=== PATIENT | female | born 1960 | race Caucasian/White ===

== ENCOUNTER 2023-04-12 17:15 | Outpatient (OUT) | payer OTHER, SELFPAY ==
[2023-04-12] MEDS: COVID VAC 23-24(12UP)MODERNA/PF 50 MCG/0.5 ML VIAL IM (17:30)
[2023-04-12] MEDS: FLU VACC QS 23-24(6MS UP)CEL/PF 60 MCG/0.5 ML SYRINGE IM (17:33)
== END 2023-04-12 17:16 | disposition home or self-care (01) ==
LOC: VACCLI 17:23
PROVIDERS: PCP Family Medicine
DX: Z23 Encounter for immunization (principal)
CPT/HCPCS: 90674; 91322; G0008

== ENCOUNTER 2023-07-03 08:38 | Outpatient (OUT) | payer OTHER, SELFPAY ==
--- NOTE | 2023-07-03 | NM_ITS ---
Patient Name: RITA PRADO MR#: [id number] : 1960 Exam Date: 07/03/2023 Ordering Doctor: DR MAGGIE BALDWIN . RADIOLOGY REPORT PROCEDURE: NM TRISTAN PERF SPECT REST STR COMPARISON: None. INDICATIONS: SOB, ABNORMAL EKG TECHNIQUE: Exam Description: Stress/Rest one day protocol gated SPECT Rest Imagin.8 mCi Tc-99m Cardiolite IV on 07/03/2023 Stress Imaging 31.5 mCi Tc-99m Cardiolite IV on 07/03/2023 Exercise Protocol: Brian Heart Rate (bpm): Rest: 65 Max: 153 PMHR: 97 Blood Pressure: Rest: 158/102 Max: 198/112 Exercise Time: Minutes: 6 Seconds: 12 Stage Reached: Stage: 3 Mets 7.6 Symptoms: Rest and peak stress ECG findings were abnormal and the exercise portion of the study was Non-diagnostic per attending physician Dr. Stern due to EKG changes. For more details please see separate cardiac stress test report. FINDINGS: QUALITY OF STUDY: Good. PERFUSION DEFECT: None. LOCATION: N/A SIZE: N/A. SEVERITY: N/A. TYPE: N/A. WALL MOTION: Normal. LV SIZE: Normal. 69 mL. TID / TCD: None; 0.8 LVEF: Normal. Calculated EF 70%. SUMMARY: Myocardial perfusion imaging study is NORMAL. CONCLUSION: 1. No reversible ischemia 2. Abnormal exercise test secondary to EKG changes Dictated by: Vincent Richmond MD on 07/04/2023 at 07:50 Approved by: Vincent Richmond MD on 07/04/2023 at 07:54
--- OUTSIDE RECORDS SUMMARY | 2023-07-03 08:44 | XMS_ITS | CCD ---
Author Name Unknown Address [address] [facility] [facility] [address] [place] [address] Organization [facility] Care Team Providers Care Chainman Name Role Phone HOY ., DR SERRANO Consulting Unavailable HOY ., DR SERRANO Primary Care Unavailable HOY ., DR SERRANO Admitting Unavailable HOY ., DR SERRANO Attending Unavailable [place], DR KIRSSY Gallardo Consulting Unavailable HOY ., DR SERRANO Admitting Unavailable HOY ., DR SERRANO Attending Unavailable HOY ., DR SERRANO Consulting Unavailable HOY ., DR SERRANO Primary Care Unavailable ELVIRA, DR ANOOP Clinton Consulting Unavailable HOY ., DR SERRANO Primary Care Unavailable HOY ., DR SERRANO Admitting Unavailable HOY ., DR SERRANO Attending Unavailable HOY ., DR SERRANO Consulting Unavailable HOY ., DR SERRANO Primary Care Unavailable HOY ., DR SERRANO Consulting Unavailable HOY ., DR SERRANO Admitting Unavailable HOY ., DR SERRANO Attending Unavailable HOY ., DR SERRANO Primary Care Unavailable HOY ., DR SERRANO Consulting Unavailable HOY ., DR SERRANO Admitting Unavailable HOY ., DR SERRANO Attending Unavailable HOY ., DR SERRANO Primary Care Unavailable HOY ., DR SERRANO Consulting Unavailable HOY ., DR SERRANO Admitting Unavailable HOY ., DR SERRANO Attending Unavailable STEVE DUARTE Attending Unavailable STEVE DUARTE Referring Unavailable Problems Active Problems Problem Classification Problem Date Documented Da te Episodic/Chronic Other screening for suspected conditions (not mental disorders or infectious disease) (4 sources) Encounter for screening mammogram for malignant neoplasm of breast; Translations: [ENC SCR MAMMO MALIG NEOPLASM BREAST] Onset: 10-17-2022 Episodic Residual codes; unclassified (1 source) Family history of leukemia; Translations: [FAMILY HISTORY OF LEUKEMIA] Onset: 10-24-2022 Episodic Residual codes; unclassified (1 source) Family history of malignant neoplasm of prostate; Translations: [FAMILY HX MALIG NEOPLASM PROSTATE] Onset: 10-24-2022 Episodic Residual codes; unclassified (1 source) Family history of malignant neoplasm, unspecified; Translations: [FAM HX MALIGNANT NEOPLASM UNS] Onset: 10-24-2022 Episodic Unclassified (3 sources) CONTACT W/AND (SUSP) EXPOS COVID-19; Translations: [CONTACT W/AND (SUSP) EXPOS COVID-19] Onset: 05-29-2022 Unclassified (1 source) COUGH, UNSPECIFIED; Translations: [COUGH, UNSPECIFIED] Onset: 05-29-2022 Past or Other Problems Problem Classification Problem Date Documented Da te Episodic/Chronic Other connective tissue disease (4 sources) Pain in right foot; Translations: [PAIN IN RIGHT FOOT] Onset: 11-30-2021 Episodic Other upper respiratory disease (1 source) Nasal congestion; Translations: [NASAL CONGESTION] Onset: 05-29-2022 Episodic Unclassified (1 source) CONTACT W/AND (SUSP) EXPOS COVID-19; Translations: [CONTACT W/AND (SUSP) EXPOS COVID-19] Onset: 05-25-2022 Results Test Name Value Interpretation Reference Range Facility MG MAMM SCREEN 3D SHELIA CADon 10-17-2022 MG MAMM SCREEN 3D HSELIA CAD Patient: RITA PRADO Exam Date: 10/17/2022 : 1960 Gender:F Ordering : DR MAGGIE BALDWIN . Admission #: [id number] Family : Order #: [id number] CLICK HERE TO VIEW EXAM RADIOLOGY REPORT PROCEDURE: MAMMOGRAM SCREENING 3D BILATERAL CAD COMPARISON: MG MAMM SCREEN SHELIA W CAD, 12/03/2018. MG MAMM SCREEN 3D SHELIA CAD, 04/28/2021. INDICATIONS: Screening mammography Calculator Name NCI Breast Cancer Risk Assessment Tool 5 Year Breast Cancer Risk 1.10% Lifetime Breast Cancer Risk 5.00% Personal Breast Cancer No Personal Ovarian Cancer No Treatments None Family Cancers Grandmother-maternal with leukemia cancer at age 50; Uncle-maternal with prostate cancer at age 70; Grandfather-paternal with unknown cancer at age 80. LOCATION: [facility] BREAST COMPOSITION: Heterogeneously dense,which may obscure small masses. FINDINGS: DIAGNOSTIC CATEGORY 1--NEGATIVE. NO CHANGE FROM COMPARISON ASSESSMENT. Scattered benign-appearing calcifications are present. Scattered benign-appearing lymph nodes are present. RIGHT BREAST: No significant suspicious finding. LEFT BREAST: No significant suspicious finding. RECOMMENDATIONS: ROUTINE MAMMOGRAM AND CLINICAL EVALUATION IN 12 MONTHS. PLEASE NOTE: A NORMAL MAMMOGRAM DOES NOT EXCLUDE THE POSSIBILITY OF BREAST CANCER. A CLINICALLY SUSPICIOUS PALPABLE LUMP SHOULD BE BIOPSIED. Dictated by: Krissy Richmond MD on 10/18/2022 at 09:11 Approved by: Krissy Richmond MD on 10/18/2022 at 09:12 Normal [facility] OCC BLD IMMUNO SCREENon 04-2 OCCULT BLOOD Negative Normal NEGATIVE [facility] Comment on above: Performed By: #### O BSCRN #### [facility] [address] [place] [address] Dr. Estrella Curtis INSULINon 08-31-2022 Insulin 4.5 uIU/mL Normal 2.6-24.9 [facility] Comment on above: Performed By: #### I NSULIN #### [facility] [address] [place] [address] Dr. Estrella Curtis CBC AUTO DIFFon 08-29-2022 BASO # 0.0 103/ul Normal 0.0-0.1 [facility] Comment on above: Performed By: #### C BC #### [facility] [address] [place] [address] Dr. Estrella Curtis Basophils/100 WBC (Bld) 0.4 % Normal 0.2-2.0 [facility] Comment on above: Performed By: #### C BC #### [facility] [address] [place] [address] Dr. Estrella Curtis EO # 0.1 103/ul Normal 0.0-0.7 [facility] Comment on above: Performed By: #### C BC #### [facility] [address] [place] [address] Dr. Estrella Curtis Eosinophils/100 WBC (Bld) 2.8 % Normal 0.9-7.0 [facility] Comment on above: Performed By: #### C BC #### [facility] [address] [place] [address] Dr. Estrella Curtis Erythrocyte distribution width (RBC) [Ratio] 13.3 % Normal 11.0-15.0 [facility] Comment on above: Performed By: #### C BC #### [facility] [address] [place] [address] Dr. Estrella Curtis Hematocrit (Bld) [Volume fraction] 37.4 % Normal 36.0-48.0 [facility] Comment on above: Performed By: #### C BC #### [facility] [address] [place] [address] Dr. Estrella Curtis Hemoglobin (Bld) [Mass/Vol] 12.4 g/dL Normal 12.0-16.0 [facility] Comment on above: Performed By: #### C BC #### [facility] [address] [place] [address] Dr. Estrella Curtis IG # 0.01 10e3/ul Normal 0.00-0.03 [facility] Comment on above: Performed By: #### C BC #### [facility] [address] [place] [address] Dr. Estrella Curtis IG % 0.2 % Normal 0.0-0.5 [facility] Comment on above: Performed By: #### C BC #### [facility] [address] [place] [address] Dr. Estrella Curtis LYMPH # 1.6 103/ul Normal 1.2-3.8 [facility] Comment on above: Performed By: #### C BC #### [facility] [address] [place] [address] Dr. Estrella Curtis Lymphocytes/100 WBC (Bld) 34.3 % Normal 20.5-60.0 [facility] Comment on above: Performed By: #### C BC #### [facility] [address] [place] [address] Dr. Estrella Curtis MANUAL DIFF REQ NO Normal [facility] Comment on above: Performed By: #### C BC #### [facility] [address] [place] [address] Dr. Estrella Curtis MCH (RBC) [Entitic mass] 29.7 pg Normal 26.7-34.0 [facility] Comment on above: Performed By: #### C BC #### [facility] [address] [address] [address] Estrella Curtis MCHC (RBC) [Mass/Vol] 33.2 g/dL Normal 29.9-35.2 [facility] Comment on above: Performed By: #### C BC #### [facility] [address] [address] [address] Estrella Curtis MCV (RBC) [Entitic vol] 89.5 fL Normal 81.0-99.0 [facility] Comment on above: Performed By: #### C BC #### [facility] [address] [place] [address] Dr. Estrella Curtis MONO # 0.4 103/ul Normal 0.3-0.8 [facility] Comment on above: Performed By: #### C BC #### [facility] [address] [place] [address] Dr. Estrella Curtis Monocytes/100 WBC (Bld) 9.2 % Normal 1.7-12.0 [facility] Comment on above: Performed By: #### C BC #### [facility] [address] [place] [address] Dr. Estrella Curtis NEUT # 2.4 103/ul Normal 1.4-6.5 [facility] Comment on above: Performed By: #### C BC #### [facility] [address] [place] [address] Dr. Estrella Curtis Neutrophils/100 WBC (Bld) 53.1 % Normal 43.0-75.0 [facility] Comment on above: Performed By: #### C BC #### [facility] [address] [place] [address] Dr. Estrella Curtis Platelet mean volume (Bld) [Entitic vol] 10.1 fL Normal 9.5-13.5 [facility] Comment on above: Performed By: #### C BC #### [facility] [address] [place] [address] Dr. Estrella Curtis PLT 276 103/ul Normal 150-450 [facility] Comment on above: Performed By: #### C BC #### [facility] [address] [address] [address] Estrella Curtis RBC 4.18 106/ul Critically low 4.20-5.40 [facility] Comment on above: Performed By: #### C BC #### [facility] [address] [address] [address] Estrella Curtis WBC 4.6 103/ul Normal 4.0-11.0 [facility] Comment on above: Performed By: #### C BC #### [facility] [address] [address] [address] Estrella Curtis FREE THYROXINE INDEX T7on FTI 3.14 Normal 1.30-4.50 [facility] Comment on above: Performed By: #### T SH, T7, LIPID, CMP ####[facility] [id number] [address]Dr. Estrella Curtis T3U 33.0 % Normal 30.0-39.0 [facility] Comment on above: Performed By: #### T SH, T7, LIPID, CMP ####[facility] [id number] [id number] Estrella Curtis T4 [Mass/Vol] 9.50 ug/dL Normal 4.80-13.90 [facility] Comment on above: Performed By: #### T SH, T7, LIPID, CMP ####[facility] [id number] [id number] Estrella Curtis GLYCOHEMOGLOBIN A1Con 2022 ADA RECOMMENDATION SEE BELOW Normal [facility] Comment on above: Result Comment: ADA RECOMMENDED LIMIT 4.0 - 6.0 ADA THERAPEUTIC TARGET < 7.0 ACTION SUGGESTED > 7.0 Performed By: #### A 1C #### [facility] [address] [address] [address] Estrella Curtis Glucose [Mass/Vol] 120 mg/dL Normal [facility] Comment on above: Performed By: #### A 1C #### [facility] [address] [address] [address] Estrella Curtis HbA1c (Bld) [Mass fraction] 5.8 % Normal 4.5-6.2 [facility] Comment on above: Performed By: #### A 1C #### [facility] [address] [place] [address] Dr. Estrella Curtis IRONon 08-29-2022 Iron [Mass/Vol] 82.0 ug/dL Normal 50.0-170.0 [facility] Comment on above: Performed By: #### I MONIKA #### [facility] [address] [place] [address] Dr. Estrella Curtis LIPID PROFILEon 08-29-2022 CHOL-HDL RATIO NORM SEE BELOW Normal [facility] Comment on above: Result Comment: 3.3 - 4.4 LOW RISK 4.4 - 7.1 AVERAGE RISK 7.1 - 11.0 MODERATE RISK >11.0 HIGH RISK Performed By: #### T SH, T7, LIPID, CMP #### [facility] [address] [place] [address] Dr. Estrella Curtis Cholesterol [Mass/Vol] 203 mg/dL Critically high <=200 [facility] Comment on above: Performed By: #### T SH, T7, LIPID, CMP #### [facility] [address] [place] [address] Dr. Estrella Curtis Cholesterol in HDL [Mass/Vol] 62 mg/dL Critically high 40-60 [facility] Comment on above: Performed By: #### T SH, T7, LIPID, CMP #### [facility] [address] [place] [address] Dr. Estrella Curtis Cholesterol in LDL [Mass/Vol] 122.2 mg/dL Normal [facility] Comment on above: Performed By: #### T SH, T7, LIPID, CMP #### [facility] [address] [place] [address] Dr. Estrella Curtis Cholesterol.total/Cho lesterol in HDL [Mass ratio] 3.3 {ratio} Normal [facility] Comment on above: Performed By: #### T SH, T7, LIPID, CMP #### [facility] [address] [place] [address] Dr. Estrella Curtis HDL NORMAL > or = 60 mg/dl - LO W CARDIOVASCULAR RISK <40 mg/dl - HIGH CARDIOVASCULAR RISK Normal [facility] Comment on above: Performed By: #### T SH, T7, LIPID, CMP #### [facility] [address] [address] [address] Estrella Curtis LDL CALC NORMAL SEE BELOW Normal [facility] Comment on above: Result Comment: <100 mg/dl OPTIMAL 100 - 129 mg/dl NEAR OR ABOVE OPTIMAL 130 - 159 mg/dl BORDERLINE HIGH 160 - 189 mg/dl HIGH >190 mg/dl VERY HIGH Performed By: #### T SH, T7, LIPID, CMP #### [facility] [address] [address] [address] Estrella Curtis Triglyceride [Mass/Vol] 94 mg/dL Normal <=150 [facility] Comment on above: Performed By: #### T SH, T7, LIPID, CMP #### [facility] [address] [address] [address] Estrella Curtis VLDL CALC 18.8 mg/dL Normal [facility] Comment on above: Performed By: #### T SH, T7, LIPID, CMP #### [facility] [address] [address] [address] Estrella Curtis PROF 14(COMP METB)on 023 Albumin [Mass/Vol] 4.3 g/dL Normal 3.4-5.0 [facility] Comment on above: Performed By: #### T SH, T7, LIPID, CMP #### [facility] [address] [address] [address] Estrella Curtis Albumin/Globulin [Mass ratio] 1.3 {ratio} Normal [facility] Comment on above: Performed By: #### T SH, T7, LIPID, CMP #### [facility] [address] [address] [address] Estrella Curtis ALP [Catalytic activity/Vol] 84 U/L Normal 46-116 [facility] Comment on above: Performed By: #### T SH, T7, LIPID, CMP #### [facility] [address] [place] [address] Dr. Estrella Curtis ALT [Catalytic activity/Vol] 48 U/L Normal 14-59 [facility] Comment on above: Performed By: #### T SH, T7, LIPID, CMP #### [facility] [address] [address] [address] Estrella Curtis Anion gap [Moles/Vol] 12.0 mmol/L Normal [facility] Comment on above: Performed By: #### T SH, T7, LIPID, CMP #### [facility] [address] [address] [address] Estrella Curtis AST [Catalytic activity/Vol] 33 U/L Normal 15-37 [facility] Comment on above: Performed By: #### T SH, T7, LIPID, CMP #### [facility] [address] [place] [address] Dr. Estrella Curtis Bilirubin [Mass/Vol] 0.5 mg/dL Normal 0.2-1.0 [facility] Comment on above: Performed By: #### T SH, T7, LIPID, CMP #### [facility] [address] [place] [address] Dr. Estrella Curtis Calcium [Mass/Vol] 9.3 mg/dL Normal 8.5-10.1 [facility] Comment on above: Performed By: #### T SH, T7, LIPID, CMP #### [facility] [address] [place] [address] Dr. Estrella Curtis Chloride [Moles/Vol] 104 mmol/L Normal 98-107 [facility] Comment on above: Performed By: #### T SH, T7, LIPID, CMP #### [facility] [address] [place] [address] Dr. Estrella Curtis CO2 [Moles/Vol] 29.5 mmol/L Normal 21.0-32.0 [facility] Comment on above: Performed By: #### T SH, T7, LIPID, CMP #### [facility] [address] [address] [address] Estrella Curtis Creatinine [Mass/Vol] 0.89 mg/dL Normal 0.55-1.02 [facility] Comment on above: Performed By: #### T SH, T7, LIPID, CMP #### [facility] [address] [address] [address] Estrella Curtis EGFR-AF TUNISIAN >60 Normal >=60 [facility] Comment on above: Performed By: #### T SH, T7, LIPID, CMP #### [facility] [address] [address] [address] sEtrella Curtis EGFR-NON AF TUNISIAN >60 Normal >=60 [facility] Comment on above: Performed By: #### T SH, T7, LIPID, CMP #### [facility] [address] [address] [address] Estrella Curtis Globulin (S) [Mass/Vol] 3.2 g/dL Normal [facility] Comment on above: Performed By: #### T SH, T7, LIPID, CMP #### [facility] [address] [place] [address] Dr. Estrella Curtis Glucose [Mass/Vol] 97 mg/dL Normal 74-106 [facility] Comment on above: Performed By: #### T SH, T7, LIPID, CMP #### [facility] [address] [address] [address] Estrella Curtis Potassium [Moles/Vol] 4.5 mmol/L Normal 3.5-5.1 [facility] Comment on above: Performed By: #### T SH, T7, LIPID, CMP #### [facility] [address] [address] [address] Estrella Curtis Protein [Mass/Vol] 7.5 g/dL Normal 6.4-8.2 [facility] Comment on above: Performed By: #### T SH, T7, LIPID, CMP #### [facility] [address] [address] [address] Estrella Curtis Sodium [Moles/Vol] 141 mmol/L Normal 136-145 [facility] Comment on above: Performed By: #### T SH, T7, LIPID, CMP #### [facility] [address] [address] [address] Estrella Curtis Urea nitrogen [Mass/Vol] 15.0 mg/dL Normal 7.0-18.0 [facility] Comment on above: Performed By: #### T SH, T7, LIPID, CMP #### [facility] [address] [place], [place] [address] Dr. Estrella Curtis Urea nitrogen/Creatinine [Mass ratio] 16.9 mg/mg Normal [facility] Comment on above: Performed By: #### T SH, T7, LIPID, CMP #### [facility] [address] [place], [place] [address] Dr. Estrella Curtis TSHon 08-29-2022 TSH 5.036 uIU/mL Critically high 0.358-3.740 [facility] Comment on above: Performed By: #### T SH, T7, LIPID, CMP ####[facility] [address] [place], [place] [address]SrNelly Curtis Covid-19 PCR (CVDTBH)on SARS-CoV-2 (COVID-19) RNA FRANCISCO J+probe Ql (Unsp spec) Not detected Normal NOT DETECTED [facility] Comment on above: Result Comment: When diagnostic testing is negative, the possibility of a false negative should be considered in the context of a patient's recent exposures and the presence of clinical signs and symptoms consistent with SARS-CoV-2. This test is not yet approved or cleared by the [place] FDA. When there are no FDA-approved or cleared tests available, and other criteria are met, FDA can make tests available under an emergency access mechanism called an Emergency Use Authorization (EUA). The EUA for this test is supported by the [place] of Health and Human Service's declaration that circumstances exist to justify the emergency use of in vitro diagnostics for the detection and/or diagnosis of the virus that causes COVID-19. This EUA will remain in effect for the duration of the COVID-19 declaration justifying emergency of IVDs, unless it is terminated or revoked by the FDA (after which the test may no longer be used). Performed By: #### C VDTBH ####[facility] [address] [place], [place] [address]L[address] Estrella Curtis INFLUENZA A AND B AGon 05-25 INFLUBNEGH SEE BELOW Normal [facility] Comment on above: Result Comment: Nega tive for Flu B protein antigen. Infection due to Flu B cannot be ruled out. Flu B antigen in the sample may be below the detection limit of the test. Performed By: #### I NFLUAB #### [facility] [address] [address] [address] Estrella Curtis INFLUENZA A AG Positive Abnormal NEGATIVE SEE COMMENT [facility] Comment on above: Performed By: #### I NFLUAB #### [facility] [address] [address] [address] Estrella Curtis INFLUENZA B AG Negative Normal NEGATIVE SEE COMMENT [facility] Comment on above: Performed By: #### I NFLUAB #### [facility] [address] [address] [address] Estrella Curtis INFLUPOSH SEE BELOW Normal [facility] Comment on above: Result Comment: NOTE : Live attenuated influenzae vaccine viruses can cause a positive result for a rapid influenza diagnostic test if administered up to 7 days prior to rapid testing. Performed By: #### I NFLUAB #### [facility] [address] [address] [address] Estrella Curtis INTERNAL CONTROLS Within Normal Limits Normal Wi thin Normal Limits [facility] Comment on above: Performed By: #### I NFLUAB #### [facility] [address] [address] [address] Estrella Curtis Encounters Encounter Date Encounter Type Care Provider Facility Start: 06-26-2023 End: 06-26-2023 ambulatory STEVE DUARTE Not Available Start: 10-17-2022 End: 10-18-[address] MAGGIE BALDWIN . Facility:[facility] Start: 10-12-2022 Encounter for genera l adult medical examination without abnormal findings DR MAGGIE BALDWIN . [facility] Start: 10-06-2022 End: 10-06-[address] MAGGIE BALDWIN . Facility:[facility] Start: 10-06-2022 End: 10-06-2022 Encounter for general adult medical examination without abnormal findings DR MAGGIE BALDWIN . Facility:[facility] Start: 08-29-2022 End: 08-30-[address] MGAGIE BALDWIN . Facility:[facility] Start: 05-25-2022 End: 05-25-[address] MAGGIE BALDWIN . Facility: Start: 05-17-2022 End: 05-18-[address] MAGGIE BALDWIN . Facility: Start: 11-30-2021 End: 12-01-[address] MAGGIE BALDWIN . Facility: Payers Date Payer Category Payer Unknown [id number] 2.16.84 [id number] 1960 Unknown [id number] 2.16.84 [id number] 1960 Unknown [id number] 2.16.84 [id number] 1960 Unknown [id number] 2.16.84 [id number] 1960 Unknown [id number] 2.16.84 [id number] 1960 Unknown [id number] 2.16.84 [id number] 1960 Unknown [id number] 2.16.84 [id number] 1960 Unknown [id number] 2.16.84 [id number] 1959 Private Health Insurance [id number] 1959 Self-pay [id number] Unknown [id number] 2.16.84 [id number] Clinical Note 12-01-2021 Note Date & Type Note Facility 12-01-2021 Note PROCEDURE: XR FOOT R T MIN 3 VIEWS HISTORY: Pain in right foot ; acute second metatarsal pain since twisting injury 4 days ago COMPARISON: None. FINDINGS: BONES:No fracture, acute abnormality, or significant arthropathy. SOFT TISSUES:No visible soft tissue swelling. EFFUSION:None visible. OTHER: Negative. IMPRESSION: 1. No acute bone abnormality. 2. Minimal degenerative changes. Electronically authenticated by: ANOOP FELIX Date: 2021-12-01 11:20 [facility] Summary Purpose Family History No Family History Records FoundNo Family History Records Found Advance Directives No Advanced Directives Records FoundNo Advanced Directives Records Found Additional Source Comments INFORMATION SOURCE (unrecogn ized section and content) DATE CREATED AUTHOR [facility]2022 [facility] DATE CREATED AUTHOR AUTHOR'S ORGANIZ ATION 06/27/2023 [facility] FOR RECORDS PERTAINING TO PATIENTS WHO ARE OR HAVE BEEN ENROLLED IN A CHEMICAL DEPENDENCY/SUBSTANCEABUSE PROGRAM, SOME INFORMATION MAY BE OMITTED. This clinical summary was aggregated from multiple sources. Caution should be exercised in using it in the provision of clinical care. This summary normalizes information from multiple sources, and as a consequence, information in this document may materially change the coding, format and clinical context of patient data. In addition, data may be omitted in some cases. CLINICAL DECISIONS SHOULD BE BASED ON THE PRIMARY CLINICAL RECORDS. [facility] [employer] provides no warranty or guarantee of the accuracy or completeness of information in this document.
--- NOTE | 2023-07-03 17:33 | PM.STRESS ---
Stress Test Stress Test Requesting physician: Gus Herr Procedure: Exercise Cardiolite stress test General Information: Reason for Stress Test: Dyspnea, abnormal EKG Cardiac History and Risk Factors: No personal history. Mother had CABG x4. Resting 12 - Lead Electrocardiogram: Rate & rhythm: Normal sinus at a rate of 62. [place]: Normal T-waves: Flattened to inverted in III ST-segments: Normal orientation The aforementioned abnormal EKG is not available for comparison Stress Test: Protocol: Brian protocol was followed, with injection of Cardiolite once target heart rate was achieved. Exercise capacity: Fair exercise capacity. Total exercise time of 6 minutes 12 seconds reached Brian stage 3 at 3.4MPH, 14% grade, & 7.6 METs. Blood pressure: Initial: 158/102, Maximum: 198/112, Recovery: 148/90 Rate & rhythm: Patient remained in sinus rhythm during the exercise and recovery portions of the study.? The maximum heart rate was 153, which was 97% of the maximum predicted heart rate 157. ST-segments & T-waves: During exercise, the T waves in lead III were positive orientation; they returned to baseline inverted orientation by the end of recovery. Patient response/symptoms: There were no symptoms similar to the chief complaint. Interpretation: Non-diagnostic exercise stress test based on T-wave changed in III. No reciprocal changes were noted in II or aVF. No reproducible symptoms. Cardiolite imaging interpretation will be reported separately. Clinical correlation required.?
== END 2023-07-03 08:39 | disposition home or self-care (01) ==
LOC: NM 08:38
PROVIDERS: PCP Family Medicine; Visit Provider Family Medicine
DX: R06.02 Shortness of breath (principal); R94.31 Abnormal electrocardiogram [ECG] [EKG]
CPT/HCPCS: 78452; 93017; A9500

== ENCOUNTER 2023-11-15 14:45 | Outpatient (OUT) | payer OTHER, SELFPAY ==
--- NOTE | 2023-11-15 14:50 | MM_ITS ---
Patient Name: RITA PRADO MR#: [id number] : 1960 Exam Date: 11/15/2023 Ordering Doctor: DR Gus Herr . RADIOLOGY REPORT PROCEDURE: MM TOMOSYNTHESIS SCREENING BI COMPARISON: MG MAMM SCREEN 3D SHELIA CAD, 04/28/2021. MG MAMM SCREEN 3D SHELIA CAD, 10/17/2022. INDICATIONS: Screening Calculator Name NCI Breast Cancer Risk Assessment Tool 5 Year Breast Cancer Risk 1.10% Lifetime Breast Cancer Risk 4.90% Personal Breast Cancer No Personal Ovarian Cancer No Treatments None Family Cancers Grandmother-maternal with leukemia cancer at age ~50; Uncle-maternal with prostate cancer at age ~70; Grandfather-paternal with unknown cancer at age ~80. LOCATION: [facility] BREAST COMPOSITION: The breasts are heterogeneously dense,which may obscure small masses. FINDINGS: DIAGNOSTIC CATEGORY 1--NEGATIVE. Scattered benign-appearing lymph nodes are present. RIGHT BREAST: No significant suspicious finding. LEFT BREAST: No significant suspicious finding. RECOMMENDATIONS: ROUTINE MAMMOGRAM AND CLINICAL EVALUATION IN 12 MONTHS. PLEASE NOTE: A NORMAL MAMMOGRAM DOES NOT EXCLUDE THE POSSIBILITY OF BREAST CANCER. A CLINICALLY SUSPICIOUS PALPABLE LUMP SHOULD BE BIOPSIED. Dictated by: Vincent Richmond MD on 11/15/2023 at 15:30 Approved by: Vincent Richmond MD on 11/15/2023 at 15:32
== END 2023-11-15 14:46 | disposition home or self-care (01) ==
LOC: MAMMO 14:45
PROVIDERS: PCP Family Medicine; Visit Provider Family Medicine
DX: Z12.31 Encounter for screening mammogram for malignant neoplasm of breast (principal); Z80.6 Family history of leukemia; Z80.42 Family history of malignant neoplasm of prostate; Z80.8 Family history of malignant neoplasm of other organs or systems
CPT/HCPCS: 77063; 77067

== ENCOUNTER 2024-01-01 08:09 | Outpatient (OUT) | payer OTHER, SELFPAY ==
--- OUTSIDE RECORDS SUMMARY | 2024-01-01 08:20 | XMS_ITS | CCD ---
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 Role Phone HARSHILY ., DR SERRANO Consulting Unavailable HOY ., DR SERRANO Primary Care Unavailable HOY ., DR SERRANO Admitting Unavailable HOY ., DR SERRANO Attending Unavailable JAY, DR KRISSY Gallardo Consulting Unavailable HOY ., DR SERRANO [...] Unavailable HOY ., DR SERRANO Attending Unavailable DUARTE, STEVE T Attending Unavailable DUARTE, STEVE T Referring Unavailable DUARTE STEVE T Attending Unavailable DUARTE STEVE T Attending Unavailable GERALD STEVE T Attending Unavailable Maggie Herr Primary Care Physician [phone] RAMONA CHAVARRIA Attending Unavailable RAMONA CHAVARRIA Attending Unavailable RAMONA CHAVARRIA Admitting Unavailable MAGGIE HERR Primary Care Unavailable AUGUSTINA YOO Referring Unavailabl aurelia YOO, AUGUSTINA KING Referring Unavailabl e MAGGIE HERR Primary Care Unavailable AUGUSTINA YOO Attending Unavailabl e YOO, AUGUSTINA KING Referring MAGGIE Noble Primary Care Unavailable AUGUSTINA YOO Attending AUGUSTINA Whitman Referring MAGGIE Noble Primary Care Unavailable Allergies Allergy Classification Reported Allergen(s) Allergy Type Date of Onset Reaction(s) Facility (1 source) No Known Medication Allergies; Translations: [No Known Medication Allergies] Propensity to adverse reactions (disorder) [facility] Repository Medications Current Medications Medication Drug Class(es) Dates Sig (Normalized) Sig (Original) aspirin 81 mg oral capsule (2 sources) Platelet Aggregation Inhibitor, Nonsteroidal Anti-inflammatory Drug Start: 10-23-2023 take 1 capsule by mouth every twenty-four hours aspirin 81 mg oral capsule 81 mg = 1 cap(s), Oral, q24hr Start Date: 10/23/23 Status: Ordered Iron Chews (2 sources) Start: 10-23-2023 take 1 mg by mouth once daily Iron Chews mg, Oral, Daily Start Date: 10/23/23 Status: Ordered meloxicam 15 mg oral tablet (2 sources) Nonsteroidal Anti-inflammatory Drug Start: 10-23-2023 meloxicam 15 mg Tab 15 mg = 1 tab(s) Start Date: 10/23/23 Status: Ordered Metoprolol (2 sources) beta-Adrenergic Mark Start: 10-23-2023 Metoprolol tartrate 50 mg Tab 50 mg = 1 tab(s) Start Date: 10/23/23 Status: Ordered pantoprazole 40 mg delayed release oral tablet (2 sources) Proton Pump Inhibitor Start: 10-23-[address] Tab 40 mg = 1 tab(s) Start Date: 10/23/23 Status: Ordered simvastatin 20 mg oral tablet (2 sources) HMG-CoA Reductase Inhibitor Start: 10-23-2023 simvastatin 20 mg Tab 20 mg = 1 tab(s) Start Date: 10/23/23 Status: Ordered Problems Active Problems Problem Classification Problem Date Documented Date Episodic/Chronic Abdominal pain (7 sources) Abdominal pain; Translations: [Unspecified abdominal pain] Onset: 10-23-2023 Episodic Disorders of lipid metabolism (2 sources) Hyperlipidemia 10-23-2023 Chronic Essential hypertension (2 sources) Hypertensive disorder 10-23-2023 Chronic Genitourinary symptoms and ill-defined conditions (6 sources) Increased frequency of urination; Translations: [Frequency of micturition] Onset: 10-23-2023 Episodic Inflammatory diseases of female pelvic organs (1 source) Subacute and chronic vaginitis; Translations: [Subacute and chronic vaginitis] Onset: 11-29-2023 Episodic Other diseases of bladder and urethra (3 sources) Urethral stricture; Translations: [Other urethral stricture, female] Onset: 10-23-2023 Episodic Other female genital disorders (1 source) Noninflammatory disorder of the vagina; Translations: [Other specified noninflammatory disorders of vagina] Onset: 10-23-2023 Episodic Other female genital disorders (2 sources) Vaginal odor 10-23-2023 Episodic Other screening for suspected conditions (not mental disorders or infectious disease) (5 sources) Encounter for screening mammogram for malignant neoplasm of breast; Translations: [Encounter for screening for malignant neoplasm of cervix] Onset: 10-17-2022 Episodic Residual codes; unclassified (1 source) Family history of leukemia; Translations: [FAMILY HISTORY OF LEUKEMIA] Onset: 10-24-2022 Episodic Residual codes; unclassified (1 source) Family history of malignant neoplasm of prostate; Translations: [FAMILY HX MALIG NEOPLASM PROSTATE] Onset: 10-24-2022 Episodic Residual codes; unclassified (1 source) Family history of malignant neoplasm, unspecified; Translations: [FAM HX MALIGNANT NEOPLASM UNS] Onset: 10-24-2022 Episodic Screening and history of mental health and substance abuse codes (3 sources) H/O: Disorder; Translations: [Personal history of nicotine dependence] Onset: 10-23-2023 Episodic Unclassified (3 sources) CONTACT W/AND (SUSP) [...] Test Name Value Interpretation Reference Range Facility CT ABDOMEN PELVIS W IV CONTR Yael 12-11-2023 CT ABDOMEN PELVIS W IV CONTRAST EXAMINATION: CT OF THE ABDOMEN AND PELVIS WITH CONTRAST 12/05/2023 4:45 pm TECHNIQUE: CT of the abdomen and pelvis was performed with the administration of intravenous contrast. Multiplanar reformatted images are provided for review. Automated exposure control, iterative reconstruction, and/or weight based adjustment of the mA/kV was utilized to reduce the radiation dose to as low as reasonably achievable. COMPARISON: Pelvic ultrasound 11/29/2023. HISTORY: ORDERING SYSTEM PROVIDED HISTORY: Pelvic pain TECHNOLOGIST PROVIDED HISTORY: STAT Creatinine as needed:->Yes FINDINGS: Lung Bases: Bibasilar dependent atelectasis. No focal consolidation.. Inferior Mediastinum: Cardiomegaly.. Liver: Normal size and morphology. Diffusely hypoattenuating compatible with affected is the. Gallbladder: No calcified gallstones or sludge. No wall thickening.. Biliary System: Unremarkable.. Pancreas: Normal.. Spleen: Normal.. Adrenals: Normal. Kidneys: Normal bilaterally.. Ureters: Normal course and caliber bilaterally. . Bladder: Normal. . Pelvis: No pelvic masses. Multifibroid uterus better appreciated on prior ultrasound 11/29/2023. No abnormal pelvic fluid.. Stomach: Normal. Duodenum: Normal. Small Bowel: Normal. Colon: Sigmoid diverticulosis without diverticulitis.. Appendix: Normal. Lymph Nodes: No lymphadenopathy. Peritoneum: No ascites or free air. Retroperitoneum: Normal. Vessels: Minimal atherosclerotic plaques of the abdominal aorta and branch vessels. Prominent right gonadal vein with calcifications along its course.. Abdominal Wall: Small fat containing bilateral inguinal hernias.. Bones: Degenerative changes of the pubic symphysis, bilateral sacroiliac joints and multilevel degenerative change throughout the lumbar spine. Degenerative changes of the bilateral femoroacetabular joints. Irregularity of the right lateral posterior ribs likely sequelae of prior trauma.. IMPRESSION: 1. No acute intra-abdominal or pelvic process. 2. Hepatic steatosis. 3. Sigmoid diverticulosis without diverticulitis. 4. Multifibroid uterus better appreciated on prior ultrasound 11/29/2023. 5. Prominent right gonadal vein with calcifications along its course. Correlate for pelvic congestion syndrome. 6. Small fat containing bilateral inguinal hernias. Interpreted by: Hayder Nixon DO Signed by: Hayder Nixon DO 12/11/23 Final result Normal [facility] Creatinine w/GFRon Creatinine [Mass/Vol] 0.9 mg/dL Normal 0.5-0.9 [facility] Comment on above: Performed By: #### C REG #### [facility] [address] [place], [place] [id number] Estimator Binding: Krissy Sweet MD GFR/1.73 sq M.predicted among non-blacks MDRD (S/P/Bld) [Vol rate/Area] 72 mL/min/{1.73_m2} Normal >60 [facility] Comment on above: Result Comment: These results are not intended for use in patients <18 years of age. eGFR results are calculated without a race factor using the 2020 CKD-EPI equation. Careful clinical correlation is recommended, particularly when comparing to results calculated using previous equations. The CKD-EPI equation is less accurate in patients with extremes of muscle mass, extra-renal metabolism of creatine, excessive creatine ingestion, or following therapy that affects renal tubular secretion. Performed By: #### C REG #### [facility] [address] [place] [address] Estimator Binding: Krissy Sweet MD NON OB TRANSVAGINALon US NON OB TRANSVAGINAL UTERUS: Anteverted uterus with a heterogeneous echotexture ENDO: measures 3.5 mm RT. OVARY: Not visualized LT. OVARY: Not visualized Questionable adenomyosis of the uterus? FIBROIDS: #1 Mid posterior uterus measures 2.8 x 1.9 x 4.0 cm #2 Mid Right uterus measures 2.0 x 1.7 x 1.8 cm Interpreted by: Augustina Yoo, VICKI - Cinthya Agrawal DO Signed by: Cinthya Cano DO 12/05/23 Final result Normal [facility] Cult,Genitalon 12-03-2023 Cult,Genital Specimen Description .VAGINA Special Requests Site: Genital Culture STREPTOCOCCI, BETA HEMOLYTIC GROUP B LIGHT GROWTH NORMAL URO-GENITAL DENISE NEGATIVE FOR NEISSERIA GONORRHOEAE Report Status FINAL 12/03/2023 [facility] Comment on above: Performed By: #### G EC #### [id number] [place] [address] Estimator Binding: Kenton Marcelino MD [facility] [address] [place] [address] Estimator Binding: Krissy Sweet MD HPV DNA High Riskon 12-03-19 24 HPV Interp [facility] Comment on above: Result Comment: This test amplifies and detects DNA of 14 high-risk HPV types associated with cervical cancer and its precursor lesions (HPV types 16,18, 31, 33, 35, 39, 45, 51, 52, 56, 58, 59, 66, and 68). Sensitivity may be affected by specimen collection methods, stage of infection, and the presence of interfering substances. Results should be interpreted in conjunction with other available laboratory and clinical data. A negative high-risk HPV result does not exclude the possibility of future cytologic HSIL or underlying CIN2-3 or cancer. This test is intended for medical purposes only and is not valid for the evaluation of suspected sexual abuse or for other forensic purposes. Performed By: #### H PVH #### [address] [address] Estimator Binding: Kenton Marcelino MD HPV Type 16 Not detected [facility] Comment on above: Performed By: #### H PVH #### [facility] [employer] [facility] [place] [address] Estimator Binding: Kenton Marcelino MD HPV Type 18 Not detected [facility] Comment on above: Performed By: #### H PVH #### [facility] [employer] [address] [place] [address] Estimator Binding: Kenton Marcelino MD Other High Risk HPV Not detected [place] Comment on above: Performed By: #### H PVH #### [address] [address] Estimator Binding: Kenton Marcelino MD HPV DNA High Riskon 11-30-19 HPV Sample .THIN PREP Normal [facility] Comment on above: Performed By: #### H PVH #### [address] [place] [address] Estimator Binding: Kenton Marcelino MD Source CERVICAL MATERIAL Normal [facility] Comment on above: Performed By: #### H PVH #### [address] [address] Estimator Binding: Kenton Marcelino MD Vaginitis DNA Probeon 2023 Olena Negative [facility] Comment on above: Result Comment: for Olena sp. Method of testing is a DNA probe intended for detection and identification of Olena species, Gardnerella vaginalis, and Trichomonas vaginalis nucleic acid in vaginal fluid specimens from patients with symptoms of vaginitis/vaginosis. Performed By: #### V AGP #### [address] [address] Estimator Binding: Kenton Marcelino MD [facility] [address] [place] [address] [place] [address] Estimator Binding: Krissy Sweet MD Gardnerella Negative [facility] Comment on above: Result Comment: for Gardnerella vaginalis Performed By: #### V AGP #### [address] [address] Estimator Binding: Kenton Marcelino MD [facility] [address] [place] [address] [place] [address] Estimator Binding: Krissy Sweet MD Trichomonas Negative [facility] Comment on above: Result Comment: for Trichomonas Vaginalis Performed By: #### V AGP #### [address] [address] Estimator Binding: Kenton Marcelino MD [facility] [address] [place] [address] Estimator Binding: Krissy Sweet MD Cytology Reporton 11-29-2023 Cytology report Cyto stain.thin prep Doc (Cvx/Vag) (NOTE) Path Number: [id number] DIAGNOSIS Imaged ThinPrep Pap - Cervical (1 monolayer slide): Specimen Adequacy: Satisfactory for evaluation. - Endocervical/transform ation zone component present. Descriptive Diagnosis: Negative for intraepithelial lesion or malignancy. Cytotech Screener: EY Electronically Signed Out Abida CASTAÑEDA(ASCP) ey/12/12/2023 Procedure/Addendum HPV Procedure Report Date Ordered: 11/30/2023 Status: Signed Out Date Complete: 12/03/2023 By: System Interface Date Reported: 12/03/2023 Sample: HPV Type 16 Result: Not Detected Ref Range: (Not Detected) Sample: HPV Type 18 Result: Not Detected Ref Range: (Not Detected) Sample: Other High Risk HPV Result: Not Detected Ref Range: (Not Detected) Sample: HPV Interp Result: Ref Range: (Not Detected) This test amplifies and detects DNA of 14 high-risk HPV types associated with cervical cancer and its precursor lesions (HPV types 16,18, 31, 33, 35, 39, 45, 51, 52, 56, 58, 59, 66, and 68). Sensitivity may be affected by specimen collection methods, stage of infection, and the presence of interfering substances. Results should be interpreted in conjunction with other available laboratory and clinical data. A negative high-risk HPV result does not exclude the possibility of future cytologic HSIL or underlying CIN2-3 or cancer. This test is intended for medical purposes only and is not valid for the evaluation of suspected sexual abuse or for other forensic purposes. Performed at [facility] [address] [place] [address] ([phone] Source of Specimen: A: Imaged ThinPrep Pap - Cervical (1 monolayer slide) HPV Reflex?............... .......HPV Regardless Clinical History Postmenopausal Z12.4 Encounter for screening for malignant neoplasm of cervix Processing Lab: [facility] [address] [place] [address] Interpretation performed at [address] [address] This Pap Test has been evaluated with the assistance of the [employer] Pap Test Imaging System. The Pap smear is a screening test primarily for squamous epithelial lesions, which is subject to both false negative and false positive results. Your patient should be reminded to consult you immediately if she experiences any suspicious signs or symptoms, regardless of her Pap smear result. GYNECOLOGIC CYTOLOGY REPORT Patient Name: MICHELLE PRADO [facility] Rec: [id number] [facility] ANATOMIC PATHOLOGY [address] [place] [address]. [place], [place] [address] Normal [facility] Vaginitis DNA Probeon 2023 Source .VAGINAL SWAB Normal [facility] Comment on above: Performed By: #### V AGP #### [address] [address] Estimator Binding: Kenton Marcelino MD [facility] [address] [place] [address] [place], [place] [id number] Estimator Binding: Krissy Sweet MD [place] 10-30-2023 Screens [id number] 02 [id number]. [id number] Normal [facility] Urology Office/Clinic Noteon 10-26-2023 Urology Office/Clinic Note Chief Complaint New Pt HPI Staff New pt. Last seen in our office by RWR 09/29/13 due to Urgency & Frequency Started on Toviaz at that time. HX of Cysto/UD 2002 & 2014 A1C 08/29/22- 5.8 CMP 08/29/22 *BUN 15.0 Crea 0.89 eGFR >60 Dysuria: no Incomplete bladder emptying: Pt. states she has to sit for a while to fully empty, Pt. states usually at night Hematuria: no Frequency: every hour Urgency: occasionally Nocturia: at least 2x's Stream: good stream Post void dripping: no Wearing pads/ Depends: no Urge incontinence: no Stress incontinence: not often Incontinence without Sensory Awareness: no Abdominal pain: Pt. states having abd pain Flank pain: Pt. states having back History of Present Illness staff HPI reviewed and agree. Review of Systems PHQ Score Initial Depression Screen Score: 0 SCORE no fever, chills, malaise, myalgia. no rash/lesions. no chest pain, palpitations, or SOB. no abdominal pain, nausea, vomiting. no unilateral calf swelling, redness, pain Physical Exam Vitals & Measurements HR: 61(Peripheral) RR: 20 BP: 162/97 HT: 65 in HT: 165 cm WT: 96 kg WT: 211.2 lb BMI: 35.26 General: nontoxic, NAD Mouth: moist mucosa Lungs: normal respiratory effort Cardio: regular rate, good distal perfusion Abdomen: nondistended, no suprapubic distention or tenderness, no CVA tenderness Neurologic: Grossly normal Skin: No rashes or suspicious lesions Assessment/Plan Micehlle is a 63 yo female new pt, prior RWR pt. 08/29/22 - A1c 5.8. BUN 15. Cr 0.89. eGFR >60. 1. Vaginal odor (N89.8: Other specified noninflammatory disorders of vagina) Reports ongoing odor for a while. No discharge or bleeding. No burning or itching. Hx of yeast infections but feels current sxs are different. [place] sxs may be related to UTI. However denies urgency, change in frequency, dysuria, gross hematuria. UA today negative for blood and infection. Recommended gynecologic swab and to f/u with WORKER'S COMPENSATION CLAIMS EXAMINER to further discuss sxs. -Submit WORKER'S COMPENSATION CLAIMS EXAMINER cx. Will call pt with results. -pt to call and schedule WORKER'S COMPENSATION CLAIMS EXAMINER appt. 2. Abdominal pain (R10.9: Unspecified abdominal pain) Reports mild diffuse lower abdominal pain. 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 No recent changes. Mild. Denies constipation. Denies hx of kidney stones. No recent UTIs. 3. Urinary frequency (R35.0: Frequency of micturition) BBS 10-12. Voiding every hour, ongoing for years. Not very bothersome. Related to large fluid intake. 4. History of recurrent UTI (urinary tract infection) (Z87.440: Personal history of urinary (tract) infections) Reports she used to get recurrent infections. Struggled with these when she was a child. No UTIs for many years now. 5. Other urethral stricture, female (N35.82: Other urethral stricture, female) S/p Cysto/UD 09/23/13 by RWR - Bladder trabeculation and smaller bladder capacity. No gross evidence of IC. No tumors or stones. Good stream. Has to sit for a while to empty completely, typically at night. No complaints. 6. Former smoker (Z87.891: Personal history of nicotine dependence) Age 20-40, 1 PPD. Risk factor for urothelial ca. Follow-up With When Contact Information AURA CROUCH, RAMONA Schneider, URL [address] [place] [address] [phone] Additional Instructions: f/u with WORKER'S COMPENSATION CLAIMS EXAMINER Patient Education Abdominal Pain, Adult Documentation recorded by the jorge Beltran accurately reflects the services(s) I performed and decisions made by me. Authenticated by Ramona Chavarria PA-C on 10/26/2023 10:05:56. ISanna, personally scribed for Ramona Chavarria PA-C on 10/23/2023 16:24:48. . Problem List/Past Medical History Ongoing Abdominal pain Former smoker History of recurrent UTI (urinary tract infection) Hyperlipidemia Hypertension Other urethral stricture, female Urinary frequency Vaginal odor Historical No qualifying data Procedure/Surgical History Cystourethroscopy with dilation of urethral stricture (09/23/2013), Cystourethroscopy with dilation of urethral stricture (04/29/2003), Tubal ligation. Medications aspirin 81 mg oral capsule, 81 mg= 1 cap(s), Oral, q24hr Iron Chews, Oral, Daily meloxicam 15 mg Tab, 15 mg= 1 tab(s) Metoprolol tartrate 50 mg Tab, 50 mg= 1 tab(s) Pantoprazole [address] Tab, 40 mg= 1 tab(s) simvastatin 20 mg Tab, 20 mg= 1 tab(s) Allergies No Known Medication Allergies Social History Alcohol - Low Risk, 10/23/2023 Tobacco Former smoker, quit more than 30 days ago Tobacco Use:., 10/23/2023 Family History Arthritis: Grandparent. Hyperlipidemia: Mother. Hypertension: Mother. Leukemia: Grandparent. Migraine: Mother. Primary malignant neoplasm of lung: Father. Lab Results Ambulatory Point of Care Results Bilirubin Urine Dipstick: Negative (10/23/23 16:12:00) Blood Urine Dipstick: Negative (10/23/23 16:12:00) Glucose Urine Dipstick: Negative ( (more content not included)... Normal [facility] Comment on above: Result Comment: Elec tronically Signed By: RAMONA CHAVARRIA PA-C\.br\Date and Time Signed: 10/26/23 10:18 EDT\.br\Electronically Co-Signed By: Sanna Beltran\.br\Date and Time Co-Signed: 10/23/23 16:26 EDT Patient Educationon 10-23-19 Patient Education Gastroenterology Abdominal Pain, Adult Pain in the abdomen (abdominal pain) can be caused by many things. Often, abdominal pain is not serious and it gets better with no treatment or by being treated at home. However, sometimes abdominal pain is serious. Your health care provider will ask questions about your medical history and do a physical exam to try to determine the cause of your abdominal pain. Follow these instructions at home: Medicines ? Take kpyg-isf-kgryvpy and prescription medicines only as told by your health care provider. ? Do not take a laxative unless told by your health care provider. General instructions ? Watch your condition for any changes. ? Drink enough fluid to keep your urine pale yellow. ? Keep all follow-up visits as told by your health care provider. This is important. Contact a health care provider if: ? Your abdominal pain changes or gets worse. ? You are not hungry or you lose weight without trying. ? You are constipated or have diarrhea for more than 2?3 days. ? You have pain when you urinate or have a bowel movement. ? Your abdominal pain wakes you up at night. ? Your pain gets worse with meals, after eating, or with certain foods. ? You are vomiting and cannot keep anything down. ? You have a fever. ? You have blood in your urine. Get help right away if: ? Your pain does not go away as soon as your health care provider told you to expect. ? You cannot stop vomiting. ? Your pain is only in areas of the abdomen, such as the right side or the left lower portion of the abdomen. Pain on the right side could be caused by appendicitis. ? You have bloody or black stools, or stools that look like tar. ? You have severe pain, cramping, or bloating in your abdomen. ? You have signs of dehydration, such as: ? Dark urine, very little urine, or no urine. ? Cracked lips. ? Dry mouth. ? Sunken eyes. ? Sleepiness. ? Weakness. ? You have trouble breathing or chest pain. Summary ? Often, abdominal pain is not serious and it gets better with no treatment or by being treated at home. However, sometimes abdominal pain is serious. ? Watch your condition for any changes. ? Take zkbk-new-ljrmhhu and prescription medicines only as told by your health care provider. ? Contact a health care provider if your abdominal pain changes or gets worse. ? Get help right away if you have severe pain, cramping, or bloating in your abdomen. This information is not intended to replace advice given to you by your health care provider. Make sure you discuss any questions you have with your health care provider. Document Revised: 07/23/2020 Document Reviewed: 10/13/2019 [employer] Patient Education ? 2022 [employer]. [facility] MG MAMM SCREEN 3D SHELIA CADon 10-17-2022 MG MAMM SCREEN 3D SHELIA CAD Patient: MICHELLE PRADO Exam Date: 10/17/2022 : 1960 Gender:F Ordering : DR MAGGIE HERR . Admission #: [id number] Family : Order #: [id number] CLICK HERE TO VIEW EXAM RADIOLOGY REPORT [...] unknown cancer at age 80. LOCATION: [facility] BREAST COMPOSITION: Heterogeneously dense,which may obscure small [...] MD on 10/18/2022 at 09:12 Normal [facility] OCC BLD IMMUNO SCREENon 04-2 OCCULT BLOOD Negative Normal NEGATIVE [facility] Comment on above: Performed By: #### O BSCRN #### [facility] [address] [place] [address] Dr. Estrella Curtis INSULINon 08-31-2022 Insulin 4.5 uIU/mL Normal 2.6-24.9 [facility] Comment on above: Performed By: #### I NSULIN #### [facility] [address] [place] [address] Dr. Estrella Curtis CBC AUTO DIFFon 08-29-2022 BASO # 0.0 103/ul Normal 0.0-0.1 [facility] Comment on above: Performed By: #### C BC #### [facility] [address] [place] [address] Dr. Estrella Curtis Basophils/100 WBC (Bld) 0.4 % Normal 0.2-2.0 [facility] Comment on above: Performed By: #### C BC #### [facility] [address] [place] [address] Dr. Estrella Curtis EO # 0.1 103/ul Normal 0.0-0.7 [facility] Comment on above: Performed By: #### C BC #### [facility] [address] [place] [address] Dr. Estrella Curtis Eosinophils/100 WBC (Bld) 2.8 % Normal 0.9-7.0 [facility] Comment on above: Performed By: #### C BC #### [facility] [address] [place] [address] Dr. Estrella Curtis Erythrocyte distribution width (RBC) [Ratio] 13.3 % Normal 11.0-15.0 [facility] Comment on above: Performed By: #### C BC #### [facility] [address] [address] [address] Estrella Curtis Hematocrit (Bld) [Volume fraction] 37.4 % Normal 36.0-48.0 [facility] Comment on above: Performed By: #### C BC #### [facility] [address] [place] [address] Dr. Estrella Curtis Hemoglobin (Bld) [Mass/Vol] 12.4 g/dL Normal 12.0-16.0 [facility] Comment on above: Performed By: #### C BC #### [facility] [address] [place] [address] Dr. Estrella Curtis IG # 0.01 10e3/ul Normal 0.00-0.03 [facility] Comment on above: Performed By: #### C BC #### [facility] [address] [place] [address] Dr. Estrella Curtis IG % 0.2 % Normal 0.0-0.5 [facility] Comment on above: Performed By: #### C BC #### [facility] [address] [place] [address] Dr. Estrella Curtis LYMPH # 1.6 103/ul Normal 1.2-3.8 [facility] Comment on above: Performed By: #### C BC #### [facility] [address] [place] [address] Dr. Estrella Curtis Lymphocytes/100 WBC (Bld) 34.3 % Normal 20.5-60.0 [facility] Comment on above: Performed By: #### C BC #### [facility] [address] [place] [address] Dr. Estrella Curtis MANUAL DIFF REQ NO Normal [facility] Comment on above: Performed By: #### C BC #### [facility] [address] [place] [address] Dr. Estrella Curtis MCH (RBC) [Entitic mass] 29.7 pg Normal 26.7-34.0 [facility] Comment on above: Performed By: #### C BC #### [facility] [address] [address] [address] Estrella Curtis MCHC (RBC) [Mass/Vol] 33.2 g/dL Normal 29.9-35.2 [facility] Comment on above: Performed By: #### C BC #### [facility] [address] [address] [address] Estrella Curtis MCV (RBC) [Entitic vol] 89.5 fL Normal 81.0-99.0 [facility] Comment on above: Performed By: #### C BC #### [facility] [address] [place] [address] Dr. Estrella Curtis MONO # 0.4 103/ul Normal 0.3-0.8 [facility] Comment on above: Performed By: #### C BC #### [facility] [address] [place] [address] Dr. Estrella Curtis Monocytes/100 WBC (Bld) 9.2 % Normal 1.7-12.0 [facility] Comment on above: Performed By: #### C BC #### [facility] [address] [place] [address] Dr. Estrella Curtis NEUT # 2.4 103/ul Normal 1.4-6.5 [facility] Comment on above: Performed By: #### C BC #### [facility] [address] [place] [address] Dr. Estrella Curtis Neutrophils/100 WBC (Bld) 53.1 % Normal 43.0-75.[address] [facility] Comment on above: Performed By: #### C BC #### [facility] [address] [place] [address] Dr. Estrella Curtis Platelet mean volume (Bld) [Entitic vol] 10.1 fL Normal 9.5-13.[address] [facility] Comment on above: Performed By: #### C BC #### [facility] [address] [place] [address] Dr. Estrella Curtis PLT 276 103/ul Normal 150-[address] [facility] Comment on above: Performed By: #### C BC #### [facility] [address] [address] [address] Estrella Curtis RBC 4.18 106/ul Critically low 4.20-5.40 [facility] Comment on above: Performed By: #### C BC #### [facility] [address] [address] [address] Estrella Curtis WBC 4.6 103/ul Normal 4.0-11.0 [facility] Comment on above: Performed By: #### C BC #### [facility] [address] [address] [address] Estrella Curtis FREE THYROXINE INDEX T7on FTI 3.14 Normal 1.30-4.50 [facility] Comment on above: Performed By: #### T SH, T7, LIPID, CMP ####[facility] [id number] [id number]. Estrella Curtis T3U 33.0 % Normal 30.0-39.[address] [facility] Comment on above: Performed By: #### T SH, T7, LIPID, CMP ####[facility] [id number] [id number]. Estrella Curtis T4 [Mass/Vol] 9.50 ug/dL Normal 4.80-13.90 [facility] Comment on above: Performed By: #### T SH, T7, LIPID, CMP ####[facility] [id number] [id number]. Estrella Curtis GLYCOHEMOGLOBIN A1Con 2022 ADA RECOMMENDATION SEE BELOW Normal [facility] [place] [facility] Comment on above: Result Comment: ADA RECOMMENDED LIMIT 4.0 - 6.0 ADA THERAPEUTIC TARGET < 7.0 ACTION SUGGESTED > 7.0 Performed By: #### A 1C #### [facility] [address] [address] [address] Estrella Curtis Glucose [Mass/Vol] 120 mg/dL Normal [facility] Comment on above: Performed By: #### A 1C #### [facility] [address] [address] [address] Estrella Curtis HbA1c (Bld) [Mass fraction] 5.8 % Normal 4.5-6.2 [facility] Comment on above: Performed By: #### A 1C #### [facility] [address] [address] [address] Estrella Curtis IRONon 08-29-2022 Iron [Mass/Vol] 82.0 ug/dL Normal 50.0-170.0 [facility] Comment on above: Performed By: #### I MONIKA #### [facility] [address] [address] [address] Estrella Curtis LIPID PROFILEon 08-29-2022 CHOL-HDL RATIO NORM SEE BELOW Normal [facility] Comment on above: Result Comment: 3.3 - 4.4 LOW RISK 4.4 - 7.1 AVERAGE RISK 7.1 - 11.0 MODERATE RISK >11.0 HIGH RISK Performed By: #### T SH, T7, LIPID, CMP #### [facility] [address] [address] [address] Estrella Curtis Cholesterol [Mass/Vol] 203 mg/dL Critically high <=200 [facility] Comment on above: Performed By: #### T SH, T7, LIPID, CMP #### [facility] [address] [address] [address] Estrella Curtis Cholesterol in HDL [Mass/Vol] 62 mg/dL Critically high 40-60 [facility] Comment on above: Performed By: #### T SH, T7, LIPID, CMP #### [facility] [address] [address] [address] Estrella Curtis Cholesterol in LDL [Mass/Vol] 122.2 mg/dL Normal [facility] Comment on above: Performed By: #### T SH, T7, LIPID, CMP #### [facility] [address] [address] [address] Estrella Curtis Cholesterol.total/Ch olesterol in HDL [Mass ratio] 3.3 {ratio} Normal [facility] Comment on above: Performed By: #### T SH, T7, LIPID, CMP #### [facility] [address] [address] [address] Estrella Curtis HDL NORMAL > or = 60 mg/dl - LO W CARDIOVASCULAR RISK <40 mg/dl - HIGH CARDIOVASCULAR RISK Normal [facility] Comment on above: Performed By: #### T SH, T7, LIPID, CMP #### [facility] [address] [address] [address] Estrella Curtis LDL CALC NORMAL SEE BELOW Normal [facility] Comment on above: Result Comment: <100 mg/dl OPTIMAL 100 - 129 mg/dl NEAR OR ABOVE OPTIMAL 130 - 159 mg/dl BORDERLINE HIGH 160 - 189 mg/dl HIGH >190 mg/dl VERY HIGH Performed By: #### T SH, T7, LIPID, CMP #### [facility] [address] [address] [address] Estrella Curtis Triglyceride [Mass/Vol] 94 mg/dL Normal <=150 [facility] Comment on above: Performed By: #### T SH, T7, LIPID, CMP #### [facility] [address] [address] [address] Estrella Curtis VLDL CALC 18.8 mg/dL Normal [facility] Comment on above: Performed By: #### T SH, T7, LIPID, CMP #### [facility] [address] [place] [address] Dr. Estrella Curtis PROF 14(COMP METB)on 023 Albumin [Mass/Vol] 4.3 g/dL Normal 3.4-5.0 [facility] [place] [facility] Comment on above: Performed By: #### T SH, T7, LIPID, CMP #### [facility] [address] [address] [address] Estrella Curtis Albumin/Globulin [Mass ratio] 1.3 {ratio} Normal [facility] Comment on above: Performed By: #### T SH, T7, LIPID, CMP #### [facility] [address] [address] [address] Estrella Curtis ALP [Catalytic activity/Vol] 84 U/L Normal 46-116 [facility] Comment on above: Performed By: #### T SH, T7, LIPID, CMP #### [facility] [address] [address] [address] Estrella Curtis ALT [Catalytic activity/Vol] 48 U/L Normal 14-59 [facility] Comment on above: Performed By: #### T SH, T7, LIPID, CMP #### [facility] [address] [place] [address] Dr. Estrella Curtis Anion gap [Moles/Vol] 12.0 mmol/L Normal [facility] Comment on above: Performed By: #### T SH, T7, LIPID, CMP #### [facility] [address] [place] [address] Dr. Estrella Curtis AST [Catalytic activity/Vol] 33 U/L Normal 15-37 [facility] Comment on above: Performed By: #### T SH, T7, LIPID, CMP #### [facility] [address] [place] [address] Dr. Estrella Curtis Bilirubin [Mass/Vol] 0.5 mg/dL Normal 0.2-1.0 [facility] Comment on above: Performed By: #### T SH, T7, LIPID, CMP #### [facility] [address] [place] [address] Dr. Estrella Curtis Calcium [Mass/Vol] 9.3 mg/dL Normal 8.5-10.1 [facility] [place] [facility] Comment on above: Performed By: #### T SH, T7, LIPID, CMP #### [facility] [address] [place] [address] Dr. Estrella Curtis Chloride [Moles/Vol] 104 mmol/L Normal 98-107 [facility] Comment on above: Performed By: #### T SH, T7, LIPID, CMP #### [facility] [address] [place] [address] Dr. Estrella Curtis CO2 [Moles/Vol] 29.5 mmol/L Normal 21.0-32.[address] [facility] Comment on above: Performed By: #### T SH, T7, LIPID, CMP #### [facility] [address] [place] [address] Dr. Estrella Curtis Creatinine [Mass/Vol] 0.89 mg/dL Normal 0.55-1.02 [facility] Comment on above: Performed By: #### T SH, T7, LIPID, CMP #### [facility] [address] [address] [address] Estrella Curtis EGFR-AF TONGAN >60 Normal >=[address] [facility] Comment on above: Performed By: #### T SH, T7, LIPID, CMP #### [facility] [address] [address] [address] Estrella Curtis EGFR-NON AF TONGAN >60 Normal >=[address] [facility] Comment on above: Performed By: #### T SH, T7, LIPID, CMP #### [facility] [address] [address] [address] Estrella Curtis Globulin (S) [Mass/Vol] 3.2 g/dL Normal [facility] Comment on above: Performed By: #### T SH, T7, LIPID, CMP #### [facility] [address] [address] [address] Estrella Curtis Glucose [Mass/Vol] 97 mg/dL Normal 74-106 [facility] Comment on above: Performed By: #### T SH, T7, LIPID, CMP #### [facility] [address] [address] [address] Estrella Curtis Potassium [Moles/Vol] 4.5 mmol/L Normal 3.5-5.[address] [facility] Comment on above: Performed By: #### T SH, T7, LIPID, CMP #### [facility] [address] [address] [address] Estrella Curtis Protein [Mass/Vol] 7.5 g/dL Normal 6.4-8.2 [facility] Comment on above: Performed By: #### T SH, T7, LIPID, CMP #### [facility] [address] [address] [address] Estrella Curtis Sodium [Moles/Vol] 141 mmol/L Normal 136-145 [facility] Comment on above: Performed By: #### T SH, T7, LIPID, CMP #### [facility] [address] [address] [address] Estrella Curtis Urea nitrogen [Mass/Vol] 15.0 mg/dL Normal 7.0-18.0 [facility] Comment on above: Performed By: #### T SH, T7, LIPID, CMP #### [facility] [address] [place], [place] [address] Dr. Estrella Curtis Urea nitrogen/Creatinine [Mass ratio] 16.9 mg/mg Normal [facility] Comment on above: Performed By: #### T SH, T7, LIPID, CMP #### [facility] [address] [place], [place] [address] Dr. Estrella Curtis TSHon 08-29-2022 TSH 5.036 uIU/mL Critically high 0.358-3.740 [facility] [place] [facility] Comment on above: Performed By: #### T SH, T7, LIPID, CMP ####[facility] [id number] [place], [place] [address]QoDr. Estrella Curtis Covid-19 PCR (CVDTBH)on SARS-CoV-2 (COVID-19) RNA FRANCISCO J+probe Ql (Unsp spec) Not detected Normal NOT DETECTED [facility] Comment on above: Result Comment: When diagnostic [...] for this test is supported by the [place] of Health and Human Service's declaration that [...] be used). Performed By: #### C VDTBH ####[facility] [id number] [place], [place] [address]PcDr. Estrella Curtis INFLUENZA A AND B AGon 05-25 INFLUBNEGH SEE BELOW Normal [facility] Comment on above: Result Comment: Nega tive for Flu B protein antigen. Infection due to Flu B cannot be ruled out. Flu B antigen in the sample may be below the detection limit of the test. Performed By: #### I NFLUAB #### [facility] [address] [place] [address] Dr. Estrella Curtis INFLUENZA A AG Positive Abnormal NEGATIVE SEE COMMENT [facility] Comment on above: Performed By: #### I NFLUAB #### [facility] [address] [address] [address] Estrella Curtis INFLUENZA B AG Negative Normal NEGATIVE SEE COMMENT [facility] Comment on above: Performed By: #### I NFLUAB #### [facility] [address] [place] [address] Dr. Estrella Curtis INFLUPOSH SEE BELOW Normal [facility] Comment on above: Result Comment: NOTE : Live attenuated influenzae vaccine viruses can cause a positive result for a rapid influenza diagnostic test if administered up to 7 days prior to rapid testing. Performed By: #### I NFLUAB #### [facility] [address] [place] [address] Dr. Estrella Curtis INTERNAL CONTROLS Within Normal Limits Normal Wi thin Normal Limits [facility] Comment on above: Performed By: #### I NFLUAB #### [facility] [address] [place] [address] Dr. Estrella Curtis Vital Signs Date Time Vital Sign Value Performing Clinician Ishaan sharma 10-23-2023 15:18-0400 Blood Pressure Location RAMONA CHAVARRIA [facility] 10-23-2023 15:18-0400 Diastolic blood pressure 97 mm[Hg] RAMONA CHAVARRIA [facility] 10-23-2023 15:18-0400 Heart rate 61 /min RAMONA CHAVARRIA [facility] 10-23-2023 15:18-0400 Respiratory rate 20 /min RAMONA CHAVARRIA [facility] 10-23-2023 15:18-0400 Systolic blood pressure 162 mm[Hg] RAMONA CHAVARRIA [facility] Encounters Encounter Date Encounter Type Care Provider Facility Start: 12-05-2023 End: 12-07-2023 ambulatory [facility] Start: 11-29-2023 End: 11-29-2023 ambulatory AUGUSTINA [facility] Start: 11-29-2023 End: 11-29-2023 ambulatory MAGGIE HERR [facility] Start: 10-26-2023 ambulatory RAMONA CHAVARRIA Facility :[facility] Start: 10-23-2023 End: 10-24-2023 ambulatory RAMONA CHAVARRIA Facility:[facility] Start: 10-23-2023 End: 10-24-2023 ambulatory RAMONA CHAVARRIA Facility:[facility] Start: 10-23-2023 End: 10-23-2023 Lab Drop off RAMONA CHAVARRIA [facility] Start: 10-23-2023 End: 10-23-2023 Patient encounter procedure RAMONA CHAVARRIA [facility] Start: 09-06-2023 End: 09-06-2023 ambulatory STEVE DUARTE Not Available Start: 08-30-2023 End: 08-30-2023 ambulatory STEVE DUARTE Not Available Start: 08-23-2023 End: 08-23-2023 ambulatory STEVE DUARTE Not Available Start: 06-26-2023 End: 06-26-2023 ambulatory STEVE DUARTE Not Available Start: 10-17-2022 End: 10-18-[address] MAGGIE HERR . Facility: Start: 10-12-2022 Encounter for genera l adult medical examination without abnormal findings DR MAGGIE HERR . [facility] Start: 10-06-2022 End: 10-06-[address] MAGGIE HERR . Facility:[facility] Start: 10-06-2022 End: 10-06-2022 Encounter for general adult medical examination without abnormal findings DR MAGGIE HERR . Facility:[facility] Start: 08-29-2022 End: 08-30-[address] MAGGIE HERR . Facility:[facility] Start: 05-25-2022 End: 05-25-[address] MAGGIE HERR . Facility:[facility] Start: 05-17-2022 End: 05-18-[address] MAGGIE HERR . Facility:[facility] Start: 11-30-2021 End: 12-01-[address] MAGGIE HERR . Facility:[facility] Procedures Date Procedure Procedure Detail Performing Clinician Start: 09-23-2013 Cystourethroscopy wi th dilation of urethral stricture RAMONA CHAVARRIA Start: 04-29-2003 Cystourethroscopy wi th dilation of urethral stricture RAMONA CHAVARRIA Ligation of fallopian tube J KEYSHA CHAVARRIA Payers Date Payer Category Payer Unknown [id number] 2.16.84 [id number] 1960 Unknown [id number] 2.16.84 [id number] 1960 Unknown [id number] 2.16.84 [id number] 1960 Unknown [id number] 2.16.84 [id number] 1960 Unknown [id number] 2.16.84 [id number] 1960 Unknown [id number] 2.16.84 0.1.450102.3.579.2.1259 1960 Unknown [id number] 2.16.84 0.1.872809.3.579.2.1259 1960 Unknown [id number] 2.16.84 0.1.018798.3.579.2.1259 1960 Unknown [id number] 2.16.84 0.1.435122.3.579.2.1259 1960 Unknown [id number] 2.16.84 0.1.621072.3.579.2.1259 1960 Unknown [id number] 2.16.84 0.1.657399.3.579.2.1259 1960 Unknown [id number] 2.16.8 40.1.404289.3.579.2.727 1960 Unknown [id number] 2.16.8 40.1.337517.3.579.2.727 1960 Unknown [id number] 2.16. 840.1.473566.3.579.2.175 1960 Unknown [id number] 2.16.8 40.1.987123.3.579.2.173 1960 Unknown [id number] 2.16.8 40.1.328458.3.579.2.173 1960 Unknown [id number] 2.16.8 [id number] 1959 Private Health Insurance [id number] 1959 Self-pay [id number] Unknown [id number] 2.16.84 [id number] Social History Date Type Detail Facility Start: 10-23-2023 Tobacco smoking status Ex-smoker (fi nding) [facility] Sex Assigned At Female [facility] Functional Status Date Assessment Result Facility 10-23-2023 Functional Status N/A [facility] Clinical Note 10-26-2023 Note Date & Type Note Facility 10-26-2023 Note Microbiology PROCEDURE: Gynecological Culture [R1] SOURCE: Vag BODY SITE: COLLECTED DATE/TIME: 10/23/2023 16:27 EDT RECEIVED DATE/TIME: 10/24/2023 15:05 EDT START DATE/TIME: 10/24/2023 15:05 EDT FREE TEXT SOURCE: RAMONA CHAVARRIA PA-C, PA-C, RAMONA Schneider FINAL REPORTS Final Report [] Verified Date/Time: 10/26/2023 11:20 EDT 1+ Escherichia coli isolated. 2+ Streptococcus agalactiae (Group B) Presumptive isolated. Penicillin is the drug of choice for Beta Hemolytic Streptococci Isolates. Routine susceptibility testing on Beta Hemolytic Streptococcus isolates is no longer performed. Susceptibilities will continue to be performed on Isolates from sterile body fluids and serious wound infections. SUSCEPTIBILITY RESULTS LEGEND: S=Susceptible, N/R=Not Reported, Blank=Data not available, or drug not advisable or tested, I=Intermediate, ESBL=Extended spectrum beta-lactamase, R=Resistant, TFG=Thymidine-dependent strain, MICHELLE=Beta-lactamase positive, GLENNY=mcg/m;(mg/L), S*=Predicted susceptible interp, R*=Predicted resistant interp EC Antibiotic GLENNY Dilutn GLENNY Interp Amikacin <=16 S Ampicillin <=8 S Ampicillin/ <=8/4 S Sulbactam Aztreonam <=4 S Cefazolin <=2 S Cefepime <=2 S Cefoxitin <=8 S Ceftazidime <=1 S Ceftazidime/ <=8 S Avibactam Ceftriaxone <=1 S Ciprofloxacin <=1 S Ertapenem <=0.5 S Gentamicin <=4 S Levofloxacin <=2 S Meropenem <=1 S Piperacillin/ <=16 S Tazobactam Tetracycline <=4 S Tigecycline <=2 S Tobramycin <=4 S Trimethoprim/ <=2/38 S Sulfa Performing Locations R1: This test was performed at: [facility], [address] [place] [address], [id number] , [place], [facility] Comment on above: Performed By: #### 1 [id number] #### [facility] [address] [place] [id number] Hospital Discharge instructions 10-23-2023 Note Date & Type Note Facility 10-23-2023 Hospital Discharg e instructions Patient Education 10/23/2023 16:23:28 Abdominal Pain, Adult Abdominal Pain, Adult Pain in the abdomen (abdominal pain) can be caused by many things. Often, abdominal pain is not serious and it gets better with no treatment or by being treated at home. However, sometimes abdominal pain is serious. Your health care provider will ask questions about your medical history and do a physical exam to try to determine the cause of your abdominal pain. Follow these instructions at home: Medicines Take vcvv-uht-ahrukuy and prescription medicines only as told by your health care provider. Do not take a laxative unless told by your health care provider. General instructions Watch your condition for any changes. Drink enough fluid to keep your urine pale yellow. Keep all follow-up visits as told by your health care provider. This is important. Contact a health care provider if: Your abdominal pain changes or gets worse. You are not hungry or you lose weight without trying. You are constipated or have diarrhea for more than 2 3 days. You have pain when you urinate or have a bowel movement. Your abdominal pain wakes you up at night. Your pain gets worse with meals, after eating, or with certain foods. You are vomiting and cannot keep anything down. You have a fever. You have blood in your urine. Get help right away if: Your pain does not go away as soon as your health care provider told you to expect. You cannot stop vomiting. Your pain is only in areas of the abdomen, such as the right side or the left lower portion of the abdomen. Pain on the right side could be caused by appendicitis. You have bloody or black stools, or stools that look like tar. You have severe pain, cramping, or bloating in your abdomen. You have signs of dehydration, such as: ?Dark urine, very little urine, or no urine. ?Cracked lips. ?Dry mouth. ?Sunken eyes. ?Sleepiness. ?Weakness. You have trouble breathing or chest pain. Summary Often, abdominal pain is not serious and it gets better with no treatment or by being treated at home. However, sometimes abdominal pain is serious. Watch your condition for any changes. Take yplr-fkv-eohxtbs and prescription medicines only as told by your health care provider. Contact a health care provider if your abdominal pain changes or gets worse. Get help right away if you have severe pain, cramping, or bloating in your abdomen. This information is not intended to replace advice given to you by your health care provider. Make sure you discuss any questions you have with your health care provider. Document Revised: 07/23/2020 Document Reviewed: 10/13/2019 [employer] Patient Education 2022 [employer]. Follow Up Care 10/15/2023 10:31:47 With:RAMONA CHAVARRIA PA-C, URL Address: [address] [facility] [place] [address] [phone] When: Unknown [facility] Evaluation + Plan note 10-23-2023 Note Date & Type Note Facility 10-23-2023 Evaluation + Plan note Diagnostic Tests PendingGynecological Culture 10/23/23 [facility] Clinical Note 12-01-2021 Note Date & Type [...] by: ANOOP FELIX Date: 2021-12-01 11:[address] [facility] Evaluation + Plan note Note Date & Type Note Facility Evaluation + Plan note No data available for this section [facility] Hospital Discharge instructions Note Date & Type Note Facility Hospital Discharge instructions No data available for this section [facility] Progress note Note Date & Type Note Facility Progress note No data available for this section [facility] Summary Purpose Family History No Family History Records FoundNo Family History Records Found No data available for this section No data available for this section No Family History Records FoundNo Family History Records FoundNo Family History Records Found Advance Directives No Advanced Directives Records FoundNo Advanced Directives Records FoundNo Advanced Directives Records FoundNo Advanced Directives Records FoundNo Advanced Directives Records Found Additional Source Comments INFORMATION SOURCE (unrecogn ized section and content) DATE CREATED AUTHOR 10/25/2022 [facility] DATE CREATED AUTHOR AUTHOR'S ORGANIZ ATION 09/08/2023 [facility] DATE CREATED AUTHOR AUTHOR'S ORGANIZ ATION 11/01/2023 [facility] DATE CREATED AUTHOR AUTHOR'S ORGANIZ ATION 12/07/2023 [facility] DATE CREATED AUTHOR AUTHOR'S ORGANIZ ATION 12/13/2023 [facility] Patient Care team informatio n (unrecognized section and content) Personnel Name: Maggie Herr MD Address: Address: [address] [place] [address] Personnel Name: Maggie Herr MD Address: Address: [address] [place] [address] FOR RECORDS PERTAINING TO PATIENTS WHO ARE [...] BE BASED ON THE PRIMARY CLINICAL RECORDS. [facility]. provides no warranty or guarantee of the accuracy or completeness of information in this document.
[2024-01-01 08:36] LABS: Basophils Percent Auto 0.3 % (0.2-2.0); Eosinophils Absolute Auto 0.2 10^3/uL (0.0-0.7); Eosinophils Percent Auto 3.2 % (0.9-7.0); Hematocrit 39.6 % (36.0-48.0); Hemoglobin 13.1 g/dL (12.0-16.0); Immature Granulocytes Abs Auto 0.02 10^3/uL (0.00-0.03); Immature Granulocytes Pct Auto 0.3 % (0.0-0.5); Lymphocytes Absolute Auto 1.4 10^3/uL (1.2-3.8); Lymphocytes Percent Auto 24.1 % (20.5-60.0); Mean Corpuscular HGB Conc 33.1 g/dL (29.9-35.2); Mean Corpuscular Hemoglobin 30.8 pg (26.7-34.0); Mean Corpuscular Volume 93.2 fL (81.0-99.0); Mean Platelet Volume 9.7 fL (9.5-13.5); Monocytes Absolute Auto 0.5 10^3/uL (0.3-0.8); Monocytes Percent Auto 8.6 % (1.7-12.0); Neutrophils Absolute Auto 3.8 10^3/uL (1.4-6.5); Neutrophils Percent Auto 63.5 % (43.0-75.0); Platelet Count 262 10^3/uL (150-450); Red Blood Count 4.25 10^6/uL (4.20-5.40); Red Cell Distribution Width 13.2 % (11.0-15.0); White Blood Count 5.9 10^3/uL (4.0-11.0)
[2024-01-01 08:42] LABS: Estimated Average Glucose 111 mg/dL; Glycohemoglobin A1C 5.5 % (4.5-6.2)
[2024-01-01 09:12] LABS: Alanine Aminotransferase 46 U/L (14-59); Albumin Globulin Ratio 1.1; Albumin Level 3.9 g/dL (3.4-5.0); Alkaline Phosphatase 92 U/L (46-116); Anion Gap 10.6; Aspartate Amino Transferase 30 U/L (15-37); BUN Creatinine Ratio 21.1; Bilirubin Total 0.5 mg/dL (0.2-1.0); Calcium 9.2 mg/dL (8.5-10.1); Carbon Dioxide 28.2 mmol/L (21.0-32.0); Chloride 106 mmol/L (98-107); Chol HDL Ratio 3.1; Cholesterol 182 mg/dL (<=200); Estimated GFR (African America >60 (>=60); Estimated GFR (Non-African Ame 59 (>=60); Globulin 3.4 g/dL; Glucose 90 mg/dL (74-106); HDL Cholesterol 59 mg/dL (40-60); LDL Cholesterol Calculated 101.2 mg/dL; Potassium 4.8 mmol/L (3.5-5.1); Sodium 140 mmol/L (136-145); Thyroid Stimulating Hormone 3.369 uIU/mL (0.358-3.740); Total Protein 7.3 g/dL (6.4-8.2); Triglycerides 109 mg/dL (<=150); VLDL CHOLESTEROL 21.8 mg/dL
[2024-01-01 17:06] LABS: Free T4 1.01 ng/dL (0.76-1.46)
== END 2024-01-01 08:10 | disposition home or self-care (01) ==
LOC: LAB 08:12
PROVIDERS: PCP Family Medicine; Visit Provider Family Medicine
DX: Z00.00 Encounter for general adult medical examination without abnormal findings (principal); E55.9 Vitamin D deficiency, unspecified; R53.83 Other fatigue; Z12.11 Encounter for screening for malignant neoplasm of colon
CPT/HCPCS: 36415; 80053; 80061; 82306; 83036; 84439; 84443; 85025

== ENCOUNTER 2024-04-02 14:45 | Outpatient (REF) | payer OTHER, SELFPAY ==
--- OUTSIDE RECORDS SUMMARY | 2024-04-02 15:05 | XMS_ITS | CCD ---
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 Name Role Phone HARSHILY ., DR SERRANO Consulting Unavailable HOY ., DR SERRANO Primary Care Unavailable HOY ., DR SERRANO Admitting Unavailable HOY ., DR SERRANO Attending Unavailable HAVERHILL, DR KRISSY Gallardo Consulting Unavailable HOY ., [...] Attending Unavailable DUARTE, STEVE T Referring Unavailable DUARTE, STEVE T Attending Unavailable DUARTE, STEVE T Attending Unavailable GERALD STEVE T Attending Unavailable Maggie Herr Primary Care Physician RAMONA CHAVARRIA Attending Unavailable RAMONA CHAVARRIA Attending Unavailable RAMONA CHAVARRIA Admitting Unavailable MAGGIE HERR Primary Care Unavailable AUGUSTINA YOO Referring Unavailabl e MAGGIE HERR Primary Care Unavailable THERESA CEDEÑO Referring Unavailable MAGGIE HERR M Primary Care Unavailable THERESA CEDEÑO Referring Unavailable AUGUSTINA YOO Referring Unavailabl e HOY, MAGGIE M Primary Care Unavailable AUGUSTINA YOO Attending Unavailabl e AUGUSTINA YOO Referring Unavailabl e HOY, MAGGIE M Primary Care Unavailable GALA, THERESA E Referring Unavailable HOY, MAGGIE M Primary Care Unavailable HOY, MAGGIE M Primary Care Unavailable GALA, THERESA E Referring Unavailable HOY, MAGGIE M Primary Care Unavailable AUGUSTINA YOO Attending Unavailwalt e AUGUSTINA YOO Referring Unavailabl e HOY, MAGGIE M Primary Care Unavailable GALA, THERESA E Referring Unavailable GALA, THERESA E Referring Unavailable HOY, MAGGIE M Primary Care Unavailable HOY, MAGGIE M Primary Care Unavailable GALA, THERESA E Referring Unavailable HOY, MAGGIE M Primary Care Unavailable GALA, THERESA E Referring Unavailable FITO HILL Attending Unavailable HOY, MAGGIE M Referring Unavailable Allergies Allergy Classification Reported Allergen(s) Allergy Type Date of Onset Reaction(s) Facility (1 source) No Known Medication Allergies; Translations: [No Known Medication Allergies] Propensity to adverse reactions (disorder) [facility] Repository Medications Current Medications Medication Drug Class(es) [...] Problem Date Documented Date Episodic/Chronic Abdominal pain (8 sources) Abdominal pain; Translations: [Unspecified abdominal pain] Onset: 10-23-2023 Episodic Disorders of lipid metabolism (2 sources) Hyperlipidemia 10-23-2023 Chronic Essential hypertension (2 sources) Hypertensive disorder 10-23-2023 Chronic Genitourinary symptoms and ill-defined conditions (6 sources) Increased frequency of urination; Translations: [Frequency of micturition] Onset: 10-23-2023 Episodic Other bone disease and musculoskeletal deformities (2 sources) Disorder of bone, unspecified; Translations: [Disorder of bone, unspecified] Onset: 03-17-2024 Episodic Other diseases of bladder and urethra (3 sources) Urethral stricture; Translations: [Other urethral stricture, female] Onset: 10-23-2023 Episodic Other female genital disorders (1 source) Noninflammatory disorder of the vagina; Translations: [Other specified noninflammatory disorders of vagina] Onset: 10-23-2023 Episodic Other female genital disorders (2 sources) Vaginal odor 10-23-2023 Episodic Other female genital disorders (1 source) Other specified conditions associated with female genital organs and menstrual cycle; Translations: [Other specified conditions associated with female genital organs and menstrual cycle] Onset: 03-31-2024 Episodic Residual codes; unclassified (1 source) Family [...] COUGH, UNSPECIFIED; Translations: [COUGH, UNSPECIFIED] Onset: 05-29-2022 Unclassified (1 source) Circulatory Problem Onset: 03-31-2024 Past or Other Problems Problem Classification Problem Date Documented Da te Episodic/Chronic Inflammatory diseases of female pelvic organs (1 source) Subacute and chronic vaginitis; Translations: [Subacute and chronic vaginitis] Onset: 11-29-2023 Episodic Other connective tissue disease (4 sources) Pain in right foot; Translations: [PAIN IN RIGHT FOOT] Onset: 11-30-2021 Episodic Other screening for suspected conditions (not mental disorders or infectious disease) (5 sources) Encounter for screening mammogram for malignant neoplasm of breast; Translations: [Encounter for screening for malignant neoplasm of cervix] Onset: 10-17-2022 Episodic Other upper respiratory disease (1 source) Nasal congestion; Translations: [NASAL CONGESTION] Onset: 05-29-2022 Episodic Residual codes; unclassified (1 source) Pain, unspecified; Translations: [Pain, unspecified] Onset: 12-26-2023 Episodic Unclassified (1 source) CONTACT W/AND (SUSP) [...] Hayder Nixon DO 12/11/23 Final result Normal [facility] Creatinine w/GFRon 4 Creatinine [Mass/Vol] 0.9 mg/dL Normal 0.5-0.9 [facility] Comment on above: Performed By: #### C REG #### [facility] [address] [place] [address] Caramel Candy Maker: Krissy Sweet MD GFR/1.73 sq M.predicted among non-blacks MDRD (S/P/Bld) [Vol rate/Area] 72 mL/min/{1.73_m2} Normal >60 [facility] Comment on above: Result Comment: These [...] secretion. Performed By: #### C REG #### [facility] [address] [place] [address] Caramel Candy Maker: Krissy Sweet MD US NON OB TRANSVAGINALon US NON OB TRANSVAGINAL UTERUS: Anteverted uterus with a heterogeneous echotexture ENDO: measures 3.5 mm RT. OVARY: Not visualized LT. OVARY: Not visualized Questionable adenomyosis of the uterus? FIBROIDS: #1 Mid posterior uterus measures 2.8 x 1.9 x 4.0 cm #2 Mid Right uterus measures 2.0 x 1.7 x 1.8 cm Interpreted by: Augustina Yoo, PROGRAM DEVELOPMENT SPECIALIST - CNM Cinthya Cano DO Signed by: Cinthya Cano DO 12/05/23 Final result Normal [facility] Cult,Genitalon 12-03-2023 Cult,Genital Specimen Description .VAGINA Special Requests Site: Genital Culture STREPTOCOCCI, BETA HEMOLYTIC GROUP B LIGHT GROWTH NORMAL URO-GENITAL DENISE NEGATIVE FOR NEISSERIA GONORRHOEAE Report Status FINAL 12/03/2023 [facility] Comment on above: Performed By: #### G EC #### [id number] [place] [address] Caramel Candy Maker: Kenotn Marcelino MD [facility] [address] [place] [address] Caramel Candy Maker: Krissy Sweet MD HPV DNA High Riskon 12-03-19 24 HPV Interp [facility] Comment on above: Result Comment: This [...] purposes. Performed By: #### H PVH #### [address] [address] Caramel Candy Maker: Kenton Marcelino MD HPV Type 16 Not detected [facility] Comment on above: Performed By: #### H PVH #### [address] [address] Caramel Candy Maker: Kenton Marcelino MD HPV Type 18 Not detected [facility] Comment on above: Performed By: #### H PVH #### [address] [address] Caramel Candy Maker: Kenton Marcelino MD Other High Risk HPV Not detected [facility] Comment on above: Performed By: #### H PVH #### [address] [address] Caramel Candy Maker: Kenton Marcelino MD HPV DNA High Riskon 11-30-19 24 HPV Sample .THIN PREP [facility] Comment on above: Performed By: #### H PVH #### [address] [address] Caramel Candy Maker: Kenton Marcelino MD Source CERVICAL MATERIAL [facility] Comment on above: Performed By: #### H PVH #### [address] [address] Caramel Candy Maker: Kenton Marcelino MD Vaginitis DNA Probeon 2023 Olena Negative [facility] Comment on above: Result Comment: for Olena sp. Method of testing is a DNA probe intended for detection and identification of Olena species, Gardnerella vaginalis, and Trichomonas vaginalis nucleic acid in vaginal fluid specimens from patients with symptoms of vaginitis/vaginosis. Performed By: #### V AGP #### [facility] [address] [place] [address] Caramel Candy Maker: Kenton Marcelino MD [facility] [address] [place] [address] Dr. [place], [place] [id number] Caramel Candy Maker: Krissy Sweet MD Gardnerella Negative Normal [facility] Comment on above: Result Comment: for Gardnerella vaginalis Performed By: #### V AGP #### [id number] [place] [address] Caramel Candy Maker: Kenton Marcelino MD [facility] [address] [place] [address] Dr. [place], [place] [id number] Caramel Candy Maker: Krissy Sweet MD Trichomonas Negative Normal [facility] Comment on above: Result Comment: for Trichomonas Vaginalis Performed By: #### V AGP #### [address] [address] Caramel Candy Maker: Kenton Marcelino MD [facility] [address] [place] [address] [place] [address] Caramel Candy Maker: Krissy Sweet MD Cytology Reporton 11-29-2023 Cytology report Cyto stain.thin prep Doc (Cvx/Vag) (NOTE) Path Number: [id number] DIAGNOSIS Imaged ThinPrep Pap - Cervical (1 [...] or for other forensic purposes. Performed at [address] [address] ([phone] Source of Specimen: A: Imaged ThinPrep Pap - Cervical (1 monolayer slide) HPV Reflex?............... .......HPV Regardless Clinical History Postmenopausal Z12.4 Encounter for screening for malignant neoplasm of cervix Processing Lab: [address] [address] Interpretation performed at [address] [address] This Pap Test has been evaluated with the assistance of the ThinPrep Pap Test Imaging System. The Pap smear is a screening test primarily for squamous epithelial lesions, which is subject to both false negative and false positive results. Your patient should be reminded to consult you immediately if she experiences any suspicious signs or symptoms, regardless of her Pap smear result. GYNECOLOGIC CYTOLOGY REPORT Patient Name: MICHELLE PRADO [facility] Rec: [id number] [facility] ANATOMIC PATHOLOGY [address] [place] [id number] Normal [facility] Vaginitis DNA Probeon 2023 Source .VAGINAL SWAB Normal [facility] Comment on above: Performed By: #### V AGP #### [address] [address] Caramel Candy Maker: Kenton Marcelino MD [facility] [address] [place] [address] Caramel Candy Maker: Krissy Sweet MD [place] 10-30-2023 Screens [id number]. [id number] Normal [facility] Urology Office/Clinic Noteon 10-26-2023 Urology Office/Clinic Note Chief Complaint New Pt HPI Staff New pt. Last seen in our office by RWR 09/29/13 due to Urgency & Frequency Started on Toviaz at that time. 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 08/29/22 - A1c 5.8. BUN 15. Cr 0.89. eGFR >60. 1. Vaginal odor (N89.8: Other specified noninflammatory disorders of vagina) Reports ongoing odor for a while. No discharge or bleeding. No burning or itching. Hx of yeast infections but feels current sxs are different. Temple sxs may be related to UTI. However denies urgency, change in frequency, dysuria, gross hematuria. UA today negative for blood and infection. Recommended gynecologic swab and to f/u with AIR COMPRESSOR MECHANIC to further discuss sxs. -Submit [employer]CHAN[employer] cx. Will call pt with results. -pt to call and schedule [employer]CHAN[employer] appt. 2. Abdominal pain (R10.9: Unspecified abdominal [...] Contact Information AURA CROUCH, RAMONA Schneider, URL [address] [place] [address] [phone] Additional Instructions: f/u with AIR COMPRESSOR MECHANIC Patient Education Abdominal Pain, Adult Documentation recorded by the scribaurelia Beltran accurately reflects the services(s) I performed [...] Negative ( (more content not included)... Normal [facility] Comment on above: Result Comment: Elec tronically [...] these instructions at home: Medicines ? Take tclb-ovh-dtvkldn and prescription medicines only as told by [...] your condition for any changes. ? Take hmkj-ufc-vewnnlq and prescription medicines only as told by [...] provider. Document Revised: 07/23/2020 Document Reviewed: 10/13/2019 [employer] Patient Education ? 2022 [employer] Normal [facility] MG MAMM SCREEN 3D SHELIA CADon 10-17-2022 MG MAMM SCREEN 3D SHELIA CAD Patient: MICHELLE PRADO Exam Date: 10/17/2022 : 1960 Gender:F Ordering : DR MAGGIE HERR . Admission #: [id number] Family : Order #: [id number] CLICK HERE TO VIEW EXAM RADIOLOGY REPORT [...] unknown cancer at age 80. LOCATION: [facility] BREAST COMPOSITION: Heterogeneously dense,which may obscure small [...] MD on 10/18/2022 at 09:12 Normal [facility] OCC BLD IMMUNO SCREENon 2 OCCULT BLOOD Negative Normal NEGATIVE [facility] Comment on above: Performed By: #### O BSCRN #### [facility] [address] [address] [address] Estrella Curtis INSULINon 08-31-2022 Insulin 4.5 uIU/mL Normal 2.6-24.9 [facility] Comment on above: Performed By: #### I NSULIN #### [facility] [address] [address] [address] Estrella Curtis CBC AUTO DIFFon 08-29-2022 BASO # 0.0 103/ul Normal 0.0-0.1 [facility] Comment on above: Performed By: #### C BC #### [facility] [address] [place] [address] Dr. Estrella Curtis Basophils/100 WBC (Bld) 0.4 % Normal 0.2-2.0 [facility] Comment on above: Performed By: #### C BC #### [facility] [address] [place] [address] Dr. Estrella Curtis EO # 0.1 103/ul Normal 0.0-0.7 [facility] Comment on above: Performed By: #### C BC #### [facility] [address] [place] [address] Dr. Estrella Curtis Eosinophils/100 WBC (Bld) 2.8 % Normal 0.9-7.0 [facility] Comment on above: Performed By: #### C BC #### [facility] [address] [place] [address] Dr. Estrella Curtis Erythrocyte distribution width (RBC) [Ratio] 13.3 % Normal 11.0-15.0 [facility] Comment on above: Performed By: #### C BC #### [facility] [address] [place] [address] Dr. Estrella Curtis Hematocrit (Bld) [Volume fraction] 37.4 % Normal 36.0-48.0 [facility] Comment on above: Performed By: #### C BC #### [facility] [address] [place] [address] Dr. Estrella Curtis Hemoglobin (Bld) [Mass/Vol] 12.4 g/dL Normal 12.0-16.0 [facility] Comment on above: Performed By: #### C BC #### [facility] [address] [place] [address] Dr. Estrella Curtis IG # 0.01 10e3/ul Normal 0.00-0.03 [facility] Comment on above: Performed By: #### C BC #### [facility] [address] [place] [address] Dr. Estrella Curtis IG % 0.2 % Normal 0.0-0.5 [facility] Comment on above: Performed By: #### C BC #### [facility] [address] [place] [address] Dr. Estrella Curtis LYMPH # 1.6 103/ul Normal 1.2-3.8 [facility] Comment on above: Performed By: #### C BC #### [facility] [address] [place] [address] Dr. Estrella Curtis Lymphocytes/100 WBC (Bld) 34.3 % Normal 20.5-60.0 [facility] Comment on above: Performed By: #### C BC #### [facility] [address] [place] [address] Dr. Estrella Curtis MANUAL DIFF REQ NO Normal [facility] Comment on above: Performed By: #### C BC #### [facility] [address] [place] [address] Dr. Estrella Curtis MCH (RBC) [Entitic mass] 29.7 pg Normal 26.7-34.0 [facility] Comment on above: Performed By: #### C BC #### [facility] [address] [place] [address] Dr. Estrella Curtis MCHC (RBC) [Mass/Vol] 33.2 g/dL Normal 29.9-35.2 [facility] Comment on above: Performed By: #### C BC #### [facility] [address] [place] [address] Dr. Estrella Curtis MCV (RBC) [Entitic vol] 89.5 fL Normal 81.0-99.0 [facility] Comment on above: Performed By: #### C BC #### [facility] [address] [place] [address] Dr. Estrella Curtis MONO # 0.4 103/ul Normal 0.3-0.8 [facility] Comment on above: Performed By: #### C BC #### [facility] [address] [place] [address] Dr. Estrella Curtis Monocytes/100 WBC (Bld) 9.2 % Normal 1.7-12.0 [facility] Comment on above: Performed By: #### C BC #### [facility] [address] [place] [address] Dr. Estrella Curtis NEUT # 2.4 103/ul Normal 1.4-6.5 [facility] Comment on above: Performed By: #### C BC #### [facility] [address] [place] [address] Dr. Estrella Curtis Neutrophils/100 WBC (Bld) 53.1 % Normal 43.0-75.0 [facility] Comment on above: Performed By: #### C BC #### [facility] [address] [place] [address] Dr. Estrella Curtis Platelet mean volume (Bld) [Entitic vol] 10.1 fL Normal 9.5-13.5 [facility] Comment on above: Performed By: #### C BC #### [facility] [address] [place] [address] Dr. Estrella Curtis PLT 276 103/ul Normal 150-450 [facility] Comment on above: Performed By: #### C BC #### [facility] [address] [place] [address] Dr. Estrella Curtis RBC 4.18 106/ul Critically low 4.20-5.40 [facility] Comment on above: Performed By: #### C BC #### [facility] [address] [place] [address] Dr. Estrella Curtis WBC 4.6 103/ul Normal 4.0-11.0 [facility] Comment on above: Performed By: #### C BC #### [facility] [address] [place] [address] Dr. Estrella Curtis FREE THYROXINE INDEX T7on FTI 3.14 Normal 1.30-4.50 [facility] Comment on above: Performed By: #### T SH, T7, LIPID, CMP ####[facility] [id number] [address] Estrella Curtis T3U 33.0 % Normal 30.0-39.0 [facility] Comment on above: Performed By: #### T SH, T7, LIPID, CMP ####[facility] [id number] Estrella Curtis T4 [Mass/Vol] 9.50 ug/dL Normal 4.80-13.90 [facility] Comment on above: Performed By: #### T SH, T7, LIPID, CMP ####[facility] [id number] [place], [place] [address]BeDr. Estrella Curtis GLYCOHEMOGLOBIN A1Con 2022 ADA RECOMMENDATION SEE BELOW Normal [facility] Comment on above: Result Comment: ADA RECOMMENDED LIMIT 4.0 - 6.0 ADA THERAPEUTIC TARGET < 7.0 ACTION SUGGESTED > 7.0 Performed By: #### A 1C #### [facility] [address] [address] [address] Estrella Curtis Glucose [Mass/Vol] 120 mg/dL Normal [facility] Comment on above: Performed By: #### A 1C #### [facility] [address] [address] [address] Estrella Curtis HbA1c (Bld) [Mass fraction] 5.8 % Normal 4.5-6.2 [facility] Comment on above: Performed By: #### A 1C #### [facility] [address] [address] [address] Estrella Curtis IRONon 08-29-2022 Iron [Mass/Vol] 82.0 ug/dL Normal 50.0-170.0 [facility] Comment on above: Performed By: #### I MONIKA #### [facility] [address] [address] [address] Estrella Curtis LIPID PROFILEon 08-29-2022 CHOL-HDL RATIO NORM SEE BELOW Normal [facility] Comment on above: Result Comment: 3.3 - 4.4 LOW RISK 4.4 - 7.1 AVERAGE RISK 7.1 - 11.0 MODERATE RISK >11.0 HIGH RISK Performed By: #### T SH, T7, LIPID, CMP #### [facility] [address] [address] [address] Estrella Curtis Cholesterol [Mass/Vol] 203 mg/dL Critically high <=200 [facility] Comment on above: Performed By: #### T SH, T7, LIPID, CMP #### [facility] [address] [address] [address] Estrella Curtis Cholesterol in HDL [Mass/Vol] 62 mg/dL Critically high 40-60 [facility] Comment on above: Performed By: #### T SH, T7, LIPID, CMP #### [facility] [address] [address] [address] Estrella Curtis Cholesterol in LDL [Mass/Vol] 122.2 mg/dL Normal [facility] Comment on above: Performed By: #### T SH, T7, LIPID, CMP #### [facility] [address] [place] [address] Dr. Estrella Curtis Cholesterol.total/Ch olesterol in HDL [Mass ratio] 3.3 {ratio} Normal [facility] Comment on above: Performed By: #### T SH, T7, LIPID, CMP #### [facility] [address] [address] [address] Estrella Curtis HDL NORMAL > or = 60 mg/dl - LO W CARDIOVASCULAR RISK <40 mg/dl - HIGH CARDIOVASCULAR RISK Normal [facility] Comment on above: Performed By: #### T SH, T7, LIPID, CMP #### [facility] [address] [place] [address] Dr. Estrella Curtis LDL CALC NORMAL SEE BELOW Normal [facility] Comment on above: Result Comment: <100 mg/dl OPTIMAL 100 - 129 mg/dl NEAR OR ABOVE OPTIMAL 130 - 159 mg/dl BORDERLINE HIGH 160 - 189 mg/dl HIGH >190 mg/dl VERY HIGH Performed By: #### T SH, T7, LIPID, CMP #### [facility] [address] [place] [address] Dr. Estrella Curtis Triglyceride [Mass/Vol] 94 mg/dL Normal <=150 [facility] Comment on above: Performed By: #### T SH, T7, LIPID, CMP #### [facility] [address] [place] [address] Dr. Estrella Curtis VLDL CALC 18.8 mg/dL Normal [facility] Comment on above: Performed By: #### T SH, T7, LIPID, CMP #### [facility] [address] [address] [address] Estrella Curtis PROF 14(COMP METB)on 023 Albumin [Mass/Vol] 4.3 g/dL Normal 3.4-5.0 [facility] Comment on above: Performed By: #### T SH, T7, LIPID, CMP #### [facility] [address] [place] [address] Dr. Estrella Curtis Albumin/Globulin [Mass ratio] 1.3 {ratio} Normal [facility] Comment on above: Performed By: #### T SH, T7, LIPID, CMP #### [facility] [address] [place] [address] Dr. Estrella Curtis ALP [Catalytic activity/Vol] 84 U/L Normal 46-116 [facility] Comment on above: Performed By: #### T SH, T7, LIPID, CMP #### [facility] [address] [place] [address] Dr. Estrella Curtis ALT [Catalytic activity/Vol] 48 U/L Normal 14-59 [facility] Comment on above: Performed By: #### T SH, T7, LIPID, CMP #### [facility] [address] [place] [address] Dr. Estrella Curtis Anion gap [Moles/Vol] 12.0 mmol/L Normal [facility] Comment on above: Performed By: #### T SH, T7, LIPID, CMP #### [facility] [address] [place] [address] Dr. Estrella Curtis AST [Catalytic activity/Vol] 33 U/L Normal 15-37 [facility] Comment on above: Performed By: #### T SH, T7, LIPID, CMP #### [facility] [address] [place] [address] Dr. Estrella Curtis Bilirubin [Mass/Vol] 0.5 mg/dL Normal 0.2-1.0 [facility] Comment on above: Performed By: #### T SH, T7, LIPID, CMP #### [facility] [address] [address] [address] Estrella Curtis Calcium [Mass/Vol] 9.3 mg/dL Normal 8.5-10.1 [facility] Comment on above: Performed By: #### T SH, T7, LIPID, CMP #### [facility] [address] [place] [address] Dr. Estrella Curtis Chloride [Moles/Vol] 104 mmol/L Normal 98-107 [facility] Comment on above: Performed By: #### T SH, T7, LIPID, CMP #### [facility] [address] [place] [address] Dr. Estrella Curtis CO2 [Moles/Vol] 29.5 mmol/L Normal 21.0-32.0 [facility] Comment on above: Performed By: #### T SH, T7, LIPID, CMP #### [facility] [address] [place] [address] Dr. Estrella Curtis Creatinine [Mass/Vol] 0.89 mg/dL Normal 0.55-1.02 [facility] Comment on above: Performed By: #### T SH, T7, LIPID, CMP #### [facility] [address] [place] [address] Dr. Estrella Curtis EGFR-AF TAIWANESE >60 Normal >=60 [facility] Comment on above: Performed By: #### T SH, T7, LIPID, CMP #### [facility] [address] [place] [address] Dr. Estrella Curtis EGFR-NON AF TAIWANESE >60 Normal >=60 [facility] Comment on above: Performed By: #### T SH, T7, LIPID, CMP #### [facility] [address] [place] [address] Dr. Estrella Curtis Globulin (S) [Mass/Vol] 3.2 g/dL Normal [facility] Comment on above: Performed By: #### T SH, T7, LIPID, CMP #### [facility] [address] [place] [address] Dr. Estrella Curtis Glucose [Mass/Vol] 97 mg/dL Normal 74-106 [facility] Comment on above: Performed By: #### T SH, T7, LIPID, CMP #### [facility] [address] [address] [address] Estrella Curtis Potassium [Moles/Vol] 4.5 mmol/L Normal 3.5-5.1 [facility] Comment on above: Performed By: #### T SH, T7, LIPID, CMP #### [facility] [address] [address] [address] Estrella Curtis Protein [Mass/Vol] 7.5 g/dL Normal 6.4-8.2 [facility] Comment on above: Performed By: #### T SH, T7, LIPID, CMP #### [facility] [address] [address] [address] Estrella Curtis Sodium [Moles/Vol] 141 mmol/L Normal 136-145 [facility] Comment on above: Performed By: #### T SH, T7, LIPID, CMP #### [facility] [address] [address] [address] Estrella Curtis Urea nitrogen [Mass/Vol] 15.0 mg/dL Normal 7.0-18.0 [facility] Comment on above: Performed By: #### T SH, T7, LIPID, CMP #### [facility] [address] [place] [address] Dr. Estrella Curtis Urea nitrogen/Creatinine [Mass ratio] 16.9 mg/mg Normal [facility] Comment on above: Performed By: #### T SH, T7, LIPID, CMP #### [facility] [address] [address] [address] Estrella Curtis TSHon 08-29-2022 TSH 5.036 uIU/mL Critically high 0.358-3.740 [facility] Comment on above: Performed By: #### T SH, T7, LIPID, CMP ####[facility] [id number] [address]Dr. Estrella Curtis Covid-19 PCR ([facility]on SARS-CoV-2 (COVID-19) RNA FRANCISCO J+probe Ql (Unsp spec) Not detected Normal NOT DETECTED [facility] Comment on above: Result Comment: When [...] for this test is supported by the Emergency Room Doctor of Health and Human Service's declaration that [...] longer be used). Performed By: #### C VDTB ####[facility] [id number] [address]Dr. Estrella Curtis INFLUENZA A AND B AGon 05-25 INFLUBNEG SEE BELOW Normal [facility] Comment on above: Result Comment: Nega tive for Flu B protein antigen. Infection due to Flu B cannot be ruled out. Flu B antigen in the sample may be below the detection limit of the test. Performed By: #### I NFLUAB #### [facility] [address] [address] [address] Estrella Curtis INFLUENZA A AG Positive Abnormal NEGATIVE SEE COMMENT [facility] Comment on above: Performed By: #### I NFLUAB #### [facility] [address] [address] [address] Estrella Curtis INFLUENZA B AG Negative Normal NEGATIVE SEE COMMENT [facility] Comment on above: Performed By: #### I NFLUAB #### [facility] [address] [address] [address] Estrella Curtis INFLUPOSH SEE BELOW Normal [facility] Comment on above: Result Comment: NOTE : Live attenuated influenzae vaccine viruses can cause a positive result for a rapid influenza diagnostic test if administered up to 7 days prior to rapid testing. Performed By: #### I NFLUAB #### [facility] [address] [address] [address] Estrella Curtis INTERNAL CONTROLS Within Normal Limits Normal Wi thin Normal Limits [facility] Comment on above: Performed By: #### I NFLUAB #### [facility] [address] [place], [place] [address] Dr. Estrella Curtis Vital Signs Date Time Vital Sign Value Performing Clinician Keithi edith 10-23-2023 15:18-0400 Blood Pressure Location RAMONAMATT CHAVARRIA [facility] 10-23-2023 15:18-0400 Diastolic blood pressure 97 mm[Hg] RAMONA CHAVARRIA [facility] 10-23-2023 15:18-0400 Heart rate 61 /min RAMONAMATT CHAVARRIA [facility] 10-23-2023 15:18-0400 Respiratory rate 20 /min RAMONAMATT CHAVARRIA [facility] 10-23-2023 15:18-0400 Systolic blood pressure 162 mm[Hg] RAMONA CHAVARRIA [facility] Encounters Encounter Date Encounter Type Care Provider Facility Start: [facility]-07-2024 [facility] Start: 03-31-2024 End: 03-31-2024 ambulatory [facility] Start: 03-17-2024 End: 03-17-2024 [facility] Start: 03-03-2024 End: 03-03-2024 ambulatory [facility] Start: 02-25-2024 ambulatory MONCURE Aurelia CEDEÑO [facility] Start: 02-11-2024 End: 02-11-2024 ambulatory [facility] Start: 01-28-2024 End: 01-28-2024 ambulatory [facility] Start: 01-14-2024 End: 01-14-2024 ambulatory [facility] Start: 01-07-2024 End: 01-07-2024 ambulatory [facility] Start: 12-26-2023 ambulatory [facility] Start: 12-05-2023 End: 12-07-2023 ambulatory [facility] Start: 11-29-2023 End: 11-29-2023 ambulatory [facility] Start: 11-29-2023 End: 11-29-[address] [facility] Start: 10-26-2023 ambulatory RMAONA CHAVARRIA Facility :[facility] Start: 10-23-2023 End: 10-24-2023 ambulatory RAMONA CHAVARRIA Facility:[facility] Start: 10-23-2023 End: 10-24-2023 ambulatory RAMONA CHAVARRIA Facility: [place] Start: 10-23-2023 End: 10-23-2023 Lab Drop off RAMONA CHAVARRIA [facility] Start: 10-23-2023 End: 10-23-2023 Patient encounter procedure RAMONA CHAVARRIA [facility] Start: 09-06-2023 End: 09-06-2023 ambulatory STEVE DUARTE Not Available Start: 08-30-2023 End: 08-30-2023 ambulatory STEVE DUARTE Not Available Start: 08-23-2023 End: 08-23-2023 ambulatory STEVE DUARTE Not Available Start: 06-26-2023 End: 06-26-2023 ambulatory STEVE DUARTE Not Available Start: 10-17-2022 End: 10-18-[address] MAGGIE HERR . Facility:[facility] Start: 10-12-2022 Encounter for genera l adult medical examination without abnormal findings DR MAGGIE HERR . [facility] Start: 10-06-2022 End: 10-06-[address] MAGGIE [...] End: 12-01-[address] MAGGIE HERR . Facility: Procedures Date Procedure Procedure Detail Performing Clinician Start: 09-23-2013 Cystourethroscopy wi th dilation of urethral stricture RAMONA CHAVARRIA Start: 04-29-2003 Cystourethroscopy wi th dilation of urethral stricture RAMONA CHAVARRIA Ligation of fallopian tube J KEYSHA CHAVARRIA Payers Date Payer Category Payer Unknown [id number] 2.16.84 [id number] 1960 Unknown [id number] 2.16.84 0.1.432069.3.579.2.593 1960 Unknown [id number] 2.16.84 0.1.889860.3.579.2.593 1960 Unknown [id number] 2.16.84 0.1.175316.3.579.2.593 1960 Unknown [id number] 2.16.84 0.1.438798.3.579.2.593 1960 Unknown [id number] 2.16.84 0.1.036614.3.579.2.1259 1960 Unknown [id number] 2.16.84 0.1.630479.3.579.2.1259 1960 Unknown [id number] 2.16.84 0.1.682741.3.579.2.1259 1960 Unknown [id number] 2.16.84 0.1.730542.3.579.2.1259 1960 Unknown [id number] 2.16.84 0.1.919022.3.579.2.1259 1960 Unknown [id number] 2.16.84 0.1.150359.3.579.2.1259 1960 Unknown [id number] 2.16.8 40.1.259141.3.579.2.727 1960 Unknown [id number] 2.16.8 40.1.076503.3.579.2.727 1960 Unknown [id number] 2.16. 840.1.316739.3.579.2.175 1960 Unknown [id number] 2.16.8 40.1.820769.3.579.2.173 1960 Unknown [id number] 2.16.8 40.1.097906.3.579.2.173 1960 Unknown [id number] 2.16.8 40.1.861789.3.579.2.173 1960 Unknown [id number] 2.16.8 40.1.757526.3.579.2.173 1960 Unknown [id number] 2.16.8 40.1.337126.3.579.2.173 1960 Unknown [id number] 2.16.8 40.1.776126.3.579.2.173 1960 Unknown [id number] 2.16.8 40.1.062175.3.579.2.173 1960 Unknown [id number] 2.16.8 40.1.661454.3.579.2.173 1960 Unknown [id number] 2.16.8 40.1.075452.3.579.2.173 1960 Unknown [id number] 2.16.8 40.1.511867.3.579.2.173 1960 Unknown [id number] 2.16.8 40.1.146185.3.579.2.173 1960 Unknown [id number] 2.16.8 40.1.381166.3.579.2.1286 1959 Private Health Insurance [id number] Self-pay [id number] Unknown [id number] 2.16.84 0.1.930554.3.579.2.593 Social History Date Type Detail Facility Start: 10-23-2023 Tobacco smoking status Ex-smoker (fi nding) [facility] Sex Assigned At Female [facility] Functional Status Date Assessment Result Facility 10-23-2023 Functional Status N/A [facility] Clinical Note 10-26-2023 Note Date & Type [...] Locations R1: This test was performed at: [facility], [address] [place] [address], [phone] , [facility] Comment on above: Performed By: #### 1 [id number] #### [facility] [address] [place] [address] Hospital Discharge instructions 10-23-2023 Note Date & [...] Follow these instructions at home: Medicines Take ggnb-mtp-ojtclpb and prescription medicines only as told by [...] Watch your condition for any changes. Take uhuv-wnc-riaascn and prescription medicines only as told by [...] provider. Document Revised: 07/23/2020 Document Reviewed: 10/13/2019 [employer] Patient Education 2022 [employer]. Follow Up Care 10/15/2023 10:31:47 With:RAMONA CHAVARRIA PA-C, URL Address: [address] [place] [address] [phone] When: Unknown [facility] Evaluation + Plan note 10-23-2023 Note Date & Type Note Facility 10-23-2023 Evaluation + Plan note Diagnostic Tests PendingGynecological Culture 10/23/23 [facility] Clinical Note 12-01-2021 Note Date & Type [...] by: ANOOP FELIX Date: 2021-12-01 11:20 [facility] Evaluation + Plan note Note Date & Type Note Facility Evaluation + Plan note No data available for this section [facility] Hospital Discharge instructions Note Date & Type Note Facility Hospital Discharge instructions No data available for this section [facility] Progress note Note Date & Type Note Facility Progress note No data available for this section [facility] Summary Purpose Family History No Family History [...] and content) DATE CREATED AUTHOR 10/25/2022 [facility] DATE CREATED AUTHOR AUTHOR'S ORGANIZ ATION 09/08/2023 [facility] EPIC DATE CREATED AUTHOR AUTHOR'S ORGANIZ ATION 11/01/2023 [facility] DATE CREATED AUTHOR AUTHOR'S ORGANIZ ATION 12/07/2023 [facility] DATE CREATED AUTHOR AUTHOR'[facility] ORGANIZ ATION [facility] DATE CREATED AUTHOR AUTHOR'S ORGANIZ ATION 04/02/2024 [facility] Patient Care team informatio n (unrecognized section and content) Personnel Name: Maggie Herr MD Address: Address: [address] [place] [address] Personnel Name: Maggie Herr MD Address: Address: [address] [place] [address] FOR RECORDS PERTAINING TO PATIENTS WHO ARE [...] BE BASED ON THE PRIMARY CLINICAL RECORDS. [facility] [employer] provides no warranty or guarantee of the accuracy or completeness of information in this document.
[2024-04-02 15:10] LABS: Occult Blood Positive
[2024-04-02 15:11] LABS: Internal Control Within Normal Limits
== END 2024-04-02 14:46 | disposition home or self-care (01) ==
LOC: LAB 14:45
PROVIDERS: PCP Family Medicine; Visit Provider Family Medicine
DX: Z00.00 Encounter for general adult medical examination without abnormal findings (principal); E55.9 Vitamin D deficiency, unspecified; R53.83 Other fatigue; Z12.11 Encounter for screening for malignant neoplasm of colon
CPT/HCPCS: G0328

== ENCOUNTER 2024-12-09 09:24 | Outpatient (OUT) | payer OTHER, SELFPAY ==
--- OUTSIDE RECORDS SUMMARY | 2015-11-18 02:19 | XMS_ITS | Encounter Summary ---
Author Organization [facility] Address [address] [place] [address] Care Team Providers Care Channel Executive Name Role Phone Gus Herr MD Primary Care Provider [phone] Encounter Details Date Type Department Care Team (Late st Contact Info) Description 11/18/2015 2:19 AM EDT Hospital Encounter [facility] [address] [phone] Social History Tobacco Use Types Packs/Day Years Used Date Smoking Tobacco: Never Smokeless Tobacco: Never Alcohol Use Standard Drinks/Week Comments Yes 0 (1 standard drink = 0.6 oz pur e alcohol) social Overall Financial Resource Strain (CARDIA) Answe r Date Recorded How hard is it for you to pa y for the very basics like food, housing, medical care, and heating? Not hard at all 11/29/2023 PHQ-2 Answer Date Recorded PHQ-9 Total Score 0 11/29/2023 Hunger Vital Sign Answer Date Recorded Within the past 12 months, y ou worried that your food would run out before you got the money to buy more. Never true 11/29/19 24 Within the past 12 months, t he food you bought just didn't last and you didn't have money to get more. Never true 11/29/2023 PRAPARE - Transportation Answer Date Re corded Lack of Transportation (Medical) Not on file 11/29/2023 In the past 12 months, has l ack of transportation kept you from meetings, work, or from getting things needed for daily living? No 11/29/2023 Housing Stability Vital Sign Answer Hong e Recorded Unable to Pay for Housing in the Last Year Not o n file 11/29/2023 Number of Places Lived in the Last Year Not on f ile 11/29/2023 In the last 12 months, was t here a time when you did not have a steady place to sleep or slept in a senior care (including now)? No 11/29/2023 Food Insecurity Answer Date Recorded Within the past 12 months, y ou worried that your food would run out before you got the money to buy more. 1 11/29/2023 Within the past 12 months, t he food you bought just didn't last and you didn't have money to get more. 1 11/29/2023 Comments No Sex and Gender Information Value Date Recorded Sex Assigned at Not on file Legal Sex Female 8:44 AM EST Gender Identity Not on file Sexual Orientation Not on file documented as of this encounter Plan of Treatment Not on file documented as of this encounter Visit Diagnoses Not on filedocumented in this encounter Care Teams Channel Executive Relationship Specialty Start Date End Date Gus Herr MD [address] [place] [address] PCP - General 09/02/13 documented as of this encounter
--- OUTSIDE RECORDS SUMMARY | 2024-11-26 08:00 | XMS_ITS | Encounter Summary ---
Author Organization [facility] Address [address] [place] [address] Care Team Providers Care Ict Customer Support Officer Name Role Phone Gus Herr MD Primary Care Provider [phone] Reason for Visit * Rehabilitation - Outpatient (Routine) - Authorized Specialty Diagnoses / Procedures Referred By Mahin jacobs Referred To Contact Physical Therapy Diagnoses Aftercare following right knee joint replacement surgery Procedures DC OFFICE/OUTPATIENT [facility] 60 MINUTES Mack Delaney, DO [address] [place] [address] Phone: tel: fax: Jacklyn Trammell, PT [address] [facility] [address] [place] [address] Phone: tel: fax: Referral ID Status Reason Start Date Expiration Date Visits Requested Visits Authorized [id number] Authorized Consult and Treat 11/14/2024 06/17/2025 59 59 Encounter Details Date Type Department Care Team (Latest Contact Info) Description 11/26/2024 8:00 AM EDT Clinical Support [facility] [address] [facility] [address] [place] [address] Jacklyn Trammell, PT [address] [facility] [address] [place] [address] Primary osteoarthritis of right knee (Primary Dx); Acute postoperative pain of right knee; Status post right knee replacement Social History Tobacco Use Types Packs/Day Years Used Date Smoking Tobacco: Former Cigarettes Q uit: 1999 Smokeless Tobacco: Never Comments Unknown Sex and Gender Information Value Date Recorded Sex Assigned at Not on file Legal Sex Female 7:01 PM EDT Gender Identity Not on file Sexual Orientation Not on file documented as of this encounter Progress Notes * Jacklyn Trammell, PT - 11/26/2024 8:00 AM EDT Physical Therapy Physical Therapy Daily Visit Patient Name: Michelle Rodriguez Today's Date: 11/26/2024 Subjective Current Problem: s/p right TKA with pain and difficulty walking. Pt is being seen today for follow up visit for s/p right TKA. Date of Surgery: 11/17/2024 with same day discharge. Current deficits: Difficulty with all mobility secondary to recent right TKA and pain. Visit Number [id number] Time In: 8:00 am; Time out: 8:38 am Total time: 38 minutes [id number] TherEx x 30 minutes [id number] gait training x 8 minutes Precautions: WBAT Right LE; Right TKA protocol Pain Management: The patient is complaining of pain located in the Righ knee and thigh region. Painrating 5/10. The pain is improved by ice and medication 1 every 6 hours of pain meds and Tylenol asneeded. The pain is aggravated by activity. The pain is described as aching, throbbing and stiffness. Prior level of function: Ambulation: antalgic gait pattern on Right LE. Assistive devices: FWW, cane ADL and IADL: Independent. Home Environment: Pt lives with her in a one story home home with 2-3 steps to enter; has tub/shower on first floor along with bedroom. Objective General Visit Information: Passive ROM: Left knee 10 to 88 degrees. Joint play: hypomobile. Manual muscle testing: Left knee flexion/extension: 3-/5. Palpation: Minimal warmth upon palpation,consistent with post-operative conditions. Surgical incision intact with Mepilex dressing was changed this date. Incision intact with lo with no concerns. New Mepilex dressing applied. Special tests: Negative Kayden Sign. Functional Mobility: Bed Mobility: SBA Sit to Stand: SBA Stair Negotiation: CGA Ambulation: Patient is ambulating with moderate antalgic type pattern with SWW, reciprocal to gait pattern; Fair heel to toe gait pattern; SBA. Pt ambulated approx 150' x 2 with slow chantelle. Limitedknee flexion during swing phase and heavy dependency on UE on walker. Tinetti Gait and Balance Assessment: Sitting balance: Steady, safe = 1. Rises from chair: uses UE's= 1. Attempts to rise: second attempt = 1. Immediate standing balance (first 5 seconds): Steady but uses walker or other support = 1. Standing balance: Steady but uses walker or other support = 1. Nudged: Staggers, grabs, catches self = 1. Eyes closed: Steady = 1. Turning 360 degrees: Discontinuous steps = 0 , Unsteady (grabs, staggers) = 0. Sitting down: Uses arms or not a smooth motion = 1. Balance Score: 8/16. Indication of gait: No hesitancy = 1. Step of length and height: Step to = 0. Foot clearance: L foot clears floor = 1 , R foot clears floor = 1. Step symmetry: Right and left step length no equal = 0. Step continuity: Stopping or discontinuity between steps = 0. Path: Mild/moderate deviation or uses w/ aid = 1. Trunk: No sway but flex knees or back or uses arms for stability = 1. Walking time: Heels apart = 0. Gait score: 10/27. Total Score = Balance + Gait 05/15. Tinetti tool score: < = 18 High. Physical Education Intervention Physical Therapy Education: Pt was educated on the importance of cyrotherapy and elevation. Reviewed proper pillow placement under LE to maintain good extension. Stressed the importance also of ambulating at at least every other hour for 2-5 minutes duration and completion of HEP 2x/day. Patient was educated with regards to signs and symptoms to monitor with respect to blood clots and infection. Therapeutic Exercise : Pt completed right LE supine exercises of glut sets, quad sets, and ankle pumps (hourly) at this time, 10x. Pt completed seated heel slides with plastic bag, 10x. Completed standing heel raises, marches and hip abduction, mini squats, ham curls and standing SLR. Completed static knee extension on chair x 5 minutes. Added HEP updated and reviewed. Gait Training: Gait training this date with FWW with instruction for reciprocal gait pattern for right affective LE with increase cues for heel to toe pattern and knee flexion during swing; good carryover. Therapeutic Activity: All transfers performed at [facility] Assessment & Plan Pt making steady slow gains with all mobility, ROM and strength gain. Assessment Impairments: abnormal gait, abnormal or restricted ROM, impaired balance, impaired physical strength, pain with function and weight-bearing intolerance Barriers to therapy: Increased pain, edema,bruising and knee weakness. Prognosis: good Goals Short Term Goals Goal 1 : Patient will be independent with HEP with good compliance and independence. Goal 2 : Patient will demonstrate 10-90 degrees of passive range of motion of right knee flexion. Goal 3 : Patient will ambulate >6 minutes modified independently with wheeled walker with good reciprocal gait pattern. Goal 4 : Patient will demonstrate all sit< >stand transfers and supine< >sit bed mobility, modified independent with no cues for proper sequencing. Goal 5 : Patient will ascend/descend 2-3 steps with AD with supervision, step to gait pattern. Intermediate Goals Goal 1 : Patient will demonstrate 5-110 degrees of active Right knee flexion in order to improve indpendence with ambulation up and down steps. Goal 2 : Patient will demonstrate 4+/5 or better right knee strength in order to safely return to activities of interest. Goal 3 : Patient will ambulate community distances on even and uneven surfaces, independently with no AD, normalized gait pattern and < 1/10 report of pain in leftt knee. Goal 4 : Pt will ascend/descend 12+ steps with railing with reciprical gait pattern independently. Goal 5 : Patient will demonstrate good static and dynamic standing balance for >15 mintues without LOB or increase in knee pain. Goal 6 : Pt will improve Tinetti Balance test to 28/28 to indicate no fall risk. Plan Planned modality interventions: cryotherapy Planned therapy interventions: bed mobility training, dressing changes, functional ROM exercises, gait training, home exercise program, manual therapy, neuromuscular re-education, soft tissue mobilization, strengthening, stretching, therapeutic activities and transfer training Frequency: 3x/week. Duration in weeks: 6 Treatment plan discussed with: patient Plan details: Educated to continue icing and elevating. documented in this encounter Plan of Treatment Upcoming Encounters Date Type Department Care Team (Late st Contact Info) Description 12/10/2024 9:00 AM EDT Treatment [facility] [address] [address] Yusef Gudinomantha, PT 12/16/2024 1:30 PM EDT Office Visit [facility] [address] [place] [phone] Mack Delaney, [address] [facility] [place] [address] documented as of this encounter Visit Diagnoses Diagnosis Primary osteoarthritis of right knee- Primary Acute postoperative pain of right knee Status post right knee replacement documented in this encounter Care Teams Ict Customer Support Officer Relationship Specialty Start Date End Date Gus Herr MD [address] [place] [address] PCP - General Family Medicine 10/30/24 documented as of this encounter
--- OUTSIDE RECORDS SUMMARY | 2024-11-28 08:00 | XMS_ITS | Encounter Summary ---
Author Organization [facility] Address [address] [place] [address] Care Team Providers Care Oral And Maxillofacial Surgery Resident Name Role Phone Gus Herr MD Primary Care Provider [phone] Reason for Visit * Rehabilitation - Outpatient (Routine) - Authorized Specialty Diagnoses / Procedures Referred By Mahin jacobs Referred To Contact Physical Therapy Diagnoses Aftercare following right knee joint replacement surgery Procedures [place] OFFICE/OUTPATIENT [facility] 60 MINUTES Mack Delaney, DO [address] [place] [address] Phone: tel: fax: Jacklyn Trammell, PT [address] [facility] [address] [place] [address] Phone: tel: fax: Referral ID Status Reason Start Date Expiration Date Visits Requested Visits Authorized [id number] Authorized Consult and Treat 11/14/2024 06/17/2025 59 59 Encounter Details Date Type Department Care Team (Latest Contact Info) Description 11/28/2024 8:00 AM EDT Clinical Support [facility] [address] [facility] [address] [place] [address] Jacklyn Trammell, PT [address] [facility] [address] [place] [address] Primary osteoarthritis of right knee (Primary Dx); [...] Progress Notes * Jacklyn Trammell, PT - 11/28/2024 8:00 AM EDT Physical Therapy Physical Therapy Daily Visit Patient Name: Michelle Rodriguez Today's Date: 11/28/2024 Subjective Current Problem: s/p right TKA with pain and difficulty walking. Pt is being seen today for follow up visit for s/p right TKA. Pt voiced she is doing well but she is swollen this morning. Stated she walked a lot yesterday. Date of Surgery: 11/17/2024 with same day discharge. Current deficits: Difficulty with all mobility secondary to recent right TKA and pain. Visit Number 6 Time In: 8:00 am; Time out: 8:38 am Total time: 38 minutes 94172 TherEx x 30 minutes [id number] gait training x 8 minutes Precautions: WBAT [...] incision intact with Mepilex dressing was changed on 11/26/2024. Special tests: Negative Kayden Sign. Functional Mobility: Bed Mobility: mod indep Sit to Stand: mod indep Stair Negotiation: CGA Ambulation: Patient is ambulating with walker and str cane this date; supervision with good reciprocal pattern. Tinetti Gait and Balance Assessment: Sitting balance: [...] and knee flexion during swing; good carryover. Trialled str cane ambulation this date with good two point gait pattern; cane height adjusted. Therapeutic Activity: All transfers performed at mod indep Assessment & Plan Pt making steady slow gains with all mobility, ROM and strength gain. Worked on better elevation with pillows built like a wedge . Assessment Impairments: abnormal gait, abnormal or restricted [...] AD with supervision, step to gait pattern. Shelter Goals Goal 1 : Patient will demonstrate [...] AM EDT Treatment [facility] [address] [address] Shahab Natividad, PT 12/16/2024 1:30 PM EDT Office Visit [facility] [address] [place] [phone] Mack Delaney, DO [address] [place] [address] documented as of this encounter Visit Diagnoses Diagnosis Primary osteoarthritis of right knee- Primary Acute postoperative pain of right knee Status post right knee replacement documented in this encounter Care Teams Oral And Maxillofacial Surgery Resident Relationship Specialty Start Date End Date Gus Herr MD [address] [place] [address] PCP - General Family Medicine 10/30/24 documented as of this encounter
--- OUTSIDE RECORDS SUMMARY | 2024-12-01 08:00 | XMS_ITS | Encounter Summary ---
Author Organization [facility] Address [address] [place] [address] Care Team Providers Care Applications System Analyst Name Role Phone Gus Herr MD Primary Care Provider [phone] Reason for Visit * Rehabilitation - Outpatient (Routine) - Authorized Specialty Diagnoses / Procedures Referred By Mahin jacobs Referred To Contact Physical Therapy Diagnoses Aftercare following right knee joint replacement surgery Procedures [place] OFFICE/OUTPATIENT [facility] 60 MINUTES Mack Delaney, DO [address] [place] [address] Phone: tel: fax: Jacklyn Trammell, PT [address] [facility] [address] [place] [address] Phone: tel: fax: Referral ID Status Reason Start Date Expiration Date Visits Requested Visits Authorized [id number] Authorized Consult and Treat 11/14/2024 06/17/2025 59 59 Encounter Details Date Type Department Care Team (Latest Contact Info) Description 12/01/2024 8:00 AM EDT Clinical Support [facility] [address] [facility] 150 [place] [address] Jacklyn Trammell, PT [address] [facility] [address] [place] [address] Primary osteoarthritis of right knee (Primary Dx); [...] Progress Notes * Jacklyn Trammell, PT - 12/01/2024 8:00 AM EDT Physical Therapy Physical Therapy Daily Visit Patient Name: Michelle Rodriguez Today's Date: 12/01/2024 Subjective Current Problem: s/p right TKA with pain and difficulty walking. Pt is being seen today for follow up visit for s/p right TKA. Date of Surgery: 11/17/2024 with same day discharge. Current deficits: Difficulty with all mobility secondary to recent right TKA and pain. Visit Number 7 Time In: 8:00 am; Time out: 8:38 am Total time: 38 minutes 38415 TherEx x 30 minutes [id number] gait training x 8 minutes Precautions: WBAT Right LE; Right TKA protocol Pain Management: The patient is complaining of pain located in the Righ knee and thigh region. Painrating 4/10. The pain is improved by ice and medication 1 every 8 hours of pain meds and Tylenol asneeded. [...] Information: Passive ROM: Left knee 10 to 92 degrees. Joint play: hypomobile. Manual muscle testing: Left knee flexion/extension: 3-/5. Palpation: Minimal warmth upon palpation,consistent with post-operative conditions. Surgical incision intact with Mepilex dressing was changed on 11/26/2024. Special tests: Negative Kayden Sign. Functional Mobility: Bed Mobility: mod indep Sit to Stand: mod indep Stair Negotiation: SBA Ambulation: Patient is ambulating with walker and [...] knee extension on chair x 5 minutes. Completed standing knee flexion step with gentle rocking. HEP updated and reviewed. Gait Training: Gait training this date with FWW with instruction for reciprocal gait pattern for right affective LE with increase cues for heel to toe pattern and knee flexion during swing; good carryover. Trialled str cane ambulation this date with good two point gait pattern; cane height adjusted. Therapeutic Activity: All transfers performed at [facility] indep Assessment & Plan Pt making steady slow gains with all mobility, ROM and strength gain. Pt demonstrating good gait performance in home with cane or with no device. Assessment Impairments: abnormal gait, abnormal or restricted [...] AD with supervision, step to gait pattern. Csr Technician Goals Goal 1 : Patient will demonstrate [...] Treatment [facility] [address] [address] Shahab Natividad, PT 12/16/2024 1:30 PM EDT Office Visit [facility] [address] [facility] [place] [place] [address] Mack Delaney, [address] [place] [address] documented as of this encounter Visit Diagnoses Diagnosis Primary osteoarthritis of right knee- Primary Acute postoperative pain of right knee Status post right knee replacement documented in this encounter Care Teams Applications System Analyst Relationship Specialty Start Date End Date Gus Herr MD [address] [place] [address] PCP - General Family Medicine 10/30/24 documented as of this encounter
--- OUTSIDE RECORDS SUMMARY | 2024-12-03 08:00 | XMS_ITS | Encounter Summary ---
Author Organization [facility] Address [address] [place] [address] Care Team Providers Care Electronics Assembler And Tester Name Role Phone Gus Herr MD Primary Care Provider [phone] Reason for Visit * Rehabilitation - Outpatient (Routine) - Authorized Specialty Diagnoses / Procedures Referred By Mahin jacobs Referred To Contact Physical Therapy Diagnoses Aftercare following right knee joint replacement surgery Procedures [place] OFFICE/OUTPATIENT [facility] 60 MINUTES Mack Delaney, DO [address] [place] [address] Phone: tel: fax: Jacklyn Trammell, PT [address] [facility] 150 [place] [address] Phone: tel: fax: Referral ID Status Reason Start Date Expiration Date Visits Requested Visits Authorized [id number] Authorized Consult and Treat 11/14/2024 06/17/2025 59 59 Encounter Details Date Type Department Care Team (Latest Contact Info) Description 12/03/2024 8:00 AM EDT Clinical Support [facility] [address] [facility] 150 [place] [address] Jacklyn Trammell, PT [address] [facility] 150 [place] [address] Primary osteoarthritis of right knee (Primary Dx); [...] Progress Notes * Jacklyn Trammell, PT - 12/03/2024 8:00 AM EDT Physical Therapy Physical Therapy Daily Visit Patient Name: Michelle Rodriguez Today's Date: 12/03/2024 Subjective Current Problem: s/p right TKA with pain and difficulty walking. Pt is being seen today for follow up visit for s/p right TKA. Date of Surgery: 11/17/2024 with same day discharge. Current deficits: Difficulty with all mobility secondary to recent right TKA and pain. Visit Number 7 Time In: 8:00 am; Time out: 8:40 am Total time: 40 minutes 28878 TherEx x 30 minutes [id number] gait training x 10 minutes Precautions: WBAT Right LE; Right TKA [...] General Visit Information: Passive ROM: Left knee 8 to 92 degrees. Joint play: hypomobile. Manual muscle testing: Left knee flexion/extension: 3/5. Palpation: Minimal warmth upon palpation, consistent with post-operative conditions. Surgical incision intact with [...] date with good two point gait pattern; ambulated outside onuneven surfaces at A no LOB, some hesitation. Therapeutic Activity: All transfers performed at mod [...] AD with supervision, step to gait pattern. Group Home Goals Goal 1 : Patient will demonstrate [...] details: Educated to continue icing and elevating. Soren to be removed next session. [facility] documented in this encounter Plan of Treatment Upcoming Encounters Date Type Department Care Team (Late st Contact Info) Description 12/10/2024 9:00 AM EDT Treatment [facility] [address] [facility] [address] [place] [address] Natividad Gudino, PT 12/16/2024 1:30 PM EDT Office Visit [facility] [address] [place] [address] Mack Delaney, [address] [place] [address] documented as of this encounter Visit Diagnoses Diagnosis Primary osteoarthritis of right knee- Primary Acute postoperative pain of right knee Status post right knee replacement documented in this encounter Care Teams Electronics Assembler And Tester Relationship Specialty Start Date End Date Gus Herr MD [address] [place] [address] PCP - General Family Medicine 10/30/24 documented as of this encounter
--- OUTSIDE RECORDS SUMMARY | 2024-12-05 08:00 | XMS_ITS | Encounter Summary ---
Author Organization [facility] Address [address] [place] [address] Care Team Providers Care Popcorn Candy Maker Name Role Phone Gus Herr MD Primary Care Provider [phone] Reason for Visit * Rehabilitation - Outpatient (Routine) - Authorized Specialty Diagnoses / Procedures Referred By Mahin jacobs Referred To Contact Physical Therapy Diagnoses Aftercare following right knee joint replacement surgery Procedures [place] OFFICE/OUTPATIENT [facility] 60 MINUTES Mack Delaney, DO [address] [place] [address] Phone: tel: fax: Jacklyn Trammell, PT [address] [facility] 150 [place] [address] Phone: tel: fax: Referral ID Status Reason Start Date Expiration Date Visits Requested Visits Authorized [id number] Authorized Consult and Treat 11/14/2024 06/17/2025 59 59 Encounter Details Date Type Department Care Team (Latest Contact Info) Description 12/05/2024 8:00 AM EDT Clinical Support [facility] [address] [facility] 150 [place] [address] Jacklyn Trammell, PT [address] [facility] [address] [place] [address] Primary osteoarthritis of right knee (Primary Dx); [...] Progress Notes * Jacklyn Trammell, PT - 12/05/2024 8:00 AM EDT Physical Therapy Physical Therapy Daily Visit Patient Name: Michelle Rodriguez Today's Date: 12/05/2024 Subjective Current Problem: s/p right TKA with pain and difficulty walking. Pt is being seen today for follow up visit for s/p right TKA. Date of Surgery: 11/17/2024 with same day discharge. Current deficits: Difficulty with all mobility secondary to recent right TKA and pain. Visit Number 9 Time In: 8:00 am; Time out: 8:40 am Total time: 40 minutes [id number] TherEx x 30 minutes [id number] gait training x 10 minutes Precautions: WBAT [...] Information: Passive ROM: Left knee 8 to 95-100 degrees. Joint play: hypomobile. Manual muscle testing: Left knee flexion/extension: 3+/5. Palpation: Minimal warmth upon palpation,consistent with post-operative conditions. Surgical incision intact with Mepilex dressing was removed along with lo being taken out on 12-05-24. Sterile strips placed. Incision healing nicely. Special tests: Negative Kayden Sign. Functional Mobility: [...] a smooth motion = 1. Balance Score: 01/31. Indication of gait: No hesitancy = 1. [...] hesitation. Therapeutic Activity: All transfers performed at [facility] indep Assessment & Plan Pt making steady [...] AD with supervision, step to gait pattern. Band Instrument Maker Goals Goal 1 : Patient will demonstrate [...] details: Educated to continue icing and elevating. [facility] documented in this encounter Plan of Treatment Upcoming Encounters Date Type Department Care Team (Late st Contact Info) Description 12/10/2024 9:00 AM EDT Treatment [facility] [address] [facility] [address] [place] [address] Natividad Gudino, PT 12/16/2024 1:30 PM EDT Office Visit [facility] [address] [place] [address] Mack Delaney, [address] [place] [address] documented as of this encounter Visit Diagnoses Diagnosis Primary osteoarthritis of right knee- Primary Acute postoperative pain of right knee Status post right knee replacement documented in this encounter Care Teams Popcorn Candy Maker Relationship Specialty Start Date End Date Gus Herr MD [address] [place] [facility] [place] [address] PCP - General Family Medicine 10/30/24 documented as of this encounter
--- OUTSIDE RECORDS SUMMARY | 2024-12-09 09:26 | XMS_ITS | Encounter Summary ---
Author Organization [facility] Address [address] [facility] [place] [address] Care Team Providers Care Ribbon Winder Name Role Phone Gus Herr MD Primary Care Provider [phone] Encounter Details Date Type Department Care Team (Latest Contact Info) Description 12/04/2024 Travel Social History Tobacco Use Types Packs/Day Years Used Date Smoking Tobacco: Former Cigarettes Q uit: 1999 Smokeless Tobacco: Never Comments Unknown Sex and Gender Information Value Date Recorded Sex Assigned at Not on file Legal Sex Female 7:01 PM EDT Gender Identity Not on file Sexual Orientation Not on file documented as of this encounter Plan of Treatment Upcoming Encounters Date Type Department Care Team (Late st Contact Info) Description 12/10/2024 9:00 AM EDT Treatment [facility] [address] [place] [address] Natividad Gudino, MIGUEL 12/16/2024 1:30 PM EDT Office Visit [facility] [address] [place] Alfredo [facility] [place] [address] Mack Delaney, DO [address] [place] [address] documented as of this encounter Visit Diagnoses Not on filedocumented in this encounter Care Teams Ribbon Winder Relationship Specialty Start Date End Date Gus Herr MD [address] [facility] [place] [address] PCP - General Family Medicine 5/15/25 documented as of this encounter
--- OUTSIDE RECORDS SUMMARY | 2024-12-09 09:26 | XMS_ITS | Encounter Summary ---
Author Organization [facility] Address [address] [facility] [place] [address] Care Team Providers Care Kennel Aide Name Role Phone Gus Herr MD Primary Care Provider [phone] Encounter Details Date Type Department Care Team (Latest Contact Info) Description 11/27/2024 Travel Social History Tobacco Use Types Packs/Day [...] [address] [place] [address] Natividad Gudino, MIGUEL 12/16/2024 1:30 PM EDT Office Visit [facility] [address] [place] l[place]fredo [facility] [place] [address] Mack Delaney, DO [address] [place] [address] documented as of this encounter Visit Diagnoses Not on filedocumented in this encounter Care Teams Kennel Aide Relationship Specialty Start Date End Date Gus Herr MD [address] [facility] [place] [address] PCP - General Family Medicine 5/15/25 documented as of this encounter
--- OUTSIDE RECORDS SUMMARY | 2024-12-09 09:26 | XMS_ITS | Clinical Summary ---
Author Organization [employer] [facility] tem Address [id number] [address] [place] [address] Care Team Providers Care Manager Technical Support Name Role Phone Unavailable Primary Care Provider Unavailabl e Allergies No known active allergies Medications aspirin 325 mg tablet Take 1 tablet (325 mg total) by mouth. Active ibuprofen (MOTRIN) 800 mg tablet TAKE 1 TABLET BY MOUTH EVERY 8 HOURS NEEDED WITH FOOD OR MILK 06/28/2023 Active iron, carbonyl (IRON CHEWS) 15 mg tablet,chewable Chew and swallow. 10/23/2023 Active metoprolol tartrate (LOPRESSOR) 50 mg tablet 1 tablet (50 mg total). 10/23/2023 Active pantoprazole (PROTONIX) 40 mg EC tablet Take 1 tablet (40 mg total) by mouth. Active simvastatin (ZOCOR) 20 mg tablet Take 1 tablet (20 mg total) by mouth. Active Active Problems Problem Noted Date Diagnosed Date Pelvic pain 02/24/2024 Family History Medical History Relation Name Comments Cancer Father Heart disease Mother Relation Name Status Comments Father Alive Mother Alive Social History Tobacco Use Types Packs/Day Years Used Date Smoking Tobacco: Former Cigarettes Smokeless Tobacco: Never Childcare Answer Date Recorded Childcare Unknown 11/27/2018 Employment Answer Date Recorded Employment Unknown 11/27/2018 Comments No Sex and Gender Information Value Date Recorded Sex Assigned at Not on file Legal Sex Female 11:44 AM EDT Gender Identity Not on file Sexual Orientation Not on file Last Filed Vital Signs Vital Sign Reading Time Taken Comments Blood Pressure 145/90 03/31/2024 1:37 PM EDT Pulse 80 03/31/2024 1:37 PM EDT Temperature - - Respiratory Rate - - Oxygen Saturation - - Inhaled Oxygen Concentration - - Weight 96.6 kg (213 lb) 03/31/2024 1:37 PM EDT Height - - Body Mass Index - - Plan of Treatment Health Maintenance Due Date Last Done Comments Depression Screening 1972 Adult BMI Screening 02/16/1978 DTaP,Tdap and Td Vaccines (1 - Tdap) 02/16/1979 Zoster (Shingles) Vaccine (1 of 2) 02/16/2010 Influenza Vaccine 02/16/2025 03/29/2024, , 04/11/2021, Additional history exists Tobacco Screening 03/31/2025 03/31/2024 Pap Smear 11/28/2026 11/29/2023, 11/29/2023 COVID-19 Vaccine Completed 03/29/2024, , 04/22/2021, Additional history exists Medical Devices Not on file Insurance
--- OUTSIDE RECORDS SUMMARY | 2024-12-09 09:26 | XMS_ITS | Encounter Summary ---
Author Organization [facility] Address [address] [place] [address] Care Team Providers Care House Painting Instructor Name Role Phone Gus Herr MD Primary Care Provider [phone] Reason for Visit * Reason Onset Date Comments Pain Med Refill Request 11/26/2024 Encounter Details Date Type Department Care Team (Late Contact Info) Description 11/26/2024 Telephone [facility] [address] [place] [address] Mack Delaney DO [address] [place] [address] Pain Med Refill Request Social History Tobacco Use Types Packs/Day Years Used Date Smoking Tobacco: Former Cigarettes Q uit: 1999 Smokeless Tobacco: Never Comments Unknown Sex and Gender Information Value Date Recorded Sex Assigned at Not on file Legal Sex Female 7:01 PM EDT Gender Identity Not on file Sexual Orientation Not on file documented as of this encounter Progress Notes * Nicole Savage - 11/26/2024 8:21 AM EDT R TKA 11/17/24 Patient would like a refill of her Percocet called into [facility] in [place]. documented in this encounter Plan of Treatment Upcoming Encounters Date Type Department Care Team (Late Contact Info) Description 12/10/2024 9:00 AM EDT Treatment [facility] [address] [place] [address] Yusef Gudinomantha, PT 12/16/2024 1:30 PM EDT Office Visit [facility] [address] [place] [address] Mack Delaney, [address] [place] [address] documented as of this encounter Visit Diagnoses Diagnosis Primary osteoarthritis of right knee- Primary documented in this encounter Care Teams House Painting Instructor Relationship Specialty Start Date End Date Gus Herr MD [address] [place] [address] PCP - General Family Medicine 10/30/24 documented as of this encounter
--- OUTSIDE RECORDS SUMMARY | 2024-12-09 09:26 | XMS_ITS | Encounter Summary ---
Author Organization [facility] Address [address] [facility] [place] [address] Care Team Providers Care Coordinator Skill Training Program Name Role Phone Gus Herr MD Primary Care Provider [phone] Encounter Details Date Type Department Care Team (Latest Contact Info) Description 12/06/2024 Travel Social History Tobacco Use Types Packs/Day [...] [address] [place] [address] Natividad Gudino, MIGUEL 12/16/2024 1:30 PM EDT Office Visit [facility] [address] [place] Alfred[place] [address] Mack Delaney, DO [address] [place] [address] documented as of this encounter Visit Diagnoses Not on filedocumented in this encounter Care Teams Coordinator Skill Training Program Relationship Specialty Start Date End Date Gus Herr MD [address] [place] [facility] [place] [address] PCP - General Family Medicine 5/15/25 documented as of this encounter
--- OUTSIDE RECORDS SUMMARY | 2024-12-09 09:26 | XMS_ITS | Clinical Summary ---
Author Organization [facility] Address [address] [place] [address] Phone Care Team Providers Care Software Publisher Name Role Phone Unavailable Primary Care Provider Unavailabl e Social History Tobacco Use Types Packs/Day Years Used Date Smoking Tobacco: Never Assessed Comments Unknown Sex and Gender Information Value Date Recorded Sex Assigned at Not on file Legal Sex Female 10:29 AM EDT Gender Identity Not on file Sexual Orientation Not on file Plan of Treatment Health Maintenance Due Date Last Done Comments CT Colonography 1960 Colonoscopy 1960 Colorectal Cancer Screening 1960 FIT-DNA (Cologuard) 1960 FIT 1960 HIV Screening 1960 Lipid Panel 1960 Sigmoidoscopy 1960 Yearly Adult Physical 1960 MMR Vaccines (1 of 1 - Stand heriberto series) 02/16/1961 Hepatitis C Screening 02/16/1978 Cervical Cancer Screening 02/16/1981 HPV/Cotest 02/16/1981 Pap Smear 02/16/1981 DTaP/Tdap/Td Vaccines (1 - Tdap) 02/16/1982 Mammogram 2000 Pneumococcal Vaccine (1 of 1 - PCV) 02/16/2010 Zoster Vaccines (1 of 2) 02/16/2010 COVID-19 Vaccine ( - 2023-2 5 season) 2024 Influenza Vaccine (Season Ended) 2025 RSV High Risk: (Elderly (60+ ) or Population) (1 - 1-dose 75+ series) 02/16/2035 HIB Vaccines Aged Out No longer eligi ble based on patient's age to complete this topic HPV Vaccines Aged Out No longer eligi ble based on patient's age to complete this topic Hepatitis A Vaccines Aged Out No long er eligible based on patient's age to complete this topic Hepatitis B Vaccines Aged Out No long er eligible based on patient's age to complete this topic IPV Vaccines Aged Out No longer eligi ble based on patient's age to complete this topic Meningococcal Vaccine Aged Out No bret abdoulaye eligible based on patient's age to complete this topic Rotavirus Vaccines Aged Out No longer eligible based on patient's age to complete this topic
--- OUTSIDE RECORDS SUMMARY | 2024-12-09 09:26 | XMS_ITS | Clinical Summary ---
Author Organization [facility] Address [address] [place] [address] Care Team Providers Care Recreation Program Coordinator Name Role Phone Gus Herr MD Primary Care Provider [phone] Allergies No known active allergies Medications simvastatin (ZOCOR) 20 MG tablet 1 tablet 4 Active meloxicam (MOBIC) 15 MG tablet Take 1 tablet by mouth daily Active Carbonyl Iron (IRON CHEWS PEDIATRIC) 15 MG CHEW Take by mouth 4 Active Aspirin 81 MG CAPS Take 81 mg by mouth 4 Active pantoprazole (PROTONIX) 40 MG tablet Take 1 tablet by mouth daily Active metoprolol tartrate (LOPRESSOR) 50 MG tablet TAKE 1 TABLET BY MOUTH TWICE A DAY WITH FOOD FOR 30 DAYS Active clindamycin (CLEOCIN) 2 % vaginal cream Place vaginally nightly. For 3 nights. 1 each 4 Active Family History Medical History Relation Name Comments Cancer Father lung Heart Disease Mother Relation Name Status Comments Brother 1 Alive Brother 2 Alive Brother 3 Father Alive Maternal Grandfather Maternal Grandmother Mother Alive Paternal Grandfather Paternal Grandmother Sister Alive Social History Tobacco Use Types Packs/Day Years Used Date Smoking Tobacco: Never Smokeless Tobacco: Never Tobacco Cessation:Counseling Given: Not Answered Alcohol Use Standard Drinks/Week Comments Yes 0 [...] place to sleep or slept in a penitentiary (including now)? No 11/29/2023 Food Insecurity Answer [...] Sign Reading Time Taken Comments Blood Pressure 136/86 11/29/2023 10:58 AM EDT Pulse - - Temperature - - Respiratory Rate - - Oxygen Saturation - - Inhaled Oxygen Concentration - - Weight 95.3 kg (210 lb) 11/29/2023 10:58 AM EDT Height 165.1 cm (5' 5 ) 11/29/2023 10:58 AM EDT Body Mass Index 34.95 11/29/2023 10:58 AM EDT Plan of Treatment Health Maintenance Due Date Last Done Comments Lipids 02/16/1970 HIV screen 02/16/1975 Hepatitis C screen 02/16/1978 DTaP/Tdap/Td vaccine (1 - Tdap) 02/16/1979 Colonoscopy 02/16/2005 Colorectal Cancer Screen 02/16/2005 FIT/FOBT: Average risk 02/16/2005 Fecal-DNA (Cologuard): Average risk 02/16/2005 Sigmoidoscopy/CT colonography 02/16/2005 Pneumococcal 50+ years Vaccine (1 of 1 - PCV) 02/16/2010 Shingles vaccine (1 of 2) 02/16/2010 Breast cancer screen 12/13/2017 12/14/2015, 11/16/2014, 09/09/2013 COVID-19 Vaccine (2 - season) 2024 08/23/2020 Depression Screen 11/28/2024 11/29/2023 Flu vaccine (Season Ended) 01/16/202503/30, 04/11/2021, 03/01/2020, Additional history exists Pap smear 11/28/2026 11/29/2023 Cervical cancer screen 11/28/2028 HPV (without or with Pap) 11/28/2028 11/29/2023 Respiratory Syncytial Virus (RSV) or age 60 yrs+ (1 - 1-dose 75+ series) 02/16/2035 Hepatitis A vaccine Aged Out No longe r eligible based on patient's age to complete this topic Hepatitis B vaccine Aged Out No longe r eligible based on patient's age to complete this topic Hib vaccine Aged Out No longer eligi ble based on patient's age to complete this topic Meningococcal (ACWY) vaccine Aged Out No longer eligible based on patient's age to complete this topic Meningococcal B vaccine Aged Out No l onger eligible based on patient's age to complete this topic Polio vaccine Aged Out No longer elig ible based on patient's age to complete this topic Procedures Procedure Name Priority Date/Time Associated Diagnosis Comments HUMAN PAPILLOMAVIRUS (HPV) DNA PROBE THIN PREP HIGH RISK Routine 11/29/2023 12:00 AM EDT WATERSHED PROGRAM MANAGER CYTOLOGY Routine 11/29/2023 12:00 AM EDT [facility] DIGITAL SCREEN W OR WO CAD BILATERAL Routine 12/14/2015 5:32 PM EDT Screening from Last 3 Months or Most Recently Relevant to Health Maintenance Results * Human papillomavirus (HPV) DNA probe thin prep high risk (11/29/2023 12:00 AM EDT) Specimen Description CERVICAL MATERIAL 11/29/2023 12:00 AM EDT [facility] HPV Sample .THIN PREP 11/29/2023 12:00 AM EDT [facility] HPV, Genotype 16 Not Detected Not Detected 11/29/2023 12:00 AM EDT [facility] HPV, Genotype 18 Not Detected Not Detected 11/29/2023 12:00 AM EDT [facility] HPV, High Risk Other Not Detected Not Detected 11/29/2023 12:00 AM EDT [facility] HPV, Interpretation 11/29/2023 12:00 AM EDT [facility] Comment: This test amplifies and detects DNA [...] sexual abuse or for other forensic purposes. CERVICAL MATERIAL 11/29/2023 Augustina Yoo ENERGY MANAGEMENT SPECIALIST - CN HEMATOLOGY ORDER LENNOX Final Result [facility] [address] [place] [address], [facility] [phone] [place] [address] [place] [address], [facility] [phone] * WATERSHED PROGRAM MANAGER Cytology (11/29/2023 12:00 AM EDT) Cytology Report Path Number: [id number] DIAGNOSIS Imaged ThinPrep Pap - Cervical (1 monolayer slide): Specimen Adequacy: Satisfactory for evaluation. - Endocervical/trans formation zone component present. Descriptive Diagnosis: Negative for [...] or for other forensic purposes. Performed at [address] [address] ([phone] Source of Specimen: A: Imaged ThinPrep Pap - Cervical (1 monolayer slide) HPV Reflex?........... ...........HPV Regardless Clinical History Postmenopausal Z12.4 Encounter for screening for malignant neoplasm of cervix Processing Lab: [address] [address] Interpretation performed at [address] [address] This Pap Test has been evaluated with [...] GYNECOLOGIC CYTOLOGY REPORT Patient Name: MICHELLE PRADO [facility] Rec: [id number] [employer] [facility] ANATOMIC PATHOLOGY [address] [place] [address]. [place], [place] [address] [facility] [employer] [facility] CERVICAL MATERIAL 11/29/2023 024 7:20 AM EDT Augustina Yoo ENERGY MANAGEMENT SPECIALIST - CNM PATHOLOGY/CYTOLO GY ORDERABLES Final Result [facility] [address] [phone] [facility] [employer] * ROSALIND Digital Screen Bilateral (12/14/2015 5:32 PM EDT) Anatomical Region Laterality Modality Breast Bilateral Mammography 12/14/2015 5:34 PM EDT Narrative 12/14/2015 6:12 PM EDT Bilateral digital screening mammograms with CAD. Reason for examination: Asymptomatic screening. Views: Bilateral CC, MLO views. In comparison with the studies of 06/29/2009, 09/09/2013, and 11/16/2014, there has been no significant interval change. There is heterogeneously dense fibroglandular tissue within the breasts, somewhat limiting mammographic evaluation. No discrete or spiculated mass lesion or suspicious calcifications are seen. Impression: No mammographic evidence of malignancy. Recommendation: Routine screening mammograms in one year would be appropriate for a patient in this age group. BI-RADS Category 1: Negative. Final report electronically signed by Luis Dillon on 12/14/2015 6:12 PM Procedure Note Luis Dillon MD - 12/14/2015 Bilateral digital screening mammograms with CAD. Reason for examination: Asymptomatic screening. Views: Bilateral CC, MLO views. In comparison with the studies of 06/29/2009, 09/09/2013, and 11/16/2014,there has been no significant interval change. There is heterogeneouslydense fibroglandular tissue within the breasts, somewhat limitingmammographic evaluation. No discrete or spiculated mass lesion or suspicious calcifications are seen. Impression: No mammographic evidence of malignancy. Recommendation: Routine screening mammograms in one year would beappropriate for a patient in this age group. BI-RADS Category 1: Negative. Final report electronically signed by Luis Dillon on 12/14/2015 6:12 PM Jordan Moreno IM MAMMOGRAPHY ORDERABLES Final Result from Last 3 Months or Most Recently Relevant to Health Maintenance Care Teams Recreation Program Coordinator Relationship Specialty Start Date End Date Gus Herr MD [address] [place] [address] PCP - General 09/02/13
--- OUTSIDE RECORDS SUMMARY | 2024-12-09 09:26 | XMS_ITS | Clinical Summary ---
Author Organization [facility] Address [facility] [place] [id number] Care Team Providers Care Bung Remover Name Role Phone Gus Herr MD Primary Care Provider [phone] Allergies No known active allergies Medications Dexlansoprazole (DEXILANT) 60 mg CpDM Take by mouth. 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 Overview (08/07/2017): Added automatically from request for surgery [id number] Immunizations Immunization Administration Dates Next Due influenza (IIV3) vaccine, tr ivalent (AFLURIA, FLULAVAL, FLUVIRIN, FLUZONE) 07/03/2017 Family History Medical History Relation Comments Cancer Maternal Grandmother Heart disease Mother Cancer Paternal Grandfather Relation Status Comments Maternal Grandmother Mother Paternal Grandfather Social History Tobacco Use Types Packs/Day Years Used Date Smoking Tobacco: Former Cigarettes 1 20 1 981 - 2000 Smokeless Tobacco: Never Tobacco Cessation:Counseling Given: No Alcohol Use Standard Drinks/Week Comments Yes 0 (1 standard drink = 0.6 oz pure alcohol) pt states drinks on the weekends Area Deprivation Index Answer Date Henry rded National Score (1-100), lower number is lower ri sk Not on file 05/27/2020 State Score (1-10), lower number is lower risk N ot on file 05/27/2020 Data from: https://www.neighborhoodatlas.medicine.[facility].edu/. 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 Not on file Not on file Not on file Last Filed Vital Signs Vital Sign Reading Time Taken Comments Blood Pressure 112/60 09/01/2017 10:43 AM EDT Pulse 60 09/01/2017 10:43 AM EDT Temperature 37 C (98.6 F) 09/01/2017 10:43 AM EDT Respiratory Rate 16 09/01/2017 10:43 AM EDT Oxygen Saturation 95% 09/01/2017 10:43 AM EDT Inhaled Oxygen Concentration - - Weight 83.9 kg (185 lb) 08/31/2017 6:13 AM EDT Height 165.1 cm (5' 5 ) 08/31/2017 6:13 AM EDT Body Mass Index 30.79 08/31/2017 6:13 AM EDT Plan of Treatment Health Maintenance Due Date Last Done Comments Anxiety Screening 02/16/1978 Depression Screening 02/16/1978 HIV Screening 02/16/1978 Hepatitis C Screening 02/16/1978 DTaP,Tdap,Td Vaccine (1 - Tdap) 02/16/1979 Cervical Cancer Screening 02/16/[address] Colonography 02/16/2005 Cologuard (FIT-DNA) 02/16/2005 Colonoscopy 02/16/2005 Colorectal Cancer Screening 02/16/2005 Diabetes Screening 02/16/2005 Fecal Occult Blood 02/16/2005 Lipid Screening 02/16/2005 Sigmoidoscopy 02/16/2005 Pneumococcal Vaccine: 50+ (1 of 1 - PCV) 02/16/2010 Shingrix Vaccine (1 of 2) 02/16/2010 Covid-19 Vaccine ( - 2023- season) 2024 Influenza Vaccine (Season Ended) 2025 07/03/19 18 RSV Vaccine (1 - 1-dose 75+ series) 02/16/2035 Insurance [facility] [address] [address] [employer] Care Teams Bung Remover Relationship Specialty Start Date End Date Gus Herr MD PCP - General Family Medicine 04/18/16
--- OUTSIDE RECORDS SUMMARY | 2024-12-09 09:26 | XMS_ITS | Encounter Summary ---
Author Organization [facility] Address [address] [facility] [place] [address] Care Team Providers Care Supervisor Rolling Room Name Role Phone Gus Herr MD Primary Care Provider [phone] Encounter Details Date Type Department Care Team (Latest Contact Info) Description 12/01/2024 Travel Social History Tobacco Use Types Packs/Day [...] [address] [place] [address] Natividad Gudino, MIGUEL 12/16/2024 1:30 PM EDT Office Visit [facility] [address] Luis Alfredo [facility] [place] [phone] Mack Delaney, DO [address] [place] [address] documented as of this encounter Visit Diagnoses Not on filedocumented in this encounter Care Teams Supervisor Rolling Room Relationship Specialty Start Date End Date Gus Herr MD [address] [facility] [place] [address] PCP - General Family Medicine 5/15/25 documented as of this encounter
--- OUTSIDE RECORDS SUMMARY | 2024-12-09 09:26 | XMS_ITS | Encounter Summary ---
Author Organization [facility] Address [id number] [address] [place] [address] Care Team Providers Care Textile Engineer Name Role Phone Unavailable Primary Care Provider Unavailabl e Encounter Details Date Type Department Care Team (Late st Contact Info) Description 12/26/2023 Orders Only [facility] [employer] [address] [place] [address] Transcribe, Orders Support User Pain Social History Tobacco Use Types Packs/Day Years Used Date Smoking Tobacco: Never Assessed Childcare Answer Date Recorded Childcare Unknown 11/27/2018 Employment Answer Date Recorded Employment Unknown 11/27/2018 Comments Unknown Sex and Gender Information Value Date Recorded Sex Assigned at Not on file Legal Sex Female 11:44 AM EDT Gender Identity Not on file Sexual Orientation Not on file documented as of this encounter Plan of Treatment Not on file documented as of this encounter Results * CT abdomen and pelvis with contrast (12/05/2023 4:55 PM EDT) us Scanning Provider External IMG CT ORDERABLES Fin al Result * Ultrasound transvaginal non OB (11/29/2023 10:30 AM EDT) us Scanning Provider External IMG US ORDERABLES Fin al Result documented in this encounter Visit Diagnoses Diagnosis Pain Generalized pain documented in this encounter
--- OUTSIDE RECORDS SUMMARY | 2024-12-09 09:26 | XMS_ITS | Encounter Summary ---
Author Organization [facility] Address [address] [place] [facility] [place] [address] Care Team Providers Care Mover Name Role Phone Gus Herr MD Primary Care Provider [phone] Encounter Details Date Type Department Care Team (Latest Contact Info) Description 11/25/2024 Travel Social History Tobacco Use Types Packs/Day [...] [address] [place] [address] Natividad Gudino, MIGUEL 12/16/2024 1:30 PM EDT Office Visit [facility] [address] Luis Alfredo [place] [id number] Mack Delaney, DO [address] [place] [address] documented as of this encounter Visit Diagnoses Not on filedocumented in this encounter Care Teams Mover Relationship Specialty Start Date End Date Gus Herr MD [address] [facility] [place] [address] PCP - General Family Medicine 5/15/25 documented as of this encounter
--- OUTSIDE RECORDS SUMMARY | 2024-12-09 09:27 | XMS_ITS | Clinical Summary ---
Author Organization [facility] Address [address] [place] [address] Care Team Providers Care Dispatcher Chief Coal Slurry Name Role Phone Gus Herr MD Primary Care Provider [phone] Allergies No known active allergies Medications metoprolol tartrate (Lopressor) 50 MG tablet Take 50 mg by mouth Active nitroglycerin (Nitrostat) 0.[address] 0.4 mg under the tongue 3 Active simvastatin (Zocor) 20 MG tablet Take 20 mg by mouth Active pantoprazole (ProtoNix) 40 MG EC tablet Take 40 mg by mouth Active ibuprofen 800 MG tablet 4 Active Carbonyl Iron 15 MG chewable tablet Chew 4 Active isosorbide mononitrate ER (Imdur) 30 MG 24 hr tablet Take 30 mg by mouth 4 Active meloxicam (Mobic) 15 MG tabletIndications:B ilateral primary osteoarthritis of knee Take 1 tablet (15 mg) by mouth Daily 30 tablet 11 5 10/21/19 26 Active oxyCODONE-acetamino phen (Percocet) 5-325 MG tabletIndications:P rimary osteoarthritis of right knee Take 1-2 tablets by mouth every 4 (four) hours if needed for severe pain for up to 5 days 50 tablet 5 12/02/19 25 Active Problems Problem Noted Date Diagnosed Date Primary osteoarthritis of right knee 11/19/2024 Acute postoperative pain of right knee 5 Status post right knee replacement 11/19/2024 Encounters Date Type Department Care Team Description 12/06/2024 Travel 12/05/2024 8:00 AM EDT Clinical Support [facility] [address] [place] [address] Jacklyn Trammell, PT Primary osteoarthritis of right knee (Primary Dx); Acute postoperative pain of right knee; Status post right knee replacement 12/04/2024 Travel 12/03/2024 8:00 AM EDT Clinical Support [facility] [address] [place] [address] [phone] Jacklyn Trammell, PT Primary osteoarthritis of right knee (Primary Dx); Acute postoperative pain of right knee; Status post right knee replacement 12/01/2024 8:00 AM EDT Clinical Support [facility] [address] [place] [address] Jacklyn Trammell, PT Primary osteoarthritis of right knee (Primary Dx); Acute postoperative pain of right knee; Status post right knee replacement 12/01/2024 Travel 11/28/2024 8:00 AM EDT Clinical Support [facility] [address] [place] [address] Jacklyn Trammell, PT Primary osteoarthritis of right knee (Primary Dx); Acute postoperative pain of right knee; Status post right knee replacement 11/27/2024 Travel 11/26/2024 8:00 AM EDT Clinical Support [facility] [address] [place] [address] [phone] Jacklyn Trammell, PT Primary osteoarthritis of right knee (Primary Dx); Acute postoperative pain of right knee; Status post right knee replacement 11/26/2024 Telephone [facility] [address] [facility] [place] [address] Mack Delaney, DO Pain Med Refill Request 11/25/2024 Travel 11/24/2024 1:50 PM EDT Clinical Support [facility] [address] [place] [address] Jacklyn Trammell, PT Primary osteoarthritis of right knee (Primary Dx); Acute postoperative pain of right knee; Status post right knee replacement 11/24/2024 Travel 11/22/2024 10:00 AM EDT Clinical Support [facility] [address] [place] [address] Jacklyn Trammell M, PT Primary osteoarthritis of right knee (Primary Dx); Acute postoperative pain of right knee; Status post right knee replacement 11/20/2024 9:00 AM EDT Clinical Support [facility] [address] [place] [address] Jacklyn Trammell M, PT Primary osteoarthritis of right knee (Primary Dx); Acute postoperative pain of right knee; Status post right knee replacement 11/20/2024 Travel 11/19/2024 Plan of Care Documentation [facility] [address] [place] [address] 11/18/2024 11:15 AM EDT Clinical Support [facility] [address] [place] [address] Jacklny Trammell M, PT Primary osteoarthritis of right knee (Primary Dx); Acute postoperative pain of right knee; Status post right knee replacement; Aftercare following right knee joint replacement surgery 11/18/2024 Telephone [facility] [address] [place] [address] Mack Delaney, DO Ortho [address] 11/17/2024 Clinisync Result Encounter [facility] External Department Unsolicited Mack Delaney, DO 11/14/2024 Orders Only [facility] [address] [facility] [place] [address] Mack Delaney, DO Aftercare following right knee joint replacement surgery (Primary Dx) 11/13/2024 Telephone [facility] [address] [place] [address] Mack Delaney, DO Pre-Surgery Check In 11/12/2024 10:00 AM EDT Evaluation [facility] [address] [place] [id number] Diaz Mcclure, PT Primary osteoarthritis of right knee (Primary Dx) 11/12/2024 Plan of Care Documentation [facility] [address] [facility] [address] [place] [id number] 11/12/2024 Bamboo flowsheet [facility] [address] [place] [address] Diaz Mcclure, PT 11/12/2024 Travel 11/07/2024 Telephone [facility] [address] [place] [address] Lyla Cisse RN 10/31/2024 Clinisync Result Encounter [facility] External Department Unsolicited Mack Delaney, DO 10/30/2024 11:40 AM EDT Ancillary Procedure [facility] [address] [place] [address] 10/30/2024 10:00 AM EDT Office Visit [facility] [address] [place] [address] Mack Delaney, DO Pre-op testing (Primary Dx); Bilateral primary osteoarthritis of knee 10/30/2024 Bamboo flowsheet [facility] [address] [facility] [place] [address] Mack Delaney, DO 10/30/2024 Travel 10/20/2024 Telephone [facility] [address] [place] [address] Lyla Cisse, KAMRYN from Last 3 Months Social History Tobacco Use Types Packs/Day Years Used Date Smoking Tobacco: Former Cigarettes Q uit: 2000 Smokeless Tobacco: Never Comments Unknown Sex and Gender Information Value Date Recorded Sex Assigned at Not on file Legal Sex Female 7:01 PM EDT Gender Identity Not on file Sexual Orientation Not on file Last Filed Vital Signs Vital Sign Reading Time Taken Comments Blood Pressure - - Pulse - - Temperature 36.4 C (97.6 F) 09/06/2023 1:15 PM EDT Respiratory Rate - - Oxygen Saturation - - Inhaled Oxygen Concentration - - Weight 99.3 kg (219 lb) 10/30/2024 10:30 AM EDT Height 165.1 cm (5' 5 ) 10/30/2024 10:30 AM EDT Body Mass Index 36.44 10/30/2024 10:30 AM EDT Plan of Treatment Upcoming Encounters Date Type Department Care Team (Late st Contact Info) Description 12/10/2024 9:00 AM EDT Treatment [facility] [address] [place] [address] Natividad Gudino, PT 12/16/2024 1:30 PM EDT Office Visit [facility] [address] [place] [place] [address] Mack Delaney, [address] [place] [address] Health Maintenance Due Date Last Done Comments CT Colonography 1960 FIT-DNA 1960 FIT 1960 FOBT 1960 Sigmoidoscopy 1960 Mammogram 12/13/2016 12/14/2015, 11/17, 11/16/2014, Additional history exists Pap Smear 11/28/2026 11/29/2023, 11/29/2023 Cervical Cancer Screening 11/28/2028 HPV/Cotest 11/28/2028 11/29/2023, 11/29/2023 Colonoscopy 05/12/2034 05/12/2024 Colorectal Cancer Screening 05/12/2034 Influenza Vaccine Completed 03/29/2024, , 04/11/2021, Additional history exists Procedures Procedure Name Priority Date/Time Associated Diagnosis Comments XR KNEE 1 OR 2 VIEWS RIGHT 11/17/2024 12:37 PM EDT UA WITH CULT RFLX Routine 10/31/2024 3:0 0 PM EDT XR KNEE 3 VIEWS RIGHT Routine 10/30/2024 11:39 AM EDT Bilateral primary osteoarthritis of knee from Last 3 Months Results * XR KNEE 1 OR 2 VIEWS RIGHT (11/17/2024 12:37 PM EDT) Anatomical Region Laterality Modality Other 11/17/2024 12:3 7 PM EDT Narrative 11/19/2024 11:43 AM EDT Exam Date/Time: 11/17/2024 12:46 EDT Reason for Exam: Post-op evaluation;Other (please specify) Report IMPRESSION: UNREMARKABLE RECENT RIGHT TOTAL KNEE ARTHROPLASTY PLACEMENT. EXAM: XR Knee 1 or 2 Views Right DATE: 11/17/2024 12:37 PM CLINICAL HISTORY: Post-op evaluation. COMPARISON: 10/30/2024. TECHNIQUE: Portable AP and cross table lateral radiographs of the right knee were obtained. FINDINGS: A right total knee arthroplasty has been placed in expected position. There is no evidence of hardware loosening, periprosthetic fracture, or other findings of concern identified. Skin lo and soft tissue emphysema are noted from recent placement. Ordering Provider: Mack Delaney FINAL REPORT Dictated: 11/19/2024 11:40 am Nadir Marte MD Signed (Electronic Signature): 11/19/2024 11:40 am Signed by: Nadir Marte MD Transcribed by: VEDA Technologist: RAUL Procedure Note Radiology, Radiologist, - 11/19/2024 Exam Date/Time: 11/17/2024 12:46 EDT Reason for Exam: Post-op evaluation;Other (please specify) Report IMPRESSION: UNREMARKABLE RECENT RIGHT TOTAL KNEE ARTHROPLASTYPLACEMENT. EXAM: XR Knee 1 or 2 Views Right DATE: 11/17/2024 12:37 PM CLINICAL HISTORY: Post-op evaluation. COMPARISON: 10/30/2024. TECHNIQUE: Portable AP and cross table lateral radiographs of the rightknee were obtained. FINDINGS: A right total knee arthroplasty has been placed in expected position. There is no evidence of hardware loosening, periprosthetic fracture, orother findings of concern identified. Skin ol and soft tissue emphysema are noted from recent placement. Ordering Provider: Mack Delaney FINAL REPORT Dictated: 11/19/2024 11:40 am Nadir Marte MD Signed (Electronic Signature): 11/19/2024 11:40 am Signed by: Nadir Marte MD Transcribed by: VEDA Technologist: DPR us Mack Delaney DO [facility] Final Resu lt * UA WITH CULT RFLX (10/31/2024 3:00 PM EDT) [facility] CLASS:TYPE:PT: URINE COLLECTION METHOD:NOM:* Clean Catch [facility] COLOR:TYPE:PT: URINE:NOM:AUTO Light-Yellow Yellow [facility] Comment:Microscopic readings are only performed on those samples that meet specific criteria set forth by [facility]. [facility] CLARITY:TYPE:P T:URINE:NOM: Clear Clear [facility] SPECIFIC GRAVITY:RDEN:P T:URINE:QN:LINDA T STRIP 1.022 1.005 - 1.030 [facility] PH:LSCNC:PT:UR INE:QN:TEST STRIP 5.0 5.0 - 9.0 [facility] PROTEIN:PRTHR: PT:URINE:ORD:T EST STRIP Negative Negative mg/dL [facility] GLUCOSE:PRTHR: PT:URINE:ORD:T EST STRIP Negative Negative mg/dL [facility] KETONES:PRTHR: PT:URINE:ORD:T EST STRIP.AUTOMATE D Negative Negative mg/dL [facility] BILIRUBIN:PRTH R:PT:URINE:ORD :TEST STRIP.AUTOMATE D Negative Negative mg/dL [facility] HEMOGLOBIN:MCN C:PT:URINE:SAM IQN:TEST STRIP.AUTOMATE D Negative Negative mg/dL [facility] NITRITE:PRTHR: PT:URINE:ORD:T EST STRIP.AUTOMATE D Negative Negative mg/dL [facility] UROBILINOGEN:M CNC:PT:URINE:S EMIQN:TEST STRIP Negative Negative mg/dL [facility] LEUKOCYTE ESTERASE:PRTHR :PT:URINE:ORD: TEST STRIP.AUTOMATE D Negative Negative CD:[id number] [facility] Urine 10/31/2024 3:00 PM EDT 10/31/2024 4:27 PM EDT Narrative [facility] - 10/31/2024 4:33 PM EDT Original Ordering Provider: DO Mack Delaney us Mack Delaney DO LAB BLOOD ORDERABLES Final R esult [facility] * XR knee 3 views right (10/30/2024 11:39 AM EDT) Anatomical Region Laterality Modality Lower Extremities, Knee Right Radiogra phic Imaging Narrative 11/03/2024 3:34 PM EDT Imaging Result: X-rays, permanently saved to the patient's record, are reviewed bilateral knees AP, lateral and sunrise views weight bearing films show end stage degenerative changes of the medial and patellofemoral joint with varus deformity. This is grade IV in nature. There is no fracture, dislocation, tumor or infection seen. us Mack Delaney DO IMG XR PROCEDURES Final Resu lt from Last 3 Months Insurance [facility] Care Teams Dispatcher Chief Coal Slurry Relationship Specialty Start Date End Date Gus Herr MD [address] [place] [phone] PCP - General Family Medicine 10/30/24
--- NOTE | 2024-12-09 09:28 | MM_ITS ---
Patient Name: RITA PRADO MR#: [id number] : 1960 Exam Date: 12/09/2024 Ordering Doctor: DR MAGGIE BALDWIN . RADIOLOGY REPORT PROCEDURE: MM TOMOSYNTHESIS SCREENING BI COMPARISON: MM TOMOSYNTHESIS SCREENING BI, 11/15/2023. MG MAMM SCREEN 3D SHELIA CAD, 10/17/2022. MG MAMM SCREEN 3D SHELIA CAD, 04/28/2021. MG MAMM SCREEN SHELIA W CAD, 06/29/2009. INDICATIONS: Screening Calculator Name NCI Breast Cancer Risk Assessment Tool 5 Year Breast Cancer Risk 1.20% Lifetime Breast Cancer Risk 4.70% Personal Breast Cancer No Personal Ovarian Cancer No Treatments None Family Cancers Grandmother-maternal with leukemia cancer at age ~50; Uncle-maternal with prostate cancer at age ~70; Grandfather-paternal with unknown cancer at age ~80. LOCATION: [facility] BREAST COMPOSITION: There are scattered areas of fibroglandular density. FINDINGS: RIGHT BREAST: No significant suspicious finding. LEFT BREAST: No significant suspicious finding. Benign-appearing lymph nodes are noted along the chest wall. There is a similar focal asymmetry on the left. DIAGNOSTIC CATEGORY 2--BENIGN FINDING: RECOMMENDATIONS: ROUTINE MAMMOGRAM AND CLINICAL EVALUATION IN 12 MONTHS. PLEASE NOTE: A NORMAL MAMMOGRAM DOES NOT EXCLUDE THE POSSIBILITY OF BREAST CANCER. A CLINICALLY SUSPICIOUS PALPABLE LUMP SHOULD BE BIOPSIED. Dictated by: Frandy Bush MD on 12/09/2024 at 11:57 Approved by: Frandy Bush MD on 12/09/2024 at 12:00
--- OUTSIDE RECORDS SUMMARY | 2024-12-09 09:47 | XMS_ITS | CCD ---
Author Organization [facility] Care Team Providers Care Non Destructive Testing Technician Name Role Phone HARSHILY ., DR SERRANO Consulting Unavailable HOY ., DR SERRANO Primary Care Unavailable HOY ., DR SERRANO Admitting Unavailable HOY ., DR SERRANO Attending Unavailable DOVER, DR KRISSY Gallardo Consulting Unavailable HOY ., DR SERRANO Admitting Unavailable HOY ., DR SERRANO Attending Unavailable HOY ., DR SERRANO Consulting Unavailable HOY ., DR SERRANO Primary Care Unavailable [facility] DR ANOOP Clinton Consulting Unavailable HOY ., [...] Unavailable HOY ., DR SERRANO Attending Unavailable Maggie Baldwin Primary Care Physician [phone] MAGGIE BALDWIN Primary Care Unavailable EMILY YOO Referring Unavailabl e HOYMAGGIE M Primary Care Unavailable GALATHERESA E Referring Unavailable HOYDOMENICAMAGGIE M Primary Care Unavailable GALA, THERESA E Referring Unavailable EMILY YOO Referring Unavailabl e HARSHILYMAGGIE M Primary Care Unavailable EMILY YOO Attending Unavailabl EMILY De Jesus Referring Unavailabl e HOY, MAGGIE M Primary Care Unavailable GALA, THERESA E Referring Unavailable HOY, MAGGIE M Primary Care Unavailable HOY, MAGGIE M Primary Care Unavailable GALA, THERESA E Referring Unavailable HOY, MAGGIE M Primary Care Unavailable EMILY YOO Attending Unavailabl e YOO, EMILY KING Referring Unavailabl e HOY, MAGGIE M Primary Care Unavailable GALA, THERESA E Referring Unavailable GALA, THERESA E Referring Unavailable HOY, MAGGIE M Primary Care Unavailable HOY, MAGGIE M Primary Care Unavailable GALA, THERESA E Referring Unavailable HOY, MAGGIE M Primary Care Unavailable GALA, THERESA E Referring Unavailable FITO HILL Attending Unavailable HOY, MAGGIE M Referring Unavailable Maggie Baldwin MD Primary Care Provider [phone] Maggie Baldwin MD Primary Care Provider [phone] Unavailable Primary Care Provider UnavailMaggie Jaquez MD Primary Care Provider [phone] Steve Duarte Admitting Unavailable Duarte, Steve Ayala Attending Unavailable Duarte, Steve Ayala Referring Unavailable NILL, Steve Clinton Attending Unavailable HoyMaggie Referring Unavailable NILL, Steve Clinton Admitting Unavailable NILL, Steve Clinton Attending Unavailable NILL, Steve Clinton Referring Unavailable Duarte, Steve Ayala Referring Unavailable Duarte, Steve Ayala Admitting Unavailable Duarte, Steve Ayala Attending Unavailable Duarte, Steve Ayala Attending Unavailable Duarte, Steve Ayala Referring Unavailable Duarte, Steve Ayala Admitting Unavailable Duarte, Steve yAala Referring Unavailable Duarte, Steve Ayala Attending Unavailable Duarte, Steve Ayala Admitting Unavailable DUARTE, STEVE Ayala Attending Unavailable DUARTE, STEVE Ayala Referring Unavailable MADISON PEARSON Attending Unavailable DUARTE, STEVE Ayala Referring Unavailable BRISCOECIERRA Attending Unavailable DUARTE, STEVE Ayala Referring Unavailable BRISCOE, CIERRA Almanza Attending Unavailable DUARTE, STEVE Ayala Referring Unavailable BRISCOE, CIERRA Almanza Attending Unavailable DUARTE, STEVE Ayala Referring Unavailable BRISCOE, CIERRA Almanza Attending Unavailable UDARTE, STEVE Ayala Referring Unavailable BRISCOE, CIERRA Almanza Attending Unavailable DUARTE, STEVE Ayala Referring Unavailable BRISCOE, CIERRA Almanza Attending Unavailable DUARTE, STEVE Ayala Referring Unavailable BRISCOE, CIERRA Almanza Attending Unavailable DUARTE, STEVE Ayala Referring Unavailable BRISCOE, CIERRA Almanza Attending Unavailable DUARTE, STEVE Ayala Referring Unavailable DUARTE, STEVE Ayala Referring Unavailable DUARTE, STEVE Ayala Attending Unavailable DUARTE, STEVE Ayala Referring Unavailable DUARTE, STEVE Ayala Attending Unavailable DUARTE, STEVE Ayala Referring Unavailable DUARTE, STEVE Ayala Attending Unavailable DUARTE, STEVE Ayala Referring Unavailable Allergies Allergy Classification Reported Allergen(s) Allergy Type Date of Onset Reaction(s) Facility (3 sources) No Known Medication Allergies; Translations: [No Known Medication Allergies] Propensity to adverse reactions (disorder) [facility] Repository Medications Current Medications Medication Drug Class(es) Dates Sig (Normalized) Sig (Original) acetaminophen 325 mg / oxyCODONE hydrochloride 5 mg oral tablet (3 sources) Opioid Agonist Start: 11-26-2024 End: 12-01-2024 take 1-2 tablets by mouth every four hours for pain oxyCODONE-acetaminop hen (Percocet) 5-325 MG tablet Indications: Primary osteoarthritis of right knee Take 1-2 tablets by mouth every 4 (four) hours if needed for severe pain for up to 5 days 50 tablet 11/26/2024 12/01/2024 Active Start: 11-11-2024 Percocet 5 mg- 325 mg oral tablet See Instructions, 50 tab(s), Refill(s) 0, Take one to two oral every 4 hours as needed for surgical pain., [facility]pharm[facility] #[id number], 166.5, cm, 11/03/24 7:43:00 EDT, Height/Length Dosing, 100.6, kg, 11/03/24 7:43:00 EDT, Weight Dosing Start Date: 11/11/24 Status: Ordered Quantity: 50.0 Unit: tab(s) Repeat number: 1 Indications: Unilateral post-traumatic osteoarthritis, right knee; aspirin 325 mg delayed release oral tablet (20 sources) Platelet Aggregation Inhibitor, Nonsteroidal Anti-inflammatory Drug Start: 04-08-2024 take 1 tablet by mouth once daily aspirin 325 mg Oral EC Tab 325 mg = 1 tab(s), Oral, Daily, Refills(s) 0, Prophylaxis Start Date: 04/08/24 Status: Ordered Repeat number: 1 Start: 10-23-2023 take 1 capsule by mo uth every twenty-four hours aspirin 81 mg oral capsule 81 mg = 1 cap(s), Oral, q24hr Start Date: 10/23/23 Status: Ordered Start: 10-23-2023 Aspirin 81 MG CAPS Take 81 mg by mouth 10/23/2023 Active End: 10-30-2024 take 1 tablet by mouth once daily aspirin 325 MG table t Take 325 mg by mouth 1 (one) time each day at the same time 10/30/2024 Discontinued (Therapy completed) clindamycin 20 mg/ml vaginal cream (4 sources) Lincosamide Antibacterial Start: 12-17-2023 clindamycin (CLEOCIN) 2 % vaginal cream Place vaginally nightly. For 3 nights. 1 each 12/17/2023 Active docusate sodium 100 mg oral capsule (1 source) Start: 11-11-2024 take 1 capsule by mouth twice daily Colace 100 mg Cap 100 mg = 1 cap(s), Oral, BID, # 20 cap(s), Refills(s) 0, Pharmacy: [facility]/pharm[facility] #[id number], 166.5, cm, 11/03/24 7:43:00 EDT, Height/Length Dosing, 100.6, kg, 11/03/24 7:43:00 EDT, Weight Dosing Start Date: 11/11/24 Status: Ordered Quantity: 20.0 Unit: cap(s) Repeat number: 1 ferrous sulfate 325 mg oral tablet (4 sources) Start: 04-30-2024 take 1 tablet by mouth once daily ferrous sulfate 325 mg Tab 325 mg = 1 tab(s), Oral, Daily, Refills(s) 0, Prophylaxis Start Date: 04/30/24 Status: Ordered Repeat number: 1 ibuprofen 800 mg oral tablet (20 sources) Nonsteroidal Anti-inflammatory Drug Start: 06-28-2023 ibuprofen 800 MG tablet 06/28/2023 Active iron carbonyl 15 mg chewable tablet (20 sources) Start: 10-23-2023 Carbonyl Iron 15 MG chewable tablet Chew 10/23/2023 Active Iron Chews (2 sources) Start: 10-23-2023 take 1 mg by mouth once daily Iron Chews mg, Oral, Daily Start Date: 10/23/23 Status: Ordered 24 hr isosorbide mononitrate 30 mg extended release oral tablet (20 sources) Nitrate Vasodilator Start: 04-08-2024 isosorbide mononitrate ER (Imdur) 30 MG 24 hr tablet Take 30 mg by mouth 04/08/2024 Active meloxicam 15 mg oral tablet (20 sources) Nonsteroidal Anti-inflammatory Drug Start: 08-23-2023 End: 10-20-2025 take 1 tablet by mouth once daily meloxicam (Mobic) 15 MG tablet Indications: Bilateral primary osteoarthritis of knee Take 1 tablet (15 mg) by mouth Daily 30 tablet 10/20/2024 10/20/2025 Active metoprolol tartrate 50 mg oral tablet (20 sources) beta-Adrenergic Mark Start: 10-23-2023 Metoprolol tartrate 50 mg Tab 50 mg = 1 tab(s) Start Date: 10/23/23 Status: Ordered Start: 10-23-2023 take 1 tablet by priscilla th twice daily Metoprolol tartrate 50 mg Tab 50 mg = 1 tab(s), Oral, BID, High blood pressure Start Date: 10/23/23 Status: Ordered Repeat number: 1 nitroglycerin 0.4 mg sublingual tablet (20 sources) Nitrate Vasodilator Start: 04-26-2023 nitroglycerin (Nitrostat) 0.[address] 0.4 mg under the tongue 04/26/2023 Active pantoprazole 40 mg delayed release oral tablet (20 sources) Proton Pump Inhibitor Start: 10-23-2023 take 1 tablet by mouth once daily Pantoprazole [address] Tab 40 mg = 1 tab(s), Oral, Daily Start Date: 10/31/24 Status: Ordered Repeat number: 1 simvastatin 20 mg oral tablet (20 sources) HMG-CoA Reductase Inhibitor Start: 10-23-2023 take 1 tablet by mouth once daily in the evening simvastatin 20 mg Tab 20 mg = 1 tab(s), Oral, qPM, High cholesterol Start Date: 10/23/23 Status: Ordered Repeat number: 1 Completed/Discontinued Medications Medication Drug Class(es) Dates Sig (Normalized) Sig (Original) 2 ml sodium hyaluronate 8.4 mg/ml prefilled syringe (16 sources) Start: 06-03-2024 End: 06-03-2024 sodium hyaluronate (Gelsyn-3) injection 2 mL Start: 06-03-2024 End: 06-03-2024 2 mL, Intra-articular, Once PRN Procedure, Starting on Sun06/03/24 at 1345, For 1 dose Start: 05-27-2024 End: 05-27-2024 sodium hyaluronate (Gelsyn-3 ) injection 2 mL Start: 05-27-2024 End: 05-27-2024 2 mL, Intra-articular, Once PRN Procedure, Starting on Sun05/27/24 at 1355, For 1 dose Start: 05-20-2024 End: 05-20-2024 sodium hyaluronate (Gelsyn-3 ) injection 2 mL Start: 05-20-2024 End: 05-20-2024 2 mL, Intra-articular, Once PRN Procedure, Starting on Sun05/20/24 at 1425, For 1 dose Problems Active Problems Problem Classification Problem Date Documented Da te Episodic/Chronic Abdominal pain (11 sources) Abdominal pain; Translations: [Unspecified abdominal pain] Onset: 4 Episodic Benign neoplasm of uterus (4 sources) Uterine leiomyoma 04-08-2024 Episodic Disorders of lipid metabolism (8 sources) Hyperlipidemia; Translations: [Hypercholesterolemia] 10-23-2023 Chronic Diverticulosis and diverticulitis (1 source) Diverticula of intestine; Translations: [Diverticulosis of large intestine without perforation or abscess without bleeding] Onset: 4 Chronic Esophageal disorders (4 sources) Gastroesophageal reflux disease 04-08-2024 Chronic Essential hypertension (6 sources) Hypertensive disorder 10-23-2023 Chronic Genitourinary symptoms and ill-defined conditions (14 sources) Increased frequency of urination; Translations: [Frequency of micturition] Onset: 4 Episodic Headache; including migraine (4 sources) Migraine 04-08-2024 Chronic Nutritional deficiencies (4 sources) Vitamin D deficiency 04-08-2024 Chronic Osteoarthritis (20 sources) Primary gonarthrosis, bilateral; Translations: [Bilateral primary osteoarthritis of knee] Onset: 5 05-20-2024 Chronic Other bone disease and musculoskeletal deformities (2 sources) Disorder of bone, unspecified; Translations: [Disorder of bone, unspecified] Onset: 4 Episodic Other connective tissue disease (18 sources) History of total knee arthroplasty; Translations: [Presence of right artificial knee joint] Onset: 5 11-19-2024 Chronic Other diseases of bladder and urethra (7 sources) Urethral stricture; Translations: [Other urethral stricture, female] Onset: 4 Episodic Other endocrine disorders (4 sources) Adrenal gland hematoma Onset: 3 04-08-2024 Chronic Other female genital disorders (1 source) Noninflammatory disorder of the vagina; Translations: [Other specified noninflammatory disorders of vagina] Onset: 4 Episodic Other female genital disorders (2 sources) Vaginal odor 10-23-2023 Episodic Other female genital disorders (1 source) Other specified conditions associated with female genital organs and menstrual cycle; Translations: [Other specified conditions associated with female genital organs and menstrual cycle] Onset: 4 Episodic Other gastrointestinal disorders (1 source) Abnormal feces; Translations: [Other fecal abnormalities] Onset: 4 Episodic Other gastrointestinal disorders (8 sources) Occult blood in stools 04-08-2024 Episodic Other nervous system disorders (18 sources) Other acute postprocedural pain; Translations: [Pain in joint, lower leg] Onset: 5 11-19-2024 Episodic Other nutritional; endocrine; and metabolic disorders (4 sources) Body mass index 30+ - obesity 04-30-2024 Chronic Other nutritional; endocrine; and metabolic disorders (4 sources) Obese class III 04-08-2024 Chronic Residual codes; unclassified (1 source) Family history of leukemia; Translations: [FAMILY HISTORY OF LEUKEMIA] Onset: 3 Episodic Residual codes; unclassified (1 source) Family history of malignant neoplasm of prostate; Translations: [FAMILY HX MALIG NEOPLASM PROSTATE] Onset: 3 Episodic Residual codes; unclassified (1 source) Family history of malignant neoplasm, unspecified; Translations: [FAM HX MALIGNANT NEOPLASM UNS] Onset: 3 Episodic Screening and history of mental health and substance abuse codes (7 sources) H/O: Disorder; Translations: [Personal history of nicotine dependence] Onset: 4 Episodic Unclassified (3 sources) CONTACT W/AND (SUSP) EXPOS COVID-19; Translations: [CONTACT W/AND (SUSP) EXPOS COVID-19] Onset: 2 Unclassified (1 source) COUGH, UNSPECIFIED; Translations: [COUGH, UNSPECIFIED] Onset: 2 Unclassified (1 source) Circulatory Problem Onset: 4 Past or Other Problems Problem Classification Problem Date Documented Da te Episodic/Chronic Inflammatory diseases of female pelvic organs (1 source) Subacute and chronic vaginitis; Translations: [Subacute and chronic vaginitis] Onset: 11-29-2023 Episodic Other connective tissue disease (4 sources) Pain in right foot; Translations: [PAIN IN RIGHT FOOT] Onset: 11-30-2021 Episodic Other female genital disorders (1 source) Pelvic congestion syndrome; Translations: [Other specified conditions associated with female genital organs and menstrual cycle] 03-31-2024 Episodic Other screening for suspected conditions (not mental disorders or infectious disease) (5 sources) Encounter for screening mammogram for malignant neoplasm of breast; Translations: [Encounter for screening for malignant neoplasm of cervix] Onset: 10-17-2022 Episodic Other skin disorders (4 sources) Mass of parotid gland Onset: 08-07-2017 04-08-2024 Episodic Other upper respiratory disease (1 source) Nasal congestion; Translations: [NASAL CONGESTION] Onset: 05-29-2022 Episodic Residual codes; unclassified (1 source) Pain, unspecified; Translations: [Pain, unspecified] Onset: 12-26-2023 Episodic Unclassified (1 source) CONTACT W/AND (SUSP) EXPOS COVID-19; Translations: [CONTACT W/AND (SUSP) EXPOS COVID-19] Onset: 05-25-2022 Results Test Name Value Interpretation Reference Range Facility Surgical Pathology Reporton 11-20-2024 [place] [address]- Surgical Pathology Report Collected Date/Time: 11/17/2024 10:15 EDT Pathologist: Ever BATES PhD, Estrella Harris Received Date/Time: 11/17/2024 13:48 EDT Elaina CISNEROS, Steve Duarte DO, Steve Goldstein Surgical Pathology Report - 11/20/2024 16:11 EDT - Auth (Verified) Final Diagnosis RIGHT KNEE BONE AND SOFT TISSUE, ARTHROPLASTY: DEGENERATIVE OSTEOARTHRITIS (Electronic Signature) Franklin Stout MD 11/20/2024 16:11 Clinical Information Right knee OA Pre-Op Diagnosis: Right knee OA Procedure: Right total knee arthroplasty Post-Op Diagnosis: 1. Right knee endstage osteoarthritis with antalgic gait 2. Failure of conservative injection care 3. Grade 4 findings on preoperative x-ray Specimen(s) Received Right knee- bone and soft tissue Gross Description Received in formalin labeled with patient name, number, and right knee bone and soft tissue are multiple fragments of mancini/pink/whitish bone, cartilage, and soft tissue measuring in aggregate 9 x 8 x 7 cm. Articular surface is eburnated. Cross-section reveals no other discrete mass. Quality Assurance Project Manager sections are submitted in two cassettes. A2 is decalcified. (YC) YL:[facility] Microscopic Description Microscopic examination performed unless gross only specified. Quality was accessed and acceptable. This report was transcribed using voice recognition technology and might contain unintended computerized director writing errors. Normal [facility] Comment on above: Performed By: #### [id number] #### [facility] [address] [place] [address] XR KNEE 1 OR 2 VIEWS RIGHTon 11-19-2024 Exam Date/Time: 11/17/2024 12:46 EDT Reason for [...] are noted from recent placement. Ordering Provider: Steve Duarte FINAL REPORT Dictated: 11/19/2024 11:40 am Nadir Marte MD Signed (Electronic Signature): 11/19/2024 11:40 am Signed by: Nadir Marte MD Transcribed by: VEDA Technologist: RAUL [facility] Radiology, Radiologi MD usha - 11/19/2024 Exam Date/Time: 11/17/2024 12:46 EDT [...] are noted from recent placement. Ordering Provider: Steve Duarte FINAL REPORT Dictated: 11/19/2024 11:40 am aNdir Marte MD Signed (Electronic Signature): 11/19/2024 11:40 am Signed by: Nadir Marte MD Transcribed by: VEDA Technologist: RAUL [facility] XR KNEE 1 OR 2 VIEWS RIGHTOr dered By: Radiologist Radiology on 11-19-2024 [facility] [employer] Work Phone: XR Knee 1 or 2 Views Righton 11-19-2024 XR Knee 1 or 2 Views Right Exam Date/Time: 11/17/2024 12:46 EDT Reason for [...] are noted from recent placement. Ordering Provider: Steve Duarte FINAL REPORT Dictated: 11/19/2024 11:40 am Nadir Marte MD Signed (Electronic Signature): 11/19/2024 11:40 am Signed by: Nadir Marte MD Transcribed by: VEDA Technologist: RAUL [facility] Main OR Intraoperative Recor don 11-18-2024 Main OR Intraoperative Record Main OR Intraoperative Record IntraOp Document Type FT Summary Primary Physician: Steve Duarte DO Finalized Date/Time: 11/18/24 09:45:22 Pt. Name: MICHELLE RODRIGUEZ/Sex: 1960 Female Med Rec #: [id number] Physician: Steve Duarte DO Financial #: [id number] Pt. Type: A Room/Bed: Admit/Disch: 11/17/24 08:07:32 - 11/17/24 17:25:00 Institution: Case Times FT Entry 1 Patient Times In Room 11/17/24 10:56:00 Out Room 11/17/24 12:23:00 Procedure Times Start 11/17/24 11:26:00 Stop 11/17/24 12:19:00 Anesthesia Times Start 11/17/24 10:56:00 Stop 11/17/24 12:23:00 Block Timeout w11/17/24 10:10:00 Anesthesia Last Modified By: Ranulfo HARRY, Jordan Harris 11/17/24 12:23:31 General Comments: Right adductor canal block performed by CRNA. Annika Covarrubias, RN to assist with the block. Patient's heartrate- 55, Sp02-97% on room air. patient tolerated block well. Patient taken back to [facility] bay 8 andf placed on monitor.-KAMRYN Hebert Case Attendance FT Entry 1 Entry 2 Entry 3 Case Attendee Elaina CISNEROS, Steve Winchester RN, Loulou Sam LPN Role Performed Surgeon - Primary Retail Pharmacy Manager - Primary Scrub - Primary Time In 11/17/24 11:21:00 11/17/24 10:56:00 11/17/24 10:56:00 Time Out 11/17/24 12:11:00 11/17/24 12:23:00 11/17/24 12:23:00 Procedure KNEE TOTAL KNEE TOTAL KNEE TOTAL ARTHROPLASTY(Right) ARTHROPLASTY(Right) ARTHROPLASTY(Right) Comments Last Modified By: Ranulfo RN, Jordan Winchester RN, Jordan Winchester RNJordan 11/17/24 12:23:32 11/17/24 12:23:32 11/17/24 12:23:32 Entry 4 Entry 5 Entry 6 Case Attendee Vinicius GEE, Shreya Prince CST, Macie C Role Performed Staff - Other Staff - Other FINANCIAL DEALERS/SA Time In 11/17/24 10:56:00 11/17/24 10:56:00 11/17/24 10:56:00 Time Out 11/17/24 12:23:00 11/17/24 12:23:00 11/17/24 12:23:00 Procedure KNEE TOTAL KNEE TOTAL KNEE TOTAL ARTHROPLASTY(Right) ARTHROPLASTY(Right) ARTHROPLASTY(Right) Comments 2nd scrub at surgical retractor valverde at field surgical field Last Modified By: Jordan Winchester RN, CST, Jordan Maddox RN 11/17/24 12:23:32 11/18/24 09:43:58 11/17/24 12:23:32 Entry 7 Case Attendee Maren TELLO CRNA, Queen N. Role Performed PRACTICAL NURSE CLINICAL COORDINATOR Time In 11/17/24 10:56:00 Time Out 11/17/24 12:23:00 Procedure KNEE TOTAL ARTHROPLASTY(Right) Comments , anesthesxia planning supervisor Last Modified By: Jordan Winchester RN 11/17/24 12:23:32 General Comments: Braeden Mendoza- [facility] Orthopaedic Rep., present in OR for surgical case. Perioperative Protocols FT Pre-Care Text: Implements protective measures prior to operative or invasive procedure, confirms identity before the operative or invasive procedure, verifies operative procedure, surgical site, and laterality Entry 1 Procedure(s) KNEE TOTAL Patient Identity Birthday, Blood Band, ARTHROPLASTY(Right) Verified (select at ID Band Check, Patient least 2): Participation Consents / H and P Anesthesia Consent, Operative Site Present Verified H&P, Surgery/Procedure Marking Verified Consent, Transfusion Consent Surgical Site Yes Laterality Verified Yes Verified Procedure Verified Yes Correct Patient Yes Position Verified Availability Equipment, Implant, Prep Dry n/a Verified (If Medication Applicable) PreOp Antibiotic Yes Time Out Elaina CISNEROS, Steve Ayala, Given Participants Ranulfo HARRY, Dale Lanier LPN, Vinicius Holland CST, Terrell Garcia, Donnie Alvarado CST, Maren Bassett DNP, CRNA, Queen N. Time Out Complete 11/17/24 11:22:00 Outcomes Met? Yes Last Modified By: Jordan Winchester RN 11/17/24 11:27:41 Post-Care Text: The patient is free from signs and symptoms of injury caused by extraneous objects Allergy Information FT Pre-Care Text: Verifies allergies Entry 1 Allergies Reviewed? Yes Allergies Reviewed Self/Patient With Outcomes Met? Yes Last Modified By: Jordan Winchester RN 11/17/24 10:14:01 Post-Care Text: The patient received appropriate medication(s) safely administered during the perioperative period Surgical Procedures FT Entry 1 Procedure Description Procedure KNEE TOTAL ARTHROPLASTY Modifiers Right Surgeon Description RIGHT TOTAL KNEE ARTHROPLASTY Primary Procedure Yes Primary Surgeon Steve Duarte DO Start 11/17/24 11:26:00 Stop 11/17/24 12:19:00 Anesthesia Type General Surgical Service Orthopedics Wound Class 1 - Clean Last Modified By: Jordan Winchester RN 11/17/24 12:23:35 General Case Data FT Pre-Care Text: Classifies surgical wound, implements aseptic technique, initiates traffic control Entry 1 Case Information OR OR 5 FT Case Level Level 6 Wound Class 1 - Clean Specialty Orthopedics ASA Class 3 Preop Diagnosis RIGHT KNEE OA Postop Same As Preop Yes Postop Diagnosis RIGHT KNEE OA Outcomes Met? Yes Last Modified By: Jordan Winchester RN 11/17/24 11:27:02 Post-Care Text: The patient is free from s (more content not included)... Normal [facility] Operative Reporton Operative Report Operative Report SURGERY DATE: 11/17/2024 ARMATURE WINDER REPAIR HELPER: Nicki Fields C.F.A. PREOPERATIVE DIAGNOSES: 1. Right knee endstage osteoarthritis with antalgic gait 2. Failure of conservative injection care 3. Grade 4 findings on preoperative x-ray POSTOPERATIVE DIAGNOSES: 1. Right knee endstage osteoarthritis with antalgic gait 2. Failure of conservative injection care 3. Grade 4 findings on preoperative x-ray OPERATION: Right total knee arthroplasty ANESTHESIA: Spinal with sedation with block ESTIMATED BLOOD LOSS: Zero SPECIMEN: Bone IMPLANTS UTILIZED: The DePuy Attune knee system with a size 6 PS cemented right femur, size 5 cemented fixed tibial tray, 5 mm insert, 35 mm patellar button TOURNIQUET TIME: See nurse's record HISTORY AND INDICATIONS: Michelle is a 64-year-old female with progressive right knee pain that has been recalcitrant to conservative injection and arthroscopic management. Please see office notes and History and Physical. She has contralateral disease that is advanced as well. The last series of viscosupplementation provided little to no relief. The pros, cons, risks, benefits, and reasonable expectations were thoroughly reviewed, consent form signed and charted, sites marked preoperatively, all questions answered preoperatively, antibiotics provided weight based per protocol. PROCEDURE: Michelle was taken to the Operating Room and placed in supine position. Anesthesia was provided. A well-padded tourniquet was placed on the right upper thigh. The leg was prepped and draped in a sterile fashion. A time-out procedure occurred consistent with the consent form, History and Physical, preoperative marked site. Landmarks were identified. Once time-out was confirmed, a midline incision was made of 6 . A medial parapatellar arthrotomy was performed, and the patella was everted. Endstage tricompartmental degenerative changes were noted that were severe in the medial and patellofemoral joints. There was no sign of infection or synovitis. Moderate-size effusion. The patella was appropriately cut, measured, and retracted. The intramedullary drill and jig device was placed in the femur, and a 5-degree valgus was performed taking off 11 mm. This was sized for a size 6. Anterior and posterior as well as chamfer cuts were performed, and a posterior-stabilized box cut was performed. Anterior cruciate ligament and posterior cruciate ligament were resected, collateral ligaments protected and balanced, meniscal remnants removed. Intramedullary drill and jig device was placed at the tibia, and tibia was cut. Gaps were symmetrical. Posterior gutters were clean and free. The tibia was prepared for a size 5. Trial components were placed with full extension and appropriate flexion. Patellofemoral tracking and height were appropriate with a 5 mm trial. The patella size was 35. All trial components were removed. The capsule, gutters, and soft tissues were soaked with Irrisept per protocol. Exparel 100 cc was injected along the fascia and subcutaneous tissues. After pulsed lavage irrigation was performed, the [place] Simplex cement was mixed and all components cemented in place and allowed to harden for 16 minutes. All cement osteophytes removed. Knee was taken through an arc of motion and deemed stable. Tranexamic acid 2 g was injected subfascially. The fascial layer was closed with #2 Quill suture in a running fashion, 2-0 Quill suture closed the subcutaneous tissues, and lo were applied with her thin skin. A 10 Mepilex dressing with soft roll wrap was provided. Tourniquet was deflated. Michelle was awakened from anesthesia and transferred to the Recovery Room in stable and satisfactory condition. CASE: Clean and elective COUNTS: Sponge and needle count correct SPECIMEN: Bone PATIENT CONDITION: Satisfactory Steve Duarte D.O. ca Dictated: 11/17/2024 [id number] Transcribed: 11/17/2024 cc:Maggie Baldwin MD [facility] Comment on above: Result Comment: Elec tronically Signed By: Steve Duarte DO\.br\Date and Time Signed: 11/18/24 06:06 EDT ABO/Rhon 11-17-2024 ABO/Rh Positive Invalid Interpretation Code [facility] Comment on above: Performed By: #### 2 [id number] #### [facility] [address] [place] [address] ABO/Rh History Checkon 11-17 ABO/Rh History Check Verified Hx Blood Type Normal [facility] Comment on above: Performed By: #### 1 [id number] #### [facility] [address] [place] [address] ABSCon 11-17-2024 ABSC Gel Interp Negative Normal [facility] Comment on above: Performed By: #### 1 [id number] ####[facility] [address] [place] [address] BLOOD BANKOrdered By: Bruno Luong on 11-17-2024 ABO/Rh Interp Positive Invalid Interpretation Code [facility] BB Subsection ABSC Gel Interp Negative (11/17/24 8:47 AM) Normal [facility] BB Subsection Blood Bank ID#on 11-17-2024 BBID# [id number] Invalid Interpretation Code [facility] Comment on above: Performed By: #### 1 [id number] #### [facility] [address] [place] [address] Discharge Instructionson Discharge Instructions Discharge Instructions MICHELLE RODRIGUEZ :1960 MRN: Visit Date:11/17/2024 Inpatient Discharge Instructions Your Care Team Admitting Physician - Steve Duarte DO Referring Physician - Steve Duarte DO Reason for Your Visit RIGHT KNEE OA Your Diagnosis Post-traumatic osteoarthritis of right knee Tests Performed XR Knee 1 or 2 Views Right -- Results Pending -- Please visit your patient portal for your results or contact your primary care physician. This Is Your Medications List acetaminophen-oxycodone (Percocet 5 mg-325 mg oral tablet) aspirin (aspirin 325 mg Oral EC Tab) docusate (Colace 100 mg Cap) ferrous sulfate (ferrous sulfate 325 mg Tab) isosorbide mononitrate (isosorbide mononitrate 30 mg ER Tab) meloxicam (meloxicam 15 mg Tab) metoprolol (Metoprolol tartrate 50 mg Tab) nitroglycerin (nitroglycerin 0.4 mg sublingual Tab) pantoprazole (Pantoprazole [address] Tab) simvastatin (simvastatin 20 mg Tab) Procedure History Colonoscopy (05/12/2024), Cystourethroscopy with dilation of urethral stricture (09/23/2013), Cystourethroscopy with dilation of urethral stricture (04/29/2003), Rotator cuff repair, Superficial parotidectomy, Tubal ligation. What to do next Instructions From Your Doctor Event Name Event Result Discharge Activity Ambulate as tolerated, Arrange for a responsible adult supervision for 24 hours, Expect mild pain, Expect minimal amount of drainage and/or bleeding, Do not lift more than 5 lbs Discharge Restrictions No driving, Do not operate machinery or tools, Do not make important decisions for 24 hours, Do not drink alcoholic beverages for 24 hours Discharge Diet(s) Regular, Drink liquids and eat a light meal Call Your Doctor For Persistent or heavy bleeding, Temperature above 101.5 degrees, Redness, swelling, or pus at operative site, Severe pain at the operative site, Persistent vomiting Wound Care Remove dressing as instructed Remove Dressing On 10 Discharge Instructions Discharge Instructions New Follow Up Appointments after Discharge Follow Up with MARIA Guadarrama When: 12/16/2024 01:30 PM EDT Comments: Keep scheduled appointment Where: [address] [place], [place] [id number] [employer] (1) Medications What How Much When Why Instructions Next Dose Unchanged acetaminophen-oxycodone (Percocet 5 mg-325 mg oral tablet) See instructions Post-traumatic osteoarthritis of right knee Take one to two oral every 4 hours as needed for surgical pain. Pickup at [facility]/pharmacy #[id number] Unchanged aspirin (aspirin 325 mg Oral EC Tab) 1 Tablets By Mouth Every day Unchanged docusate (Colace 100 mg Cap) 1 Capsules By Mouth 2 times a day Pickup at [facility]/pharmacy #[id number] Unchanged ferrous sulfate (ferrous sulfate 325 mg Tab) 1 Tablets By Mouth Every day Unchanged isosorbide mononitrate (isosorbide mononitrate 30 mg ER Tab) 1 Tablets By Mouth Once a day (in the morning) Unchanged meloxicam (meloxicam 15 mg Tab) 1 Tablets By Mouth Every day Unchanged metoprolol (Metoprolol tartrate 50 mg Tab) 1 Tablets By Mouth 2 times a day Unchanged nitroglycerin (nitroglycerin 0.4 mg sublingual Tab) 1 Tablets Sublingual Every 5 minutes as needed for for chest pain Unchanged pantoprazole (Pantoprazole [address] Tab) 1 Tablets By Mouth Every day Unchanged simvastatin (simvastatin 20 mg Tab) 1 Tablets By Mouth Once a day (in the evening) Pharmacy Information [facility]/pharmacy #[id number]: [address], [place] [id number] [phone] Allergies No Known Allergies No Known Medication Allergies Devices Implanted/Removed This Visit Notice: You have devices implanted this visit that may not be MRI compatible. Implanted KNEE TOTAL ARTHROPLASTY Knee R ATTUNE FEMORAL POSTERIOR STABILIZED NARROW SIZE 6N RIGHT CEMENTED 11/17/2024 CEMENT SIMPLEX PLAIN VISCOSITY HIGH [6194-1-010] (2), 11/17/2024, Unknown - BRANDY: {[id number]}[id number] ATTUNE TIBIAL BASE FIXED BEARING SIZE 5 CEMENTED 11/17/2024 ATTUNE TIBIAL INSERT FIXED BEARING POSTERIOR STABILIZED SIZE 6 11/17/2024 ATTUNE PATELLA MEDIALIZED DOME 35 MM CEMENTED 11/17/2024 Education Materials How to Use an Incentive Spirometer An incentive spirometer is a tool that measures how well you are filling your lungs with each breath. Learning to take long, deep breaths using this tool can help you keep your lungs clear and active. This may help to reverse or lessen your chance of developing breathing (pulmonary) problems, especially infection. You may be asked to use a spirometer: ??? After a surgery. ??? If you have a lung problem or a history of smoking. ??? After a long period of time when you have been unable to move or be active. If the spirometer includes an indicator to show the highest number that you have reached, your health care provider or respiratory therapist will help you set a goal. Keep a log of your progress as told b (more content not included)... Normal [facility] Comment on above: Result Comment: Elec tronically Signed By: Shirley HARRY, Karen Duke.lloyd\Date and Time Signed: 11/17/24 15:07 EDT Main OR PACU I Recordon Main OR PACU I Record Main OR PACU I Record PACU Phase I Document Type FT Summary Primary Physician: Steve Duarte DO Finalized Date/Time: 11/17/24 13:30:31 Pt. Name: MICHELLE RODRIGUEZ./Sex: 1960 Female Med Rec #: [id number] Physician: Steve Duarte DO Financial #: [id number] Pt. Type: A Room/Bed: [place] [address] Admit/Disch: 11/17/24 08:07:32 - Institution: Case Times PACU I FT Pre-Care Text: Identifies barriers to communication and implements measures to provide psychological support Develops individualized plan of care, and ensures continuity of care Maintains patient's dignity and privacy, and maintains patient confidentiality Identifies and reports philosophical, cultural, and spiritual beliefs and values Identifies individual values and wishes concerning care Implements aseptic technique, and administers prescribed antibiotic therapy and immunizing agents as ordered Evaluates postoperative tissue perfusion Implements thermoregulation measures, and monitors body temperature Evaluates postoperative respiratory status Evaluates postoperative cardiac status Evaluates postoperative neurological status Assesses pain control, collaborated in initiating patient-controlled analgesia and implements alternative methods of pain control Verifies allergies, administers prescribed medications and solutions, evaluates response to medications Entry 1 In PACU I 11/17/24 12:25:00 Discharge from PACU 11/17/24 12:55:00 I Outcomes Met? Yes Last Modified By: Kimmie Jang RN 11/17/24 13:30:05 Post-Care Text: The patient demonstrates knowledge of the expected response to the operative or invasive procedure The patient's care is consistent with the individualized perioperative plan of care The patient's right to privacy is maintained The patient's value system, lifestyle, ethnicity, and culture are considered, respected, and incorporated into the perioperative plan of care The patient participates in decisions affecting his or her perioperative plan of care The patient is free from signs and symptoms of infection The patient has wound/tissue perfusion consistent with or improved from baseline levels established preoperatively The patient is at or returning to normothermia at the conclusion of the immediate postoperative period The patient's respiratory function is consistent with or improved from baseline levels established preoperatively The patient's cardiovascular status is consistent with or improved from baseline levels established preoperatively The patient's cardiovascular status is consistent with or improved from baseline levels established preoperatively The patient demonstrates and/or reports adequate pain control throughout the perioperative period The patient received appropriate medication(s), safely administered during the perioperative period Acuity Level PACU I FT Entry 1 Start Time 11/17/24 12:25:00 Stop Time 11/17/24 12:55:00 Acuity Level Acuity Level I Last Modified By: Kimmie Jang RN 11/17/24 13:30:28 Finalized By: Kimmie Jang RN Document Signatures Signed By: Kimmie Jang RN 11/17/24 13:30 Normal [facility] Main OR PACU II Recordon Main OR PACU II Record Main OR PACU II Record PACU Phase II Document Type FT Summary Primary Physician: Steve Duarte DO Finalized Date/Time: 11/17/24 17:28:31 Pt. Name: MICHELLE RODRIGUEZ/Sex: 1960 Female Med Rec #: [id number] Physician: Steve Duarte DO Financial #: [id number] Pt. Type: A Room/Bed: [place] [address] Admit/Disch: 11/17/24 08:07:32 - Institution: Case Times PACU II FT Pre-Care Text: Identifies barriers to communication and implements measures to provide psychological support and determines knowledge level Develops individualized plan of care, and ensures continuity of care Maintains patient's dignity and privacy, and maintains patient confidentiality Identifies and reports philosophical, cultural, and spiritual beliefs and values Identifies individual values and wishes concerning care administers prescribed antibiotic therapy and immunizing agents as ordered, Evaluates postoperative tissue perfusion Implements thermoregulation measures, and monitors body temperature Evaluates postoperative respiratory status Evaluates postoperative cardiac status Evaluates postoperative neurological status Assesses pain control, collaborated in initiating patient-controlled analgesia and implements alternative methods of pain control Verifies allergies, administers prescribed medications and solutions, evaluates response to medications Entry 1 In PACU II 11/17/24 12:55:00 Discharge from PACU 11/17/24 17:25:00 II Outcomes Met? Yes Last Modified By: Daphne Daniels RN 11/17/24 17:28:29 Post-Care Text: The patient demonstrates knowledge of the expected response to the operative or invasive procedure The patient's care is consistent with the individualized perioperative plan of care The patient's right to privacy is maintained The patient's value system, lifestyle, ethnicity, and culture are considered, respected, and incorporated into the perioperative plan of care The patient participates in decisions affecting his or her perioperative plan of care. The patient is free from signs and symptoms of infection The patient has wound/tissue perfusion consistent with or improved from baseline levels established preoperatively The patient is at or returning to normothermia at the conclusion of the immediate postoperative period The patient's respiratory function is consistent with or improved from baseline levels established preoperatively The patient's cardiovascular status is consistent with or improved from baseline levels established preoperatively The patient's neurological status is consistent with or improved from baseline levels established preoperatively The patient demonstrates and/or reports adequate pain control throughout the perioperative period The patient received appropriate medication(s), safely administered during the perioperative period Finalized By: Daphne Daniels RN Document Signatures Signed By: Daphne Daniels RN 11/17/24 17:28 Normal [facility] Operative Reporton Operative Report Operative Report Patient: MICHELLE RODRIGUEZ Age: 64 years Sex: Female : 1960 Associated Diagnoses: None Author: Steve Duarte DO Health Status Allergies: Allergic Reactions (Selected) No Known Allergies No Known Medication Allergies Review / Management Results review: Lab results 11/17/2024 8:47 EDT ABO/Rh Interp A POS ABSC Gel Interp Negative . Impression and Plan Diagnosis Pre-op dx-rt knee oa/pain Post-op dx-same Procedure-rt tka Anesthesia-spinal c block EBL-0 TT-see nn To Recovery Room in stable and satisfactory condition.. Normal [facility] Comment on above: Result Comment: Elec tronically Signed By: Steve Duarte DO\.br\Date and Time Signed: 11/17/24 12:23 EDT Proceduralon 11-17-2024 Procedural Procedural Patient: MICHELLE RODRIGUEZ MRN: Age: 64 years Sex: Female : 1960 Associated Diagnoses: None Author: Maren TELLO CRNA, Queen N. Procedure Nerve Block Block Type: Adductor canal block. Laterality: Right. Informed consent for anesthesia management: Anesthesia options discussed including nerve block, Description of the procedure, risks, benefits, and alternatives was provided, The patient's questions were addressed. Time out: Confirmed correct patient, procedure and site. Time: Date/Time 11/17/2024 10:09:00. Indication: Block for postoperative pain management as requested by surgeon. Anesthesia Method: IV Sedation with monitored anesthesia care, The patient remained awake and able to interact in a meaningful way throughout the procedure. Preparation: The patient was placed in the following position Supine, Continuous pulse oximetry applied, Using maximal sterile barrier technique per current [facility] guidelines including hand hygeine, Guidance (Ultrasound used to identify anatomical landmarks, Using sterile gel and probe covers, Permanent image retained), The site was prepped with ChloraPrep. Procedure: Anesthetic Agent 20cc of 0.5% Ropivicaine with 4mg PF decadron, Catheter size 22G, [place], Needle was inserted without pain or parasthesia in the conscious patient, Number of attempts 1, Negative attempt at aspiration for blood, Medial and lateral spread of the anesthestic was observed, Periodic negative attempts at aspiration of blood were made as the local was injected, No pain or parathesia were elicited with injection of the anesthetic in the conscious patient, It was idetified that the correct anesthetic agent was administered to the correct site. Complications: The patient tolerated the procedure as expected, Procedure completed by Queen Maren CRNA under my supervision. Normal [facility] XR KNEE 1 OR 2 VIEWS RIGHTon 11-17-2024 Radiology Study observation (narrative) [facility] Inpatient Patient Summaryon 11-11-2024 Inpatient Patient Summary Inpatient Patient Summary [place] [id number] [facility] Clinical Discharge Instructions PERSON INFORMATION Name: MICHELLE RODRIGUEZ MRN: [facility]IANS Admitting Physician: Steve Duarte DO Attending Physician: Steve Duarte DO PCP: Maggie Baldwin MD Discharge Diagnosis: Post-traumatic osteoarthritis of right knee Comment: PATIENT EDUCATION INFORMATION Instructions: Duarte - Total Knee Arthroplasty (CUSTOM) Medication Leaflets: Follow up: With: Address: When: [address] [place], [place] [id number] Business (1) Comments: Keep scheduled appointment Type Location Start [facility] 11/17/2024 12:30 PM 11/17/2024 1:30 PM Confirmed MEDICATION LIST Medications to Continue with No Changes Other Medications aspirin (aspirin 325 mg Oral EC Tab) 1 Tablets By Mouth every day. ferrous sulfate (ferrous sulfate 325 mg Tab) 1 Tablets By Mouth every day. isosorbide mononitrate (isosorbide mononitrate 30 mg ER Tab) 1 Tablets By Mouth once a day (in the morning). meloxicam (meloxicam 15 mg Tab) 1 Tablets By Mouth every day. metoprolol (Metoprolol tartrate 50 mg Tab) 1 Tablets By Mouth 2 times a day. nitroglycerin (nitroglycerin 0.4 mg sublingual Tab) 1 Tablets Sublingual every 5 minutes as needed for chest pain. pantoprazole (Pantoprazole [address] Tab) 1 Tablets By Mouth every day. simvastatin (simvastatin 20 mg Tab) 1 Tablets By Mouth once a day (in the evening). Comment: Normal [facility] Outpatient Surgery Discharge Instructionon 11-11-2024 Outpatient Surgery Discharge Instruction Outpatient Surgery Discharge Instruction [facility] [address] [place], [place] [address] Patient Discharge Instructions PERSON INFORMATION Name: MICHELLE RODRIGUEZ Date of : 1960 Current Date: 11/11/2024 17:11:50 [facility] Admitting Physician: Steve Duarte DO Discharge Diagnosis: Post-traumatic osteoarthritis of right knee MICHELLE RODRIGUEZ has been given the following list of follow-up instructions, prescriptions, and patient education materials: PATIENT FOLLOW-UP INFORMATION Diet: Regular, Drink liquids and eat a light meal Discharge Activity: Ambulate as tolerated, Arrange for a responsible adult supervision for 24 hours, Expect mild pain, Expect minimal amount of drainage and/or bleeding, Do not lift more than 5 lbs Discharge Restrictions: No driving, Do not operate machinery or tools, Do not make important decisions for 24 hours, Do not drink alcoholic beverages for 24 hours Call Your Doctor For: Persistent or heavy bleeding, Temperature above 101.5 degrees, Redness, swelling, or pus at operative site, Severe pain at the operative site, Persistent vomiting Wound Care Instructions: Remove dressing as instructed Remove Your Dressing In 10 Days IF UNABLE TO CONTACT YOUR PHYSICIAN AND YOU FEEL IT IS AN EMERGENCY, GO TO THE NEAREST EMERGENCY ROOM OR CALL 911 EVE Baltazar LISA M, have received the attached patient education materials/instructions and have verbalized understanding: May we do a follow up call? Yes No I was present when discharge instructions were given Patient Signature Date Clinican/Nurse Signature _ Date Follow up: With: Address: When: Steve Duarte [address] [place], [place] [id number] Business (1) Comments: Keep scheduled appointment Type Location [facility] 11/17/2024 12:30 PM 11/17/2024 1:30 PM Confirmed Pharmacy Information: You may receive a survey from [employer] asking you to rate your care experience. Your feedback is important and will help us understand what we do well and how we can improve the quality of care we provide to you, your loved ones and our community. It???s an honor to serve you. Thank you for choosing [facility] HERE ARE THE MEDICATION CHANGES THAT OCCURRED DURING YOUR HOSPITAL STAY Medications to Continue with No Changes Other Medications aspirin (aspirin 325 mg Oral EC Tab) 1 Tablets By Mouth every day. ferrous sulfate (ferrous sulfate 325 mg Tab) 1 Tablets By Mouth every day. isosorbide mononitrate (isosorbide mononitrate 30 mg ER Tab) 1 Tablets By Mouth once a day (in the morning). meloxicam (meloxicam 15 mg Tab) 1 Tablets By Mouth every day. metoprolol (Metoprolol tartrate 50 mg Tab) 1 Tablets By Mouth 2 times a day. nitroglycerin (nitroglycerin 0.4 mg sublingual Tab) 1 Tablets Sublingual every 5 minutes as needed for chest pain. pantoprazole (Pantoprazole [address] Tab) 1 Tablets By Mouth every day. simvastatin (simvastatin 20 mg Tab) 1 Tablets By Mouth once a day (in the evening). PATIENT EDUCATION INFORMATION Instructions: [place], [place] [facility] DISCHARGE INSTRUCTIONS TOTAL KNEE ARTHROPLASTY INCISION CARE: Mepilex dressing can get wet with showers. Please remove 10 days after surgery per instruction sheet. Physical Therapy will monitor. If lo present, please coordinate removal 21 days after surgery with office staff. Please notify the office if any increase in redness, tenderness, drainage, fever, or wound separation is noted beyond this point. No dental work or cleaning for 3 months. MEDICATIONS: You may resume your home medications at the time of discharge. Blood thinners - continue the day after surgery. Aspirin 325 mg EC oral once a day for 4 weeks for blood clot prevention with meals. Please notify your doctor if you have a stomach sensitivity to Aspirin or history of previous stomach ulcers. Pain medication has been prescribed as well. You may continue to use the pain medication every four hours as needed. Any narcotic pain medication can cause side effects including stomach upset, constipation, or light-headedness. You should not drive or operate machinery, or use alcohol while using the narcotic pain medication. You should not use other pain medications with this prescription pain medication unless further directed by your physician. PHYSICAL THERAPY: Continue the range of motion and strengthening exercises initiated in Physical Therapy in the hospital. [facility] Discharge Instructs for TKA Page 2 Physical Therapy (more content not included)... Normal [facility] ABO/Rh RetypeOrdered By: Florina Chavarria on 10-31-2024 ABO/Rh Retype Interp Positive Invalid Interpretation Code [facility] BB Subsection Comment on above: Performed By: #### 1 [id number] #### [facility] [address] [place] [address] BMPOrdered By: SYSTEM SYSTEM on 10-31-2024 Anion gap [Moles/Vol] 14 mmol/L Normal 6-16 [facility] Comment on above: Performed By: #### 2 [id number] #### [facility] [address] [place] [address] Calcium [Mass/Vol] 9.7 mg/dL Normal 8.9-11.1 Remiso l Chem Comment on above: Performed By: #### 2 [id number] #### [facility] [address] [place] [address] Chloride [Moles/Vol] 104 mmol/L Normal 101-111 Prosper judy Chem Comment on above: Performed By: #### 2 [id number] #### [facility] [address] [place] [address] CO2 [Moles/Vol] 25 mmol/L Normal 21-31 Remisol C hem Comment on above: Performed By: #### 2 [id number] #### [facility] [address] [place] [address] Creatinine [Mass/Vol] 0.9 mg/dL Normal 0.5-1.3 Remisol Chem Comment on above: Performed By: #### 2 [id number] #### [facility] [address] [place] [address] Glucose [Mass/Vol] 89 mg/dL Normal 55-199 Remiso l Chem Comment on above: Performed By: #### 2 [id number] #### [facility] [address] [place] [address] Potassium [Moles/Vol] 4.0 mmol/L Normal 3.5-5.3 Remisol Chem Comment on above: Performed By: #### 2 [id number] #### [facility] [address] [place] [address] Sodium [Moles/Vol] 139 mmol/L Normal 135-145 Remiso l Chem Comment on above: Performed By: #### 2 [id number] #### [facility] [address] [place] [address] Urea nitrogen [Mass/Vol] 21 mg/dL Normal 5-21 Remisol Chem Comment on above: Performed By: #### 2 [id number] #### [facility] [address] [place] [address] BMPon 10-31-2024 Urea nitrogen/Creatinine [Mass ratio] 23 No Units High 10-20 [facility] Comment on above: Performed By: #### 2 [id number] #### [facility] [address] [place] [address] CBC w/ Auto DiffOrdered By: SYSTEM SYSTEM on 10-31-2024 Basophils/100 WBC (Bld) 0.2 % Normal 0.0-2.0 Remisol Heme Comment on above: Performed By: #### 2 [id number] #### [facility] [address] [place] [address] Basophils/Leukocytes Auto (Bld) [Pure # fraction] 0.0 E9/L Normal 0.0-0.2 Remisol Heme Comment on above: Performed By: #### 2 [id number] #### [facility] [address] [place] [address] Eosinophils (Bld) [#/Vol] 0.1 E9/L Normal 0.0-0.5 Remisol Heme Comment on above: Performed By: #### 2 [id number] #### [facility] [address] [place] [address] Eosinophils/100 WBC (Bld) 2.3 % Normal 0.0-8.0 Remisol Heme Comment on above: Performed By: #### 2 [id number] #### [facility] [address] [place] [address] Erythrocyte distribution width (RBC) [Ratio] 13.3 % Normal 10.9-14.2 Remisol Heme Comment on above: Performed By: #### 2 [id number] #### [facility] [address] [place] [address] Hematocrit (Bld) [Volume fraction] 38.3 % Normal 34.0-46.0 Remisol Heme Comment on above: Performed By: #### 2 [id number] #### [facility] [address] [place] [address] Hemoglobin (Bld) [Mass/Vol] 13.0 g/dL Normal 12.0-16.0 Remisol Heme Comment on above: Performed By: #### 2 [id number] #### [facility] [address] [place] [address] Lymphocytes (Bld) [#/Vol] 2.0 E9/L Normal 1.0-4.0 Remisol Heme Comment on above: Performed By: #### 2 [id number] #### [facility] [address] [place] [address] Lymphocytes/100 WBC (Bld) 33.4 % Normal 14.0-50.0 Remisol Heme Comment on above: Performed By: #### 2 [id number] #### [facility] [address] [place] [address] MCH (RBC) [Entitic mass] 30.6 pg Normal 27.0-34.0 Remisol Heme Comment on above: Performed By: #### 2 [id number] #### [facility] [address] [place] [address] MCHC (RBC) [Mass/Vol] 34.0 g/dL Normal 31.4-36.0 Remisol Heme Comment on above: Performed By: #### 2 [id number] #### [facility] [address] [place] [address] MCV (RBC) [Entitic vol] 89.9 fL Normal 80.0-100.0 Remisol Heme Comment on above: Performed By: #### 2 [id number] #### [facility] [address] [place] [address] Monocytes (Bld) [#/Vol] 0.5 E9/L Normal 0.2-1.0 Remisol Heme Comment on above: Performed By: #### 2 [id number] #### [facility] [address] [place] [address] Neutrophils (Bld) [#/Vol] 3.2 E9/L Normal 2.0-7.5 Remisol Heme Comment on above: Performed By: #### 2 [id number] #### [address] [address] Neutrophils/100 WBC (Bld) 55.6 % Normal 36.0-75.0 Remisol Heme Comment on above: Performed By: #### 2 [id number] #### [facility] [address] [place] [address] Platelet mean volume (Bld) [Entitic vol] 8.9 fL Normal 6.4-10.8 Remisol Heme Comment on above: Performed By: #### 2 [id number] #### [address] [address] Platelets (Bld) [#/Vol] 275.0 E9/L Normal 150.0-500.0 Remisol Heme Comment on above: Performed By: #### 2 [id number] #### [facility] [address] [place] [address] RBC (Bld) [#/Vol] 4.3 E12/L Normal 4.3-5.9 Remisol Heme Comment on above: Performed By: #### 2 [id number] #### [facility] [address] [place] [address] WBC corrected for nucl RBC Auto (Bld) [#/Vol] 5.9 E9/L Normal 4.0-11.0 Remisol Heme Comment on above: Performed By: #### 2 [id number] #### [facility] [address] [place] [address] [place] [address] CHEMISTRYOrdered By: SYSTEM SYSTEM on 10-31-2024 Urea nitrogen/Creatinine [Mass ratio] 23 mg/mg High 10 - 20 Remisol Chem HEMATOLOGYOrdered By: SYSTEM SYSTEM on 10-31-2024 Monocytes/100 WBC (Bld) 8.5 % Normal 4.0 - 14.0 % Remisol Heme UA WITH CULT RFLXon 11-01-19 25 BILIRUBIN:PRTHR:PT:U RINE:ORD:TEST STRIP.AUTOMATED Negative Negative mg/dL [facility] CLARITY:TYPE:PT:URIN E:NOM: Clear Clear [facility] CLASS:TYPE:PT:URINE COLLECTION METHOD:NOM:* Clean Catch [facility] COLOR:TYPE:PT:URINE: NOM:AUTO Light-Yellow Yellow [facility] Comment on above: Microscopic readings are only performed on those samples that meet specific criteria set forth by [facility]. [facility] PH:LSCNC:PT:URINE:QN :TEST STRIP 5.0 5.0 - 9.0 [facility] SPECIFIC GRAVITY:RDEN:PT:URIN E:QN:TEST STRIP 1.022 1.005 - 1.030 [facility] GLUCOSE:PRTHR:PT:URI NE:ORD:TEST STRIP Negative Negative mg/dL [facility] HEMOGLOBIN:MCNC:PT:U RINE:SEMIQN:TEST STRIP.AUTOMATED Negative Negative mg/dL [facility] KETONES:PRTHR:PT:URI NE:ORD:TEST STRIP.AUTOMATED Negative Negative mg/dL [facility] LEUKOCYTE ESTERASE:PRTHR:PT:UR INE:ORD:TEST STRIP.AUTOMATED Negative Negative CD:[id number] [facility] NITRITE:PRTHR:PT:URI NE:ORD:TEST STRIP.AUTOMATED Negative Negative mg/dL [facility] PROTEIN:PRTHR:PT:URI NE:ORD:TEST STRIP Negative Negative mg/dL [facility] UROBILINOGEN:MCNC:PT :URINE:SEMIQN:TEST STRIP Negative Negative mg/dL [facility] Original Ordering Provider: DO Steve Duarte [facility] UA with Cult RflxOrdered By: SYSTEM SYSTEM on 10-31-2024 Bilirubin Ql (U) Negative Normal Negative [facility] UA Auto SS Comment on above: Performed By: #### 4 [id number] #### [facility] [address] [place] [address] Glucose Ql (U) Negative Normal Negative [facility] UA Au to SS Comment on above: Performed By: #### 4 [id number] #### [facility] [address] [place] [address] Hemoglobin Auto test strip (U) [Mass/Vol] Negative Normal Negative [facility] UA Aut o SS Comment on above: Performed By: #### 4 [id number] #### [facility] [address] [place] [address] Ketones Auto test strip Ql (U) Negative Normal Negative [facility] UA Auto SS Comment on above: Performed By: #### 4 [id number] #### [facility] [address] [place] [address] Leukocyte esterase Auto test strip Ql (U) Negative Normal Negative [facility] UA Auto SS Comment on above: Performed By: #### 4 [id number] #### [facility] [address] [place] [address] Nitrite Auto test strip Ql (U) Negative Normal Negative [facility] UA Auto SS Comment on above: Performed By: #### 4 [id number] #### [facility] [address] [place] [address] Protein Ql (U) Negative Normal Negative FT UA Au to SS Comment on above: Performed By: #### 4 [id number] #### [facility] [address] [place] [address] Urobilinogen (U) [Mass/Vol] Negative Normal Negative [facility] UA Auto SS Comment on above: Performed By: #### 4 [id number] #### [facility] [address] [place] [address] UA with Cult Rflxon 11-01-19 25 Clarity (U) Clear Normal Clear [facility] Comment on above: Performed By: #### 4 [id number] #### [facility] [address] [place] [address] Color (U) Light-Yellow Normal Yellow [facility] Comment on above: Result Comment: Micr oscopic readings are only performed on those samples that meet specific criteria set forth by [facility]. Performed By: #### 4 [id number] #### [facility] [address] [place] [address] pH (U) 5.0 [pH] Invalid Interpretation Code 5.0-9.0 [facility] Comment on above: Performed By: #### 4 [id number] #### [facility] [address] [place] [address] Specific gravity (U) [Rel density] 1.022 Invalid Interpretation Code 1.005-1.030 [facility] Comment on above: Performed By: #### 4 [id number] #### [facility] [address] [place] [address] Type of Urine collection method Clean Catch Normal [facility] Comment on above: Performed By: #### 4 [id number] #### [facility] [address] [place] [address] URINALYSISOrdered By: [employer] SYSTEM on 10-31-2024 Clarity (U) Clear (10/31/24 3:00 PM) Normal Clear [facility] UA Auto SS Color (U) Light-Yellow 1 (10/31/24 3:00 PM) Normal Yellow [facility] UA Auto SS Comment on above: Interpretive Data: M icroscopic readings are only performed on those samples that meet specific criteria set forth by [facility]. pH (U) 5.0 *NA* (10/31/24 3:00 PM) Invalid Interpretation Code 5.0 - 9.0 [facility] UA Auto SS Specific gravity (U) [Rel density] 1.022 *NA* (10/31/24 3:00 PM) Invalid Interpretation Code 1.005 - 1.030 [facility] UA Auto SS URINALYSISOrdered By: Sienna Maza on 10-31-2024 UA Spec Desc Clean Catch (10/31/24 3:00 PM) Normal [facility] UA Auto SS eGFROrdered By: SYSTEM SYSTE [employer] on 10-31-2024 eGFR 71 mL/min/1.73 m2 Normal >=59 [facility] Comment on above: Performed By: #### 1 [id number] #### [facility] [address] [place] [address] L Inj/Asp: bilateral kneeon 06-03-2024 Eliane Yoo MA 06/03/2024 2:17 PM L Inj/Asp: bilateral knee on 06/03/2024 1:45 PM Indications: diagnostic evaluation Details: 22 G needle Medications (Right): 2 mL sodium hyaluronate 16.8 MG/2ML Medications (Left): 2 mL sodium hyaluronate 16.8 MG/2ML Outcome: tolerated well, no immediate complications Consent was given by the patient. [facility] L Inj/Asp: bilateral kneeon 05-27-2024 Eliane Yoo MA 05/27/2024 2:15 PM L Inj/Asp: bilateral knee on 05/27/2024 1:55 PM Indications: diagnostic evaluation Details: 22 G needle Medications (Right): 2 mL sodium hyaluronate 16.8 MG/2ML Medications (Left): 2 mL sodium hyaluronate 16.8 MG/2ML Outcome: tolerated well, no immediate complications Consent was given by the patient. [facility] No Panel Informationon 05-20 Eliane Yoo MA 05/20/2024 2:58 PM L Inj/Asp: bilateral knee on 05/20/2024 2:25 PM Indications: diagnostic evaluation Details: 22 G needle Medications (Right): 2 mL sodium hyaluronate 16.8 MG/2ML Medications (Left): 2 mL sodium hyaluronate 16.8 MG/2ML Outcome: tolerated well, no immediate complications Consent was given by the patient. [facility] Radiology Study observation (narrative) [facility] XR Knee - left 3 [facility] Result: Multiple weightbearing views (AP, Lateral and sunrise) are reviewed for the permanent PACS record. Advanced grade 3-4 degenerative changes are present of the bilateral knee. No fracture, dislocation, tumor or infection seen. Images are reviewed with the patient at length. [facility] XR Knee - right 3 [facility] Result: Multiple weightbearing views (AP, Lateral and sunrise) are reviewed for the permanent PACS record. Advanced grade 3-4 degenerative changes are present of the bilateral knee. No fracture, dislocation, tumor or infection seen. Images are reviewed with the patient at length. [facility] Healthcare Main OR Intraoperative Recor don 05-13-2024 Main OR Intraoperative Record Main OR Intraoperative Record IntraOp Document Type FT Summary Primary Physician: Steve VAZQUEZ MD Finalized Date/Time: 05/13/24 10:26:02 Pt. Name: MICHELLE RODRIGUEZ Archie McallisterB./Sex: 1960 Female Med Rec #: [id number] Physician: Steve VAZQUEZ MD Financial #: [id number] Pt. Type: O Room/Bed: / Admit/Disch: 05/12/24 06:46:31 - 05/12/24 23:59:59 Institution: Case Times FT Entry 1 Patient Times In Room 05/12/24 07:56:00 Out Room 05/12/24 08:18:00 Procedure Times Start 05/12/24 08:00:00 Stop 05/12/24 08:16:00 Anesthesia Times Start 05/12/24 07:56:00 Stop 05/12/24 08:18:00 Time at [facility] 05/12/24 08:05:00 Last Modified By: Mallory HARRY, Rosangela Giraldo 05/12/24 08:17:53 General Comments: 05/13/24 Chart opened to review and send charges [facility] CSFA Case Attendance FT Entry 1 Entry 2 Entry 3 Case Attendee Bebeto Sawyer CRNA, MD, Steve Tejada RN, Rosangela Giraldo Role Performed PRACTICAL NURSE CLINICAL COORDINATOR Surgeon - Primary Retail Pharmacy Manager - Primary Time In 05/12/24 07:56:00 05/12/24 07:56:00 05/12/24 07:56:00 Time Out 05/12/24 08:18:00 05/12/24 08:18:00 05/12/24 08:18:00 Procedure COLONOSCOPY(.) COLONOSCOPY(.) COLONOSCOPY(.) Comments Dr. Ford supervising case Last Modified By: Mallory RN, Rosangela Tejada RN, Rosangela Tejada RN, Rosangela F 05/12/24 08:17:58 F 05/12/24 08:17:58 F 05/12/24 08:17:58 Entry 4 Case Attendee Esteban Watson Role Performed Scrub - Primary Time In 05/12/24 07:56:00 Time Out 05/12/24 08:18:00 Procedure COLONOSCOPY(.) Comments Last Modified By: Rosangela Tejada RN 05/12/24 08:17:58 Perioperative Protocols FT Pre-Care Text: Implements protective measures prior to operative or invasive procedure, confirms identity before the operative or invasive procedure, verifies operative procedure, surgical site, and laterality Entry 1 Procedure(s) COLONOSCOPY(.) Patient Identity Birthday, ID Band Verified (select at Check, Patient least 2): Participation Consents / H and P Anesthesia Consent, Operative Site N/A Verified H&P, Surgery/Procedure Marking Verified Consent Surgical Site No Laterality Verified n/a Verified Procedure Verified Yes Correct Patient Yes Position Verified Availability Equipment, Medication Prep Dry n/a Verified (If Applicable) PreOp Antibiotic No Time Out Bebeto Sawyer CRNA, Given Participants Steve VAZQUEZ MD, Dendinger RN, Madaline F, Sparks, Micala E Time Out Complete 05/12/24 07:57:00 Outcomes Met? Yes Last Modified By: Rosangela Tejada RN 05/12/24 07:59:45 Post-Care Text: The patient is free from signs and symptoms of injury caused by extraneous objects Allergy Information FT Pre-Care Text: Verifies allergies Entry 1 Allergies Reviewed? Yes Allergies Reviewed Self/Patient With Outcomes Met? Yes Last Modified By: Rosangela Tejada RN 05/12/24 07:59:51 Post-Care Text: The patient received appropriate medication(s) safely administered during the perioperative period Surgical Procedures FT Entry 1 Procedure Description Procedure COLONOSCOPY Modifiers . Surgeon Description Colonoscopy Primary Procedure Yes Primary Surgeon Steve VAZQUEZ MD Start 05/12/24 08:00:00 Stop 05/12/24 08:16:00 Anesthesia Type General Surgical Service General Wound Class 2 - Clean-Contaminated Last Modified By: Rosangela Tejada RN 05/12/24 08:16:48 General Case Data FT Pre-Care Text: Classifies surgical wound, implements aseptic technique, initiates traffic control Entry 1 Case Information OR ENDO 2 FT Case Level Level 2 Wound Class 2 - Clean-Contaminated Specialty General ASA Class 3 Preop Diagnosis Positive stool Postop Same As Preop No Postop Diagnosis Sigmoid colon Outcomes Met? Yes diverticulosis Last Modified By: Rosangela Tejada RN 05/12/24 08:16:46 Post-Care Text: The patient is free from signs and symptoms of infection Skin Assessment (Pre Procedure) FT Pre-Care Text: Implements protective measures to prevent skin/ tissue injury due to thermal or mechanical sources Evaluates for signs and symptoms of physical injury to skin and tissue Entry 1 Skin Integrity Intact, Lambert, Warm, & Skin Abnormality No Dry Outcomes Met? Yes Last Modified By: Mallory HARRY, Rosangela Giraldo 05/12/24 08:00:30 Post-Care Text: The patient is free from signs and symptoms of injury caused by extraneous objects Patient Positioning FT Pre-Care Text: Identifies physical alterations that require additional precautions for procedure-specific positioning, verifies presence of prosthetics or corrective devices, positions the patient, evaluates the patient for signs and symptoms of injury as a result of positioning Entry 1 Procedure COLONOSCOPY(.) Body Position Lateral, right side up Feet Uncrossed? Yes Left Arm Position Resting at Side Right Arm Position Resting at Side Left Leg Position Extended Right Leg Position Extended Positioning Device Safe (more content not included)... Normal [facility] Reminderson 05-13-2024 Reminders Reminders From: Kary Ballard LPN To: N - Clinical; Sent: 05/13/2024 10:07:25 EST Show up: 04/11/2034 07:00:00 EDT Subject: colonoscopy recall Due Date/Time: 05/12/2034 07:00:00 EST Reminder/Recall Patient due for screening colonoscopy 05/12/2034. Normal [facility] Discharge Instructionson Discharge Instructions Discharge Instructions MICHELLE RODRIGUEZ :1960 Visit Date:05/12/2024 Inpatient Discharge Instructions Your Care Team Admitting Physician - Steve VAZQUEZ MD Referring Physician - Steve VAZQUEZ MD Reason for Your Visit POSITIVE STOOL Your Diagnosis Diverticulosis of sigmoid colon This Is Your Medications List aspirin (aspirin 325 mg Oral EC Tab) ferrous sulfate (ferrous sulfate 325 mg Tab) isosorbide mononitrate (isosorbide mononitrate 30 mg ER Tab) meloxicam (meloxicam 15 mg Tab) metoprolol (Metoprolol tartrate 50 mg Tab) nitroglycerin (nitroglycerin 0.4 mg sublingual Tab) simvastatin (simvastatin 20 mg Tab) Procedure History Cystourethroscopy with dilation of urethral stricture (09/23/2013), Cystourethroscopy with dilation of urethral stricture (04/29/2003), Rotator cuff repair, Superficial parotidectomy, Tubal ligation. Discharge Vitals Temperature (Temporal Artery) 36.6 ???C Heart Rate (Monitored) 55 Respiratory Rate 10 Blood Pressure 109/74 Height 165.1 cm Weight 99 kg BMI 36.32 What to do next Instructions From Your Doctor Event Name Event Result Discharge Activity Resume normal activities in 24 hours, Arrange for a responsible adult supervision for 24 hours Discharge Restrictions No driving for 24 hrs, Do not operate machinery or tools, Do not make important decisions for 24 hours, Do not drink alcoholic beverages for 24 hours Discharge Diet(s) Regular Call Your Doctor For Persistent or heavy bleeding, Temperature above 101.5 degrees, Redness, swelling, or pus at operative site, Severe pain at the operative site, Persistent vomiting Discharge Instructions Discharge Instructions New Follow Up Appointments after Discharge Follow Up with Steve VAZQUEZ When: Only if needed Where: [facility] [address] [place] [phone]- Business (1) Medications What How Much When Instructions Next Dose Unchanged aspirin (aspirin 325 mg Oral EC Tab) 1 Tablets By Mouth Every day Unchanged ferrous sulfate (ferrous sulfate 325 mg Tab) 1 Tablets By Mouth Every day Unchanged isosorbide mononitrate (isosorbide mononitrate 30 mg ER Tab) 1 Tablets By Mouth Once a day (in the morning) Unchanged meloxicam (meloxicam 15 mg Tab) 1 Tablets By Mouth Every day Unchanged metoprolol (Metoprolol tartrate 50 mg Tab) 1 Tablets By Mouth 2 times a day Unchanged nitroglycerin (nitroglycerin 0.4 mg sublingual Tab) 1 Tablets Sublingual Every 5 minutes as needed for for chest pain Unchanged simvastatin (simvastatin 20 mg Tab) 1 Tablets By Mouth Once a day (in the evening) Test Results No qualifying data available. Allergies No Known Allergies No Known Medication Allergies Problems Ongoing - Any problem that you are currently receiving treatment for. Adrenal gland hematoma BMI 36.0-36.9,adult Class 3 obesity Former smoker GERD (gastroesophageal reflux disease) History of recurrent UTI (urinary tract infection) Hyperlipidemia Hypertension Mass of parotid gland Migraines Occult blood positive stool Other urethral stricture, female Positive fecal occult blood test Urinary frequency Uterine leiomyoma Vitamin D deficiency [employer] Diverticulosis Many people have small pouches in their colon called diverticulum. The diverticulum bulge outward through weak spots in the colon. You could have one or more of these pouches in the colon. The condition of having these pouches in the colon is called diverticulosis or diverticular disease. Diverticulosis is usually diagnosed by tests to evaluate something else. For example, you may have had a colonoscopy to screen for colon cancer when the diverticulosis was found. Most people with diverticulosis do not have any discomfort or problems. If symptoms develop, they may include mild cramps, bloating, and constipation. A complication of this condition is called diverticulitis. This is when the diverticulum become inflamed and infected. How to treat diverticulosis: Increasing the amount of fiber in the diet may reduce symptoms of diverticulosis and prevent complications such as diverticulitis (infected diverticuli). Fiber keeps stool soft and lowers pressure inside the colon so that bowel contents can move through easily. You should eat 20 to 35 grams of fiber each day. The table below shows the amount of fiber in some foods that you can easily add to your diet. Adding fiber slowly may decrease the bloating and fullness sometimes felt with an immediate high fiber diet. The doctor may also recommend taking a fiber product such as Citrucel or Metamucil once a day. In the past people with diverticulosis were to avoid nuts, corn, and seeds. This has not been found to be true. If you find that certain foods create cramping or bloating, avoid that food. Foods high in fiber include: Fresh fruits, fresh vegeta (more content not included)... Normal [facility] Comment on above: Result Comment: Elec tronically Signed By: Jack HARRY, Ramona\.lloyd\Date and Time Signed: 05/12/24 08:27 EST Inpatient Patient Summaryon 05-12-2024 Inpatient Patient Summary Inpatient Patient Summary [place] [id number] [facility] Clinical Discharge Instructions PERSON INFORMATION Name: MICHELLE RODRIGUEZ MRN: PHYSICIANS Admitting Physician: Steve VAZQUEZ MD Attending Physician: Steve VAZQUEZ MD PCP: Maggie Baldwin MD Discharge Diagnosis: Diverticulosis of sigmoid colon Comment: PATIENT EDUCATION INFORMATION Instructions: Medication Leaflets: Follow up: With: Address: When: Steve GEORGE [address], [address], [facility] [address] [place] [phone] Business (1) , only if needed MEDICATION LIST Medications to Continue with No Changes Other Medications aspirin (aspirin 325 mg Oral EC Tab) 1 Tablets By Mouth every day. ferrous sulfate (ferrous sulfate 325 mg Tab) 1 Tablets By Mouth every day. isosorbide mononitrate (isosorbide mononitrate 30 mg ER Tab) 1 Tablets By Mouth once a day (in the morning). meloxicam (meloxicam 15 mg Tab) 1 Tablets By Mouth every day. metoprolol (Metoprolol tartrate 50 mg Tab) 1 Tablets By Mouth 2 times a day. nitroglycerin (nitroglycerin 0.4 mg sublingual Tab) 1 Tablets Sublingual every 5 minutes as needed for chest pain. simvastatin (simvastatin 20 mg Tab) 1 Tablets By Mouth once a day (in the evening). Comment: Normal [facility] Main OR PACU II Recordon Main OR PACU II Record Main OR PACU II Record PACU Phase II Document Type FT Summary Primary Physician: Steve VAZQUEZ MD Finalized Date/Time: 05/12/24 09:10:29 Pt. Name: MICHELLE RODRIGUEZ/Sex: 1960 Female Med Rec #: [id number] Physician: Steve VAZQUEZ MD Financial #: [id number] Pt. Type: O Room/Bed: / Admit/Disch: 05/12/24 06:46:31 - Institution: Case Times PACU II FT Pre-Care Text: Identifies barriers to communication and implements measures to provide psychological support and determines knowledge level Develops individualized plan of care, and ensures continuity of care Maintains patient's dignity and privacy, and maintains patient confidentiality Identifies and reports philosophical, cultural, and spiritual beliefs and values Identifies individual values and wishes concerning care administers prescribed antibiotic therapy and immunizing agents as ordered, Evaluates postoperative tissue perfusion Implements thermoregulation measures, and monitors body temperature Evaluates postoperative respiratory status Evaluates postoperative cardiac status Evaluates postoperative neurological status Assesses pain control, collaborated in initiating patient-controlled analgesia and implements alternative methods of pain control Verifies allergies, administers prescribed medications and solutions, evaluates response to medications Entry 1 In PACU II 05/12/24 08:20:00 Discharge from PACU 05/12/24 08:57:00 II Outcomes Met? Yes Last Modified By: Ramona Santiago RN 05/12/24 09:10:23 Post-Care Text: The patient demonstrates knowledge of the expected response to the operative or invasive procedure The patient's care is consistent with the individualized perioperative plan of care The patient's right to privacy is maintained The patient's value system, lifestyle, ethnicity, and culture are considered, respected, and incorporated into the perioperative plan of care The patient participates in decisions affecting his or her perioperative plan of care. The patient is free from signs and symptoms of infection The patient has wound/tissue perfusion consistent with or improved from baseline levels established preoperatively The patient is at or returning to normothermia at the conclusion of the immediate postoperative period The patient's respiratory function is consistent with or improved from baseline levels established preoperatively The patient's cardiovascular status is consistent with or improved from baseline levels established preoperatively The patient's neurological status is consistent with or improved from baseline levels established preoperatively The patient demonstrates and/or reports adequate pain control throughout the perioperative period The patient received appropriate medication(s), safely administered during the perioperative period Finalized By: Ramona Santiago RN Document Signatures Signed By: Ramona Santiago RN 05/12/24 09:10 Normal [facility] Main OR Preoperative Recordo n 05-12-2024 Main OR Preoperative Record Main OR Preoperative Record Holding Area Document Type FT Summary Primary Physician: Steve VAZQUEZ MD Finalized Date/Time: 05/12/24 06:58:01 Pt. Name: MICHELLE RODRIGUEZ/Sex: 1960 Female Med Rec #: [id number] Physician: Steve VAZQUEZ MD Financial #: [id number] Pt. Type: O Room/Bed: / Admit/Disch: 05/12/24 06:46:31 - Institution: Case Times Holding FT Pre-Care Text: Verifies consent for planned procedure, identifies individual values and wishes concerning care, includes family members in perioperative teaching Secures patient's records' belongings, and valuables, maintains patient's dignity and privacy, and maintains patient confidentiality Entry 1 In Holding 05/12/24 06:53:00 Outcomes Met? Yes Last Modified By: Rosangela Tejada RN 05/12/24 06:57:08 Post-Care Text: The patient participates in decisions affecting his or her perioperative plan of care The patient's right to privacy is maintained Surgery Checklist FT Entry 1 Patient Birthday, ID Band Procedure History and Physical, Identification: Check, Patient Verification: Surgical Consent, With Participation Patient NPO after Midnight: Yes Date/Time: 05/12/24 04:00:00 Personal Items: Glasses, Jewelry Personal Items RING, GLASSES, CLOTHES, Comment: SHOES Limitations: N/A Complaints of Pain: No Pain Comment: DENIES Operative Site n/a Marking: Marked By: N/A Availability Equipment Verified: Does Patient Smoke No Patient states Yes Comment - Adult STEVEP- SPOUSE postop adult Supervision supervision available Case Cancelled in No Holding Area see comments below for reason Last Modified By: Rosangela Tejada RN 05/12/24 06:57:59 General Comments: Pt finished colon prep at 0400, states stool is clear liquid yellow, has been NPO since. /,rn Finalized By: Rosangela Tejada RN Document Signatures Signed By: Rosangela Tejada RN 05/12/24 06:58 Normal [facility] Outpatient Surgery Discharge Instructionon 05-12-2024 Outpatient Surgery Discharge Instruction Outpatient Surgery Discharge Instruction [place] [id number] Patient Discharge Instructions PERSON INFORMATION Name: MICHELLE RODRIGUEZ Date of : 1960 Current Date: 05/12/2024 08:24:36 PHYSICIANS Admitting Physician: Steve VAZQUEZ MD Discharge Diagnosis: Diverticulosis of sigmoid colon MICHELLE RODRIGUEZ has been given the following list of follow-up instructions, prescriptions, and patient education materials: PATIENT FOLLOW-UP INFORMATION Diet: Regular Discharge Activity: Resume normal activities in 24 hours, Arrange for a responsible adult supervision for 24 hours Discharge Restrictions: No driving for 24 hrs, Do not operate machinery or tools, Do not make important decisions for 24 hours, Do not drink alcoholic beverages for 24 hours Call Your Doctor For: Persistent or heavy bleeding, Temperature above 101.5 degrees, Redness, swelling, or pus at operative site, Severe pain at the operative site, Persistent vomiting IF UNABLE TO CONTACT YOUR PHYSICIAN AND YOU FEEL IT IS AN EMERGENCY, GO TO THE NEAREST EMERGENCY ROOM OR CALL 911 EVE Baltazar LISA M, have received the attached patient education materials/instructions and have verbalized understanding: May we do a follow up call? Yes No I was present when discharge instructions were given Patient Signature Date Clinican/Nurse Signature _ Date Follow up: With: Address: When: [address], [address], [place] [id number] Business (1) , only if needed Pharmacy Information: You may receive a survey from [facility] asking you to rate your care experience. Your feedback is important and will help us understand what we do well and how we can improve the quality of care we provide to you, your loved ones and our community. It???s an honor to serve you. Thank you for choosing [facility] HERE ARE THE MEDICATION CHANGES THAT OCCURRED DURING YOUR HOSPITAL STAY Medications to Continue with No Changes Other Medications aspirin (aspirin 325 mg Oral EC Tab) 1 Tablets By Mouth every day. ferrous sulfate (ferrous sulfate 325 mg Tab) 1 Tablets By Mouth every day. isosorbide mononitrate (isosorbide mononitrate 30 mg ER Tab) 1 Tablets By Mouth once a day (in the morning). meloxicam (meloxicam 15 mg Tab) 1 Tablets By Mouth every day. metoprolol (Metoprolol tartrate 50 mg Tab) 1 Tablets By Mouth 2 times a day. nitroglycerin (nitroglycerin 0.4 mg sublingual Tab) 1 Tablets Sublingual every 5 minutes as needed for chest pain. simvastatin (simvastatin 20 mg Tab) 1 Tablets By Mouth once a day (in the evening). PATIENT EDUCATION INFORMATION Instructions: Medication Leaflets: [facility] Ambulatory Visit Summaryon 1 06-30-2023 Ambulatory Visit Summary Ambulatory Visit Summary MICHELLE RODRIGUEZ :1960 MRN: Visit Date:04/30/2024 Ambulatory Visit Instructions Your Care Team Attending Physician - GEORGE BATES, Steve Clinton Primary Care Physician - Maggie Baldwin MD Referring Physician - Maggie Baldwin MD This Is Your Medications List Contact prescribing physician if questions or concerns aspirin (aspirin 325 mg Oral EC Tab) ferrous sulfate (ferrous sulfate 325 mg Tab) isosorbide mononitrate (isosorbide mononitrate 30 mg ER Tab) meloxicam (meloxicam 15 mg Tab) metoprolol (Metoprolol tartrate 50 mg Tab) nitroglycerin (nitroglycerin 0.4 mg sublingual Tab) simvastatin (simvastatin 20 mg Tab) Procedures Performed Cystourethroscopy with dilation of urethral stricture (09/23/2013), Cystourethroscopy with dilation of urethral stricture (04/29/2003), Rotator cuff repair, Superficial parotidectomy, Tubal ligation. Discharge Vitals Heart Rate (Peripheral) 76 Respiratory Rate 16 Blood Pressure 132/100 Height 165.1 cm Height 65 in Weight 99 kg Weight 218.257 lb BMI 36.32 Medications What How Much When Instructions Unchanged aspirin (aspirin 325 mg Oral EC Tab) 1 Tablets By Mouth Every day Contact prescribing physician if questions or concerns Unchanged ferrous sulfate (ferrous sulfate 325 mg Tab) 1 Tablets By Mouth Every day Contact prescribing physician if questions or concerns Unchanged isosorbide mononitrate (isosorbide mononitrate 30 mg ER Tab) 1 Tablets By Mouth Once a day (in the morning) Contact prescribing physician if questions or concerns Unchanged meloxicam (meloxicam 15 mg Tab) 1 Tablets By Mouth Every day Contact prescribing physician if questions or concerns Unchanged metoprolol (Metoprolol tartrate 50 mg Tab) 1 Tablets By Mouth 2 times a day Contact prescribing physician if questions or concerns Unchanged nitroglycerin (nitroglycerin 0.4 mg sublingual Tab) 1 Tablets Sublingual Every 5 minutes as needed for for chest pain Contact prescribing physician if questions or concerns Unchanged simvastatin (simvastatin 20 mg Tab) 1 Tablets By Mouth Once a day (in the evening) Contact prescribing physician if questions or concerns Allergies No Known Allergies No Known Medication Allergies Problems Ongoing - Any problem that you are currently receiving treatment for. Adrenal gland hematoma BMI 36.0-36.9,adult Class 3 obesity Former smoker GERD (gastroesophageal reflux disease) History of recurrent UTI (urinary tract infection) Hyperlipidemia Hypertension Mass of parotid gland Migraines Occult blood positive stool Other urethral stricture, female Urinary frequency Uterine leiomyoma Vitamin D deficiency Patient Survey You may receive a survey via text or e-mail asking about your office visit. Please share your experience with us by completing your survey. We appreciate your feedback and thank you for choosing us for your care. Normal [facility] CT ABDOMEN PELVIS W IV CONTR Yael [...] Hayder Nixon DO 12/11/23 Final result Normal [facility] Creatinineon 12-05-2023 Creatinine [Mass/Vol] 0.9 mg/dL 0.5 - 0.9 mg/dL [facility] Est, Glom Filt Rate 72 - [facility] Comment on above: These results are not intended for use [...] following therapy that affects renal tubular secretion. [facility] Creatinine w/GFRon Creatinine [Mass/Vol] 0.9 mg/dL Normal 0.5-0.9 [facility] Comment on above: Performed By: #### C REG #### [facility] [address] [place], [place] [id number] Night Baker: Krissy Sweet MD GFR/1.73 sq M.predicted among non-blacks MDRD (S/P/Bld) [Vol rate/Area] 72 mL/min/{1.73_m2} Normal >60 [facility] Comment on above: Result Comment: These [...] secretion. Performed By: #### C REG #### [facility] [address] [place], [place] [id number] Night Baker: Krissy Sweet MD US NON OB TRANSVAGINALon US NON OB TRANSVAGINAL UTERUS: Anteverted uterus with a heterogeneous echotexture ENDO: measures 3.5 mm RT. OVARY: Not visualized LT. OVARY: Not visualized Questionable adenomyosis of the uterus? FIBROIDS: #1 Mid posterior uterus measures 2.8 x 1.9 x 4.0 cm #2 Mid Right uterus measures 2.0 x 1.7 x 1.8 cm Interpreted by: Emily Yoo, [employer] - Cinthya Agrawal DO Signed by: Cinthya Cano DO 12/05/23 Final result Normal [facility] Cult,Genitalon 12-03-2023 Cult,Genital Specimen Description .VAGINA Special Requests Site: Genital Culture STREPTOCOCCI, BETA HEMOLYTIC GROUP B LIGHT GROWTH NORMAL URO-GENITAL DENISE NEGATIVE FOR NEISSERIA GONORRHOEAE Report Status FINAL 12/03/2023 Normal [facility] Comment on above: Performed By: #### G EC #### [place] [id number] [place] [address] Night Baker: Kenton Marcelino MD [facility] [address] [place] [address] [place] [address] Night Baker: Krissy Sweet MD HPV DNA High Riskon 12-03-19 24 HPV Interp [facility] Comment on above: Result Comment: This [...] purposes. Performed By: #### H PVH #### [address] [address] Night Baker: Kenton Marcelino MD HPV Type 16 Not detected [facility] Comment on above: Performed By: #### H PVH #### [address] [address] Night Baker: Kenton Marcelino MD HPV Type 18 Not detected [facility] Comment on above: Performed By: #### H PVH #### [address] [address] Night Baker: Kenton Marcelino MD Other High Risk HPV Not detected [facility] Comment on above: Performed By: #### H PVH #### [address] [address] Night Baker: Kenton Marcelino MD HPV DNA High Riskon 11-30-19 24 HPV Sample .THIN PREP [facility] Comment on above: Performed By: #### H PVH #### [address] [address] Night Baker: Kenton Marcelino MD Source CERVICAL MATERIAL [facility] Comment on above: Performed By: #### H PVH #### [address] [address] Night Baker: Kenton Marcelino MD Vaginitis DNA Probeon 2023 Olena Negative [facility] Comment on above: Result Comment: for Olena sp. Method of testing is a DNA probe intended for detection and identification of Olena species, Gardnerella vaginalis, and Trichomonas vaginalis nucleic acid in vaginal fluid specimens from patients with symptoms of vaginitis/vaginosis. Performed By: #### V AGP #### [address] [address] Night Baker: Kenton Marcelino MD [facility] [address] [place] [address] [place] [address] Night Baker: Krissy Sweet MD Gardnerella Negative [facility] Comment on above: Result Comment: for Gardnerella vaginalis Performed By: #### V AGP #### [address] [address] Night Baker: Kenton Marcelino MD [address] [place] [address] Night Baker: Krissy Sweet MD Trichomonas Negative [facility] Comment on above: Result Comment: for Trichomonas Vaginalis Performed By: #### V AGP #### [address] [address] Night Baker: Kenton Marcelino MD [facility] [address] [place] [address] [place] [address] Night Baker: Krissy Sweet MD Cytology Reporton 11-29-2023 Cytology report Cyto stain.thin prep Doc (Cvx/Vag) (NOTE) Path Number: [id number] DIAGNOSIS Imaged ThinPrep Pap - Cervical (1 monolayer slide): Specimen Adequacy: Satisfactory for evaluation. - Endocervical/transforma tion zone component present. Descriptive Diagnosis: Negative for [...] or for other forensic purposes. Performed at [address] [address] ([phone] Source of Specimen: A: Imaged ThinPrep Pap - Cervical (1 monolayer slide) HPV Reflex?................ ......HPV Regardless Clinical History Postmenopausal Z12.4 Encounter for screening for malignant neoplasm of cervix Processing Lab: [address] [address] Interpretation performed at [address] [address] This Pap Test has been evaluated with [...] result. GYNECOLOGIC CYTOLOGY REPORT Patient Name: MICHELLE RODRIGUEZ [facility] Rec: [id number] [facility]ZO CONSULTING PATHOLOGISTS [facility] ANATOM[facility] PATHOLOG[facility] [address], [place] [address] Normal [facility] Vaginitis DNA Probeon 2023 Source .VAGINAL SWAB Normal [facility] Comment on above: Performed By: #### V AGP #### [address] [address] Night Baker: Kenton Marcelino MD [facility] [address] [place] [place] [address] Night Baker: Krissy Sweet MD MG MAMM SCREEN 3D SHELIA CADon 10-17-2022 MG MAMM SCREEN 3D SHELIA CAD Patient: MICHELLE RODRIGUEZ Exam Date: 10/17/2022 : 1960 Gender:F Ordering : DR MAGGIE BALDWIN . Admission #: [id number] Family : Order #: [id number] CLICK HERE TO VIEW EXAM RADIOLOGY REPORT [...] unknown cancer at age 80. LOCATION: [facility] BREAST COMPOSITION: Heterogeneously dense,which may obscure [...] MD on 10/18/2022 at 09:12 Normal [facility] OCC BLD IMMUNO SCREENon 04-2 OCCULT BLOOD Negative Normal NEGATIVE [facility] Comment on above: Performed By: #### O BSCRN #### [facility] [address] [place] [address] Dr. Estrella Curtis INSULINon 08-31-2022 Insulin 4.5 uIU/mL Normal 2.6-24.9 [facility] Comment on above: Performed By: #### I NSULIN #### [facility] [address] [place] [address] Dr. Estrella Curtis CBC AUTO DIFFon 08-29-2022 BASO # 0.0 103/ul Normal 0.0-0.1 [facility] Comment on above: Performed By: #### C BC #### [facility] [address] [place] [address] Dr. Estrella Curtis Basophils/100 WBC (Bld) 0.4 % Normal 0.2-2.0 [facility] Comment on above: Performed By: #### C BC #### [facility] [address] [place] [address] Dr. Estrella Curtis EO # 0.1 103/ul Normal 0.0-0.7 [facility] Comment on above: Performed By: #### C BC #### [facility] [address] [place] [address] Dr. Estrella Curtis Eosinophils/100 WBC (Bld) 2.8 % Normal 0.9-7.0 [facility] Comment on above: Performed By: #### C BC #### [facility] [address] [place] [address] Dr. Estrella Curtis Erythrocyte distribution width (RBC) [Ratio] 13.3 % Normal 11.0-15.0 [facility] Comment on above: Performed By: #### C BC #### [facility] [address] [place] [address] Dr. Estrella Curtis Hematocrit (Bld) [Volume fraction] 37.4 % Normal 36.0-48.0 [facility] Comment on above: Performed By: #### C BC #### [facility] [address] [place] [address] Dr. Estrella Curtis Hemoglobin (Bld) [Mass/Vol] 12.4 g/dL Normal 12.0-16.0 [facility] Comment on above: Performed By: #### C BC #### [facility] [address] [place] [address] Dr. Estrella Curtis IG # 0.01 10e3/ul Normal 0.00-0.03 [facility] Comment on above: Performed By: #### C BC #### [facility] [address] [place] [address] Dr. Estrella Curtis IG % 0.2 % Normal 0.0-0.5 [facility] Comment on above: Performed By: #### C BC #### [facility] [address] [place] [address] Dr. Estrella Curtis LYMPH # 1.6 103/ul Normal 1.2-3.8 [facility] Comment on above: Performed By: #### C BC #### [facility] [address] [place] [address] Dr. Estrella Curtis Lymphocytes/100 WBC (Bld) 34.3 % Normal 20.5-60.0 [facility] Comment on above: Performed By: #### C BC #### [facility] [address] [place] [address] Dr. Estrella Curtis MANUAL DIFF REQ NO Normal [facility] Comment on above: Performed By: #### C BC #### [facility] [address] [place] [address] Dr. Estrella Curtis MCH (RBC) [Entitic mass] 29.7 pg Normal 26.7-34.0 [facility] Comment on above: Performed By: #### C BC #### [facility] [address] [place] [address] Dr. Estrella Curtis MCHC (RBC) [Mass/Vol] 33.2 g/dL Normal 29.9-35.2 [facility] Comment on above: Performed By: #### C BC #### [facility] [address] [place] [address] Dr. Estrella Curtis MCV (RBC) [Entitic vol] 89.5 fL Normal 81.0-99.0 [facility] Comment on above: Performed By: #### C BC #### [facility] [address] [place] [address] Dr. Estrella Curtis MONO # 0.4 103/ul Normal 0.3-0.8 [facility] Comment on above: Performed By: #### C BC #### [facility] [address] [place] [address] Dr. Estrella Curtis Monocytes/100 WBC (Bld) 9.2 % Normal 1.7-12.0 [facility] Comment on above: Performed By: #### C BC #### [facility] [address] [place] [address] Dr. Estrella Curtis NEUT # 2.4 103/ul Normal 1.4-6.5 [facility] Comment on above: Performed By: #### C BC #### [facility] [address] [place] [address] Dr. Estrella Curtis Neutrophils/100 WBC (Bld) 53.1 % Normal 43.0-75.0 [facility] Comment on above: Performed By: #### C BC #### [facility] [address] [place] [address] Dr. Estrella Curtis Platelet mean volume (Bld) [Entitic vol] 10.1 fL Normal 9.5-13.5 [facility] Comment on above: Performed By: #### C BC #### [facility] [address] [place] [address] Dr. Estrella Curtis PLT 276 103/ul Normal 150-450 [facility] Comment on above: Performed By: #### C BC #### [facility] [address] [place] [address] Dr. Estrella Curtis RBC 4.18 106/ul Critically low 4.20-5.40 [facility] Comment on above: Performed By: #### C BC #### [facility] [address] [place] [address] [address] Estrella Curtis WBC 4.6 103/ul Normal 4.0-11.0 [facility] Comment on above: Performed By: #### C BC #### [facility] [address] [place] [address] [address] Estrella Curtis FREE THYROXINE INDEX T7on FTI 3.14 Normal 1.30-4.50 [facility] Comment on above: Performed By: #### T SH, T7, LIPID, CMP ####[facility] [id number] [place] [address]Dr. Estrella Curtis T3U 33.0 % Normal 30.0-39.0 [facility] Comment on above: Performed By: #### T SH, T7, LIPID, CMP ####[facility] [id number] [place] [address]Dr. Estrella Curtis T4 [Mass/Vol] 9.50 ug/dL Normal 4.80-13.90 [facility] Comment on above: Performed By: #### T SH, T7, LIPID, CMP ####[facility] [id number] [place] [address]Dr. Estrella Curtis GLYCOHEMOGLOBIN A1Con 2022 ADA RECOMMENDATION SEE BELOW Normal [facility] Comment on above: Result Comment: ADA RECOMMENDED LIMIT 4.0 - 6.0 ADA THERAPEUTIC TARGET < 7.0 ACTION SUGGESTED > 7.0 Performed By: #### A 1C #### [facility] [address] [place] [address] [address] Estrella Curtis Glucose [Mass/Vol] 120 mg/dL Normal [facility] Comment on above: Performed By: #### A 1C #### [facility] [address] [place] [address] [address] Estrella Curtis HbA1c (Bld) [Mass fraction] 5.8 % Normal 4.5-6.2 [facility] Comment on above: Performed By: #### A 1C #### [facility] [address] [place] [address] [address] Estrella Curtis IRONon 08-29-2022 Iron [Mass/Vol] 82.0 ug/dL Normal 50.0-170.0 [facility] Comment on above: Performed By: #### I MONIKA #### [facility] [address] [place] [address] [address] Estrella Curtis LIPID PROFILEon 08-29-2022 CHOL-HDL RATIO NORM SEE BELOW Normal [facility] Comment on above: Result Comment: 3.3 - 4.4 LOW RISK 4.4 - 7.1 AVERAGE RISK 7.1 - 11.0 MODERATE RISK >11.0 HIGH RISK Performed By: #### T SH, T7, LIPID, CMP #### [facility] [address] [place] [address] [address] Estrella Curtis Cholesterol [Mass/Vol] 203 mg/dL Critically high <=200 [facility] Comment on above: Performed By: #### T SH, T7, LIPID, CMP #### [facility] [address] [place] [address] [address] Estrella Curtis Cholesterol in HDL [Mass/Vol] 62 mg/dL Critically high 40-60 [facility] Comment on above: Performed By: #### T SH, T7, LIPID, CMP #### [facility] [address] [address] [address] Estrella Curtis Cholesterol in LDL [Mass/Vol] 122.2 mg/dL Normal [facility] Comment on above: Performed By: #### T SH, T7, LIPID, CMP #### [facility] [address] [address] [address] Estrella Curtis Cholesterol.total/Ch olesterol in HDL [Mass ratio] 3.3 {ratio} Normal [facility] Comment on above: Performed By: #### T SH, T7, LIPID, CMP #### [facility] [address] [address] [address] Estrella Curtis HDL NORMAL > or = 60 mg/dl - LO W CARDIOVASCULAR RISK <40 mg/dl - HIGH CARDIOVASCULAR RISK Normal [facility] Comment on above: Performed By: #### T SH, T7, LIPID, CMP #### [facility] [address] [address] [address] Estrella Curtis LDL CALC NORMAL SEE BELOW Normal [facility] Comment on above: Result Comment: <100 mg/dl OPTIMAL 100 - 129 mg/dl NEAR OR ABOVE OPTIMAL 130 - 159 mg/dl BORDERLINE HIGH 160 - 189 mg/dl HIGH >190 mg/dl VERY HIGH Performed By: #### T SH, T7, LIPID, CMP #### [facility] [address] [address] [address] Estrella Curtis Triglyceride [Mass/Vol] 94 mg/dL Normal <=150 [facility] Comment on above: Performed By: #### T SH, T7, LIPID, CMP #### [facility] [address] [address] [address] Estrella Curtis VLDL CALC 18.8 mg/dL Normal [facility] Comment on above: Performed By: #### T SH, T7, LIPID, CMP #### [facility] [address] [address] [address] Estrella Curtis PROF 14(COMP METB)on 023 Albumin [Mass/Vol] 4.3 g/dL Normal 3.4-5.0 [facility] Comment on above: Performed By: #### T SH, T7, LIPID, CMP #### [facility] [address] [address] [address] Estrella Curtis Albumin/Globulin [Mass ratio] 1.3 {ratio} Normal [facility] Comment on above: Performed By: #### T SH, T7, LIPID, CMP #### [facility] [address] [address] [address] Estrella Curtis ALP [Catalytic activity/Vol] 84 U/L Normal 46-116 [facility] Comment on above: Performed By: #### T SH, T7, LIPID, CMP #### [facility] [address] [address] [address] Estrella Curtis ALT [Catalytic activity/Vol] 48 U/L Normal 14-59 [facility] Comment on above: Performed By: #### T SH, T7, LIPID, CMP #### [facility] [address] [address] [address] Estrella Curtis Anion gap [Moles/Vol] 12.0 mmol/L Normal [facility] Comment on above: Performed By: #### T SH, T7, LIPID, CMP #### [facility] [address] [place] [address] Dr. Estrella Curtis AST [Catalytic activity/Vol] 33 U/L Normal 15-37 [facility] Comment on above: Performed By: #### T SH, T7, LIPID, CMP #### [facility] [address] [place] [address] Dr. Estrella Curtis Bilirubin [Mass/Vol] 0.5 mg/dL Normal 0.2-1.0 [facility] Comment on above: Performed By: #### T SH, T7, LIPID, CMP #### [facility] [address] [place] [address] Dr. Estrella Curtis Calcium [Mass/Vol] 9.3 mg/dL Normal 8.5-10.1 [facility] Comment on above: Performed By: #### T SH, T7, LIPID, CMP #### [facility] [address] [place] [address] Dr. Estrella Curtis Chloride [Moles/Vol] 104 mmol/L Normal 98-107 [facility] Comment on above: Performed By: #### T SH, T7, LIPID, CMP #### [facility] [address] [place] [address] Dr. Estrella Curtis CO2 [Moles/Vol] 29.5 mmol/L Normal 21.0-32.0 [facility] Comment on above: Performed By: #### T SH, T7, LIPID, CMP #### [facility] [address] [place] [address] Dr. Estrelal Curtis Creatinine [Mass/Vol] 0.89 mg/dL Normal 0.55-1.02 [facility] Comment on above: Performed By: #### T SH, T7, LIPID, CMP #### [facility] [address] [place] [address] Dr. Estrella Curtis EGFR-AF LITHUANIAN >60 Normal >=60 [facility] Comment on above: Performed By: #### T SH, T7, LIPID, CMP #### [facility] [address] [place] [address] Dr. Estrella Curtis EGFR-NON AF LITHUANIAN >60 Normal >=60 [facility] Comment on above: Performed By: #### T SH, T7, LIPID, CMP #### [facility] [address] [place] [address] Dr. Estrella Curtis Globulin (S) [Mass/Vol] 3.2 g/dL Normal [facility] Comment on above: Performed By: #### T SH, T7, LIPID, CMP #### [facility] [address] [place] [address] Dr. Estrella Curtis Glucose [Mass/Vol] 97 mg/dL Normal 74-106 [facility] Comment on above: Performed By: #### T SH, T7, LIPID, CMP #### [facility] [address] [place] [address] Dr. Estrella Curtis Potassium [Moles/Vol] 4.5 mmol/L Normal 3.5-5.1 [facility] Comment on above: Performed By: #### T SH, T7, LIPID, CMP #### [facility] [address] [place] [address] Dr. Estrella Curtis Protein [Mass/Vol] 7.5 g/dL Normal 6.4-8.2 [facility] Comment on above: Performed By: #### T SH, T7, LIPID, CMP #### [facility] [address] [place] [address] Dr. Estrella Curtis Sodium [Moles/Vol] 141 mmol/L Normal 136-145 [facility] Comment on above: Performed By: #### T SH, T7, LIPID, CMP #### [facility] [address] [place] [address] Dr. Estrella Curtis Urea nitrogen [Mass/Vol] 15.0 mg/dL Normal 7.0-18.0 [facility] Comment on above: Performed By: #### T SH, T7, LIPID, CMP #### [facility] [address] [address] [address] Estrella Curtis Urea nitrogen/Creatinine [Mass ratio] 16.9 mg/mg Normal [facility] Comment on above: Performed By: #### T SH, T7, LIPID, CMP #### [facility] [address] [address] [address] Estrella Curtis TSHon 08-29-2022 TSH 5.036 uIU/mL Critically high 0.358-3.740 [facility] Comment on above: Performed By: #### T SH, T7, LIPID, CMP ####[facility] [address] [place], [place] [address]RhDr. Estrella Curtis Covid-19 PCR ([facility])on SARS-CoV-2 (COVID-19) RNA FRANCISCO J+probe Ql (Unsp spec) Not detected Normal NOT DETECTED [facility] Comment on above: Result Comment: When [...] for this test is supported by the Supervisor [place] of Health and Human Service's declaration that [...] be used). Performed By: #### C VDTBH ####[facility] [address] [id number]. Estrella Curtis INFLUENZA A AND B AGon 05-25 INFLUBNEGH SEE BELOW Normal [facility] Comment on above: Result Comment: Nega tive for Flu B protein antigen. Infection due to Flu B cannot be ruled out. Flu B antigen in the sample may be below the detection limit of the test. Performed By: #### I NFLUAB #### [facility] [address] [address] [address] Estrella Curtis INFLUENZA A AG Positive Abnormal NEGATIVE SEE COMMENT [facility] Comment on above: Performed By: #### I NFLUAB #### [facility] [address] [address] [address] Estrella Curtis INFLUENZA B AG Negative Normal NEGATIVE SEE COMMENT [facility] Comment on above: Performed By: #### I NFLUAB #### [facility] [address] [place] [address] Dr. Estrella Curtis INFLUPOSH SEE BELOW Normal [facility] Comment on above: Result Comment: NOTE : Live attenuated influenzae vaccine viruses can cause a positive result for a rapid influenza diagnostic test if administered up to 7 days prior to rapid testing. Performed By: #### I NFLUAB #### [facility] [address] [place] [address] Dr. Estrella Curtis INTERNAL CONTROLS Within Normal Limits Normal Wi thin Normal Limits [facility] Comment on above: Performed By: #### I NFLUAB #### [facility] [address] [place] [address] Dr. Estrella Curtis Vital Signs Date Time Vital Sign Value Performing Clinician Facility 10-31-2024 14:55-0400 Diastolic blood pressure 87 mm[Hg] Steve [employer] [facility] 10-31-2024 14:55-0400 Heart rate 73 /min Steve Duarte [facility] 10-31-2024 14:55-0400 Mean blood pressure 109 mm[Hg] Steve [employer] [facility] 10-31-2024 14:55-0400 Systolic blood pressure 151 mm[Hg] Steve [employer] [facility] 10-31-2024 14:54-0400 Heart rate 64 /min Steve [employer] [facility] 10-31-2024 14:54-0400 SaO2% (BldA) [Mass fraction] 96 % Steve Duarte [facility] 10-31-2024 14:54-0400 Diastolic blood pressure 86 mm[Hg] Steve Duarte [facility] 10-31-2024 14:54-0400 Mean blood pressure 103 mm[Hg] Steve Duarte [facility] 10-31-2024 14:54-0400 Systolic blood pressure 136 mm[Hg] Steve Duarte [facility] 10-31-2024 14:54-0400 Respiratory rate 16 /min Steve Duarte [facility] 10-30-2024 10:30-0400 Body height 165.1 cm Steve Duarte DO Work Phone: [facility] 10-30-2024 10:30-0400 Body mass index (BMI) [Ratio] 36.44 kg/m2 Steve Duarte DO Work Phone: [facility] 10-30-2024 10:30-0400 Body weight 99.34 kg Steve Duarte DO Work Phone: [facility] 06-03-2024 13:45-0500 Body height 165.1 cm Steve Duarte DO Work Phone: [facility] 06-03-2024 13:45-0500 Body mass index (BMI) [Ratio] 36.44 kg/m2 Steve Duarte DO Work Phone: [facility] 06-03-2024 13:45-0500 Body weight 99.34 kg Steve Duarte DO Work Phone: [facility] 05-27-2024 13:55-0500 Body height 165.1 cm Steve Duarte DO Work Phone: [facility] 05-27-2024 13:55-0500 Body mass index (BMI) [Ratio] 36.44 kg/m2 Steve Duarte DO Work Phone: [facility] 05-27-2024 13:55-0500 Body weight 99.34 kg Steve Duarte DO Work Phone: [facility] 05-20-2024 14:24-0500 Body height 165.1 cm Steve Duarte DO Work Phone: [facility] 05-20-2024 14:24-0500 Body mass index (BMI) [Ratio] 36.44 kg/m2 Steve Duarte DO Work Phone: [facility] 05-20-2024 14:24-0500 Body weight 99.34 kg Steve Duarte DO Work Phone: [facility] 05-12-2024 08:50-0500 Blood Pressure Location Steve FRANCISL [facility] 05-12-2024 08:50-0500 Diastolic blood pressure 83 mm[Hg] Steve NILL [facility] 05-12-2024 08:50-0500 Heart rate 44 /min Steve NILL [facility] 05-12-2024 08:50-0500 Mean blood pressure 103 mm[Hg] Steve NILL [facility] 05-12-2024 08:50-0500 Respiratory rate 12 /min Steve NILL [facility] 05-12-2024 08:50-0500 SaO2% (BldA) [Mass fraction] 98 % Tseve NILL [facility] 05-12-2024 08:50-0500 Systolic blood pressure 143 mm[Hg] Steve NILL [facility] 05-12-2024 08:35-0500 Blood Pressure Location Steve NILL [facility] 05-12-2024 08:35-0500 Diastolic blood pressure 84 mm[Hg] Steve NILL [facility] 05-12-2024 08:35-0500 Heart rate 48 /min Steve NILL [facility] 05-12-2024 08:35-0500 Mean blood pressure 98 mm[Hg] Steve NILL [facility] 05-12-2024 08:35-0500 Respiratory rate 14 /min Steve NILL [facility] 05-12-2024 08:35-0500 SaO2% (BldA) [Mass fraction] 97 % Steve NILL [facility] 05-12-2024 08:35-0500 Systolic blood pressure 127 mm[Hg] Steve NILL [facility] 05-12-2024 08:30-0500 Blood Pressure Location Steve NILL [facility] 05-12-2024 08:30-0500 Diastolic blood pressure 83 mm[Hg] Steve NILL [facility] 05-12-2024 08:30-0500 Heart rate 56 /min Steve NILL [facility] 05-12-2024 08:30-0500 Mean blood pressure 97 mm[Hg] Steve NILL [facility] 05-12-2024 08:30-0500 Respiratory rate 20 /min Steve NILL [facility] 05-12-2024 08:30-0500 SaO2% (BldA) [Mass fraction] 95 % Steve NILL [facility] 05-12-2024 08:30-0500 Systolic blood pressure 124 mm[Hg] Steve NILL [facility] 05-12-2024 08:20-0500 Body temperature 97.88 [degF] Steve NILL [facility] 05-12-2024 08:15-0500 Respiratory rate 13 /min Steve NILL [facility] 05-12-2024 08:10-0500 Respiratory rate 14 /min Steve NILL [facility] 05-12-2024 08:05-0500 Respiratory rate 17 /min Steve NILL [facility] 05-12-2024 07:10-0500 Body temperature 97.7 [degF] Steve NILL [facility] 04-30-2024 15:05-0500 Blood Pressure Location Steve NILL [facility] 04-30-2024 15:05-0500 Diastolic blood pressure 100 mm[Hg] Steve NILL [facility] 04-30-2024 15:05-0500 Heart rate 76 /min Steve NILL [facility] 04-30-2024 15:05-0500 Respiratory rate 16 /min Steve NILL [facility] 04-30-2024 15:05-0500 Systolic blood pressure 132 mm[Hg] Steve NILL [facility] 03-31-2024 13:37-0400 Body weight 96.62 kg Fito Hill MD Work Phone: [facility] 03-31-2024 13:37-0400 Diastolic blood pressure 90 mm[Hg] Fito Hill MD Work Phone: [facility] 03-31-2024 13:37-0400 Heart rate 80 /min Fito Hill MD Work Phone: [facility] 03-31-2024 13:37-0400 Systolic blood pressure 145 mm[Hg] Fito Hill MD Work Phone: [facility] 10-23-2023 15:18-0400 Blood Pressure Location RAMONA CHAVARRIA [facility] 10-23-2023 15:18-0400 Diastolic blood pressure 97 mm[Hg] RAMONA CHAVARRIA [facility] 10-23-2023 15:18-0400 Heart rate 61 /min RAMONA CHAVARRIA [facility] 10-23-2023 15:18-0400 Respiratory rate 20 /min RAMONA CHAVARRIA [facility] 10-23-2023 15:18-0400 Systolic blood pressure 162 mm[Hg] RAMONA CHAVARRIA [facility] Encounters Encounter Date Encounter Type Care Provider Facility Start: 12-06-2024 End: 12-06-2024 ambulatory CIERRA BRISCOE Not Available Start: 12-05-2024 End: 12-05-2024 Clinical Support Cierra Briscoe PT Work Phone: [facility] Comment on above: Primary osteoarthrit is of right knee (Primary Dx); Acute postoperative pain of right knee; Status post right knee replacement Start: 12-04-2024 End: 12-04-2024 ambulatory CIERRA BRISCOE Not Available Start: 12-03-2024 End: 12-03-2024 Clinical Support Cierra Briscoe PT Work Phone: [facility] Comment on above: Primary osteoarthrit is of right knee (Primary Dx); Acute postoperative pain of right knee; Status post right knee replacement Start: 12-01-2024 End: 12-01-2024 Clinical Support Cierra Briscoe PT Work Phone: [facility] Comment on above: Primary osteoarthrit is of right knee (Primary Dx); Acute postoperative pain of right knee; Status post right knee replacement Start: 11-28-2024 End: 11-28-2024 Clinical Support Cierra Briscoe PT Work Phone: [facility] Comment on above: Primary osteoarthrit is of right knee (Primary Dx); Acute postoperative pain of right knee; Status post right knee replacement Start: 11-27-2024 End: 11-27-2024 ambulatory CIERRA BRISCOE Not Available Start: 11-26-2024 End: 11-26-2024 Clinical Support Cierra Briscoe PT Work Phone: [facility] Comment on above: Primary osteoarthrit is of right knee (Primary Dx); Acute postoperative pain of right knee; Status post right knee replacement Start: 11-25-2024 End: 11-25-2024 ambulatory CIERRA BRISCOE Not Available Start: 11-24-2024 End: 11-24-2024 Clinical Support Cierra Briscoe PT Work Phone: [facility] Comment on above: Primary osteoarthrit is of right knee (Primary Dx); Acute postoperative pain of right knee; Status post right knee replacement Start: 11-22-2024 End: 11-22-2024 Clinical Support Cierra Briscoe PT Work Phone: [facility] Comment on above: Primary osteoarthrit is of right knee (Primary Dx); Acute postoperative pain of right knee; Status post right knee replacement Start: 11-20-2024 End: 11-20-2024 Clinical Support Cierra Briscoe PT Work Phone: [facility] Comment on above: Primary osteoarthrit is of right knee (Primary Dx); Acute postoperative pain of right knee; Status post right knee replacement Start: 11-18-2024 End: 11-18-2024 Clinical Support Cierra Briscoe PT Work Phone: [facility] Comment on above: Primary osteoarthrit is of right knee (Primary Dx); Acute postoperative pain of right knee; Status post right knee replacement Start: 11-17-2024 End: 11-19-2024 Clinisync Result Encounter Steve Duarte DO Work Phone: [facility] Unsolicited Start: 11-17-2024 End: 11-19-2024 Clinisync Result Encounter Steve Duarte DO Work Phone: [facility] Unsolic[facility] Start: 11-17-2024 End: 11-17-2024 Admission to same day surgery center Steve Duarte [facility] Start: 11-17-2024 End: 11-17-2024 ambulatory Steve Lucy Duarte Facility:[facility] Start: 11-12-2024 End: 11-12-2024 Bamboo flowsheet Madison Pearson PT Work Phone: [facility] Start: 11-12-2024 End: 11-12-2024 Bamboo flowsheet Madison Pearson PT Work Phone: [facility] Start: 11-12-2024 End: 11-12-2024 ambulatory Madison Pearson PT Work Phone: [facility] Comment on above: Primary osteoarthrit is of right knee (Primary Dx) Start: 10-31-2024 End: 10-31-2024 ambulatory Steve Lucy Duarte Facility:[facility] Start: 10-31-2024 End: 10-31-2024 Patient encounter procedure Steve Duarte [facility] Start: 10-31-2024 End: 10-31-2024 Clinisync Result Encounter Steve Duarte DO Work Phone: [facility] Unsolicited Start: 10-31-2024 End: 10-31-2024 Clinisync Result Encounter Steve Duarte DO Work Phone: [facility]solic[facility] Start: 10-30-2024 End: 10-30-2024 Bamboo flowsheet Steve Lucy Duarte DO Work Phone: [facility] Start: 10-30-2024 End: 10-30-2024 Bamboo flowsheet Steve Duarte DO Work Phone: [facility] Start: 10-30-2024 End: 10-30-2024 ambulatory STEVE DUARTE Not Available Start: 10-30-2024 End: 10-30-2024 Patient encounter procedure Steve Duarte DO Work Phone: [facility] Comment on above: Pre-op testing (Prim carlton Dx); Bilateral primary osteoarthritis of knee Start: 10-30-2024 End: 10-30-2024 Patient encounter status Steve Duarte DO Work Phone: [facility] Start: 10-30-2024 End: 10-30-2024 ambulatory STEVE DUARTE Not Available Start: 06-03-2024 End: 06-03-2024 Bamboo flowsheet Steve Duarte DO Work Phone: [facility] Start: 06-03-2024 End: 06-03-2024 Bamboo flowsheet Steve Duarte DO Work Phone: [facility] Start: 06-03-2024 End: 06-03-2024 ambulatory STEVE DUARTE Not Available Start: 06-03-2024 End: 06-03-2024 Patient encounter procedure Steve Duarte DO Work Phone: [facility] Comment on above: Bilateral primary os teoarthritis of knee (Primary Dx) Start: 05-27-2024 End: 05-27-2024 Bamboo flowsheet Steve Duarte DO Work Phone: [facility] Start: 05-27-2024 End: 05-27-2024 Bamboo flowsheet Steve Duarte DO Work Phone: [facility] Start: 05-27-2024 End: 05-27-2024 ambulatory STEVE DUARTE Not Available Start: 05-27-2024 End: 05-27-2024 Patient encounter procedure Steve Duarte DO Work Phone: [facility] Comment on above: Bilateral primary os teoarthritis of knee (Primary Dx) Start: 05-20-2024 End: 05-20-2024 Patient encounter procedure Steve Duarte DO Work Phone: [facility] Comment on above: Bilateral primary os teoarthritis of knee (Primary Dx) Start: 05-20-2024 End: 05-20-2024 ambulatory STEVE DUARTE Not Available Start: 05-12-2024 End: 05-12-2024 ambulatory Steve VAZQUEZ Facility:[facility] Start: 05-12-2024 End: 05-12-2024 Patient encounter procedure Steve Clinton [facility] Start: 04-30-2024 End: 04-30-2024 ambulatory Steve R PENNYL Facility:[facility] Start: 04-30-2024 End: 04-30-2024 Patient encounter procedure Steve Clinton GEORGE [facility] Start: 04-30-2024 End: 04-30-2024 Telephone encounter Steve Duarte DO Work Phone: [facility] Start: 04-07-2024 ambulatory MAGGIE Archie Guzman [facility] Start: 04-04-2024 ambulatory Steve Duarte Facility :[facility] Start: 03-31-2024 End: 03-31-2024 ambulatory COSTA Lorena FERMÍN [facility] Start: 03-31-2024 End: 03-31-2024 Office outpatient new 45 minutes Fito Hill MD Work Phone: [facility] Comment on above: Pelvic pain (Primary Dx); Pelvic congestion syndrome Start: 03-17-2024 End: 03-17-2024 ambulatory MAGGIE [facility]chie Guz[facility] Start: 03-17-2024 End: 03-17-2024 Subsequent hospital visit by physician [facility] Comment on above: Arrived Start: 03-03-2024 End: 03-03-2024 ambulatory [facility] Start: 03-03-2024 End: 03-03-2024 Subsequent hospital visit by physician [facility] Comment on above: Arrived Start: 02-25-2024 End: 02-25-2024 Telephone encounter Kathe Nataliya KENDALL [facility] [place] Start: 02-25-2024 ambulatory [place] Wyatt [facility] Start: 02-11-2024 End: 02-11-2024 ambulatory MAGGIE [facility] Start: 02-11-2024 End: 02-11-2024 Subsequent hospital visit by physician Sonia Morelos PTA [facility] Comment on above: Arrived Start: 01-28-2024 End: 01-28-2024 ambulatory THERESA [facility] Start: 01-14-2024 End: 01-14-2024 ambulatory MAGGIE [facility] Start: 01-14-2024 End: 01-14-2024 Subsequent hospital visit by physician Sonia Morelos PTA [facility] Comment on above: Arrived Start: 01-07-2024 End: 01-07-2024 ambulatory MAGGIE [facility] Start: 12-26-2023 ambulatory [facility] Start: 12-05-2023 End: 12-05-2023 Subsequent hospital visit by physician Emily Yoo [employer] Work Phone: [facility] Start: 12-05-2023 End: 12-07-2023 ambulatory EMILYCOURTNEY YOO [facility] Start: 11-29-2023 End: 11-29-2023 ambulatory EMILYCOURTNEY YOO [facility] Start: 11-29-2023 End: 11-29-2023 ambulatory MAGGIE [facility] Start: 10-23-2023 End: 10-23-2023 Lab Drop off RAMONA CHAVARRIA [facility] Start: 10-23-2023 End: 10-23-2023 Patient encounter procedure RAMONA CHAVARRIA [facility] Start: 10-17-2022 End: 10-18-[address] MAGGIE BALDWIN . Facility:[facility] Start: 10-12-2022 Encounter for genera l adult medical examination without abnormal findings DR MAGGIE BALDWIN . [facility] Start: 10-06-2022 End: 10-06-[address] MAGGIE BALDWIN . Facility: Start: 10-06-2022 End: 10-06-2022 Encounter for general adult medical examination without abnormal findings DR MAGGIE BALDWIN . Facility:[facility] Start: 08-29-2022 End: 08-30-[address] MAGGIE BALDWIN . Facility:[facility] Start: 05-25-2022 End: 05-25-[address] MAGGIE BALDWIN . Facility:[facility] Start: 05-17-2022 End: 05-18-[address] MAGGIE BALDWIN . Facility:[facility] Start: 11-30-2021 End: 12-01-[address] MAGGIE BALDWIN . Facility: Procedures Date Procedure Procedure Detail Performing Clinician Start: 11-17-2024 XR KNEE 1 OR 2 VIEWS RIGHT Steve Duarte DO Work Phone: Start: 11-17-2024 Total knee replacement Steve Duarte Start: 10-31-2024 UA WITH CULT RFLX Naldo Duarte DO Work Phone: Start: 10-30-2024 Radiologic examinati on knee 3 views Steve Duarte DO Work Phone: Start: 06-03-2024 Arthrocentesis aspir &/inj major jt/bursa w/o us Steve Duarte DO Work Phone: Start: 05-27-2024 Arthrocentesis aspir &/inj major jt/bursa w/o us Steve Duarte DO Work Phone: Start: 05-20-2024 Arthrocentesis aspir &/inj major jt/bursa w/o us Steve Duarte DO Work Phone: Start: 05-20-2024 End: 05-20-2024 Radiologic examination knee 3 views Steve Duarte DO Work Phone: Start: 05-12-2024 Colonoscopy Steve Gonzalez weryousuf DO Work Phone: Start: 05-12-2024 Colonoscopy Steve NI LL Start: 12-05-2023 Creatinine blood Emily Yoo [employer]AC[employer] - CNM Work Phone: Start: 11-29-2023 Microscopic observat ion [Identifier] in Cervix by Cyto stain Sonia Jethro [employer] Start: 12-14-2015 Mammography Steve newman DO Work Phone: Start: 09-23-2013 Cystourethroscopy wi th dilation of urethral stricture RAMONA CHAVARRIA Start: 04-29-2003 Cystourethroscopy wi th dilation of urethral stricture RAMONA CHAVARRIA Ligation of fallopian tube J KEYSHA CHAVARRIA Repair of musculoten dinous cuff of shoulder Steve FRANCISKimberly Superficial parotidectomy Kate VAZQUEZ Plan of Treatment Date Care Activity Detail Author Start: 05-12-2034 Screening for malign ant neoplasm of colon [facility] Start: 11-28-2028 Screening for malign ant neoplasm of cervix [facility] Start: 11-28-2026 Screening for malign ant neoplasm of cervix Pap Smear [facility] Start: 03-31-2025 Tobacco Screening Tobacco Screening [facility] Start: 12-16-2024 End: 12-16-2024 Patient encounter procedure 12/16/2024 1:30 PM EDT Office Visit [facility] [address] [facility] [place] [address] Steve Duarte DO [address] [place] [address] [facility] Start: 12-10-2024 End: 12-10-2024 ambulatory 12/10/2024 9:00 AM EDT Treatment [facility] [address] [place] [address] Natividad Gudino, PT [facility] Start: 11-28-2024 Depression Screen Depression Screen [facility] Start: 11-12-2024 End: 11-12-2024 ambulatory 11/12/2024 10:00 AM EDT Evaluation [facility] [address] [place] [address] Madison Pearson, PT [address] [place] [address] [facility] Start: 10-30-2024 End: 10-30-2025 Urinalysis complete panel - Urine Urinalysis with reflex microscopic Lab Routine Pre-op testing Expected: 10/30/2024, Expires: 10/30/2025 [facility] Work Phone: Comment on above: Expected: 10/30/2024 , Expires: 10/30/2025 Start: 10-30-2024 End: 10-30-2024 Patient encounter procedure 10/30/2024 10:00 AM EDT Office Visit [facility] [address] [place] [phone] Steve Duarte, DO [address] [place] [address] Arrived [facility] Comment on above: Arrived Start: 06-03-2024 End: 06-03-2024 Patient encounter procedure 06/03/2024 1:45 PM EST Procedure Visit [facility] [address] [place] [phone] Steve Duarte, DO [address] [place] [address] [facility] Start: 05-27-2024 End: 05-27-2024 Patient encounter procedure 05/27/2024 1:45 PM EST Procedure Visit [facility] [address] [place] [address] Steve Duarte, DO [address] [place] [address] [facility] Start: 05-20-2024 End: 05-20-2024 Patient encounter procedure 05/20/2024 2:15 PM EST Office Visit [facility] [address] [place] [id number] Steve Duarte, DO [address] [place] [address] [facility] Start: 05-12-2024 End: 05-12-2024 Patient encounter procedure 05/12/2024 2:15 PM EST Office Visit [facility] [place] [address] Fito Hill MD [address] [place] [address] [facility] Start: 05-04-2024 End: 05-04-2024 Patient encounter procedure 05/04/2024 7:30 AM EST Appointment [facility] [address] [place] [address] Fito Hill MD [address] [place] [address] [facility] Start: 05-01-2024 End: 09-29-2024 MRA Pelvis vessels MRV pelvis pelvic congestion with and without contrast Imaging Routine Pelvic congestion syndrome Pelvic pain Expected: 05/01/2024 (Approximate), Expires: 09/29/2024 Erica Work Phone: Comment on above: Expected: 05/01/2024 (Approximate), Expires: 09/29/2024 Start: 04-07-2024 End: 04-07-2024 Patient encounter procedure 04/07/2024 2:15 PM EDT Appointment [facility] Physical Therapy [address] [place] [address] Sonia Morelos PTA [facility] Physical Therapy Start: 03-17-2024 End: 03-17-2024 Patient encounter procedure 03/17/2024 2:30 PM EDT Appointment [facility] Physical Therapy [address] [place] [address] Sonia Morelos PTA [facility] Physical Therapy Start: 02-25-2024 End: 02-25-2024 Patient encounter procedure 02/25/2024 3:30 PM EDT Appointment [facility] Physical Therapy [address] [place] [address] Sonia Morelos PTA [facility] Physical Therapy Start: 2024 COVID-19 Vaccine ( season) COVID-19 Vaccine ( season) [facility] [employer] Start: 2024 Influenza vaccination Influenza Vacc ine [facility] [employer] [facility] Start: 01-28-2024 End: 01-28-2024 Patient encounter procedure 01/28/2024 4:15 PM EDT Appointment [facility] Physical Therapy [address] [place] [address] Sonia Morelos PTA [facility] Physical Therapy Start: 01-17-2024 Influenza vaccination B [facility] [employer] Start: 02-16-2023 COVID-19 Vaccine ( season) COVID-19 Vaccine ( season) [facility] [employer] Start: 2020 Respiratory Syncytia l Virus (RSV) or age 60 yrs+ (1 - 1-dose 60+ series) Respiratory Syncytial Virus (RSV) or age 60 yrs+ (1 - 1-dose 60+ series) [email or web address] Start: 12-13-2017 Screening for malign ant neoplasm of breast Breast cancer screen [email or web address] Start: 12-13-2016 Screening for malign ant neoplasm of breast Mammogram [facility] Start: 02-16-2010 Administration of varicella zoster vaccine Zoster (Shingles) Vaccine (1 of 2) [facility] [employer] [facility] Start: 02-16-2010 Shingles vaccine (1 of 2) Shingles vaccine (1 of 2) [facility] Start: 02-16-2005 Screening for malign ant neoplasm of colon [facility] Start: 02-16-1995 Diabetes screen Diabetes screen [facility] Start: 02-16-1981 Screening for malign ant neoplasm of cervix Pap smear [facility] Start: 02-16-1979 DTaP,Tdap and Td Vaccines (1 - Tdap) DTaP,Tdap and Td Vaccines (1 - Tdap) [facility] Start: 02-16-1979 DTaP/Tdap/Td vaccine (1 - Tdap) DTaP/Tdap/Td vaccine (1 - Tdap) [facility] Start: 02-16-1978 Adult BMI Screening Adult BMI Screen ing [facility] Start: 02-16-1978 Hepatitis C screening Hepatitis C sc reen [facility] Start: 02-16-1975 HIV screening HIV screen [facility] Start: 1972 Depression Screening Depression Scre ening [facility] Start: 1972 Tobacco Screening Tobacco Screening [facility] Start: 02-16-1970 Lipid panel Lipids [facility] Start: 1960 Screening for malign ant neoplasm of colon [facility] End: 09-29-2024 MR Abdomen and Pelvis W contrast PO and WO and W contrast IV MRV abdomen pelvic congestion with and without contrast Imaging Routine Pelvic congestion syndrome Pelvic pain 1 Occurrences starting 03/31/2024 until 09/29/2024 [facility] Comment on above: 1 Occurrences starti ng 03/31/2024 until 09/29/2024 XR Knee - right 3 Views XR knee 3 views right Imaging Routine Bilateral primary osteoarthritis of knee 10/30/2024 11:39 AM EDT [facility] Immunizations Immunization Date Immunization Notes Care Provider Fa cili 03-29-2024 influenza virus vaccine, unspecified formulation Steve VAZQUEZ [facility] 05-17-2022 SARS-CoV-2 (COVID-19 ) mRNA-1273 vaccine Steve VAZQUEZ [facility] 03-30-2022 influenza virus vaccine, unspecified formulation Kathe An MA [facility] 04-22-2021 SARS-CoV-2 (COVID-19 ) mRNA-1273 vaccine Steve VAZQUEZ [facility] 08-23-2020 SARS-CoV-2 (COVID-19 ) Ad26 vaccine, recombinant Steve VAZQUEZ [facility] Payers Date Payer Category Payer Private Health Insurance [id number] 1960 Unknown [id number] 2.16.84 0.1.954170.3.579.2.593 1960 Unknown [id number] 2.16.84 0.1.534999.3.579.2.593 1960 Unknown [id number] 2.16.84 0.1.975508.3.579.2.593 1960 Unknown [id number] 2.16.84 0.1.064090.3.579.2.593 1960 Unknown [id number] 2.16.84 0.1.523521.3.579.2.593 1960 Unknown [id number] 2.16. 840.1.237098.3.579.2.175 1960 Unknown [id number] 2.16.8 40.1.319337.3.579.2.173 1960 Unknown [id number] 2.16.8 40.1.183373.3.579.2.173 1960 Unknown [id number] 2.16.8 40.1.759193.3.579.2.173 1960 Unknown [id number] 2.16.8 40.1.612822.3.579.2.173 1960 Unknown [id number] 2.16.8 40.1.146974.3.579.2.173 1960 Unknown [id number] 2.16.8 40.1.530477.3.579.2.173 1960 Unknown [id number] 2.16.8 40.1.873624.3.579.2.173 1960 Unknown [id number] 2.16.8 40.1.714205.3.579.2.173 1960 Unknown [id number] 2.16.8 40.1.084184.3.579.2.173 1960 Unknown [id number] 2.16.8 40.1.580331.3.579.2.173 1960 Unknown [id number] 2.16.8 40.1.474005.3.579.2.173 1960 Unknown [id number] 2.16.8 40.1.460355.3.579.2.1286 1960 Unknown [id number] 2.16.8 40.1.655208.3.579.2.727 1960 Unknown [id number] 2.16.8 40.1.093529.3.579.2.727 1960 Unknown [id number] 2.16.8 40.1.013474.3.579.2.727 1960 Unknown [id number] 2.16.8 40.1.882443.3.579.2.727 1960 Unknown [id number] 2.16.8 40.1.291959.3.579.2.727 1960 Unknown [id number] 2.16.8 40.1.174824.3.579.2.1259 1960 Unknown [id number] 2.16.8 40.1.151353.3.579.2.1259 1960 Unknown [id number] 2.16.8 40.1.029114.3.579.2.1259 1960 Unknown [id number] 2.16.8 40.1.806326.3.579.2.1259 1960 Unknown [id number] 2.16.8 40.1.419074.3.579.2.1259 1960 Unknown [id number] 2.16.8 40.1.204817.3.579.2.1258 1960 Unknown [id number] 2.16.8 40.1.870940.3.579.2.9 1960 Unknown [id number] 2.16.8 40.1.327289.3.579.2.1258 1960 Unknown [id number] 2.16.8 40.1.388367.3.579.2.1258 1960 Unknown [id number] 2.16.84 0.1.117194.3.579.2.1258 1960 Unknown [id number] 2.16.84 0.1.035628.3.579.2.1258 1960 Unknown [id number] 2.16.84 0.1.848473.3.579.2.1258 1960 Unknown [id number] 2.16.84 0.1.055555.3.579.2.1258 1960 Unknown [id number] 2.16.84 0.1.063616.3.579.2.1258 1960 Unknown [id number] 2.16.84 0.1.523427.3.579.2.9 1960 Unknown [id number] 2.16.84 0.1.132981.3.579.2.1258 1960 Unknown [id number] 2.16.84 0.1.249983.3.579.2.1258 1959 Private Health Insurance [id number] Self-pay [id number] Unknown [id number] 2.16.84 0.1.880460.3.579.2.593 Social History Date Type Detail Facility Start: 06-26-2023 End: 10-23-2023 Tobacco smoking status Ex-smoker (finding) [facility] Start: 09-06-2023 End: 10-30-2024 Sex Assigned At Female [facility] Tobacco smoking status Never [facility] End: 06-18-1999 History of tobacco use Current smoker [facility] End: 06-18-1999 History of tobacco use Cigarette Smoker [facility] Start: 06-26-2023 End: 03-31-2024 Tobacco use and exposure Smokeless tobacco non-user [employer] Start: 09-06-2023 End: 10-30-2024 History of Social function [employer] Start: 1960 Sex assigned at Not on file [facility] [employer] Start: 11-29-20[address] [facility] [employer] Start: 11-29-2023 Alcohol intake Current drinke r of alcohol (finding) [employer] (I/We) worried wheth er (my/our) food would run out before (I/we) got money to buy more. Never true [employer] At any time in the p ast 12 months, were you homeless or living in snf [including now]? No [employer] Start: 11-29-2023 Alcohol Comment social Meetup [facility] consumption unknown [facility] Sexual Orientation [facility] Start: 09-29-2009 Sex Female (finding) [facility] Medical Equipment Procedure Code Equipment Code Equipment Origin al Text Equipment Identifier Dates KNEE TOTAL ARTHROPLASTY Steve Duarte DO 11/17/24 Non Biological Knee R [id number] FDA Start: 11-17-2024 Functional Status Date Assessment Result Facility 10-31-2024 Functional Status No [facility] 05-12-2024 Functional Status N/A [facility] 04-30-2024 Functional Status N/A [facility] 10-23-2023 Functional Status N/A [facility] Clinical Notes 12-01-2021 to 12-05-2024 Cierra Briscoe, PT - 12/05/2024 8:00 AM EDLucyCierra Briscoe, PT - 12/03/2024 8:00 AM ALIVIACierra Briscoe, PT - 12/01/2024 8:00 AM EDTCierra Briscoe, PT - 11/28/2024 8:00 AM EDT Note Date & Type Note Facility 12-05-2024 History of Present illness Narrative Physical Therapy Physical Therapy Daily Visit Patient [...] out: 8:40 am Total time: 40 minutes [id number] [employer] x 30 minutes [id number] gait training x 10 minutes Precautions: WBAT Right LE; Right TKA protocol Pain Management: The patient is complaining of pain located in the Righ knee and thigh region. Pain rating 4/10. The pain is improved by ice and medication 1 every 8 hours of pain meds and Tylenol as needed. The pain is aggravated by activity. The [...] knee flexion/extension: 3+/5. Palpation: Minimal warmth upon palpation, consistent with [...] a smooth motion = 1. Balance Score: 16. Indication of gait: No hesitancy = 1. [...] good two point gait pattern; ambulated outside on uneven surfaces at SBA no LOB, some hesitation. Therapeutic Activity: All transfers performed at [facility] Assessment & Plan Pt making steady slow [...] AD with supervision, step to gait pattern. Senior Care Goals Goal 1 : Patient will demonstrate [...] to transition to OP next week at [facility]. documented in this encounter [facility] 12-03-2024 History of Present illness Narrative Physical Therapy Physical Therapy Daily Visit Patient [...] out: 8:40 am Total time: 40 minutes [id number] TherEx x 30 minutes [id number] gait training x 10 minutes Precautions: WBAT Right LE; Right TKA protocol Pain Management: The patient is complaining of pain located in the Righ knee and thigh region. Pain rating 4/10. The pain is improved by ice and medication 1 every 8 hours of pain meds and Tylenol as needed. The pain is aggravated by activity. The [...] a smooth motion = 1. Balance Score: 16. Indication of gait: No hesitancy = 1. [...] good two point gait pattern; ambulated outside on uneven surfaces at A no LOB, some hesitation. Therapeutic Activity: All transfers performed at [facility] Assessment & Plan Pt making steady [...] AD with supervision, step to gait pattern. Senior Care Goals Goal 1 : Patient will demonstrate [...] details: Educated to continue icing and elevating. [place] to be removed next session. Pt to transition to OP next week at [facility]. documented in this encounter [facility] 12-01-2024 History of Present illness Narrative Physical Therapy Physical Therapy Daily Visit Patient [...] out: 8:38 am Total time: 38 minutes [id number] TherEx x 30 minutes [id number] gait training x 8 minutes Precautions: WBAT Right LE; Right TKA protocol Pain Management: The patient is complaining of pain located in the Righ knee and thigh region. Pain rating 4/10. The pain is improved by ice and medication 1 every 8 hours of pain meds and Tylenol as needed. The pain is aggravated by activity. The [...] knee flexion/extension: 3-/5. Palpation: Minimal warmth upon palpation, consistent with [...] adjusted. Therapeutic Activity: All transfers performed at [facility] Assessment & Plan Pt making steady slow [...] AD with supervision, step to gait pattern. Results Engineer Goals Goal 1 : Patient will demonstrate [...] icing and elevating. documented in this encounter [facility] 11-28-2024 History of Present illness Narrative Physical Therapy Physical Therapy Daily Visit Patient [...] out: 8:38 am Total time: 38 minutes [id number] TherEx x 30 minutes [id number] gait training x 8 minutes Precautions: WBAT Right LE; Right TKA protocol Pain Management: The patient is complaining of pain located in the Righ knee and thigh region. Pain rating 5/10. The pain is improved by ice and medication 1 every 6 hours of pain meds and Tylenol as needed. The pain is aggravated by activity. The [...] knee flexion/extension: 3-/5. Palpation: Minimal warmth upon palpation, consistent with post-operative conditions. Surgical incision intact with Mepilex dressing was changed on 11/26/2024. Special tests: Negative Kayden Sign. Functional Mobility: Bed Mobility: mod indep Sit to Stand: mod indep Stair Negotiation: [facility] Ambulation: Patient is ambulating with walker and [...] time: Heels apart = 0. Gait score: 5/12. Total Score = Balance + Gait 05/15. [...] adjusted. Therapeutic Activity: All transfers performed at [facility] Assessment & Plan Pt making steady [...] AD with supervision, step to gait pattern. Results Engineer Goals Goal 1 : Patient will demonstrate [...] icing and elevating. documented in this encounter [facility] 11-26-2024 History of Present illness Narrative Physical Therapy Physical Therapy Daily Visit Patient [...] out: 8:38 am Total time: 38 minutes [id number] TherEx x 30 minutes [id number] gait training x 8 minutes Precautions: WBAT Right LE; Right TKA protocol Pain Management: The patient is complaining of pain located in the Righ knee and thigh region. Pain rating 5/10. The pain is improved by ice and medication 1 every 6 hours of pain meds and Tylenol as needed. The pain is aggravated by activity. The [...] knee flexion/extension: 3-/5. Palpation: Minimal warmth upon palpation, consistent with post-operative conditions. Surgical incision intact with Mepilex dressing was changed this date. Incision intact with lo with no concerns. New Mepilex dressing applied. Special tests: Negative Kayden Sign. Functional Mobility: Bed Mobility: SBA Sit to Stand: SBA Stair Negotiation: [facility] Ambulation: Patient is ambulating with moderate antalgic type pattern with SWW, reciprocal to gait pattern; Fair heel to toe gait pattern; SBA. Pt ambulated approx 150' x 2 with slow chantelle. Limited knee flexion during swing phase and heavy dependency [...] carryover. Therapeutic Activity: All transfers performed at [facility] Assessment & Plan Pt making steady slow [...] AD with supervision, step to gait pattern. Senior Care Goals Goal 1 : Patient will demonstrate [...] icing and elevating. documented in this encounter [facility] 11-24-2024 History of Present illness Narrative Physical Therapy Physical Therapy Daily Visit Patient Name: Michelle Rodriguez Today's Date: 11/24/2024 Subjective Current Problem: s/p right TKA with pain and difficulty walking. Pt is being seen today for follow up visit for s/p right TKA. Date of Surgery: 11/17/2024 with same day discharge. Current deficits: Difficulty with all mobility secondary to recent right TKA and pain. Visit Number 4. Time In: 1:55 pm; Time out: 2:34 pm Total time: 39 minutes [id number] TherEx x 30 minutes 23994 gait training x 9 minutes Precautions: WBAT Right LE; Right TKA protocol Pain Management: The patient is complaining of pain located in the Righ knee and thigh region. Pain rating 5/10. The pain is improved by ice and medication 1-2 every 6 hours of pain meds and Tylenol as needed. The pain is aggravated by activity. The [...] knee flexion/extension: 3-/5. Palpation: Minimal warmth upon palpation, consistent with post-operative conditions. Surgical incision intact with Mepilex dressing with no present drainage. Minimal edema with ecchymosis developing. Special tests: Negative Kayden Sign. Functional Mobility: Bed Mobility: SBA Sit to Stand: SBA Stair Negotiation: [facility] Ambulation: Patient is ambulating with moderate antalgic type pattern with SWW, reciprocal to gait pattern; Fair heel to toe gait pattern; SBA. Pt ambulated approx 150' x 2 with slow chantelle. Limited knee flexion during swing phase and heavy dependency [...] mini squats, ham curls and standing SLR. Added static knee extension on chair x 5 minutes. HEP updated and reviewed. Gait Training: Gait training this date with FWW with instruction for reciprocal gait pattern for right affective LE with increase cues for heel to toe pattern and knee flexion during swing; good carryover. Therapeutic Activity: Worked on proper sit to stand, stand to sit transfers this date from recliner with poor carryover; needed only SBA assist with verbal cues for proper sequencing and hand placement. Assessment & Plan Pt making steady slow [...] AD with supervision, step to gait pattern. Senior Care Goals Goal 1 : Patient will demonstrate [...] icing and elevating. documented in this encounter [facility] 11-22-2024 History of Present illness Narrative Physical Therapy Physical Therapy Daily Visit Patient Name: Michelle Rodriguez Today's Date: 11/22/2024 Subjective Current Problem: s/p right TKA with pain and difficulty walking. Pt is being seen today for follow up visit for s/p right TKA. Date of Surgery: 11/17/2024 with same day discharge. Current deficits: Difficulty with all mobility secondary to recent right TKA and pain. Visit Number 3. Time In: 10:00 am; Time out: 10:40 am Total time: 40 minutes [id number] TherEx x 30 minutes 62197 gait training x 10 minutes Precautions: WBAT Right LE; Right TKA protocol Pain Management: The patient is complaining of pain located in the Righ knee and thigh region. Pain rating 5/10. The pain is improved by ice and medication 1-2 every 6 hours of pain meds and Tylenol as needed. The pain is aggravated by activity. The [...] knee flexion/extension: 3-/5. Palpation: Minimal warmth upon palpation, consistent with post-operative conditions. Surgical incision intact with Mepilex dressing with no present drainage. Minimal edema with ecchymosis developing. Special tests: Negative Kayden Sign. Functional Mobility: Bed Mobility: SBA Sit to Stand: SBA Stair Negotiation: [facility] Ambulation: Patient is ambulating with moderate antalgic type pattern with SWW, reciprocal to gait pattern; Fair heel to toe gait pattern; SBA. Pt ambulated approx 150' x 2 with slow chantelle. Limited knee flexion during swing phase and heavy dependency [...] Completed standing heel raises, marches and hip abduction; added mini squats, ham curls and standing SLR. HEP updated and reviewed. Gait Training: Gait training this date with FWW with instruction for reciprocal gait pattern for right affective LE with increase cues for heel to toe pattern and knee flexion during swing; good carryover. Worked on ascend/descending 3 steps [address] garage with use of str cane; CGA with cues for proper sequencing; present for training. Therapeutic Activity: Worked on proper sit to stand, stand to sit transfers this date from recliner with poor carryover; needed only SBA assist with verbal cues for proper sequencing and hand placement. Assessment & Plan Pt making steady slow [...] AD with supervision, step to gait pattern. Senior Care Goals Goal 1 : Patient will demonstrate [...] icing and elevating. documented in this encounter [facility] 11-20-2024 History of Present illness Narrative Physical Therapy Physical Therapy Daily Visit Patient Name: Michelle Rodriguez Today's Date: 11/20/2024 Subjective Current Problem: s/p right TKA with pain and difficulty walking. Pt is being seen today for follow up visit for s/p right TKA. Date of Surgery: 11/17/2024 with same day discharge. Current deficits: Difficulty with all mobility secondary to recent right TKA and pain. Visit Number 2. Time In: 9:00 am; Time out: 9:40 am Total time: 40 minutes 11464 TherEx x 30 minutes 41223 gait training x 10 minutes Precautions: WBAT Right LE; Right TKA protocol Pain Management: The patient is complaining of pain located in the Righ knee and thigh region. Pain rating 5/10. The pain is improved by ice and medication 1-2 every 6 hours of pain meds and Tylenol as needed. The pain is aggravated by activity. The [...] Information: Passive ROM: Left knee 10 to 80 degrees. Joint play: hypomobile. Manual muscle testing: Left knee flexion/extension: 3-/5. Palpation: Minimal warmth upon palpation, consistent with post-operative conditions. Surgical incision intact with Mepilex dressing with no present drainage. Minimal edema with ecchymosis developing. Special tests: Negative Kayden Sign. Functional Mobility: Bed Mobility: SBA Sit to Stand: SBA Stair Negotiation: NT Ambulation: Patient is ambulating with moderate antalgic type pattern with SWW, step to gait pattern; Fair heel to toe gait pattern; SBA. Pt ambulated approx 150' x 2 with slow chantelle. Limited knee flexion during swing phase and heavy dependency [...] seated heel slides with plastic bag, 10x. Added standing heel raises, marches and hip abduction. HEP updated and reviewed. . Gait Training: Gait training this date with FWW with instruction for step to gait pattern for right affective LE with increase cues for heel to toe pattern and knee flexion during swing. Therapeutic Activity: Worked on proper sit to stand, stand to sit transfers this date from recliner with poor carryover; needed only SBA assist with verbal cues for proper sequencing and hand placement. Worked on getting in/out shower with present for training on transfer safety. Assessment & Plan Assessment Impairments: abnormal gait, abnormal or restricted [...] AD with supervision, step to gait pattern. Results Engineer Goals Goal 1 : Patient will demonstrate [...] icing and elevating. documented in this encounter [facility] 11-19-2024 Note Progress Note-Physic marva Patient: MICHELLE RODRIGUEZ MRN: [id number] Age: 64 years Sex: Female : 1960 Associated Diagnoses: None Author: Montez Julien Jr, DO Preoperative Information Anesthesia Preop Info: Time patient last ate or drank 11/17/2024 00:00:00. Anesthesia history: Patient history: None. Family history+: None. Informed consent: Signed by patient. Re-evaluation prior to induction: Initial evaluation reviewed: No significant change. Review of Systems Eye: Negative except as documented in history of present illness. Ear/Nose/Mouth/Throat: Negative except as documented in history of present illness. Respiratory: Negative except as documented in history of present illness. Cardiovascular: Negative except as documented in history of present illness. Musculoskeletal: Negative except as documented in history of present illness. Neurologic: Negative except as documented in history of present illness. 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 Urinary frequency / SNOMED CT 183997133 / Confirmed Hypertension / SNOMED CT 6536109318 / Confirmed Hyperlipidemia / SNOMED CT 87679227 / Confirmed High cholesterol / SNOMED CT 45648905 / Confirmed History of recurrent UTI (urinary tract infection) / SNOMED CT 6018576461 / Confirmed GERD (gastroesophageal reflux disease) / SNOMED CT 387931658 / Confirmed Former smoker / SNOMED CT 51147085 / Confirmed BMI 36.0-36.9,adult / SNOMED CT 659726439 / Confirmed Resolved: Migraines / SNOMED CT 21756930 Resolved: Adrenal gland hematoma / SNOMED CT 975025813 Canceled: Vaginal odor / SNOMED CT 2881207943 Canceled: Foul smelling urine / SNOMED CT 0778742467 Canceled: Essential hypertension / SNOMED CT 14466303 Canceled: Abdominal pain / SNOMED CT 72996756 Histories Procedure history: Colonoscopy ([id number]) on 05/12/2024 at 64 Years. Cysto/UD ([id number]) on 09/23/2013 at 53 Years. Cysto/UD ([id number]) on 04/29/2003 at 43 Years. Tubal ligation ([id number]). Rotator cuff repair ([id number]). Superficial parotidectomy (743424291). Social History Social & Psychosocial Habits Alcohol 10/31/2024 Risk Assessment: Denies Alcohol Use Substance Abuse 10/31/2024 Risk Assessment: Denies Substance Abuse Tobacco 10/31/2024 Tobacco Use: Former smoker, quit more Smokeless tobacco use: Never Type: Cigarettes Tobacco use per day: 1 Started at age: 20.0 Years Stopped at age: 39 Years . Physical Examination Airway: Mallampati classification: II (soft palate, fauces, uvula visible). Respiratory: adequate air exchange. Cardiovascular: Regular rhythm. Plan [place] [employer] (ASA) physical status classification: Class III. Anesthetic Preoperative Plan: Anesthesia General, and Patient educated on benefits, alternatives and inherent risk of anesthesia including, but not all inclusive, Allergic reactions, dental damage, nerve damage and cardio-pulmonary complications and wishes to proceed with anesthetic plan.. Regional Spinal, and Adductor canal. [facility] Comment on above: Result Comment: Elec tronically Signed By: Montez Julien Jr, DO\.br\Date and Time Signed: 11/19/24 08:03 EDT 11-19-2024 Note Progress Note-Physic marva Patient: MICHELLE RODRIGUEZ Age: 64 years Sex: Female : 1960 Associated Diagnoses: None Author: Montez Julien Jr, DO Postoperative Information Postoperative disposition: Postoperative disposition: To PACU. Optimetrix number: Optimetrix number [id number]. Anesthetic utilized: General. Regional: Spinal. Combined technique: Adductor . Health Status Allergies: Allergic Reactions (Selected) No Known Allergies No Known Medication Allergies Physical Examination VS/Measurements Pain Assessment: Controlled. General: Awake, Alert, Appropriate. Respiratory: Adequate air exchange. Cardiovascular: Stable, Normal peripheral perfusion. Neurological: Normal sensory function, Normal motor function. Assessment Anesthetic outcome No anesthetic complications noted. Adequate pain relief. able to void without difficulty, able to ambulate with assist, tolerating PO intake, no N/V. Review / Management Condition: Stable. Plan Transfer/Discharge: Transfer/Discharge Discharge when meets criteria ( To home ). [facility] Comment on above: Result Comment: Elec tronically Signed By: Montez Julien Jr, DObr\Date and Time Signed: 11/19/24 08:03 EDT 11-18-2024 History of Present illness Narrative Physical Therapy Physical Therapy Evaluation Patient Name: Michelle Rodriguez Today's Date: 11/18/2024 Subjective Current Problem: s/p right TKA with pain and difficulty walking. Pt is being seen today for initial evaluation for s/p right TKA. Date of Surgery: 11/17/2024 with same day discharge. Current deficits: Difficulty with all mobility secondary to recent right TKA and pain. Visit Number 1. Time In: 11:15 am; Time out: 12:00 PM Total time: 45 minutes [id number] PT Eval x 20 minutes [id number] TherEx x 10 minutes [id number] gait training x 15 minutes Precautions: WBAT Right LE; Right TKA protocol Pain Management: The patient is complaining of pain located in the Righ knee and thigh region. Pain rating 5/10. The pain is improved by ice and medication 1 every 6 hours of pain meds and Tylenol as needed. The pain is aggravated by activity. The [...] Information: Passive ROM: Left knee 10 to 80 degrees. Joint play: hypomobile. Manual muscle testing: Left knee flexion/extension: 3-/5. Palpation: Minimal warmth upon palpation, consistent with post-operative conditions. Surgical incision intact with Mepilex dressing with no present drainage. Minimal edema with ecchymosis developing. Special tests: Negative Kayden Sign. Functional Mobility: Bed Mobility: SBA Sit to Stand: SBA Stair Negotiation: NT Ambulation: Patient is ambulating with moderate antalgic type pattern with SWW, step to gait pattern; Fair heel to toe gait pattern; SBA. Pt ambulated approx 150' x 2 with slow chantelle. Limited knee flexion during swing phase and heavy dependency [...] seated heel slides with plastic bag, 10x. HEP issued and instructed. Gait Training: Gait training this date with FWW with instruction for step to gait pattern for right affective LE with increase cues for heel to toe pattern and knee flexion during swing. Therapeutic Activity: Worked on proper sit to stand, stand to sit transfers this date from recliner with poor carryover; needed only SBA assist with verbal cues for proper sequencing and hand placement. Assessment & Plan Assessment Impairments: abnormal gait, abnormal or restricted [...] AD with supervision, step to gait pattern. Results Engineer Goals Goal 1 : Patient will demonstrate [...] Educated to continue icing and elevating. Pt will continues to benefit from PT interventions to improve overall strength, ROM and functional mobility to achieve PLOF. documented in this encounter [facility] 11-17-2024 Hospital Discharge instructions Patient Education 11/17/2024 15:04:28 How to Use an Incentive Spirometer How to Use an Incentive Spirometer An incentive spirometer is a tool that measures how well you are filling your lungs with each breath. Learning to take long, deep breaths using this tool can help you keep your lungs clear and active. This may help to reverse or lessen your chance of developing breathing (pulmonary) problems, especially infection. You may be asked to use a spirometer: After a surgery. If you have a lung problem or a history of smoking. After a long period of time when you have been unable to move or be active. If the spirometer includes an indicator to show the highest number that you have reached, your health care provider or respiratory therapist will help you set a goal. Keep a log of your progress as told by your health care provider. What are the risks? Breathing too quickly may cause dizziness or cause you to pass out. Take your time so you do not get dizzy or light-headed. If you are in pain, you may need to take pain medicine before doing incentive spirometry. It is harder to take a deep breath if you are having pain. How to use your incentive spirometer 1.Sit up on the edge of your bed or on a chair. 2.Hold the incentive spirometer so that it is in an upright position. 3.Before you use the spirometer, breathe out normally. 4.Place the mouthpiece in your mouth. Make sure your lips are closed tightly around it. 5.Breathe in slowly and as deeply as you can through your mouth, causing the piston or the ball to rise toward the top of the chamber. 6.Hold your breath for 3 5 seconds, or for as long as possible. If the spirometer includes a soccer coach indicator, use this to guide you in breathing. Slow down your breathing if the indicator goes above the marked areas. 7.Remove the mouthpiece from your mouth and breathe out normally. The piston or ball will return to the bottom of the chamber. 8.Rest for a few seconds, then repeat the steps 10 or more times. Take your time and take a few normal breaths between deep breaths so that you do not get dizzy or light-headed. Do this every 1 2 hours when you are awake. 9.If the spirometer includes a goal marker to show the highest number you have reached (best effort), use this as a goal to work toward during each repetition. 10.After each set of 10 deep breaths, cough a few times. This will help to make sure that your lungs are clear. If you have an incision on your chest or abdomen from surgery, place a pillow or a rolled-up towel firmly against the incision when you cough. This can help to reduce pain while taking deep breaths and coughing. General tips When you are able to get out of bed: ?Walk around often. ?Continue to take deep breaths and cough in order to clear your lungs. Keep using the incentive spirometer until your health care provider says it is okay to stop using it. If you have been in the hospital, you may be told to keep using the spirometer at home. Contact a health care provider if: You are having difficulty using the spirometer. You have trouble using the spirometer as often as instructed. Your pain medicine is not giving enough relief for you to use the spirometer as told. You have a fever. Get help right away if: You develop shortness of breath. You develop a cough with bloody mucus from the lungs. You have fluid or blood coming from an incision site after you cough. Summary An incentive spirometer is a tool that can help you learn to take long, deep breaths to keep your lungs clear and active. You may be asked to use a spirometer after a surgery, if you have a lung problem or a history of smoking, or if you have been inactive for a long period of time. Use your incentive spirometer as instructed every 1 2 hours while you are awake. If you have an incision on your chest or abdomen, place a pillow or a rolled-up towel firmly against your incision when you cough. This will help to reduce pain. Get help right away if you have shortness of breath, you cough up bloody mucus, or blood comes from your incision when you cough. This information is not intended to replace advice given to you by your health care provider. Make sure you discuss any questions you have with your health care provider. Document Revised: 08/23/2020 Document Reviewed: 08/23/2020 [employer] Patient Education 2023 [employer] 11/17/2024 15:04:22 Knee Cryocuff Patient Instructions - FT (CUSTOM) 11/17/2024 15:04:22 How to Use an Incentive Spirometer How to Use an Incentive Spirometer An incentive spirometer is a tool that measures how well you are filling your lungs with each breath. Learning to take long, deep breaths using this tool can help you keep your lungs clear and active. This may help to reverse or lessen your chance of developing breathing (pulmonary) problems, especially infection. You may be asked to use a spirometer: After a surgery. If you have a lung problem or a history of smoking. After a long period of time when you have been unable to move or be active. If the spirometer includes an indicator to show the highest number that you have reached, your health care provider or respiratory therapist will help you set a goal. Keep a log of your progress as told by your health care provider. What are the risks? Breathing too quickly may cause dizziness or cause you to pass out. Take your time so you do not get dizzy or light-headed. If you are in pain, you may need to take pain medicine before doing incentive spirometry. It is harder to take a deep breath if you are having pain. How to use your incentive spirometer 1.Sit up on the edge of your bed or on a chair. 2.Hold the incentive spirometer so that it is in an upright position. 3.Before you use the spirometer, breathe out normally. 4.Place the mouthpiece in your mouth. Make sure your lips are closed tightly around it. 5.Breathe in slowly and as deeply as you can through your mouth, causing the piston or the ball to rise toward the top of the chamber. 6.Hold your breath for 3 5 seconds, or for as long as possible. If the spirometer includes a soccer coach indicator, use this to guide you in breathing. Slow down your breathing if the indicator goes above the marked areas. 7.Remove the mouthpiece from your mouth and breathe out normally. The piston or ball will return to the bottom of the chamber. 8.Rest for a few seconds, then repeat the steps 10 or more times. Take your time and take a few normal breaths between deep breaths so that you do not get dizzy or light-headed. Do this every 1 2 hours when you are awake. 9.If the spirometer includes a goal marker to show the highest number you have reached (best effort), use this as a goal to work toward during each repetition. 10.After each set of 10 deep breaths, cough a few times. This will help to make sure that your lungs are clear. If you have an incision on your chest or abdomen from surgery, place a pillow or a rolled-up towel firmly against the incision when you cough. This can help to reduce pain while taking deep breaths and coughing. General tips When you are able to get out of bed: ?Walk around often. ?Continue to take deep breaths and cough in order to clear your lungs. Keep using the incentive spirometer until your health care provider says it is okay to stop using it. If you have been in the hospital, you may be told to keep using the spirometer at home. Contact a health care provider if: You are having difficulty using the spirometer. You have trouble using the spirometer as often as instructed. Your pain medicine is not giving enough relief for you to use the spirometer as told. You have a fever. Get help right away if: You develop shortness of breath. You develop a cough with bloody mucus from the lungs. You have fluid or blood coming from an incision site after you cough. Summary An incentive spirometer is a tool that can help you learn to take long, deep breaths to keep your lungs clear and active. You may be asked to use a spirometer after a surgery, if you have a lung problem or a history of smoking, or if you have been inactive for a long period of time. Use your incentive spirometer as instructed every 1 2 hours while you are awake. If you have an incision on your chest or abdomen, place a pillow or a rolled-up towel firmly against your incision when you cough. This will help to reduce pain. Get help right away if you have shortness of breath, you cough up bloody mucus, or blood comes from your incision when you cough. This information is not intended to replace advice given to you by your health care provider. Make sure you discuss any questions you have with your health care provider. Document Revised: 08/23/2020 Document Reviewed: 08/23/2020 [employer] Patient Education 2023 [employer] 11/17/2024 15:04:20 Post Op Patient Instructions - FT (Custom) (CUSTOM) 11/11/2024 17:11:50 Duarte - Total Knee Arthroplasty (CUSTOM) [place], [place] [facility] DISCHARGE INSTRUCTIONS TOTAL KNEE ARTHROPLASTY INCISION CARE: Mepilex dressing can get wet with showers. Please remove 10 days after surgery per instruction sheet. Physical Therapy will monitor. If lo present, please coordinate removal 21 days after surgery with office staff. Please notify the office if any increase in redness, tenderness, drainage, fever, or wound separation is noted beyond this point. No dental work or cleaning for 3 months. MEDICATIONS: You may resume your home medications at the time of discharge. Blood thinners - continue the day after surgery. Aspirin 325 mg EC oral once a day for 4 weeks for blood clot prevention with meals. Please notify your doctor if you have a stomach sensitivity to Aspirin or history of previous stomach ulcers. Pain medication has been prescribed as well. You may continue to use the pain medication every four hours as needed. Any narcotic pain medication can cause side effects including stomach upset, constipation, or light-headedness. You should not drive or operate machinery, or use alcohol while using the narcotic pain medication. You should not use other pain medications with this prescription pain medication unless further directed by your physician. PHYSICAL THERAPY: Continue the range of motion and strengthening exercises initiated in Physical Therapy in the hospital. [facility] Discharge Instructs for TKAPage 2 Physical Therapy Cont. Continue weight bearing, as ordered, to the operated knee for four to six weeks as directed in Physical Therapy, or until your strength is improved and Physical Therapy will then allow you to progress to full weight. This will be with the use of a walker or crutches initially. Assistive devices can be weaned or modified with physical therapy Physical therapy as begun in the hospital will continue at home, possible with the horticultural nursery assistant of Home Health Physical Therapy or in the hospital as an outpatient. When you have become independent with the physical therapy program, this will then be discontinued as a supervised program and you will be instructed to continue the physical therapy exercises at home. Your exercises are cartwright to successful rehabilitation. You should gain full extension first, hopefully before hospital discharge, then continue to do the exercises to maintain this, and gain 90 degrees flexion by one month post-op. Do the exercises daily, twice if preferred. DRIVING: Please do not drive for 4-6 weeks pending therapy progress. Driving too soon, you are considered an impaired bobcat driver/labor, 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 It is therefore advised not to drive until after your first office visit following surgery FOLLOW-UP OFFICE VISIT: ____ Steve Duarte, DO [facility] [address] [place] [address] Reviewed: 1-25 Follow Up Care 10/30/2024 11:38:19 With:MARIA Guadarrama Address: [address] [place], [place] [id number]- Business (1) When:12/16/2024 13:30:00 Comments:Keep scheduled appointment [facility] 11-17-2024 Note Interdisciplinary No te - OT Pt is seen this date for OT evaluation following R TKA with Dr. Duarte. [facility] score: . Pt demonstrates ability to safely complete functional transfers and mobility with FWW for support with SBA/CGA and is CGA for ADL tasks. Pt has been educated regarding joint protection and home safety. Pt has spouse for support at d/c and will have HH services. [facility] 11-17-2024 Note Patient Education - Text How to Use an Incentive Spirometer An incentive spirometer is a tool that measures how well you are filling your lungs with each breath. Learning to take long, deep breaths using this tool can help you keep your lungs clear and active. This may help to reverse or lessen your chance of developing breathing (pulmonary) problems, especially infection. You may be asked to use a spirometer: ??? After a surgery. ??? If you have a lung problem or a history of smoking. ??? After a long period of time when you have been unable to move or be active. If the spirometer includes an indicator to show the highest number that you have reached, your health care provider or respiratory therapist will help you set a goal. Keep a log of your progress as told by your health care provider. What are the risks? Breathing too quickly may cause dizziness or cause you to pass out. Take your time so you do not get dizzy or light-headed. ??? If you are in pain, you may need to take pain medicine before doing incentive spirometry. It is harder to take a deep breath if you are having pain. How to use your incentive spirometer 1. Sit up on the edge of your bed or on a chair. 2. Hold the incentive spirometer so that it is in an upright position. 3. Before you use the spirometer, breathe out normally. 4. Place the mouthpiece in your mouth. Make sure your lips are closed tightly around it. 5. Breathe in slowly and as deeply as you can through your mouth, causing the piston or the ball to rise toward the top of the chamber. 6. Hold your breath for 3?5 seconds, or for as long as possible. ??? If the spirometer includes a soccer coach indicator, use this to guide you in breathing. Slow down your breathing if the indicator goes above the marked areas. 7. Remove the mouthpiece from your mouth and breathe out normally. The piston or ball will return to the bottom of the chamber. 8. Rest for a few seconds, then repeat the steps 10 or more times. ??? Take your time and take a few normal breaths between deep breaths so that you do not get dizzy or light-headed. ??? Do this every 1?2 hours when you are awake. 9. If the spirometer includes a goal marker to show the highest number you have reached (best effort), use this as a goal to work toward during each repetition. 10. After each set of 10 deep breaths, cough a few times. This will help to make sure that your lungs are clear. ??? If you have an incision on your chest or abdomen from surgery, place a pillow or a rolled-up towel firmly against the incision when you cough. This can help to reduce pain while taking deep breaths and coughing. General tips ??? When you are able to get out of bed: ? Walk around often. ? Continue to take deep breaths and cough in order to clear your lungs. ??? Keep using the incentive spirometer until your health care provider says it is okay to stop using it. If you have been in the hospital, you may be told to keep using the spirometer at home. Contact a health care provider if: ??? You are having difficulty using the spirometer. ??? You have trouble using the spirometer as often as instructed. ??? Your pain medicine is not giving enough relief for you to use the spirometer as told. ??? You have a fever. Get help right away if: ??? You develop shortness of breath. ??? You develop a cough with bloody mucus from the lungs. ??? You have fluid or blood coming from an incision site after you cough. Summary ??? An incentive spirometer is a tool that can help you learn to take long, deep breaths to keep your lungs clear and active. ??? You may be asked to use a spirometer after a surgery, if you have a lung problem or a history of smoking, or if you have been inactive for a long period of time. ??? Use your incentive spirometer as instructed every 1?2 hours while you are awake. ??? If you have an incision on your chest or abdomen, place a pillow or a rolled-up towel firmly against your incision when you cough. This will help to reduce pain. ??? Get help right away if you have shortness of breath, you cough up bloody mucus, or blood comes from your incision when you cough. This information is not intended to replace advice given to you by your health care provider. Make sure you discuss any questions you have with your health care provider. Document Revised: 08/23/2020 Document Reviewed: 08/23/2020 [employer] Patient Education ? 2023 [place] [place]. Pulmonary Medicine How to Use an Incentive Spirometer An incentive spirometer is a tool that measures how well you are filling your lungs with each breath. Learning to take long, deep breaths using this tool can help you keep your lungs clear and active. This may help to reverse or lessen your c (more content not included)... [facility] 11-17-2024 Evaluation + Plan note Extrac mer from: Title:Op Note skeleton Author:Steve Duarte DO Date:11/17/24 Impression and Plan Diagnosis Pre-op dx-rt knee oa/pain Post-op dx-same Procedure-rt tka Anesthesia-spinal c block EBL-0 TT-see nn To Recovery Room in stable and satisfactory condition.. [facility] 05-27-2025 NotePatient Education - Text [place], [place] [facility] DISCHARGE INSTRUCTIONS TOTAL KNEE ARTHROPLASTY INCISION CARE: Mepilex dressing can get wet with showers. Please remove 10 days after surgery per instruction sheet. Physical Therapy will monitor. If lo present, please coordinate removal 21 days after surgery with office staff. Please notify the office if any increase in redness, tenderness, drainage, fever, or wound separation is noted beyond this point. No dental work or cleaning for 3 months. MEDICATIONS: You may resume your home medications at the time of discharge. Blood thinners - continue the day after surgery. Aspirin 325 mg EC oral once a day for 4 weeks for blood clot prevention with meals. Please notify your doctor if you have a stomach sensitivity to Aspirin or history of previous stomach ulcers. Pain medication has been prescribed as well. You may continue to use the pain medication every fourhours as needed. Any narcotic pain medication can cause side effects including stomach upset, constipation, or light-headedness. You should not drive or operate machinery, or use alcohol while using the narcotic pain medication. You should not use other pain medications with this prescription pain medication unless further directed by your physician. PHYSICAL THERAPY: Continue the range of motion and strengthening exercises initiated in Physical Therapy in the hospital. [facility] Discharge Instructs for TKA Page 2 Physical Therapy Cont. Continue weight bearing, as ordered, to the operated knee for four to six weeks as directed in Physical Therapy, or until your strength is improved and Physical Therapy will then allow you to progress to full weight. This will be with the use of a walker or crutches initially. Assistive devices canbe weaned or modified with physical therapy Physical therapy as begun in the hospital will continue at home, possible with the horticultural nursery assistant of Home Health Physical Therapy or in the hospital as an outpatient. When you have become independent withthe physical therapy program, this will then be discontinued as a supervised program and you will be instructed to continue the physical therapy exercises at home. Your exercises are cartwright to successful rehabilitation. You should gain full extension first, hopefully before hospital discharge, then continue to do the exercises to maintain this, and gain 90 degreesflexion by one month post-op. Do the exercises daily, twice if preferred. DRIVING: Please do not drive for 4-6 weeks pending therapy progress. Driving too soon, you are considered animpaired bobcat driver/labor, 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 It is therefore advised not to drive until after yourfirst office visit following surgery FOLLOW-UP OFFICE VISIT: Steve Duarte DO [facility] [address] [place] [id number] [phone] Reviewed: 07-12[facility]05-27-2025 NoteProgress Note-Physician Patient: MICHELLE RODRIGUEZ MRN: [id number] Age: 64 years Sex: Female : 1960 Associated Diagnoses: None Author: Steve Duarte DO Basic Information Pre-Op Diagnosis: Additional Orders: Comment: Ordered: Advance diet as tolerated.,11/17/24 12:30:00 EDT, Advance diet as tolerated. Ordered: Arixtra 2.5 mg/0.5 mL Injection,2.5 mg = 0.5 mL, Injection, SubCutaneous, qAM for 10 day(s), Stop date 11/28/24 6:29:00 EDT, Routine, Start date 11/18/24 6:30:00 EDT, Start AM postop day 1, 11/18/24 6:30:00 EDT Ordered: Below the Knee Intermittent Pneumatic Compression Device,11/17/24 12:30:00 EDT, Constant Order, to be worn at all times except while walking, included while sitting in chair Ordered: Colace 100 mg Cap,100 mg = 1 cap(s), Cap, Oral, BID, Routine, Start date 11/17/24 21:00:00EDT, 11/17/24 12:30:00 EDT Ordered: Communication Order Physician to Nursing,11/17/24 12:30:00 EDT, Constant order, Foot of bed flat at all times, no pillows or blankets beneath operative knee(s) Ordered: Communication Order Physician to Nursing,11/17/24 12:30:00 EDT, Constant order, Lock foot of bed Ordered: Communication Order Physician to Nursing,11/17/24 12:30:00 EDT, Constant order, Encourage bed exercise every shift Ordered: Communication Order Physician to Nursing,11/17/24 12:30:00 EDT, Constant order, SEND ONE 10 MEPILEX DRESSING HOME WITH PATIENT AT TIME OF DISCHARGE Ordered: Discharge Patient,11/11/24 17:09:00 EDT Ordered: Discharge Planning Ongoing,11/17/24 12:30:00 EDT, Stop date 11/17/24 12:30:00 EDT, for post-hospitalization needs Ordered: Dressing Care/Change,11/17/24 12:30:00 EDT, Stop date 11/17/24 12:30:00 EDT, Day of surgery: Change dressing if 50% of width is saturated. If clot noted, remove with Normal Saline and apply new Mepilex dressing. If 2nd dressing saturated, remove and apply betadine to inci... Ordered: Dressing Care/Change,11/18/24 6:00:00 EDT, Stop date 11/18/24 6:00:00 EDT, On day after surgery @ 0600: Remove Julse wrap, soft cast padding and the 2 ABD dressings. Leave Mepilex on unless 50% of width is saturated. If clot noted, remove with Normal Saline and apply new M... Ordered: Dulcolax 5 mg Tab-EC,10 mg = 2 tab(s), Tab-EC, Oral, Daily PRN Constipation, Routine, Start date 11/19/24 12:30:00 EDT, 11/19/24 12:30:00 EDT Ordered: HYDROmorphone 1 mg/mL injectable solution,1 mg = 1 mL, Injection, IV Push, q2hr PRN Pain 8-10 for 5 day(s), Stop date 11/22/24 12:29:00 EDT, Routine, Start date 11/17/24 12:30:00 EDT, 11/17/24 12:30:00 EDT Ordered: Heel Roll,11/17/24 12:30:00 EDT, Stop date 11/17/24 12:30:00 EDT, To keep heels off bed atall times while in bed Ordered: Ice Therapy,11/17/24 12:30:00 EDT, Stop date 11/17/24 12:30:00 EDT, to affected area. Cryocuff protocol, instruct patient on use Ordered: Incentive Spirometry,11/17/24 12:30:00 EDT, q2hr for 2 dose(s), Stop date 11/17/24 16:59:00 EDT, every hour while awake, instruct until independent Ordered: Lactated Ringers IV Judy 1000 mL 1,000 mL,1,000 mL, IV, 80 mL/hr, Routine, Start date 11/17/24 12:30:00 EDT, 12.5 hour(s), Total volume (mL): 1,000, 100.6 kg, 2.16, m2 Ordered: Milk of Magnesia 8% Susp-Oral,30 mL, Susp-Oral, Oral, BID PRN Constipation, Routine, Startdate 11/17/24 12:30:00 EDT Ordered: Notify Provider Laboratory Results,11/17/24 12:30:00 EDT, FSBS > 70, FSBS < 400 Ordered: Occupational Therapy Evaluate Patient, Develop a Plan of Care and Implement Plan,11/17/24 12:30:00 EDT, Routine, Stop date 11/17/24 12:30:00 EDT, Wheelchair, Once, Day of Surgery, Total KneePost-Op, Post Muskuloskeletal surgery care Ordered: Overbed Frame / Trapeze,11/17/24 12:30:00 EDT, Constant Order Ordered: Pantoprazole [address] Tab,40 mg = 1 tab(s), Tab-DR, Oral, Daily, Routine, Start date 11/18/24 9:00:00 EDT, 11/17/24 12:30:00 EDT Ordered: Physical Therapy Evaluate Patient, Develop a Plan of Care and Implement Plan,11/17/24 12:30:00 EDT, Routine, Stop date 11/17/24 12:30:00 EDT, Wheelchair, Day of Surgery, Post Muskuloskeletalsurgery care Ordered: Regular Diet,11/17/24 12:30:00 EDT, Constant Indicator Ordered: Saline Lock Convert From IV,11/17/24 12:30:00 EDT, Stop date 11/17/24 12:30:00 EDT, when alert and taking fluids well. Ordered: Up to Chair,11/17/24 12:30:00 EDT, Constant Order, 2 times daily with meals starting on ORday with assistance as needed. Ordered: Urinary Catheter Removal,11/18/24 6:00:00 EDT, Stop date 11/18/24 6:00:00 EDT, Remove on postop day #1 Ordered: Vital Signs,11/17/24 12:30:00 EDT, q4hr Ordered: Weight Bearing,11/17/24 12:30:00 EDT, Weight bearing as tolerated, Constant Indicator Ordered: XR Knee 1 or 2 Views Right,11/17/24 12:30:00 EDT, Routine, Transport Mode: Wheelchair, Reason: Other (please specify), Reason: Post-op evaluation, No, in PACU, pp_set_radiology_subspecialty,[facility], 11/17/24 12:30:00 EDT Ordered: Zofran 4 mg/2 mL Injection,4 mg = 2 mL, Injection, IV Push, q6hr PRN Nausea/Vomiting, Routine, Start jacqueline (more content not included)...[facility] CenterComment [facility]:Result Comment: Electronically Signed By: Steve Duarte DO\.br\Date and Time Signed: 11/11/24 17:10 [id number] History of Present illness Narrative* Eliane Yoo MA - 10/30/2024 10:00 AM EDT . * Alexandra Berrios - 10/30/2024 10:00 AM EDT Images from the original note were not included. GENERAL HISTORY AND PHYSICAL: NAME: Michelle Rodriguez : 1960 CHIEF COMPLAINT: Right knee pain, stiffness with left knee discomfort. HISTORY OF PRESENT ILLNESS: Michelle is here for her bilateral knee osteoarthritis. She has had severalseries of cortisone as well as Visco supplementation. She has tried Meloxicam. She has no history of anesthesia complications. No history of deep venous thrombosis or pulmonary embolism. She is requesting right knee replacement. She comes in with numerous questions. Her spouse is supportive. She does need a walker. The last series of Visco supplementation provided little to no relief. There are no fever, chills, no arthralgias or myalgias. PAST MEDICAL HISTORY: History reviewed. No pertinent past medical history. PAST SURGICAL HISTORY: History reviewed. No pertinent surgical history. SOCIAL HISTORY: Social History Occupational History Not on file Tobacco Use Smoking status: Former Current packs/day: 0.00 Types: Cigarettes Quit date: 1999 Years since quittin.3 Smokeless tobacco: Never Vaping Use Vaping status: Never Used Substance and Sexual Activity Alcohol use: Not on file Drug use: Not on file Sexual activity: Not on file ALLERGIES: No Known Allergies MEDICATIONS: Current Outpatient Medications Medication Instructions Carbonyl Iron 15 MG chewable tablet Chew ibuprofen 800 MG tablet isosorbide mononitrate ER (IMDUR) 30 mg meloxicam (MOBIC) 15 mg, Oral, Daily metoprolol tartrate (LOPRESSOR) 50 mg nitroglycerin (NITROSTAT) 0.4 mg pantoprazole (PROTONIX) 40 mg simvastatin (ZOCOR) 20 mg REVIEW OF SYSTEMS: The review of systems, history and current medications list are all reviewed today. Vitals: Visit Vitals Ht 5' 5 Wt 219 lb BMI 36.44 kg/m Smoking Status Former BSA 2.13 m PHYSICAL EXAM: On physical exam, she is alert and oriented. Vital signs are stable. The bilateral knees have hypertrophic changes, right worse than left. There is mild aseptic swelling. There is moderate to severe tenderness of the medial and patellofemoral joint. Her right knee gets full extension. She will flex to 108. The left knee gets full extension with flexion to 112. Crepitance is present. Collateral ligaments are intact. Jose J and drawer are stable. Gait is stiff and antalgic. X-rays, permanently saved to the patient's record, are reviewed bilateral knees AP, lateral and sunrise views weight bearing films show end stage degenerative changes of the medial and patellofemoraljoint with varus deformity. This is grade IV in nature. There is no fracture, dislocation, tumor orinfection seen. Surgical History and Physical: GENERAL AND PSYCHOLOGICAL: The patient is alert and oriented for age. HEAD AND E.E.N.T.: The skull is normocephalic. There is no mass or sign of trauma. NECK: The neck is supple. There is good range of motion. There is no mass or adenopathy appreciated. The thyroid is not enlarged. CARDIAC: The heart is regular. There is no murmur or ectopy appreciated. LUNGS: Inspiratory and expiratory excursions are symmetrical. The lung trevino are clear in all quadrants. ABDOMEN: The texture is soft. Bowel sounds are heard well in all quadrants. There is no tenderness to palpation. There is no organomegaly appreciated. OSTEOPATHIC AND STRUCTURAL: There is no gross evidence of kyphosis, lordosis, scoliosis, or apparent leg length discrepancy, with no acute tissue texture changes in sitting or standing positions. ASSESSMENT: Bilateral knee advanced osteoarthritis, right worse than left. Antalgic gait. Failure of conservative and injection care. PLAN: The nature of the findings were discussed at length. She has gone through conservative and injection care for several years. The last series of Visco supplementation which she has had several times provided little to no relief. We discussed the role of total knee replacement. The perioperative course, time, healing, commitment and expectations were all reviewed. The nature of the findings were discussed at length. Total knee arthroplasty was reviewed at length. The patient has exhausted conservative management and has activities of daily living disruption as dictated above. The patient has attempted significant prolonged conservative care and is starting to have difficulty getting dressed, walking simple distances such as 20-30' and has significant night disruption the majority of the time. The patient has exhausted all conservative management as well as corticosteroid and Visco supplementation injections on numerous occasions. We discussed total knee replacements with the implants utilized, hospital course, rehab time and commitment, as well as time off work were all reviewed. The risks, benefits, complications, and reasonable expectations of this procedure were discussed. These include but are not limited to continued pain, dissatisfaction, antalgic gait, infection, infection requiring multiple surgeries with IV antibiotics with cement spacer, possible amputation, stiff ness, stiffness requiring manipulation, bleeding, bleeding requiring transfusion, hematoma, wound dehiscence, nerve, vessel or tendon injury, foot drop, anesthesia complications, blood clot, pulmonary embolism, myocardial infarction, arrhythmia, stroke and were all reviewed. The potential for product recall or failure was discussed. The patient is aware that results cannot be guaranteed. care home antibiotic prophylaxis with dental or invasive surgical work was discussed. We had a very lengthy discussion regarding the pros, cons, risks and benefits and reasonable expectations. The patient voices verbal understanding of which I am personally involved with the informed consent process. Consent forms are signed and witnessed. Numerous questions were answered. Routine testing will be arranged and I will see the patient post operative for repeat x-ray and exam. Patient is discharged instable condition. Consent forms are signed and witnessed. She will undergo routine presurgical testing and we will move forward in the near future. I will see her back postoperatively. Pharmacy is assigned. She will be Ortho 360, outpatient surgery, aspirin 325 once a day for four weeks for DVT prevention. We will assist with a walker. She voices verbal understanding. She is discharged in stable condition. Steve Duarte D.O. Cosigned by Steve Duarte DO at 11/03/2024 3:25 PM EDT documented in this encounterLake Regional Health [id number] History of Present illness Narrative* Eliane Yoo MA - 06/03/2024 1:45 PM ESTAssociated Order(s): L Inj/Asp: bilateral knee Post-Procedure Diagnose(s): Bilateral primary osteoarthritis of knee L Inj/Asp: bilateral knee on 06/03/2024 1:45 PM Indications: diagnostic evaluation Details: 22 G needle Medications (Right): 2 mL sodium hyaluronate 16.8 MG/2ML Medications (Left): 2 mL sodium hyaluronate 16.8 MG/2ML Outcome: tolerated well, no immediate complications Consent was given by the patient. * Steve Duarte DO - 06/03/2024 1:45 PM EST GelSyn 3 of 3 Injection Bilateral knee Patient is seen and evaluated today for bilateral knee pain and stiffness. Continued swelling and stiffness despite conservative course with ice, Tylenol, NSAID's and compression. Did well with injections the last last two weeks. Physical Exam: The patient is examined in the office today. The bilateral knees have mild aseptic swelling. Hypertrophic changes are noted. AROM is decreased with pain. Crepitance is present in multiple compartments. Tenderness is moderate to severe thru multiple compartments. Collateral ligaments are intact to stress testing at 0 and 30 degrees. Positive grind test of the patella. Gait is stiff and antalgic with occasional assistive device reported. Hip exam is stable. Negative bench and straight leg raise testing. NVM intact distally without footdrop. Calves are supple without sign of infection, ulceration or DVT. Xrays: Multiple weightbearing views (AP, Lateral and sunrise) are reviewed for the permanent PACS record. Advanced grade 3-4 degenerative changes are present of the bilateral knee. No fracture, dislocation,tumor or infection seen. Images are reviewed with the patient at length. Assessment: Bilateral knee Osteoarthritis-M17.0 Bilateral knee pain-M25.561/M25.562 Antalgic gait-R26 Treatment/Plan: The nature of the findings were discussed at length. Xray imaging and severity discussed. Conservative management with ice, heat, exercise, strengthening, weight loss, compression wrap/bracing was reviewed. Anti-inflammatory medication , if stable with GI and kidney function, was reviewed. OTC and prescription options were discussed. Tylenol dosing parameters and daily limits for breakt thru painwas reviewed. Cortisone injections can be provided up to 3 per year and no closer than a month interval. Hyaluronic acid viscosupplementation options and expectations were discussed at length. Patient is aware results are not guaranteed. We discussed the role of knee replacement surgery, indications, approach, implants, and rehab process were all reviewed. After lengthy discussion, the patient elects to move forward with the third viscosupplementation injection with GelSyn bilateral. Under sterile technique with the knee extended and supported, 2 ml of GelSyn was injected to the bilateral knee suprapatellar pouch. Needle was removed and adequate hemostasis was achieved. The patient tolerated both injections well. Post injection restriction of 50% activity reduction the day of the injection with icing techniques 1-2 times per 10-15 minutes each knee were reiterated. Patient was ambulatory and discharged in stable condition. Any reactions, concerns or continued pain will be reported viaphone call or return visit. All questions were answered. Follow-up will be in 2 months if still having pain or concerns. documented in this encounterLake Regional Health [id number] History of Present illness Narrative* Eliane Yoo MA - 05/27/2024 1:45 PM ESTAssociated Order(s): L Inj/Asp: bilateral knee Post-Procedure Diagnose(s): Bilateral primary osteoarthritis of knee L Inj/Asp: bilateral knee on 05/27/2024 1:55 PM Indications: diagnostic evaluation Details: 22 G needle Medications (Right): 2 mL sodium hyaluronate 16.8 MG/2ML Medications (Left): 2 mL sodium hyaluronate 16.8 MG/2ML Outcome: tolerated well, no immediate complications Consent was given by the patient. * Steve Duarte DO - 05/27/2024 1:45 PM EST GelSyn 2 of 3 Injection Bilateral knee Patient is seen and evaluated today for bilateral knee pain and stiffness. Continued swelling and stiffness despite conservative course with ice, Tylenol, NSAID's and compression. Did well with injections last week. Physical Exam: The patient is examined in the office today. The bilateral knees have mild aseptic swelling. Hypertrophic changes are noted. AROM is decreased with pain. Crepitance is present in multiple compartments. Tenderness is moderate to severe thru multiple compartments. Collateral ligaments are intact to stress testing at 0 and 30 degrees. Positive grind test of the patella. Gait is stiff and antalgic with occasional assistive device reported. Hip exam is stable. Negative bench and straight leg raise testing. NVM intact distally without footdrop. Calves are supple without sign of infection, ulceration or DVT. Xrays: Multiple weightbearing views (AP, Lateral and sunrise) are reviewed for the permanent PACS record. Advanced grade 3-4 degenerative changes are present of the bilateral knee. No fracture, dislocation,tumor or infection seen. Images are reviewed with the patient at length. Assessment: Bilateral knee Osteoarthritis-M17.0 Bilateral knee pain-M25.561/M25.562 Antalgic gait-R26 Treatment/Plan: The nature of the findings were discussed at length. Xray imaging and severity discussed. Conservative management with ice, heat, exercise, strengthening, weight loss, compression wrap/bracing was reviewed. Anti-inflammatory medication , if stable with GI and kidney function, was reviewed. OTC and prescription options were discussed. Tylenol dosing parameters and daily limits for breakt thru painwas reviewed. Cortisone injections can be provided up to 3 per year and no closer than a month interval. Hyaluronic acid viscosupplementation options and expectations were discussed at length. Patient is aware results are not guaranteed. We discussed the role of knee replacement surgery, indications, approach, implants, and rehab process were all reviewed. After lengthy discussion, the patient elects to move forward with the second viscosupplementation injection with GelSyn bilateral. Under sterile technique with the knee extended and supported, 2 ml of GelSyn was injected to the bilateral knee suprapatellar pouch. Needle was removed and adequate hemostasis was achieved. The patient tolerated both injections well. Post injection restriction of 50% activity reduction the day of the injection with icing techniques 1-2 times per 10-15 minutes each knee were reiterated. Patient was ambulatory and discharged in stable condition. Any reactions, concerns or continued pain will be reported via phone call or return visit. All questions were answered. Follow-up next week for the third bilateral knee GelSyn injection. documented in this encounterLake Regional Health [id number] History of Present illness Narrative* Eliane Yoo MA - 05/20/2024 2:15 PM ESTAssociated Order(s): L Inj/Asp: bilateral knee Post-Procedure Diagnose(s): Bilateral primary osteoarthritis of knee L Inj/Asp: bilateral knee on 05/20/2024 2:25 PM Indications: diagnostic evaluation Details: 22 G needle Medications (Right): 2 mL sodium hyaluronate 16.8 MG/2ML Medications (Left): 2 mL sodium hyaluronate 16.8 MG/2ML Outcome: tolerated well, no immediate complications Consent was given by the patient. * Steve Duarte DO - 05/20/2024 2:15 PM EST GelSYn1 of 3 Injection Bilateral knee Patient is seen and evaluated today for bilateral knee pain and stiffness. Continued swelling and stiffness despite conservative course with ice, Tylenol, NSAID's and compression. Occasional buckle sensation. Night disruption is present and increasing. Progression of pain. Occasional assistive device required. Here today to review non-operative conservative options and discuss indications and overview of knee arthroplasty. Physical Exam: The patient is examined in the office today. The bilateral knees have mild aseptic swelling. Hypertrophic changes are noted. AROM is decreased with pain. Crepitance is present in multiple compartments. Tenderness is moderate to severe thru multiple compartments. Collateral ligaments are intact to stress testing at 0 and 30 degrees. Positive grind test of the patella. Gait is stiff and antalgic with occasional assistive device reported. Hip exam is stable. Negative bench and straight leg raise testing. NVM intact distally without footdrop. Calves are supple without sign of infection, ulceration or DVT. Xrays: Multiple weightbearing views (AP, Lateral and sunrise) are reviewed for the permanent PACS record. Advanced grade 3-4 degenerative changes are present of the bilateral knee. No fracture, dislocation,tumor or infection seen. Images are reviewed with the patient at length. Assessment: Bilateral knee Osteoarthritis-M17.0 Bilateral knee pain-M25.561/M25.562 Antalgic gait-R26 Treatment/Plan: The nature of the findings were discussed at length. Xray imaging and severity discussed. Conservative management with ice, heat, exercise, strengthening, weight loss, compression wrap/bracing was reviewed. Anti-inflammatory medication , if stable with GI and kidney function, was reviewed. OTC and prescription options were discussed. Tylenol dosing parameters and daily limits for breakt thru painwas reviewed. Cortisone injections can be provided up to 3 per year and no closer than a month interval. Hyaluronic acid viscosupplementation options and expectations were discussed at length. Patient is aware results are not guaranteed. We discussed the role of knee replacement surgery, indications, approach, implants, and rehab process were all reviewed. After lengthy discussion, the patient elects to move forward with viscosupplementation injection with GelSyn bilateral. Under sterile technique with the knee extended and supported, 2 ml of GelSyn was injected to the bilateral knee suprapatellar pouch. Needle was removed and adequate hemostasis was achieved. The patient tolerated both injections well. Post injection restriction of 50% activity reduction the day of the injection with icing techniques 1-2 times per 10-15 minutes each knee were reiterated. Patient was ambulatory and discharged in stable condition. Any reactions, concerns or continued pain will be reported via phone call or return visit. All questions were answered. Follow-up next week for second bilateral knee GelSyninjection. documented in [facility] encounterL[facility] [id number] Evaluation + Plan note Extracted from: Title:ANES Post-operative Note---General Author: Montez Ford MD. Date:05/12/24 Plan Transfer/Discharge: Transfer/Discharge Discharge when meets criteria ( To home ). Extracted from: Title:ANES Pre-operative Note 2022 Author:Montez Sweeney. Date:05/12/24 Plan [place] [employer]esthesiologists (ASA) physical status classification: Class III. Anesthetic Preoperative Plan: Anesthesia General. [facility] 11-25-2024 Hospital Discharge instructions Patient Education 05/12/2024 08:26:48 Diverticulosis MAGR (CUSTOM) Diverticulosis Many people have small pouches in their colon called diverticulum. The diverticulum bulge outward through weak spots in the colon. You could have one or more of these pouches in the colon. The condition of having these pouches in the colon is called diverticulosis or diverticular disease. Diverticulosis is usually diagnosed by tests to evaluate something else. For example, you may have had a colonoscopy to screen for colon cancer when the diverticulosis was found. Most people with diverticulosis do not have any discomfort or problems. If symptoms develop, they may include mild cramps, bloating, and constipation. A complication of this condition is called diverticulitis. This is when the diverticulum become inflamed and infected. How to treat diverticulosis: Increasing the amount of fiber in the diet may reduce symptoms of diverticulosis and prevent complications such as diverticulitis (infected diverticuli). Fiber keeps stool soft and lowers pressure inside the colon so that bowel contents can move througheasily. You should eat 20 to 35 grams of fiber each day. The table below shows the amount of fiber in some foods that you can easily add to your diet. Adding fiber slowly may decrease the bloating and fullness sometimes felt with an immediate high fiber diet. The doctor may also recommend taking a fiber product such as Citrucel or Metamucil once a day. In the past people with diverticulosis were to avoid nuts, corn, and seeds. This has not been foundto be true. If you find that certain foods create cramping or bloating, avoid that food. Foods high in fiber include: Fresh fruits, fresh vegetables, legumes (beans), whole wheat bread, bran muffins or cereal, and nuts. See the table below for examples of high fiber foods. Remember, your goal is 20- 35 grams per day. Amount of fiber in different foods Food Serving Grams of fiber Fruits Apple (with skin) 1 medium apple 4.4 Banana 1 medium banana 3.1 Oranges 1 orange 3.1 Prunes 1 cup, pitted 12.4 Juices Apple, unsweetened, w/added ascorbic acid 1 cup 0.5 Grapefruit, white, canned, sweetened 1 cup 0.2 Grape, unsweetened, w/added ascorbic acid 1 cup 0.5 Mitchell 1 cup 0.7 Vegetables Cooked Green beans 1 cup 4.0 Carrots 1/2 cup sliced 2.3 Peas 1 cup 8.8 Potato (baked, with skin) 1 medium potato 3.8 Raw Langston (with peel) 1 cucumber 1.5 Lettuce 1 cup shredded 0.5 Tomato 1 medium tomato 1.5 Spinach 1 cup 0.7 Legumes Baked beans, canned, no salt added 1 cup 13.9 Kidney beans, canned 1 cup 13.6 Hurd beans, canned 1 cup 11.6 Lentils, boiled 1 cup 15.6 Breads, pastas, flours Bran muffins 1 medium muffin 5.2 Oatmeal, cooked 1 cup 4.0 White bread 1 slice 0.6 Whole-wheat bread 1 slice 1.9 Pasta and rice, cooked Macaroni 1 cup 2.5 Rice, brown 1 cup 3.5 Rice, white 1 cup 0.6 Spaghetti (regular) 1 cup 2.5 Nuts Almonds 1/2 cup 8.7 Peanuts 1/2 cup 7.9 Chart from [facility] 2013. SEEK IMMEDIATE MEDICAL CARE IF: You develop abdominal (belly) pain. An oral temperature above _ 101 F__develops. Repeated vomiting occurs. Blood is being passed in stools (bright red or black tarry stools). You develop any bowel problems or changes which you have not had before. Extra Information: To learn how much fiber and other nutrients are in different foods, visit the [employer] (USDA) National Nutrient Database at: http://www.nal.usda.gov/fnic/foodcomp/search/ Created using data from the USDA National Nutrient Database for Standard Reference. Available at http://www.nal.usda.gov/fnic/foodcomp/search/. Information adapted from: [employer] Patient Information 2009 [employer] 2012 [email or web address] 05/12/2024 08:26:46 Colonoscopy, Care After Surgery Salam (CUSTOM) Colonoscopy Care After Surgery Please read the instructions outlined below and refer to this sheet in the next few weeks. These discharge instructions provide you with general information on caring for yourself after you leave thespital. Your doctor may also give you specific instructions. While your treatment has been planned according to the most current medical practices available, unavoidable complications occasionally occur. If you have any problems or questions after discharge, please call your doctor. ACTIVITY You may resume your regular activity, but move at a slower pace for the next 24 hours. Take frequent rest periods for the next 24 hours. Walking will help get rid of the air and reduce the bloated feeling in your abdomen (belly). No driving for 24 hours (because of the anesthesia (medicine) used during the test). You may shower. Do not sign any important legal documents or operate any machinery for 24 hours (because of the anesthesia used during the test). NUTRITION Drink plenty of fluids. You may resume your normal diet as instructed by your doctor. Begin with a light meal and progress to your normal diet. Heavy or fried foods are harder to digestand may make you feel nauseated (sick to your stomach). Avoid alcoholic beverages for 24 hours or as instructed. MEDICATIONS You may resume your normal medications unless your doctor tells you otherwise. WHAT YOU CAN EXPECT TODAY Some feelings of bloating in the abdomen. Passage of more gas than usual. Spotting of blood in your stool or on the toilet paper. FOLLOW-UP Your doctor will discuss the results of your test with you. SEEK IMMEDIATE MEDICAL ATTENTION IF: There is more than a spotting of blood in your stool. There is abdominal distention (your abdomen is swollen). There is vomiting. You have a temperature over 101.5 F. There is abdominal pain or discomfort that is severe or gets worse throughout the day. Follow Up Care 04/30/2024 15:54:15 With:Steve VAZQUEZ Address: [address], [address] [facility] [address] [place] [address]- Business (1) When: only if needed [facility] [id number] NoteProgress Note-Physician Patient: MICHELLE RODRIGUEZ MRN: Age: 64 years Sex: Female : 1960 Associated Diagnoses: None Author: Montez Ford MD Postoperative Information Postoperative disposition: Postoperative disposition: To PACU. Optimetrix number: Optimetrix number [id number]. Anesthetic utilized: General. Health Status Allergies: Allergic Reactions (Selected) No Known Allergies No Known Medication Allergies Physical Examination Vital Signs 05/12/2024 8:30 EST Heart Rate Monitored 56 bpm LOW Respiratory Rate Monitored 20 br/min Systolic Blood Pressure 124 mmHg Diastolic Blood Pressure 83 mmHg Blood Pressure Location Left arm Mean Arterial Pressure, Cuff 97 mmHg SpO2 95 % 05/12/2024 8:25 EST Heart Rate Monitored 52 bpm LOW Respiratory Rate Monitored 12 br/min Systolic Blood Pressure 116 mmHg Diastolic Blood Pressure 74 mmHg Blood Pressure Location Left arm Mean Arterial Pressure, Cuff 88 mmHg SpO2 95 % 05/12/2024 8:20 EST Temperature Temporal Artery 36.6 DegC Heart Rate Monitored 55 bpm LOW Respiratory Rate Monitored 10 br/min Systolic Blood Pressure 109 mmHg Diastolic Blood Pressure 74 mmHg Blood Pressure Location Left arm Mean Arterial Pressure, Cuff 86 mmHg SpO2 95 % Pain Assessment: Controlled. General: Awake, Appropriate. Respiratory: Adequate air exchange. Cardiovascular: Stable. Neurological Assessment Anesthetic outcome No anesthetic complications noted. Adequate pain relief. Review / Management Condition: Stable. Plan Transfer/Discharge: Transfer/Discharge Discharge when meets criteria ( To home ).[facility]Comment [facility]:Result Comment: Electronically Signed By: Montez Ford MD\.br\Date and Time Signed: 05/12/24 08:37 EST 05-12-2024 NoteProgress Note-Physician Patient: MICHELLE RODRIGUEZ MRN: Age: 64 years Sex: Female : 1960 Associated Diagnoses: None Author: Montez Ford MD Preoperative Information Anesthesia Preop Info: Time patient last ate or drank 05/12/2024 00:00:00. Anesthesia history: Patient history: None. Family history+: None. Informed consent: Signed by patient. Re-evaluation prior to induction: Initial evaluation reviewed: No significant change. Review of Systems Eye Ear/Nose/Mouth/Throat Respiratory: No shortness of breath, No cough. Cardiovascular: Negative, patient reports negative stress test about 2 years ago, No chest pain. Musculoskeletal Neurologic Health Status Allergies: Allergic Reactions (Selected) No Known Allergies No Known Medication Allergies, Allergies (2) Active Severity Reaction No Known Allergies None Documented No Known Medication Allergies None Documented Current medications: (Selected) Inpatient Medications Ordered Lactated Ringers IV Judy 1000 mL 1,000 mL: 1,000 mL, IV, 100 mL/hr, Routine, Start date 05/12/24 8:27:00 EST, 10 hour(s), Total volume (mL): 1,000, 99 kg, 2.13, m2 Sodium Chloride 0.9% IV Judy 1000 mL 1,000 mL: 1,000 mL, IV, 20 mL/hr, Routine, Start date 05/12/24 6:37:00 EST, 50 hour(s), Total volume (mL): 1,000, 99 kg, 2.13, m2 Documented Medications Documented Metoprolol tartrate 50 mg Tab: 50 mg = 1 tab(s), Oral, BID, High blood pressure aspirin 325 mg Oral EC Tab: 325 mg = 1 tab(s), Oral, Daily, Refills(s) 0, Prophylaxis ferrous sulfate 325 mg Tab: 325 mg = 1 tab(s), Oral, Daily, Refills(s) 0, Prophylaxis isosorbide mononitrate 30 mg ER Tab: 30 mg = 1 tab(s), Oral, qAM, Refills(s) 0 meloxicam 15 mg Tab: 15 mg = 1 tab(s), Oral, Daily, Arthritis nitroglycerin 0.4 mg sublingual Tab: 0.4 mg = 1 tab(s), SubLingual, q5min, PRN for chest pain, Refills(s) 0 simvastatin 20 mg Tab: 20 mg = 1 tab(s), Oral, qPM, High cholesterol, Home Medications (7) Active aspirin 325 mg Oral EC Tab 325 mg = 1 tab(s), Oral, Daily ferrous sulfate 325 mg Tab 325 mg = 1 tab(s), Oral, Daily isosorbide mononitrate 30 mg ER Tab 30 mg = 1 tab(s), Oral, qAM meloxicam 15 mg Tab 15 mg = 1 tab(s), Oral, Daily Metoprolol tartrate 50 mg Tab 50 mg = 1 tab(s), Oral, BID nitroglycerin 0.4 mg sublingual Tab 0.4 mg = 1 tab(s), PRN, SubLingual, q5min simvastatin 20 mg Tab 20 mg = 1 tab(s), Oral, qPM , Medications (2) Active Scheduled: (0) Continuous: (2) Lactated Ringers 1,000 mL 1,000 mL, IV, 100 mL/hr Sodium Chloride 0.9% 1,000 mL 1,000 mL, IV, 20 mL/hr PRN: (0) Problem list: All Problems Adrenal gland hematoma / SNOMED CT 433231651 / Confirmed BMI 36.0-36.9,adult / SNOMED CT 669598114 / Confirmed Class 3 obesity / SNOMED CT 4666663825 / Confirmed Former smoker / SNOMED CT 12753569 / Confirmed GERD (gastroesophageal reflux disease) / SNOMED CT 285540200 / Confirmed History of recurrent UTI (urinary tract infection) / SNOMED CT 0051069027 / Confirmed Hyperlipidemia / SNOMED CT 06632413 / Confirmed Hypertension / SNOMED CT 4453296457 / Confirmed Mass of parotid gland / SNOMED CT 448562961 / Confirmed Migraines / SNOMED CT 87721182 / Confirmed Occult blood positive stool / SNOMED CT 8308155647 / Confirmed Other urethral stricture, female / SNOMED CT 568538117 / Confirmed Positive fecal occult blood test / SNOMED CT 1984346947 / Confirmed Urinary frequency / SNOMED CT 618090210 / Confirmed Uterine leiomyoma / SNOMED CT 475337518 / Confirmed Vitamin D deficiency / SNOMED CT 36897565 / Confirmed Canceled: Abdominal pain / SNOMED CT 44751268 Canceled: Essential hypertension / SNOMED CT 61955831 Canceled: Foul smelling urine / SNOMED CT 3594955611 Canceled: Vaginal odor / SNOMED CT 2180038231, Active Problems (16) Adrenal gland hematoma BMI 36.0-36.9,adult Class 3 obesity Former smoker GERD (gastroesophageal reflux disease) History of recurrent UTI (urinary tract infection) Hyperlipidemia Hypertension Mass of parotid gland Migraines Occult blood positive stool Other urethral stricture, female Positive fecal occult blood test Urinary frequency Uterine leiomyoma Vitamin D deficiency Histories Past Medical History: No active or resolved past medical history items have been selected or recorded. Family History: Hypertension Mother Primary malignant neoplasm of lung Father Arthritis Grandparent Migraine Mother Hyperlipidemia Mother Leukemia Grandparent Procedure history: Cysto/UD ([id number]) on 09/23/2013 at 53 Years. Cysto/UD ([id number]) on 04/29/2003 at 43 Years. Tubal ligation (229524528). Rotator cuff repair (619353690). Superficial parotidectomy (571782409). Social History Social & Psychosocial Habits Alcohol 04/30/2024 Risk Assessment: Denies Alcohol Use Substance Abuse 04/30/2024 Risk Assessment: Denies Substance Abuse Tobacco 04/30/2024 Tobacco Use: Forme (more content not included)...[facility] CenterComment on above:Result Comment: Electronically Signed By: Eh BATES, Montez Clemons\.br\Date and Time Signed: 05/12/24 08:29 [id number] NoteColonoscopy Procedure Report Patient: MICHELLE RODRIGUEZ Age: 64 years Sex: Female : 1960 Associated Diagnoses: None Author: Steve VAZQUEZ MD Pre-Procedure Procedure Date 05/12/2024 08:25:00 . Procedure Type: Colonoscopy. Procedure provider Steve Vazquez M.D.. Referred by Maggie Baldwin M.D.. Current history and physical Documented on chart. Colorectal neoplasm risk assessment Average risk. Informed Consent After discussing the rationale, risks and benefits, and alternatives to this procedure, the patient provided signed consent for the procedure. Pre-procedure diagnosis: Age 50 years or over. ASA Classification: Class II. . Monitoring: See anesthesia record. . Procedure The procedure was performed in the hospital. See anesthesia record for sedation given during procedure. Rectal exam was performed and was normal. The patient was positioned starting in the left lateral decubitus position. Endoscope type used was an adult-size. The endoscope was lubricated then introduced through the anus. The scope was advanced to the cecum verified by photographing the appendiceal orifice, verified by photographing the ileocecal valve. No difficulties encountered during the procedure. The bowel preparation quality was good and was adequate (see polyps greater than or equal to 6 millimeters). The patient tolerated the procedure well. Findings Diverticulosis was identified in the sigmoid colon. The severity of the diverticulosis is moderate. Images Procedure images: [id number] anal canal rectal veins sigmoid diverticulosis ileocecal valve appendiceal orifice . Post-Procedure Complications: none. Estimated blood loss: none. Specimens: none. Devices/ implants: none left in place. Impression and Plan Diagnosis: Diverticulosis of sigmoid colon (HWD68-BD K57.30, Discharge, Medical). Course: Progressing as expected. Recommendations: Repeat colonoscopy:: In 10 years. Follow-up:: if problems/questions. Diet:: Regular diet. Medication resumption:: Continue current medications. Return to activities:: After 24 hours. Education and Follow-up: Counseled: Family.[facility] CenterComment on above:Other Comment: Missing Attachment - attachment storage system not supported [id number] Can be viewed in source system Missing Attachment - attachment storage system not supported [id number] Can be viewed in source systemMissing Attachment - attachment storage system not supported [id number] Can be viewed in source systemMissing Attachment - attachment storage system not supported [id number] Can be viewed in source systemMissing Attachment - attachment storage system not supported [id number] Can be viewed in source systemMissing Attachment - attachment storage system not supported [id number] Can be viewed in source [id number] NotePatient Education - Text Diverticulosis Many people have small pouches in their colon called diverticulum. The diverticulum bulge outward through weak spots in the colon. You could have one or more of these pouches in the colon. The condition of having these pouches in the colon is called diverticulosis or diverticular disease. Diverticulosis is usually diagnosed by tests to evaluate something else. For example, you may have had a colonoscopy to screen for colon cancer when the diverticulosis was found. Most people with diverticulosis do not have any discomfort or problems. If symptoms develop, they may include mild cramps, bloating, and constipation. A complication of this condition is called diverticulitis. This is when the diverticulum become inflamed and infected. How to treat diverticulosis: Increasing the amount of fiber in the diet may reduce symptoms of diverticulosis and prevent complications such as diverticulitis (infected diverticuli). Fiber keeps stool soft and lowers pressure inside the colon so that bowel contents can move througheasily. You should eat 20 to 35 grams of fiber each day. The table below shows the amount of fiber in some foods that you can easily add to your diet. Adding fiber slowly may decrease the bloating and fullness sometimes felt with an immediate high fiber diet. The doctor may also recommend taking a fiber product such as Citrucel or Metamucil once a day. In the past people with diverticulosis were to avoid nuts, corn, and seeds. This has not been foundto be true. If you find that certain foods create cramping or bloating, avoid that food. Foods high in fiber include: Fresh fruits, fresh vegetables, legumes (beans), whole wheat bread, bran muffins or cereal, and nuts. See the table below for examples of high fiber foods. Remember, your goal is 20- 35 grams per day. Amount of fiber in different foods Food Serving Grams of fiber Fruits Apple (with skin) 1 medium apple 4.4 Banana 1 medium banana 3.1 Oranges 1 orange 3.1 Prunes 1 cup, pitted 12.4 Juices Apple, unsweetened, w/added ascorbic acid 1 cup 0.5 Grapefruit, white, canned, sweetened 1 cup 0.2 Grape, unsweetened, w/added ascorbic acid 1 cup 0.5 Mitchell 1 cup 0.7 Vegetables Cooked Green beans 1 cup 4.0 Carrots 1/2 cup sliced 2.3 Peas 1 cup 8.8 Potato (baked, with skin) 1 medium potato 3.8 Raw [place] (with peel) 1 cucumber 1.5 Lettuce 1 cup shredded 0.5 Tomato 1 medium tomato 1.5 Spinach 1 cup 0.7 Legumes Baked beans, canned, no salt added 1 cup 13.9 Kidney beans, canned 1 cup 13.6 Hurd beans, canned 1 cup 11.6 Lentils, boiled 1 cup 15.6 Breads, pastas, flours Bran muffins 1 medium muffin 5.2 Oatmeal, cooked 1 cup 4.0 White bread 1 slice 0.6 Whole-wheat bread 1 slice 1.9 Pasta and rice, cooked Macaroni 1 cup 2.5 Rice, brown 1 cup 3.5 Rice, white 1 cup 0.6 Spaghetti (regular) 1 cup 2.5 Nuts Almonds 1/2 cup 8.7 Peanuts 1/2 cup 7.9 Chart from [facility] 2013. SEEK IMMEDIATE MEDICAL CARE IF: You develop abdominal (belly) pain. An oral temperature above _ 101??? F__develops. Repeated vomiting occurs. Blood is being passed in stools (bright red or black tarry stools). You develop any bowel problems or changes which you have not had before. Extra Information: To learn how much fiber and other nutrients are in different foods, visit the [place] Department of Agriculture (USDA) National Nutrient Database at: http://www.nal.usda.gov/fnic/foodcomp/search/ Created using data from the USDA National Nutrient Database for Standard Reference. Available at http://www.nal.usda.gov/fnic/foodcomp/search/. Information adapted from: ExitCare??? Patient Information ???2009 [facility] [employer] [facility]. [facility] 2012 [email or web address]-the-[email or web address] Colonoscopy Care After Surgery Please read the instructions outlined below and refer to this sheet in the next few weeks. These discharge instructions provide you with general information on caring for yourself after you leave thespital. Your doctor may also give you specific instructions. While your treatment has been planned according to the most current medical practices available, unavoidable complications occasionally occur. If you have any problems or questions after discharge, please call your doctor. ACTIVITY You may resume your regular activity, but move at a slower pace for the next 24 hours. Take frequent rest periods for the next 24 hours. Walking will help get rid of the air and reduce the bloated feeling in your abdomen (belly). No driving for 24 hours (because of the anesthesia (medicine) used during the test). You may shower. Do not sign any important legal documents or operate any machinery for 24 hours (because of the anesthesia used during the test). NUTRITION Drink plenty of fluids. You may resume your normal diet as instructed by your doctor. Beg (more content not included)...[facility]11-25-2024 Note History and Physical Patient: MICHELLE RODRIGUEZ Age: 64 years Sex: Female : 1960 Associated Diagnoses: None Author: Steve VAZQUEZ MD Subjective no changes to H & PFThe MetroHealth SystemComment on above:Result Comment: Electronically Signed By: Steve VAZQUEZ MD\.br\Date and Time Signed: 05/12/24 08:25 [id number] Telephone encounter Note* Telephone Encounter - Pia Car - 05/02/2024 8:03 AM EST Forwarded message to emily to authorize [facility] [id number] Miscellaneous Notes* Telephone Encounter - Pia Car - 05/02/2024 8:03 AM EST Forwarded message to emily to authorize * Telephone Encounter - Tawana Dawn MA - 05/01/2024 4:48 PM EST Per MTP - okay to auth gel injections. She will need xrays at first inj appt. * Telephone Encounter - Pia Car - 04/30/2024 9:37 AM EST ZURDO/Gelsyn 3 09/06/23, lxr 06/26/23 Asking to have visco authorized and try to have before end of year. See for appt first? Or try to auth? (Mtp pt) documented in this encounterLake [facility] Health [id number] Telephone encounter Note* Telephone Encounter - Tawana Dawn MA - 05/01/2024 4:48 PM EST Per MTP - okay to auth gel injections. She will need xrays at first inj appt. [facility] [id number] NoteGeneral Surgery Office/Clinic Note Chief Complaint consultation for positive occult stool HPI Staff 64 year old female presents on consultation from Dr. Baldwin for positive occult stool. Denies abdominal or rectal pain. No rectal bleeding or change in bowel habits. Denies nausea or vomiting. No unexplained weight loss. Never had colonoscopy in the past. No known family history of colon cancer. History of Present Illness 64 yo female with h/o htn, hypercholesterolemia, migraines, referred for positive fecal occult blood test; denies change in bms or blood in stools, no abd complaints; on regular asa and Meloxicam daily; no tobacco use; no fmhx of GI malignancy or IBD. Review of Systems PHQ Score Initial Depression Screen Score: 0 SCORE ROS - Provider Constitutional: no fever, no sweats, no weight loss. Eyes: yes glasses, no blurred vision, no visual loss. ENMT: no dentures, no hoarseness, no swallowing difficulties, no hearing loss, no ear infection(s),no nose bleeds. Cardiovascular: normal blood pressure, no chest pain, regular heartbeat, no heart murmur. Respiratory: no shortness of breath, no cough, no asthma, no wheezing. Gastrointestinal: no nausea, no vomiting, no diarrhea, no constipation, no blood in stool, no change in bowel habits, no abdominal pain, no hepatitis. Genitourinary: no kidney stones, no urine infection, no dysuria. Musculoskeletal: no pain, no weakness. Skin: no changing moles, no rash, no skin lumps. Neurologic: no seizures, no epilepsy, no headache. Psychiatric: no emotional or psychiatric problem. Heme/Lymph: no bleeding problems, no anemia, no blood clots, no transfusions. Allergy/Immunologic: no swollen lymph nodes/glands, no IV drug abuse. Other: Additional ROS info: Except as noted in the above Review of Systems and in the History of Present Illness, all other systems have been reviewed and are negative or noncontributory. Physical Exam Vitals & Measurements HR: 76(Peripheral) RR: 16 BP: 132/100 HT: 65 in HT: 165.1 cm WT: 99 kg WT: 218.257 lb BMI: 36.32 HEENT: normal conjunctiva, sclera clear, no scleral icterus, EOM intact, PERRLA, oral mucosa moist without lesions. Neck: trachea midline, no mass, symmetric, no thyromegaly or nodules, no adenopathy Respiratory: lungs CTA, respirations non labored. Cardiovascular: regular rate and rhythm, no murmur, no pedal edema or varicosities. Gastrointestinal: obese, soft, non distended, no tenderness, no masses, no palpable hernias, diastasis recti no, no hepatosplenomegaly; normal bs Lymphatic: no cervical adenopathy, no supraclavicular adenopathy. Musculoskeletal: normal gait, digits and nails without infection, nodes, cyanosis, clubbing. Skin: no rashes, no lesions, no ulcers, no subcutaneous nodules, induration. Psychiatric/Neuro: oriented to time, place, person, judgement normal, affect appropriate for age, insight intact, no focal deficits. Tests: labs reviewed,, review of old records completed , Discussed surgical options, risks, and possible complications with patient. Assessment/Plan 1. Positive fecal occult blood test (R19.5: Other fecal abnormalities) plan colonoscopy under anesthesia, informed consent obtained. Follow-up No qualifying data available Problem List/Past Medical History Ongoing Adrenal gland hematoma BMI 36.0-36.9,adult Class 3 obesity Former smoker GERD (gastroesophageal reflux disease) History of recurrent UTI (urinary tract infection) Hyperlipidemia Hypertension Mass of parotid gland Migraines Occult blood positive stool Other urethral stricture, female Positive fecal occult blood test Urinary frequency Uterine leiomyoma Vitamin D deficiency Historical No qualifying data Procedure/Surgical History Cystourethroscopy with dilation of urethral stricture (09/23/2013), Cystourethroscopy with dilationof urethral stricture (04/29/2003), Rotator cuff repair, Superficial parotidectomy, Tubal ligation. Medications aspirin 325 mg Oral EC Tab, 325 mg= 1 tab(s), Oral, Daily ferrous sulfate 325 mg Tab, 325 mg= 1 tab(s), Oral, Daily isosorbide mononitrate 30 mg ER Tab, 30 mg= 1 tab(s), Oral, qAM meloxicam 15 mg Tab, 15 mg= 1 tab(s), Oral, Daily Metoprolol tartrate 50 mg Tab, 50 mg= 1 tab(s), Oral, BID nitroglycerin 0.4 mg sublingual Tab, 0.4 mg= 1 tab(s), SubLingual, q5min, PRN simvastatin 20 mg Tab, 20 mg= 1 tab(s), Oral, qPM Allergies No Known Allergies No Known Medication Allergies Social History Alcohol - Denies Alcohol Use, 04/30/2024 Substance Abuse - Denies Substance Abuse, 04/30/2024 Tobacco Former smoker, quit more than 30 days ago Tobacco Use:. Never Smokeless Tobacco Use:. Cigarettes, 1per day. Started age 20.0 Years. Stopped age 39 Years., 04/30/2024 Family History Arthritis: Grandparent. Hyperlipidemia: Mother. Hypertension: Mother. Leukemia: Grandparent. Migraine: Mother. Primary malignant neoplasm of lung: Father. Immunizations V (more content not included)...[facility] CenterComment [facility] above: Result Comment: Electronically Signed By: GEORGE BATES, Steve Clinton\.lloyd\Date and Time Signed: 04/30/24 15:44 [id number] Telephone encounter Note* Telephone Encounter - Pia Car - 04/30/2024 9:37 AM EST ZURDO/Gelsyn 3 09/06/23, lxr 06/26/23 Asking to have visco authorized and try to have before end of year. See for appt first? Or try to auth? ([facility] pt) [facility] [id number] History of Present illness Narrative* Fito Hill MD - 03/31/2024 1:30 PM EDT Images from the original note were not included. [facility] [address] [facility] [id number] Subjective: Patient ID: Michelle Rodriguez is a 64 y.o. female. Chief Complaint Chief Complaint Patient presents with Circulatory Problem New patient- testing done, pt c/o pain in mid lower abdominal area. History of Present Illness: This is a 64 year old female with past medical history significant for hypertension, GERD, and hyperlipidemia. She states for the last six months or so she has been dealing with pelvic pain. She states pain is located in the suprapubic area of the abdomen. She states pain is present all the time, nothing makes it better. She does notice it is worse if she is standing. She states it feels like a dull, throbbing pain but occasionally is sharp/stabbing. She states it seems to worsen when she needsto have a bowel movement and then will lessen if she does have a bowel movement. She denies edema in the legs. She saw a Urologist in [place] and was told she had a vaginal infection and was treated with antibiotics which initially helped symptoms, however symptoms have recurred. She had a CT scanwhich showed fibroids in the uterus, degenerative changes in the pubic symphysis, lumbar spine, andfemoroacetabular joints. She was noted to have dilation of the right gonadal vein and was referred to our team for further work-up. Patient Active Problem List Diagnosis Pelvic pain Current Outpatient Medications: aspirin 325 mg tablet, Take 1 tablet (325 mg total) by mouth., Disp: , Rfl: ibuprofen (MOTRIN) 800 mg tablet, TAKE 1 TABLET BY MOUTH EVERY 8 HOURS NEEDED WITH FOOD OR MILK,Disp: , Rfl: iron, carbonyl (IRON CHEWS) 15 mg tablet,chewable, Chew and swallow., Disp: , Rfl: metoprolol tartrate (LOPRESSOR) 50 mg tablet, 1 tablet (50 mg total)., Disp: , Rfl: pantoprazole (PROTONIX) 40 mg EC tablet, Take 1 tablet (40 mg total) by mouth., Disp: , Rfl: simvastatin (ZOCOR) 20 mg tablet, Take 1 tablet (20 mg total) by mouth., Disp: , Rfl: Past Medical History: Diagnosis Date Anemia H/O hyperlipidemia HTN (hypertension) History reviewed. No pertinent surgical history. No family history on file. Social History Socioeconomic History Marital status: Spouse name: Not on file Number of children: Not on file Years of education: Not on file Highest education level: Not on file Occupational History Not on file Tobacco Use Smoking status: Former Types: Cigarettes Smokeless tobacco: Never Substance and Sexual Activity Alcohol use: Not on file Drug use: Not on file Sexual activity: Not on file Other Topics Concern Not on file Social History Narrative Not on file Social Determinants of Health Financial Resource Strain: Low Risk (11/29/2023) Received from [facility] Overall Financial Resource Strain (CARDIA) Difficulty of Paying Living Expenses: Not hard at all Food Insecurity: No Food Insecurity (11/29/2023) Received from [facility] Hunger Vital Sign Worried About Running Out of Food in the Last Year: Never true Ran Out of Food in the Last Year: Never true Transportation Needs: Unknown (11/29/2023) Received from [facility] PRAPARE - Transportation Lack of Transportation (Medical): Not on file Lack of Transportation (Non-Medical): No Physical Activity: Not on file Stress: Not on file Social Connections: Not on file Interpersonal Safety: Not on file Housing Instability: Unknown (11/29/2023) Received from [facility] Housing Stability Vital Sign Unable to Pay for Housing in the Last Year: Not on file Number of Places Lived in the Last Year: Not on file Unstable Housing in the Last Year: No No Known Allergies The following portions of the patient's history were reviewed and updated as appropriate: allergies, current medications, past family history, past medical history, past social history, past surgicalhistory and problem list. Review of Systems: Review of Systems Constitutional: Negative. HENT: Negative. Eyes: Negative. Respiratory: Negative. Cardiovascular: Negative. Negative for leg swelling. Gastrointestinal: Negative. Endocrine: Negative. Genitourinary: Positive for pelvic pain. Musculoskeletal: Negative. Skin: Negative. Allergic/Immunologic: Negative. Neurological: Negative. Hematological: Negative. Psychiatric/Behavioral: Negative. Objective: Vitals BP 145/90 Pulse 80 Wt 96.6 kg (213 lb) Physical Exam Physical Exam Vitals and nursing note reviewed. Constitutional: Appearance: She is well-developed. HENT: Head: Normocephalic and atraumatic. Nose: Nose normal. Mouth/Throat: Mouth: Mucous membranes are moist. Pharynx: Oropharynx is clear. Eyes: Conjunctiva/sclera: Conjunctivae normal. Cardiovascular: Rate and Rhythm: Normal rate and regular rhythm. Pulmonary: Effort: Pulmonary effort is normal. Abdominal: Palpations: Abdomen is soft. Musculoskeletal: General: Normal range of motion. Cervical back: Normal range of motion. Skin: General: Skin is warm and dry. Capillary Refill: Capillary refill takes less than 2 seconds. Neurological: Mental Status: She is alert and oriented to person, place, and time. Studies Reviewed I reviewed images from her CT scan performed in December but there was no report available. I reviewed the report from CT scan performed in November but images were not available No results found for: DDIMER No results found for: GLU , CALCIUM , SODIUM , K , CO2 , BUN , CREATININE No results found for: WBC , HGB , HCT , MCV , PLT Assesment: Michelle was seen today for circulatory problem. Diagnoses and all orders for this visit: Pelvic congestion syndrome - [facility] [place], [place] Plan: Plan I was able to review images from the patient's CT scan in December but there was no report available. By my read these images suggest dilation of the left gonadal vein but do not show evidence of Nutcracker or May-Thurner pathology. The patient had a CT scan in November where it was dictated that her rightgonadal vein was enlarged however I am unable to view images from this scan. She was noted to have fibroids and degenerative changes in the pubic symphysis as well Given her symptoms, other pathologies present, and irregularities in her CT scan, I will order an MR venogram to evaluate for pelvic congestion. I explained to her there are multiple possible causes of her low abdominal/pelvic discomfort that we will have to sort through. In the interim she was instructed to elevate the legs frequently during the day and to try to pay attention to her symptoms tosee if they worsen with standing or at the end of the day. She will return to the office after testing and we will decide on the next option for intervention. This note was created with the assistance of a speech recognition program. While intending to generate a timely document that accurately reflects the content of the visit, no guarantee can be provided that every grammatical or spelling mistake has been or will be identified or corrected. Thank you for your understanding. Fito Hill MD documented [facility] encounter[facility] Miscellaneous Notes* Telephone Encounter - Kathe An MA - 02/25/2024 1:59 PM EDT I called referring physician, Dr Jose Baldwin's office and spoke with Sabine and told her that patient did not show for ANALYTICAL TECH in [place] with Dr Hill documented in this encounterOhio[facility]24 Telephone encounter Note* Telephone Encounter - Kathe An MA - 02/25/2024 1:59 PM EDT I called referring physician, Dr Jose Baldwin's office and spoke with Sabine and told her that patient did not show for ANALYTICAL TECH in [place] with Dr Hill [facility]05-07[facility]24 Hospital Discharge instructions Patient Education 10/23/2023 16:23:28 Abdominal Pain, [...] Follow these instructions at home: Medicines Take pfce-aqc-rjbmfbo and prescription medicines only as told by [...] Watch your condition for any changes. Take fzek-wrf-fpdwfqi and prescription medicines only as told by [...] provider. Document Revised: 07/23/2020 Document Reviewed: 10/13/2019 [employer] Patient Education 2022 [employer] Follow Up Care 10/15/2023 10:31:47 With:AURA CROUCH, RAMONA Schneider, URL Address: [address] [place] [address] [phone] When: Unknown [facility] 05-07-2024 Evaluation + Plan note Diagnostic Tests Pending * Gynecological Culture 10/23/23 [facility]06-16-2022 NotePROCEDURE: XR FOOT RT MIN 3 VIEWS HISTORY: Pain in right foot ; acute second metatarsal pain since twisting injury 4 days ago COMPARISON: None. FINDINGS: BONES:No fracture, acute abnormality, or significant arthropathy. SOFT TISSUES:No visible soft tissue swelling. EFFUSION:None visible. OTHER: Negative. IMPRESSION: 1. No acute bone abnormality. 2. Minimal degenerative changes. Electronically authenticated by: ANOOP FELIX Date: 2021-12-01 11:20[facility] [place] [facility] No data available for this section [facility] evaluation + Plan note Future Appointments Appointment Date:05/12/2024 08:00:00 AM Scheduled Provider: Location:[facility] Appointment Type:Surgery FT [facility] [place] Evaluation + Plan note Future Appointments Appointment Date:11/17/2024 12:30:00 PM Scheduled Provider: Location:[facility] Appointment Type:Surgery FT [facility] Evaluation note* Diagnosis Bilateral primary osteoarthritis of knee- Primary documented in this encounter [facility]* Diagnosis Bilateral primary osteoarthritis of knee- Primary documented in this encounter [facility] HealthcareEvaluation note* Diagnosis Bilateral primary osteoarthritis of knee- Primary documented in this encounter [facility] HealthcareEvaluation note* Diagnosis Pelvic pain- Primary Pelvic congestion syndrome [facility] Diagnosis Pre-op testing- Primary Unspecified pre-operative examination Bilateral primary osteoarthritis of knee documented in this encounter [facility] HealthcareEvaluation note* Diagnosis Primary osteoarthritis of right knee- Primary documented in this encounter [facility] HealthcareEvaluation note* Diagnosis Primary osteoarthritis of right knee- Primary Acute postoperative pain of right knee Status post right knee replacement documented in this encounter [facility] HealthcareEvaluation note* Diagnosis Primary osteoarthritis of right knee- Primary Acute postoperative pain of right knee Status post right knee replacement documented in this encounter [facility] HealthcareEvaluation note* Diagnosis Primary osteoarthritis of right knee- Primary Acute postoperative pain of right knee Status post right knee replacement [facility] No data available for this section [facility] HospitalInstructionsNot on filedocumented in this encounter [facility] System[facility]ructionsNot on filedocumented in this encounter [facility] No data available for this section [facility] Brii reason for visit Narrative* Consultation (Routine) - Closed Specialty Diagnoses / Procedures Referred By Contdarci t Referred To Contact Physical Therapy Diagnoses Primary osteoarthritis of right knee Procedures CO OFFICE/OUTPATIENT NEW HIGH MDM 60 MINUTES Steve Duarte, DO [address] [place] [address] Phone: tel: fax: Madison Pearson T, PT [address] [facility] [address] [place] [address] Phone: tel: fax: Referral ID Status Reason Start Date Expiration Date V isits Requested Visits Authorized [id number] Closed Specialty Services Required 11/12/2024 04/28/2025 60 60 [facility] Healthcare Summary Purpose Family History No Family History Records Found No data available [...] Directives Records FoundNo Advanced Directives Records Found Reason for Referral Specialty Diagnoses / Procedures Referred By Mahin t Referred To Contact Radiology Diagnoses Pelvic congestion syndrome Pelvic pain Procedures MRV abdomen pelvic congestion with and without contrast Fito Hill MD [address] [facility] [address] [place] [address] [address] Referral ID Status Reason Start Date Expiration Date V isits Requested Visits Authorized [id number] Pending Review 03/31/2024 03/31/2025 1 1 Specialty Diagnoses / Procedures Referred By Contac t Referred To Contact Radiology Diagnoses Pelvic congestion syndrome Pelvic pain Procedures MRV pelvis pelvic congestion with and without contrast Fito Hill MD [address] [facility] [address] [place] [address] [address] Referral ID Status Reason Start Date Expiration Date V isits Requested Visits Authorized [id number] Pending Review 03/31/2024 03/31/2025 1 1 Additional Source Comments INFORMATION SOURCE (unrecogn ized section and content) DATE CREATED AUTHOR 10/25/[address] [facility] DATE CREATED AUTHOR AUTHOR'S ORGANIZ ATION 12/07/2023 [facility] DATE CREATED AUTHOR AUTHOR'S ORGANIZ ATION 03/18/2024 [facility] DATE CREATED AUTHOR AUTHOR'S ORGANIZ ATION 04/02/2024 [facility] DATE CREATED AUTHOR AUTHOR'S ORGANIZ ATION 11/02/2024 [facility] DATE CREATED AUTHOR AUTHOR'S ORGANIZ ATION 11/17/2024 [facility] DATE CREATED AUTHOR AUTHOR'S ORGANIZ ATION 11/20/2024 [facility] DATE CREATED AUTHOR AUTHOR'S ORGANIZ ATION 11/22/2024 [place] DATE CREATED AUTHOR AUTHOR'S ORGANIZ ATION 12/07/2024 [facility] EPIC Patient Care team informatio n (unrecognized section and content) Non Destructive Testing Technician Relationship Specialty Start Date End Date Maggie Baldwin MD [address] [place] [address] PCP - General Family Medicine 06/25/23 Non Destructive Testing Technician Relationship Specialty Start Date End Date Maggie Baldwin MD [address] [facility] [place] [address] PCP - General Family Medicine 06/25/23 Non Destructive Testing Technician Relationship Specialty Start Date End Date Maggie Baldwin MD [address] [facility] [place] [address] PCP - General Family Medicine 06/25/23 Non Destructive Testing Technician Relationship Specialty Start Date End Date Maggie Baldwin MD [address] [facility] [place] [address] PCP - General Family Medicine 06/25/23 Non Destructive Testing Technician Relationship Specialty Start Date End Date Maggie Baldwin MD [address] [facility] [place] [address] PCP - General Family Medicine 06/25/23 Non Destructive Testing Technician Relationship Specialty Start Date End Date Maggie Baldwin MD [address] [facility] [place] [address] PCP - General Family Medicine 06/25/23 Non Destructive Testing Technician Relationship Specialty Start Date End Date Maggie Baldwin MD [address] [place] [facility] [place] [address] PCP - General 09/02/13 Non Destructive Testing Technician Relationship Specialty Start Date End Date Maggie Baldwin MD [address] [place] [facility] [place] [address] PCP - General 09/02/13 Non Destructive Testing Technician Relationship Specialty Start Date End Date Maggie Baldwin MD [address] [place] [facility] [place] [address] PCP - General 09/02/13 Non Destructive Testing Technician Relationship Specialty Start Date End Date Maggie Baldwin MD [address] [facility] [place] [address] PCP - General Family Medicine 10/30/24 Non Destructive Testing Technician Relationship Specialty Start Date End Date Maggie Baldwin MD [address] [facility] [place] [address] PCP - General Family Medicine 10/30/24 Non Destructive Testing Technician Relationship Specialty Start Date End Date Maggie Baldwin MD [address] [facility] [place] [address] PCP - General Family Medicine 10/30/24 Non Destructive Testing Technician Relationship Specialty Start Date End Date Maggie Baldwin MD [address] [facility] [place] [address] PCP - General Family Medicine 10/30/24 Non Destructive Testing Technician Relationship Specialty Start Date End Date Maggie Baldwin MD [address] [facility] [place] [address] PCP - General Family Medicine 10/30/24 Non Destructive Testing Technician Relationship Specialty Start Date End Date Maggie Baldwin MD [address] [facility] [place] [address] PCP - General Family Medicine 10/30/24 Non Destructive Testing Technician Relationship Specialty Start Date End Date Maggie Baldwin MD [address] [facility] [place] [id number] PCP - General Family Medicine 10/30/24 Reason for Visit (unrecogniz ed section and content) Reason Comments Pain Reason Comments Follow-up Reason Comments Circulatory Problem New patient- testing done, pt c/o pain in mid lower abdominal area. Specialty Diagnoses / Procedures Referred By Contac t Referred To Contact Vascular Surgery Diagnoses Pelvic congestion syndrome Maggie Baldwin MD [address] [place] [address] [facility] [address] [place] [address] Referral ID Status Reason Start Date Expiration Date Visits Requested Visits Authorized [id number] Pending Review Specialty Services Required 12/25/2023 12/24/2024 1 1 Reason Comments Follow-up FOR RECORDS PERTAINING TO PATIENTS WHO ARE [...] BE BASED ON THE PRIMARY CLINICAL RECORDS. [facility]approved [facility]. provides no warranty or guarantee of the accuracy or completeness of information in this document.
== END 2024-12-09 09:25 | disposition home or self-care (01) ==
LOC: MAMMO 09:24
PROVIDERS: PCP Family Medicine; Visit Provider Family Medicine
DX: Z12.31 Encounter for screening mammogram for malignant neoplasm of breast (principal); Z80.6 Family history of leukemia; Z80.42 Family history of malignant neoplasm of prostate; Z80.8 Family history of malignant neoplasm of other organs or systems
CPT/HCPCS: 77063; 77067

== ENCOUNTER 2025-01-13 09:24 | Outpatient (OUT) | payer OTHER, SELFPAY ==
[2025-01-13 10:06] LABS: Hematocrit 40.5 % (36.0-48.0); Hemoglobin 13.3 g/dL (12.0-16.0); Immature Granulocytes Abs Auto 0.01 10^3/uL (0.00-0.03); Immature Granulocytes Pct Auto 0.2 % (0.0-0.5); Lymphocytes Absolute Auto 1.5 10^3/uL (1.2-3.8); Mean Corpuscular HGB Conc 32.8 g/dL (29.9-35.2); Mean Corpuscular Hemoglobin 30.6 pg (26.7-34.0); Mean Corpuscular Volume 93.1 fL (81.0-99.0); Platelet Count 279 10^3/uL (150-450); Red Blood Count 4.35 10^6/uL (4.20-5.40); White Blood Count 5.2 10^3/uL (4.0-11.0)
[2025-01-13 11:03] LABS: Alanine Aminotransferase 51 U/L (14-59); Albumin Globulin Ratio 1.2; Albumin Level 4.3 g/dL (3.4-5.0); Alkaline Phosphatase 112 U/L (46-116); Anion Gap 13.1; Aspartate Amino Transferase 24 U/L (15-37); Blood Urea Nitrogen 16.0 mg/dL (7.0-18.0); Calcium 9.7 mg/dL (8.5-10.1); Carbon Dioxide 29.1 mmol/L (21.0-32.0); Chloride 102 mmol/L (98-107); Cholesterol 185 mg/dL (<=200); Estimated GFR (African America >60 (>=60 mL/min/1.73m^2); Estimated GFR (Non-African Ame >60 (>=60 mL/min/1.73m^2); Free T3 2.19 pg/mL (2.18-3.98); Globulin 3.7 g/dL; Glucose 102 mg/dL (74-106); HDL Cholesterol 52 mg/dL (40-60); Potassium 4.2 mmol/L (3.5-5.1); Sodium 140 mmol/L (136-145); Thyroid Stimulating Hormone 3.494 uIU/mL (0.358-3.740); Total Protein 8.0 g/dL (6.4-8.2); Triglycerides 129 mg/dL (<=150); VLDL CHOLESTEROL 25.8 mg/dL
== END 2025-01-13 09:25 | disposition home or self-care (01) ==
LOC: LAB 09:30
PROVIDERS: PCP Family Medicine; Visit Provider Family Medicine
DX: Z00.00 Encounter for general adult medical examination without abnormal findings (principal); Z12.11 Encounter for screening for malignant neoplasm of colon
CPT/HCPCS: 36415; 80053; 80061; 83036; 84436; 84443; 84481; 85025

== ENCOUNTER 2025-04-08 11:18 | Outpatient (OUT) | payer OTHER, SELFPAY ==
--- OUTSIDE RECORDS SUMMARY | 2025-04-08 11:26 | XMS_ITS | Clinical Summary ---
Author Organization [facility] Address [address] [place], [place] [address] Care Team Providers Care Drum Loader And Unloader Name Role Phone Gus Herr MD Primary Care Provider [phone] Allergies No known active allergies Medications MedicationSigDispense QuantityRefillsLast FilledStart DateEnd DateStatus Dexlansoprazole (DEXILANT) 60 mg CpDM Take by mouth.Active Active Problems ProblemNoted DateDiagnosed DateParotid mass08/07/2017 Overview (08/07/2017): Added automatically from request for surgery [id number] Immunizations ImmunizationAdministration DatesNext Dueinfluenza (IIV3) vaccine, trivalent (AFLURIA, FLULAVAL, FLUVIRIN, FLUZONE)07/03/2017 Family History Medical HistoryRelationCommentsCancerMaternal GrandmotherHeart diseaseMother CancerPaternal GrandfatherRelationStatusCommentsMaternal GrandmotherMother Paternal Grandfather Social History Tobacco UseTypesPacks/DayYears UsedDateSmoking Tobacco: SixwkxLvbhhffbwz1020154 - 2000Smokeless Tobacco: Never Tobacco Cessation:Counseling Given: No Alcohol UseStandard Drinks/WeekCommentsYes0 (1 standard drink = 0.6 oz pure alcohol)pt states drinks on the weekendsArea Deprivation IndexAnswerDate RecordedNational Score (1-100), lower number is lower riskNot on file05/27/2020 State Score (1-10), lower number is lower riskNot on file05/27/2020Data from: https://www.neighborhoodatlas.medicine.[facility].edu/. 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 on file Not on file Last Filed Vital Signs Vital SignReadingTime TakenCommentsBlood Hnprjktg570/60009/01/2017 10:43 AM EDT Mcobv2130/17/2018 10:43 AM QSVXaefacqummh53 ??C (98.6 ??F)09/01/2017 10:43 AM EDTRespiratory Ddqm452309/01/2017 10:43 AM EDTOxygen Cclilnottc15%09/01/2017 10:43 AM EDTInhaled Oxygen Concentration--Jqeoai01.9 kg (185 lb)08/31/2017 6:13 AM EDT Xsfffh748.1 cm (5' 5 )08/31/2017 6:13 AM EDTBody Mass Index30.7908/31/2017 6:13 AM EDT Plan of Treatment Health MaintenanceDue DateLast DoneCommentsAnxiety Bqxwelomp44/01/1978Depression Qltkkiemo57/01/1978HIV Bqyrvbauk06/01/1978Hepatitis C Whyekdriy37/01/1978 DTaP,Tdap,Td Vaccine (1 - Tdap)02/16/1979Mammogram Onmfnvkos13/01/2000CT Btjiydnmdzrx31/01/2005Cologuard (FIT-DNA)02/16/20051931Rytifyslist88/01/2005 Colorectal Cancer Lkgldzgyk68/01/2005Diabetes Kqokqgeqj52/01/2005Fecal Occult Blood02/16/2005Lipid Lssfzbjdv15/01/7088Dpefqnblwrert15/01/2005Pneumococcal Vaccine: 50+ (1 of 1 - PCV)02/16/2010Shingrix Vaccine (1 of 2)02/16/2010dvance Directive Fvqxumtbnj41/01/2025Bone Density Leegkfyhx69/01/2025Covid-19 Vaccine (1 - 2024- season)2025Influenza Vaccine (#1)501/RSV Vaccine (1 - 1-dose 75+ series)02/16/2035 Insurance Care Teams Team MemberRelationshipSpecialtyStart DateEnd Date Gus Herr MD PCP - GeneralFamily Qlmwehcb50/1/16
--- OUTSIDE RECORDS SUMMARY | 2025-04-08 11:27 | XMS_ITS | Clinical Summary ---
Author Organization [facility] [id number] [address] [place] [address] Care Team Providers Care Digital Director Name Role Phone Unavailable Primary Care Provider Unavailabl e Allergies No known active allergies Medications MedicationSigDispense QuantityRefillsLast FilledStart DateEnd DateStatus aspirin 325 mg tablet Take 1 tablet (325 mg total) by mouth.Active ibuprofen (MOTRIN) 800 mg tablet TAKE 1 TABLET BY MOUTH EVERY 8 HOURS NEEDED WITH FOOD OR MILK06/28/2023ctive iron, carbonyl (IRON CHEWS) 15 mg tablet,chewable Chew and swallow.10/23/2023ctive metoprolol tartrate (LOPRESSOR) 50 mg tablet 1 tablet (50 mg total).10/23/2023ctive pantoprazole (PROTONIX) 40 mg EC tablet Take 1 tablet (40 mg total) by mouth.Active simvastatin (ZOCOR) 20 mg tablet Take 1 tablet (20 mg total) by mouth.Active Active Problems ProblemNoted DateDiagnosed DatePelvic pain02/24/2024 Family History Medical HistoryRelationNameCommentsCancerFatherHeart diseaseMotherRelationName StatusCommentsFatherAliveMotherAlive Social History Tobacco UseTypesPacks/DayYears UsedDateSmoking Tobacco: FormerCigarettes Smokeless Tobacco: NeverChildcareAnswerDate NjxaobzpMhwvmcvgwAsrjnpf61/12/2019 EmploymentAnswerDate ZstbssbnSilnnzdgdzTtrxjeb77/12/2019CommentsNoSex and Gender InformationValueDate RecordedSex Assigned at BirthNot on fileLegal VrqLcuhdw39/06/2015 11:44 AM EDTGender IdentityNot on fileSexual OrientationNot on file Last Filed Vital Signs Vital SignReadingTime TakenCommentsBlood Nnbyualh815/9010/ 1:37 PM EDT Ppsbr617703/31/2024 1:37 PM EDTTemperature--Respiratory Rate--Oxygen Saturation-- Inhaled Oxygen Concentration--Aprkvs48.6 kg (213 lb)03/31/2024 1:37 PM EDTHeight --Body Mass Index-- Plan of Treatment Health MaintenanceDue DateLast DoneCommentsDepression Tflxlprmd83/01/1972Adult BMI Pdyznqmwg41/01/1978DTaP,Tdap and Td Vaccines (1 - Tdap)02/16/1979Zoster (Shingles) Vaccine (1 of 2)02/16/2010COVID-19 Vaccine ( - season) , 05/17/2022, 04/22/2021, Additional history existsFall Risk Ckswpvpdp23/01/2025Influenza Nzkwaia45, 03/30/2022, 04/11/2021, Additional history existsTobacco Tcpxuhiaf39/4Pap KetfoZreubqheqvna86/13/2024, 11/29/2023 Medical Devices Not on file Insurance
--- OUTSIDE RECORDS SUMMARY | 2025-04-08 11:27 | XMS_ITS | Clinical Summary ---
Author Organization [facility] Healthcare Address [address] [place] [address] Care Team Providers Care Paper Box Maker Name Role Phone Gus Herr MD Primary Care Provider [phone] Allergies No known active allergies Medications MedicationSigDispense QuantityRefillsLast FilledStart DateEnd DateStatus metoprolol tartrate (Lopressor) 50 MG tablet Take 50 mg by mouthActive nitroglycerin (Nitrostat) 0.[address] 0.4 mg under the zdjtqi1004/26/2023ctive simvastatin (Zocor) 20 MG tablet Take 20 mg by mouthActive pantoprazole (ProtoNix) 40 MG EC tablet Take 40 mg by mouthActive ibuprofen 800 MG tablet 06/28/2023ctive Carbonyl Iron 15 MG chewable tablet Chew10/23/2023ctive isosorbide mononitrate ER (Imdur) 30 MG 24 hr tablet Take 30 mg by mouth04/08/2024ctive meloxicam (Mobic) 15 MG tablet Indications:Bilateral primary osteoarthritis of kneeTake 1 tablet (15 mg) by mouth Daily 30 tablet 11010/20//ctive Ferrous Sulfate (iron) 325 (65 Fe) MG tablet 1 (one) time each day at the same time5Active cephalexin (Keflex) 500 MG capsule Indications:S/P total knee arthroplasty, rightTake two caps evening prior to appointment, take two caps one hour prior to appointment 4 capsule 5Active oxyCODONE-acetaminophen (Percocet) 5-325 MG tablet See Instructions, 50 tab(s), Refill(s) 0, Take one to two oral every 4 hours as needed for surgicalpain., [id number], 166.5, cm, 11/03/24 7:43:00 EDT, Height/Length Dosing, 100.6, kg, 11/03/24 7:43:00 EDT, Weight Hyblgn7311/11/2024 03/19/2025Discontinued(Therapy completed) Active Problems ProblemNoted DateDiagnosed DatePrimary osteoarthritis of right knee11/19/2024 Acute postoperative pain of right knee11/19/2024Status post right knee qvsbdvqgjyv47/04/2025 Encounters DateTypeDepartmentCare WwnkEpwrcwkqzwc80/02/2025 8:30 AM EDTOffice Visit [facility] [address] [place] [phone] Mack Delaney, S/P total knee arthroplasty, right (Primary Dx)03/19/2025 8:00 AM EDTAncillary Procedure [facility] [address] [place] [phone] 03/19/20250405Wkuejl27/09/2025Telephone [facility] [address] [place] [address] Mack Delaney, Dental Appt Abx Zxrfqir7502/05/2025 9:00 AM EDTTreatment [facility] [address] [facility] [address] [place] [id number] Kelbley, Katherine, SCALEMAKER Primary osteoarthritis of right knee (Primary Dx); Acute postoperative pain of right knee; Status post right knee hrimexrmeed75/21/5464Gfweqh63/19/2025 7:30 AM EDT Treatment [facility] [address] [place] [address] [place] [phone] Kelbley, Katherine, SCALEMAKER Primary osteoarthritis of right knee (Primary Dx); Acute postoperative pain of right knee; Status post right knee ofalvbffxhh41/19/2025amboo flowsheet [facility] [address] [place] [address] [place] [id number] Kelbley, Katherine, SCALEMAKER 08/19/5615Ealhib90/13/2025 7:30 AM EDTTreatment [facility] [address] [facility] [address] [place] [address] Katherine Sanchez, SCALEMAKER Primary osteoarthritis of right knee (Primary Dx); Acute postoperative pain of right knee; Status post right knee mlpsvedjlnt98/13/2025amboo flowsheet [facility] [address] [place] [address] [place] [address] Katherine Sanchez, SCALEMAKER 01/28/20255003Dxtxhm32/11/2025 7:30 AM EDTTreatment [facility] [address] [facility] [address] [place] [address] Katherine Sanchez, SCALEMAKER Primary osteoarthritis of right knee (Primary Dx); Acute postoperative pain of right knee; Status post right knee exekfxzzcln44/11/2025amboo flowsheet [facility] [address] [facility] [address] [place] [address] Katherine Sanchez, SCALEMAKER 01/26/20252639Qnedvl44/06/2025 4:00 PM EDTTreatment [facility] [address] [facility] [address] [place] [address] Steff Román, SCALEMAKER Primary osteoarthritis of right knee (Primary Dx); Acute postoperative pain of right knee; Status post right knee replacement; Aftercare following right knee joint replacement yvfaecc4901/21/2025amboo flowsheet [facility] [address] [facility] [address] [place] [address] Steff Román, SCALEMAKER 01/21/20254242Chqbld47/04/2025 1:30 PM EDTTreatment [facility] [address] [facility] [address] [place] [address] Katherine Sanchez, SCALEMAKER Primary osteoarthritis of right knee (Primary Dx); Acute postoperative pain of right knee; Status post right knee replacement; Aftercare following right knee joint replacement pubyqjg2501/19/2025amboo flowsheet [facility] [address] [place] [address] [place] [address] Kelbley, Katherine, SCALEMAKER 01/19/20257967Qroilp76/30/2025 10:00 AM EDTTreatment [facility] [address] [place] [address] [place] [address] Kelbley, Katherine, SCALEMAKER Primary osteoarthritis of right knee (Primary Dx); Acute postoperative pain of right knee; Status post right knee henvovlowmy11/30/2025amboo flowsheet [facility] [address] [place] [address] [place] [address] Kelbley, Katherine, SCALEMAKER 01/14/20259654Ghzifd28/28/2025 9:00 AM EDTTreatment [facility] [address] [place] [address] [place] [address] Kelbley, Katherine, SCALEMAKER Primary osteoarthritis of right knee (Primary Dx); Acute postoperative pain of right knee; Status post right knee pwxrunrdtld23/28/2025amboo flowsheet [facility] [address] [place] [address] [place] [address] Kelbley, Katherine, SCALEMAKER 01/12/20252775Atxuie84/24/2025 11:00 AM EDTTreatment [facility] [address] [place] [address] [place] [address] Kelbley, Katherine, SCALEMAKER Primary osteoarthritis of right knee (Primary Dx); Acute postoperative pain of right knee; Status post right knee fqnsjefxmws75/24/2025amboo flowsheet [facility] [address] [place] [address] [place] [address] Kelbley, Katherine, SCALEMAKER 01/08/20258659Hrvzdq20/22/2025 11:00 AM EDTTreatment [facility] [address] [place] [address] [place] [address] Kelbley, Katherine, SCALEMAKER Primary osteoarthritis of right knee (Primary Dx); Acute postoperative pain of right knee; Status post right knee bveixeclise85/22/2025amboo flowsheet [facility] [address] [facility] [address] [place] [address] Katherine Sanchez, SCALEMAKER 01/06/2025Travelfrom Last 3 Months Social History Tobacco UseTypesPacks/DayYears UsedDateSmoking Tobacco: FormerCigarettesQuit: 2000Smokeless Tobacco: NeverCommentsUnknownSex and Gender Information ValueDate RecordedSex Assigned at BirthNot on fileLegal KonCjybuf32/15/2023 7:01 PM EDTGender IdentityNot on fileSexual OrientationNot on file Last Filed Vital Signs Vital SignReadingTime TakenCommentsBlood Pressure--Pulse--Xpkuuwyvlsb68.4 ??C (97.6 ??F)09/06/2023 1:15 PM EDTRespiratory Rate--Oxygen Saturation--Inhaled Oxygen Concentration--Pefcrd793 kg (223 lb)03/19/2025 8:40 AM AXANiukni278.1 cm (5' 5 )03/19/2025 8:40 AM EDTBody Mass Index37.111 8:40 AM EDT Plan of Treatment DateTypeDepartmentCare Team (Latest Contact Info)Pnezesdyusm79/02/2026 8:30 AM EDTOffice Visit [facility] [address] [place] [address] Mack Delaney, DO [address] [place] [address] Health MaintenanceDue DateLast DoneCommentsCT Fkdxoujzzbly1960FIT-DNA 1960FIT1960FOBT02/16/1157Kewmcnmlkvlpy1960Pneumococcal Vaccine: 65+ Years (1 of 1 - PCV)02/16/20108543Brwqasaiv92, 12/14/2015, 11/16/2014, Additional history existsInfluenza Vaccine (#1) , 03/30/2022, 04/11/2021, Additional history existsPap Smear 7011/29/2023, 11/29/2023ervical Cancer Sgtsyiazu73/13/2029HPV/Cotest , 11/29/20233814Cdzokvxumcl71olorectal Cancer Qjhtmznrq99/25/2034 Procedures Procedure NamePriorityDate/TimeAssociated DiagnosisCommentsXR KNEE 3 VIEWS RIGHT Aujgywn8003/19/2025 7:48 AM EDT S/P total knee arthroplasty, right from Last 3 Months Results * XR knee 3 views right (03/19/2025 7:48 AM EDT)Anatomical RegionLaterality ModalityLower Extremities, KneeRightRadiographic ImagingSpecimen (Source) Anatomical Location / LateralityCollection Method / VolumeCollection Time Received Time Narrative 03/23/2025 12:24 PM EDT Imaging Result: Xrays taken in the office today saved to the permanent record, AP, sunrise and lateral weightbearing films, show stable position and alignment of the right TKA prosthesis. ?? No sign of loosening, fracture or infection Authorizing ProviderResult TypeResult StatusMichael Lucy Delaney DOIMG XR PROCEDURES Final Result from Last 3 Months Insurance Care Teams Team MemberRelationshipSpecialtyStart DateEnd Date Gus Herr MD [address] [place] [address] [facility] - [facility]
--- OUTSIDE RECORDS SUMMARY | 2025-04-08 11:27 | XMS_ITS | CCD ---
Author Organization [facility] Care Team Providers Care Crown And Bridge Technician Name Role Phone HARSHILY ., DR SERRANO Consulting Unavailable HOY ., DR SERRANO Primary Care Unavailable HOY ., DR SERRANO Admitting Unavailable HOY ., DR SERRANO Attending Unavailable BRUNSWICK, DR KRISSY Gallardo Consulting Unavailable HOY ., DR SERRANO Admitting Unavailable HOY ., DR SERRANO Attending Unavailable HOY ., DR SERRANO Consulting Unavailable HOY ., DR SERRANO Primary Care Unavailable ROBBIEOMER, DR ANOOP Clinton Consulting Unavailable HOY ., [...] Attending Unavailable Maggie Baldwin Primary Care Physician [phone] MAGGIE BALDWIN Primary Care Unavailable EMILY YOO Referring Unavailabl e HOY, MAGGIE M Primary Care Unavailable GALA, THERESA E Referring Unavailable HOY, MAGGIE M Primary Care Unavailable GALA, THERESA E Referring Unavailable EMILY YOO Referring Unavailabl e HOY, MAGGIE M Primary Care Unavailable EMILY YOO Attending Unavailabl EMILY De Jesus Referring Unavailabl e HOY, MAGGIE M Primary Care Unavailable GALA, THERESA E Referring Unavailable HOY, MAGGIE M Primary Care Unavailable HOY, MAGGIE M Primary Care Unavailable GALA, THERESA E Referring Unavailable HOY, MAGGIE M Primary Care Unavailable EMILY YOO Attending Unavailabl e EMILY YOO Referring Unavailabl e HOY, MAGGIE M Primary Care Unavailable GALA, THERESA E Referring Unavailable GALA, THERESA E Referring Unavailable HOY, MAGGIE M Primary Care Unavailable HOY, MAGGIE M Primary Care Unavailable GALA, THERESA E Referring Unavailable HOY, MAGGIE M Primary Care Unavailable GALA, THERESA E Referring Unavailable FITO HILL Attending Unavailable HOY, MAGGIE M Referring Unavailable Maggie Baldwin MD Primary Care Provider [phone] Maggie Baldwin MD Primary Care Provider [phone] Unavailable Primary Care Provider UnavailMaggie Jaquez MD Primary Care Provider [phone] Steve Duarte Admitting Unavailable Duarte, Steve Ayala Attending Unavailable Duarte, Steve Ayala Referring Unavailable NILL, Steve R Attending Unavailable HoyMaggie Referring Unavailable NILL, Steve R Admitting Unavailable NILL, Steve R Attending Unavailable NILL, Steve R Referring Unavailable Duarte, Steve Ayala Referring Unavailable Duarte, Steve T Admitting Unavailable Duarte, Steve Ayala Attending Unavailable Duarte, Steve Ayala Attending Unavailable Duarte, Steve Ayala Referring Unavailable Duarte, Steve T Admitting Unavailable Duarte, Steve Ayala Referring Unavailable Duarte, Steve Ayala Attending Unavailable Duarte, Steve Ayala Admitting Unavailable DUARTE, STEVE Ayala Attending Unavailable DUARTE, STEVE Ayala Referring Unavailable BLACKSTON, MADISON Ayala Attending Unavailable DUARTE, STEVE Ayala Referring Unavailable BRISCOE, CIERRA Almanza Attending Unavailable DUARTE, STEVE T Referring Unavailable BRISCOE, CIERRA Almanza Attending Unavailable DUARTE, STEVE T Referring Unavailable BRISCOE, CIERRA Almanza Attending Unavailable DUARTE, STEVE T Referring Unavailable BRISCOE, CIERRA Almanza Attending Unavailable DUARTE, STEVE T Referring Unavailable BRISCOE, CIERRA Almanza Attending Unavailable DUARTE, STEVE Ayala Referring Unavailable BRISCOE, CIERRA Almanza Attending Unavailable DUARTE, STEVE T Referring Unavailable BRISCOE, CIERRA Almanza Attending Unavailable DUARTE, STEVE T Referring Unavailable BRISCOE, CIERRA Almanza Attending Unavailable DUARTE, STEVE Ayala Referring Unavailable NATIVIDAD GUDINO Attending Unavailable DUARTE, STEVE Ayala Referring Unavailable KATHERINE HUTCHISON Attending Unavailable DUARTE, STEVE Ayala Referring Unavailable SAUD PUGA Attending Unavailable DUARTE, STEVE T Referring Unavailable DUARTE, STEVE Ayala Referring Unavailable DUARTE, STEVE T Attending Unavailable DUARTE, STEVE T Referring Unavailable VIVIEN, SAUD Attending Unavailable DUARTE, STEVE T Referring Unavailable VIVIEN, SAUD Attending Unavailable DUARTE, STEVE T Referring Unavailable VIVIEN, SAUD Attending Unavailable DUARTE, STEVE T Referring Unavailable VIVIEN, SAUD Attending Unavailable DUARTE, STEVE T Referring Unavailable GUDINO, NATIVIDAD Attending Unavailable DUARTE, STEVE T Referring Unavailable KELBLEY, KATHERINE Attending Unavailable DUARTE, STEVE T Referring Unavailable KELBLEY, KATHERINE Attending Unavailable DUARTE, STEVE T Referring Unavailable GUDINO, NATIVIDAD Attending Unavailable DUARTE, STEVE T Referring Unavailable KELBLEY, KATHERINE Attending Unavailable DUARTE, STEVE T Referring Unavailable KELBLEY, KATHERINE Attending Unavailable DUARTE, STEVE T Referring Unavailable KELBLEY, KATHERINE Attending Unavailable DUARTE, STEVE T Referring Unavailable KELBLEY, KATHERINE Attending Unavailable DUARTE, STEVE T Referring Unavailable KELBLEY, KATHERINE Attending Unavailable DUARTE, STEVE T Referring Unavailable DUARTE, STEVE T Referring Unavailable DUARTE, STEVE T Attending Unavailable DUARTE, STEVE T Referring Unavailable DUARTE, STEVE T Attending Unavailable DUARTE, STEVE T Referring Unavailable DUARTE, STEVE T Attending Unavailable DUARTE, STEVE T Referring Unavailable MARIELY UGARTE Attending Unavailable DUARTE, STEVE T Referring Unavailable KELBLEY, KATHERINE Attending Unavailable DUARTE, TSEVE T Referring Unavailable KELBLEY, KATHERINE Attending Unavailable DUARTE, STEVE T Referring Unavailable KELBLEY, KATHERINE Attending Unavailable KELBLEY, KATHERINE Attending Unavailable DUARTE, STEVE T Referring Unavailable DUARTE, STEVE T Referring Unavailable DUARTE, STEVE T Attending Unavailable DUARTE, STEVE T Referring Unavailable Allergies Allergy ClassificationReported Allergen(s)Allergy TypeDate of OnsetReaction(s) Facility (3 sources)No Known Medication Allergies; Translations: [No Known Medication Allergies]Propensity to adverse reactions (disorder)[facility] Repository Medications Current Medications MedicationDrug Class(es)DatesSig (Normalized)Sig (Original)acetaminophen 325 mg / oxyCODONE hydrochloride 5 mg oral tablet (20 sources)Opioid AgonistStart: 11-26-2024 End: 50-91-3984vcwo 1-2 tablets by mouth every four hours for painoxyCODONE- acetaminophen (Percocet) 5-325 MG tablet Indications: Primary osteoarthritis of right knee Take 1-2 tablets by mouth every 4 (four) hours if needed for severe pain for up to 5 days 50 tablet 11/26/2024 12/01/2024 ActiveStart: 11-11-2024 End: 41-70-0002kfiMUDLGH-acetaminophen (Percocet) 5-325 MG tablet See Instructions, 50 tab(s), Refill(s) 0, Take one to two oral every 4 hours as needed for surgical pain., [facility]/pharmacy #[id number], 166.5, cm, 11/03/24 7:43:00 EDT, Height/Length Dosing, 100.6, kg, 11/03/24 7:43:00 EDT, Weight Dosing 11/11/2024 03/19/2025 Discontinued (Therapy completed)aspirin 325 mg delayed release oral tablet (20 sources)Platelet Aggregation Inhibitor, Nonsteroidal Anti-inflammatory Drug Start: 13-27-3557etzj 1 tablet by mouth once dailyaspirin 325 mg Oral EC Tab 325 mg = 1 tab(s), Oral, Daily, Refills(s) 0, Prophylaxis Start Date: 04/08/24 Status: Ordered Repeat number: 1Start: 56-46-8184jgsl 1 capsule by mouth every twenty-four hoursaspirin 81 mg oral capsule 81 mg = 1 cap(s), Oral, q24hr Start Date: 10/23/23 Status: OrderedStart: 57-29-5024Obsxfwc 81 MG CAPS Take 81 mg by mouth 10/23/2023 Active End: 64-53-4988egyi 1 tablet by mouth once dailyaspirin 325 MG tablet Take 325 mg by mouth 1 (one) time each day at the same time 10/30/2024 Discontinued (Therapy completed)cephalexin 500 mg oral capsule (2 sources)Cephalosporin AntibacterialStart: 83-97-1891yzlylarcqg (Keflex) 500 MG capsule Indications: S/P total knee arthroplasty, right Take two caps evening prior to appointment, take two caps one hour prior to appointment 4 capsule 2 02/24/2025 Activeclindamycin 20 mg/ml vaginal cream (4 sources)Lincosamide AntibacterialStart: 56-03-8714xwlxylfjjzq (CLEOCIN) 2 % vaginal cream Place vaginally nightly. For 3 nights. 1 each 12/17/2023 Active docusate sodium 100 mg oral capsule (1 source)Start: 99-24-1423aqlo 1 capsule by mouth twice dailyColace 100 mg Cap 100 mg = 1 cap(s), Oral, BID, # 20 cap(s), Refills(s) 0, Pharmacy: [facility]/pharmacy #[id number], 166.5, cm, 11/03/24 7:43:00 EDT, Height/Length Dosing, 100.6, kg, 11/03/24 7:43:00 EDT, WeightDosing Start Date: 11/11/24 Status: Ordered Quantity: 20.0 Unit: cap(s) Repeat number: 1ferrous sulfate 325 mg oral tablet (20 sources)Start: 49-70-6931Xnxefnm Sulfate (iron) 325 (65 Fe) MG tablet 1 (one) time each day at the same time 11/04/2024 Activeibuprofen 800 mg oral tablet (20 sources)Nonsteroidal Anti-inflammatory DrugStart: 32-08-4878syofwfekx 800 MG tablet 06/28/2023 Activeiron carbonyl 15 mg chewable tablet (20 sources)Start: 57-82-7499Kneaofdb Iron 15 MG chewable tablet Chew 10/23/2023 ActiveIron Chews (2 sources)Start: 47-03-0979ufcv 1 mg by mouth once dailyIron Chews mg, Oral, Daily Start Date: 10/23/23 Status: Vtbmwcn53 hr isosorbide mononitrate 30 mg extended release oral tablet (20 sources)Nitrate VasodilatorStart: 15-36-6959ghvqaokrmt mononitrate ER (Imdur) 30 MG 24 hr tablet Take 30 mg by mouth 04/08/2024 Activemeloxicam 15 mg oral tablet (20 sources)Nonsteroidal Anti-inflammatory DrugStart: 08-23-2023 End: 05-22-2315nnft 1 tablet by mouth once dailymeloxicam (Mobic) 15 MG tablet Indications: Bilateral primary osteoarthritis of knee Take 1 tablet (15 mg) by mouth Daily 30 tablet 11 10/20/2024 10/20/2025 Activemetoprolol tartrate 50 mg oral tablet (20 sources)beta-Adrenergic BlockerStart: 37-72-0645Worwduajpm tartrate 50 mg Tab 50 mg = 1 tab(s) Start Date: 10/23/23 Status: OrderedStart: 06-56-2368pnjs 1 tablet by mouth twice dailyMetoprolol tartrate 50 mg Tab 50 mg = 1 tab(s), Oral, BID, High blood pressure Start Date: 10/23/23 Status: Ordered Repeat number: 1 nitroglycerin 0.4 mg sublingual tablet (20 sources)Nitrate VasodilatorStart: 17-46-6129wobcdrqafifxs (Nitrostat) 0.[address] 0.4 mg under the tongue 04/26/2023 Activepantoprazole 40 mg delayed release oral tablet (20 sources)Proton Pump InhibitorStart: 77-77-2663rqel 1 tablet by mouth once dailyPantoprazole [address] Tab 40 mg = 1 tab(s), Oral, Daily Start Date: 10/31/24 Status: Ordered Repeat number: 1simvastatin 20 mg oral tablet (20 sources)HMG-CoA Reductase InhibitorStart: 64-77-7561vpac 1 tablet by mouth once daily in the eveningsimvastatin 20 mg Tab 20 mg = 1 tab(s), Oral, qPM, High cholesterol Start Date: 10/23/23 Status: Ordered Repeat number: 1 Completed/Discontinued Medications MedicationDrug Class(es)DatesSig (Normalized)Sig (Original)2 ml sodium hyaluronate 8.4 mg/ml prefilled syringe (16 sources)Start: 06-03-2024 End: 55-83-2918hbliwx hyaluronate (Gelsyn-3) injection 2 mLStart: 06-03-2024 End: mL, Intra-articular, Once PRN Procedure, Starting on Sun06/03/24 at 1345, For 1 doseStart: 05-27-2024 End: 52-86-2465lauglv hyaluronate (Gelsyn-3) injection 2 mLStart: 05-27-2024 End: mL, Intra-articular, Once PRN Procedure, Starting on Sun05/27/24 at 1355, For 1 doseStart: 05-20-2024 End: 91-80-7791jwaxhz hyaluronate (Gelsyn-3) injection 2 mLStart: 05-20-2024 End: mL, Intra-articular, Once PRN Procedure, Starting on Sun05/20/24 at 1425, For 1 dose Problems Active Problems Problem ClassificationProblemDateDocumented DateEpisodic/ChronicAbdominal pain (11 sources)Abdominal pain; Translations: [Unspecified abdominal pain]Onset: 25-31-1733HbpjyptbIlzend neoplasm of uterus (4 sources)Uterine mytbykueb38-66-1732CmdsvopfIrblsjcry of lipid metabolism (8 sources)Hyperlipidemia; Translations: [Hypercholesterolemia]62-44-5461Nppwcoj Diverticulosis and diverticulitis (1 source)Diverticula of intestine; Translations: [Diverticulosis of large intestine without perforation or abscess without bleeding]Onset: 05-12-2024 ChronicEsophageal disorders (4 sources)Gastroesophageal reflux -69-7961GazuadkPepntzrqi hypertension (6 sources)Hypertensive ehsxmbrj26-44-1735OusmxsiKyahiydcoaezu symptoms and ill- defined conditions (14 sources)Increased frequency of urination; Translations: [Frequency of micturition]Onset: 67-01-1356JqezisckYdreyzav; including migraine (4 sources)Ujrmvhgk01-48-4865ZbjdauvQvifbvcqbwp deficiencies (4 sources)Vitamin D featolxfsr04-72-1800LzbvfehNzuocmytwlhwxj (20 sources)Primary gonarthrosis, bilateral; Translations: [Bilateral primary osteoarthritis of knee]Onset: 735843-29-9446LwavsvfUoaeg aftercare (4 sources)Patient encounter status; Translations: [Aftercare following joint replacement surgery]48-78-5693TltfbkjAneqa bone disease and musculoskeletal deformities (2 sources)Disorder of bone, unspecified; Translations: [Disorder of bone, unspecified]Onset: 50-04-2886SmzyogfqOebnq connective tissue disease (20 sources)History of total knee arthroplasty; Translations: [Presence of right artificial knee joint]Onset: 254579-05-1564TwvzkhiDoesb diseases of bladder and urethra (7 sources)Urethral stricture; Translations: [Other urethral stricture, female] Onset: 21-69-8526LtxchdioHnjkb endocrine disorders (4 sources)Adrenal gland hematomaOnset: 880180-25-4327NgmqsprStbpq female genital disorders (1 source)Noninflammatory disorder of the vagina; Translations: [Other specified noninflammatory disorders ofvagina]Onset: 92-45-7126FmshvtsgMrbmg female genital disorders (2 sources)Vaginal vhbs92-91-6632MkxsofbyQyloh female genital disorders (1 source)Other specified conditions associated with female genital organs and menstrual cycle; Translations:[Other specified conditions associated with female genital organs and menstrual cycle]Onset: 14-46-2742JapeuwyvTvbmi gastrointestinal disorders (1 source)Abnormal feces; Translations: [Other fecal abnormalities]Onset: 87-00-9660VcnrhemqMlsac gastrointestinal disorders (8 sources)Occult blood in esgkye65-61-6262LjqmfijfUzccz nutritional; endocrine; and metabolic disorders (4 sources)Body mass index 30+ - tkuhufg73-45-5039YelmicrIwwov nutritional; endocrine; and metabolic disorders (4 sources)Obese class YWK49-75-0826YcqhjvbHgvfrthy codes; unclassified (1 source)Family history of leukemia; Translations: [FAMILY HISTORY OF LEUKEMIA] Onset: 73-99-6218NoiwcgpxZqstkrks codes; unclassified (1 source)Family history of malignant neoplasm of prostate; Translations: [FAMILY HX MALIG NEOPLASM PROSTATE]Onset: 34-99-1044KxeqjomoOvxbrjtt codes; unclassified (1 source)Family history of malignant neoplasm, unspecified; Translations: [FAM HX MALIGNANT NEOPLASM UNS]Onset: 94-19-2240PbsjrenkHtabnwwpf and history of mental health and substance abuse codes (7 sources)H/O: Disorder; Translations: [Personal history of nicotine dependence]Onset: 03-81-4906NueslnxhYmlcuwnniwgp (3 sources)CONTACT W/AND (SUSP) EXPOS COVID-19; Translations: [CONTACT W/AND (SUSP) EXPOS COVID-19]Onset: 35-37-9504Klrcjvuabvzj (1 source)COUGH, UNSPECIFIED; Translations: [COUGH, UNSPECIFIED]Onset: 84-27-9695Dpbzzlyppjct (1 source)Circulatory ProblemOnset: 03-31-2024 Past or Other Problems Problem ClassificationProblemDateDocumented DateEpisodic/ChronicInflammatory diseases of female pelvic organs (1 source)Subacute and chronic vaginitis; Translations: [Subacute and chronic vaginitis]Onset: 38-08-6166EyrwjbqqVxqra connective tissue disease (4 sources)Pain in right foot; Translations: [PAIN IN RIGHT FOOT]Onset: 22-26-0244TvyvazplGekin female genital disorders (1 source)Pelvic congestion syndrome; Translations: [Other specified conditions associated with female genital organs and menstrual cycle]12-06-3887Ndtbqqhe Other nervous system disorders (20 sources)Other acute postprocedural pain; Translations: [Pain in joint, lower leg]Onset: 430040-35-9185CrtnmzozIxpce screening for suspected conditions (not mental disorders or infectious disease) (5 sources)Encounter for screening mammogram for malignant neoplasm of breast; Translations: [Encounter for screening for malignant neoplasm of cervix]Onset: 78-97-0230SdghudvyMjtvd skin disorders (4 sources)Mass of parotid glandOnset: 068577-42-4998KvqzaqtkLccem upper respiratory disease (1 source)Nasal congestion; Translations: [NASAL CONGESTION]Onset: 05-29-2022 EpisodicResidual codes; unclassified (1 source)Pain, unspecified; Translations: [Pain, unspecified]Onset: 12-26-2023 EpisodicUnclassified (1 source)CONTACT W/AND (SUSP) EXPOS COVID-19; Translations: [CONTACT W/AND (SUSP) EXPOS COVID-19]Onset: 05-25-2022 Results Test NameValueInterpretationReference RangeFacilityXR Knee - right 3 Viewson 97-45-2600Zobkwql Result: Xrays taken in the office today saved to the permanent record, AP, sunrise and lateral weightbearing films, show stable position and alignment of the right TKA prosthesis. No sign of loosening, fracture or infectionCone Health Women's HospitalXR Knee - right 3 Viewson 24-20-8458Lelbaxzml Study observation (narrative)[facility] Knee - right 3 Viewson 12-16-2024 Imaging Result: Xrays taken in the office today saved to the permanent record, Ap, lateral and sunrise weight bearing films, show stable position and alignment of the knee prosthesis. No sign of loosening or infection. Severe DJD left knee.[facility] Women's HospitalRadiology Study observation (narrative)[facility] Cancer CenterSurgical Pathology Reporton [id number] Pathology Report[address] [address]- Surgical Pathology Report Collected Date/Time: 11/17/2024 10:15 EDT Pathologist: Ever BATES PhD, Estrella Donald Received Date/Time: 11/17/2024 13:48 EDT Steve Duarte DO, DO, Steve Goldstein Surgical Pathology Report - [...] eburnated. Cross-section reveals no other discrete mass. Pulmonary Function Technician sections are submitted in two cassettes. A2 is decalcified. () [facility] Microscopic Description Microscopic examination performed unless gross only specified. Quality was accessed and acceptable. This report was transcribed using voice recognition technology and might contain unintended computerized tearer press clipping errors.[facility] CampusComment on above:Performed By: #### [id number] #### [facility] [address], [place] [address]FB KNEE 1 OR 2 VIEWS RIGHTon 11-19-2024 [...] Nadir Marte MD Transcribed by: VEDA Technologist: JENISEadiologFlora hinds MD - 11/19/2024 Exam Date/Time: 11/17/2024 12:46 EDT [...] Marte MD Transcribed by: VEDA Technologist: [facility] OF SOUTHEASTERN MASSACHUSETTSGene The Metrohealth SystemXR KNEE 1 OR 2 VIEWS RIGHTOrdered By: Radiologist Radiology on 16-35-2130XPVM NoteSick Work Phone: XR Knee 1 or 2 Views Righton 22-63-2583NA Knee 1 or 2 Views RightExam Date/Time: 11/17/2024 12:46 EDT Reason for Exam: [...] Nadir Marte MD Transcribed by: VEDA Technologist: ManuelitoScotland Memorial Hospitalomer [facility] MarylandMain OR Intraoperative Recordon [id number] OR Intraoperative RecordMain OR Intraoperative Record IntraOp Document Type FT Summary Primary Physician: Steve Duarte DO Finalized Date/Time: 11/18/24 09:45:22 Pt. Name: MICHELLE RODRIGUEZ./Sex: 1960 Female Med Rec #: [id number] Physician: Steve Duarte DO Financial #: [id number] Pt. Type: A Room/Bed: [place] [address] Admit/Disch: 11/17/24 08:07:32 - 11/17/24 17:25:00 Institution: Case Times FT Entry 1 Patient Times In Room 11/17/24 10:56:00 Out Room 11/17/24 12:23:00 Procedure Times Start 11/17/24 11:26:00 Stop 11/17/24 12:19:00 Anesthesia Times Start 11/17/24 10:56:00 Stop 11/17/24 12:23:00 Block Timeout w/ 11/17/24 10:10:00 Anesthesia Last Modified By: Ranulfo HARRY, Jordan Harris 11/17/24 12:23:31 General Comments: Right adductor canal block performed by CRNA. Annika Covarrubias, KAMRYN to assist with the block. Patient's heartrate- 55, Sp02-97% on room air. patient tolerated block well. Patient taken back to [facility] bay 8 andf placed on monitor.-KAMRYN Hebert Case Attendance FT Entry 1 Entry 2 Entry 3 Case Attendee Steve Duarte DO RN, Loulou Sam LPN Role Performed Surgeon - Primary Paraffin Machine Operator - Primary Scrub - Primary Time In 11/17/24 11:21:00 11/17/24 10:56:00 11/17/24 10:56:00 Time Out 11/17/24 12:11:00 11/17/24 12:23:00 11/17/24 12:23:00 Procedure KNEE TOTAL KNEE TOTAL KNEE TOTAL ARTHROPLASTY(Right) ARTHROPLASTY(Right) ARTHROPLASTY(Right) Comments Last Modified By: Ranulfo RN, Jordan Winchester RN, Jordan Winchester RN, Jordan Harris 11/17/24 12:23:32 11/17/24 12:23:32 11/17/24 12:23:32 Entry 4 Entry 5 Entry 6 Case Attendee Vinicius PLANT PROPAGATOR, Tina CASTORENAA, Shreya Fields PLANT PROPAGATOR, Nicki Montgomery Role Performed Staff - Other Staff - Other PLANT PROPAGATOR/SA Time In 11/17/24 10:56:00 11/17/24 10:56:00 11/17/24 10:56:00 Time Out 11/17/24 12:23:00 11/17/24 12:23:00 11/17/24 12:23:00 Procedure KNEE TOTAL KNEE TOTAL KNEE TOTAL ARTHROPLASTY(Right) ARTHROPLASTY(Right) ARTHROPLASTY(Right) Comments 2nd scrub at surgical retractor valverde at field surgical field Last Modified By: Ranulfo HARRY, Jordan Mendez PLANT PROPAGATOR, Anju Winchester RN, Jordan Harris 11/17/24 12:23:32 11/18/24 09:43:58 11/17/24 12:23:32 Entry 7 Case Attendee Maren TELLO, CARDIAC CATH LAB MANAGER, Roberts N. 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 Time Out Complete 11/17/24 11:22:00 Outcomes [...] is free from s (more content not included)...[facility] CampusOperative Reporton [id number] ReportOperative Report SURGERY DATE: 11/17/2024 LICENSING ANALYST: Nicki Fields CNellyF.ANelly PREOPERATIVE DIAGNOSES: 1. Right knee endstage osteoarthritis [...] advanced as well. The last series of viscos upplementation provided little to no relief. The pros, [...] thigh. The leg was prepped and draped sarahi sterile fashion. A time-out procedure occurred consistent [...] infection or synovitis. Moderate-size effusion. The patella wasappropriately cut, measured, and retracted. The intramedullary drill [...] 5 mm trial. The patella size was 35.All trial components were removed. The capsule, gutters, and soft tissues were soaked with Irriseptper protocol. Exparel 100 cc was injected along the fascia and subcutaneous tissues. After pulsed lavage irrigation was performed, the Angela Simplex cement was mixed and all components cemented in p lace and allowed to harden for 16 minutes. [...] count correct SPECIMEN: Bone PATIENT CONDITION: Satisfactory Esvin Guadarrama Dictated: 11/17/2024 [id number] Transcribed: 11/17/2024 cc:Maggie Baldwin MDSumma Health Akron CampusComment on above:Result Comment: Electronically Signed By: Steve Duarte DO\.br\Date and Time Signed: 11/18/24 06:06 EDTABO/Rhon 69-80-9277QDH/RhPositiveInvalid Interpretation [facility] HospitalComment on above:Performed By: #### [id number] #### [facility] [address], [place] [address]VIF/Rh History Checkon [id number]/Rh History CheckVerified Hx Blood TypeNoHocking Valley Community HospitalComment on above:Performed By: #### [id number] #### [facility] [address], [place] [address]CGIWzc 77-10-0900LGIL Gel InterpNegativeNoHocking Valley Community HospitalComment on above:Performed By: #### [id number] ####[facility] Tks[address] Pylemohawk valley general hospitalmiriamSU[place], [place] [address]LWEEG BANKOrdered By: Brenda Luong on 82-03-2811UDW/Rh InterpPositiveInvalid Interpretation Code [facility] BB SubsectionABSC Gel InterpNegative (11/17/24 8:47 AM)NormalCHICKASAW NATION MEDICAL C[facility] BB SubsectionBlood Bank ID#on [id number] Invalid Interpretation CodeScotland Memorial Hospitaler [facility]pmc Western MarylandComment on above:Performed By: #### [id number] #### [facility] [address] [place], [place] [address]Kkjmxciwv Instructionson 21-19-1962Bgdjssvjg Instructions Discharge Instructions MICHELLE RODRIGUEZ :1960 MRN:[id number] Visit Date:11/17/2024 Inpatient Discharge Instructions Your Care [...] make important decisions for 24 hours, Do notdrink alcoholic beverages for 24 hours Discharge Diet(s) [...] PM EDT Comments: Keep scheduled appointment Where: [address] [place], [place] [id number] Mention Mobile (1) Medications What How Much When Why Instructions Next Dose Unchanged acetaminophen-oxycodone (Percocet 5 mg-325 mg oral tablet) See instructions Post-traumatic osteoarthritis of right knee Take one to two oral every 4 hours as needed for surgical pain. Pickup at [facility]/pharmacy #[id number] Unchanged aspirin (aspirin 325 mg Oral EC Tab) 1 Tablets By Mouth Every day Unchanged docusate (Colace 100 mg Cap) 1 Capsules By Mouth 2 times a day Pickup at [facility]/pharmacy #[id number] Unchanged ferrous sulfate (ferrous sulfate 325 [...] a day (in the evening) Pharmacy Information [facility]/pharmacy #[id number]: [address] [place], [place] [phone] Allergies No Known Allergies No Known Medication Allergies Devices Implanted/Removed This Visit Notice: You have devices implanted this visit that may not be MRI compatible. Implanted KNEE TOTAL ARTHROPLASTY Knee R ATTUNE FEMORAL POSTERIOR STABILIZED NARROW SIZE 6N RIGHT CEMENTED 11/17/2024 CEMENT SIMPLEX PLAIN VISCOSITY HIGH [6194-1-010] (2), 11/17/2024, Unknown - BRANDY: {01}[id number]{[id number]{[id number] ATTUNE TIBIAL BASE FIXED BEARING SIZE 5 [...] progress as told b (more content not included)...Normal [facility] HospitalComment on above:Result Comment: Electronically Signed By: Shirley HARRY, Karen Duke.lloyd\Date and Time Signed: 11/17/24 15:07 EDT Main OR PACU I Recordon [id number] OR PACU I RecordMain OR PACU I Record PACU Phase I Document Type FT Summary Primary Physician: Steve Duarte DO Finalized Date/Time: 11/17/24 13:30:31 Pt. Name: MICHELLE RODRIGUEZ/Sex: 1960 Female Med Rec #: [id number] Physician: Steve Duarte DO Financial #: [id number] Pt. Type: A Room/Bed: Admit/Disch: 11/17/24 08:07:32 - Institution: Case Times [...] individualized perioperative plan of care The patient's rightto privacy is maintained The patient's value system, [...] with or improved from baseline levels established preoperativelyThe patient's cardiovascular status is consistent with or improved from baseline levels established preoperatively The patient's cardiovascular status is consistent with or improved from baseline levels established preoperatively The patient demonstrates and/or reports adequate pain control throughout the perioperative period The patient received appropriate medication(s), safely administered during the perioperativeperiod Acuity Level PACU I FT Entry 1 Start Time 11/17/24 12:25:00 Stop Time 11/17/24 12:55:00 Acuity Level Acuity Level I Last Modified By: Kimmie Jang RN 11/17/24 13:30:28 Finalized By: Kimmie Jang RN Document Signatures Signed By: Kimmie Jang RN 11/17/24 13:30[facility] PACU II Recordon [id number] OR PACU II RecordMain OR PACU II Record PACU Phase II Document Type FT Summary Primary Physician: Steve Duarte DO Finalized Date/Time: 11/17/24 17:28:31 Pt. Name: MICHELLE RODRIGUEZ/Sex: 1960 Female Med Rec #: [id number] Physician: Steve Duarte DO Financial #: [id number] Pt. Type: A Room/Bed: [place] [address] Admit/Disch: 11/17/24 08:07:32 - Institution: Case Times [...] and monitors body temperature Evaluates postoperative respiratory statusEvaluates postoperative cardiac status Evaluates postoperative neurological status Assesses pain control, collaborated in initiating patient-controlled analgesia and implements alternative methods of pain control Verifies allergies, administers prescribed medications and solutions, evaluates response to medications Entry 1 In PACU II 11/17/24 12:55:00 Discharge from PACU 11/17/24 17:25:00 II Outcomes Met? Yes Last Modified By: Jeremiah HARRY, Daphne Germain 11/17/24 17:28:29 Post-Care Text: The patient demonstrates knowledge of the expected response to the operative or invasive procedure The patient's care is consistent with the individualized perioperative plan of care The patient's rightto privacy is maintained The patient's value system, [...] with or improved from baseline levels established preoperativelyThe patient's cardiovascular status is consistent with or improved from baseline levels established preoperatively The patient's neurological status is consistent with or improved from baseline levels established preoperatively The patient demonstrates and/or reports adequate pain control throughout the perioperative period The patient received appropriate medication(s), safely administered during the perioperativeperiod Finalized By: Daphne Daniels RN Document Signatures Signed By: Daphne Daniels RN 11/17/24 17:28NoHocking Valley Community HospitalOperative Reporton [id number] ReportOperative Report Patient: MICHELLE RODRIGUEZ MRN: Age: 64 years [...] To Recovery Room in stable and satisfactory condition..[facility] CampusComment on above:Result Comment: Electronically Signed By: Steve Duarte DO\.br\Date and Time Signed: 11/17/24 12:23 EDTProceduralon 58-99-0127PisvfbtnhzKvumrgvddo Patient: MICHELLE RODRIGUEZ MRN: Age: 64 years Sex: Female : 1960 Associated Diagnoses: None Author: Maren TELLO, LINDA, Queen Jessa. Procedure Nerve Block Block Type: Adductor canal [...] Using maximal sterile barrier technique per current CMS guidelines including hand hygeine, Guidance (Ultrasound used [...] completed by Queen Maren CRNA under my supervision.[facility] CampusXR KNEE 1 OR 2 VIEWS RIGHTon [id number] Study observation (narrative)[facility] CenterInpatient Patient Summaryon 39-51-9236Kbkbwgbqz Patient SummaryInpatient Patient Summary [facility] [address], [place] [address] [facility] Clinical Discharge Instructions PERSON INFORMATION Name: MICHELLE RODRIGUEZ PHYSICIANS Admitting Physician: Steve Duarte DO Attending Physician: Steve Duarte DO PCP: Nemesio BATES, Maggie Discharge Diagnosis: Post-traumatic osteoarthritis of right knee Comment: PATIENT EDUCATION INFORMATION Instructions: Elaina - Total Knee Arthroplasty (CUSTOM) Medication Leaflets: Follow up: With: Address: When: Steve Duarte [address] [place] [address] [facility] () Comments: Keep scheduled appointment Type Location Start [facility] Surgery [facility] Surgical Services 11/17/2024 12:30 PM 11/17/2024 1:30 [...] Mouth once a day (in the evening). Comment:[facility]Out[facility] Surgery Discharge Instructionon 43-87-2951Wlulygtorf Surgery Discharge InstructionOutpatient Surgery Discharge Instruction [place] [id number] Patient Discharge Instructions PERSON INFORMATION Name: MICHELLE RODRIGUEZ Date of : 1960 Current Date: 11/11/2024 17:11:50 PHYSICIANS Admitting Physician: Steve Duarte DO Discharge Diagnosis: Post-traumatic osteoarthritis of right knee MICHELLE RODRIGUEZ has been given the following list of follow-up instructions, prescriptions, and patienteducation materials: PATIENT FOLLOW-UP INFORMATION Diet: Regular, Drink [...] THE NEAREST EMERGENCY ROOM OR CALL 911 IEVE LISA M, have received the attached patient education materials/instructions and have verbalized understanding: May we do a follow up call? Yes No I was present when discharge instructions were given Patient Signature Date Clinican/Nurse Signature Date Follow up: With: Address: When: Steve Duarte [address] [place], [place] [phone] Mention Mobile (1) Comments: Keep scheduled appointment Type Location Start [facility] Surgery [facility] Surgical Services 11/17/2024 12:30 PM 11/17/2024 1:30 [...] to serve you. Thank you for choosing [facility] HERE ARE THE MEDICATION CHANGES THAT OCCURRED [...] (in the evening). PATIENT EDUCATION INFORMATION Instructions: [place], [place] [facility] DISCHARGE INSTRUCTIONS TOTAL KNEE [...] Page 2 Physical Therapy (more content not included)...[facility] ABO/Rh RetypeOrdered By: Mercedes Chavarria on 89-91-5233IUN/Rh Retype InterpPositive Invalid Interpretation [facility] BB SubsectionComment on above:Performed By: #### [id number] #### [facility] [address], [place] [address]OQULcwcapd By: SYSTEM SYSTEM on 19-22-8850Dxovl gap [Moles/Vol] 14 mmol/LNormal6-16Remisol ChemComment on above:Performed By: #### [id number] #### [facility] [address], [place] [address]Dglpzmn [Mass/Vol]9.7 mg/dLNormal8.9-11.1Remisol ChemComment on above:Performed By: #### [id number] #### [facility] [address], [place] [address]Ulhfgoxt [Moles/Vol]104 mmol/VRwovgz363-746Lixffuh ChemComment on above:Performed By: #### [id number] #### [facility] [address], [place] [address]VM7 [Moles/Vol]25 mmol/GSkhssf27-25Cwseigy ChemComment on above:Performed By: #### [id number] #### [facility] [address] [place] [address]Owapdwqevk [Mass/Vol]0.9 mg/dLNormal0.5-1.3Remisol ChemComment on above:Performed By: #### [id number] #### [facility] [address] [place] [address]Wjczeeg [Mass/Vol]89 mg/kIQmljge69-124Obvqerv ChemComment on above:Performed By: #### [id number] #### [facility] [address] [place] [address]Wafzgcnlf [Moles/Vol]4.0 mmol/LNormal3.5-5.3Remisol ChemComment on above:Performed By: #### [id number] #### [facility] [address] [place] [address]Uthewq [Moles/Vol]139 mmol/EZyzuia286-483Egzuxdp ChemComment on above:Performed By: #### [id number] #### [facility] [address], [place] [address]Eolf nitrogen [Mass/Vol]21 mg/dLNormal5-21Remisol ChemComment on above:Performed By: #### [id number] #### [facility] [address] [place] [address]BIGyn 02-31-4627Kcay nitrogen/Creatinine [Mass ratio]23 No AikynTgzw40-85Eeggnu [facility] MarylandComment on above:Performed By: #### [id number] #### [facility] [address] [place] [address]FJE w/ Auto DiffOrdered By: SYSTEM SYSTEM on 10-31-2024 Basophils/100 WBC (Bld)0.2 %Normal0.0-2.0Remisol HemeComment on above:Performed By: #### [id number] #### [facility] [address] [place] [address]Rfuerfkfd/Leukocytes Auto (Bld) [Pure # fraction]0.0 E9/LNormal 0.0-0.2Remisol HemeComment on above:Performed By: #### [id number] #### [facility] [address] [place] [address]Jtwlqffulaw (Bld) [#/Vol]0.1 E9/LNormal0.0-0.5Remisol Heme Comment on above:Performed By: #### [id number] #### [facility] [address] [place] [address]Boofgodasyq/100 WBC (Bld)2.3 %Normal0.0-8.0Remisol HemeComment on above:Performed By: #### [id number] #### [facility] [address] [place] [address]Zwynhcyqimd distribution width (RBC) [Ratio]13.3 %Normal 10.9-14.2Remisol HemeComment on above:Performed By: #### [id number] #### [facility] [address] [place] [address]Txzpuycnst (Bld) [Volume fraction]38.3 %Bbfdbz83.0-46.0Remisol HemeComment on above:Performed By: #### [id number] #### [facility] [address] [place] [address]Hvyxdmuvyu (Bld) [Mass/Vol]13.0 g/dQFbtgfd13.0-16.0Remisol Heme Comment on above:Performed By: #### [id number] #### [facility] [address] [place] [address]Prwvrlhbxwz (Bld) [#/Vol]2.0 E9/LNormal1.0-4.0Remisol Heme Comment on above:Performed By: #### [id number] #### [facility] [address] [place] [address]Gxiagxkilsq/100 WBC (Bld)33.4 %Vjhmba95.0-50.0Remisol Heme Comment on above:Performed By: #### [id number] #### [facility] [address] [place] [address] 722[address]LYL (RBC) [Entitic mass]30.6 yaVoodsn68.0-34.0Remisol Heme Comment on above:Performed By: #### [id number] #### [facility] [address] [place] [address]KXUN (RBC) [Mass/Vol]34.0 g/tSJjlpit87.4-36.0Remisol Heme Comment on above:Performed By: #### [id number] #### [facility] [address] [place] [address]TGW (RBC) [Entitic vol]89.9 sCQmcdpu38.0-100.0Remisol Heme Comment on above:Performed By: #### [id number] #### [facility] [address] [place] [address]Hfviumiha (Bld) [#/Vol]0.5 E9/LNormal0.2-1.0Remisol HemeComment on above:Performed By: #### [id number] #### [facility] [address] [place] [address]Cbixpakmzed (Bld) [#/Vol]3.2 E9/LNormal2.0-7.5Remisol Heme Comment on above:Performed By: #### [id number] #### [facility] [address] [place] [address]Uqjblsnsygu/100 WBC (Bld)55.6 %Mxldem08.0-75.0Remisol Heme Comment on above:Performed By: #### [id number] #### [facility] [address] [place] [address]Zwcinein mean volume (Bld) [Entitic vol]8.9 fLNormal6.4-10.8 Remisol HemeComment on above:Performed By: #### [id number] #### [facility] [address], [place] [address]Zxeumaxul (Bld) [#/Vol]275.0 E9/IIxyqlw221.0-500.0Remisol Heme Comment on above:Performed By: #### [id number] #### [facility] [address] [place] [address]CYU (Bld) [#/Vol]4.3 E12/LNormal4.3-5.9Remisol HemeComment on above:Performed By: #### [id number] #### [facility] [address] [place] [address]DSH corrected for nucl RBC Auto (Bld) [#/Vol]5.9 E9/LNormal 4.0-11.0Remisol HemeComment on above:Performed By: #### [id number] #### [facility] [address] [place] [address]DULEHRSUCIebkpln By: SYSTEM SYSTEM on 23-11-4716Isnb nitrogen/Creatinine [Mass ratio]23 mg/qrImzl82 - 20Remisol ChemHEMATOLOGYOrdered By: SYSTEM SYSTEM on 23-43-5414Ujdbwkvlm/100 WBC (Bld)8.5 %Normal4.0 - 14.0 % Remisol HemeUA WITH CULT RFLXon 37-59-8353KWVOSHXWK:PRTHR:PT:URINE:ORD:TEST STRIP.AUTOMATEDNegativeNegative mg/dLMissouri Delta Medical Center CLARITY:TYPE:PT:URINE:NOM:ClearClearMissouri Delta Medical Center CLASS:TYPE:PT:URINE COLLECTION METHOD:NOM:*Clean CatchMissouri Delta Medical Center COLOR:TYPE:PT:URINE:NOM:AUTOLight-YellowYellowNOMS HealthcareComment on above: Microscopic readings are only performed on those samples that meet specific criteria set forth by [facility] PH:LSCNC:PT:URINE:QN:TEST STRIP5.05.0 - 9.0MS [facility] SPECIFIC GRAVITY:RDEN:PT:URINE:QN:TEST STRIP1.0221.005 - 1.030NOSaint [facility]'s [facility]ree[facility] GLUCOSE:PRTHR:PT:URINE:ORD:TEST STRIPNegativeNegative mg/dLNOID Healthcare HEMOGLOBIN:MCNC:PT:URINE:SEMIQN:TEST STRIP.AUTOMATEDNegativeNegative mg/dLNOMS HealthcareKETONES:PRTHR:PT:URINE:ORD:TEST STRIP.AUTOMATEDNegativeNegative mg/dL NOMS HealthcareLEUKOCYTE ESTERASE:PRTHR:PT:URINE:ORD:TEST STRIP.AUTOMATED NegativeNegative CD:[id number] HealthcareNITRITE:PRTHR:PT:URINE:ORD:TEST STRIP.AUTOMATEDNegativeNegative mg/dLNOID Healthcare PROTEIN:PRTHR:PT:URINE:ORD:TEST STRIPNegativeNegative mg/dLNOID Healthcare UROBILINOGEN:MCNC:PT:URINE:SEMIQN:TEST STRIPNegativeNegative mg/dLNOID HealthcareOriginal Ordering Provider: DO Steve Morocho with Cult RflxOrdered By: SYSTEM SYSTEM on 39-82-5616Gtnavbuik Ql (U)NegativeNormalNegativeCHICKASAW N[facility] UA Auto SSComment on above:Performed By: #### [id number] #### [facility] [address], [place] [address]Zoopijb Ql (U)NegativeNormalNegativeCHICKASAW NATION [facility] UA Auto SSComment on above:Performed By: #### [id number] #### [facility] [address], [place] [address]Ptfacqqghe Auto test strip (U) [Mass/Vol]NegativeNormalNegative [facility] UA Auto SSComment on above:Performed By: #### [id number] #### [facility] [address], [place] [address]Esokyxz Auto test strip Ql (U)NegativeNormalNegativeCHICKAS[facility] UA Auto SSComment on above:Performed By: #### [id number] #### [facility] [address], [place] [address]Aeupiyiur esterase Auto test strip Ql (U)NegativeNormalNegative [facility] UA Auto SSComment on above:Performed By: #### [id number] #### [facility] [address], [place] [address]Oispsav Auto test strip Ql (U)NegativeNormalNegativeCH[facility]AS[facility] UA Auto SSComment on above:Performed By: #### [id number] #### [facility] [address] [place] [address]Dsszzap Ql (U)NegativeNormalNegativeCHICKAS[facility] UA Auto SSComment on above:Performed By: #### [id number] #### [facility] [address] [place] [address]Optdvqpbmmgr (U) [Mass/Vol]NegativeNormalNegativeCHICKAS[facility] UA Auto SSComment on above:Performed By: #### [id number] #### [facility] [address] [place] [address]MB with Cult Rflxon 89-00-0464Focrjcq (U)ClearNormalClearMercy Health – The Jewish HospitalComment on above:Performed By: #### [id number] #### [facility] [address] [place] [address]Itvuw (U)Light-YellowNormalYellowMercy Health – The Jewish Hospital Comment on above:Result Comment: Microscopic readings are only performed on those samples that meet specific criteria set forth by [facility].Performed By: #### [id number] #### [facility] [address] [place] [address]wM (U)5.0 [pH]Invalid Interpretation Code5.0-9.0[facility] HospitalComment on above:Performed By: #### [id number] #### [facility] [address] [place] [address]Eilfxfrk gravity (U) [Rel density]1.022Invalid Interpretation Code1.005-1.030[facility] HospitalComment on above:Performed By: #### [id number] #### [facility] [address], [place] [address]Pvbz of Urine collection methodClean CatchNormalMercy Health – The Jewish HospitalComment on above:Performed By: #### [id number] #### [facility] [address], [place] [address]UCXHXZNHLYGvcjatb By: SYSTEM SYSTEM on 86-99-5835Cxubmlm (U) Clear (10/31/24 3:00 PM)NormalClearFNORMAN [facility] UA Auto SSColor (U)Light-Yellow 1 (10/31/24 3:00 PM)NormalYellowCHICKASAW NATION MEDICAL CENTER [facility] UA Auto SSComment on above:Interpretive Data: Microscopic readings are only performed on those samples that meet specific criteria set forth by [facility].pH (U)5.0 *NA* (10/31/24 3:00 PM)Invalid Interpretation Code5.0 - 9.0[facility] UA Auto SSSpecific gravity (U) [Rel density]1.022 *NA* (10/31/24 3:00 PM)Invalid Interpretation Code1.005 - 1.030[facility] UA Auto SS URINALYSISOrdered By: Sienna Maza on 29-52-9035GL Spec DescClean Catch (10/31/24 3:00 PM)NormalCHICKASAW NATION MEDICAL CENTER – [facility] UA Auto SSeGFROrdered By: SYSTEM SYSTEM on 54-05-0997iFVW48 mL/min/1.73 y8Bfcjjb>=59Remisol ChemComment on above:Performed By: #### [id number] #### [facility] [address], [place] [address] Inj/Asp: bilateral kneeon 93-10-9686Cwtqgm [place], [place] 06/03/2024 2:17 PM L Inj/Asp: bilateral knee on 06/03/2024 1:45 PM Indications: diagnostic evaluation Details: 22 G needle Medications (Right): 2 mL sodium hyaluronate 16.8 MG/2ML Medications (Left): 2 mL sodium hyaluronate 16.8 MG/2ML Outcome: tolerated well, no immediate complications Consent was given by the patient.[facility] Inj/Asp: bilateral kneeon 20-11-7750Hwllep [place], [place] 05/27/2024 2:15 PM L Inj/Asp: bilateral knee on 05/27/2024 1:55 PM Indications: diagnostic evaluation Details: 22 G needle Medications (Right): 2 mL sodium hyaluronate 16.8 MG/2ML Medications (Left): 2 mL sodium hyaluronate 16.8 MG/2ML Outcome: tolerated well, no immediate complications Consent was given by the patient. [facility] HospitalNo Panel Informationon 42-74-4251Uqernh [place], [place] 05/20/2024 2:58 PM L Inj/Asp: bilateral knee on 05/20/2024 2:25 PM Indications: diagnostic evaluation Details: 22 G needle Medications (Right): 2 mL sodium hyaluronate 16.8 MG/2ML Medications (Left): 2 mL sodium hyaluronate 16.8 MG/2ML Outcome: tolerated well, no immediate complications Consent was given by the patient. [facility] HospitalRadiology Study observation (narrative)[facility] Knee - left 3 Viewson 92-33-1250Gdgmemk Result: Multiple weightbearing views (AP, Lateral and sunrise) are reviewed for the permanent PACS record. Advanced grade 3-4 degenerative changes are present of the bilateral knee. No fracture, dislocation, tumor or infection seen. Images are reviewed with the patient at length.[facility] Knee - right 3 Viewson 83-69-0393Gmclxrn Result: Multiple weightbearing views (AP, Lateral and sunrise) are reviewed for the permanent PACS record. Advanced grade 3-4 degenerative changes are present of the bilateral knee. No fracture, dislocation, tumor or infection seen. Images are reviewed with the patient at length.[facility]Main OR Intraoperative Recordon [id number] OR Intraoperative RecordMain OR Intraoperative Record IntraOp Document Type FT Summary Primary Physician: Steve VAZQUEZ MD Finalized Date/Time: 05/13/24 10:26:02 Pt. Name: MICHELLE RODRIGUEZ/Sex: 1960 Female Med Rec #: [id number] Physician: GEORGE BATES, Steve Clinton Financial #: [id number] Pt. Type: O Room/Bed: / Admit/Disch: 05/12/24 06:46:31 - 05/12/24 23:59:59 Institution: Case Times FT Entry 1 Patient Times In Room 05/12/24 07:56:00 Out Room 05/12/24 08:18:00 Procedure Times Start 05/12/24 08:00:00 Stop 05/12/24 08:16:00 Anesthesia Times Start 05/12/24 07:56:00 Stop 05/12/24 08:18:00 Time at [facility] 05/12/24 08:05:00 Last Modified By: Rosangela Tejada RN 05/12/24 08:17:53 General Comments: 05/13/24 Chart opened to review and send charges LRoth CSFA Case Attendance FT Entry 1 Entry 2 Entry 3 Case Attendee Silverio MCKEON, Bebeto VAZQUEZ MD, Steve Tejada RN, Rosangela Giraldo Role Performed CARDIAC CATH LAB MANAGER Surgeon - Primary Paraffin Machine Operator - Primary Time In 05/12/24 07:56:00 05/12/24 07:56:00 05/12/24 07:56:00 Time Out 05/12/24 08:18:00 05/12/24 08:18:00 05/12/24 08:18:00 Procedure COLONOSCOPY(.) COLONOSCOPY(.) COLONOSCOPY(.) Comments Dr. Ford supervising case Last Modified By: Mallory RN, Rosangela Tejada RN, Rosangela Barrientos RN 05/12/24 08:17:58 F 05/12/24 08:17:58 F 05/12/24 [...] Time Out Bebeto Sawyer CRNA, Given Participants GEORGE BATES, Mallory Plata RN, Shirley Bueno Micala E Time Out Complete 05/12/24 07:57:00 [...] and tissue Entry 1 Skin Integrity Intact, [place], Warm, & Skin Abnormality No Dry Outcomes Met? Yes Last Modified By: Rosangela Tejada RN 05/12/24 08:00:30 Post-Care Text: The patient is [...] Extended Positioning Device Safe (more content not included)...[facility] 31-47-3272Yhbmiqlyr Reminders From: Kary Ballard LPN To: N - Clinical; Sent: 05/13/2024 10:07:25 EST Show up: 04/11/2034 07:00:00 EDT Subject: colonoscopy recall Due Date/Time: 05/12/2034 07:00:00 EST Reminder/Recall Patient due for screening colonoscopy 05/12/2034.[facility] CampusDischarge Instructionson 12-32-1877Mlemqrlhg InstructionsDischarge Instructions EVEMICHELLE Carol :1960 Visit Date:05/12/2024 Inpatient Discharge Instructions Your [...] Steve VAZQUEZ When: Only if needed Where: [facility] Bonifacio Conway, [address] [address]- Business (1) Medications What How Much When [...] Fresh fruits, fresh vegeta (more content not included)...[facility] CampusComment on above:Result Comment: Electronically Signed By: Jack HARRY, Ramona\.br\Date and Time Signed: 05/12/24 08:27 ESTInpatient Patient Summaryon [id number] Patient SummaryInpatient Patient Summary [address] [address] [facility] Clinical Discharge Instructions PERSON INFORMATION Name: MICHELLE RODRIGUEZ MRN: [facility]#:[id number] PHYSICIANS Admitting Physician: Steve VAZQUEZ MD Attending Physician: Steve VAZQUEZ MD PCP: Nemesio BATES, Maggie Discharge Diagnosis: Diverticulosis of sigmoid colon Comment: PATIENT EDUCATION INFORMATION Instructions: Medication Leaflets: Follow up: With: Address: When: Steve VAZQUEZ [address] [place] [address], [address], [address] [address] Business (1) , only if needed MEDICATION [...] Mouth once a day (in the evening). Comment:[facility] CampusMain OR PACU II Recordon 80-94-4430Colg OR PACU II RecordMain OR PACU II Record PACU Phase II Document Type FT Summary Primary Physician: Steve VAZQUEZ MD Finalized Date/Time: 05/12/24 09:10:29 Pt. Name: MICHELLE RODRIGUEZ/Sex: 1960 Female Med Rec #: [id number] Physician: Steve VAZQUEZ MD Financial #: [id number] Pt. Type: O Room/Bed: / Admit/Disch: 05/12/24 [...] and monitors body temperature Evaluates postoperative respiratory statusEvaluates postoperative cardiac status Evaluates postoperative neurological status [...] individualized perioperative plan of care The patient's rightto privacy is maintained The patient's value system, [...] with or improved from baseline levels established preoperativelyThe patient's cardiovascular status is consistent with or improved from baseline levels established preoperatively The patient's neurological status is consistent with or improved from baseline levels established preoperatively The patient demonstrates and/or reports adequate pain control throughout the perioperative period The patient received appropriate medication(s), safely administered during the perioperativeperiod Finalized By: Ramona Santiago RN Document Signatures Signed By: Ramona Santiago RN 05/12/24 09:10[facility] CampusMain OR Preoperative Recordon 63-74-7176Uowy OR Preoperative RecordMain OR Preoperative Record Holding Area Document Type FT Summary Primary Physician: Steve VAZQUEZ MD Finalized Date/Time: 05/12/24 06:58:01 Pt. Name: MICHELLE RODRIGUEZ/Sex: 1960 Female Med Rec #: [id number] Physician: Steve VAZQUEZ MD Financial #: [id number] Pt. Type: O Room/Bed: / Admit/Disch: 05/12/24 [...] or her perioperative plan of care The patient'sright to privacy is maintained Surgery Checklist FT [...] Signatures Signed By: Rosangela Tejada RN 05/12/24 06:58[facility] Discharge Instructionon 23-05-5991Czxjtsqnns Surgery Discharge InstructionOutpatient Surgery Discharge Instruction [place] [address] Patient Discharge Instructions PERSON INFORMATION Name: MICHELLE RODRIGUEZ Date of : 1960 Current Date: 05/12/2024 08:24:36 PHYSICIANS Admitting Physician: Steve VAZQUEZ MD Discharge Diagnosis: Diverticulosis of sigmoid colon MICHELLE RODRIGUEZ has been given the following list of follow-up instructions, prescriptions, and patienteducation materials: PATIENT FOLLOW-UP INFORMATION Diet: Regular Discharge [...] were given Patient Signature Date Clinican/Nurse Signature Date Follow up: With: Address: When: Steve Conway, [address], [place] [id number] [facility] (1) , only if needed Pharmacy Information: [...] to serve you. Thank you for choosing [facility] HERE ARE THE MEDICATION CHANGES THAT OCCURRED [...] the evening). PATIENT EDUCATION INFORMATION Instructions: Medication Leaflets:[facility] CampusAmbulatory Visit Summaryon 31-38-7253Qlnhvfziqx Visit SummaryAmbulatory Visit Summary MICHELLE RODRIGUEZ :1960 MRN: Visit [...] you for choosing us for your care. [facility] ABDOMEN PELVIS W IV CONTRAST on 90-20-2729UH ABDOMEN PELVIS W IV CONTRASTEXAMINATION: CT OF THE ABDOMEN AND PELVIS WITH [...] Signed by: Hayder Nixon DO 12/11/23 Final resultNormalMerMt. Sinai Hospitalatinineon 93-67-1660Tkkbjvtgvo [Mass/Vol]0.9 mg/dL0.5 - 0.9 mg/dLBON [facility], Glocarol Filt Rate72- PINFBON [facility] on above: These results are not intended [...] therapy that affects renal tubular secretion. [facility]ITALCreatinine w/GFRon 39-09-5579Wehdnxqiyv [Mass/Vol]0.9 mg/dLNormal0.5-0.9[facility] on above:Performed By: #### CREG #### [facility] [address] [place] [address] Geophysical Support Specialist: Krissy Sweet MDGFR/1.73 sq M.predicted among non-blacks MDRD (S/P/Bld) [Vol rate/Area]72 mL/min/{1.73_m2}Normal>60[facility] Comment on above:Result Comment: These results are not intended for [...] or following therapy that affects renal tubular secretion.Performed By: #### CREG #### [address] [place] [address] Geophysical Support Specialist: Krissy Sweet MDUS NON OB TRANSVAGINALon 78-70-1628FX NON OB TRANSVAGINALUTERUS: Anteverted uterus with a heterogeneous echotexture ENDO: measures 3.5 mm RT. OVARY: Not visualized LT. OVARY: Not visualized Questionable adenomyosis of the uterus? FIBROIDS: #1 Mid posterior uterus measures 2.8 x 1.9 x 4.0 cm #2 Mid Right uterus measures 2.0 x 1.7 x 1.8 cm Interpreted by: Emily Yoo, AIR POLLUTION CONTROL ENGINEER - Cinthya Agrawal DO Signed by: Cinthya Cano DO 12/05/23 Final resultNormParkview Health Montpelier HospitalCult,Genitalon 12-03-2023 Cult,GenitalSpecimen Description .VAGINA Special Requests Site: Genital Culture STREPTOCOCCI, BETA HEMOLYTIC GROUP B LIGHT GROWTH NORMAL URO-GENITAL DENISE NEGATIVE FOR NEISSERIA GONORRHOEAE Report Status FINAL 12/03/2023NoWadsworth-Rittman HospitalComment on above: Performed By: #### GEC #### [facility] [address] [place] [address] Geophysical Support Specialist: Kenton Marcelino MD [facility] [address] [place] [address] [place] [address] Geophysical Support Specialist: Krissy Sweet MDHPV DNA High Riskon 80-50-0953KHZ [facility] on above:Result Comment: This test amplifies and detects DNA [...] suspected sexual abuse or for other forensic purposes.Performed By: #### HPVH #### [address] [address] Geophysical Support Specialist: Kenton Marcelino MDHPV Type 16Not detectedNormalNOTDEWayne HospitalComment on above:Performed By: #### HPVH #### [address] [address] Geophysical Support Specialist: Kenton Marcelino MDHPV Type 18Not detectedNormalNOTMercy Health Tiffin HospitalComascension providence hospital on above:Performed By: #### HPVH #### [address] [address] Geophysical Support Specialist: Kenton Marcelino MDOther High Risk HPVNot detectedNormalFirelands Regional Medical Center South CampusComment on above:Performed By: #### HPVH #### [address] [address] Geophysical Support Specialist: ROB LehmanV DNA High Riskon 66-23-5918NHP Sample.THIN PREPNormalMercy Groveland HospitalComment on above:Performed By: #### HPVH #### [facility] [address] [address] Geophysical Support Specialist: CRISTIN LehmanourceCERVICAL MATERIALSt. Mary's Medical CenterComment on above:Performed By: #### HPVH #### [address] [address] Geophysical Support Specialist: Kenton Marcelnio MDVaginitis DNA Probeon 88-82-9085EhzfyvhOrericzj City HospitalComment on above:Result Comment: for Olena sp. Method of testing is a DNA probe intended for detection and identification of Olena species, Gardnerella vaginalis, and Trichomonas vaginalis nucleic acid in vaginal fluid specimens from patients with symptoms of vaginitis/vaginosis. Performed By: #### VAGP #### [address] [address] Geophysical Support Specialist: Kenton Marcelino MD [facility] [address] [place] [address] Dr. [place] [phone] Geophysical Support Specialist: Krissy Sweet MDAuburn Community HospitalalexandruMarymount Hospital Comment on above:Result Comment: for Gardnerella vaginalisPerformed By: #### VAGP #### [address] [address] Geophysical Support Specialist: Kenton Marcelino MD [facility] [address] [place] [address] Dr. [place] [phone] Geophysical Support Specialist: Krissy Sweet MDAkron Children'S HospitalonasSelect Medical [facility]ty [facility] Comment on above:Result Comment: for Trichomonas VaginalisPerformed By: #### VAGP #### [address] [address] Geophysical Support Specialist: Kenton Marcelino MD [facility] [address] [place] [address] Dr. [place] [phone] Geophysical Support Specialist: UMM Bradleyytology Reporton [id number] report Cyto stain.thin prep Doc (Cvx/Vag)(NOTE) Path Number: [id number] DIAGNOSIS Imaged ThinPrep Pap - Cervical (1 monolayer slide): Specimen Adequacy: Satisfactory for evaluation. - Endocervical/transformation zone component present. Descriptive Diagnosis: Negative for [...] or for other forensic purposes. Performed at [address] [address] ([phone] Source of Specimen: A: Imaged ThinPrep Pap - Cervical (1 monolayer slide) HPV Reflex?......................HPV Regardless Clinical History Postmenopausal Z12.4 Encounter for screening for malignant neoplasm of cervix Processing Lab: [address] [address] Interpretation performed at [address] [address] This Pap Test has been evaluated with the assistance of the WaterSmart SoftwarePrep Pap Test Imaging System. The Pap smear is a screening test primarily for squamous epithelial lesions, which is subject to both false negative and false positive results. Your patient should be reminded to consult you immediately if she experiences any suspicious signs or symptoms, regardless of her Pap smear result. GYNECOLOGIC CYTOLOGY REPORT Patient Name: MICHELLE RODRIGUEZ [facility] Rec: [id number] [facility] CONSULTING PATHOLOGISTS [facility] ANATOMIC PATHOLOGY [address] [facility] [place], [place] [address] NormBarney Children's Medical Center HospitalVaginitis DNA Probeon 11-29-2023 Source.VAGINAL SWABNormOhio State Harding HospitalComment on above:Performed By: #### VAGP #### [employer] [address] [place] [address] Geophysical Support Specialist: Kenton Marcelino MD [facility] [address] [place] [address] [place] [address] Geophysical Support Specialist: MADELEINE Bradley MAMM SCREEN 3D SHELIA CADon [id number] MAMM SCREEN 3D SHELIA CADPatient: MICHELLE RODRIGUEZ Exam Date: 10/17/2022 : 1960 Gender:F Ordering : DR MAGGIE BALDWIN . Admission #: [id number] Family : Order #: [id number] CLICK HERE TO VIEW EXAM RADIOLOGY REPORT [...] unknown cancer at age 80. LOCATION: [facility] BREAST COMPOSITION: Heterogeneously dense,which may obscure [...] by: Krissy Richmond MD on 10/18/2022 at 09:12NoCommunity Memorial HospitalOCC BLD IMMUNO SCREENon 63-78-5506GUATMV BLOODNegativeNormalNEGATIVEThe [facility] HospitalComment on above:Performed By: #### OBSCRN #### [facility] [address] [place] [address] Dr. Estrella CurtisINSULINon 24-20-1658Qosvwbl3.5 uIU/mLNormal2.6-24.9The [facility] HospitalComment on above:Performed By: #### INSULIN #### [facility] [address] [place] [address] Dr. Estrella Glass AUTO DIFFon 55-15-7698OUBG #0.0 103/ulNormal0.0-0.1The [facility] HospitalComment on above:Performed By: #### CBC #### [facility] [address] [place] [address] Dr. Estrella CurtisBasophils/100 WBC (Bld)0.4 %Normal0.2-2.0[facility] Comment on above:Performed By: #### CBC #### [facility] [address] [place] [address] Dr. Estrella Jang #0.1 103/ulNormal0.0-0.7The [facility] HospitalComment on above: Performed By: #### CBC #### [facility] [address] [place] [address] Dr. Estrella Pavonosinophils/100 WBC (Bld)2.8 %Normal0.9-7.0[facility] Comment on above:Performed By: #### CBC #### [facility] [address] [place] [address] Dr. Estrella Pavonrythrocyte distribution width (RBC) [Ratio]13.3 %Nfklor46.0-15.0 The [facility] HospitalComment on above:Performed By: #### CBC #### [facility] [address] [place] [address] Dr. Estrella CurtisHematocrit (Bld) [Volume fraction]37.4 %Kbbjpf00.0-48.0The [facility] on above:Performed By: #### CBC #### [facility] [address] [place] [address] Dr. Estrella CurtisHemoglobin (Bld) [Mass/Vol]12.4 g/cFPmhrwa53.0-16.0The [facility] HospitalComment on above:Performed By: #### CBC #### [facility] [address] [place] [address] Dr. Estrella CurtisIG #0.01 10e3/ulNormal0.00-0.03The [facility] HospitalComment on above:Performed By: #### CBC #### [facility] [address] [place] [address] Dr. Estrella Garham %0.2 %Normal0.0-0.5The [facility] HospitalComment on above: Performed By: #### CBC #### [facility] [address] [place] [address] Dr. Estrella Valdez #1.6 103/ulNormal1.2-3.8The [facility] HospitalComascension providence hospital on above:Performed By: #### CBC #### [facility] [address] [place] [address] Dr. Estrella Trejomphocytes/100 WBC (Bld)34.3 %Pxfxfz62.5-60.0The [facility] HospitalComment on above:Performed By: #### CBC #### [facility] [address] [place] [address] Dr. Estrella CurtisMANUAL DIFF REQNONormalThe [facility] HospitalComment on above: Performed By: #### CBC #### [facility] [address] [place] [address] Dr. Estrella Polanco (RBC) [Entitic mass]29.7 owDsbqdz01.7-34.0The [facility] North HospitalComment on above:Performed By: #### CBC #### [facility] [address] [place] [address] [address] Estrella KhanHC (RBC) [Mass/Vol]33.2 g/xFZvlucz55.9-35.2The [facility] HospitalComment on above:Performed By: #### CBC #### [facility] [address] [place] [address] [address] Estrella KhanV (RBC) [Entitic vol]89.5 cPBxmitm64.0-99.0The [facility] HospitalComment on above:Performed By: #### CBC #### [facility] [address] [place] [address] Dr. Estrella Shaikh #0.4 103/ulNormal0.3-0.8The [facility] HospitalComment on above:Performed By: #### CBC #### [facility] [address] [place] [address] Dr. Estrella Zamoraocytes/100 WBC (Bld)9.2 %Normal1.7-12.0The [facility] Comment on above:Performed By: #### CBC #### [facility] [address] [place] [address] Dr. Estrella Hernandez #2.4 103/ulNormal1.4-6.5The [facility] HospitalComment on above:Performed By: #### CBC #### [facility] [address] [place] [address] Dr. Estrella Everettutrophils/100 WBC (Bld)53.1 %Lyhjyr66.0-75.0The [facility] HospitalComment on above:Performed By: #### CBC #### [facility] [address] [place] [address] Dr. Estrella Cyrlet mean volume (Bld) [Entitic vol]10.1 fLNormal9.5-13.5The [facility] HospitalComment on above:Performed By: #### CBC #### [facility] [address] [place] [address] Dr. Estrella CurtisPLT276 103/tdUjblqg188-828Snx Quinn HospitalComment on above: Performed By: #### CBC #### [facility] [address] [place] [address] [address] Estrella CurtisRBC4.18 106/ulCritically low4.20-5.40The [facility] on above:Performed By: #### CBC #### [facility] [address] [address] [address] Estrella CurtisWBC4.6 103/ulNormal4.0-11.0The [facility] on above: Performed By: #### CBC #### [facility] [address] [place] [address] [address] Estrella Smith THYROXINE INDEX T7on 80-39-6316UFI1.44Ghdxcv5.30-4.50The [facility] on above:Performed By: #### TSH, T7, LIPID, CMP ####[facility] [address] [place] [address]DrNelly CurtisT3U33.0 %Dwgylh68.0-39.0The [facility] on above: Performed By: #### TSH, T7, LIPID, CMP ####[facility] [address] [place] [address]DrNelly CurtisT4 [Mass/Vol]9.50 ug/dLNormal 4.80-13.90The [facility] on above:Performed By: #### TSH, T7, LIPID, CMP ####[facility] [address] [place], [place] [address]DrNelly CurtisGLYCOHEMOGLOBIN A1Con 41-56-0132DDU RECOMMENDATIONSEE BELOW NormalThe [facility] on above:Result Comment: ADA RECOMMENDED LIMIT 4.0 - 6.0 ADA THERAPEUTIC TARGET < 7.0 ACTION SUGGESTED > 7.0Performed By: #### A1C #### [facility] [address] [address] [address] Estrella CurtisGlucose [Mass/Vol]120 mg/dLNormalThe [facility] HospitalComascension providence hospital on above:Performed By: #### A1C #### [facility] [address] [address] [address] Estrella CurtisHbA1c (Bld) [Mass fraction]5.8 %Normal4.5-6.2The [facility] on above:Performed By: #### A1C #### [facility] [address] [place] [address] Dr. Estrella Tejada 02-02-4949Dmsf [Mass/Vol]82.0 ug/qQFrxzow77.0-170.0The [facility] on above:Performed By: #### IRON #### [facility] [address] [place] [address] Dr. Estrella HerreraID PROFILEon 87-83-4394JKAP-HDL RATIO NORMSEE BELOWToledo HospitalComascension providence hospital on above:Result Comment: 3.3 - 4.4 LOW RISK 4.4 - 7.1 AVERAGE RISK 7.1 - 11.0 MODERATE RISK >11.0 HIGH RISKPerformed By: #### TSH, T7, LIPID, CMP #### [facility] [address] [place] [address] Dr. Estrella Cohenesterol [Mass/Vol]203 mg/dLCritically high<=200The [facility] on above:Performed By: #### TSH, T7, LIPID, CMP #### [facility] [address] [place] [address] Dr. Estrella CurtisCholesterol in HDL [Mass/Vol]62 mg/dLCritically jwns79-99Ydc [facility] on above:Performed By: #### TSH, T7, LIPID, CMP #### [facility] [address] [place] [address] Dr. Estrella Cohenesterol in LDL [Mass/Vol]122.2 mg/dLAvita Health System Bucyrus [facility] on above:Performed By: #### TSH, T7, LIPID, CMP #### [facility] [address] [place] [address] Dr. Estrella Cohenesterian.total/Cholesterol in HDL [Mass ratio]3.3 {ratio} NormalThe [facility] on above:Performed By: #### TSH, T7, LIPID, CMP #### [facility] [address] [address] [address] Estrella Dahl NORMAL> or = 60 mg/dl - LOW CARDIOVASCULAR RISK <40 mg/dl - HIGH CARDIOVASCULAR RISKToledo HospitalComment on above:Performed By: #### TSH, T7, LIPID, CMP #### [facility] [address] [address] [address] Estrella CurtisLDL CALC NORMALSEE BELOWNoCommunity Memorial HospitalComment on above:Result Comment: <100 mg/dl OPTIMAL 100 - 129 mg/dl NEAR OR ABOVE OPTIMAL 130 - 159 mg/dl BORDERLINE HIGH 160 - 189 mg/dl HIGH >190 mg/dl VERY HIGH Performed By: #### TSH, T7, LIPID, CMP #### [facility] [address] [address] [address] Estrella CurtisTriglyceride [Mass/Vol]94 mg/dLNormal<=150The [facility] Comment on above:Performed By: #### TSH, T7, LIPID, CMP #### [facility] [address] [address] [address] Estrella CurtisVLDL CALC18.8 mg/dLNoCommunity Memorial HospitalComment on above: Performed By: #### TSH, T7, LIPID, CMP #### [facility] [address] [address] [address] Estrella CurtisPROF 14(COMP METB)on 71-66-6809Batqwqh [Mass/Vol]4.3 g/dLNormal 3.4-5.0The [facility] HospitalComment on above:Performed By: #### TSH, T7, LIPID, CMP #### [facility] [address] [address] [address] Estrella CurtisAlbumin/Globulin [Mass ratio]1.3 {ratio}NormalThe [facility] HospitalComascension providence hospital on above:Performed By: #### TSH, T7, LIPID, CMP #### [facility] [address] [place] [address] Dr. Estrella Contreras [Catalytic activity/Vol]84 U/QAvgvlc64-115Pxu [facility] HospitalComment on above:Performed By: #### TSH, T7, LIPID, CMP #### [facility] [address] [place] [address] Dr. Estrella Gilbert [Catalytic activity/Vol]48 U/STrswqv92-29Fsa [facility] HospitalComment on above:Performed By: #### TSH, T7, LIPID, CMP #### [facility] [address] [place] [address] Dr. Estrella Panchalon gap [Moles/Vol]12.0 mmol/LNormalGreen Cross Hospital Comment on above:Performed By: #### TSH, T7, LIPID, CMP #### [facility] [address] [place] [address] Dr. Estrella Duke [Catalytic activity/Vol]33 U/EEqncih88-57PyiGreen Cross HospitalComment on above:Performed By: #### TSH, T7, LIPID, CMP #### [facility] [address] [place] [address] Dr. Estrella CurtisBilirubin [Mass/Vol]0.5 mg/dLNormal0.2-1.0[facility] Comment on above:Performed By: #### TSH, T7, LIPID, CMP #### [facility] [address] [place] [address] Dr. Estrella CurtisCalcium [Mass/Vol]9.3 mg/dLNormal8.5-10.1[facility] Comment on above:Performed By: #### TSH, T7, LIPID, CMP #### [facility] [address] [place] [address] Dr. Estrella CurtisChloride [Moles/Vol]104 mmol/NSxyjlr30-669CbaGreen Cross Hospital Comment on above:Performed By: #### TSH, T7, LIPID, CMP #### [facility] [address] [place] [address] Dr. Estrella CurtisCO2 [Moles/Vol]29.5 mmol/QDaccdl71.0-32.0[facility] Comment on above:Performed By: #### TSH, T7, LIPID, CMP #### [facility] [address] [address] [address] Estrella CurtisCreatinine [Mass/Vol]0.89 mg/dLNormal0.55-1.02The [facility] HospitalComment on above:Performed By: #### TSH, T7, LIPID, CMP #### [facility] [address] [address] [address] Estrella PavonGFR-AF MALIAN>60Normal>=60The [facility] HospitalComment on above:Performed By: #### TSH, T7, LIPID, CMP #### [facility] [address] [address] [address] Estrella PavonGFR-NON AF MALIAN>60Normal>=60The [facility] HospitalComment on above:Performed By: #### TSH, T7, LIPID, CMP #### [facility] [address] [address] [address]rella CurtisGlobulin (S) [Mass/Vol]3.2 g/dLNormalThe [facility] HospitalComment on above:Performed By: #### TSH, T7, LIPID, CMP #### [facility] [address] [address] [address] Estrella CurtisGlucose [Mass/Vol]97 mg/sYEagqkn72-556Fvk [facility] Comment on above:Performed By: #### TSH, T7, LIPID, CMP #### [facility] [address] [address] [address] Estrella CurtisPotassium [Moles/Vol]4.5 mmol/LNormal3.5-5.1The [facility] Comment on above:Performed By: #### TSH, T7, LIPID, CMP #### [facility] [address] [address] [address] Estrella CurtisProtein [Mass/Vol]7.5 g/dLNormal6.4-8.2The [facility] Comment on above:Performed By: #### TSH, T7, LIPID, CMP #### [facility] [address] [address] [address] Estrella CurtisSodium [Moles/Vol]141 mmol/DKxchha862-998Kmf [facility] Comment on above:Performed By: #### TSH, T7, LIPID, CMP #### [facility] [address] [address] [address] Estrella Chavez nitrogen [Mass/Vol]15.0 mg/dLNormal7.0-18.0The [facility] HospitalComment on above:Performed By: #### TSH, T7, LIPID, CMP #### [facility] [address] [address] [address] Estrella Chavez nitrogen/Creatinine [Mass ratio]16.9 mg/mgNormalThe [facility] HospitalComment on above:Performed By: #### TSH, T7, LIPID, CMP #### [facility] [address] [address] [address] Estrella Newton 53-15-2568RDA9.036 uIU/mLCritically high0.358-3.740The [facility] HospitalComment on above:Performed By: #### TSH, T7, LIPID, CMP ####[facility] [address] [address] Estrella CurtisCovid-19 PCR ([facility]VDBOST[facility])on 24-33-7175TGZR-CoV-2 (COVID-19) RNA FRANCISCO J+probe Ql (Unsp spec)Not detectedNormalNOT DETECTEDThe [facility] HospitalComment on above:Result Comment: When diagnostic testing is negative, the [...] for this test is supported by the [place] of Health and Human Service's declaration that circumstances exist to justify the emergency use of in vitro diagnostics for the detection and/or diagnosis of the virus that causes COVID-19. This EUA will remain in effect for the duration of the COVID-19 declaration justifying emergency of IVDs, unless it is terminated or revoked by the FDA (after which the test may no longer be used).Performed By: #### CVDTBH ####[facility] [address] [address]. Estrella Shelby AND B AGon 32-33-5161JNUFMUSGNAUJC BELOWNormak The [facility] on above:Result Comment: Negative for Flu B protein antigen. Infection due to Flu B cannot be ruled out. FluB antigen in the sample may be below the detection limit of the test.Performed By: #### INFLUAB #### [facility] [address] [place] [address] Dr. Estrella Shelby AGPositiveAbnormalNEGATIVE SEE COMMENTThe [facility] on above:Performed By: #### INFLUAB #### [facility] [address] [place] [address] Dr. Estrella CurtisINFLJEROD Lobato AGNegativeNormalNEGATIVE SEE COMMENTThe [facility] on above:Performed By: #### INFLUAB #### [facility] [address] [place] [address] Dr. Estrella CurtisINFLUPOSHSEE BELOWAvita Health System [facility] on above: Result Comment: NOTE: Live attenuated influenzae vaccine viruses can cause a positive result for a rapid influenza diagnostic test if administered up to 7 days prior to rapid testing.Performed By: #### INFLUAB #### [facility] [address] [place] [address] Dr. Estrella CurtisINTERNAL CONTROLSWithin Normal LimitsNormalWithin Normal Limits [facility] on above:Performed By: #### INFLUAB #### [facility] [address] [place] [address] Dr. Estrella Curtis Vital Signs Date TimeVital SignValuePerforming EuhujetitWlsghbkn51-45-6957 08:40-0400Body .1 cmMichael Duarte DO Work Phone: [facility]OS[facility] CenterZagsmztjqt22-57-5566 08:40-0400Body mass index (BMI) [Ratio]37.11 kg/j3Gdczzux Duarte DO Work Phone: [phone] [place], [place] 8382110-02-2025 08:40-0400Body .15 kgMichael Duarte DO Work Phone: [phone] [place], [place] 8382107-01-2025 13:21-0400Body .1 cmMichael Duarte DO Work Phone: [phone] [place], [place] 8382107-01-2025 13:21-0400Body mass index (BMI) [Ratio]36.44 kg/p0Snoqeks Duarte DO Work Phone: [phone] [place], [place] [id number] 13:21-0400Body khjyrm82.34 kgMichael Duarte DO Work Phone: [phone] [place], [place] 8382105-16-2025 14:55-0400Diastolic blood cdshiqmw88 mm[Hg]Steve Duarte [address] [place], [place] 8355505-16-2025 14:55-0400Heart rate73 /minMichaedonald Duarte [address]05-16-2025 14:55-0400Mean blood jyqnahnr082 mm[Hg]Steve Duarte [address] [place], [place] 8355505-16-2025 14:55-0400 Systolic blood ghaatyxg494 mm[Hg]Steve Duarte [address] [place], [place] 8355505-16-2025 14:54-0400Heart rate64 /minMichaedonald Duarte [address] [place], [place] 8355505-16-2025 14:54-7307LcJ5% (BldA) [Mass fraction]96 %Steve Duarte [address] [place], [place] 9493805-16-2025 14:54-0400 Diastolic blood hyupvnyr15 mm[Hg]Steve Duarte [address]05-16-2025 14:54-0400Mean blood twrvegzc887 mm[Hg]Steve Duarte [address]05-16-2025 14:54-0400 Systolic blood qjgnjjho223 mm[Hg]Steve Duarte [address] [place], [place] 8355505-16-2025 14:54-0400 Respiratory rate16 /minMichael Duarte [address] [place], [place] 8355505-15-2025 10:30-0400Body .1 cmMichael Duarte DO Work Phone: [phone] [place], [place] 8382105-15-2025 10:30-0400Body mass index (BMI) [Ratio]36.44 kg/f0Rlzxhhq Duarte DO Work Phone: [phone])[address] [place], [place] 8382105-15-2025 10:30-0400Body onvpeq83.34 kgMichael Duarte DO Work Phone: [phone] [place], [place] 8382112-17-2024 13:45-0500Body emnrru970.1 cmMichael Duarte DO Work Phone: [phone] [place], [place] 8382112-17-2024 13:45-0500Body mass index (BMI) [Ratio]36.44 kg/l2Kxkaluq Duarte DO Work Phone: [phone] [place], [place] 8382112-17-2024 13:45-0500Body lnvvmu74.34 kgMichael Duarte DO Work Phone: [phone] [place], [place] 8382112-10-2024 13:55-0500Body .1 cmMichael Duarte DO Work Phone: [phone] [place], [place] 8382112-10-2024 13:55-0500Body mass index (BMI) [Ratio]36.44 kg/l3Yehqzij Duarte DO Work Phone: [phone])[address] [place], [place] 8382112-10-2024 13:55-0500Body lsohdz35.34 kgMichael Duarte DO Work Phone: [phone] [place] [address]-03-2024 14:24-0500Body skkemf362.1 cmMichael Duarte DO Work Phone: [phone] [place] [address]-03-2024 14:24-0500Body mass index (BMI) [Ratio]36.44 kg/c3Lcduqex Duarte DO Work Phone: [facility] CenterSsionweotk17-76-0871 14:24-0500Body .34 kgMichael Duarte DO Work Phone: [facility] CenterVitqrrkinr35-01-1709 08:50-0500Blood Pressure LocationMichael NILL [facility]11-25-2024 08:50-0500 Diastolic blood xshjdawa69 mm[Hg]Steve NILL [address] [place], [place] 5157611-25-2024 08:50-0500Heart rate44 /minMichael NILL [facility]11-25-2024 08:50-0500Mean blood ihbelbri052 mm[Hg]Steve NILL [facility]11-25-2024 08:50-0500 Respiratory rate12 /minMichael NILL [address] [place], [place] 5157611-25-2024 08:50-8857IrD6% (BldA) [Mass fraction]98 %Steve NILL [facility]11-25-2024 08:50-0500 Systolic blood xtqiknan069 mm[Hg]Steve NILL [facility]11-25-2024 08:35-0500Blood Pressure LocationMichael NILL [facility]11-25-2024 08:35-0500 Diastolic blood peaelngn43 mm[Hg]Steve NILL [facility]11-25-2024 08:35-0500Heart rate48 /minMichael NILL [facility]11-25-2024 08:35-0500Mean blood mm[Hg]Steve NILL [address] [place], [place] 2876611-25-2024 08:35-0500 Respiratory rate14 /minMichael NILL [address] [place], [place] 8381011-25-2024 08:35-8984DqD6% (BldA) [Mass fraction]97 %Steve NILL [address] [place], [place] 8381011-25-2024 08:35-0500 Systolic blood lrnhaxiu061 mm[Hg]Steve NILL [address] [place], [place] 8381011-25-2024 08:30-0500Blood Pressure LocationMichael NILL [address] [place], [place] 8381011-25-2024 08:30-0500 Diastolic blood ugewagix21 mm[Hg]Steve NILL [address] [place], [place] 8381011-25-2024 08:30-0500Heart rate56 /minMichael NILL [address] [place], [place] 2876611-25-2024 08:30-0500Mean blood hfyryemq84 mm[Hg]Steve NILL [address] [place], [place] 2876611-25-2024 08:30-0500 Respiratory rate20 /minMichael NILL [address] [place], [place] 2876611-25-2024 08:30-9744MkN6% (BldA) [Mass fraction]95 %Steve NILL [address] [place], [place] 2876611-25-2024 08:30-0500 Systolic blood mm[Hg]Steve NILL [address] [place], [place] 2876611-25-2024 08:20-0500Body litfwebgmcx31.88 [degF]Steve NILL [address] [place], [place] 8381011-25-2024 08:15-0500 Respiratory rate13 /minMichael NILL [address]11-25-2024 08:10-0500 Respiratory rate14 /minMichael NILL [facility]11-25-2024 08:05-0500 Respiratory rate17 /minMichael NILL [facility]11-25-2024 07:10-0500Body nnkeadcrbun11.7 [degF]Steve NILL [facility]11-13-2024 15:05-0500Blood Pressure LocationMichael NILL 583-0644Ojajgf-SwxxzCos[facility]11-13-2024 15:05-0500Diastolic blood lchisfkj904 mm[Hg]Steve NILL 458-5938Fauxxu-GgkoqCoshocton [facility] Medical Center11-13-2024 15:05-0500Heart rate76 /minMichael NILL 921-2564Qgunwv-CvmzmCoshocton [facility] Center11-13-2024 15:05-0500Respiratory rate16 /minMichael NILL 112-0376Drsylr-XbjyqCoshocton [facility] Center11-13-2024 15:05-0500Systolic blood mm[Hg]Steve NILL 262-7693Llowlw-YwerxCoshocton Regional Medical Center10-14-2024 13:37-0400Body .62 kgFito Hill MD Work Phone: [phone]10-14-2024 13:37-0400Diastolic blood lyuntelg39 mm[Hg]Fito Hill MD Work Phone: [phone]10-14-2024 13:37-0400Heart rate 80 /minSmono Hill MD Work Phone: [phone]10-14-2024 13:37-0400Systolic blood koikhwwr636 mm[Hg]Fito Hill MD Work Phone: [facility]Nanos[facility] Ohixny31-68-0000 15:18-0400Blood Pressure LocationJENNIFER AURA [facility]05-07-2024 15:18-0400Diastolic blood lhhbismx49 mm[Hg]RAMONA CHAVARRIA [facility]05-07-2024 15:18-0400Heart rate61 /minJENNIFER AURA [facility]05-07-2024 15:18-0400Respiratory rate20 /minJENNIFER AURA [facility]05-07-2024 15:18-0400Systolic blood tzqwfjgu509 mm[Hg]RAMONA CHAVARRIA [facility] Encounters Encounter DateEncounter TypeCare ProviderFacilityStart: 03-19-2025 End: 67-77-2338Klszsat encounter procedureMicindira Duarte DO Work Phone: noms [facility]opaedicsComment on above:S/P total knee arthroplasty, right (Primary Dx)Start: 03-19-2025 End: 62-67-1379momjerouxySBOYTSN T POWERSNot AvailableStart: 02-05-2025 End: 31-93-9897mtopkivxodFefhjqu Kelbley PTANOMS [facility] Physical TherapyComment on above:Primary osteoarthritis of right knee (Primary Dx); Acute postoperative pain of right knee; Status post right knee replacementStart: 02-03-2025 End: 06-61-2985Zlfmhq flowsheetMelissa Kelbley [facility] Start: 02-03-2025 End: 17-81-6250Xpmwtp flowsheetMelissa Kelbley PT[facility] Start: 02-03-2025 End: 35-17-4626fqbpsrzsidRdwmndx Kelbley PTANOMS [facility] Physical TherapyComment on above:Primary osteoarthritis of right knee (Primary Dx); Acute postoperative pain of right knee; Status post right knee replacementStart: 01-28-2025 End: 97-06-0931Lxyddd flowsheetMelissa Kelbley [facility] Start: 01-28-2025 End: 02-43-7543Zhyqyo flowsheetMelissa Kelbley [facility] Start: 01-28-2025 End: 62-24-1938nulwrfjgbmZuxupkc Kelbley PTANOMS [facility] Physical TherapyComment on above:Primary osteoarthritis of right knee (Primary Dx); Acute postoperative pain of right knee; Status post right knee replacementStart: 01-26-2025 End: 28-89-4893Vnjkih flowsheetMelissa Kelbley [facility] Start: 01-26-2025 End: 99-01-4063Vxgfrw flowsheetMelissa Kelbley [facility] Start: 01-26-2025 End: 28-81-1540wzjzwunwjeUyfrhnh Kelbleguzman PTANOMS [facility] Physical TherapyComment on above:Primary osteoarthritis of right knee (Primary Dx); Acute postoperative pain of right knee; Status post right knee replacementStart: 01-21-2025 End: 16-07-2444Qiepwlskm to same day [facility]heather Steenink PTANOMS [facility] Physical TherapyComment on above:Primary osteoarthritis of right knee (Primary Dx); Acute postoperative pain of right knee; Status post right knee replacement; Aftercare following right knee joint replacement surgeryStart: 01-21-2025 End: 88-78-8807rbejpsboeuTyltqvlk Brink PTANOMS [facility] TherapyStart: 01-21-2025 End: 33-39-4024Vzakmt flowsheetMarshheather Brink PT[facility] Start: 01-21-2025 End: 50-58-5809Wffgvo flowsheetMarshheather Brink [facility] Start: 01-19-2025 End: 27-59-2412Wqqijq flowsheetMelissa Kelbley [facility] Start: 01-19-2025 End: 48-45-7784Ljusbi flowsheetMelissa Kelbley [facility] Start: 01-19-2025 End: 36-77-5206Uplwicekc to same day surgery centerMeldesmond Hutchison PTANOMS Joshua Physical TherapyComment on above:Primary osteoarthritis of right knee (Primary Dx); Acute postoperative pain of right knee; Status post right knee replacement; Aftercare following right knee joint replacement surgeryStart: 01-19-2025 End: 19-89-7771lxsurilxcdXacayht Kelbley PTANOMS [facility] TherapyStart: 01-14-2025 End: 41-16-2363Fdvske flowsheetMelissa Kelbley [facility] Start: 01-14-2025 End: 17-13-5912Wdaqjx flowsheetMelissa Kelbley [facility] Start: 01-14-2025 End: 38-43-3546nquxvitdemFesofyb Kelbley PTANOMS Joshua Physical TherapyComment on above:Primary osteoarthritis of right knee (Primary Dx); Acute postoperative pain of right knee; Status post right knee replacementStart: 01-12-2025 End: 65-54-3991Zzxygk flowsheetMelissa Kelbley [facility] Start: 01-12-2025 End: 69-62-6750Xedwoz flowsheetMelissa Kelbley [facility] Start: 01-12-2025 End: 35-56-8166dqrzipccxuIoubrjb Kelbley PTANOMS [facility] Physical TherapyComment on above:Primary osteoarthritis of right knee (Primary Dx); Acute postoperative pain of right knee; Status post right knee replacementStart: 01-08-2025 End: 33-10-9626Xffltb flowsheetMelissa Kelbley PTANOMS CI PTStart: 01-08-2025 End: 31-30-4533Cnsfxr flowsheetMelissa Kelbley PTANOMS CI PTStart: 01-08-2025 End: 05-27-8436txcqbceoyoVdrlmdi Kelbley PTANOMS CI PTComment on above:Primary osteoarthritis of right knee (Primary Dx); Acute postoperative pain of right knee; Status post right knee replacementStart: 01-06-2025 End: 57-37-0709Tyyrwq flowsheetMelissa Kelbley PTANOMS CI PTStart: 01-06-2025 End: 81-00-3191Fpaufa flowsheetMelissa Kelbley PTANOMS CI PTStart: 01-06-2025 End: 81-83-5087fxrwidbkgeGbojckl Kelbley PTANOMS CI PTComment on above:Primary osteoarthritis of right knee (Primary Dx); Acute postoperative pain of right knee; Status post right knee replacementStart: 01-02-2025 End: 44-78-9217Rakjnq flowsheetSammantha Gudino PTNOMS CI PTStart: 01-02-2025 End: 12-62-7530Oqjjnw flowsheetSammantha Gudino PTNOMS CI PTStart: 01-02-2025 End: 29-76-2375bfhritpninJslrpsous Gudino PTNOMS CI PTComment on above: Primary osteoarthritis of right knee (Primary Dx); Acute postoperative pain of right knee; Status post right knee replacementStart: 12-31-2024 End: 26-26-1172Nqituu flowsheetMelissa Kelbley PTANOMS CI PTStart: 12-31-2024 End: 94-92-9605Ovpbfe flowsheetMelissa Kelbley PTANOMS CI PTStart: 12-31-2024 End: 87-41-8390vupzooyfsmWwwrbua Kelbley PTANOMS CI PTComment on above:Primary osteoarthritis of right knee (Primary Dx); Acute postoperative pain of right knee; Status post right knee replacementStart: 12-29-2024 End: 36-21-4701Uulrfh flowsheetMelissa Kelbley PTANOMS CI PTStart: 12-29-2024 End: 23-74-5751Wzvxjn flowsheetMelissa Kelbley PTANOMS CI PTStart: 12-29-2024 End: 45-89-5950ntciaakzobVnyxeyi Kelbley PTANOMS CI PTComment on above:Primary osteoarthritis of right knee (Primary Dx); Acute postoperative pain of right knee; Status post right knee replacementStart: 12-26-2024 End: 93-29-9157Leqjal flowsheetSammantha Gudino PTNOMS CI PTStart: 12-26-2024 End: 49-58-5522Hzawlk flowsEitan Gudino PTNOMS CI PTStart: 12-26-2024 End: 28-08-0829Vmihvizqq to same day surgery Quan Gudino PTNOMS CI PTComment on above:Primary osteoarthritis of right knee (Primary Dx); Acute postoperative pain of right knee; Status post right knee replacement; Aftercare following right knee joint replacement surgeryStart: 12-26-2024 End: 14-98-1094gblqryopyrHpexclsyh Schneider PTNOMS CI PTStart: 12-24-2024 End: 02-04-2434Agszqb flowsNaomi Puga PTANOMS CI PTStart: 12-24-2024 End: 36-94-1622Uzyihw Ghada Puga PTANOMS CI PTStart: 12-24-2024 End: 88-50-2750eicsvwptmgTidmubu Lawrence PTANOMS CI PTComment on above:Primary osteoarthritis of right knee (Primary Dx); Acute postoperative pain of right knee; Status post right knee replacementStart: 12-22-2024 End: 59-78-0911Flltay Ghada Puga PTANOMS CI PTStart: 12-22-2024 End: 21-27-2338Yrxkgw Ghada Puga PTANOMS CI PTStart: 12-22-2024 End: 59-67-7313ldmkhrvsgpSdtrwit Lawrence PTANOMS CI PTComment on above:Primary osteoarthritis of right knee (Primary Dx); Acute postoperative pain of right knee; Status post right knee replacementStart: 12-18-2024 End: 83-42-4035Pqilid flowsNaomi Puga PTANOMS CI PTStart: 12-18-2024 End: 33-10-5345Hsjwet flowsheetSaud Puga PTANOMS CI PTStart: 12-18-2024 End: 57-74-6747haqwoqcwtnTvmadsd Lawrence PTANOMS CI PTComment on above:Primary osteoarthritis of right knee (Primary Dx); Acute postoperative pain of right knee; Status post right knee replacementStart: 12-17-2024 End: 13-30-3156klayfykkknRjgtszb Lawrence PTANOMS CI PTComment on above:Primary osteoarthritis of right knee (Primary Dx); Acute postoperative pain of right knee; Status post right knee replacementStart: 12-16-2024 End: 74-42-4939lytghjnsqvTOWGVKE T POWERSNot AvailableStart: 12-16-2024 End: 53-10-4008Uvidfhj encounter procedureMichael T Duarte DO Work Phone: noms NB ORTHOComment on above:S/P total knee arthroplasty, right (Primary Dx)Start: 12-16-2024 End: 14-94-5200fjpraqtnvmJEUPFOV T POWERSNot AvailableStart: 12-15-2024 End: 50-42-6109Sbkpwy flowsNaomi Puga PTANOMS CI PTStart: 12-15-2024 End: 14-50-5904Fzovqv flowsheetSaud Puga PTANOMS CI PTStart: 12-15-2024 End: 50-88-2908snmwyvzjrcRsmcvaq Lawrence PTANOMS CI PTComment on above:Primary osteoarthritis of right knee (Primary Dx); Acute postoperative pain of right knee; Status post right knee replacementStart: 12-12-2024 End: 90-02-4570Ngrpxo flowsheetMelissa Jaydenbley PTANOMS CI PTStart: 12-12-2024 End: 16-73-9291Ssicvo flowsheetMelissa Kelbley PTANOMS CI PTStart: 12-12-2024 End: 84-79-9316rebpjgpzayMkzfrom Laura PTANOMS CI PTComment on above:Primary osteoarthritis of right knee (Primary Dx); Acute postoperative pain of right knee; Status post right knee replacementStart: 12-10-2024 End: 21-64-6779Nwocdv flowsheetSammantha Gudino PTNOMS CI PTStart: 12-10-2024 End: 04-89-7795Pwohon flowsheetSammantha Gudino PTNOMS CI PTStart: 12-10-2024 End: 24-41-3609Nuqwfnmwv to same day surgery centerSammantha Gudino PTNOMS CI PTComment on above:Primary osteoarthritis of right knee (Primary Dx); Acute postoperative pain of right knee; Status post right knee replacement; Aftercare following right knee joint replacement surgeryStart: 12-10-2024 End: 47-77-2597pgcfggozujXslptpfij Shahab PTNOMS CI PTStart: 12-06-2024 End: 36-39-9535flpxgkypfhFFTGTGael Reza AvailableStart: 12-05-2024 End: 98-59-2042Mewpyzwx SupportKeldavid Briscoe PT Work Phone: noms SWS PTHComment on above:Primary osteoarthritis of right knee (Primary Dx); Acute postoperative pain of right knee; Status post right knee replacementStart: 12-04-2024 End: 64-14-9889rijijphbaoRCLFKGael Reza AvailableStart: 12-03-2024 End: 56-37-9428Efighkqi SupportCierra Briscoe PT Work Phone: noms SWS PTHComment on above:Primary osteoarthritis of right knee (Primary Dx); Acute postoperative pain of right knee; Status post right knee replacementStart: 12-01-2024 End: 44-61-9857Halqlmsu SupportCierra Briscoe PT Work Phone: noms SWS PTHComment on above:Primary osteoarthritis of right knee (Primary Dx); Acute postoperative pain of right knee; Status post right knee replacementStart: 11-28-2024 End: 32-02-7236Csutveeo SupportKeldavid Briscoe PT Work Phone: noms SWS PTHComment on above:Primary osteoarthritis of right knee (Primary Dx); Acute postoperative pain of right knee; Status post right knee replacementStart: 11-27-2024 End: 01-26-6701zipdstkklzFZOGOGael Reza AvailableStart: 11-26-2024 End: 27-80-0351Yzrequwg SupportCierra Briscoe PT Work Phone: noms SWS PTHComment on above:Primary osteoarthritis of right knee (Primary Dx); Acute postoperative pain of right knee; Status post right knee replacementStart: 11-25-2024 End: 17-15-9743ufnmktlyxrCHZEJGael Reza AvailableStart: 11-24-2024 End: 96-55-9650Jiolbqcx SupportCierra Briscoe PT Work Phone: noms SWS PTHComment on above:Primary osteoarthritis of right knee (Primary Dx); Acute postoperative pain of right knee; Status post right knee replacementStart: 11-22-2024 End: 64-57-6910Jmktutpw SupportCierra Briscoe PT Work Phone: noms SWS PTHComment on above:Primary osteoarthritis of right knee (Primary Dx); Acute postoperative pain of right knee; Status post right knee replacementStart: 11-20-2024 End: 48-39-1864Esygbklf SupportCierra Briscoe PT Work Phone: noms SWS PTHComment on above:Primary osteoarthritis of right knee (Primary Dx); Acute postoperative pain of right knee; Status post right knee replacementStart: 11-18-2024 End: 29-57-5025Zbttmqmr SupportCierra Briscoe PT Work Phone: noms SWS PTHComment on above:Primary osteoarthritis of right knee (Primary Dx); Acute postoperative pain of right knee; Status post right knee replacementStart: 11-17-2024 End: 41-63-1807Odmluqjhh Result EncounterMichael T Duarte DO Work Phone: noms External Department UnsolicitedStart: 11-17-2024 End: 73-01-7407Lsxpugrid Result EncounterMichael T Duarte DO Work Phone: noms External Department UnsolicitedStart: 11-17-2024 End: 00-54-9410Wxqbjfoil to same day surgery centerMichael T Duarte [facility] Start: 11-17-2024 End: 57-31-3516xkrxfqvmyhJtvmwin T PowersFacility:FTMCStart: 11-12-2024 End: 07-65-7228Jgtoun flowsheetJeelayne Mcclure PT Work Phone: noms PTStart: 11-12-2024 End: 56-86-2897Lqesdg flowsheetBruceremy Lucy Mcclure PT Work Phone: NOMS CI PTStart: 11-12-2024 End: 15-00-4668ufdhucifkuSgkwsi T Blackston PT Work Phone: NOMS CI PTComment on above:Primary osteoarthritis of right knee (Primary Dx)Start: 10-31-2024 End: 40-26-9755dqctjfmneeLygoucs T PowersFacility:FTMCStart: 10-31-2024 End: 02-43-0146Qjtjuve encounter procedureMichael T Duarte [facility] Start: 10-31-2024 End: 15-25-3963Xjveylorh Result EncounterMichael T Duarte DO Work Phone: [phone] External Department UnsolicitedStart: 10-31-2024 End: 63-32-8398Axryygnhb Result EncounterMichael T Duarte DO Work Phone: [phone] External Department UnsolicitedStart: 10-30-2024 End: 47-70-5878Vyupqp flowsheetMichael T Duarte DO Work Phone: [facility]S ORTHOStart: 10-30-2024 End: 43-97-6425Ppepcc flowsheetMichael T Duarte DO Work Phone: [phone] ORTHOStart: 10-30-2024 End: 61-09-6762hmiqesljwaWSIKJAF T POWERSNot AvailableStart: 10-30-2024 End: 73-50-3856Mwgydot encounter procedureMichael T Duarte DO Work Phone: [phone] NB ORTHOComment on above:Pre-op testing (Primary Dx); Bilateral primary osteoarthritis of kneeStart: 10-30-2024 End: 99-61-9539Adcogfk encounter statusMichael T Duarte DO Work Phone: [phone] HealthcareStart: 10-30-2024 End: 89-99-9818yjeajhtiksEJSWREN T POWERSNot AvailableStart: 06-03-2024 End: 85-44-2326Fnwytm flowsheetMichael T Duarte DO Work Phone: [facility] ORTHOStart: 06-03-2024 End: 56-75-2741Cvvilb flowsheetMichael T Duarte DO Work Phone: [facility] ORTHOStart: 06-03-2024 End: 56-76-5386dhpripyzvgQYRZPTY T POWERSNot AvailableStart: 06-03-2024 End: 23-45-6311Znohfpu encounter procedureMichael T Duarte DO Work Phone: [phone] NB ORTHOComment on above:Bilateral primary osteoarthritis of knee (Primary Dx)Start: 05-27-2024 End: 24-75-1428Newhxt flowsheetMichael T Duarte DO Work Phone: [facility] ORTHOStart: 05-27-2024 End: 71-71-7495Cffwfy flowsheetMichael T Duarte DO Work Phone: [facility] ORTHOStart: 05-27-2024 End: 85-27-2960umgqyyirytRMDCLWA T POWERSNot AvailableStart: 05-27-2024 End: 00-01-8878Fycuadf encounter procedureMichael T Duarte DO Work Phone: [phone] NB ORTHOComment on above:Bilateral primary osteoarthritis of knee (Primary Dx)Start: 05-20-2024 End: 94-20-7546Trjpbho encounter procedureMichael T Duarte DO Work Phone: [facility] NB ORTHOComment on above:Bilateral primary osteoarthritis of knee (Primary Dx)Start: 05-20-2024 End: 67-25-7780pvtlduptcoSOIPRYX T POWERSNot AvailableStart: 05-12-2024 End: 07-39-3694kgtqaoawopNkkcudr R NILLFacility:FTMCStart: 05-12-2024 End: 99-45-7943Sahyybf encounter procedureMichael R NILL [facility] Start: 04-30-2024 End: 54-19-4311mdkgqlbdcbIpysggy R NILLFacility: tart: 04-30-2024 End: 07-52-4697Ajctajy encounter procedureMichael R NILL [phone]-Nxonl [facility] [place] Start: 04-30-2024 End: 85-32-0816Tknwmxbjt encounterMichael T Duarte DO Work Phone: noms NB ORTHOStart: 21-92-2104ahwmcpltpjZPTTGXD M HOY Mercguzman [facility] HospitalStart: 50-75-9429fzjltfayirWgiopuh PowersFacility:[facility] Centertart: 03-31-2024 End: 38-11-4999ijdybiawznDSVPSQ Loerna [facility]NA[facility] Ambulatory PPGStart: 03-31-2024 End: 29-33-6473Mmhqzn outpatient new 45 minutesSophia Lorena Hill MD Work Phone: [facility] FremontComment on above: Pelvic pain (Primary Dx); Pelvic congestion syndromeStart: 03-17-2024 End: 96-14-2769tmbtbrdwvjOHRISOX M HOYMercy Groveland HospitalStart: 03-17-2024 End: 75-73-0466Nidfwuzyys hospital visit by physicianSonia Morelos PTAMTHZ Physical TherapyComment on above:ArrivedStart: 03-03-2024 End: 90-73-0226lkghxkopfyPNABGFV Carol HARSHILIrais Torres HospitalStart: 03-03-2024 End: 25-68-1505Qwarzrdhab hospital visit by physicianSonia Morelos PTAMTHZ Physical TherapyComment on above:ArrivedStart: 02-25-2024 End: 87-49-4289Hacwifwbo encounterKathe PETERSroMedwilmer [facility]st Vascular FremontStart: 94-59-8588zfvdkqpbxjGUTOAV Wyatt Bright [facility] HospitalStart: 02-11-2024 End: 44-63-5498adxtbpdixyQVVYULV M HOYMercy Groveland HospitalStart: 02-11-2024 End: 25-94-9824Sjuuabszyq hospital visit by Schuyler Morelos PTAMTHZ Physical TherapyComment on above:ArrivedStart: 01-28-2024 End: 08-50-3879dggbjijcbgQVQHTFTHERESA Torres HospitalStart: 01-14-2024 End: 36-72-8759uthipglfpmXSYSORE M HOYMercy Tiffin HospitalStart: 01-14-2024 End: 52-14-2085Xyzwctlxaq hospital visit by Schuyler Morelos PTAMTHZ Physical TherapyComment on above:ArrivedStart: 01-07-2024 End: 19-39-3145obmukimndvYCMMXJHCrispin Bellfin HospitalStart: 12-26-2023 [facility] PPGStart: 12-05-2023 End: 89-38-6119Gyfbmcqgwi hospital visit by Jason Yoo APRN - CNM Work Phone: mthz LaboratoryStart: 12-05-2023 End: 67-16-5748njicmwgfcmXLSVY MICHELLE SMITHMercy Groveland HospitalStart: 11-29-2023 End: 32-73-3190wwxdfvjadyKLOZD MICHELLE SMITHMercy Groveland HospitalStart: 11-29-2023 End: 96-09-9138dqnkxovmypHMIDNDR M HOYMercy [facility]-Easttart: 10-23-2023 End: 39-49-5065Zap Drop offJENNIFER E AURA [facility] Start: 10-23-2023 End: 56-01-0249Joqntfv encounter procedureJENNIFER E AURA [facility] start: 10-17-2022 End: 56-88-8755qckljdgpbuUK MAGGIE BALDWIN .Facility:E2Mespm: 00-00-0023Ftmlgtdkz for general adult medical examination without abnormal findingsDR MAGGIE BALDWIN . [facility]Start: 10-06-2022 End: 10-05-3307lldjurvomgJJ MAGGIE HOY .Facility:J5Ppmqw: 10-06-2022 End: 08-84-9446Vulsntmkx for general adult medical examination without abnormal findingsDR MAGGIE HOY .Facility:V3Htcle: 08-29-2022 End: 38-88-5570wqgqabygdpBW MAGGIE HOY .Facility:B6Hsjuw: 05-25-2022 End: 37-29-4867pmlzwuclosDW MAGGIE HOY .Facility:C8Svmoh: 05-17-2022 End: 64-66-4608xfyovbzdngCV MAGGIE HOY .Facility:C8Sqmbo: 11-30-2021 End: 66-31-1367eojrmwxddlXU MAGGIE HOY .Facility: Procedures DateProcedureProcedure DetailPerforming ClinicianStart: 92-26-8752Pdamvauggn examination knee 3 viewsMichael T Duarte DO Work Phone: Start: 66-08-7072Gvenybxurf examination knee 3 views Steve T Duarte DO Work Phone: Start: 27-92-8320LB KNEE 1 OR 2 VIEWS RIGHTMichael T Duarte DO Work Phone: Start: 17-89-5534Dsdth knee replacementMichael Duarte Start: 53-31-9886UO WITH CULT RFLXMichael T Duarte DO Work Phone: Start: 10-60-4576Rtppxlndpx examination knee 3 views Steve T Duarte DO Work Phone: Start: 93-00-8081Vboxsqmnjdxxen aspir&/inj major jt/bursa w/o usMichael T Duarte DO Work Phone: Start: 35-04-2938Rcgxnwlgwpjchn aspir&/inj major jt/bursa w/o usMichael T Duarte DO Work Phone: Start: 27-28-5849Blxrnmfbegtxgj aspir&/inj major jt/bursa w/o usMichael T Duarte DO Work Phone: Start: 05-20-2024 End: 67-48-0312Rgohqraios examination knee 3 viewsMichael T Duarte DO Work Phone: Start: 85-93-7183WrbankdztseXiajzkz Duarte DO Work Phone: Start: 13-31-7604TzqczwwjiadOtisrak NILL Start: 91-82-9277Ibuksdmzdm bloodSulindsay Truongelle Yoo AIR POLLUTION CONTROL ENGINEER - CN Work Phone: Start: 82-37-6630Pkcaeizrgeo observation [Identifier] in Cervix by Cyto stainSonia Morelos PTAStart: 87-99-0322OkmhqgfcexoXrypote Duarte DO Work Phone: Start: 21-70-4423Kzmtpgowqxzuvwaai with dilation of urethral strictureJENNIFER AURA Start: 68-21-0497Gtsyuvhksnuslboqb with dilation of urethral strictureJENNIFER AURA Ligation of fallopian tubeJENNIFER AURA Repair of musculotendinous cuff of shoulderMichael NILL Superficial parotidectomyMichael NILL Plan of Treatment DateCare ActivityDetailAuthorStart: 57-49-7548Ojnlpmopp for malignant neoplasm of colonNOMS HealthcareStart: 31-68-8669Pbqxnyrcw for malignant neoplasm of cervixNOMS HealthcareStart: 78-36-1512Lkmaponlz for malignant neoplasm of cervix Pap SmearNOMS HealthcareStart: 11-17-2025 End: 97-25-3143Rwtoomj encounter /02/2026 8:30 AM EDT Office Visit [facility] [address] [place] [id number] Steve Duarte, DO [address] [place] [address] [facility]opaedicsStart: 03-31-2025 Tobacco ScreeningTobacco ScreeningGood Samaritan Hospitalca [facility] SystemStart: 03-19-2025 End: 04-52-2549Qltpcbk encounter procedureNOMS NB ORTHOStart: 02-16-2025 Influenza vaccinationInfluenza Vaccine (#1)[facility]S HealthcareStart: 02-05-2025 End: 51-77-8599vcpndsatbo30/21/2025 9:00 AM EDT Treatment [facility] [address] [place], [place] Katherine Hutchison PTANOMS [place] Physical TherapyStart: 02-03-2025 End: 46-71-7465knlglxhpkh57/19/2025 7:30 AM EDT Treatment [facility] [address] [place], [place] Katherine Hutchison PTANOMS [place] Physical TherapyStart: 01-28-2025 End: 09-31-6914zxgmridfem16/13/2025 7:30 AM EDT Treatment [facility] [address] [place], [place] Katherine Hutchison PTANOMS [place] Physical TherapyStart: 01-26-2025 End: 50-59-7524lmhccakiem40/11/2025 7:30 AM EDT Treatment [facility] [address] [place], [place] Katherine Hutchison PTANOMS [place] Physical TherapyStart: 01-21-2025 End: 07-40-4040Plxlafnqd to same day surgery jrigzu4001/21/2025 4:00 PM EDT Treatment [facility] [place] [facility] [address] [place] [address] Mariely Ugarte PTA Primary osteoarthritis of right knee (Primary Dx); Acute postoperative pain of right knee; Status post right knee replacement; Aftercare following right knee joint replacement surgeryNOMS [place] Physical TherapyComment on above:Primary osteoarthritis of right knee (Primary Dx); Acute postoperative pain of right knee; Status post right knee replacement; Aftercare following right knee joint replacement surgeryStart: 01-21-2025 End: 73-18-8485zaypuyosmaQTEU [place] [facility] TherapyStart: 01-19-2025 End: 26-41-4113eqtozzjtui62/04/2025 1:30 PM EDT Treatment [facility] [place] [facility] [address] [place], [id number] Kelbley Katherine, HEDIS REVIEW NURSE ArrivedNOMS [place] Physical TherapyComment on above:ArrivedStart: 01-19-2025 End: 28-95-4309kvivzayyjw82/04/2025 7:30 AM EDT Treatment [facility] [address] [place], [id number] Nikkie Hutchisonissa, PTANOMS [place] Physical TherapyStart: 01-14-2025 End: 71-36-3352ofgvkkalpzYYXG CI PTStart: 01-12-2025 End: 40-11-1581snoylipwev99/28/2025 10:00 AM EDT Treatment [facility] [address] [facility] [address] [place] [address] Kelbley, Katherine, HEDIS REVIEW NURSE NOMS CI PTStart: 01-08-2025 End: 16-90-0823pyzpmkzycb62/24/2025 11:00 AM EDT Treatment [facility] [address] [facility] [address] [place] [address] Kelbley, Katherine, HEDIS REVIEW NURSE NOMS CI PTStart: 01-06-2025 End: 08-73-9959lijyhwduaq54/22/2025 3:00 PM EDT Treatment [facility] [address] [facility] [address] [place] [address] Kelbley Katherine, HEDIS REVIEW NURSE NOM[facility] CI PTStart: 01-02-2025 End: 05-80-7081ebxfmxmkhu55/18/2025 7:30 AM EDT Treatment [facility] [address] [facility] [address] [place] [address] Natividad Gudino PTNOMS CI PTStart: 12-31-2024 End: 95-20-6749bmmarraqsyJQWP CI PTStart: 12-29-2024 End: 11-44-0450klrlbxzopqSYWS CI PTComment on above:ArrivedStart: 12-26-2024 End: 58-47-7474Repurffev to same day surgery zpqhya8012/26/2024 8:00 AM EDT Treatment [facility] [address] [facility] [address] [place] [address] Natividad Gudino, PT Primary osteoarthritis of right knee (Primary Dx); Acute postoperative pain of right knee; Status post right knee replacement; Aftercare following right knee joint replacement surgeryNOMS CI PTComment on above:Primary osteoarthritis of right knee (Primary Dx); Acute postoperative pain of right knee; Status post right knee replacement; Aftercare following right knee joint replacement surgeryStart: 12-26-2024 End: 42-79-7663abayjycehk59/11/2025 8:00 AM EDT Treatment [facility] [address] [facility] [address] [place] [address] Natividad Gudino PTNOMS CI PTStart: 12-24-2024 End: 15-92-4462szidolnhhwNIFB CI PTComment on above:ArrivedStart: 12-22-2024 End: 34-54-2546tnnxtiocllDRON CI PTComment on above:ArrivedStart: 12-18-2024 End: 10-14-0229yscjzuxcyu22/03/2025 8:00 AM EDT Treatment [facility] [address] [facility] [address] [place] [address] Saud Puga PTANOMS CI PTStart: 12-17-2024 End: 87-44-5373fsunulhbzj40/02/2025 7:30 AM EDT Treatment [facility] [address] [facility] [address] [place] [address] Saud Puga PTANOMS CI PTStart: 12-16-2024 End: 47-44-8220Rdkmoij encounter procedureNOMS NB ORTHOStart: 12-15-2024 End: 11-77-2960komrtneqtb68/30/2025 7:30 AM EDT Treatment [facility] [address] [facility] [address] [place] [address] Saud Puga PTANOMS CI PTStart: 12-12-2024 End: 84-66-6491cmtplujrdqLITS CI PTComment on above:Primary osteoarthritis of right knee (Primary Dx); Acute postoperative pain of right knee; Status post right knee replacementStart: 12-10-2024 End: 92-41-6137fyaubvhfpj50/25/2025 9:00 AM EDT Treatment [facility] [address] [facility] [address] [place] [address] Natividad Gudino PTNOMS CI PTStart: 50-02-3965Gqiccjowxb ScreenDepression ScreenBON KNOX COMMUNITY HOSPITALStart: 11-12-2024 End: 35-80-0346qnfasrsefu92/28/2025 10:00 AM EDT Evaluation [facility] [address] [facility] [address] [place] [address] Madison Mcclure, PT [address] [facility] [address] [place] [address] NOMS CI PTStart: 10-30-2024 End: 90-53-7798Qhgnpydkar complete panel - UrineUrinalysis with reflex microscopic Lab Routine Pre-op testing Expected: 10/30/2024, Expires: 10/30/2025 [facility] Work Phone: Comment on above:Expected: 10/30/2024, Expires: 10/30/2025Start: 10-30-2024 End: 74-27-1140Zatyjme encounter ygmpdotvc97/15/2025 10:00 AM EDT Office Visit [facility] [address] [place] [address] Steve Duarte, DO [address] [place] [address] ArrivedNOMS NB ORTHOComment on above:ArrivedStart: 06-03-2024 End: 31-79-8236Sbaaxud encounter kspqnathz68/17/2024 1:45 PM EST Procedure Visit [facility] [address] [place] [address] Steve Duarte, DO [address] [place] [address] NOMS NB ORTHOStart: 05-27-2024 End: 51-53-2743Zqxbcef encounter qrcxpxjha09/10/2024 1:45 PM EST Procedure Visit [facility] [address] [place] [address] Steve Duarte, DO [address] [place] [address] NOMS NB ORTHOStart: 05-20-2024 End: 61-39-2773Brwyhmj encounter pktimmatu30/03/2024 2:15 PM EST Office Visit [facility] [address] [place] [address] Steve Duarte, DO [address] [place] [address] NOMS NB ORTHOStart: 05-12-2024 End: 96-38-9803Ptafwve encounter csgmqkotu59/25/2024 2:15 PM EST Office Visit [facility] [place] [address] [place] [address] [place] [address] [place] [address] [facility]ontStart: 05-04-2024 End: 17-64-0430Tcwyvgq encounter ppnejivvi98/17/2024 7:30 AM EST Appointment [facility] MRI [address] [place] [address] Fito Hill MD [address] [facility] [address] [place] [address] [facility] - MRIStart: 05-01-2024 End: 04-91-4075LNM Pelvis vesselsMRV pelvis pelvic congestion with and without contrast Imaging Routine Pelvic congestion syndrome Pelvic pain Expected: 05/01/2024 (Approximate), Expires: 09/29/2024[facility] Work Phone: Comment on above:Expected: 05/01/2024 (Approximate), Expires: 09/29/2024Start: 04-07-2024 End: 70-67-6381Yfxshgn encounter cqpxpijnd59/21/2024 2:15 PM EDT Appointment [facility] Physical Therapy [address] [place], [place] [id number] Sonia Morelos PTAMTHZ Physical TherapyStart: 03-17-2024 End: 71-42-6742Yzerueb encounter jynxkjjmd84/30/2024 2:30 PM EDT Appointment [facility] Physical Therapy [address] [place], [place] [id number] Sonia Morelos PTAMTHZ Physical TherapyStart: 02-25-2024 End: 47-93-7862Vqexzho encounter wkevulxeb66/09/2024 3:30 PM EDT Appointment [facility] Physical Therapy [address] [place] [address] Sonia oMrelos PTAMTHZ Physical TherapyStart: 16-14-4996KENLW-19 Vaccine ( season)COVID-19 Vaccine ( season)[facility]Start: 83-08-5556Qpqsjlvka vaccinationInfluenza VaccineWilson Medical Centertart: 01-28-2024 End: 21-26-1807Pdvubow encounter xscistvuu31/12/2024 4:15 PM EDT Appointment [facility] Physical Therapy [address] [place] [address] Sonia Morelos, PTAMTHZ Physical TherapyStart: 39-16-2163Pliriiubb vaccinationNORTON COMMUNITY HOSPITALStart: 17-47-8686WIONQ-19 Vaccine ( season)COVID-19 Vaccine ( season)[facility]ITALStart: 24-19-9143Rrqfolxyack Syncytial Virus (RSV) or age 60 yrs+ (1 - 1-dose 60+ series) Respiratory Syncytial Virus (RSV) or age 60 yrs+ (1 - 1-dose 60+ series)[facility]ITALStart: 07-34-3918Uxxnrgogt for malignant neoplasm of breastBreast cancer [facility] CenterStart: 87-94-9953Wgjpjwqjb for malignant neoplasm of breastMammogramNOMS HealthcareStart: 02-16-2010 Administration of varicella zoster vaccineZoster (Shingles) Vaccine (1 of 2) [facility] Centertart: 71-01-2225Vvxyybctfswb Vaccine: 65+ Years (1 of 1 - PCV)Pneumococcal Vaccine: 65+ Years (1 of 1 - PCV)[facility] HealthcareStart: 38-03-0165Vwbyvzxq vaccine (1 of 2)Shingles vaccine (1 of 2)[facility]ITALStart: 48-07-4046Tizkqthdu for malignant neoplasm of colonBON KNOX COMMUNITY HOSPITALStart: 72-75-6329Efsuisth screenDiabetes [facility] CenterStart: 71-91-0772Uektozjpn for malignant neoplasm of cervixPap smearNORTON COMMUNITY HOSPITALStart: 82-65-3424QToH,Tdap and Td Vaccines (1 - Tdap) DTaP,Tdap and Td Vaccines (1 - Tdap)[facility] SystemStart: 02-16-1979 DTaP/Tdap/Td vaccine (1 - Tdap)DTaP/Tdap/Td vaccine (1 - Tdap)[facility]ITALStart: 80-70-6378Ugbda BMI ScreeningAdult BMI ScreeningProMedica Health SystemStart: 30-87-7370Uqkocqayk C screeningHepatitis C [facility] CenterStart: 43-38-7610EFA screeningHIV screenBON KNOX COMMUNITY HOSPITALStart: 45-33-4064Rrnrbrbdyr ScreeningDepression ScreeningCincinnati Children's Hospital Medical [facility] SystemStart: 68-11-7903Jfzggkp ScreeningTobacco ScreeningProMount Carmel Health Systemtart: 63-31-5652Gpogy panelLipidsNORTON COMMUNITY HOSPITALStart: 96-08-8249Uahwrpgmn for malignant neoplasm of colonEllis Fischel Cancer Center End: 18-22-0526YZ Abdomen and Pelvis W contrast PO and WO and W contrast IVMRV abdomen pelvic congestion with and without contrast Imaging Routine Pelvic congestion syndrome Pelvic pain 1 Occurrences starting 03/31/2024 until 09/29/2024[facility] SystemComment on above:1 Occurrences starting 03/31/2024 until 09/29/2024XR Knee - right 3 ViewsXR knee 3 views right Imaging Routine Bilateral primary osteoarthritis of knee 10/30/2024 11:39 AM [facility] Immunizations Immunization DateImmunizationNotesCare RyzymwpaEbplgvoq79-00-8558xxifpgckq virus vaccine, unspecified formulationMichael NILL [phone]-JplpcCoshocton Regional Medical Center11-30-2022 SARS-CoV-2 (COVID-19) mRNA-1273 vaccineMichael NILL [phone]-OdbusCoshocton Regional Medical Center10-13-2022 influenza virus vaccine, unspecified formulationRivendell Behavioral Health Services11-05-2021SARS-CoV-2 (COVID-19) mRNA-1273 vaccineMichael NILL [phone]-XtetjCoshocton Regional Medical Center03-08-2021 SARS-CoV-2 (COVID-19) Ad26 vaccine, recombinantMichael NILL [phone]-HwkiuCoshocton Regional Medical Center Payers DatePayer CategoryPayerPolicy ID2025MedicareMEDICARE Member Subscriber Plan / Payer (Effective 2025-Present) Name: Michelle Rodriguez Member ID: [id number] Relation to Subscriber: Self Name: Michelle Rodriguez Subscriber ID: [id number] Payer ID: STATE Group ID: Not on file Type: Medicare Address: [facility] [id number] [id number] 2024Private Health Insurance [id number] 2.16.840.1.323902.3.57[id number] 2.16.840.1.909686.3.57[id number] 2.16.840.1.371958.3.57[id number] 2.16.840.1.194212.3.57[id number] 2.16.840.1.490435.3.579.[id number] 2.16.840.1.888521.3.57[id number] 2.16.840.1.191142.3.57[id number] 2.16.840.1.271759.3.57[id number] 2.16.840.1.117710.3.579.[id number] 2.16.840.1.998114.3.57[id number] 2.16.840.1.575248.3.579.2.[id number] 2.16.840.1.795685.3.57[id number] 2.16.840.1.987158.3.579.2.90517-62-7052Ddmnhgq07540008 2.16.840.1.591691.3.579.[id number] 2.16.840.1.557316.3.57[id number] 2.16.840.1.672350.3.57[id number] 2.16.840.1.564896.3.57[id number] 2.16.840.1.150212.3.579.2.9[id number] 2.16.840.1.734965.3.579.[id number] 2.16.840.1.089386.3.579.2.74364-88-9726Wzfbqzt90106890 2.16.840.1.632185.3.579.2.36950-31-9956Vfzpzwv91798216 2.16.840.1.249595.3.579.2.45163-75-3088Dbswezu55892835 2.16.840.1.960571.3.579.2.56670-37-0397Ibybchm79366644 2.16.840.1.516244.3.579.2.326392-21-5892Hwmzbae39478391 2.16.840.1.789911.3.579.2.32[id number] 2.16.840.1.605369.3.579.2.165911-34-3201Kjzeegv29574427 2.16.840.1.782303.3.579.2.945386-17-2088Kglwwnz15616172 2.16.840.1.788228.3.579.2.287338-03-4122Hbaipgi84567544 2.16.840.1.301253.3.579.2.183785-43-4304Hlprqnn04606106 2.16.840.1.784392.3.579.2.965140-39-2676Tlnyqvu35876210 2.16.0.1.564931.3.579.2.019276-27-1118Rbsgmgf72816533 2.160.1.647279.3.579.2.224974-68-2324Ugjadnb26455190 2.160.1.347785.3.579.2.261735-87-4232Rmycyek53479731 2.16.0.1.000127.3.579.2.226355-40-6555Mgpshes92677883 2.16.0.1.431958.3.579.2.947048-12-1247Crztdcl64242441 2.160.1.163750.3.579.2.722243-38-2578Wsomfxu20090176 2.16.0.1.467755.3.579.2.075409-12-8020Bovuqzn61424935 2.16.0.1.817700.3.579.2.284870-85-9069Mmdslvx39235706 2.16.0.1.711560.3.579.2.584942-70-9416Eunifnc47980550 2.160.1.657674.3.579.2.586528-87-1492Kuazdxz63069142 2.16.840.1.070571.3.579.2.853919-85-2096Ieanojw61482689 2.16.840.1.726164.3.579.2.379234-26-1944Nhfhlwl80844474 2.16.840.1.533901.3.579.2.254154-80-0603Ofphqfp36233995 2.16.840.1.937318.3.579.2.684436-07-1140Fnyraml44377024 2.16.840.1.712660.3.579.2.739447-97-2718Lkbvlji36759004 2.16.840.1.035382.3.579.2.342397-97-2977Wbuvroo27438352 2.16.840.1.161111.3.579.2.057641-90-3379Gwtllck64092768 2.16.840.1.261922.3.579.2.898592-30-8993Ksyfwya89748822 2.16.840.1.125259.3.579.2.239437-64-8670Kgbgcvb55585728 2.16.840.1.260158.3.579.2.987675-43-4449Iryuvja58783582 2.16.840.1.817880.3.579.2.561734-08-2474Rqycdzm66081034 2.16.840.1.345339.3.579.2.145500-49-0630Muzqbbp26543702 2.16.840.1.215628.3.579.2.030100-59-2310Qydxlbj58433911 2.16.840.1.659405.3.579.2.055561-93-4238Owhlmpa61502186 2.16.840.1.374525.3.579.2.979258-81-5214Fbzgrkq04145362 2.16.840.1.711383.3.579.2.836275-23-5187Aegshql02322385 2.16.840.1.499430.3.579.2.268318-25-6797Gyhosdu1394204 2.16.840.1.486589.3.579.2.380416-80-2529Qnklzbj7507242 2.16.840.1.835039.3.579.2.935720-17-1622Zydcrka4552031 2.16.840.1.797558.3.579.2.577866-68-5322Owbowkp7713534 2.16.840.1.044460.3.579.2.362573-08-5838Tyhzwiv6413374 2.16.840.1.266005.3.579.2.304661-92-7519Xvekkxq3346258 2.16.840.1.264958.3.579.2.300379-96-8701Heujtnd0002228 2.16.840.1.836117.3.579.2.588531-49-7809Aopxyvh3332825 2.16.840.1.601803.3.579.2.593459-71-5053Djecsqc Health Mvvaaebsn223790396 03-22-5394Ymoe-dct823406384Svlrjga5262800 2.16.840.1.347765.3.579.2.593 Social History DateTypeDetailFacilityStart: 06-26-2023 End: 18-13-2528Xxavwwz smoking statusEx-smoker (finding)[facility]23 End: 42-25-0643Wpo Assigned At BirthFemalCleveland ClinicTobacco smoking statusNeverCoshocton Regional Medical [facility] End: 46-17-5809Poprrxv of tobacco useCurrent smokerKeenan Private Hospital End: 48-62-0432Rojjvlx of tobacco useCigarette SmokerKeenan Private Hospital Start: 06-26-2023 End: 71-46-2824Wosixxm use and exposureSmokeless tobacco non-userDIGNITY HE[facility] ST[facility] Booktrope [facility] CENTERStart: 09-06-2023 End: 22-02-5975Kjaztst of Social functionCHOATE MEMORIAL HOSPITALEntech Solar [facility] CENTERFloobits [facility]ENTERStart: 13-35-1075Tst assigned at birthNot on fileCHOATE MEMORIAL HOSPITALTranSwitch [facility]ENTERStart: 57-93-8881Lqmtxhk smoking status NHISNever smoked tobaccoCHOATE MEMORIAL HOSPITALEntech Solar [facility] CENTERFloobits [facility]ENTERStart: 18-20-9646Crxeftf intakeCurrent drinker of alcohol (finding)CHOATE MEMORIAL HOSPITALRed Karaoke(I/We) worried whether (my/our) food would run out before (I/we) got money to buy more.Never trueCHOATE MEMORIAL HOSPITALRed KaraokeAt any time in the past 12 months, were you homeless or living in intermediate [including now]?NoCHOATE MEMORIAL HOSPITALEntech Solar [facility] CENTERFloobits [facility]ENTERStart: 99-48-8411Tltnezs CommentsocialCHOATE MEMORIAL HOSPITALEntech Solar [facility] CENTERFloobits [facility] CENTERTobacco smoking status NHISTobacco smoking consumption unknownWilson Medical Centerexual OrientationKettering Health Behavioral Medical Center Start: 74-52-8402DmuIflakr (finding)[facility] Medical Equipment Procedure CodeEquipment CodeEquipment Original TextEquipment IdentifierDatesKNEE TOTAL ARTHROPLASTY Steve Duarte DO 11/17/24 Non Biological Knee R {[id number]{[id number]{[id number] FDAStart: 11-17-2024 Functional Status FnjhWfichpqpfzTzaqacYuvqzgfj12-09-5776Uplpnzecei StatusNoKettering Health Behavioral Medical Center11-25-2024Functional StatusN/AFUniversity Hospitals [facility]11-13-2024 Functional StatusN/AFReg[facility] Ekhodsif71-28-6040Wwdzidpafl StatusN/AExecutive [facility] Clinical Notes 12-01-2021 to 03-19-2025 Note Date & [id number] History of Present illness Narrative* Alexandra Berrios - 03/19/2025 8:30 AM EDT Post op right TKA visit 11-17-2024, doing well. Left knee pain with bone on bone disease of the medial and patellofemoral joint. The patient is seen and evaluated for annual total knee arthroplasty visit. Did well with the hospital stay. No anesthesia problems reported. Happy with the care provided by staff, physical therapy and our office. Pain is appropriately controlled. Denies chest pain or shortness of breath or palpitations. Continues to be consistent and diligent with home exercise program as well as physical therapy modalities. Physical therapy reports are reviewed. Physical Exam: The total knee hip is clean, dry and intact. Mild swelling as expected. Has a stable arc of motion without mechanical symptoms. No instability of the prosthesis. No rash, infection or DVT. The calf is supple. Gait is assisted with stiffness with mild antalgic component. Image Results: Xrays taken in the office today saved to the permanent record, AP, sunrise and lateral weightbearing films, show stable position and alignment of the right TKA prosthesis. No sign of loosening, fracture or infection. The left knee has bone on bone disease to the medial and patellofemoral joint with mild varus deformity. No fracture, dislocation, tumor or infection seen. Assessment: S/P right total knee arthroplasty-annual post-operative visit Left knee advanced osteoarthritis. Treatment Plan: The nature of the findings were discussed at length. Continuance of regular exercise, weight management and fall precautions reviewed. 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 Numerous questions were answered. Follow-up in 1 year for repeat xray and exam, sooner if concerned. The patient is discharged in stable condition. The nature of the findings were discussed at length. We discussed injection, further conservative management as well as total knee replacement on the left. She would like to watch that. Antibiotic prophylaxis for dental or invasive work. Follow up will be at her year anniversary for x-ray and exam of the bilateral knees. Cosigned by Steve Duarte DO at 03/23/2025 12:19 PM EDT documented in this encounterEllis Fischel Cancer CenterRjwcujwzjk96-78-7795 History of Present illness Narrative* Natividad Gudino, PT - 01/02/2025 7:30 AM EDT Images from the original note were not included. Physical Therapy Treatment Visit / Progress visit Patient Name: Michelle Rodriguez Today's Date: 01/02/2025 Encounter Diagnoses Name Primary? Primary osteoarthritis of right knee Yes Acute postoperative pain of right knee Status post right knee replacement Visit number: 20 (9 in home) Timed Code Treatment: 40 minutes Total Treatment Time: 48 minutes Time In: 7:36 AM Time Out: 8:27 AM History: Pt states she underwent surgery for right TKA on 11/17/24. Pt currently ambulating without use of device. States she uses cane as needed. States still having some swelling in right knee; had hard time getting shoes on today. Has 2 steps to enter the home. Sleeping is going well. Elevating right LE as needed. Precautions: [place] Subjective: Pt states she drove herself Pain: denies Objective: PT UPOC (12/10/2024) RIGHT KNEE AROM: 9 to 89 degrees in supine PROM: 6 to 98 degrees MMT: knee extension 3-/5, knee flexion 3-/5; 3-4 degrees extension lag with SLR Special Test: N/A Functional: TUG without device: 14.18 seconds Treatment: Manual Therapy: (prn ) Delivered manual ther to right knee / LE, patellar mobs, knee extension / flexion PROM, STM knee and surrounding area. Therapeutic Exercise: (40 minutes) Guided pt through ther and flex ex per grid to improve right LE quad Strength, Endurance, Flexibility, ROM, HEP, Neural Mobilization, Power, and Core Stability Bike(8 min unsupervised) for knee mobility Therapeutic Activity: () Exercises to improve dynamic activities, functional tasks, functional mobility to return to prior activity level as needed. Neuromuscular re-education: () Balance Training, Muscle Facilitation, Dynamic Stability, Core Stabilization, and Blood Flow Restriction Training (BFRT) as needed. Modalities: (prn ) post session pt supine with to R knee to decrease swelling and inflammation Assessment: Visit #20 ( 9 in home ) female with recent right TKA performed on 11-17-24. Pt ambulatingwithout use of device this date. ROM of right knee is currently 0 to 110 degrees. Strength right quad is 4 to 4+/5. Pt requires moderate UE assistance to ascend 8 inch step. LEFS score 41/80. Will continue to progress as pt tolerates. Outcome Measure: Lower Extremity Functional Scale (LEFS): 34/80 Rehab Diagnosis: right knee pain and weakness, difficulty walking Short Term Goal: To be met in 2 weeks Goal 1: Pt to be instructed in home exercise program. - MET Detention Goals: To be met in 10 weeks Goal 1: Pt to report independence and compliance with home program. - MET Goal 2: Pt to achieve 115 degrees right knee flexion to assist with functional tasks such as squatting. - NOT MET Goal 3: Pt to be lacking no greater than 1 degree right knee extension to assist with proper gait. - MET Goal 4: Pt to achieve 4+ to 5/5 strength right knee flexion and extension to assist with functionalmobility and ADL's. - NOT MET Goal 5: Pt to score no less than 60/80 on LEFS indicating improved QOL. - NOT MET Pt will benefit from skilled PT for 2-3x/week from 12/10/2024 to 03/04/2025 to address the above impairments. I hereby deem this POC medically necessary. Please sign below. Date: documented in this encounterEllis Fischel Cancer [id number] History of Present illness Narrative* Natividad Gudino PT - 12/26/2024 8:00 AM EDT Images from the original note were not included. Physical Therapy Treatment Visit Patient Name: Michelle Rodriguez Today's Date: 12/26/2024 Encounter Diagnoses Name Primary? Primary osteoarthritis of right knee Yes Acute postoperative pain of right knee Status post right knee replacement Aftercare following right knee joint replacement surgery Visit number: 17 (9 in home) Timed Code Treatment: 54 minutes Total Treatment Time: 60 minutes Time In: 07:58 AM Time Out: 09:00 AM History: Pt states she underwent surgery for right TKA on 11/17/24. Pt currently ambulating without use of device. States she uses cane as needed. States still having some swelling in right knee; had hard time getting shoes on today. Has 2 steps to enter the home. Sleeping is going well. Elevating right LE as needed. Precautions: Duson Subjective: Pt states right knee is hurting a bit today, more in the back side of knee. Pain: 1-2 Objective: PT UPOC (12/10/2024) RIGHT KNEE AROM: 9 to 89 degrees in supine PROM: 6 to 98 degrees MMT: knee extension 3-/5, knee flexion 3-/5; 3-4 degrees extension lag with SLR Special Test: N/A Functional: TUG without device: 14.18 seconds Treatment: Manual Therapy: () Delivered manual ther to right knee / LE, patellar mobs, knee extension / flexion PROM, STM knee and surrounding area. Therapeutic Exercise: (41 minutes) Guided pt through ther and flex ex per grid to improve right LE quad Strength, Endurance, Flexibility, ROM, HEP, Neural Mobilization, Power, and Core Stability Bike(unsupervised) for knee mobility Therapeutic Activity: (13 minutes) Exercises to improve dynamic activities, functional tasks, functional mobility to return to prior activity level as needed. Neuromuscular re-education: () Balance Training, Muscle Facilitation, Dynamic Stability, Core Stabilization, and Blood Flow Restriction Training (BFRT) as needed. Modalities: (declined) post session pt supine with to R knee to decrease swelling and inflammation Assessment: Visit #17 ( 9 in home ) female with recent right TKA performed on 11-17-24. Pt ambulatingwithout use of device this date. Lacks terminal right knee extension. Pt achieves 112 degrees rightknee flexion with self stretching this date. Outcome Measure: Lower Extremity Functional Scale (LEFS): 34/80 Rehab Diagnosis: right knee pain and weakness, difficulty walking Short Term Goal: To be met in 2 weeks Goal 1: Pt to be instructed in home exercise program. Disbursement Clerk Goals: To be met in 10 weeks Goal 1: Pt to report independence and compliance with home program. Goal 2: Pt to achieve 115 degrees right knee flexion to assist with functional tasks such as squatting. Goal 3: Pt to be lacking no greater than 1 degree right knee extension to assist with proper gait. Goal 4: Pt to achieve 4+ to 5/5 strength right knee flexion and extension to assist with functionalmobility and ADL's. Goal 5: Pt to score no less than 60/80 on LEFS indicating improved QOL. Pt will benefit from skilled PT for 2-3x/week from 12/10/2024 to 03/04/2025 to address the above impairments. I hereby deem this POC medically necessary. Please sign below. Date: documented in this encounterEllis Fischel Cancer [id number] History of Present illness Narrative* Steve Duarte, - 12/16/2024 1:15 PM EDT Post op right TKA 1st visit: The patient is seen and evaluated for first total knee arthroplasty visit. Did well with the hospital stay. No anesthesia problems reported. Happy with the care provided by staff, physical therapy and our office. Pain is appropriately controlled. Denies chest pain or shortness of breath or palpitations. Continues to be consistent and diligent with home exercise program as well as physical therapymodalities. Physical therapy reports are reviewed. Physical Exam: The total knee incision is clean, dry and intact. Mild swelling and warmth as expected.. Has a stable arc of motion with near full extension. Stable flexion. Patellofemoral tracking is appropriate. No instability of the prosthesis. Collateral ligaments are intact. No rash, infection or DVT. The calf is supple. Gait is assisted with stiffness with mild antalgic component. Image Results: Xrays taken in the office today saved to the permanent record, Ap, lateral and sunrise weight bearing films, show stable position and alignment of the knee prosthesis. No sign of loosening or infection. Severe DJD left knee. Assessment: S/P right total knee arthroplasty-first post-operative visit Treatment Plan: The nature of the findings were discussed at length. Ice, vitamin E lotion massage techniques, stretching, physical therapy modalities will be continued and were reviewed. Discontinuance of the DVT prophylaxis that was used in the first four weeks. Resume any prexisting medications and blood thinners. Continuance of physical therapy with progression to a home program. Fall precautions, with assistive device as needed. Follow up will be in three months for repeat x-ray and exam. 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 Numerous questions were answered. The patient is discharged in stable condition. documented in this encounterEllis Fischel Cancer CenterPvssfbnstg73-47-3766 History of Present illness Narrative* Cierra Briscoe, PT - 12/05/2024 8:00 AM EDT Physical [...] out: 8:40 am Total time: 40 minutes 64458 TherEx x 30 minutes 00548 gait training x 10 minutes Precautions: WBAT [...] hesitation. Therapeutic Activity: All transfers performed at [facility] Assessment & Plan Pt making [...] AD with supervision, step to gait pattern. Disbursement Clerk Goals Goal 1 : Patient will demonstrate [...] to transition to OP next week at [facility]. documented in this encounterEllis Fischel Cancer [id number] History of Present illness Narrative* Cierra Briscoe, PT - 12/03/2024 8:00 AM EDT Physical [...] out: 8:40 am Total time: 40 minutes 94363 TherEx x 30 minutes 23648 gait training x 10 minutes Precautions: WBAT [...] gait pattern; ambulated outside onuneven surfaces at SBA no LOB, some hesitation. Therapeutic Activity: All transfers performed at [facility] Assessment & Plan Pt making [...] AD with supervision, step to gait pattern. Detention Goals Goal 1 : Patient will demonstrate [...] details: Educated to continue icing and elevating. Landrum to be removed next session. Pt to transition to OP next week at [facility]. documented in this encounterEllis Fischel Cancer CenterKyvapfdayh29-64-7804 History of Present illness Narrative* Cierra Briscoe, PT - 12/01/2024 8:00 AM EDT Physical [...] out: 8:38 am Total time: 38 minutes 49558 TherEx x 30 minutes 41399 gait training x 8 minutes Precautions: WBAT [...] AD with supervision, step to gait pattern. Disbursement Clerk Goals Goal 1 : Patient will demonstrate [...] continue icing and elevating. documented in this encounterEllis Fischel Cancer CenterWuiltcumdr10-36-2665 History of Present illness Narrative* Cierra Briscoe, PT - 11/28/2024 8:00 AM EDT Physical [...] out: 8:38 am Total time: 38 minutes 31348 TherEx x 30 minutes 27414 gait training x 8 minutes Precautions: WBAT [...] adjusted. Therapeutic Activity: All transfers performed at [facility] Assessment & Plan [...] AD with supervision, step to gait pattern. Disbursement Clerk Goals Goal 1 : Patient will demonstrate [...] continue icing and elevating. documented in this encounterEllis Fischel Cancer [id number] History of Present illness Narrative* Cierra Briscoe PT - 11/26/2024 8:00 AM EDT Physical [...] out: 8:38 am Total time: 38 minutes 90236 TherEx x 30 minutes 88008 gait training x 8 minutes Precautions: WBAT [...] carryover. Therapeutic Activity: All transfers performed at [facility] Assessment & Plan Pt making [...] AD with supervision, step to gait pattern. Disbursement Clerk Goals Goal 1 : Patient will demonstrate [...] continue icing and elevating. documented in this encounterEllis Fischel Cancer [id number] History of Present illness Narrative* Cierra Briscoe, PT - 11/24/2024 1:50 PM EDT Physical Therapy Physical Therapy Daily Visit [...] out: 2:34 pm Total time: 39 minutes 49076 TherEx x 30 minutes 31358 gait training x 9 minutes Precautions: WBAT [...] SBA Sit to Stand: SBA Stair Negotiation: [facility] Ambulation: Patient is ambulating with moderate antalgic [...] time: Heels apart = 0. Gait score: 12. Total Score = Balance + Gait 05/15. [...] stand to sit transfers this date from reclinerwith poor carryover; needed only SBA assist with [...] AD with supervision, step to gait pattern. Detention Goals Goal 1 : Patient will demonstrate [...] continue icing and elevating. documented in this [facility]06-07-2025 History of Present illness Narrative* Cierra Briscoe, PT - 11/22/2024 10:00 AM EDT Physical Therapy Physical Therapy Daily [...] out: 10:40 am Total time: 40 minutes 50070 TherEx x 30 minutes 04119 gait training x 10 minutes Precautions: WBAT [...] SBA Sit to Stand: SBA Stair Negotiation: [facility] Ambulation: Patient is ambulating with moderate antalgic [...] stand to sit transfers this date from reclinerwith poor carryover; needed only SBA assist with [...] AD with supervision, step to gait pattern. Disbursement Clerk Goals Goal 1 : Patient will demonstrate [...] continue icing and elevating. documented in this encounterEllis Fischel Cancer CenterNhqtzhatqt31-85-6372 History of Present illness Narrative* Cierra Briscoe, PT - 11/20/2024 9:00 AM EDT Physical Therapy Physical Therapy Daily [...] out: 9:40 am Total time: 40 minutes 74055 TherEx x 30 minutes 50345 gait training x 10 minutes Precautions: WBAT [...] instruction for step to gait pattern for rightaffective LE with increase cues for heel to toe pattern and knee flexion during swing. Therapeutic Activity: Worked on proper sit to stand, stand to sit transfers this date from reclinerwith poor carryover; needed only SBA assist with [...] AD with supervision, step to gait pattern. Disbursement Clerk Goals Goal 1 : Patient will demonstrate [...] continue icing and elevating. documented in this encounterEllis Fischel Cancer CenterWdfjqmoonb82-99-4802 NoteProgress Note-Physician Patient: MICHELLE RODRIGUEZ Age: 64 years Sex: [...] Problems Vitamin D deficiency / SNOMED CT 26946695 / Confirmed Uterine leiomyoma / SNOMED CT 812631284 / Confirmed Other urethral stricture, female / SNOMED CT 536576623 / Confirmed Occult blood positive stool / SNOMED CT 0036524258 / Confirmed Positive fecal occult blood test / SNOMED CT 0181412703 / Confirmed Class 3 obesity / SNOMED CT 9873352764 / Confirmed Mass of parotid gland / SNOMED CT 209241379 / Confirmed Urinary frequency / SNOMED CT 345201944 / Confirmed Hypertension / SNOMED CT 0422302242 / Confirmed Hyperlipidemia / SNOMED CT 07095102 / Confirmed High cholesterol / SNOMED CT 60784503 / Confirmed History of recurrent UTI (urinary tract infection) / SNOMED CT 2280836401 / Confirmed GERD (gastroesophageal reflux disease) / SNOMED CT 072070378 / Confirmed Former smoker / SNOMED CT 66637787 / Confirmed BMI 36.0-36.9,adult / SNOMED CT 371630849 / Confirmed Resolved: Migraines / SNOMED CT 94953789 Resolved: Adrenal gland hematoma / SNOMED CT 056084888 Canceled: Vaginal odor / SNOMED CT 6710470172 Canceled: Foul smelling urine / SNOMED CT 1408172187 Canceled: Essential hypertension / SNOMED CT 71813039 Canceled: Abdominal pain / SNOMED CT 80597041 Histories Procedure history: Colonoscopy ([id number]) on 05/12/2024 at 64 Years. Cysto/UD (078931481) on 09/23/2013 at 53 Years. Cysto/UD (888521036) on 04/29/2003 at 43 Years. Tubal ligation (374548241). Rotator cuff repair (853131962). Superficial parotidectomy (012034340). Social History Social & Psychosocial Habits Alcohol [...] adequate air exchange. Cardiovascular: Regular rhythm. Plan [place] [employer] Anesthesiologists (ASA) physical status classification: Class III. Anesthetic Preoperative Plan: Anesthesia General, and Patient educated on benefits, alternatives and inherent risk of anesthesia including, but not all inclusive, Allergic reactions, dental damage, nerve damage and cardio-pulmonary complications and wishes to proceed with anesthetic plan.. Regional Spinal, and Adductor canal.[facility] HospitalComment on above: Result Comment: Electronically Signed By: Montez Julien Jr, DO\Date and Time Signed: 11/19/24 08:03 [id number] NoteProgress Note-Physician Patient: MICHELLE RODRIGUEZ Age: 64 years Sex: Female : 1960 Associated Diagnoses: None Author: Montez Julien Jr, DO Postoperative Information Postoperative disposition: Postoperative disposition: To PACU. Optimetrix number: Optimetrix number [id number]. Anesthetic utilized: General. Regional: Spinal. Combined technique: [...] Discharge when meets criteria ( To home ).[facility] HospitalComment on above:Result Comment: Electronically Signed By: Montez Julien Jr, DO\.br\Date and Time Signed: 11/19/24 08:03 EDT 11-18-2024 History of Present illness Narrative* Cierra Briscoe, PT - 11/18/2024 11:15 AM EDT Physical Therapy Physical Therapy Evaluation Patient Name: Michelle Rodriguez Today's Date: 11/18/2024 Subjective Current Problem: s/p right TKA with pain and difficulty walking. Pt is being seen today for initialevaluation for s/p right TKA. Date of Surgery: 11/17/2024 with same day discharge. Current deficits: Difficulty with all mobility secondary to recent right TKA and pain. Visit Number 1. Time In: 11:15 am; Time out: 12:00 PM Total time: 45 minutes 34864 PT Eval x 20 minutes 25424 TherEx x 10 minutes 35996 gait training x 15 minutes Precautions: WBAT [...] instruction for step to gait pattern for rightaffective LE with increase cues for heel to toe pattern and knee flexion during swing. Therapeutic Activity: Worked on proper sit to stand, stand to sit transfers this date from reclinerwith poor carryover; needed only SBA assist with [...] AD with supervision, step to gait pattern. Detention Goals Goal 1 : Patient will demonstrate [...] mobility to achieve PLOF. documented in this encounterEllis Fischel Cancer CenterWmuclhqcnx94-14-5230 Hospital Discharge instructions Patient Education 11/17/2024 15:04:28 [...] as possible. If the spirometer includes a etiquette coach indicator, use this to guide you in breathing. Slow down your breathing if the indicator goes above the marked areas. 7.Remove the mouthpiece from your mouth and breathe out normally. The piston or ball will return tothe bottom of the chamber. 8.Rest for a [...] cough up bloody mucus, or blood comes fromyour incision when you cough. This information is not intended to replace advice given to you by your health care provider. Make sure you discuss any questions you have with your health care provider. Document Revised: 08/23/2020 Document Reviewed: 08/23/2020 SendRR Patient Education 2023 [employer]. 11/17/2024 15:04:22 Knee Cryocuff Patient Instructions - [...] as possible. If the spirometer includes a etiquette coach indicator, use this to guide you in breathing. Slow down your breathing if the indicator goes above the marked areas. 7.Remove the mouthpiece from your mouth and breathe out normally. The piston or ball will return tothe bottom of the chamber. 8.Rest for a [...] cough up bloody mucus, or blood comes fromyour incision when you cough. This information is not intended to replace advice given to you by your health care provider. Make sure you discuss any questions you have with your health care provider. Document Revised: 08/23/2020 Document Reviewed: 08/23/2020 SendRR Patient Education 2023 [employer]. 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 It is therefore advised not to drive until after yourfirst office visit following surgery FOLLOW-UP OFFICE VISIT: Steve Duarte, DO [facility] [address] [place] [id number] Reviewed: 07-12 Follow Up Care 10/30/2024 11:38:19 With:MARIA Guadarrama Address: [address] [place] [address]- Business (1) When:12/16/2024 13:30:00 Comments:Keep scheduled appointment [facility] [id number] NoteInterdisciplinary Note - OT Pt is seen this date for OT evaluation following R TKA with Dr. Duarte. [facility] score: . Pt demonstrates ability to safely complete functional transfers and mobility with FWW for support with SBA/CGA and is CGA for ADL tasks. Pt has been educated regarding joint protection and home safety. Pt has spouse for support at d/c and will have services.[facility]06-02-2025 NotePatient Education - Text How to Use an [...] pain medicine before doing incentive spirometry. It isharder to take a deep breath if you [...] mouth, causing the piston or the ball torise toward the top of the chamber. 6. Hold your breath for 3?5 seconds, or for as long as possible. ??? If the spirometer includes a etiquette coach indicator, use this to guide you [...] provider. Document Revised: 08/23/2020 Document Reviewed: 08/23/2020 [employer] Patient Education ? 2023 [employer] Pulmonary Medicine How to Use an Incentive Spirometer An incentive spirometer is a tool that measures how well you are filling your lungs with each breath. Learning to take long, deep breaths using this tool can help you keep your lungs clear and active. This may help to reverse or lessen your c (more content not included)...[facility]06-02-2025 Evaluation + Plan noteExtracted from:Title:Op Note skeletonAuthor:Steve Duarte DO TDate:11/17/24 Impression and Plan Diagnosis Pre-op dx-rt knee oa/pain Post-op dx-same Procedure-rt tka Anesthesia-spinal c block EBL-0 TT-see nn To Recovery Room in stable and satisfactory condition..[facility] 05-27-2025 NotePatient Education - Text [place], [place] [facility] DISCHARGE INSTRUCTIONS TOTAL KNEE [...] will continue at home, possible with the assistant professor of drama of Home Health Physical Therapy or in [...] 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 It is therefore advised not to drive until after yourfirst office visit following surgery FOLLOW-UP OFFICE VISIT: Steve Duarte DO [facility] [address] [place] [address] Reviewed: 07-12[facility]05-27-2025 NoteProgress Note-Physician Patient: MICHELLE RODRIGUEZ Age: 64 years Sex: [...] On day after surgery @ 0600: Remove Jules wrap, soft cast padding and the 2 [...] specify), Reason: Post-op evaluation, No, in PACU, pp_set_radiology_subspecialty,[facility], 11/17/24 12:30:00 EDT Ordered: Zofran 4 mg/2 mL Injection,4 mg = 2 mL, Injection, IV Push, q6hr PRN Nausea/Vomiting, Routine, Start jacqueline (more content not included)...[facility] HospitalComment on above:Result Comment: Electronically Signed By: Steve Duarte DO\.br\Date and Time Signed: 11/11/24 17:10 [id number] History of Present illness Narrative* Eliane Yoo [...] is aware that results cannot be guaranteed. [facility] antibiotic prophylaxis with dental or invasive surgical [...] 11/03/2024 3:25 PM EDT documented in this encounterEllis Fischel Cancer [id number] History of Present illness Narrative* Eliane Yoo [...] having pain or concerns. documented in this encounterEllis Fischel Cancer CenterKrzdxkkurn23-42-5194 History of Present illness Narrative* Eliane Yoo [...] bilateral knee GelSyn injection. documented in this encounterEllis Fischel Cancer [id number] History of Present illness Narrative* Eliane Yoo [...] second bilateral knee GelSyninjection. documented in this encounterEllis Fischel Cancer CenterSijwmrgvqf22-15-0748 Evaluation + Plan note Extracted from:Title:JOANA Post-operative Note---GeneralAuthor:Montez Ford MD Date:05/12/24 Plan Transfer/Discharge: Transfer/Discharge Discharge when meets criteria ( To home ). Extracted from:Title:JOANA Pre-operative Note uthor:Montez Ford MDDate: 05/12/24 Plan [place] Society of Anesthesiologists (ASA) physical status classification: Class III. Anesthetic Preoperative Plan: Anesthesia General.[facility] 11-25-2024 Hospital Discharge instructions Patient Education 05/12/2024 [...] unsweetened, w/added ascorbic acid 1 cup 0.5 Ellis 1 cup 0.7 Vegetables Cooked Green beans 1 cup 4.0 Carrots 1/2 cup sliced 2.3 Peas 1 cup 8.8 Potato (baked, with skin) 1 medium potato 3.8 Raw Alvord (with peel) 1 cucumber 1.5 Lettuce 1 [...] 8.7 Peanuts 1/2 cup 7.9 Chart from [facility] 2013. SEEK IMMEDIATE MEDICAL CARE IF: [...] Reference. Available at http://www.nal.usda.gov/fnic/foodcomp/search/. Information adapted from: ExitCare Patient Information 2009 [employer]. [facility] 2012 [email or web address]://www.Lytics/contents/oznbhmqifhxr-scftkkd-ervwlx-the-basics 05/12/2024 08:26:46 Colonoscopy, Care After Surgery Kristen (CUSTOM) Colonoscopy Care After Surgery Please read [...] Up Care 04/30/2024 15:54:15 With:Steve VAZQUEZ Address: [address] [place] [address], [address] [place] [phone] Business (1) When: only if needed [facility] 11-25-2024 NoteProgress Note-Physician Patient: MICHELLE RODRIGUEZ Age: 64 years Sex: Female : 1960 Associated Diagnoses: None Author: Eh BATES, Montez Clemons Postoperative Information Postoperative disposition: Postoperative disposition: To PACU. Optimetrix number: Optimetrix number [id number]. Anesthetic utilized: General. Health Status Allergies: Allergic [...] Discharge when meets criteria ( To home ).[facility] HospitalComment on above:Result Comment: Electronically Signed By: Montez Ford MD\.br\Date and Time Signed: 05/12/24 08:37 EST 05-12-2024 NoteProgress Note-Physician Patient: MICHELLE RODRIGUEZ Age: 64 years Sex: [...] Problems Adrenal gland hematoma / SNOMED CT 086682538 / Confirmed BMI 36.0-36.9,adult / SNOMED CT 266835679 / Confirmed Class 3 obesity / SNOMED CT 2286265493 / Confirmed Former smoker / SNOMED CT 38440559 / Confirmed GERD (gastroesophageal reflux disease) / SNOMED CT 554636592 / Confirmed History of recurrent UTI (urinary tract infection) / SNOMED CT 1733966713 / Confirmed Hyperlipidemia / SNOMED CT 08169829 / Confirmed Hypertension / SNOMED CT 1785337764 / Confirmed Mass of parotid gland / SNOMED CT 949372769 / Confirmed Migraines / SNOMED CT 52208557 / Confirmed Occult blood positive stool / SNOMED CT 6230675032 / Confirmed Other urethral stricture, female / SNOMED CT 738761439 / Confirmed Positive fecal occult blood test / SNOMED CT 6525791628 / Confirmed Urinary frequency / SNOMED CT 265331388 / Confirmed Uterine leiomyoma / SNOMED CT 382122296 / Confirmed Vitamin D deficiency / SNOMED CT 33376476 / Confirmed Canceled: Abdominal pain / SNOMED CT 87851896 Canceled: Essential hypertension / SNOMED CT 06877031 Canceled: Foul smelling urine / SNOMED CT 2178956161 Canceled: Vaginal odor / SNOMED CT 0279945681, Active Problems (16) Adrenal gland hematoma BMI [...] Hyperlipidemia Mother Leukemia Grandparent Procedure history: Cysto/UD (421610958) on 09/23/2013 at 53 Years. Cysto/UD (013284694) on 04/29/2003 at 43 Years. Tubal ligation (913172413). Rotator cuff repair (897086383). Superficial parotidectomy (203584647). Social History Social & Psychosocial Habits Alcohol 04/30/2024 Risk Assessment: Denies Alcohol Use Substance Abuse 04/30/2024 Risk Assessment: Denies Substance Abuse Tobacco 04/30/2024 Tobacco Use: Forme (more content not included)...[facility] MarylandComment on above:Result Comment: Electronically Signed By: Eh BATES, Montez Clemons\.br\Date and Time Signed: 05/12/24 08:29 [id number] NoteColonoscopy Procedure Report Patient: MICHELLE RODRIGUEZ MRN: 20 Age: 64 [...] the diverticulosis is moderate. Images Procedure images: [id number]__[id number] anal canal rectal veins sigmoid diverticulosis ileocecal valve appendiceal orifice . Post-Procedure Complications: none. Estimated blood loss: none. Specimens: none. Devices/ implants: none left in place. Impression and Plan Diagnosis: Diverticulosis of sigmoid colon (UVE33-CK K57.30, Discharge, Medical). Course: Progressing as expected. Recommendations: Repeat colonoscopy:: In 10 years. Follow-up:: if problems/questions. Diet:: Regular diet. Medication resumption:: Continue current medications. Return to activities:: After 24 hours. Education and Follow-up: Counseled: Family.[facility] HospitalComment on above:Other Comment: Missing Attachment - attachment storage system not supported [id number] Can be viewed in source system Missing Attachment - attachment storage system not supported [id number] Can be viewed in source systemMissing Attachment - attachment storage system not supported [id number] Can be viewed in source systemMissing Attachment - attachment storage system not supported [id number] Can be viewed in source systemMissing Attachment - attachment storage system not supported [id number] Can be viewed in source systemMissing Attachment - attachment storage system not supported 0532913 Can be viewed in source [id number] NotePatient Education - Text Diverticulosis Many people [...] unsweetened, w/added ascorbic acid 1 cup 0.5 Ellis 1 cup 0.7 Vegetables Cooked Green beans 1 cup 4.0 Carrots 1/2 cup sliced 2.3 Peas 1 cup 8.8 Potato (baked, with skin) 1 medium potato 3.8 Raw Alvord (with peel) 1 cucumber 1.5 Lettuce 1 [...] 8.7 Peanuts 1/2 cup 7.9 Chart from [facility] 2013. SEEK IMMEDIATE MEDICAL CARE IF: [...] of Agriculture (USDA) National Nutrient Database at: http://www.Sponsia.usda.gov/fnic/foodcomp/search/ Created using data from the USDA National Nutrient Database for Standard Reference. Available at http://www.Sponsia.BEKIZ.gov/fnic/foodcomp/search/. Information adapted from: [facility]??? Patient Information ???2009 [employer]. [employer] 2012 http://www.[email or web address]/contents/budpuqgsidar-hbgowji-fgrwrb-the-basics Colonoscopy Care After Surgery Please read the [...] by your doctor. Beg (more content not included)...[facility]11-25-2024 Note History and Physical Patient: MICHELLE RODRIGUEZ Age: 64 years Sex: Female : 1960 Associated Diagnoses: None Author: GEORGE BATES, Steve Clinton Subjective no changes to H & PFisher [facility]berry Medical CenterComment on above:Result Comment: Electronically Signed By: GEORGE BATES, Steve Pantoja\Date and Time Signed: 05/12/24 08:25 [id number] Telephone encounter Note* Telephone Encounter - Pia Car - 05/02/2024 8:03 AM EST Forwarded message to emily to authorize [facility] Fischel Cancer CenterGjgaalfbah54-06-6561 Miscellaneous Notes* Telephone Encounter - Pia Car [...] to auth? (Mtp pt) documented in this encounterNOSaint John's Breech Regional Medical CenterTgflxsslyi79-18-4936 Telephone encounter Note* Telephone Encounter - Tawana Dawn MA - 05/01/2024 4:48 PM EST Per MTP - okay to auth gel injections. She will need xrays at first inj appt. [facility] Fischel Cancer CenterKihefderwa58-42-8422 NoteGeneral Surgery Office/Clinic Note Chief Complaint consultation for positive occult stool HPI Staff 64 year old female presents on consultation from Dr. Hoy for positive occult stool. Denies abdominal or [...] lung: Father. Immunizations V (more content not included)...[facility] HospitalComment on above: Result Comment: Electronically Signed By: GEORGE BATES, Steve Pantoja\Date and Time Signed: 04/30/24 15:44 [id number] Telephone encounter Note* Telephone Encounter - Pia Car - 04/30/2024 9:37 AM EST ZURDO/Gelsyn 3 09/06/23, lxr 06/26/23 Asking to have visco authorized and try to have before end of year. See for appt first? Or try to auth? (Mtp pt) [facility]l Cancer CenterRzjatcdqvt57-43-7856 History of Present illness Narrative* Fito Hill MD - 03/31/2024 1:30 PM EDT Images from the original note were not included. [facility] [address] [address] Subjective: Patient ID: Michelle Rodriguez is a [...] the legs. She saw a Urologist in [place] and was told she had a vaginal [...] Resource Strain: Low Risk (11/29/2023) Received from [facility] Overall Financial Resource Strain (CARDIA) Difficulty of Paying Living Expenses: Not hard at all Food Insecurity: No Food Insecurity (11/29/2023) Received from [facility] Hunger Vital Sign Worried About Running Out of Food in the Last Year: Never true Ran Out of Food in the Last Year: Never true Transportation Needs: Unknown (11/29/2023) Received from [facility] PRAPARE - Transportation Lack of Transportation (Medical): Not on file Lack of Transportation (Non-Medical): No Physical Activity: Not on file Stress: Not on file Social Connections: Not on file Interpersonal Safety: Not on file Housing Instability: Unknown (11/29/2023) Received from [facility] Housing Stability Vital Sign Unable to [...] visit: Pelvic congestion syndrome - [facility] KAYLIN Martínez Plan: Plan I was able to review [...] understanding. Fito Hill MD documented in this encounterGood Samaritan HospitalBookMyShow [facility] HospitalBilmgc19-52-3660 Miscellaneous Notes* Telephone Encounter - Kathe An MA - 02/25/2024 1:59 PM EDT I called referring physician, Dr Jose Baldwin's office and spoke with Sabine and told her that patient did not show for [employer] in [place] with Dr Hill [facility] Telephone encounter Note* Telephone Encounter - Kathe An MA - 02/25/2024 1:59 PM EDT I called referring physician, Dr Jose Baldwin's office and spoke with Sabine and told her that patient did not show for [employer] in [place] with Dr Hill [facility]05[facility]07[facility] Hospital Discharge instructions Patient Education 10/23/2023 [...] Follow these instructions at home: Medicines Take jmda-emi-affucrr and prescription medicines only as told by [...] Watch your condition for any changes. Take swzb-avl-whqejsr and prescription medicines only as told by [...] provider. Document Revised: 07/23/2020 Document Reviewed: 10/13/2019 SendRR Patient Education 2022 [employer]. Follow Up Care 10/15/2023 10:31:47 With:AURA CROUCH, RAMONA Schneider, URL Address: [address] [place], [place] [address] [address] [phone] When: Unknown [facility] 05-07-2024 Evaluation + Plan note Diagnostic Tests Pending * Gynecological Culture 10/23/23 [facility]06-16-2022 NotePROCEDURE: XR FOOT RT MIN 3 VIEWS HISTORY: Pain in right foot ; acute second metatarsal pain since twisting injury 4 days ago COMPARISON: None. FINDINGS: BONES:No fracture, acute abnormality, or significant arthropathy. SOFT TISSUES:No visible soft tissue swelling. EFFUSION:None visible. OTHER: Negative. IMPRESSION: 1. No acute bone abnormality. 2. Minimal degenerative changes. Electronically authenticated by: ANOOP FELIX Date: 2021-12-01 11:20[facility] [place] [facility] note No data available for this section [facility] evaluation + Plan note Future Appointments Appointment Date:05/12/2024 08:00:00 AM Scheduled Provider: Location:[facility] Appointment Type:Surgery FT [facility] [place] Evaluation + Plan note Future Appointments Appointment Date:11/17/2024 12:30:00 PM Scheduled Provider: Location:[facility] Appointment Type:Surgery FT [facility] Evaluation note* Diagnosis Bilateral primary osteoarthritis of knee- Primary [facility] Diagnosis Bilateral primary osteoarthritis of knee- Primary [facility]* Diagnosis Bilateral primary osteoarthritis of knee- Primary [facility]* Diagnosis Pelvic pain- Primary Pelvic congestion syndrome documented [facility] encounter [facility]* Diagnosis Pre-op testing- Primary Unspecified pre-operative examination Bilateral primary osteoarthritis of knee documented [facility]* Diagnosis Primary osteoarthritis of right knee- Primary documented [facility]* Diagnosis Primary osteoarthritis of right knee- Primary Acute postoperative pain of right knee Status post right knee replacement documented [facility]* Diagnosis Primary osteoarthritis of right knee- Primary Acute postoperative pain of right knee Status post right knee replacement documented [facility]* Diagnosis Primary osteoarthritis of right knee- Primary Acute postoperative pain of right knee Status post right knee replacement [facility]* Diagnosis Primary osteoarthritis of right knee- Primary Acute postoperative pain of right knee Status post right knee replacement Aftercare following right knee joint replacement surgery [facility]* Diagnosis Primary osteoarthritis of right knee- Primary Acute postoperative pain of right knee Status post right knee replacement documented [facility]* Diagnosis Primary osteoarthritis of right knee- Primary Acute postoperative pain of right knee Status post right knee replacement documented [facility]* Diagnosis S/P total knee arthroplasty, right- Primary documented [facility]* Diagnosis Primary osteoarthritis of right knee- Primary Acute postoperative pain of right knee Status post right knee replacement documented [facility]* Diagnosis Primary osteoarthritis of right knee- Primary Acute postoperative pain of right knee Status post right knee replacement documented [facility]* Diagnosis Primary osteoarthritis of right knee- Primary Acute postoperative pain of right knee Status post right knee replacement Aftercare following right knee joint replacement surgery [facility]* Diagnosis Primary osteoarthritis of right knee- Primary Acute postoperative pain of right knee Status post right knee replacement documented in this encounter [facility]* Diagnosis Primary osteoarthritis of right knee- Primary Acute postoperative pain of right knee Status post right knee replacement documented in this encounter [facility]* Diagnosis Primary osteoarthritis of right knee- Primary Acute postoperative pain of right knee Status post right knee replacement documented in this encounter [facility]* Diagnosis Primary osteoarthritis of right knee- Primary Acute postoperative pain of right knee Status post right knee replacement Aftercare following right knee joint replacement surgery documented in this encounter [facility]* Diagnosis Primary osteoarthritis of right knee- Primary Acute postoperative pain of right knee Status post right knee replacement Aftercare following right knee joint replacement surgery documented in this encounter [facility] note* Diagnosis Primary osteoarthritis of right knee- Primary Acute postoperative pain of right knee Status post right knee replacement documented in this encounter [facility] note* Diagnosis S/P total knee arthroplasty, right- Primary documented in this encounter [facility] HealthcareHospital Discharge instructions No data available for this section [facility] CenterInstructionsNot on filedocumented in this encounter [facility] SystemInstructionsNot on filedocumented in this encounter [facility] SystemProgress note No data available for this section [facility] [place] Reason for visit Narrative* Consultation (Routine) - ClosedSpecialtyDiagnoses / ProceduresReferred By ContactReferred To Contact Physical Therapy Diagnoses Primary osteoarthritis of right knee Procedures RI OFFICE/OUTPATIENT [facility] 60 MINUTES Steve Duarte, DO [address] [place] [address] Phone: tel: fax: Madison Mcclure, PT [address] [facility] [address] [place] [address] Phone: tel: fax: Referral IDStatusReasonStart DateExpiration DateVisits RequestedVisits [id number] Specialty Services Required 060 [facility] HealthcareReason for visit Narrative* Rehabilitation - Outpatient (Routine) - AuthorizedSpecialtyDiagnoses / ProceduresReferred By ContactReferred To ContactPhysical Therapy Diagnoses Aftercare following right knee joint replacement surgery Procedures RI OFFICE/OUTPATIENT NEW HIGH MDM 60 MINUTES Steve Duarte, DO [address] [place] [address] Phone: tel: fax: Natividad Gudino, PT Referral IDStatusReasonStart DateExpiration DateVisits RequestedVisits [id number] Consult and Treat 959 [facility] HealthcareReason for visit Narrative* Rehabilitation - Outpatient (Routine) - Pending ReviewSpecialtyDiagnoses / ProceduresReferred By ContactReferred To ContactPhysical Therapy Diagnoses Aftercare following right knee joint replacement surgery Procedures RI OFFICE/OUTPATIENT NEW HIGH MDM 60 MINUTES Steve Duarte, DO [address] [place] [id number] Phone: tel: fax: Natividad Gudino, PT Referral IDStatusReasonStart DateExpiration DateVisits RequestedVisits [id number] Review Consult and Treat 959 [facility] Summary Purpose Family History No [...] Advanced Directives Records Found Reason for Referral SpecialtyDiagnoses / ProceduresReferred By ContactReferred To ContactRadiology Diagnoses Pelvic congestion syndrome Pelvic pain Procedures MRV abdomen pelvic congestion with and without contrast Fito Hill MD [address] [facility] [address] [place] [address] [address] Referral IDStatusReasonStart DateExpiration DateVisits RequestedVisits [id number] / ProceduresReferred By ContactReferred To ContactRadiology Diagnoses Pelvic congestion syndrome Pelvic pain Procedures MRV pelvis pelvic congestion with and without contrast Fito Hill MD [address] [facility] [address] [place] [address] [address] Referral IDStatusReasonStart DateExpiration DateVisits RequestedVisits [id number] Additional Source Comments INFORMATION SOURCE (unrecogn ized section and content) DATE CREATED AUTHOR 10/25/2022 [facility] DATE CREATED AUTHOR AUTHOR'S ORGANIZ ATION 12/07/2023 [facility] DATE CREATED AUTHOR AUTHOR'S ORGANIZ ATION 03/18/2024 [facility] DATE CREATED AUTHOR AUTHOR'S ORGANIZ ATION 04/02/2024 [facility] DATE CREATED AUTHOR AUTHOR'S ORGANIZ ATION 11/02/2024 [facility] DATE CREATED AUTHOR AUTHOR'S ORGANIZ ATION 11/17/2024 [facility] DATE CREATED AUTHOR AUTHOR'S ORGANIZ ATION 11/20/2024 [facility] DATE CREATED AUTHOR AUTHOR'S ORGANIZ ATION 11/22/2024 [facility] DATE CREATED AUTHOR AUTHOR'S ORGANIZ ATION 03/23/2025 [facility] EPIC Patient Care team informatio n (unrecognized section and content) Team MemberRelationshipSpecialtyStart DateEnd Date Maggie Baldwin MD [address] [facility] [place] [address] PCP - GeneralFamily Medicine06/25/23Team MemberRelationshipSpecialtyStart DateEnd Date Maggie Baldwin MD [address] [facility] [place] [address] PCP - GeneralFamily Medicine06/25/23Team MemberRelationshipSpecialtyStart DateEnd Date Maggie Baldwin MD [address] [facility] [place] [address] PCP - GeneralFamily Medicine06/25/23Team MemberRelationshipSpecialtyStart DateEnd Date Maggie Baldwin MD [address] [facility] [place] [address] PCP - GeneralFamily Medicine06/25/23Team MemberRelationshipSpecialtyStart DateEnd Date Maggie Baldwin MD [address] [facility] [place] [address] PCP - GeneralFamily Medicine06/25/23Team MemberRelationshipSpecialtyStart DateEnd Date Maggie Baldwin MD [address] [facility] [place] [address] PCP - GeneralFamily Medicine06/25/23Team MemberRelationshipSpecialtyStart DateEnd Date Maggie Baldwin MD [address] [place] [facility] [place] [address] PCP - General09/02/13Team MemberRelationshipSpecialtyStart DateEnd Date Maggie Baldwin MD [address] [place] [facility] [place] [address] PCP - General09/02/13Team MemberRelationshipSpecialtyStart DateEnd Date Maggie Baldwin MD [address] [place] [facility] [place] [address] PCP - General09/02/13Team MemberRelationshipSpecialtyStart DateEnd Date Maggie Baldwin MD [address] [facility] [place] [address] PCP - GeneralFamily Medicine10/30/24Team MemberRelationshipSpecialtyStart DateEnd Date Maggie Baldwin MD [address] [facility] [place] [address] PCP - GeneralFamily Medicine10/30/24Team MemberRelationshipSpecialtyStart DateEnd Date Maggie Baldwin MD [address] [facility] [place] [address] PCP - GeneralFamily Medicine10/30/24Team MemberRelationshipSpecialtyStart DateEnd Date Maggie Baldwin MD [address] [facility] [place] [address] PCP - GeneralFamily Medicine10/30/24Team MemberRelationshipSpecialtyStart DateEnd Date Maggie Baldwin MD [address] [facility] [place] [address] PCP - GeneralFamily Medicine10/30/24Team MemberRelationshipSpecialtyStart DateEnd Date Maggie Baldwin MD [address] [facility] [place] [address] PCP - GeneralFamily Medicine10/30/24Team MemberRelationshipSpecialtyStart DateEnd Date Maggie Baldwin MD [address] [facility] [place] [address] PCP - GeneralFamily Medicine10/30/24Team MemberRelationshipSpecialtyStart DateEnd Date Maggie Baldwin MD [address] [facility] [place] [address] PCP - GeneralFamily Medicine10/30/24Team MemberRelationshipSpecialtyStart DateEnd Date Maggie Baldwin MD [address] [facility] [place] [address] PCP - GeneralFamily Medicine10/30/24Team MemberRelationshipSpecialtyStart DateEnd Date Maggie Baldwin MD [address] [facility] [place] [address] PCP - GeneralFamily Medicine10/30/24Team MemberRelationshipSpecialtyStart DateEnd Date Maggie Baldwin MD [address] [facility] [place] [address] PCP - GeneralFamily Medicine10/30/24Team MemberRelationshipSpecialtyStart DateEnd Date Maggie Baldwin MD [address] [facility] [place] [address] PCP - GeneralFamily Medicine10/30/24Team MemberRelationshipSpecialtyStart DateEnd Date Maggie Baldwin MD [address] [facility] [place] [address] PCP - GeneralFamily Medicine10/30/24Team MemberRelationshipSpecialtyStart DateEnd Date Maggie Baldwin MD [address] [facility] [place] [address] PCP - GeneralFamily Medicine10/30/24Team MemberRelationshipSpecialtyStart DateEnd Date Maggie Baldwin MD [address] [facility] [place] [address] PCP - GeneralFamily Medicine10/30/24Team MemberRelationshipSpecialtyStart DateEnd Date Maggie Baldwin MD [address] [facility] [place] [address] PCP - GeneralFamily Medicine10/30/24Team MemberRelationshipSpecialtyStart DateEnd Date Maggie Baldwin MD [address] [facility] [place] [address] PCP - GeneralFamily Medicine10/30/24Team MemberRelationshipSpecialtyStart DateEnd Date Maggie Baldwin MD [address] [place] [facility] [place] [address] PCP - GeneralFamily Medicine10/30/24Team MemberRelationshipSpecialtyStart DateEnd Date Maggie Baldwin MD [address] [place] [facility] [place] [address] PCP - Generalmi Medicine10/30/24Team MemberRelationshipSpecialtyStart DateEnd Date Maggie Baldwin MD [address] [place] [facility] [place] [address] [facility] - [facility]10/30/24Team MemberRelationshipSpecialtyStart DateEnd Date Maggie Baldwin MD [address] [facility] [place] [address] PCP - Generalmi Medicine10/30/24Team MemberRelationshipSpecialtyStart DateEnd Maggie Baldwin MD [address] [place] [facility] [place] [address] PCP - GeneralFami Medicine10/30/24Team MemberRelationshipSpecialtyStart DateEnd Date Maggie Baldwin MD [address] [place] [facility] [place] [address] PCP - GeneralFamily Medicine10/30/24 Reason for Visit (unrecogniz ed section and content) ReasonCommentsPainReasonCommentsFollow-upReasonCommentsCirculatory ProblemNew patient- testing done, pt c/o pain in mid lower abdominal area.Specialty Diagnoses / ProceduresReferred By ContactReferred To ContactVascular Surgery Diagnoses Pelvic congestion syndrome Maggie Baldwin MD [address] [facility] [place] [place] [address] Pcj Vascular Surg [address] [place] [address] Referral IDStatusReasonStart DateExpiration DateVisits RequestedVisits [id number] Review Specialty Services Required [id number]-roBzwmidXqrnsffqAjqk-nuYgpelaTmsypymz Post-opR TKA 11/17/24 FOR RECORDS PERTAINING TO PATIENTS WHO ARE [...] BE BASED ON THE PRIMARY CLINICAL RECORDS. [facility] [employer] [facility]. provides no warranty or guarantee of the accuracy or completeness of information in this document.
--- OUTSIDE RECORDS SUMMARY | 2025-04-08 11:27 | XMS_ITS | Clinical Summary ---
Author Organization [facility] Address [address] [place] [address] Phone Care Team Providers Care Plasterer Maintenance Name Role Phone Unavailable Primary Care Provider Unavailabl e Social History Tobacco UseTypesPacks/DayYears UsedDateSmoking Tobacco: Never Assessed CommentsUnknownSex and Gender InformationValueDate RecordedSex Assigned at Not on fileLegal AkuCgarnv72/21/2023 10:29 AM EDTGender IdentityNot on file Sexual OrientationNot on file Plan of Treatment Health MaintenanceDue DateLast DoneCommentsCT Fehidopnhjke1960Colonoscopy 1960Colorectal Cancer Ivotpcvuj1960FIT-DNA (Cologuard)1960FIT 1960Lipid Panel02/17/19607536Pnrswpovfnmwq1960Yearly Adult Physical 1960MMR Vaccines (1 of 1 - Standard series)02/16/1961Hepatitis C Screening 02/16/1978Cervical Cancer Figruidup41/01/1981HPV/Ihluul8302/16/1981Pap Smear 02/16/1981DTaP/Tdap/Td Vaccines (1 - Tdap)02/16/19828806Fgkpcekhu53/01/2000 Pneumococcal Vaccine (1 of 1 - PCV)02/16/2010Zoster Vaccines (1 of 2)02/16/2010 Influenza Vaccine (#1)5Bone Density Scan5COVID-19 Vaccine (1 - 2024- season)2025RSV High Risk: (Elderly (60+) or Population) (1 - 1-dose 75+ series)02/16/2035HIB VaccinesAged OutNo longer eligible based on patient's age to complete this topicHPV VaccinesAged OutNo longer eligible based on patient's age to complete this topicHepatitis A VaccinesAged OutNo longer eligible based on patient's age to complete this topicHepatitis B VaccinesAged OutNo longer eligible based on patient's age to complete this topicIPV Vaccines Aged OutNo longer eligible based on patient's age to complete this topic Meningococcal VaccineAged OutNo longer eligible based on patient's age to complete this topicRotavirus VaccinesAged OutNo longer eligible based on patient's age to complete this topic
--- OUTSIDE RECORDS SUMMARY | 2025-04-08 11:27 | XMS_ITS | Clinical Summary ---
Author Organization [facility] Address [address] [facility] [place] [address] Care Team Providers Care Child Protective Investigator Name Role Phone Unavailable Primary Care Provider Unavailabl e Source Comments The following information is NOT included in Care Everywhere downloads:Psychiatric notes, ECG results, Cardiac Rehab notes, Pulmonary Function notes, data from [employer] (includes but not limited toPregnancy data,audiograms, eye exams, pre-surgical evaluation notes, well-child exam data).[facility] Allergies No known active allergies Medications MedicationSigDispense QuantityRefillsLast FilledStart DateEnd DateStatus docusate sodium (COLACE) 100 MG capsule Take 1 Cap by mouth 2 times daily. 60 Cap ctive Active Problems ProblemNoted DateDiagnosed DateAdrenal fxqnyakc80/07/2013Rib zfybvvcln01/07/2013 L4 vertebral fzuusarp38/07/2013Lung egfaqtscp76/07/2013 Social History Tobacco UseTypesPacks/DayYears UsedDateSmoking Tobacco: NeverComments UnknownSex and Gender InformationValueDate RecordedSex Assigned at BirthNot on fileLegal OxkYanfqd49/06/2013 9:55 PM EDTGender IdentityNot on fileSexual OrientationNot on file Last Filed Vital Signs Vital SignReadingTime TakenCommentsBlood Ckbdmykb442/5309 7:00 PM EDT Skjtj4872 7:00 PM RKFNutifqnakxc52.8 ??C (98.2 ??F)02/22/2013 7:00 PM EDTRespiratory Ecaj488302/22/2013 7:00 PM EDTOxygen Syriujvtpd05%02/22/2013 7:00 PM EDTInhaled Oxygen Concentration--Ggfmeo41.6 kg (180 lb)02/22/2013 5:55 AM EDT Xffryf827.1 cm (5' 5 )02/22/2013 5:55 AM EDTBody Mass Index29.95002/22/2013 5:55 AM EDT Plan of Treatment Health MaintenanceDue DateLast GirsBagctrohVcqhdretiws1960Hepatitis C Oscrhizr58/01/1978Tdap Bsluxqu7002/16/1978Hepatitis A (HAV) Vaccine (optional start 19+ years)02/16/1979Tetanus (Td or Tdap) Vcupuhl9802/16/1979Pap Smear 02/16/19813923Iwpxlrqcjcs95/01/2000CRC Ctigtqwpu97/01/8060Pdasjogdxvn85/01/2005 Cologuard (Stool DNA)02/16/2005FIT02/16/2005Pneumococcal Vaccine(s) (50+ yrs) (1 of 1 - PCV)02/16/2010Shingles (RZV) Vaccine (1 of 2)02/16/2010Hepatitis B (HBV) Vaccine (optional start 60+ years)2020Bone Zemzazaaaqea23/01/2025OVID-19 Vaccine (1 - 2023-25 season)2025Influenza Vaccine (#1)2025RSV vaccine (adult) (1 - 1-dose 75+ series)02/16/2035 Insurance Advance Directives * Full Code (Latest Code Status on File) Date ActivatedDate InactivatedComments02/22/2013 6:44 AM02/22/2013 11:06 PM
[2025-04-08 11:47] LABS: Glucose Urine UA NEGATIVE (NEGATIVE)
[2025-04-08 12:20] LABS: Cast Seen? NONE SEEN #/LPF (NONE SEEN); Crystals Seen? None Seen #/HPF (None Seen); Urine Culture Indicated ALREADY ORDERED
== END 2025-04-08 11:19 | disposition home or self-care (01) ==
LOC: LAB 11:23
PROVIDERS: PCP Family Medicine; Visit Provider Family Medicine
DX: Z00.00 Encounter for general adult medical examination without abnormal findings (principal); N39.0 Urinary tract infection, site not specified; Z12.11 Encounter for screening for malignant neoplasm of colon
CPT/HCPCS: 81001; 87086; G0328

== ENCOUNTER 2025-04-13 08:42 | Outpatient (OUT) | payer OTHER, SELFPAY ==
--- OUTSIDE RECORDS SUMMARY | 2024-01-01 09:00 | XMS_ITS ---
Author Organization [facility] Address [address] [place] [address] Care Team Providers Care Actuarial Technician Name Role Phone Lazaroguzman Gus Primary Care Provider Cornelio Pineda [phone] Allergies No Known Allergies Results Component Value Reference Range Notes [facility] - PT/OT : EVAL AND TREAT 12 VISITS Reviewed date:02/28/2024 01:44:33 PM Interpretation: Performing Lab: Notes/Report: [facility] HIP LEFT W/ PELVIS 2-3V- [id number] Reviewed date:02/28/2024 01:44:41 PM Interpretation: Performing Lab: Notes/Report: [facility] HIP RIGHT W/PELVIS 2-3V- [id number] Reviewed date:02/28/2024 01:44:48 PM Interpretation: Performing Lab: Notes/Report: REASON FOR VISIT BILATERAL HIP PAIN - CT ABD AT [facility] Medications Medication SIG (Take, Route, Frequency, Duration) Notes Start Date End Date Status Iron 100 Plus ActiveaspirinActivemeloxicamActivesimvastatinActivepantoprazoleActivemetoprolol Active Social History Tobacco Use: Social History Observation Description Date Details (start date - stop date) Never Smoker NA - NA AUDIT-C (Standard) Question Answer Notes Did you have a drink containing alcohol in the p ast year? Yes How often did you have six or more drinks on one occasion in the past year? Declined to specify (0 point)How many drinks did you have on a typical day when you were drinking in the past year?Declined to specify (0 point)How often did you have a drink containing alcohol in the past year?Declined to specify (0 point)Aknwym1SljlkargergjdqUshcvndzBeupwpj Control (Standard) Question Answer Notes Tobacco use: Nonsmoker Problems Problem Type SNOMED Code ICD Code Onset Dates Problem Status W/U Status Risk Notes Problem 55850207 Pubic bone pain (M89.9) [id number] hernia, initial encounter (S39.81XA) [id number] in right hip (M25.551)Activeconfirmed [id number] in left hip (M25.552)Activeconfirmed Vital Signs Height 5'5 in 01/01/2024 Weight 210 lbs 01/01/2024 BMI 34.94 01/01/2024 Encounters Encounter Location Date Provider Diagnosis [facility] [address] [place] [address] [address] 01/01/2024 Cornelio Sloane Pain in right hip M25.551 ; Pain in left hip M25.552 and Pubic bone pain M89.9 Assessments Encounter Date Diagnosis (ICD Code) Assessment Notes Treatment Notes Treatment Clinical Notes Section Notes 01/01/2024 Pain in right hip (ICD-10 - M25. 551) 1. Degenerative changes. symphysis pubis. 2. Possible sports hernia. 3. Modified fibroid uterus. 4. Prominent right gonadal vein calcifications 4Pain in left hip (ICD-10 - M25.552) 1. Degenerative changes. symphysis pubis. 2. Possible sports hernia. 3. Modified fibroid uterus. 4. Prominent right gonadal vein calcifications 01/01/2024ubic bone pain (ICD-10 - M89.9) 1. Degenerative changes. symphysis pubis. 2. Possible sports hernia. 3. Modified fibroid uterus. 4. Prominent right gonadal vein calcifications 01/01/2024Otherfindings were discussed with the patient. she has been through a long course of conservative therapy, along with antibiotics. Further bladder infection. Standard physical therapy to help strengthen her abdominal wall. and use Aleve rknx-pox-picotjj. Return to the office as needed. 1. Degenerative changes. symphysis pubis. 2. Possible sports hernia. 3. Modified fibroid uterus. 4. Prominent right gonadal vein calcifications Plan Of Treatment Treatment Notes Assessment Notes Other findings were discus sed with the patient. she has been through a long course of conservative therapy, along with antibiotics. Further bladder infection. Standard physical therapy to help strengthen her abdominal wall. and use Aleve pyqp-xfa-bstppvc. Return to the office as needed. Next Appt Details Follow Up: prn, Reason: Progress Notes * EVERITA MDOB:1960 ([age] yo F)Acc No.[id number]:01/01/2024 Patient:?RITA PRADO :?Cornelio Anton, MDDOB:1960???Age:63 Y ???Sex:FemaleDate:4Phone:[phone]:[address] [address], [place], [id number]:Gus Herr Subjective: * Chief Complaints: * 1 . BILATERAL HIP PAIN - CT ABD AT [facility]. * HPI: ???HPI:?patient comes in today for evaluation. Complaining of pain more in the region of the pubic symphysis and the lower abdomen. The urologist. He I, which is treated.. Patient continues to be symptomatic. ???General Info per Patient Report:?Have you seen another doctor in this practice??No.?Side affected is?Bilateral.?Joint or body part affected is?back.?Pain occurred&#160 ;spontaneous.?Work related:?No.?Motor vehicle accident:?No.?Third constitution party res ponsibility:?No.?Quality of pain is?moderate.?Type of pain:?dull.?Have you been seen by a Dentist in the last year??Yes.?Do you have any dental problems??No.? * ROS: ???Musculoskeletal:?Joint pain?Yes.?Hematologic:?Anemia?Yes.? * Medical History: H igh Blood Pressure. * Surgical History: S houlder surgery 10 yrs ago. * Family History: N o Family History documented.. * Social History: E xercise regularly D o you exercise? N o. W hat is your place of residence? W here do you live? P rivate home. A RICHARDSON-C (Standard) D id you have a drink containing alcohol in the past year? Y es, H ow often did you have six or more drinks on one occasion in the past year? D eclined to specify (0 point), H ow many drinks did you have on a typical day when you were drinking in the past year? D eclined to specify (0 point), H ow often did you have a drink containing alcohol in the past year? D eclined to specify (0 point), P oints 0, I nterpretation N egative. T obacco Control (Standard) T obacco use: N onsmoker. * Medications: T aking metoprolol , Taking pantoprazole , Taking aspirin , Taking Iron 100 Plus , Taking meloxicam , Taking simvastatin , Medication List reviewed and reconciled with the patient * Allergies: N .K.D.A. Objective: * Vitals: H t: 5'5 , Wt: 210 lbs, BMI:34.94. * Examination: ???General examination: ???Patient is an age-appropriate 63-year-old female. Patient is in no acute distressand is alert and oriented x 3. Patient is appropriately dressed and appears to be well nourished. patient appears to have some discomfort directly over the symphysis pubis and the abdominal muscle insertion just above this area. Hip joints. Good range of motion without symptoms. ???X-ray Imaging Studies: ???AP pelvis and x-rays of the hips were obtained. The office. Pelvis x-rays shows the hip joints are in good position without evidence of any significant degenerative changes. There may be some mild degenerative changes involving the symphysis pubis. She has several calcifications noted in the anterior portion of her pelvis. ???MRI Imaging Studies: ???CT scan of the pelvis. 1. No acute intra-abdominal or pelvic process. 2. Hepatic steatosis 3. Sigmoid appeared to close this without diverticulitis 4. multi fibroid uterus, better appreciated on prior ultrasound 5. Prominent right glenoid O vein with calcifications along its course. Correlate with pelvic congestion syndrome. 6. Small fat-containing bilateral inguinal hernias. ??? Assessment: * Assessment: 1.?Pain in right hip - M25.551 (Primary)???2.?Pain in left hip - M25.552&#1 60;??3.?Pubic bone pain - M89.9???1. Degenerative changes. symphysis pubis. 2. Possible sports hernia. 3. Modified fibroid uterus. 4. Prominent right gonadal vein calcifications. Plan: * Treatment: ?LAB: [facility] - PT/OT : EVAL AND TREAT 12 VISITS (Collection Date & Time - 02/28/2024)2.?Others?Imaging: [facility] HIP LEFT W/ PELVIS 2-3V-[id number] (Performed Date - 02/28/2024) ?Imaging: [facility] HIP RIGHT W/PELVIS 2-3V- 61884 (Performed Date - 02/28/2024) Notes: findings were discussed with the patient. she has been through a long course of conservativetherapy, along with antibiotics. Further bladder infection. Standard physical therapy to help strengthen her abdominal wall. and use Aleve gwjr-rsl-ullieik. Return to the office as needed.?? * Procedures: ???[]. ? * Procedure Codes: 7 3502 X-RAY EXAM HIP UNI 2-3 VIEWS, Modifiers: RT , 94587 X-RAY EXAM HIP UNI 2-3 VIEWS, Modifiers: LT * Follow Up: p rn Forms: * Images: * Electronic signature of Cornelio Anton MD on 04/13/2025 at 08:46 AM EDTSign off status: Pending * Provider: Bailey Anton MD Date: 0 01/01/2024 Generated for Printing/Faxing/eTransmitting on:?04/13/2025 08:46 AM EDT History and Physical Notes * HPI (History of Present Illness) CategorySub-CategoryDetailNotesCategory NotesGeneral Info per Patient ReportSide affected isBilateralJoint or body part affected isbackPain occurredspontaneous Work related:NoMotor vehicle accident:NoQuality of pain ismoderateType of pain: dullHave you seen another doctor in this practice?NoThird constitution party responsibility: NoHave you been seen by a Dentist in the last year?YesDo you have any dental problems?NoHPIpatient comes in today for evaluation. Complaining of pain more in the region of the pubic symphysis and the lower abdomen. The urologist. He I, which is treated.. Patient continues to be symptomatic. Examination CategorySub-CategoryDetailNotesCategory NotesGeneral examination Patient is an age-appropriate 63-year-old female. Patient is in no acute distress and is alert and oriented x 3. Patient is appropriately dressed and appears to be well nourished. patient appears to have some discomfort directly over the symphysis pubis and the abdominal muscle insertion just above this area. Hip joints. Good range of motion without symptoms. X-ray Imaging StudiesAP pelvis and x-rays of the hips were obtained. The office. Pelvis x-rays shows the hip joints are in good position without evidence of any significant degenerative changes. There may be some mild degenerative changes involving the symphysis pubis. She has several calcifications noted in the anterior portion of her pelvis.MRI Imaging Studies CT scan of the pelvis. 1. No acute intra-abdominal or pelvic process. 2. Hepatic steatosis 3. Sigmoid appeared to close this without diverticulitis 4. multi fibroid uterus, better appreciated on prior ultrasound 5. Prominent right glenoid O vein with calcifications along its course. Correlate with pelvic congestion syndrome. 6. Small fat-containing bilateral inguinal hernias
--- OUTSIDE RECORDS SUMMARY | 2025-04-01 10:00 | XMS_ITS ---
Author Organization [facility] in [place] Address [address] [place] [address] Care Team Providers Care Power Truck Driver Name Role Phone Olman Herr Primary Care Provider [phone] Allergies No Known Allergies Results Component Value Reference Range Notes UA DIP NONAUTO WO MICRO (810 02) - IN OFFICE Reviewed date:04/01/2025 01:57:15 PM Interpretation: Performing Lab: Notes/Report: COLOR Yellow CLARITYClearGLUCOSENegBILIRUBINNegKETONENegSPECIFIC GRAVITY1.943NMSJNDyzWR4 PROTEINNegUROBILINOGENNegNITRITENegLEUKOCYTE ESTERASENeg REASON FOR VISIT UTI, Dysuria Medications Medication SIG (Take, Route, Frequency, Duration) Notes Start Date End Date Status Aspirin 325 MG 1 tablet Orally Once a day; Dura tion: 30 days ActiveSimvastatin 20 MGTAKE 1 TABLET BY MOUTH EVERY DAY IN THE EVENING; Duration: 90ActivePantoprazole Sodium 40 MG1 tablet 1/2 to 1 hour before morning meal Orally Once a day; Duration: 30 days5ActiveNitroglycerin 0.4 MG1 sl Q 5 min prn chest pain Eeywgjofwe99/09/2023ActiveAmoxicillin-Pot Clavulanate 875-125 MG1 tablet Orally every 12 hrs; Duration: 10 days5Active Metoprolol Tartrate 50 MGTAKE 1 TABLET BY MOUTH TWICE A DAY WITH FOOD FOR 30 DAYS; Duration: 90ActiveMeloxicam 15 MG1 tablet Orally Once a dayActiveIron 325 (65 Fe) MG1 tablet Orally once a day5Active Social History Tobacco Use: Social History Observation Description Date Details (start date - stop date) Former Smoker 06/18/1972 - 06/18/1999 Tobacco Use/Smoking Question Answer Notes Patient is a former smoker When did you start smoking?06/18/1972When did you stop smoking?06/18/1999How long has it been since you last smoked?> 10 yearsAUDIT-C (Standard) Question Answer Notes Did you have a drink containing alcohol in the p ast year? No Esrlfr8LlgihjrjldxltbKcpxqnlv Vital Signs Weight 225.0 lbs 04/01/2025 Height 65 in 04/01/2025 Blood pressure systolic 124 mm Hg 04/01/20 25 Blood pressure diastolic 82 mm Hg 025 BMI 37.44 kg/m2 04/01/2025 Encounters Encounter Location Date Provider Diagnosis [facility] [address] [place] [address] 04/01/2025 Olman Herr Dysuria R30.0 and UT I (urinary tract infection), uncomplicated N39.0 Assessments Encounter Date Diagnosis (ICD Code) Assessment Notes Treatment Notes Treatment Clinical Notes Section Notes 04/01/2025 Dysuria (ICD-10 - R30.0) 04/01/2025UTI (urinary tract infection), uncomplicated (ICD-10 - N39.0)Hx ecoli infection - if nto better - need ct scan abd and pelvis Plan Of Treatment Medication Medication Name Sig Start Date Stop Date Notes Amoxicillin-Pot Clavulanate 875-125 MG 1 tablet Orally every 12 hrs; Duration: 10 days 04/01/2025 Treatment Notes Assessment Notes UTI (urinary tract infection), uncomplic ated Hx ecoli infection - if nto better - need ct scan abd and pelvis Next Appt Details Follow Up: 3-5 days if no im provement, Reason: Progress Notes * Michelle MOON MDOB:1960 ([age] yo F)Acc No.[id number]:04/01/2025 Progress Note Patient: Afsaneh Michelle JUAREZ :?Gus Herr ([facility]), MDDOB:1960???Age: 65 Y???Sex:FemaleDate:04/01/2025Phone:[phone]:[address]Check In:01:47 PM ESTCheck Out:02:13 PM EST Subjective: * Chief Complaints: * U TIDysuria * HPI: ???General:? no wel issues been going on 3 days - getting worse feels like when had kidney infection before. ???UTI:?The patient complains of?symptoms of UTI.?The symptoms have been present for?1-2 days.?The symptoms are?moderate.?Symptomatic treatment has included?OTC Medication.?Associated symptoms include?increased urge to urinate, painful urination, pelvic pain.? * ROS: ???General/Constitutional:?Malaise?denies.?Chills?denies.?Fever?denies.?Skin:?Rash?denies.?Cardiovascular:?Edema?denies.?Palpitations?denies.?Respiratory:?Chest pain?denies.?Cough?denies.?Gastrointestinal:?Abdominal pain?denies.?Nausea?denies.?Vomiting?denies.?Genitourinary:?Comments?See HPI for details.?Skin:?Rash?denies.? * Active Problem List I10 Benign essential HTN Modified On:08/22/2022W/U Status:egvcbulwmK18.11Unilateral primary osteoarthritis, right knee Modified On:07/02/2023W/U Status:ccinsnwblP91.00Dyspnea Modified On:07/09/2023/U Status:nspxierlbK55.31Abnormal EKG Modified On:07/09/2023/U Status:cjfncuejyN08.90Acute sinus infection Modified On:08/01/2023/U Status:atxujaqyfR20.9Vitamin D deficiency, unspecified Modified On:10/03/2023U Status:prsgitsbcF47.20Bilateral inguinal hernia, without obstruction or gangrene, not specified as recurrent Modified On:12/13/2023 Status:izlohkiqoF81.9Leiomyoma of uterus, unspecified Modified On:12/13/2023 Status:iyzoiggcqY74.90Diverticulosis of intestine, part unspecified, without perforation or abscess without bleeding Modified On:12/13/2023U Status:rjiuroecnS11.9Gastroenteritis Modified On:04/02/2024U Status:oayedmjdoO01.9Knee osteoarthritis Modified On:11/04/2024 Status:confirmed * Medical History: * Surgical History: L eft Superficial Parotidectomy 08/2017Urethral dilation 2014Rotator Cuff repair, right Colonoscopy- Dr Marvin 05/12/2024Gelsyn Injection- Dr Delaney 05/27/2024 * Hospitalization/Major Diagno stic Procedure: D enies Past Hospitalization * Family History: F ather: alive, diagnosed with Cancer. M other: alive, diagnosed with Heart Disease. B rother(s): alive. S ister(s): alive. S on(s): alive. D parul(s): alive. 2 brother(s) , 1 sister(s) - healthy. 1 son(s) , 2 daughter(s) - healthy. . * Social History: ???Tobacco Use:?Tobacco Use/Smoking?Patient is a?former smoker ?When did you start smoking??06/18/1972 ?When did you stop smoking??06/18/1999 ?How long has it been since you last smoked? > 10 years ???Drug/Alcohol:?AUDIT-C (Standard)?Did you have a drink containing alcohol in the past year??No ?Points?0 ?Interpretation?Negative * Medications: T akingAspirin 325 MG Tablet 1 tablet Orally Once a day Iron 325 (65 Fe) MG Tablet 1 tablet Orally once a day Meloxicam 15 MG Tablet 1 tablet Orally Once a day Metoprolol Tartrate 50 MG Tablet TAKE 1 TABLET BY MOUTH TWICE A DAY WITH FOOD FOR 30 DAYS Nitroglycerin 0.4 MG Tablet Sublingual 1 sl Q 5 min prn chest pain Sublingual Pantoprazole Sodium 40 MG Tablet Delayed Release 1 tablet 1/2 to 1 hour before morning meal Orally Once a day Simvastatin 20 MG Tablet TAKE 1 TABLET BY MOUTH EVERY DAY IN THE EVENING Medication List reviewed and reconciled with the patientTaking Aspirin 325 MG Tablet 1 tablet Orally Once a day Taking Iron 325 (65 Fe) MG Tablet 1 tablet Orally once a day Taking Meloxicam 15 MG Tablet 1 tablet Orally Once a day Taking Metoprolol Tartrate 50 MG Tablet TAKE 1 TABLET BY MOUTH TWICE A DAY WITH FOOD FOR 30 DAYS Taking Nitroglycerin 0.4 MG Tablet Sublingual 1 sl Q 5 min prn chest pain Sublingual Taking Pantoprazole Sodium 40 MG Tablet Delayed Release 1 tablet 1/2 to 1 hour before morning meal Orally Once a day Taking Simvastatin 20 MG Tablet TAKE 1 TABLET BY MOUTH EVERY DAY IN THE EVENING Medication List reviewed and reconciled with the patient * Allergies: N .K.D.A.no[Allergies Verified] Objective: * Vitals: W t:225.0lbs, Ht: 65 in, BP:124/82mm Hg, BMI:37.44Index, Ht-cm: 165.1 cm, Wt-k.06 kg. * Examination: ???General Examination: ?GENERAL APPEARANCE:?well developed, well nourished, in no acute distress.?ENT:? ear and nose external appearance normal.?ENMT:? tongue, hard and soft palate and posterior pharynx appear normal.?LYMPH NODES:?no axillary, supraclavicular or inguinal adenopathy.?LUNGS:?clear to auscultation bilaterally.?CARDIO:?S1, S2 normal, no murmurs, rubs, gallops.?ABDOMEN:?soft, nontender, nondistended.?GENITOURINARY:? Bladder non-distended, urethra normal. ?MUSCULOSKELETAL:? full range of motion - does have some mild cva tenderness.?SKIN:? no rashes, warm and dry.?NEUROLOGIC:? alert and oriented to time, place, & person.?PSYCH:? mood/affect full range.? Assessment: * Assessment: 1.?Dysuria - R30.0 (Primary)???2.?UTI (urinary tract infection), uncomplicated - N39.0??? Plan: * Treatment: Start Amoxicillin-Pot Clavulanate Tablet, 875-125 MG, 1 tablet, Orally, every 12 hrs, 10 days, 20 Tablet, Refills 0.?LAB: UA DIP NONAUTO WO MICRO (58614) - IN OFFICE (Collection Date & Time - 04/01/2025)2.?UTI (urinary tract infection), uncomplicated? Notes: Hx ecoli infection - if nto better - need ct scan abd and pelvis?? * Labs: * L ab: UA DIP NONAUTO WO MICRO (06631) - IN OFFICE (Collection Date & Time - 04/01/2025) ?ValueReference Range?COLORYellow * C LARITY Clear * G LUCOSE Neg * B ILIRUBIN Neg * K ETONE Neg * S PECIFIC GRAVITY 1.010 * B LOOD Neg * P H 6 * P ROTEIN Neg * U ROBILINOGEN Neg * N ITRITE Neg * L EUKOCYTE ESTERASE Neg * Procedure Codes: 8 1000 URINALYSIS, Modifiers: QW 32896 URINALYSIS WO MICRO * Follow Up: 3 -5 days if no improvement * * Sign off status: CompletedVisit Status:?CHK (Check Out) true * Provider: Jose Herr ([facility])MD Date: 1 Generated for Printing/Faxing/eTransmitting on:?04/13/2025 08:45 AM EDT History and Physical Notes * HPI (History of Present Illness) CategorySub-CategoryDetailNotesCategory NotesGeneral no wel issues been going on 3 days - getting worse feels like when had kidney infection before UTIThe patient complains ofsymptoms of UTIThe symptoms have been present for1-2 daysThe symptoms aremoderateSymptomatic treatment has includedOTC Medication Associated symptoms includeincreased urge to urinate, painful urination, pelvic pain Examination CategorySub-CategoryDetailNotesCategory NotesGeneral ExaminationGENERAL APPEARANCE:well developed, well nourished, in no acute distressENT:ear and nose external appearance normalCARDIO:S1, S2 normal, no murmurs, rubs, gallopsLUNGS: clear to auscultation bilaterallyABDOMEN:soft, nontender, nondistended NEUROLOGIC:alert and oriented to time, place, & personSKIN:no rashes, warm and dryMUSCULOSKELETAL:full range of motion - does have some mild cva tenderness LYMPH NODES:no axillary, supraclavicular or inguinal adenopathyPSYCH:mood/affect full rangeENMT:tongue, hard and soft palate and posterior pharynx appear normal GENITOURINARY:Bladder non-distended, urethra normal
--- OUTSIDE RECORDS SUMMARY | 2025-04-08 05:47 | XMS_ITS ---
Author Organization [facility] in [place] Address [address] [place] [address] Care Team Providers Care Service Delivery Manager Name Role Phone Olman Herr Primary Care Provider REASON FOR VISIT Update Encounters Encounter Location Date Provider Diagnosis [facility] [address] [place] [address] 04/08/2025 Olman Herr UTI (urinary tract infection) N39.0 Assessments Encounter Date Diagnosis (ICD Code) Assessment Notes Treatment Notes Treatment Clinical Notes Section Notes 04/08/2025 UTI (urinary tract infection) (I CD-10 - N39.0) Plan Of Treatment Pending Test Test Name Order Date UA (URINALYSIS, COMPLETE) 04/08/2025 CULTURE URINE 04/08/2025 Progress Notes * Michelle PRADO MDOB:1960 ([age] yo F)Acc No.[id number]:04/08/2025 Patient:?Michelle PRADO :1960???Age:65 Y???Sex:FemalePhone:[phone] Address:[address] [place] [address], [place] [address] Subjective: * Chief Complaints: * U pdate * Medical History: * Surgical History: * Hospitalization/Major Diagno stic Procedure: * Medications: Objective: * Vitals: * Physical Examination: ??? Assessment: * Assessment: 1.?UTI (urinary tract infection) - N39.0 (Primary)??? Plan: * Treatment: ?LAB: UA (URINALYSIS, COMPLETE) ?LAB: CULTURE URINE * Procedure Codes: * true * Date:?Generated for Printing/Faxing/eTransmitting on:?04/13/2025 08:44 AM EDT
--- OUTSIDE RECORDS SUMMARY | 2025-04-08 08:42 | XMS_ITS ---
Author Organization The [facility] in [place] Address [address] [place] [address] Care Team Providers Care Armhole Raiser Lockstitch Name Role Phone Olman Herr Primary Care Provider REASON FOR VISIT Review UA Encounters Encounter Location Date Provider Diagnosis [facility] [address] [place] [address] 04/08/2025 Olman Herr Lumbar pain M54.50 a nd Dysuria R30.0 Assessments Encounter Date Diagnosis (ICD Code) Assessment Notes Treatment Notes Treatment Clinical Notes Section Notes 04/08/2025 Lumbar pain (ICD-10 - M54.50) 04/08/2025Dysuria (ICD-10 - R30.0) Plan Of Treatment Pending Test Test Name Order Date US Renal and Bladder 04/08/2025 XR LSPINE 2_3 VIEWS 04/08/2025 Progress Notes * Michelle PRADO MDOB:1960 ([age] yo F)Acc No.[id number]:04/08/2025 Patient:?Michelle PRADO :1960???Age:65 Y???Sex:FemalePhone:[phone] Address:[address] [place] [address], [place] [address] Subjective: * Chief Complaints: * R eview UA * Medical History: * Surgical History: * Hospitalization/Major Diagno stic Procedure: * Medications: Objective: * Vitals: * Physical Examination: ??? Assessment: * Assessment: 1.?Lumbar pain - M54.50 (Primary)???2.?Dysuria - R30.0??? Plan: * Treatment: ?Imaging: XR LSPINE 2_3 VIEWS2.?Dysuria?Imaging: US Renal and Bladder* with PVR * Procedure Codes: * true * Date:?Generated for Printing/Faxing/eTransmitting on:?04/13/2025 08:44 AM EDT
--- OUTSIDE RECORDS SUMMARY | 2025-04-08 13:44 | XMS_ITS ---
Author Organization [facility] Address [address] [place] [address] Care Team Providers Care Gear Nicker Name Role Phone Nemesio Olman Primary Care Provider [phone] Reason For Referral Diagnosis 1 Heartburn (R12) Diagnosis 2 Occult blood positiv e stool (R19.5) Referral Organization [facility] Referring Provider First Name Olman Referring Provider Last Name Nemesio Referring Provider Speciality Family Med chiquita Referred Provider Mack Bowen Referred Provider Specialty General Surg david Referral Priority Routine REASON FOR VISIT + OB- referral dr bowen Medications Medication SIG (Take, Route, Frequency, Duration) Notes Start Date End Date Status Pantoprazole Sodium 40 MG 1 tablet 1/2 t o 1 hour before morning meal Orally twice a day; Duration: 30 days 10/31/2024tive Encounters Encounter Location Date Provider Diagnosis [facility] [address] [place] [address] 04/08/2025 Olman Herr Heartburn R12 and Positive occult stool blood test R19.5 Assessments Encounter Date Diagnosis (ICD Code) Assessment Notes Treatment Notes Treatment Clinical Notes Section Notes 04/08/2025 Heartburn (ICD-10 - R12) 04/08/2025Positive occult stool blood test (ICD-10 - R19.5) Plan Of Treatment Medication Medication Name Sig Start Date Stop Date Notes Pantoprazole Sodium 40 MG 1 tablet 1/2 t o 1 hour before morning meal Orally twice a day; Duration: 30 days 10/31/2024 Referrals Referral Date Details 04/09/2025 04/09/2025Mack Progress Notes * Michelle MOON MDOB:1960 ([age] yo F)Acc No.[id number]:04/08/2025 Patient:?Michelle MOON M :1960???Age:65 Y???Sex:FemalePhone:[phone] Address:[address] [place] [address] * Refills Refill Pantoprazole Sodium Tablet Delayed Release, 40 MG, Orally, 60 Gram, 1 tablet 1/2 to 1 hour before morning meal, twice a day, 30 days, Refills=11 Subjective: * Chief Complaints: * + OB- referral dr bowen * Medical History: * Surgical History: * Hospitalization/Major Diagno stic Procedure: * Medications: Objective: * Vitals: * Physical Examination: ??? Assessment: * Assessment: 1.?Heartburn - R12 (Primary)???2.?Positive occult stool blood test - R19.5& #160;?? Plan: * Treatment: ? Referral To:Mack Bowen??General Surgery ?Reason: 2.?Others? Refill Pantoprazole Sodium Tablet Delayed Release, 40 MG, 1 tablet 1/2 to 1 hour before morning meal, Orally, twice a day, 30 days, 60 Gram, Refills 11.? Referral To:Mack Bowen??General Surgery ?Reason: * Procedure Codes: * true * Date:?Generated for Printing/Faxing/eTransmitting on:?04/13/2025 08:44 AM EDT Consultation Request Notes Referral Date Referring Provider Referred Provider Not es 04/09/2025 Olman Herr Michael
--- OUTSIDE RECORDS SUMMARY | 2025-04-08 20:37 | XMS_ITS | Continuity of Care Document ---
Author Organization [facility] Address [address] [place] [address] Phone Care Team Providers Care Salesforce Trainer Name Role Phone Gus Herr MD Primary Care Provider [phone] Gus Herr MD Attending Provider Care Teams Patient Care Team Team Status: Active Member Role/Relationship Status Dates Gus Herr MD Primary Care Provider Active Patient Care Team Team Status: Inactive Member Role/Relationship Status Dates Gus Herr MD Primary Care Provider Active Start: April 08, 2025 End: April 08, 2025Dosrinivasa Herr MDAttending ProviderActiveStart: April 08, 2025 End: April 08, 2025 Chief Complaint and Reason for Visit Chief Complaint Admit Date Unknown April 08, 2025 1 1:26am Social History Smoking Status Unknown if ever smoked Observation Status Observation Response Date of Response Legal Sex Female (finding) Sex Assigned At BirthFemaleSept1959 Procedures Procedure Date Performed Status Urine Culture April 08, 2025 active Advance Directives Advance Directive Response Recorded Date/ Time Advance Directives No February 6:48am Insurance Providers Guarantor Michelle Rodriguez Address [address] [facility] [address] [place] [address] [place] [address]Vsqcyno Info.Home Phone: Payer Group Member ID Coverage Type Subscriber Relationship to Subscriber Effective Date Expiration Date [employer] Id: [id number] [employer] Id: [id number] [address] [facility] [address] [place] [address] [address] Home Phone: Self Encounters Encounter Location(s) Arrival/Admit Date Discharge/Departure Date Discharge/Departure Disposition Provider(s) Departed Referred -[facility] April 08, 2025 11:26am April 08, 2025 11:27am Discharged to home care or self care (routine discharge) Archie Adame MD Plan of Treatment Future Tests Future scheduled test information is unavailable Pending Tests Test Name Ordered Date Scheduled Date Urine Culture April 08, 2025 11:26am Future Visits Future appointment information is unavailable Future Procedures Procedure Name Ordered Date Scheduled Date Urine Culture April 08, 2025 1:33pm Octobe r 2024 11:26am Future Medications Future medication information is unavailable Patient Instructions Patient instructions are unavailable
--- OUTSIDE RECORDS SUMMARY | 2025-04-13 08:44 | XMS_ITS | Clinical Summary ---
Author Organization [facility] Address [address] [facility] [place] [address] Care Team Providers Care Retail Center Receptionist Name Role Phone Unavailable Primary Care Provider Unavailabl e Source Comments The following information is NOT included in Care Everywhere downloads:Psychiatric notes, ECG results, Cardiac Rehab notes, Pulmonary Function notes, data from [employer] (includes but not limited toPregnancy data,audiograms, eye exams, pre-surgical evaluation notes, well-child exam data).[facility] Allergies No known active allergies Medications MedicationSigDispense QuantityRefillsLast FilledStart DateEnd DateStatus docusate sodium (COLACE) 100 MG capsule Take 1 Cap by mouth 2 times daily. 60 Cap ctive Active Problems ProblemNoted DateDiagnosed DateAdrenal vkkfbifx83/07/2013Rib hdgyquvmx65/07/2013 L4 vertebral cqcygrsw33/07/2013Lung cjuiijxfy67/07/2013 Social History Tobacco UseTypesPacks/DayYears UsedDateSmoking Tobacco: NeverComments UnknownSex and Gender InformationValueDate RecordedSex Assigned at BirthNot on fileLegal LtnCsvsno94/06/2013 9:55 PM EDTGender IdentityNot on fileSexual OrientationNot on file Last Filed Vital Signs Vital SignReadingTime TakenCommentsBlood Hoozycvv155/5309 7:00 PM EDT Qyqjy1684 7:00 PM VIGJpybukixgus86.8 ??C (98.2 ??F)02/22/2013 7:00 PM EDTRespiratory Yvhh700402/22/2013 7:00 PM EDTOxygen Njvyuoeeje61%02/22/2013 7:00 PM EDTInhaled Oxygen Concentration--Cgepmz46.6 kg (180 lb)02/22/2013 5:55 AM EDT Eeffvf821.1 cm (5' 5 )02/22/2013 5:55 AM EDTBody Mass Index29.95002/22/2013 5:55 AM EDT Plan of Treatment Health MaintenanceDue DateLast VlxbUvyxfiizSakwtvnjwab1960Hepatitis C Oenjvpup91/01/1978Tdap Amkoumh7602/16/1978Hepatitis A (HAV) Vaccine (optional start 19+ years)02/16/1979Tetanus (Td or Tdap) Bqhkttx3702/16/1979Pap Smear 02/16/19819196Xdyebgbbplk81/01/2000CRC Rhcpbmbos75/01/8579Jkzqhmsbgew24/01/2005 Cologuard (Stool DNA)02/16/2005FIT02/16/2005Pneumococcal Vaccine(s) (50+ yrs) (1 of 1 - PCV)02/16/2010Shingles (RZV) Vaccine (1 of 2)02/16/2010Hepatitis B (HBV) Vaccine (optional start 60+ years)2020Bone Uucnpvnjkygn21/01/2025OVID-19 Vaccine (1 - 2024-26 season)2025Influenza Vaccine (#1)2025RSV vaccine (adult) (1 - 1-dose 75+ series)02/16/2035 Insurance Advance Directives * Full Code (Latest Code Status on File) Date ActivatedDate InactivatedComments02/22/2013 6:44 AM02/22/2013 11:06 PM
--- OUTSIDE RECORDS SUMMARY | 2025-04-13 08:44 | XMS_ITS | Clinical Summary ---
Author Organization [facility] Address [address], [address] [place] [address] Care Team Providers Care Spot Man Name Role Phone Gus Herr MD Primary Care Provider [phone] Allergies No known active allergies Medications MedicationSigDispense QuantityRefillsLast FilledStart DateEnd DateStatus simvastatin (ZOCOR) 20 MG tablet 1 zdxtru8410/23/2023ctive meloxicam (MOBIC) 15 MG tablet Take 1 tablet by mouth dailyActive Carbonyl Iron (IRON CHEWS PEDIATRIC) 15 MG CHEW Take by mouth10/23/2023ctive Aspirin 81 MG CAPS Take 81 mg by mouth10/23/2023ctive pantoprazole (PROTONIX) 40 MG tablet Take 1 tablet by mouth dailyActive metoprolol tartrate (LOPRESSOR) 50 MG tablet TAKE 1 TABLET BY MOUTH TWICE A DAY WITH FOOD FOR 30 DAYSActive clindamycin (CLEOCIN) 2 % vaginal cream Place vaginally nightly. For 3 nights. 1 each 12/17/2023ctive Family History Medical HistoryRelationNameCommentsCancerFatherlungHeart DiseaseMotherRelation NameStatusCommentsBrother 1AliveBrother 2AliveBrother 3DeceasedFatherAlive Maternal GrandfatherDeceasedMaternal GrandmotherDeceasedMotherAlivePaternal GrandfatherDeceasedPaternal GrandmotherDeceasedSisterAlive Social History Tobacco UseTypesPacks/DayYears UsedDateSmoking Tobacco: NeverSmokeless Tobacco: Never Tobacco Cessation:Counseling Given: Not Answered Alcohol UseStandard Drinks/WeekCommentsYes0 (1 standard drink = 0.6 oz pure alcohol)socialOverall Financial Resource Strain (CARDIA)AnswerDate RecordedHow hard is it for you to pay for the very basics like food, housing, medical care, and heating?Not hard at all11/29/2023HQ-2AnswerDate RecordedPHQ-9 Total Score0 11/29/2023Hunger Vital SignAnswerDate RecordedWithin the past 12 months, you worried that your food would run out before you got the money to buymore.Never true11/29/2023Within the past 12 months, the food you bought just didn't last and you didn't have money to get more.Never true11/29/2023RAPARE - TransportationAnswerDate RecordedLack of Transportation (Medical)Not on file 11/29/2023In the past 12 months, has lack of transportation kept you from meetings, work, or from getting things needed for daily living?No11/29/2023 Housing Stability Vital SignAnswerDate RecordedUnable to Pay for Housing in the Last YearNot on file11/29/2023Number of Places Lived in the Last YearNot on file 11/29/2023In the last 12 months, was there a time when you did not have a steady place to sleep or slept in ashelter (including now)?No11/29/2023Food Insecurity AnswerDate RecordedWithin the past 12 months, you worried that your food would run out before you got the money to buymore.Within the past 12 months, the food you bought just didn't last and you didn't have money to get more.regnantCommentsNoSex and Gender InformationValueDate Recorded Sex Assigned at BirthNot on fileLegal JroHvzhjl11/10/2013 8:44 AM ESTGender IdentityNot on fileSexual OrientationNot on file Last Filed Vital Signs Vital SignReadingTime TakenCommentsBlood Qdiixwpa622/8611/29/2023 10:58 AM EDT Pulse--Temperature--Respiratory Rate--Oxygen Saturation--Inhaled Oxygen Concentration--Alfitl08.3 kg (210 lb)11/29/2023 10:58 AM KADPmbupo021.1 cm (5' 5 )11/29/2023 10:58 AM EDTBody Mass Index34.95011/29/2023 10:58 AM EDT Plan of Treatment Health MaintenanceDue DateLast RzgwVewqrtvtIosagn25/01/1970HIV akmpeg9902/16/1975 Hepatitis C wbohyb0102/16/1978DTaP/Tdap/Td vaccine (1 - Tdap)02/16/1979Colonoscopy 02/16/2005Colorectal Cancer Tpsvro8202/16/2005FIT/FOBT: Average risk02/16/2005 Fecal-DNA (Cologuard): Average risk02/16/2005Sigmoidoscopy/CT colonography 02/16/2005Pneumococcal 50+ years Vaccine (1 of 1 - PCV)02/16/2010Shingles vaccine (1 of 2)02/16/2010DEXA (modify frequency per FRAX score)02/16/2015Breast cancer rzzruk06, 11/16/2014, 09/09/2013Depression Screen /Flu vaccine (#1)/, 04/11/2021, 03/01/2020, Additional history existsCOVID-19 Vaccine (2 - season) 503/ap smearervical cancer screen 11/28/2028HPV (without or with Pap)4Respiratory Syncytial Virus (RSV) or age 60 yrs+ (1 - 1-dose 75+ series)02/16/2035Hepatitis A vaccineAged OutNo longer eligible based on patient's age to complete this topic Hepatitis B vaccineAged OutNo longer eligible based on patient's age to complete this topicHib vaccineAged OutNo longer eligible based on patient's age to complete this topicMeningococcal (ACWY) vaccineAged OutNo longer eligible based on patient's age to complete this topicMeningococcal B vaccineAged OutNo longer eligible based on patient's age to complete this topicPolio vaccineAged OutNo longer eligible based on patient's age to complete this topic Procedures Procedure NamePriorityDate/TimeAssociated DiagnosisCommentsHUMAN PAPILLOMAVIRUS (HPV) DNA PROBE THIN PREP HIGH BENIAobygxb89/13/2024 12:00 AM EDT LAST PICKER UVOOVYTECnvaddk97/13/2024 12:00 AM EDT ROSALIND DIGITAL SCREEN W OR WO CAD FADBLLLCBZrsdkhh65/28/2016 5:32 PM EDT Screening from Last 3 Months or Most Recently Relevant to Health Maintenance Results * Human papillomavirus (HPV) DNA probe thin prep high risk (11/29/2023 12:00 AM EDT)ComponentValueRef RangeTest MethodAnalysis TimePerformed AtPathologist SignatureSpecimen DescriptionCERVICAL XVNFQOHG02/13/2024 12:00 AM EDTMERCY LABORATORIESHPV Sample.THIN PREP11/29/2023 12:00 AM EDTMERCY LABORATORIESHPV, Genotype 16Not DetectedNot Dbfcmpwf34/13/2024 12:00 AM EDTMERCY LABORATORIES HPV, Genotype 18Not DetectedNot Jsxfxzro02/13/2024 12:00 AM EDTMERCY LABORATORIESHPV, High Risk OtherNot DetectedNot Wjbiwwpb62/13/2024 12:00 AM EDTMERCY LABORATORIESHPV, Jznznerhhzxuok36/13/2024 12:00 AM EDTMERCY LABORATORIESComment: This test amplifies and detects DNA of 14 high-risk HPV types associated with cervical cancer and its precursor lesions (HPV types 16,18, 31, 33, 35, 39, 45, 51, 52, 56, 58, 59, 66, and 68). ? Sensitivity may be affected by specimen collection methods, stage of infection, and the presence of interfering substances. Results should be interpreted in conjunction with other available laboratory and clinical data. A negative high-risk HPV result does not exclude the possibility of future cytologic HSIL or underlying CIN2-3 or cancer. ? This test is intended for medical purposes only and is not valid for the evaluation of suspected sexual abuse or for other forensic purposes. Specimen (Source)Anatomical Location / LateralityCollection Method / Volume Collection TimeReceived TimeCERVICAL YJLUECMN11/13/2024 Narrative Authorizing ProviderResult TypeResult StatusSusan Niru Yoo ADVERTISING SALES ASSOCIATE - CNM HEMATOLOGY ORDERABLESFinal ResultPerforming OrganizationAddressCity/State/ZIP CodePhone Number [facility] [address] [place] [address], [facility] [phone] [facility] [address] [id number], [facility] [phone] * LAST PICKER Cytology (11/29/2023 12:00 AM EDT)ComponentValueRef RangeTest Method Analysis TimePerformed AtPathologist SignatureCytology ReportPath Number: [id number] DIAGNOSIS Imaged ThinPrep Pap - Cervical (1 monolayer slide): Specimen Adequacy: ? Satisfactory for evaluation. ? - Endocervical/transformation zone component present. Descriptive Diagnosis: ? Negative for intraepithelial lesion or malignancy. ?? Cytotech Screener: ??EY Electronically Signed Out Abida Stratton CT(ASCP) /12/12/2023 Procedure/Addendum HPV Procedure Report ? Date Ordered: ? 11/30/2023 ? Status: Signed Out ? Date Complete: ? 12/03/2023 ? By: System Interface ? Date Reported: ? 12/03/2023 ? Sample: ??HPV Type 16 ?Result: ?? Not Detected ?Ref Range: (Not Detected) Sample: ??HPV Type 18 ?Result: ?? Not Detected ?Ref Range: (Not Detected) Sample: ??Other High Risk HPV ?Result: ?? Not Detected ?Ref Range: (Not Detected) Sample: ??HPV Interp ?Result: ? Ref Range: (Not Detected) This test amplifies and detects DNA of 14 high-risk HPV types associated with cervical cancer and its precursor lesions (HPV types 16,18, 31, 33, 35, 39, 45, 51, 52, 56, 58, 59, 66, and 68). ? Sensitivity may be affected by specimen collection methods, stage of infection, and the presence of interfering substances. Results should be interpreted in conjunction with other available laboratory and clinical data. A negative high-risk HPV result does not exclude the possibility of future cytologic HSIL or underlying CIN2-3 or cancer. ? This test is intended for medical purposes only and is not valid for the evaluation of suspected sexual abuse or for other forensic purposes. Performed at [address] [address] ([phone] ?? Source of Specimen: A: Imaged ThinPrep Pap - Cervical (1 monolayer slide) HPV Reflex?......................HPV Regardless Clinical History Postmenopausal Z12.4 Encounter for screening for malignant neoplasm of cervix Processing Lab: [address] [address] Interpretation performed at [address] [address] This Pap Test has been evaluated with [...] GYNECOLOGIC CYTOLOGY REPORT Patient Name: MICHELLE PRADO [facility] Rec: [id number] [facility] ??[facility] ANATOMIC PATHOLOGY [address] [place] [address]. ??[place], [place] [address] bon [facility] [email or web address].[facility] LABSSpecimen (Source)Anatomical Location / LateralityCollection Method / VolumeCollection TimeReceived Time CERVICAL KTRKPPMB86/ 7:20 AM EDT Narrative Authorizing ProviderResult TypeResult StatusSusan Niru Yoo ADVERTISING SALES ASSOCIATE - CNM PATHOLOGY/CYTOLOGY ORDERABLESFinal ResultPerforming OrganizationAddress City/State/ZIP CodePhone Number [facility] [address] [place] [address], [facility] [phone] [facility] * ROSALIND Digital Screen Bilateral (12/14/2015 5:32 PM EDT)Anatomical Region LateralityModalityBreastBilateralMammographySpecimen (Source)Anatomical Location / LateralityCollection Method / VolumeCollection TimeReceived Time 12/14/2015 5:34 PM EDT Narrative 12/14/2015 6:12 PM EDT Bilateral digital screening mammograms with CAD. Reason for examination: Asymptomatic screening. Views: Bilateral CC, MLO views. In comparison with the studies of 06/29/2009, 09/09/2013, and 11/16/2014, there has been no significantinterval change. There is heterogeneously dense fibroglandular tissue within the breasts, somewhat limiting mammographic evaluation. No discrete or spiculated mass lesion or suspicious calcifications are seen. Impression: No mammographic evidence of malignancy. Recommendation: Routine screening mammograms in one year would be appropriate for a patient in thisage group. BI-RADS Category 1: Negative. Final report [...] by Luis Dillon on 12/14/2015 6:12 PM Authorizing ProviderResult TypeResult StatusAndrea R St. [facility] MAMMOGRAPHY ORDERABLESFinal Result from Last 3 Months or Most Recently Relevant to Health Maintenance Care Teams Team MemberRelationshipSpecialtyStart DateEnd Date Gus Herr MD [address] [place] [address] PCP - General09/02/13
--- OUTSIDE RECORDS SUMMARY | 2025-04-13 08:45 | XMS_ITS | Clinical Summary ---
Author Organization [facility] Address [address] [place] [address] Phone Care Team Providers Care Restaurant Managing Partner Name Role Phone Unavailable Primary Care Provider Unavailabl e Social History Tobacco UseTypesPacks/DayYears UsedDateSmoking Tobacco: Never Assessed CommentsUnknownSex and Gender InformationValueDate RecordedSex Assigned at Not on fileLegal AlaIlkukr66/21/2023 10:29 AM EDTGender IdentityNot on file Sexual OrientationNot on file Plan of Treatment Health MaintenanceDue DateLast DoneCommentsCT Vqaxewiusoha1960Colonoscopy 1960Colorectal Cancer Ujlaeiwbv1960FIT-DNA (Cologuard)1960FIT 1960Lipid Panel1960Swrhzmurazyaq1960Yearly Adult Physical 1960MMR Vaccines (1 of 1 - Standard series)02/16/1961Hepatitis C Screening 02/16/1978Cervical Cancer Ukmyssyux80/01/1981HPV/Dgqxdt4802/16/1981Pap Smear 02/16/1981DTaP/Tdap/Td Vaccines (1 - Tdap)02/16/19827408Fijofntrm72/01/2000 Pneumococcal Vaccine (1 of 1 - PCV)02/16/2010Zoster [...]
--- OUTSIDE RECORDS SUMMARY | 2025-04-13 08:45 | XMS_ITS | Clinical Summary ---
Author Organization [facility] Address [address] [place] [address] Care Team Providers Care Tier In Name Role Phone Gus Herr MD Primary Care Provider [phone] Allergies No known active allergies Medications MedicationSigDispense QuantityRefillsLast FilledStart DateEnd DateStatus metoprolol tartrate (Lopressor) 50 MG tablet Take 50 mg by mouthActive nitroglycerin (Nitrostat) 0.[address] 0.4 mg under the muoate4104/26/2023ctive simvastatin (Zocor) 20 MG tablet Take 20 [...] Dosing, 100.6, kg, 11/03/24 7:43:00 EDT, Weight Zatxxp8211/11/2024 03/19/2025Discontinued(Therapy completed) Active Problems ProblemNoted DateDiagnosed DatePrimary osteoarthritis of right knee11/19/2024 Acute postoperative pain of right knee11/19/2024Status post right knee lmjevcbzzhy42/04/2025 Encounters DateTypeDepartmentCare YzsdYxibxhgnqmr17/02/2025 8:30 AM EDTOffice Visit [facility] [address] [place] [phone] Mack Delaney, S/P total knee arthroplasty, right (Primary Dx)03/19/2025 8:00 AM EDTAncillary Procedure [facility] [address] [place] [phone] 03/19/20258784Quoezt50/09/2025Telephone [facility] [address] [place] [address] Mack Delaney, Dental Appt Abx Tjoqbyj4902/05/2025 9:00 AM EDTTreatment [facility] [address] [facility] [address] [place] [address] Kelbley, Katherine, SALES PORTER Primary osteoarthritis of right knee (Primary Dx); Acute postoperative pain of right knee; Status post right knee aqfiujgdyvq53/21/1925Dtjnga94/19/2025 7:30 AM EDT Treatment [facility] [address] [place] [address] [place] [phone] Kelbley, Katherine, SALES PORTER Primary osteoarthritis of right knee (Primary Dx); Acute postoperative pain of right knee; Status post right knee /19/2025amboo flowsheet [facility] [address] [place] [address] [place] [phone] Kelbley, Katherine, SALES PORTER 08/19/4280Isimva30/13/2025 7:30 AM EDTTreatment [facility] [address] [facility] [address] [place] [address] Katherine Sanchez, SALES PORTER Primary osteoarthritis of right knee (Primary Dx); Acute postoperative pain of right knee; Status post right knee raxdmhehbcp05/13/2025amboo flowsheet [facility] [address] [place] [address] [place] [address] Katherine Sanchez, SALES PORTER 01/28/20252506Jjtkai58/11/2025 7:30 AM EDTTreatment [facility] [address] [facility] [address] [place] [address] Katherine Sanchez, SALES PORTER Primary osteoarthritis of right knee (Primary Dx); Acute postoperative pain of right knee; Status post right knee cfjzmixunai51/11/2025amboo flowsheet [facility] [address] [facility] [address] [place] [address] Katherine Sanchez, SALES PORTER 01/26/20257949Oxvanb82/06/2025 4:00 PM EDTTreatment [facility] [address] [facility] [address] [place] [address] Steff Román, SALES PORTER Primary osteoarthritis of right knee (Primary Dx); Acute postoperative pain of right knee; Status post right knee replacement; Aftercare following right knee joint replacement bfiovms0101/21/2025amboo flowsheet [facility] [address] [facility] [address] [place] [address] Steff Román, SALES PORTER 01/21/20256437Jnujar62/04/2025 1:30 PM EDTTreatment [facility] [address] [facility] [address] [place] [address] Katherine Sanchez, SALES PORTER Primary osteoarthritis of right knee (Primary Dx); Acute postoperative pain of right knee; Status post right knee replacement; Aftercare following right knee joint replacement fyqktxj8201/19/2025amboo flowsheet [facility] [address] [facility] [address] [place] [address] JaydenKatherine huang, SALES PORTER 01/19/20256166Vsnnbf36/30/2025 10:00 AM EDTTreatment [facility] [address] [facility] [address] [place] [address] Nikkie Sanchezissa, SALES PORTER Primary osteoarthritis of right knee (Primary Dx); Acute postoperative pain of right knee; Status post right knee dkrhewgnosn39/30/2025amboo flowsheet [facility] [address] [facility] [address] [place] [address] Nikkie Sanchezissa, SALES PORTER 01/14/20258306Trdety05/28/2025 9:00 AM EDTTreatment [facility] [address] [facility] [address] [place] [address] JaydendavieNikkie hindsKatherine, SALES PORTER Primary osteoarthritis of right knee (Primary Dx); Acute postoperative pain of right knee; Status post right knee jpkchrqbpyq62/28/2025amboo flowsheet [facility] [address] [facility] [address] [place] [address] Katherine Sanchez, SALES PORTER 01/12/2025Travelfrom Last 3 Months Social History Tobacco UseTypesPacks/DayYears UsedDateSmoking Tobacco: FormerCigarettesQuit: 2000Smokeless Tobacco: NeverCommentsUnknownSex and Gender Information ValueDate RecordedSex Assigned at BirthNot on fileLegal KvqYjuyea91/15/2023 7:01 PM EDTGender IdentityNot on fileSexual OrientationNot on file Last Filed Vital Signs Vital SignReadingTime TakenCommentsBlood Pressure--Pulse--Vokljbsbvth78.4 ??C (97.6 ??F)09/06/2023 1:15 PM EDTRespiratory Rate--Oxygen Saturation--Inhaled Oxygen Concentration--Hawuhr342 kg (223 lb)03/19/2025 8:40 AM VQIAytrmz508.1 cm (5' 5 )03/19/2025 8:40 AM EDTBody Mass Index37.111007/2024 8:40 AM EDT Plan of Treatment DateTypeDepartmentCare Team (Latest Contact Info)Ygdwrvbskfb62/02/2026 8:30 AM EDTOffice Visit [facility] [address] [facility] [place] [phone] Mack Delaney, DO [address] [place] [address] Health MaintenanceDue DateLast DoneCommentsCT Xgrncpoixhhv1960FIT-DNA 1960FIT1960FOBT02/16/5319Vltsfcmyftkja1960Pneumococcal Vaccine: 65+ Years (1 of 1 - PCV)02/16/20100337Rlfnzcakc54, 12/14/2015, 11/16/2014, Additional history existsInfluenza Vaccine (#1) 510/05/2024, 03/30/2022, 04/11/2021, Additional history existsPap Smear /, 11/29/2023ervical Cancer Fnlbotcua31/13/2029HPV/Cotest /, 3017Niwexfsjdrj46/25/841228/olorectal Cancer Vgbvlnrac24/25/2034 Procedures Procedure NamePriorityDate/TimeAssociated DiagnosisCommentsXR KNEE 3 VIEWS RIGHT Bwletgo2303/19/2025 7:48 AM EDT S/P total knee arthroplasty, [...] fracture or infection Authorizing ProviderResult TypeResult StatusMichael T Delaney DOIMG XR PROCEDURES Final Result from Last 3 Months Insurance * Guarantor: Michelle Rodriguez TypeRelation to PatientDate of BirthPhoneBilling AddressPersonal/KguctiLmvw1960 [address] [address] [place] [address] Care Teams Team MemberRelationshipSpecialtyStart Date Gus Herr MD [address] [place] [phone] PCP - GeneralFamily Medicine10/30/24
--- OUTSIDE RECORDS SUMMARY | 2025-04-13 08:46 | XMS_ITS | Patient Health Record ---
Author Organization [facility] Address [address] [place] [address] Care Team Providers Care Brothel Keeper Name Role Phone Gus Herr Primary Care Provider Cornelio Pineda [phone] Allergies No Known Allergies Reason For Referral No Information Medications Medication SIG (Take, Route, Frequency, Duration) [...] in the past year?Declined to specify (0 point)Kzamqh9EsbflmfplftunxBkqqibzgUlnbbeo Control (Standard) Question Answer Notes Tobacco use: Nonsmoker Problems Problem Type SNOMED Code ICD Code Onset Dates Problem Status W/U Status Risk Notes Problem [id number] Pubic bone pain (M89.9) D[id number] in right hip (M25.551)Activeconfirmed Ssjujyi89883586Kpto in left hip (M25.552)[id number] hernia, initial encounter (S39.81XA)Activeconfirmed Plan Of Treatment No Information Insurance Providers Payer Name Payer Address Payer Phone Subscriber Number Group Number Insured Name Patient Relationship to Insured Coverage Start Date Coverage End Date [facility] [address] [place] [address] [id number] Suzanne PRADO - patient is the insured Medical (General) History Medical History History ICD Code High Blood Pressure Surgical History Surgery Date(Month/Year) Shoulder surgery 10 yrs ago
--- OUTSIDE RECORDS SUMMARY | 2025-04-13 08:46 | XMS_ITS | Patient Health Record ---
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20-5.40 10 6/uL Pibdtxiknf81.312.0-16.0 g/aWNyrqntkgft11.536.0-48.0 %Mean Corpuscular Wbzptc09.1 81.0-99.0 fLMean Corpuscular Unlirwygch94.626.7-34.0 pgMean Corpuscular HGB Conc 32.829.9-35.2 g/dLRed Cell Distribution Width12.911.0-15.0 %Platelet Cyopf984 150-450 10 3/uLMean Platelet Ngapjm00.09.5-13.5 fLNeutrophils Percent Auto58.0 43.0-75.0 %Lymphocytes Percent Auto28.220.5-60.0 %Monocytes Percent Auto9.21.7- 12.0 %Eosinophils Percent Auto4.20.9-7.0 %Basophils Percent Auto0.20.2-2.0 % Immature Granulocytes Pct Auto0.20.0-0.5 %Neutrophils Absolute Auto3.01.4-6.5 10 3/uLLymphocytes Absolute Auto1.51.2-3.8 10 3/uLMonocytes Absolute Auto0.50.3-0.8 10 3/uLEosinophils Absolute Auto0.20.0-0.7 10 3/uLBasophils Absolute Auto0.00.0- 0.1 10 3/uLImmature Granulocytes Abs Auto0.010.00-0.03 10 3/uLPerforming Lab:see noteML - [facility] LBGLYCOHEMOGLOBIN A1C Reviewed date:01/13/2025 01:03:18 PM Interpretation: Performing Lab: Notes/Report: [facility] ,Glycohemoglobin A1C5.34.5-6.2 % ADA RECOMMENDED LIMIT 4.0 - 6.0 ADA THERAPEUTIC TARGET < 7.0 ACTION SUGGESTED > 7.0 Estimated Average Hhjiqpv589Aejzbivuew Lab:see noteML - [facility] LB LIPID PROFILE Reviewed date:01/13/2025 01:03:18 PM Interpretation: Performing Lab: Notes/Report: [facility] ,Cbjfezhdictjz240<=150 mg/zNIsgxhvkvvsk171<=200 mg/dLHDL Ghfxsjruadp0987-52 mg/dL > or =60 mg/dl - LOW CARDIOVASCULAR RISK <40 mg/dl - HIGH CARDIOVASCULAR RISK LDL Cholesterol Xpxcwrtdtc380.2 <100 mg/dl OPTIMAL 100-129 mg/dl NEAR OR ABOVE OPTIMAL 130-159 mg/dl BORDERLINE HIGH 160-189 mg/dl HIGH >190 mg/dl VERY HIGH VLDL HSURWYNPJON39.8Chol HDL Ratio3.6 3.3 - 4.4 LOW RISK 4.4 - 7.1 AVERAGE RISK 7.1 - 11.0 MODERATE RISK >11.0 HIGH RISK Performing Lab:see note - [facility] LBMM tomosynthesis screening BI Reviewed date:12/09/2024 02:38:40 PM Interpretation: Performing Lab: Notes/Report: Source Facility: [facility]-[address] [place] [address] [place] [address] Mammography Report Signed Patient: MICHELLE MOON MR#: [id number] : 1960 Acct:[id number] Age/Sex: 64 / F ADM Date: 12/09/24 Loc: MAMMO Attending Dr: Maggie Baldwin M.D. Ordering Physician: Maggie Baldwin M.D. Results: Date of Service: 12/09/24 Follow Up: Procedure(s): MM tomosynthesis screening BI Accession Number(s): [id number] cc: Maggie Baldwin M.D. Patient Name: MICHELLE MOON MR#: [id number] : 1960 Exam Date: 12/09/2024 Ordering Doctor: DR MAGGIE BALDWIN . RADIOLOGY REPORT PROCEDURE: MM TOMOSYNTHESIS SCREENING BI COMPARISON: MM TOMOSYNTHESIS SCREENING BI, 11/15/2023. MG MAMM SCREEN 3D SHELIA CAD, 10/17/2022. MG MAMM SCREEN 3D SHELIA CAD, 04/28/2021. MG MAMM SCREEN SHELIA W CAD, 06/29/2009. INDICATIONS: Screening Calculator Name NCI Breast Cancer Risk Assessment Tool 5 Year Breast Cancer Risk 1.20% Lifetime Breast Cancer Risk 4.70% Personal Breast Cancer No Personal Ovarian Cancer No Treatments None Family Cancers Grandmother-maternal with leukemia cancer at age 50; Uncle-maternal with prostate cancer at age 70; Grandfather-paternal with unknown cancer at age 80. LOCATION: [facility] BREAST COMPOSITION: There are scattered areas of fibroglandular density. FINDINGS: RIGHT BREAST: No significant suspicious finding. LEFT BREAST: No significant suspicious finding. Benign-appearing lymph nodes are noted along the chest wall. There is a similar focal asymmetry on the left. DIAGNOSTIC CATEGORY 2--BENIGN FINDING: RECOMMENDATIONS: ROUTINE MAMMOGRAM AND CLINICAL EVALUATION IN 12 MONTHS. PLEASE NOTE: A NORMAL MAMMOGRAM DOES NOT EXCLUDE THE POSSIBILITY OF BREAST CANCER. A CLINICALLY SUSPICIOUS PALPABLE LUMP SHOULD BE BIOPSIED. Dictated by: Frandy Bush MD on 12/09/2024 at 11:57 Approved by: Frandy Bush MD on 12/09/2024 at 12:00 Dictated By: Frandy Bush M.D. Signed By: 12/09/24 1202 DD/ 1201 TD/TT: Business Intelligence Director:Occult Blood* Reviewed date:04/08/2025 05:45:05 PM Interpretation: Performing Lab: Notes/Report: [facility] ,Occult BloodPositivePerforming Lab:see note - [facility] LBTSH Reviewed date:01/13/2025 01:03:18 PM Interpretation: Performing Lab: Notes/Report: [facility] ,Thyroid Stimulating Hormone3.4940.358-3.740 uIU/mLPerforming Lab:see note - [facility] LBT4 Reviewed date:01/13/2025 01:03:18 PM Interpretation: Performing Lab: Notes/Report: [facility] ,T4 Thyroxine9.904.80-13.90 ug/dLPerforming Lab:[facility] noteK[facility] LBPROF 14(COMP METB) Reviewed date:01/13/2025 01:03:18 PM Interpretation: Performing Lab: Notes/Report: [facility] ,Bnqdfw188679-682 mmol/LPotassium4.23.5-5.1 mmol/WQvcmspfl59334-010 mmol/LCarbon Gvddeyx81.121.0-32.0 mmol/LAnion Gap13.2Kixfbgu17091-434 mg/dLBlood Urea Uuymyvok10.07.0-18.0 mg/dLCreatinine0.880.55-1.02 mg/dLEstimated GFR ( Carol Ann>60>=60 mL/min/1.73m 2Estimated GFR (Non- Sade>60>=60 mL/min/1.73m 2BUN Creatinine Ratio18.2Cfbzgtz9.78.5-10.1 mg/dLBilirubin Total0.60.2-1.0 mg/dL Aspartate Amino Tqmtfhxutnv5451-37 U/LAlanine Eiolkpagxqouichk7897-22 U/L Alkaline Hsucogfvmvc06466-412 U/LTotal Protein8.06.4-8.2 g/dLAlbumin Level4.3 3.4-5.0 g/dLGlobulin3.7Albumin Globulin Ratio1.2Performing Lab:see note - [facility] LBFREE T3 Reviewed date:01/13/2025 01:03:18 PM Interpretation: Performing Lab: Notes/Report: [facility] Yojana T32.192.18-3.98 pg/mLPerforming Lab:see noteML - [facility] LB Urine Culture - [facility] Reviewed date:04/11/2025 03:12:17 PM Interpretation: Performing Lab: Notes/Report: [facility] ,Urine Culture - FRMCSee Below For Report Urine Culture - [facility] No Growth 2 Days Urine Culture - [facility] Urine Culture - FR No Growth 2 Days [facility] - [facility] No Growth 2 Days Urine Culture - [id number] [place] [address] Urine Culture - FR No Growth 2 Days Performing Lab:see noteML - [facility] LBUA RANDOM W or MICROSCOPIC Reviewed date:04/08/2025 12:43:27 PM Interpretation: Performing Lab: Notes/Report: [facility] ,Color UrineLT. YELLOWYELLOWClarity UrineCLEARCLEARSpecific [place] Urine<=1.005 1.005-1.025pH Urine6.05.0-9.0Protein UrineNEGATIVENEG/TRACE mg/dLGlucose Urine UANEGATIVENEGATIVE mg/dLBilirubin UrineNEGATIVENEGATIVEKetones UrineNEGATIVE NEGATIVE mg/dLBlood UrineNEGATIVENEGATIVENitrite UrineNEGATIVENEGATIVE Urobilinogen Urine0.20.2-1.0 EU/dLLeukocyte Esterase UrineNEGATIVENEGATIVEWBC UrineNONE SEENNONE SEEN #/HPFRBC Urine0-20-2 #/HPFBacteria UrineNONE SEENNONE SEEN #/HPFMucus UrineNONE SEENNONE SEENSquamous Epithelial Cell UrineMODERATE NONE/RARE #/LPFCrystals Seen?None SeenNone Seen #/HPFCast Seen?NONE SEENNONE SEEN #/LPFUrine Culture IndicatedALREADY ORDEREDPerforming Lab:see noteML - [facility] LB Reason For Referral Diagnosis 1 Heartburn (R12) Diagnosis 2 Occult blood positiv e stool (R19.5) Referral Organization [facility] Referring Provider First Name Olman Referring Provider Last Name Nemesio Referring Provider Speciality Family Med chiquita Referred Provider Mack Marvin Referred Provider Specialty General Surg david Referral Priority Routine Medications Medication SIG (Take, Route, Frequency, Duration) Notes Start Date End Date Status Pantoprazole Sodium 40 MG 1 tablet 1/2 t o 1 hour before morning meal Orally twice a day; Duration: 30 days 5ActiveMetoprolol Tartrate 50 MGTAKE 1 TABLET BY MOUTH TWICE A DAY WITH FOOD FOR 30 DAYS; Duration: 90ActiveMeloxicam 15 MG1 tablet Orally Once a day ActiveIron 325 (65 Fe) MG1 tablet Orally once a day5ActiveAspirin 325 MG1 tablet Orally Once a day; Duration: 30 daysActiveNitroglycerin 0.4 MG1 sl Q 5 min prn chest pain Oddwgrzmli87/09/2023ActiveAmoxicillin-Pot Clavulanate 875- 125 MG1 tablet Orally every 12 hrs; Duration: 10 days5ActiveSimvastatin 20 MGTAKE 1 TABLET BY MOUTH EVERY DAY IN THE EVENING; Duration: 90Active Social History Tobacco Use: Social History Observation Description Date Details (start date - stop date) Former Smoker 06/18/1972 - 06/18/1999 Tobacco Use/Smoking Question Answer Notes Patient is a former smoker When did you start smoking?06/18/1972When did you stop smoking?06/18/1999How long has it been since you last smoked?> 10 yearsAlcohol Screen (Audit-C) Question Answer Notes Did you have a drink containing alcohol in the p ast year? Yes How often did you have 6 or more drinks on one occasion in the past year?Never (0 point)How many drinks did you have on a typical day when you were drinking in the past year?1 or 2 drinks (0 point)How often did you have a drink containing alcohol in the past year?Monthly (2 points)Tpnfvt4LnlhlphlxqmbkvTmjpgmliLQYCN-G (Standard) Question Answer Notes Did you have a drink containing alcohol in the p ast year? No Nguath4NsiqzkuhpwduriRtnywbzg Problems Problem Type SNOMED Code ICD Code Onset Dates Problem Status W/U Status Risk Notes Problem Leiomyoma of uterus (76668534) Leiomyoma of uterus, unspecified (D25.9) ActiveconfirmedProblemVitamin D deficiency (75416603)Vitamin D deficiency, unspecified (E55.9)ActiveconfirmedProblemBilateral inguinal hernia (25770718) Bilateral inguinal hernia, without obstruction or gangrene, not specified as recurrent (K40.20)ActiveconfirmedProblemDiverticula of intestine (00508709) Diverticulosis of intestine, part unspecified, without perforation or abscess without bleeding (K57.90)ActiveconfirmedProblemPrimary osteoarthritis (977785644)Unilateral primary osteoarthritis, right knee (M17.11)Activeconfirmed ProblemElectrocardiogram abnormal (318101156)Abnormal EKG (R94.31)Active confirmedProblemDyspnea (957101759)Dyspnea (R06.00)ActiveconfirmedProblem Essential hypertension (79661387)Benign essential HTN (I10)Activeconfirmed ProblemOsteoarthritis of knee (332130356)Knee osteoarthritis (M17.9)Active confirmedProblemAcute sinusitis (58790839)Acute sinus infection (J01.90)Active confirmedProblemGastroenteritis (05722114)Gastroenteritis (K52.9)Activeconfirmed Vital Signs Blood pressure diastolic 82 mm Hg 04/01/2025 Rdwnee86 in04/01/2025lood pressure livfyvcx592 mm Hg04/01/20254631Qaeikd789.0 lbs 04/01/2025BMI37.44 kg/m204/01/2025 Encounters Encounter Location Date Provider Diagnosis [facility] [address] [place] [address] 04/01/2025 Olman Baldwin Dysuria R30.0 and UT I (urinary tract infection), uncomplicated N39.0 [facility] [address] [place] [address] 11/04/2024 Olman Baldwin Encounter for pre-operative examination Z01.818 ; Benign essential HTN I10 and Primary localized osteoarthritis of right knee M17.11 [facility] [address] [place] [address] 04/10/2025 Olman Willisy [facility] [place] [address] 04/11/2025[facility] [place] [address]/Doug [address] [place] [address]/[facility] [place] [address]/Doug HoyWellness examination Z00.00 and Screening for colon cancer Z12.11BKenneth [address] [place] [address]/Doug [address] [place] [address]/Doug HoyUTI (urinary tract infection) N39.[address] [place] [address]/Doug HoyLumbar pain M54.50 and Dysuria R30.[address] [address] 04/08/2025Doug HoyHeartburn R12 and Positive occult stool blood test R19.5 Assessments Encounter Date Diagnosis (ICD Code) Assessment Notes Treatment Notes Treatment Clinical Notes Section Notes 11/04/2024 Encounter for pre-operative exam ination (ICD-10 - Z01.818) 11/04/2024enign essential HTN (ICD-10 - I10)04/01/2025Dysuria (ICD-10 - R30.0) 01/12/2025Wellness examination (ICD-10 - Z00.00)04/08/2025UTI (urinary tract infection) (ICD-10 - N39.0)04/08/2025Lumbar pain (ICD-10 - M54.50)04/08/2025 Dysuria (ICD-10 - R30.0)04/08/2025Heartburn (ICD-10 - R12)04/08/2025Positive occult stool blood test (ICD-10 - R19.5)01/12/2025Screening for colon cancer (ICD-10 - Z12.11)04/01/2025UTI (urinary tract infection), uncomplicated (ICD-10 - N39.0)Hx ecoli infection - if nto better - need ct scan abd and pelvis 11/04/2024Primary localized osteoarthritis of right knee (ICD-10 - M17.11) 11/04/2024Other Cleraed for OR NO CAD< No CVA, No PE Plan Of Treatment Pending Test Test Name Order Date Exercise Stress Nuclear Test 04/26/2023 UA (URINALYSIS, COMPLETE) 04/08/2025 EKG w Interp & Report - performed 2022 FECAL OCCULT BLOOD 04/04/2024 FECAL OCCULT BLOOD 01/12/2025 FECAL OCCULT BLOOD 10/03/2023 C DIFF TOX PCR STOOL 04/04/2024 CMP - Comprehensive Metabolic Panel 12/17 Culture, Stool 04/04/2024 US Renal and Bladder 04/08/2025 CBC AUTO DIFF 10/03/2023 CULTURE URINE 04/08/2025 SAMI - VITAMIN D 10/03/2023 GLYCOHEMOGLOBIN A1C 10/03/2023 LIPID PROFILE 10/03/2023 PROF 14(COMP METB) 10/03/2023 THYROID PROFILE WITH TSH 10/03/2023 XR LSPINE 2_3 VIEWS 04/08/2025 THYROID PANEL (T4/TSH/FREE T3) 5 Insurance Providers Payer Name Payer Address Payer Phone Subscriber Number Group Number Insured Name Patient Relationship to Insured Coverage Start Date Coverage End Date [facility] [address] [place] [address] [id number] Michelle Moon Self - patient is the insured Medical (General) History Medical History History ICD Code COVID-19 U07.1 Low back pain M54.5 Essential Hypertension I10 GERD (gastroesophageal reflux disease) K 21.9 Hyperlipidemia E78.5 Migraine G43.909 Vertigo R42 Vertebral fracture 805.8 left superficial anterior parotid mass Surgical History Surgery Date(Month/Year) Urethral dilation 2013 Left Superficial Parotidectomy 08/2017 Rotator Cuff repair, right Colonoscopy- Dr Agosto07/12/2023Gelsyn Injection- Dr Delaney05/27/2024
--- NOTE | 2025-04-13 08:47 | XR_ITS ---
The [address] [address] Patient Name: RITA PRADO MRN: [id number] date: 1960 Sex: F Assigned Patient Location: US Current Patient Location: [place] Accession/Order Number: [id number] Exam Date: 04/13/2025 09:10 Report Date: 04/13/2025 09:41 At the request of: MAGGIE BALDWIN MD Procedure: XR lumbar spine 2-3V LUMBAR SPINE - 2 views COMPARISON: 03/26/2020 CLINICAL DATA: Back pain for the past month when lying down. No injury. AP and lateral views were obtained. There is osteopenia. There is subtle levoscoliotic curvature. There are no acute compression fractures. There is still minimal anterolisthesis of L4 on L5. The disc spaces are maintained. There are tiny endplate spurs. There is lower lumbar facet hypertrophy. The SI joints are intact. No paraspinal soft tissue abnormalities are present. XR/XR lumbar spine 2-3V IMPRESSION: OSTEOPENIA, SUBTLE SCOLIOSIS AND MILD GENERATIVE CHANGES, GREATEST AT THE LOWER FACETS. Impression dictated by: Leslie Hernandez M.D. 04/13/2025 9:41 AM Dictation Location: [place] [address] Electronically authenticated by: [id number] Y Date: 04/13/2025 09:41
--- NOTE | 2025-04-13 08:47 | US_ITS ---
The [address] [address] Patient Name: RITA PRADO MRN: [id number] date: 1960 Sex: F Assigned Patient Location: US Current Patient Location: US Accession/Order Number: [id number] Exam Date: 04/13/2025 08:49 Report Date: 04/13/2025 09:34 At the request of: MAGGIE BALDWIN MD Procedure: US renal bladder BILATERAL RENAL AND BLADDER ULTRASOUND CLINICAL HISTORY: dysuria. Pelvic and flank pain. COMPARISON: None Estimation of renal size is approximately 10.2 cm on the right and 11.8 cm on the left. No shadowing calculi or hydronephrosis are identified. No renal mass lesions were imaged. There is no perinephric fluid. The urinary bladder is partially distended with a volume of 338 mL. No contour or intraluminal abnormalities are seen. Bilateral ureteral jets are seen. The post void bladder residual is 7 mL. US/US renal bladder IMPRESSION: NO OBSTRUCTIVE UROPATHY. Impression dictated by: Leslie Hernandez M.D. 04/13/2025 9:34 AM Dictation Location: [place] [address] Electronically authenticated by: [id number] Y Date: 04/13/2025 09:34
--- OUTSIDE RECORDS SUMMARY | 2025-04-13 08:59 | XMS_ITS | CCD ---
Author Organization [facility] CliniSymn Care Team Providers Care Equalizing Saw Operator Name Role Phone NICOLASA ., DR SERRANO Consulting Unavailable HOY ., DR SERRANO Primary Care Unavailable HOY ., DR SERRANO Admitting Unavailable HOY ., DR SERRANO Attending Unavailable SIGEL, DR KRISSY Gallardo Consulting Unavailable HOY ., DR SERRANO Admitting Unavailable HOY ., DR SERRANO Attending Unavailable HOY ., DR SERRANO Consulting Unavailable HOY ., DR SERRANO Primary Care Unavailable ROBBIEEBER, DR NAOOP Clinton Consulting Unavailable HOY ., DR SERRANO [...] Unavailable HOY ., DR SERRANO Attending Unavailable Lazaroy Maggie Primary Care Physician LAZAROYDOMENICAMAGGIE M Primary Care Unavailable EMILY YOO Referring Unavailabl [...] Unavailable Maggie Baldwin MD Primary Care Provider [phone] Maggie Baldwin MD Primary Care Provider [phone] Unavailable Primary Care Provider UnavailMaggie Jaquez MD Primary Care Provider [phone] Steve Duarte Admitting Unavailable Duarte, Steve Ayala Attending Unavailable Duarte, Steve Ayala Referring Unavailable NILL, Steve R Attending Unavailable Hoy, Maggie Referring Unavailable NILL, Steve Clinton Admitting Unavailable NILL, Steve Clinton Attending Unavailable NILL, Steve R Referring Unavailable Duarte, Steve Ayala Referring Unavailable Duarte, Steve Ayala Admitting Unavailable Duarte, Steve Ayala Attending Unavailable Duarte, Steve Ayala Attending Unavailable Duarte, Steve Ayala Referring Unavailable Duarte, Steve Ayala Admitting Unavailable Duarte, Steve Ayala Referring Unavailable Duarte, Steve Ayala Attending Unavailable Duarte, Steve Ayala Admitting Unavailable DUARTE, STEVE Ayala Attending Unavailable DUARTE, STEVE Ayala Referring Unavailable BLACKSTONMADISON Attending Unavailable DUARTE, STEVE Ayala Referring Unavailable [...] Attending Unavailable DUARTE, STEVE T Referring Unavailable NATIVIDAD GUDINO Attending Unavailable DUARTE, STEVE Ayala Referring Unavailable KATHERINE HUTCHISON Attending Unavailable DUARTE, STEVE Ayala Referring Unavailable SAUD PUGA Attending Unavailable DUARTE, STEVE Ayala Referring Unavailable [...] Attending Unavailable DUARTE, STEVE T Referring Unavailable BRMARIELY HARMON Attending Unavailable DUARTE, STEVE T Referring Unavailable KELBLEY, KATHERINE Attending Unavailable DUARTE, STEVE T Referring Unavailable KELBLEY, KATHERINE Attending Unavailable DUARTE, STEVE T Referring Unavailable KELBLEY, KATHERINE Attending Unavailable KELBLEY, KATHERINE Attending Unavailable DUARTE, STEVE T Referring Unavailable DUARTE, STEVE T Referring Unavailable DUARTE, STEVE T Attending Unavailable DUARTE, STEVE T Referring Unavailable Maggie Baldwin MD Primary Care Provider [phone] Maggie Baldwin MD Attending Provider Maggie Baldwin Attending Unavailable Maggie Baldwin Primary Care Unavailable Maggie Baldwin Admitting Unavailable Allergies Allergy ClassificationReported Allergen(s)Allergy TypeDate of OnsetReaction(s) Facility (3 sources)No Known Medication Allergies; Translations: [No Known Medication Allergies]Propensity to adverse reactions (disorder)[facility] Repository Medications Current Medications MedicationDrug Class(es)DatesSig (Normalized)Sig (Original)acetaminophen 325 mg / oxyCODONE hydrochloride 5 mg oral tablet (20 sources)Opioid AgonistStart: 11-26-2024 End: 18-47-8534zlsv 1-2 tablets by mouth every four hours for painoxyCODONE- acetaminophen (Percocet) 5-325 MG tablet Indications: Primary osteoarthritis of right knee Take 1-2 tablets by mouth every 4 (four) hours if needed for severe pain for up to 5 days 50 tablet 11/26/2024 12/01/2024 ActiveStart: 11-11-2024 End: 95-49-8736zjaDPHDHY-acetaminophen (Percocet) 5-325 MG tablet See Instructions, 50 tab(s), Refill(s) 0, Take one to two oral every 4 hours as needed for surgical pain., [facility]/pharmacy #[id number], 166.5, cm, 11/03/24 7:43:00 EDT, Height/Length Dosing, 100.6, kg, 11/03/24 7:43:00 EDT, Weight Dosing 11/11/2024 03/19/2025 Discontinued (Therapy completed)aspirin 325 mg delayed release oral tablet (20 sources)Platelet Aggregation Inhibitor, Nonsteroidal Anti-inflammatory Drug Start: 57-31-0140dsla 1 tablet by mouth once dailyaspirin 325 mg Oral EC Tab 325 mg = 1 tab(s), Oral, Daily, Refills(s) 0, Prophylaxis Start Date: 04/08/24 Status: Ordered Repeat number: 1Start: 92-06-8308lmsb 1 capsule by mouth every twenty-four hoursaspirin 81 mg oral capsule 81 mg = 1 cap(s), Oral, q24hr Start Date: 10/23/23 Status: OrderedStart: 75-71-9443Kpvnjwu 81 MG CAPS Take 81 mg by mouth 10/23/2023 Active End: 68-43-8707wguv 1 tablet by mouth once dailyaspirin 325 MG tablet Take 325 mg by mouth 1 (one) time each day at the same time 10/30/2024 Discontinued (Therapy completed)cephalexin 500 mg oral capsule (2 sources)Cephalosporin AntibacterialStart: 15-87-4641twxzvwekyy (Keflex) 500 MG capsule Indications: S/P total knee arthroplasty, right Take two caps evening prior to appointment, take two caps one hour prior to appointment 4 capsule 2 02/24/2025 Activeclindamycin 20 mg/ml vaginal cream (4 sources)Lincosamide AntibacterialStart: 20-51-3175pnmockvyyow (CLEOCIN) 2 % vaginal cream Place vaginally nightly. For 3 nights. 1 each 12/17/2023 Active docusate sodium 100 mg oral capsule (1 source)Start: 70-23-8651ktnw 1 capsule by mouth twice dailyColace 100 mg Cap 100 mg = 1 cap(s), Oral, BID, # 20 cap(s), Refills(s) 0, Pharmacy: [facility]/pharmacy #[id number], 166.5, cm, 11/03/24 7:43:00 EDT, Height/Length Dosing, 100.6, kg, 11/03/24 7:43:00 EDT, WeightDosing Start Date: 11/11/24 Status: Ordered Quantity: 20.0 Unit: cap(s) Repeat number: 1ferrous sulfate 325 mg oral tablet (20 sources)Start: 83-14-8495Ydriehk Sulfate (iron) 325 (65 Fe) MG tablet 1 (one) time each day at the same time 11/04/2024 Activeibuprofen 800 mg oral tablet (20 sources)Nonsteroidal Anti-inflammatory DrugStart: 67-39-2097gyxkfxfkw 800 MG tablet 06/28/2023 Activeiron carbonyl 15 mg chewable tablet (20 sources)Start: 99-96-2483Jzeghzvx Iron 15 MG chewable tablet Chew 10/23/2023 ActiveIron Chews (2 sources)Start: 60-96-6906jnmi 1 mg by mouth once dailyIron Chews mg, Oral, Daily Start Date: 10/23/23 Status: Tovbasb39 hr isosorbide mononitrate 30 mg extended release oral tablet (20 sources)Nitrate VasodilatorStart: 91-50-5210zinzibtsst mononitrate ER (Imdur) 30 MG 24 hr tablet Take 30 mg by mouth 04/08/2024 Activemeloxicam 15 mg oral tablet (20 sources)Nonsteroidal Anti-inflammatory DrugStart: 08-23-2023 End: 02-21-2337wdqc 1 tablet by mouth once dailymeloxicam (Mobic) 15 MG tablet Indications: Bilateral primary osteoarthritis of knee Take 1 tablet (15 mg) by mouth Daily 30 tablet 11 10/20/2024 10/20/2025 Activemetoprolol tartrate 50 mg oral tablet (20 sources)beta-Adrenergic BlockerStart: 64-32-4076Chpakqneyf tartrate 50 mg Tab 50 mg = 1 tab(s) Start Date: 10/23/23 Status: OrderedStart: 36-83-7452cjgh 1 tablet by mouth twice dailyMetoprolol tartrate 50 mg Tab 50 mg = 1 tab(s), Oral, BID, High blood pressure Start Date: 10/23/23 Status: Ordered Repeat number: 1 nitroglycerin 0.4 mg sublingual tablet (20 sources)Nitrate VasodilatorStart: 41-22-6259apprhtpyjokkb (Nitrostat) 0.[address] 0.4 mg under the tongue 04/26/2023 Activepantoprazole 40 mg delayed release oral tablet (20 sources)Proton Pump InhibitorStart: 13-44-3264xjnx 1 tablet by mouth once dailyPantoprazole [address] Tab 40 mg = 1 tab(s), Oral, Daily Start Date: 10/31/24 Status: Ordered Repeat number: 1simvastatin 20 mg oral tablet (20 sources)HMG-CoA Reductase InhibitorStart: 31-84-8073kqip 1 tablet by mouth once daily in the eveningsimvastatin 20 mg Tab 20 mg = 1 tab(s), Oral, qPM, High cholesterol Start Date: 10/23/23 Status: Ordered Repeat number: 1 Completed/Discontinued Medications MedicationDrug Class(es)DatesSig (Normalized)Sig (Original)2 ml sodium hyaluronate 8.4 mg/ml prefilled syringe (16 sources)Start: 06-03-2024 End: 76-21-7188lstwtx hyaluronate (Gelsyn-3) injection 2 mLStart: 06-03-2024 End: mL, Intra-articular, Once PRN Procedure, Starting on Sun06/03/24 at 1345, For 1 doseStart: 05-27-2024 End: 48-97-8194gwyyvj hyaluronate (Gelsyn-3) injection 2 mLStart: 05-27-2024 End: mL, Intra-articular, Once PRN Procedure, Starting on Sun05/27/24 at 1355, For 1 doseStart: 05-20-2024 End: 70-34-3424gjppyo hyaluronate (Gelsyn-3) injection 2 mLStart: 05-20-2024 End: mL, Intra-articular, Once PRN Procedure, Starting on Sun05/20/24 at 1425, For 1 dose Problems Active Problems Problem ClassificationProblemDateDocumented DateEpisodic/ChronicAbdominal pain (11 sources)Abdominal pain; Translations: [Unspecified abdominal pain]Onset: 49-01-2684OzlshmiuNckyos neoplasm of uterus (4 sources)Uterine edokdbqik57-66-5179NobblmppIeveagaja of lipid metabolism (8 sources)Hyperlipidemia; Translations: [Hypercholesterolemia]99-17-7851Aldvhkk Diverticulosis and diverticulitis (1 source)Diverticula of intestine; Translations: [Diverticulosis of large intestine without perforation or abscess without bleeding]Onset: 05-12-2024 ChronicEsophageal disorders (4 sources)Gastroesophageal reflux -26-7473BlyvnipJjofrovgk hypertension (6 sources)Hypertensive szwdwymb40-62-2937ZnsmznkFvpyihrxqtzia symptoms and ill- defined conditions (14 sources)Increased frequency of urination; Translations: [Frequency of micturition]Onset: 89-36-5884ZpamgaswTdilchwe; including migraine (4 sources)Msgpajjp87-39-5048AiyidogWkmwixzmyij deficiencies (4 sources)Vitamin D cidfwlukti87-09-3322AdobnutXuxuydnqnlejxz (20 sources)Primary gonarthrosis, bilateral; Translations: [Bilateral primary osteoarthritis of knee]Onset: 092397-70-8499ZupkhbmXhjjg aftercare (4 sources)Patient encounter status; Translations: [Aftercare following joint replacement surgery]69-83-4547SsiojlaGblay bone disease and musculoskeletal deformities (2 sources)Disorder of bone, unspecified; Translations: [Disorder of bone, unspecified]Onset: 08-87-9983CoqdiokjBaadf connective tissue disease (20 sources)History of total knee arthroplasty; Translations: [Presence of right artificial knee joint]Onset: 059584-46-8460HtuukagHpfkh diseases of bladder and urethra (7 sources)Urethral stricture; Translations: [Other urethral stricture, female] Onset: 37-75-5849KnzzknmlTdnll endocrine disorders (4 sources)Adrenal gland hematomaOnset: 717552-34-2456QqyqcxzAaerq female genital disorders (1 source)Noninflammatory disorder of the vagina; Translations: [Other specified noninflammatory disorders ofvagina]Onset: 36-28-5546ZsernthqTampq female genital disorders (2 sources)Vaginal ibns71-22-1335RgsywfxlYkplv female genital disorders (1 source)Other specified conditions associated with female genital organs and menstrual cycle; Translations:[Other specified conditions associated with female genital organs and menstrual cycle]Onset: 25-55-2680JlzzevutXiegj gastrointestinal disorders (1 source)Abnormal feces; Translations: [Other fecal abnormalities]Onset: 96-85-9994MjprdqidEdbjv gastrointestinal disorders (8 sources)Occult blood in vgndpa77-80-5814DrngyffeLnnbs nutritional; endocrine; and metabolic disorders (4 sources)Body mass index 30+ - krmeyff79-91-7697KnkruqeNdhzl nutritional; endocrine; and metabolic disorders (4 sources)Obese class AVX90-20-9525WehxlqrErxvhqwn codes; unclassified (1 source)Family history of leukemia; Translations: [FAMILY HISTORY OF LEUKEMIA] Onset: 99-06-4357DzdplkspJojrtvgo codes; unclassified (1 source)Family history of malignant neoplasm of prostate; Translations: [FAMILY HX MALIG NEOPLASM PROSTATE]Onset: 33-31-6295VfbnsyubGrameurj codes; unclassified (1 source)Family history of malignant neoplasm, unspecified; Translations: [FAM HX MALIGNANT NEOPLASM UNS]Onset: 52-60-7371KtabzfsiWzzkebpfv and history of mental health and substance abuse codes (7 sources)H/O: Disorder; Translations: [Personal history of nicotine dependence]Onset: 24-53-1157AhppuaxyZuvmnhklnhuk (3 sources)CONTACT W/AND (SUSP) EXPOS COVID-19; Translations: [CONTACT W/AND (SUSP) EXPOS COVID-19]Onset: 83-87-4078Orcsywfikmcp (1 source)COUGH, UNSPECIFIED; Translations: [COUGH, UNSPECIFIED]Onset: 57-34-4184Rdstxnrymags (1 source)Circulatory ProblemOnset: 03-31-2024 Past or Other Problems Problem ClassificationProblemDateDocumented DateEpisodic/ChronicInflammatory diseases of female pelvic organs (1 source)Subacute and chronic vaginitis; Translations: [Subacute and chronic vaginitis]Onset: 71-98-0477EuzajyplFqssu connective tissue disease (4 sources)Pain in right foot; Translations: [PAIN IN RIGHT FOOT]Onset: 91-57-5863XopteapgTowbp female genital disorders (1 source)Pelvic congestion syndrome; Translations: [Other specified conditions associated with female genital organs and menstrual cycle]19-94-5543Fxbpwzme Other nervous system disorders (20 sources)Other acute postprocedural pain; Translations: [Pain in joint, lower leg]Onset: 645947-28-3321DkjcrzsgYmypb screening for suspected conditions (not mental disorders or infectious disease) (5 sources)Encounter for screening mammogram for malignant neoplasm of breast; Translations: [Encounter for screening for malignant neoplasm of cervix]Onset: 58-56-7669EjnsamcfPxwyc skin disorders (4 sources)Mass of parotid glandOnset: 315196-64-4965HlfkdmufCpuml upper respiratory disease (1 source)Nasal congestion; Translations: [NASAL CONGESTION]Onset: 05-29-2022 EpisodicResidual codes; unclassified (1 source)Pain, unspecified; Translations: [Pain, unspecified]Onset: 12-26-2023 EpisodicUnclassified (1 source)CONTACT W/AND (SUSP) EXPOS COVID-19; Translations: [CONTACT W/AND (SUSP) EXPOS COVID-19]Onset: 05-25-2022 Results Test NameValueInterpretationReference RangeFacilityUrine Cultureon 04-08-2025 Bacteria identified Cx Nom (U)No Growth 2 Days PERFORMED BY: [place] [address] PATHOLOGIST WATCH AND CLOCK REPAIR CLERK MARTIN MIGUEL M.D.NormalMemorial Hospital West Physician GroupComment on above: Performed By: #### CUU #### [place] [address] USAXR Knee - right 3 Viewson 09-42-6703Npdvjzr Result: Xrays taken in the office today saved to the permanent record, AP, sunrise and lateral weightbearing films, show stable position and alignment of the right TKA prosthesis. No sign of loosening, fracture or infectionNOMS [facility] ColumbusNOPA HealthcareXR Knee - right 3 Viewson 04-02-3243Tmdwgofdq Study observation (narrative)[facility] - right 3 Viewson 12-16-2024 Imaging Result: Xrays taken in the office today saved to the permanent record, Ap, lateral and sunrise weight bearing films, show stable position and alignment of the knee prosthesis. No sign of loosening or infection. Severe DJD left knee.[facility] CenterRadiology Study observation (narrative)[facility] HospitalSurgical Pathology Reporton 71-04-6810Gibpeope Pathology ReportParkwood Hospital [address] [facility] [address] [facility] [place] [address]- Surgical Pathology Report Collected Date/Time: 11/17/2024 10:15 [...] eburnated. Cross-section reveals no other discrete mass. Sergeant Of Officers sections are submitted in two cassettes. A2 is decalcified. (YC) [facility] Microscopic Description Microscopic examination performed unless gross only specified. Quality was accessed and acceptable. This report was transcribed using voice recognition technology and might contain unintended computerized shoe clerk errors.NormalBrown Memorial HospitalComment on above:Performed By: #### [id number] #### [facility] [address], [place] [address]QJ KNEE 1 OR 2 VIEWS RIGHTon 11-19-2024 [...] Nadir Marte MD Transcribed by: VEDA Technologist: ARLYNCRadiology, RadiologistMD - 11/19/2024 Exam Date/Time: 11/17/2024 12:46 EDT [...] Marte MD Transcribed by: VEDA Technologist: RAUL ReillyXR KNEE 1 OR 2 VIEWS RIGHTOrdered By: Radiologist Radiology on 18-17-7955YPQU [employer] Work Phone: XR Knee 1 or 2 Views Righton 07-28-8707XG Knee 1 or 2 Views RightExam Date/Time: [...] Nadir Marte MD Transcribed by: VEDA Technologist: [facility] HospitalMain OR Intraoperative Recordon [id number] OR Intraoperative RecordMain OR Intraoperative Record IntraOp Document Type FT Summary Primary Physician: Steve Duarte DO Finalized Date/Time: 11/18/24 09:45:22 Pt. Name: MICHELLE RODRIGUEZ/Sex: 1960 Female Med Rec #: [id number] Physician: Steve Duarte DO Financial #: [id number] Pt. Type: A Room/Bed: [facility]/ Admit/Disch: 11/17/24 08:07:32 - 11/17/24 17:25:00 Institution: Case Times FT Entry 1 Patient Times In Room 11/17/24 10:56:00 Out Room 11/17/24 12:23:00 Procedure Times Start 11/17/24 11:26:00 Stop 11/17/24 12:19:00 Anesthesia Times Start 11/17/24 10:56:00 Stop 11/17/24 12:23:00 Block Timeout w/ 11/17/24 10:10:00 Anesthesia Last Modified By: Ranulfo HARRY, Jordan Harris 11/17/24 12:23:31 General Comments: Right adductor canal block performed by LINDA Covarrubias. Annika, RN to assist with the block. Patient's heartrate- 55, Sp02-97% on room air. patient tolerated block well. Patient taken back to [facility] bay 8 andf placed on monitor.-KAMRYN Hebert Case Attendance FT Entry 1 Entry 2 Entry 3 Case Attendee Elaina CISNEROS, Steve Winchester RN, Jordan Hunter LPN, Loulou Garcia Role Performed Surgeon - Primary Him Tech - Primary Scrub - Primary Time In 11/17/24 11:21:00 11/17/24 10:56:00 11/17/24 10:56:00 Time Out 11/17/24 12:11:00 11/17/24 12:23:00 11/17/24 12:23:00 Procedure KNEE TOTAL KNEE TOTAL KNEE TOTAL ARTHROPLASTY(Right) ARTHROPLASTY(Right) ARTHROPLASTY(Right) Comments Last Modified By: Ranulfo HARRY, Jordan Winchester RN, Jordan Winchester RN, Jordan Harris 11/17/24 12:23:32 11/17/24 12:23:32 11/17/24 12:23:32 Entry 4 Entry 5 Entry 6 Case Attendee Vinicius CDL B DRIVER, Shreya Prince CDL B DRIVER, Nicki Montgomery Role Performed Staff - Other Staff - Other CDL B DRIVER/SA Time In 11/17/24 10:56:00 11/17/24 10:56:00 11/17/24 10:56:00 Time Out 11/17/24 12:23:00 11/17/24 12:23:00 11/17/24 12:23:00 Procedure KNEE TOTAL KNEE TOTAL KNEE TOTAL ARTHROPLASTY(Right) ARTHROPLASTY(Right) ARTHROPLASTY(Right) Comments 2nd scrub at surgical retractor valverde at field surgical field Last Modified By: Ranulfo HARRY, Jordan Mendez CDL B DRIVER, Anju Winchester RN, Jordan Harris 11/17/24 12:23:32 11/18/24 09:43:58 11/17/24 12:23:32 Entry 7 Case Attendee Maren TELLO CRNA, Queen Obi Role Performed STRATEGIES ANALYST Time In 11/17/24 10:56:00 Time Out 11/17/24 12:23:00 Procedure KNEE TOTAL ARTHROPLASTY(Right) Comments , anesthesxia cabin cleaning supervisor Last Modified By: Jordan Winchester RN 11/17/24 12:23:32 General Comments: Braeden Mendoza- [facility] Orthopaedic Rep., present in OR for surgical [...] Steve Duarte DO, Given Participants Ranulfo HARRY, Jordan Harris, Dale AUTO ENGINE MECHANIC, Vinicius Holland CST, Terrell Garcia, Donnie Alvarado CST, Maren Bassett DNP, STRATEGIES ANALYST, Roberts N. Time Out Complete 11/17/24 11:22:00 [...] OA Outcomes Met? Yes Last Modified By: Ranulfo HARRY, Jordan L 11/17/24 11:27:02 Post-Care Text: The patient is free from s (more content not included)...[facility] North HospitalOperative Reporton [id number] ReportOperative Report SURGERY DATE: 11/17/2024 NON CLINICAL ADVISOR: Nicki Fields C.F.A. PREOPERATIVE DIAGNOSES: 1. Right [...] Zero SPECIMEN: Bone IMPLANTS UTILIZED: The [employer] Visible Pathune knee system with a size 6 PS [...] PATIENT CONDITION: Satisfactory Esvin Guadarrama Dictated: 11/17/2024 [id number] Transcribed: 11/17/2024 cc:Abdoul AdameSouthview Medical CenterComment on above:Result Comment: Electronically Signed By: Steve Duarte DO\.br\Date and Time Signed: 11/18/24 06:06 EDTABO/Rhon 56-21-6170GPM/RhPositiveInvalid Interpretation [facility]'s Medical CenterComment on above:Performed By: #### [id number] #### [facility] [address], [place] [address]TCK/Rh History Checkon 20-76-0628UGW/Rh History CheckVerified Hx Blood TypeNoSouthview Medical CenterComment on above:Performed By: #### [id number] #### [facility] [address], [place] [address]OUSGgm 59-07-1720UGQX Gel InterpNegativeNormalBrown Memorial HospitalComment on above:Performed By: #### [id number] ####[facility] [address] [place], [place] [address]ZAJXH BANKOrdered By: Brenda Luong on 75-56-9871EAE/Rh InterpPositiveInvalid Interpretation Code [facility] BB SubsectionABSC Gel InterpNegative (11/17/24 8:47 AM)NormalAMERICAN HOSPITAL ASSOCIATION BB SubsectionBlood Bank ID#on [id number]#[id number] Invalid Interpretation CodeBrown Memorial HospitalComment on above:Performed By: #### [id number] #### [facility] [address], [place] [address]Rcpzriabo Instructionson 63-80-1544Fwcwengoc Instructions Discharge Instructions MICHELLE RODRIGUEZ :1960 Visit Date:11/17/2024 Inpatient Discharge Instructions Your Care [...] PM EDT Comments: Keep scheduled appointment Where: [address] [place], [place] [id number]- [employer] (1) Medications What How Much When Why Instructions Next Dose Unchanged acetaminophen-oxycodone (Percocet 5 mg-325 mg oral tablet) See instructions Post-traumatic osteoarthritis of right knee Take one to two oral every 4 hours as needed for surgical pain. Pickup at [facility]/pharmacy #[id number] Unchanged aspirin (aspirin 325 mg Oral EC Tab) 1 Tablets By Mouth Every day Unchanged docusate (Colace 100 mg Cap) 1 Capsules By Mouth 2 times a day Pickup at [facility]/pharmacy #[id number] Unchanged ferrous sulfate (ferrous sulfate 325 mg [...] a day (in the evening) Pharmacy Information [facility]/pharmacy #[id number]: [address] [place], [place] [phone] Allergies No Known Allergies No Known Medication Allergies Devices Implanted/Removed This Visit Notice: You have devices implanted this visit that may not be MRI compatible. Implanted KNEE TOTAL ARTHROPLASTY Knee R ATTUNE FEMORAL POSTERIOR STABILIZED NARROW SIZE 6N RIGHT CEMENTED 11/17/2024 CEMENT SIMPLEX PLAIN VISCOSITY HIGH [6194-1-010] (2), 11/17/2024, Unknown - BRANDY: {01}[id number]{10}[id number]{17}[id number] ATTUNE TIBIAL BASE FIXED BEARING SIZE 5 [...] as told b (more content not included)...Normal Brown Memorial HospitalComment on above:Result Comment: Electronically Signed By: Karen Watson RN\.br\Date and Time Signed: 11/17/24 15:07 EDT Main OR PACU I Recordon 17-04-2958Zwzs OR PACU I RecordMain OR PACU I Record PACU Phase I Document Type FT Summary Primary Physician: Steve Duarte DO Finalized Date/Time: 11/17/24 13:30:31 Pt. Name: MICHELLE RODRIGUEZ/Sex: 1960 Female Med Rec #: [id number] Physician: Steve Duarte DO Financial #: [id number] Pt. Type: A Room/Bed: [facility] Admit/Disch: 11/17/24 08:07:32 - Institution: Case Times [...] Signatures Signed By: Kimmie Jang RN 11/17/24 13:30NormalBrown Memorial HospitalMain OR PACU II Recordon 99-90-9040Vqvn OR PACU II RecordMain OR PACU II Record PACU Phase II Document Type FT Summary Primary Physician: Steve Duarte DO Finalized Date/Time: 11/17/24 17:28:31 Pt. Name: MICHELLE RODRIGUEZ./Sex: 1960 Female Med Rec #: [id number] Physician: Steve Duarte DO Financial #: [id number] Pt. Type: A Room/Bed: [place] [address] Admit/Disch: 11/17/24 08:07:32 - Institution: Case Times [...] Signatures Signed By: Daphne Daniels RN 11/17/24 17:28NoSouthview Medical CenterOperative Reporton [id number] ReportOperative Report Patient: MICHELLE RODRIGUEZ MRN: Age: [...] To Recovery Room in stable and satisfactory condition..[facility] HospitalComment on above:Result Comment: Electronically Signed By: Steve Duarte DO\.br\Date and Time Signed: 11/17/24 12:23 EDTProceduralon [id number] Patient: MICHELLE RODRIGUEZ MRN: Age: 64 years [...] Using maximal sterile barrier technique per current [facility] guidelines including hand hygeine, Guidance (Ultrasound [...] completed by Queen Maren CRNA under my supervision.[facility] HospitalXR KNEE 1 OR 2 VIEWS RIGHTon 50-18-1069Bonelzxjv Study observation (narrative)[facility] HospitalInpatient Patient Summaryon 45-43-6493Irmxzgmjg Patient SummaryInpatient Patient Summary [facility] [address], [place] [address] [facility] Clinical Discharge Instructions PERSON INFORMATION Name: MICHELLE RODRIGUEZ MRN: [facility]#:[id number] PHYSICIANS Admitting Physician: Steve Duarte DO Attending Physician: Steve Duarte DO PCP: Nicolasa BATES, Maggie Discharge Diagnosis: Post-traumatic osteoarthritis of right knee Comment: PATIENT EDUCATION INFORMATION Instructions: Elaina - Total Knee Arthroplasty (CUSTOM) Medication Leaflets: Follow up: With: Address: When: Steve Duarte [address] [place] [address] Business (1) Comments: Keep scheduled appointment Type Location Start [facility] Surgical Services 11/17/2024 12:30 PM 11/17/2024 1:30 [...] Mouth once a day (in the evening). Comment:[facility] Discharge Instructionon 10-01-0888Vwqrnahrap Surgery Discharge InstructionOutpatient Surgery Discharge Instruction [address] [address] Patient Discharge Instructions PERSON INFORMATION Name: [...] Follow up: With: Address: When: Steve Duarte [address] [place] [address] [facility] (1) Comments: Keep scheduled appointment Type Location Start [facility] Surgery [facility] Surgical Services 11/17/2024 12:30 PM 11/17/2024 1:30 [...] to serve you. Thank you for choosing [facility] HERE ARE THE MEDICATION CHANGES THAT OCCURRED [...] (in the evening). PATIENT EDUCATION INFORMATION Instructions: [place], [place] [facility] DISCHARGE INSTRUCTIONS TOTAL KNEE [...] Page 2 Physical Therapy (more content not included)...[facility] ABO/Rh RetypeOrdered By: Mercedes Chavarria on 92-41-9970XUU/Rh Retype InterpPositive Invalid Interpretation [facility] BB SubsectionComment on above:Performed By: #### [id number] #### [facility] [address] [place] [address] 91207DCQTbkhgxt By: SYSTEM SYSTEM on 71-77-5270Yglhx gap [Moles/Vol] 14 mmol/LNormal6-16Remisol ChemComment on above:Performed By: #### [id number] #### [facility] [address], [place] [address]Utjjruv [Mass/Vol]9.7 mg/dLNormal8.9-11.1Remisol ChemComment on above:Performed By: #### [id number] #### [facility] [address] [place] [address] 61210Yqjyaezx [Moles/Vol]104 mmol/TFdpgyw403-173Aldzjko ChemComment on above:Performed By: #### [id number] #### [facility] [address], [place] [address]SO7 [Moles/Vol]25 mmol/WCrxxlp59-06Kqfuzws ChemComment on above:Performed By: #### [id number] #### [facility] [address], [place] [address]Rfncxentmv [Mass/Vol]0.9 mg/dLNormal0.5-1.3Remisol ChemComment on above:Performed By: #### [id number] #### [facility] [address], [place] [address]Mfpqwde [Mass/Vol]89 mg/oLOnwerk55-281Fvfibeg ChemComment on above:Performed By: #### [id number] #### [facility] [address], [place] [address]Rculjgbdr [Moles/Vol]4.0 mmol/LNormal3.5-5.3Remisol ChemComment on above:Performed By: #### [id number] #### [facility] [address] [place] [address] 34555Vlcjqf [Moles/Vol]139 mmol/XGmhgkm139-029Ubhnwhs ChemComment on above:Performed By: #### [id number] #### [facility] [address] [place] [address] 36[address]Burg nitrogen [Mass/Vol]21 mg/dLNormal5-21Remisol ChemComment on above:Performed By: #### [id number] #### [facility] [address] [place] [address] 25577AIBmk 58-60-7728Efpl nitrogen/Creatinine [Mass ratio]23 No NhpgtWdel90-32Lkhxuy [address]. Agnes HospitalComment on above:Performed By: #### [id number] #### [facility] [address] [place] [address] 13720ZZK w/ Auto DiffOrdered By: SYSTEM SYSTEM on 10-31-2024 Basophils/100 WBC (Bld)0.2 %Normal0.0-2.0Remisol HemeComment on above:Performed By: #### [id number] #### [facility] [address] [place] [address]24[address]Ntxinuapt/Leukocytes Auto (Bld) [Pure # fraction]0.0 E9/LNormal 0.0-0.2Remisol HemeComment on above:Performed By: #### [id number] #### [facility] [address] [place] [address] 26418Ydjdnbrtkup (Bld) [#/Vol]0.1 E9/LNormal0.0-0.5Remisol Heme Comment on above:Performed By: #### [id number] #### [facility] [address] [place] [address] 10495Ctsarixmvho/100 WBC (Bld)2.3 %Normal0.0-8.0Remisol HemeComment on above:Performed By: #### [id number] #### [facility] [address] [place] [address] 69344Blhxbysnxdk distribution width (RBC) [Ratio]13.3 %Normal 10.9-14.2Remisol HemeComment on above:Performed By: #### [id number] #### [facility] [address] [place] [address] 085[address]Qxngzbylyh (Bld) [Volume fraction]38.3 %Wbudkw52.0-46.0Remisol HemeComment on above:Performed By: #### [id number] #### [facility] [address] [place] [address] 57407Burzpzulab (Bld) [Mass/Vol]13.0 g/cTOrzxfp85.0-16.0Remisol Heme Comment on above:Performed By: #### [id number] #### [facility] [address] [place] [address] 05619Rmptsxhwlzp (Bld) [#/Vol]2.0 E9/LNormal1.0-4.0Remisol Heme Comment on above:Performed By: #### [id number] #### [facility] [address] [place] [address] 909[address]Jeizzmgajwu/100 WBC (Bld)33.4 %Bexruj92.0-50.0Remisol Heme Comment on above:Performed By: #### [id number] #### [facility] [address] [place] [address] 28765FWG (RBC) [Entitic mass]30.6 qrCjhpam15.0-34.0Remisol Heme Comment on above:Performed By: #### [id number] #### [facility] [address] [place] [address] 065[address]KJGT (RBC) [Mass/Vol]34.0 g/dERnezkv57.4-36.0Remisol Heme Comment on above:Performed By: #### [id number] #### [facility] [address] [place] [address] 65107VBR (RBC) [Entitic vol]89.9 qUGpggig11.0-100.0Remisol Heme Comment on above:Performed By: #### [id number] #### [facility] [address], [place] [address]Fkrmflqak (Bld) [#/Vol]0.5 E9/LNormal0.2-1.0Remisol HemeComment on above:Performed By: #### [id number] #### [facility] [address] [place] [address] 422[address]Qzejgysejvt (Bld) [#/Vol]3.2 E9/LNormal2.0-7.5Remisol Heme Comment on above:Performed By: #### [id number] #### [facility] [address] [place] [address] 17204Zbnsibrgnff/100 WBC (Bld)55.6 %Imvzsx77.0-75.0Remisol Heme Comment on above:Performed By: #### [id number] #### [facility] [address] [place] [address] 50971Gmvpjqyt mean volume (Bld) [Entitic vol]8.9 fLNormal6.4-10.8 Remisol HemeComment on above:Performed By: #### [id number] #### [facility] [address] [place] [address] 73[address]Vqsnwyfym (Bld) [#/Vol]275.0 E9/BGgrteh665.0-500.0Remisol Heme Comment on above:Performed By: #### [id number] #### [facility] [address] [place] [address] 09402QWR (Bld) [#/Vol]4.3 E12/LNormal4.3-5.9Remisol HemeComment on above:Performed By: #### [id number] #### [facility] [address] [place] [address] 23009PJC corrected for nucl RBC Auto (Bld) [#/Vol]5.9 E9/LNormal 4.0-11.0Remisol HemeComment on above:Performed By: #### [id number] #### [facility] [address] [place] [address] 49584UOPOOIWMVOdysjzc By: SYSTEM SYSTEM on 08-76-8159Kzyt nitrogen/Creatinine [Mass ratio]23 mg/xzJgwj01 - 20Remisol ChemHEMATOLOGYOrdered By: SYSTEM SYSTEM on 51-31-6611Nqwajjhps/100 WBC (Bld)8.5 %Normal4.0 - 14.0 % Remisol HemeUA WITH CULT RFLXon 81-78-0125JLLQKRTRQ:PRTHR:PT:URINE:ORD:TEST STRIP.AUTOMATEDNegativeNegative mg/dLSaint John's [facility] CLARITY:TYPE:PT:URINE:NOM:ClearClearSaint John's [facility] Hospital CLASS:TYPE:PT:URINE COLLECTION METHOD:NOM:*Clean CatchSaint John's Saint [facility] Hospital COLOR:TYPE:PT:URINE:NOM:AUTOLight-YellowYellowSaint Alexius HospitalComment on above: Microscopic readings are only performed on those samples that meet specific criteria set forth by [facility].[employer] [facility] PH:LSCNC:PT:URINE:QN:TEST STRIP5.05.0 - 9.0[facility] SPECIFIC GRAVITY:RDEN:PT:URINE:QN:TEST STRIP1.0221.005 - 1.030[facility] GLUCOSE:PRTHR:PT:URINE:ORD:TEST STRIPNegativeNegative mg/dLSaint Alexius Hospital HEMOGLOBIN:MCNC:PT:URINE:SEMIQN:TEST STRIP.AUTOMATEDNegativeNegative mg/dLUNIVERSITY OF UTAH HOSPITAL HealthcareKETONES:PRTHR:PT:URINE:ORD:TEST STRIP.AUTOMATEDNegativeNegative mg/dL NOMS HealthcareLEUKOCYTE ESTERASE:PRTHR:PT:URINE:ORD:TEST STRIP.AUTOMATED NegativeNegative CD:[id number] Alexius HospitalNITRITE:PRTHR:PT:URINE:ORD:TEST STRIP.AUTOMATEDNegativeNegative mg/dLUNIVERSITY OF U[facility]H [facility]OSPITAL Healthcare PROTEIN:PRTHR:PT:URINE:ORD:TEST STRIPNegativeNegative mg/dLUNIVERSITY OF UTAH HOSPITAL Healthcare UROBILINOGEN:MCNC:PT:URINE:SEMIQN:TEST STRIPNegativeNegative mg/dLUNIVERSITY OF UTAH HOSPITAL HealthcareOriginal Ordering Provider: DO Steve Mccauley HealthcareUA with Cult RflxOrdered By: SYSTEM SYSTEM on 83-54-3439Yurxvbobd Ql (U)NegativeNormalNegativeAMERICAN HOSPITAL ASSOCIATION UA Auto SSComment on above:Performed By: #### [id number] #### [facility] [address], [place] [address]Fywxxxy Ql (U)NegativeNormalNegativeAMERICAN HOSPITAL ASSOCIATION UA Auto SSComment on above:Performed By: #### [id number] #### [facility] [address], [place] [address]Subozecbio Auto test strip (U) [Mass/Vol]NegativeNormalNegative [employer] [facility] UA Auto SSComment on above:Performed By: #### [id number] #### [facility] [address], [place] [address]Dnsqtul Auto test strip Ql (U)NegativeNormalNegativeAMERICAN HOSPITAL ASSOCIATION UA Auto SSComment on above:Performed By: #### [id number] #### [facility] [address] [place] [address]30[address]Oggaxoiff esterase Auto test strip Ql (U)NegativeNormalNegative [employer] [facility] UA Auto SSComment on above:Performed By: #### [id number] #### [facility] [address], [place] [address]Anrblhw Auto test strip Ql (U)NegativeNormalNegativeAMERICAN HOSPITAL ASSOCIATION UA Auto SSComment on above:Performed By: #### [id number] #### [facility] [address] [place] [address] 768[address]Rwojphz Ql (U)NegativeNormalNegativeAMERICAN HOSPITAL ASSOCIATION UA Auto SSComment on above:Performed By: #### [id number] #### [facility] [address] [place] [address] 760[address]Mwybkxdyorrh (U) [Mass/Vol]NegativeNormalNegativeAMERICAN HOSPITAL ASSOCIATION UA Auto SSComment on above:Performed By: #### [id number] #### [facility] [address] [place] [address] 304[address]KQ with Cult Rflxon 43-36-4980Yfceuvs (U)ClearNormalClearFisher St. Agnes HospitalComment on above:Performed By: #### [id number] #### [facility] [address] [place] [address] 54753Yxoki (U)Light-YellowNormalYellowBrown Memorial Hospital Comment on above:Result Comment: Microscopic readings are only performed on those samples that meet specific criteria set forth by [facility].Performed By: #### [id number] #### [facility] [address], [place] [address]kA (U)5.0 [pH]Invalid Interpretation Code5.0-9.0[facility] Memorial HospitalComment on above:Performed By: #### [id number] #### [facility] [address] [place] [address] 17308Qodusden gravity (U) [Rel density]1.022Invalid Interpretation Code1.005-1.030[facility] Memorial HospitalComment on above:Performed By: #### [id number] #### [facility] [address] [place] [address] 16300Socy of Urine collection methodClean CatchTriHealth Bethesda North HospitalComment on above:Performed By: #### [id number] #### [facility] [address] [place] [address] 20615ONLXHPTVWATkfxssg By: SYSTEM SYSTEM on 63-18-6709Aeuvlxe (U) Clear (10/31/24 3:00 PM)NormalClearFMUSCOGEE UA Auto SSColor (U)Light-Yellow 1 (10/31/24 3:00 PM)NormalYellowAMERICAN HOSPITAL ASSOCIATION UA Auto SSComment on above:Interpretive Data: Microscopic readings are only performed on those samples that meet specific criteria set forth by [facility].pH (U)5.0 *NA* (10/31/24 3:00 PM)Invalid Interpretation Code5.0 - 9.0[facility] [facility] [employer] UA Auto SSSpecific gravity (U) [Rel density]1.022 *NA* (10/31/24 3:00 PM)Invalid Interpretation Code1.005 - 1.030[facility] [facility] [employer] UA Auto SS URINALYSISOrdered By: Sienna Maza on 50-98-2367PQ Spec DescClean Catch (10/31/24 3:00 PM)NormalAMERICAN HOSPITAL ASSOCIATION UA Auto SSeGFROrdered By: SYSTEM SYSTEM on 26-83-3919pLMZ78 mL/min/1.73 o8Kybwct>=59Remisol ChemComment on above:Performed By: #### [id number] #### [facility] [address] [place], [place] [address]D Inj/Asp: bilateral kneeon 08-11-5033Nxnujr Smith, [place] 06/03/2024 2:17 PM L Inj/Asp: bilateral knee on 06/03/2024 1:45 PM Indications: diagnostic evaluation Details: 22 G needle Medications (Right): 2 mL sodium hyaluronate 16.8 MG/2ML Medications (Left): 2 mL sodium hyaluronate 16.8 MG/2ML Outcome: tolerated well, no immediate complications Consent was given by the patient.[facility]L Inj/Asp: bilateral kneeon 30-40-6000Sypbnd Smith, [place] 05/27/2024 2:15 PM L Inj/Asp: bilateral knee on 05/27/2024 1:55 PM Indications: diagnostic evaluation Details: 22 G needle Medications (Right): 2 mL sodium hyaluronate 16.8 MG/2ML Medications (Left): 2 mL sodium hyaluronate 16.8 MG/2ML Outcome: tolerated well, no immediate complications Consent was given by the patient. [facility] CenterNo Panel Informationon 08-06-4631Yviyli Smith, [place] 05/20/2024 2:58 PM L Inj/Asp: bilateral knee on 05/20/2024 2:25 PM Indications: diagnostic evaluation Details: 22 G needle Medications (Right): 2 mL sodium hyaluronate 16.8 MG/2ML Medications (Left): 2 mL sodium hyaluronate 16.8 MG/2ML Outcome: tolerated well, no immediate complications Consent was given by the patient. [facility] CenterRadiology Study observation (narrative)[facility] Knee - left 3 Viewson 93-51-7840Rzlefft Result: Multiple weightbearing views (AP, Lateral and sunrise) are reviewed for the permanent PACS record. Advanced grade 3-4 degenerative changes are present of the bilateral knee. No fracture, dislocation, tumor or infection seen. Images are reviewed with the patient at length.[facility] K[facility] - right 3 Viewson 04-92-4201Korblub Result: Multiple weightbearing views (AP, Lateral and sunrise) are reviewed for the permanent PACS record. Advanced grade 3-4 degenerative changes are present of the bilateral knee. No fracture, dislocation, tumor or infection seen. Images are reviewed with the patient at length.[facility] NOMS HealthcareMain OR Intraoperative Recordon 07-55-6617Gsfy OR Intraoperative RecordMain OR Intraoperative Record IntraOp Document Type FT Summary Primary Physician: Steve VAZQUEZ MD Finalized Date/Time: 05/13/24 10:26:02 Pt. Name: MICHELLE RODRIGUEZ/Sex: 1960 Female Med Rec #: [id number] Physician: Steve VAZQUEZ MD Financial #: [id number] Pt. Type: O Room/Bed: / Admit/Disch: 05/12/24 [...] Steve Tejada RN, Rosangela Giraldo Role Performed LINDA Surgeon - Primary Him Tech - Primary Time In 05/12/24 07:56:00 05/12/24 07:56:00 05/12/24 07:56:00 Time Out 05/12/24 08:18:00 05/12/24 08:18:00 05/12/24 08:18:00 Procedure COLONOSCOPY(.) COLONOSCOPY(.) COLONOSCOPY(.) Comments Dr. Ford supervising case Last Modified By: Mallory HARRY, Rosangela Tejada RN, Rosangela Tejada RN, Rosangela Giraldo 05/12/24 08:17:58 F 05/12/24 08:17:58 F 05/12/24 [...] and tissue Entry 1 Skin Integrity Intact, [place], Warm, & Skin Abnormality No Dry Outcomes [...] Extended Positioning Device Safe (more content not included)...[facility] 52-30-9369Snmthjhnx Reminders From: Kary Ballard LPN To: N - Clinical; Sent: 05/13/2024 10:07:25 EST Show up: 04/11/2034 07:00:00 EDT Subject: colonoscopy recall Due Date/Time: 05/12/2034 07:00:00 EST Reminder/Recall Patient due for screening colonoscopy 05/12/2034.[facility] HospitalDischarge Instructionson 56-63-9124Tnkcefgnq InstructionsDischarge Instructions MICHELLE RODRIGUEZ :1960 Visit Date:05/12/2024 Inpatient [...] Steve VAZQUEZ When: Only if needed Where: [address], [address] [address]- Business (1) Medications What How [...] Fresh fruits, fresh vegeta (more content not included)...[facility] HospitalComment on above:Result Comment: Electronically Signed By: Ramona Santiago RN\.lloyd\Date and Time Signed: 05/12/24 08:27 ESTInpatient Patient Summaryon 14-51-1581Adlisjpzt Patient SummaryInpatient Patient Summary [address] [address] [facility] Clinical Discharge Instructions PERSON INFORMATION Name: MICHELLE RODRIGUEZ MRN: PHYSICIANS Admitting Physician: Steve VAZQUEZ MD Attending Physician: Steve VAZQUEZ MD PCP: Nicolasa BATES, Maggie Discharge Diagnosis: Diverticulosis of sigmoid colon Comment: PATIENT EDUCATION INFORMATION Instructions: Medication Leaflets: Follow up: With: Address: When: Steve GEORGE [address] [place] [address], [address], [address] [address] Business (1) , only if needed MEDICATION [...] Mouth once a day (in the evening). Comment:[facility] HospitalMain OR PACU II Recordon 21-26-5876Vcpq OR PACU II RecordMain OR PACU II Record PACU Phase II Document Type FT Summary Primary Physician: Steve VAZQUEZ MD Finalized Date/Time: 05/12/24 09:10:29 Pt. Name: MICHELLE RODRIGUEZ /Sex: 1960 Female Med Rec #: [id number] Physician: Steve VAZQUEZ MD Financial #: [id number] Pt. Type: O Room/Bed: / Admit/Disch: 05/12/24 [...] Signatures Signed By: Ramona Santiago RN 05/12/24 09:10[facility] HospitalMain OR Preoperative Recordon 92-24-9972Wpst OR Preoperative RecordMain OR Preoperative Record Holding Area Document Type FT Summary Primary Physician: Steve VAZQUEZ MD Finalized Date/Time: 05/12/24 06:58:01 Pt. Name: MICHELLE RODRIGUEZ/Sex: 1960 Female Med Rec #: [id number] Physician: Steve VAZQUEZ MD Financial #: [id number] Pt. Type: O Room/Bed: / Admit/Disch: 05/12/24 [...] Signatures Signed By: Rosangela Tejada RN 05/12/24 06:58[facility] Discharge Instructionon 14-09-4057Oyuxtjgedg Surgery Discharge InstructionOutpatient Surgery Discharge Instruction [address] [address] Patient Discharge Instructions PERSON INFORMATION Name: EVE MICHELLE Almanza Date of : 1960 Current Date: 05/12/2024 08:24:36 PHYSICIANS Admitting Physician: GEORGE BATES, Steve Clinton Discharge Diagnosis: Diverticulosis of sigmoid colon MICHELLE [...] THE NEAREST EMERGENCY ROOM OR CALL 911 I, MICHELLE RODRIGUEZ, have received the attached patient education materials/instructions and have verbalized understanding: May we do a follow up call? Yes No I was present when discharge instructions were given Patient Signature Date Clinican/Nurse Signature Date Follow up: With: Address: When: Steve VAZQUEZ [address] [place] [address] [place], [address], [place] [phone] [facility] (1) , only if needed [...] to serve you. Thank you for choosing [facility] HERE ARE THE MEDICATION CHANGES THAT OCCURRED [...] the evening). PATIENT EDUCATION INFORMATION Instructions: Medication Leaflets:[facility] HospitalAmbulatory Visit Summaryon 05-30-5057Krhaoejxff Visit SummaryAmbulatory Visit Summary MICHELLE RODRIGUEZ :1960 MRN: Visit Date:04/30/2024 Ambulatory Visit Instructions Your Care Team Attending Physician - Steve VAZQUEZ MD Primary Care Physician - Maggie Baldwin MD [...] you for choosing us for your care. [facility] HospitalCT ABDOMEN PELVIS W IV CONTRAST on 44-43-1433SB ABDOMEN PELVIS W IV CONTRASTEXAMINATION: CT OF [...] Signed by: Hayder Nixon DO 12/11/23 Final resultNormalMercy Connecticut HospiceCreatinineon 82-01-9563Suxvvlqjup [Mass/Vol]0.9 mg/dL0.5 - 0.9 mg/dLBON LANCASTER MUNICIPAL HOSPITALEst, Glom Filt Rate72- PINFBON LANCASTER MUNICIPAL HOSPITALComment on above: These results are not intended [...] following therapy that affects renal tubular secretion. NANDA AMOSDUNLAP MEMORIAL HOSPITALCreatinine w/GFRon 89-93-9323Udzanededu [Mass/Vol]0.9 mg/dLNormal0.5-0.9St. Mary'S Medical CenterComment on above:Performed By: #### CREG #### [facility] [address] [place] [address] Real Estate Financial Analyst: Krissy Sweet MDGFR/1.73 sq M.predicted among non-blacks MDRD (S/P/Bld) [Vol rate/Area]72 mL/min/{1.73_m2}Normal>60[facility] Comment on above:Result Comment: These results are [...] renal tubular secretion.Performed By: #### CREG #### [facility] [address] [place] [address] Real Estate Financial Analyst: Krissy Sweet MDUS NON OB TRANSVAGINALon 10-81-1782TB NON OB TRANSVAGINALUTERUS: Anteverted uterus with a heterogeneous echotexture ENDO: measures 3.5 mm RT. OVARY: Not visualized LT. OVARY: Not visualized Questionable adenomyosis of the uterus? FIBROIDS: #1 Mid posterior uterus measures 2.8 x 1.9 x 4.0 cm #2 Mid Right uterus measures 2.0 x 1.7 x 1.8 cm Interpreted by: Emily Yoo, [employer]IV[employer]ITY TE[employer]ER [employer]AM Cinthya Cano DO Signed by: Cinthya Cano DO 12/05/23 Final resultNoGood Samaritan HospitalCult,Genitalon 12-03-2023 Cult,GenitalSpecimen Description .VAGINA Special Requests Site: Genital Culture STREPTOCOCCI, BETA HEMOLYTIC GROUP B LIGHT GROWTH NORMAL URO-GENITAL DENISE NEGATIVE FOR NEISSERIA GONORRHOEAE Report Status FINAL 12/03/2023NoSamaritan HospitalComment on above: Performed By: #### GEC #### [facility] HospitalBook [facility] [address] [address] Real Estate Financial Analyst: Kenton Marcelino MD [facility] [address] [place] [address] [place] [address] Real Estate Financial Analyst: Krissy Sweet MDHPV DNA High Riskon 56-12-6716ZIG InterpNParkwood HospitalComment on above:Result Comment: This test amplifies and [...] other forensic purposes.Performed By: #### HPVH #### [facility] [address] [place] [address] Real Estate Financial Analyst: Kenton Marcelino MDHPV Type 16Not detectedNoTriHealth McCullough-Hyde Memorial HospitalComment on above:Performed By: #### HPVH #### [facility] [address] [place] [address] [id number] Real [employer] Financial Analyst: Kenton Marcelino MDHPV Type 18Not detectedCrystal Clinic Orthopedic CenterComment on above:Performed By: #### HPVH #### [facility] [address] [place] [phone] Real Estate Financial Analyst: Kenotn Marcelino MDOther High Risk HPVNot detectedNormalNOTDETMercy Connecticut HospiceComment on above:Performed By: #### HPVH #### [facility] [place] [address] Real Estate Financial Analyst: Kenton Marcelino MDHPV DNA High Riskon 61-71-8635GYW Sample.THIN PREPNormalSt. Mary'S Medical CenterComment on above:Performed By: #### HPVH #### [facility] [place] [address] Real Estate Financial Analyst: CRISTIN LehmanourceCERVICAL MATERIALFisher-Titus Medical CenterComment on above:Performed By: #### HPVH #### [facility] [address] [place] [address] Real Estate Financial Analyst: Kenton Marcelino MDVaginitis DNA Probeon 12-82-9575DfaxnmcIqifjbkw NormalNEGSt. Mary'S Medical CenterComment on above:Result Comment: for Olena sp. Method of testing is a DNA probe intended for detection and identification of Olena species, Gardnerella vaginalis, and Trichomonas vaginalis nucleic acid in vaginal fluid specimens from patients with symptoms of vaginitis/vaginosis. Performed By: #### VAGP #### [address] [address] Real Estate Financial Analyst: Kenton Marcelino MD [facility] Lab [address] [place] [address] [place] [address] Real Estate Financial Analyst: Cora BradleygativeNOhio Valley Surgical Hospital Comment on above:Result Comment: for Gardnerella vaginalisPerformed By: #### VAGP #### [address] [address] Real Estate Financial Analyst: Kenton Marcelino MD [address] [place] [address] Real Estate Financial Analyst: Krissy Sweet MDTrichomonasNegativeNormalNEGMercy [facility] Comment on above:Result Comment: for Trichomonas VaginalisPerformed By: #### VAGP #### [address] [place], [place] [id number] Real Estate Financial Analyst: Kenton Marcelino MD [facility] Lab [address] [place] [address] Real Estate Financial Analyst: UMM Bradleyytology Reporton [id number] report Cyto stain.thin prep Doc (Cvx/Vag)(NOTE) Path Number: [id number] DIAGNOSIS Imaged ThinPrep Pap - Cervical (1 [...] or for other forensic purposes. Performed at [address] [id number] ([phone] Source of Specimen: A: Imaged ThinPrep Pap - Cervical (1 monolayer slide) HPV Reflex?......................HPV Regardless Clinical History Postmenopausal Z12.4 Encounter for screening for malignant neoplasm of cervix Processing Lab: [address] [phone] Interpretation performed at [address] [phone] This Pap Test has been evaluated with the assistance of the OrexoPrep Pap Test Imaging System. The Pap smear is a screening test primarily for squamous epithelial lesions, which is subject to both false negative and false positive results. Your patient should be reminded to consult you immediately if she experiences any suspicious signs or symptoms, regardless of her Pap smear result. GYNECOLOGIC CYTOLOGY REPORT Patient Name: MICHELLE RODRIGUEZ [facility] Rec: [id number] [facility] CONSULTING PATHOLOGISTS [facility] ANATOMIC PATHOLOGY [address] [place] [phone] NoSamaritan HospitalVaginitis DNA Probeon 11-29-2023 Source.VAGINAL SWABNoSamaritan HospitalComment on above:Performed By: #### VAGP #### [address] [address] Real Estate Financial Analyst: Kenton Marcelino MD [facility] Lab [address] [place] [address] [place] [address] Real Estate Financial Analyst: MADELEINE Bradley MAMM SCREEN 3D SHELIA CADon 68-64-2794BG MAMM SCREEN 3D SHELIA CADPatient: MICHELLE RODRIGUEZ Exam Date: 10/17/2022 : 1960 Gender:F Ordering : DR MAGGIE BALDWIN . Admission #: [id number] Family : Order #: [id number] CLICK HERE TO VIEW EXAM RADIOLOGY REPORT [...] unknown cancer at age 80. LOCATION: [facility] BREAST COMPOSITION: Heterogeneously dense,which may [...] by: Krissy Richmond MD on 10/18/2022 at 09:12NoAdams County HospitalOCC BLD IMMUNO SCREENon 10-00-4769LGYCXP BLOODNegativeNormalNEGATIVEThe [facility] CenterComment on above:Performed By: #### OBSCRN #### [facility] Laboratory [address] [place] [address] Dr. Estrella CurtisINSULINon 70-76-3400Qsdokzb5.5 uIU/mLNormal2.6-24.9The [facility] CenterComment on above:Performed By: #### INSULIN #### [facility] Laboratory [address] [place] [address] Dr. Estrella Glass AUTO DIFFon 78-28-8516SSXT #0.0 103/ulNormal0.0-0.1The [facility] CenterComment on above:Performed By: #### CBC #### [facility] Laboratory [address] [place] [address] Dr. Estrella CurtisBasophils/100 WBC (Bld)0.4 %Normal0.2-2.0[facility] Comment on above:Performed By: #### CBC #### [facility] Laboratory [address] [place] [address] Dr. De La Rosa ChangEGege #0.1 103/ulNormal0.0-0.7The [facility] CenterComment on above: Performed By: #### CBC #### [facility] Laboratory [address] [place] [address] Dr. Estrella Pavonosinophils/100 WBC (Bld)2.8 %Normal0.9-7.0[facility] Comment on above:Performed By: #### CBC #### [facility] Laboratory [address] [place] [address] Dr. Estrella Pavonrythrocyte distribution width (RBC) [Ratio]13.3 %Cexxwb17.0-15.0 The [facility] CenterComment on above:Performed By: #### CBC #### [facility] Laboratory [address] [place] [address] Dr. Estrella CurtisHematocrit (Bld) [Volume fraction]37.4 %Xnjosd20.0-48.0The [facility] CenterComment on above:Performed By: #### CBC #### [facility] Laboratory [address] [place] [address] Dr. Estrella CurtisHemoglobin (Bld) [Mass/Vol]12.4 g/rZAliyis63.0-16.0The [facility] CenterComment on above:Performed By: #### CBC #### [facility] Laboratory [address] [place] [address] Dr. Estrella Graham #0.01 10e3/ulNormal0.00-0.03The [facility]st Hospitalment on above:Performed By: #### CBC #### [facility] Laboratory [address] [place] [address] Dr. Estrella Graham %0.2 %Normal0.0-0.5The [facility]st Hospitalment on above: Performed By: #### CBC #### [facility] Laboratory [address] [place] [address] Dr. Estrella ArroyoH #1.6 103/ulNormal1.2-3.8The [facility] CenterComment on above:Performed By: #### CBC #### [facility] Laboratory [address] [place] [address] Dr. Esterlla Trejomphocytes/100 WBC (Bld)34.3 %Pycrty93.5-60.0The [facility] CenterComment on above:Performed By: #### CBC #### [facility] Laboratory [address] [place] [address] Dr. Estrella Jackman DIFF REQNONormalThe [facility] CenterComment on above: Performed By: #### CBC #### [facility] Laboratory [address] [place] [address] Dr. Estrella Khan (RBC) [Entitic mass]29.7 srKymvpw28.7-34.0The [facility] HospitalComment on above:Performed By: #### CBC #### [facility] Laboratory [address] [place] [address] Dr. Estrella Khan (RBC) [Mass/Vol]33.2 g/tSNqcimw47.9-35.2The [facility] CenterComment on above:Performed By: #### CBC #### [facility] Laboratory [address] [place] [address] Dr. Estrella Khan (RBC) [Entitic vol]89.5 uLTahhhr95.0-99.0The [facility] CenterComment on above:Performed By: #### CBC #### [facility] Laboratory [address] [place] [address] Dr. Estrella Shaikh #0.4 103/ulNormal0.3-0.8The [facility] CenterComment on above:Performed By: #### CBC #### [facility] Laboratory [address] [place] [address] Dr. Estrella Zamoraocytes/100 WBC (Bld)9.2 %Normal1.7-12.0[facility] Comment on above:Performed By: #### CBC #### [facility] Laboratory [address] [place] [address] Dr. Estrella Hernandez #2.4 103/ulNormal1.4-6.5The [facility] CenterComment on above:Performed By: #### CBC #### [facility] Laboratory [address] [place] [address] Dr. Estrella Everettutrophils/100 WBC (Bld)53.1 %Vgejjb12.0-75.0The [facility] CenterComment on above:Performed By: #### CBC #### [facility] Laboratory [address] [address] [address] Estrella Sheehan mean volume (Bld) [Entitic vol]10.1 fLNormal9.5-13.5The [facility] CenterComment on above:Performed By: #### CBC #### [facility] Laboratory [address] [place] [address] Dr. Estrella CurtisPLT276 103/xmJssopr221-896Ria [facility] CenterComment on above: Performed By: #### CBC #### [facility] Laboratory [address] [place] [address] Dr. Estrella uCrtisRBC4.18 106/ulCritically low4.20-5.40The [facility] CenterComment on above:Performed By: #### CBC #### [facility] Laboratory [address] [place] [address] Dr. Estrella CurtisWBC4.6 103/ulNormal4.0-11.0The [facility] CenterComment on above: Performed By: #### CBC #### [facility] Laboratory [address] [place] [address] Dr. Estrella Smith THYROXINE INDEX T7on 99-16-7315KSO7.91Pdbtls5.30-4.50The [facility] CenterComment on above:Performed By: #### TSH, T7, LIPID, CMP ####[facility] [address] [address]Dr. Estrella CurtisT3U33.0 %Uljyeg84.0-39.0The [facility] CenterComment on above: Performed By: #### TSH, T7, LIPID, CMP ####[facility] [address] [address]Dr. Estrella CurtisT4 [Mass/Vol]9.50 ug/dLNormal 4.80-13.90The [facility] CenterComment on above:Performed By: #### TSH, T7, LIPID, CMP ####[facility] [address] [place], [place] [address]Dr. Estrella CurtisGLYCOHEMOGLOBIN A1Con 93-77-5055ZGG RECOMMENDATIONSEE BELOW NormalThe [facility] on above:Result Comment: ADA RECOMMENDED LIMIT 4.0 - 6.0 ADA THERAPEUTIC TARGET < 7.0 ACTION SUGGESTED > 7.0Performed By: #### A1C #### [facility] Laboratory [address] [address] [address] Estrella CurtisGlucose [Mass/Vol]120 mg/dLNoAdams County HospitalComselect specialty hospital-[facility] on above:Performed By: #### A1C #### [facility] Laboratory [address] [address] [address] Estrella CurtisHbA1c (Bld) [Mass fraction]5.8 %Normal4.5-6.2The [facility] CenterComselect specialty hospital-[facility] on above:Performed By: #### A1C #### [facility] Laboratory [address] [place] [address] Dr. Estrella Tejada 79-58-6641Ozcp [Mass/Vol]82.0 ug/bOVtspzh10.0-170.0The [facility] on above:Performed By: #### IRON #### [facility] Laboratory [address] [address] [address] Estrella CurtisLIPID PROFILEon 78-60-7753BLWZ-HDL RATIO NORMSEE BELOWNoAdams County HospitalComselect specialty hospital-ann arbor on above:Result Comment: 3.3 - 4.4 LOW RISK 4.4 - 7.1 AVERAGE RISK 7.1 - 11.0 MODERATE RISK >11.0 HIGH RISKPerformed By: #### TSH, T7, LIPID, CMP #### [facility] Laboratory [address] [address] [address] Estrella CurtisCholesterol [Mass/Vol]203 mg/dLCritically high<=200The [facility] on above:Performed By: #### TSH, T7, LIPID, CMP #### [facility] Laboratory [address] [address] [address] Estrella CurtisCholesterol in HDL [Mass/Vol]62 mg/dLCritically agyd61-27Tjo [facility] on above:Performed By: #### TSH, T7, LIPID, CMP #### [facility] Laboratory [address] [address] [address] Estrella CurtisCholesterol in LDL [Mass/Vol]122.2 mg/dLOhioHealth Grant Medical CenterComment on above:Performed By: #### TSH, T7, LIPID, CMP #### [facility] Laboratory [address] [address] [address] Estrella Cohenesterian.total/Cholesterol in HDL [Mass ratio]3.3 {ratio} NormalThe [facility] CenterComselect specialty hospital-[facility] on above:Performed By: #### TSH, T7, LIPID, CMP #### [facility] Laboratory [address] [address] [address] Estrella Dahl NORMAL> or = 60 mg/dl - LOW CARDIOVASCULAR RISK <40 mg/dl - HIGH CARDIOVASCULAR RISKNoAdams County HospitalComment on above:Performed By: #### TSH, T7, LIPID, CMP #### [facility] Laboratory [address] [address] [address] Estrella Del Angel CALC NORMALSEE BELOWOhioHealth Grant Medical CenterComment on above:Result Comment: <100 mg/dl OPTIMAL 100 - 129 mg/dl NEAR OR ABOVE OPTIMAL 130 - 159 mg/dl BORDERLINE HIGH 160 - 189 mg/dl HIGH >190 mg/dl VERY HIGH Performed By: #### TSH, T7, LIPID, CMP #### [facility] [address] [address] [address] Estrella CurtisTriglyceride [Mass/Vol]94 mg/dLNormal<=150[facility] Comment on above:Performed By: #### TSH, T7, LIPID, CMP #### [facility] [address] [address] [address] Estrella CurtisVLDL CALC18.8 mg/dLNoAdams County HospitalComment on above: Performed By: #### TSH, T7, LIPID, CMP #### [facility] Laboratory [address] [address] [address] Estrella CurtisPROF 14(COMP METB)on 62-55-7329Tgfexbk [Mass/Vol]4.3 g/dLNormal 3.4-5.0The [facility] CenterComment on above:Performed By: #### TSH, T7, LIPID, CMP #### [facility] Laboratory [address] [place] [address] Dr. Estrella CurtisAlbumin/Globulin [Mass ratio]1.3 {ratio}NormalThe [facility] CenterComment on above:Performed By: #### TSH, T7, LIPID, CMP #### [facility] Laboratory [address] [place] [address] Dr. Estrella Contreras [Catalytic activity/Vol]84 U/XNznzvk85-432Oyi [facility] CenterComment on above:Performed By: #### TSH, T7, LIPID, CMP #### [facility] Laboratory [address] [place] [address] Dr. Estrella Gilbert [Catalytic activity/Vol]48 U/VGnvlko39-91Ozo [facility] CenterComment on above:Performed By: #### TSH, T7, LIPID, CMP #### [facility] Laboratory [address] [place] [address] Dr. Estrella Cobian gap [Moles/Vol]12.0 mmol/LNormalThe [facility] Comment on above:Performed By: #### TSH, T7, LIPID, CMP #### [facility] Laboratory [address] [place] [address] Dr. Estrella Duke [Catalytic activity/Vol]33 U/EYierpc48-65Eoa [facility] Hospitalment on above:Performed By: #### TSH, T7, LIPID, CMP #### [facility] Laboratory [address] [place] [address] Dr. Estrella CurtisBilirubin [Mass/Vol]0.5 mg/dLNormal0.2-1.0The [facility] Comment on above:Performed By: #### TSH, T7, LIPID, CMP #### [facility] Laboratory [address] [place] [address] Dr. Estrella CurtisCalcium [Mass/Vol]9.3 mg/dLNormal8.5-10.1[facility] Comment on above:Performed By: #### TSH, T7, LIPID, CMP #### [facility] [address] [address] [address] Estrella CurtisChloride [Moles/Vol]104 mmol/ELuqplv03-774Bhw [facility] Comment on above:Performed By: #### TSH, T7, LIPID, CMP #### [facility] [address] [address] [address] Estrella CurtisCO2 [Moles/Vol]29.5 mmol/OZicomn46.0-32.0The [facility] Comment on above:Performed By: #### TSH, T7, LIPID, CMP #### [facility] [address] [address] [address] Estrella CurtisCreatinine [Mass/Vol]0.89 mg/dLNormal0.55-1.02The [facility] CenterComment on above:Performed By: #### TSH, T7, LIPID, CMP #### [facility] [address] [address] [address] Estrella PavonGFR-AF ARGENTINE>60Normal>=60The [facility] CenterComment on above:Performed By: #### TSH, T7, LIPID, CMP #### [facility] [address] [address] [address] Estrella PavonGFR-NON AF ARGENTINE>60Normal>=60The [facility] CenterComment on above:Performed By: #### TSH, T7, LIPID, CMP #### [facility] [address] [address] [address] Estrella CurtisGlobulin (S) [Mass/Vol]3.2 g/dLNormalThe [facility] CenterComment on above:Performed By: #### TSH, T7, LIPID, CMP #### [facility] [address] [address] [address] Estrella CurtisGlucose [Mass/Vol]97 mg/xVAigyay27-270Utm [facility] Comment on above:Performed By: #### TSH, T7, LIPID, CMP #### [facility] [address] [address] [address] Estrella CurtisPotassium [Moles/Vol]4.5 mmol/LNormal3.5-5.1The [facility] Comment on above:Performed By: #### TSH, T7, LIPID, CMP #### [facility] [address] [address] [address] Estrella CurtisProtein [Mass/Vol]7.5 g/dLNormal6.4-8.2The [facility] Comment on above:Performed By: #### TSH, T7, LIPID, CMP #### [facility] [address] [address] [address] Estrella CurtisSodium [Moles/Vol]141 mmol/OSulyek151-281Dgk [facility] Comment on above:Performed By: #### TSH, T7, LIPID, CMP #### [facility] [address] [address] [address] Estrella CurtisUrea nitrogen [Mass/Vol]15.0 mg/dLNormal7.0-18.0The [facility] CenterComment on above:Performed By: #### TSH, T7, LIPID, CMP #### [facility] Laboratory [address] [place] [address] Dr. Estrella Chavez nitrogen/Creatinine [Mass ratio]16.9 mg/mgNormalThe [facility] CenterComment on above:Performed By: #### TSH, T7, LIPID, CMP #### [facility] [address] [address] [address] Estrella Newton 69-97-8206SXZ9.036 uIU/mLCritically high0.358-3.740The [facility] CenterComment on above:Performed By: #### TSH, T7, LIPID, CMP ####[facility] [address] [address]Dr. Estrella Leevid-19 PCR ([facility])on 08-66-9275SSKI-CoV-2 (COVID-19) RNA FRANCISCO J+probe Ql (Unsp spec)Not detectedNormalNOT DETECTEDThe [facility] CenterComment on above:Result Comment: When diagnostic testing is [...] for this test is supported by the Processing Inspector of Health and Human Service's declaration that [...] no longer be used).Performed By: #### CVDTBH ####[facility] [address] [address]Dr. Estrella Shelby AND B AGon 61-29-9362KJLIFNDPUKWSR BELOWNormal [facility] HospitalComment on above:Result Comment: Negative for Flu B protein antigen. Infection due to Flu B cannot be ruled out. FluB antigen in the sample may be below the detection limit of the test.Performed By: #### INFLUAB #### [facility] [address] [place] [address] Dr. Estrella Shelby AGPositiveAbnormalNEGATIVE SEE COMMENTThe [facility] on above:Performed By: #### INFLUAB #### [facility] [address] [address] [address] Estrella Lobato AGNegativeNormalNEGATIVE SEE COMMENTThe [facility] on above:Performed By: #### INFLUAB #### [facility] Laboratory [address] [address] [address] Estrella Valentin BELOWMary Rutan Hospital on above: Result Comment: NOTE: Live attenuated influenzae vaccine viruses can cause a positive result for a rapid influenza diagnostic test if administered up to 7 days prior to rapid testing.Performed By: #### INFLUAB #### [facility] Laboratory [address] [place] [address] Dr. Estrella CurtisINTERNAL CONTROLSWithin Normal LimitsNormalWithin Normal Limits The [facility] CenterComment on above:Performed By: #### INFLUAB #### [facility] [address] [place] [address] Dr. Estrella Curtis Vital Signs Date TimeVital SignValuePerforming IfgzmttpmQxhfermn67-83-6879 08:40-0400Body ieoxwy743.1 cmMichael Duarte DO Work Phone: [phone] [place], [place] 5154810-02-2025 08:40-0400Body mass index (BMI) [Ratio]37.11 kg/h9Ytlnwhc Duarte DO Work Phone: [phone])[address] [place], [place] 5154810-02-2025 08:40-0400Body kcyfmu051.15 kgMichael Duarte DO Work Phone: [phone] [place], [place] 5154807-01-2025 13:21-0400Body .1 cmMichael Duarte DO Work Phone: [phone] [place], [place] 5154807-01-2025 13:21-0400Body mass index (BMI) [Ratio]36.44 kg/s1Saumytc Duarte DO Work Phone: [phone] [place], [place] 5154807-01-2025 13:21-0400Body mrfvis47.34 kgMichael Duarte DO Work Phone: [phone] [place], [place] 5154805-16-2025 14:55-0400Diastolic blood dxcpxqwo76 mm[Hg]Steve Duarte [address] [place], [place] 80[address]05-16-2025 14:55-0400Heart rate73 /minMichael Duarte [address] [place], [place] 80[address]05-16-2025 14:55-0400Mean blood qbtvcgil247 mm[Hg]Steve Duarte [address] [place], [place] 80[address]05-16-2025 14:55-0400 Systolic blood rvoxzlbl837 mm[Hg]Steve Duarte [address] [place], [place] [address]05-16-2025 14:54-0400Heart rate64 /minMichael Duarte [address] [place], [place] 80[address]05-16-2025 14:54-0689JiM6% (BldA) [Mass fraction]96 %Steve Duarte [address]05-16-2025 14:54-0400 Diastolic blood mrfjiivd71 mm[Hg]Steve Duarte [address] [place], [place] 9523605-16-2025 14:54-0400Mean blood mm[Hg]Steve Duarte [address] [place], [place] [address]05-16-2025 14:54-0400 Systolic blood nodwxhjh413 mm[Hg]Steve Duarte [address] [place], [place] 9523605-16-2025 14:54-0400 Respiratory rate16 /minMichael Duarte [address] [place], [place] 9523605-15-2025 10:30-0400Body .1 cmMichael Duarte DO Work Phone: [phone] [place], [place] 5154805-15-2025 10:30-0400Body mass index (BMI) [Ratio]36.44 kg/r8Lncetjg Duarte DO Work Phone: [phone] [place], [place] 5154805-15-2025 10:30-0400Body dafbxr58.34 kgMichael Duarte DO Work Phone: [phone] [place], [place] 5154812-17-2024 13:45-0500Body xugtal654.1 cmMichael Duarte DO Work Phone: [phone] [place], [place] 5154812-17-2024 13:45-0500Body mass index (BMI) [Ratio]36.44 kg/e3Hjvgfov Duarte DO Work Phone: [phone])[address] [place], [place] 5154812-17-2024 13:45-0500Body ykwugc04.34 kgMichael Duarte DO Work Phone: [phone] [place], [place] 5154812-10-2024 13:55-0500Body agryts303.1 cmMichael Duarte DO Work Phone: [phone] [place], [place] 5154812-10-2024 13:55-0500Body mass index (BMI) [Ratio]36.44 kg/w4Jjwualh Duarte DO Work Phone: [phone])[address]12-10-2024 13:55-0500Body .34 kgMichael Duarte DO Work Phone: [phone] [place], [place] [address]Qqiueaggjz53-20-6621 14:24-0500Body ccokay759.1 cmMichael Duarte DO Work Phone: [phone] [place], [place] 5154812-03-2024 14:24-0500Body mass index (BMI) [Ratio]36.44 kg/p0Aqxvhgp Duarte DO Work Phone: [phone])[address] [place], [place] 5154812-03-2024 14:24-0500Body kembpk60.34 kgMichael Duarte DO Work Phone: [phone] [place], [place] 5154811-25-2024 08:50-0500Blood Pressure LocationMichael NILL [facility]11-25-2024 08:50-0500 Diastolic blood pqkjistk72 mm[Hg]Steve FRANCISL [facility]11-25-2024 08:50-0500Heart rate44 /minMichael NILL [facility]11-25-2024 08:50-0500Mean blood reeaisxm037 mm[Hg]Steve NILL [facility]11-25-2024 08:50-0500 Respiratory rate12 /minMichael NILL [facility]11-25-2024 08:50-1228PcU0% (BldA) [Mass fraction]98 %Steve NILL [facility]11-25-2024 08:50-0500 Systolic blood qmxsumlc476 mm[Hg]Steve NILL [facility]11-25-2024 08:35-0500Blood Pressure LocationMichael NILL [facility]11-25-2024 08:35-0500 Diastolic blood mm[Hg]Steve NILL [facility]11-25-2024 08:35-0500Heart rate48 /minMichael NILL [facility]11-25-2024 08:35-0500Mean blood kjvsfray89 mm[Hg]Steve NILL [facility]11-25-2024 08:35-0500 Respiratory rate14 /minMichael NILL [facility]11-25-2024 08:35-9273YdJ5% (BldA) [Mass fraction]97 %Steve NILL [facility]11-25-2024 08:35-0500 Systolic blood jnxvuoqy248 mm[Hg]Steve NILL [facility]11-25-2024 08:30-0500Blood Pressure LocationMichael NILL [facility]11-25-2024 08:30-0500 Diastolic blood upstwolh12 mm[Hg]Steve FRANCISL [facility]11-25-2024 08:30-0500Heart rate56 /minMichael NILL [facility]11-25-2024 08:30-0500Mean blood voadbkwu66 mm[Hg]Steve NILL [facility]11-25-2024 08:30-0500 Respiratory rate20 /minMichael NILL [facility]11-25-2024 08:30-8822GqW2% (BldA) [Mass fraction]95 %Steve NILL [facility]11-25-2024 08:30-0500 Systolic blood mypzyukt702 mm[Hg]Steve NILL [facility]11-25-2024 08:20-0500Body nkuizvphxba84.88 [degF]Steve FRANCISL [facility]11-25-2024 08:15-0500 Respiratory rate13 /minMichael NILL [facility]11-25-2024 08:10-0500 Respiratory rate14 /minMichael NILL [facility]11-25-2024 08:05-0500 Respiratory rate17 /minMichael NILL [facility]11-25-2024 07:10-0500Body wfhpipwzsbu94.7 [degF]Steve FRANCISL [facility]11-13-2024 15:05-0500Blood Pressure LocationMichael NILL [phone]-ProavOhiohealth Grady [facility]11-13-2024 15:05-0500Diastolic blood xykkdibs528 mm[Hg]Steve FRANCISL [phone]-YzbpiOhiohealth Grady Memorial Hospital11-13-2024 15:05-0500Heart rate76 /minMichael NILL [phone]-UwuczOhiohealth Grady Memorial Hospital11-13-2024 15:05-0500Respiratory rate16 /minMichael NILL [phone]-WoeuhOhiohealth Grady Memorial Hospital11-13-2024 15:05-0500Systolic blood mm[Hg]Steve PENNYL [phone]-GyurvOhiohealth Grady [facility]10-14-2024 13:37-0400Body mukpwe43.62 kgBridgetangela Idalia BATES Work Phone: [phone]10-14-2024 13:37-0400Diastolic blood ntsceagw87 mm[Hg]Fito Hill MD Work Phone: [phone]10-14-2024 13:37-0400Heart rate 80 /minSmono Hill MD Work Phone: [phone]10-14-2024 13:37-0400Systolic blood rlptijec817 mm[Hg]Fito Hill MD Work Phone: [phone]05-07-2024 15:18-0400Blood Pressure LocationJENNIFER AURA [facility]05-07-2024 15:18-0400Diastolic blood yjkiehmg85 mm[Hg]RAMONA AURA [facility]05-07-2024 15:18-0400Heart rate61 /minJENNIFER AURA [facility]05-07-2024 15:18-0400Respiratory rate20 /minJENNIFER AURA [facility]05-07-2024 15:18-0400Systolic blood mm[Hg]RAMONA AURA [facility] Encounters Encounter DateEncounter TypeCare ProviderFacilityStart: 04-08-2025 End: 33-50-7844apurspenqdUumyekp M Hoy MD Work Phone: -[facility]ospStart: 04-08-2025 End: 61-20-8955Eeuuspcr ReferredMaggie Almanza MD-[facility] Start: 03-19-2025 End: 13-28-7445Ztuokty encounter procedureSteve Duarte DO Work Phone: noms [facility] OrthopaedicsComment on above:S/P total knee arthroplasty, right (Primary Dx)Start: 03-19-2025 End: 38-70-1665xlkqctbddxUZFCBTN T POWERSNot AvailableStart: 02-05-2025 End: 96-39-3368nuzvgjmuwtWkugnds Kelbley PTANOMS Joshua Physical TherapyComment on above:Primary osteoarthritis of right knee (Primary Dx); Acute postoperative pain of right knee; Status post right knee replacementStart: 02-03-2025 End: 29-13-6496Bdoixt flowsheetMelissa Kelbley PT[facility] Start: 02-03-2025 End: 06-74-5691Jewyfc flowsheetMelissa Kelbley [facility] Start: 02-03-2025 End: 13-42-7943kcsantjbgeMgmjhnn Kelbley PTANOMS Joshua Physical TherapyComment on above:Primary osteoarthritis of right knee (Primary Dx); Acute postoperative pain of right knee; Status post right knee replacementStart: 01-28-2025 End: 70-20-6137Zwyllj flowsheetMelissa Kelbley PT[facility] Start: 01-28-2025 End: 65-69-8066Lqlzwf flowsheetMelissa Kelbley PT[facility] Start: 01-28-2025 End: 14-50-3257pmbbdafhvvTuxpxfu Kelbley PTANOMS Joshua Physical TherapyComment on above:Primary osteoarthritis of right knee (Primary Dx); Acute postoperative pain of right knee; Status post right knee replacementStart: 01-26-2025 End: 97-67-9712Kszgnw flowsheetMelissa Kelbley PT[facility] Start: 01-26-2025 End: 92-42-7271Irxgon flowsheetMelissa Kelbley [facility] Start: 01-26-2025 End: 24-23-8104oriqmedwltKzqzevp Kelbley PTANOMS Joshua Physical TherapyComment on above:Primary osteoarthritis of right knee (Primary Dx); Acute postoperative pain of right knee; Status post right knee replacementStart: 01-21-2025 End: 26-38-5829Bfovogyer to same day surgery phoenixMariely Artis PTANOMS Joshua Physical TherapyComment on above:Primary osteoarthritis of right knee (Primary Dx); Acute postoperative pain of right knee; Status post right knee replacement; Aftercare following right knee joint replacement surgeryStart: 01-21-2025 End: 14-15-6603rynwtnafnfNlfdhtzt Brink PTANOMS [facility] Physical TherapyStart: 01-21-2025 End: 65-62-1899Fjfxqq flowsheetMariely Artis PT[facility] Start: 01-21-2025 End: 04-89-2767Lsegtx flowsheetMartevin Artis [facility] Start: 01-19-2025 End: 58-39-0132Vfzltc flowsheetMelissa Kelbley [facility] Start: 01-19-2025 End: 62-47-8332Ofxvpb flowsheetMelissa Kelbley [facility] Start: 01-19-2025 End: 26-10-2610Nidvjyxqw to same day surgery centerMelissa Kelbley PTANOMS Joshua Physical TherapyComment on above:Primary osteoarthritis of right knee (Primary Dx); Acute postoperative pain of right knee; Status post right knee replacement; Aftercare following right knee joint replacement surgeryStart: 01-19-2025 End: 93-16-3589msaqhseixmQcnxoiv Kelbley PTANOMS [facility] Physical TherapyStart: 01-14-2025 End: 11-58-0274Eqsqvp flowsheetMelissa Kelbley [facility] Start: 01-14-2025 End: 66-95-4859Yrnagb flowsheetMelissa Kelbley [facility] Start: 01-14-2025 End: 70-07-3160zrmtjxulhvPyirrfy Kelbley PTANOMS Joshua Physical TherapyComment on above:Primary osteoarthritis of right knee (Primary Dx); Acute postoperative pain of right knee; Status post right knee replacementStart: 01-12-2025 End: 46-51-2551Jndtan flowsheetMelissa Kelbley [facility] Start: 01-12-2025 End: 53-81-3177Ggrlgz flowsheetKatherine Hutchison PTAN[facility] Start: 01-12-2025 End: 94-05-4757xspjywyukkDibzuil Kelbley PTANO Joshua Physical TherapyComment on above:Primary osteoarthritis of right knee (Primary Dx); Acute postoperative pain of right knee; Status post right knee replacementStart: 01-08-2025 End: 01-51-1120Idghzl flowsheetKatherine CRISOSTOMO CI PTStart: 01-08-2025 End: 27-84-4190Dvnskj flowsheetKatherine Hutchison PTANOMS CI PTStart: 01-08-2025 End: 68-58-6806jtlwwkqnvoCtncikb Kelbley PTANOMS CI PTComment on above:Primary osteoarthritis of right knee (Primary Dx); Acute postoperative pain of right knee; Status post right knee replacementStart: 01-06-2025 End: 56-07-5748Yfgbhx flowsheetKatherine CRISOSTOMO CI PTStart: 01-06-2025 End: 02-28-5165Jpjtnk flowsheetKatherine MACEDOMS CI PTStart: 01-06-2025 End: 39-79-5321steynwjsvqZpohjfa Kelbley PTANOMS CI PTComment on above:Primary osteoarthritis of right knee (Primary Dx); Acute postoperative pain of right knee; Status post right knee replacementStart: 01-02-2025 End: 81-59-5510Ieyaly flowsheetSammantha Gudino PTNOMS CI PTStart: 01-02-2025 End: 74-01-0088Brqaew flowsheetSammantha Gudino PTNOMS CI PTStart: 01-02-2025 End: 40-93-8559bqwjbscrfnFyygftnnz Gudino PTNOMS CI PTComment on above: Primary osteoarthritis of right knee (Primary Dx); Acute postoperative pain of right knee; Status post right knee replacementStart: 12-31-2024 End: 79-61-3073Tfpldu flowsheetNikkieissa Keldaviey PTANOMS CI PTStart: 12-31-2024 End: 19-18-3372Wfflnx flowsheetMelissa Kelbley PTANOMS CI PTStart: 12-31-2024 End: 66-55-4097zsdedarbelOsbwkqk Kelbley PTANOMS CI PTComment on above:Primary osteoarthritis of right knee (Primary Dx); Acute postoperative pain of right knee; Status post right knee replacementStart: 12-29-2024 End: 24-56-3467Arfbgd flowsheetKatherine Hutchison PTANOMS CI PTStart: 12-29-2024 End: 28-00-0499Dmusjr flowsheetKatherine Hutchison PTANOMS CI PTStart: 12-29-2024 End: 22-99-0514fntkaryfnfDqzbvow Kelbley PTANOMS CI PTComment on above:Primary osteoarthritis of right knee (Primary Dx); Acute postoperative pain of right knee; Status post right knee replacementStart: 12-26-2024 End: 98-35-4917Bmzsoo flowsheetSveliantbreonna Gudino PTNOMS CI PTStart: 12-26-2024 End: 22-02-9439Tjcold flowsheetSammantha Gudino PTNOMS CI PTStart: 12-26-2024 End: 58-61-9622Remegdatp to same day surgery [facility] Hospitalammajose m Gudino PTNOMS CI PTComment on above:Primary osteoarthritis of right knee (Primary Dx); Acute postoperative pain of right knee; Status post right knee replacement; Aftercare following right knee joint replacement surgeryStart: 12-26-2024 End: 87-19-7947utfveimmicQqypvlttv Gudino PTNOMS CI PTStart: 12-24-2024 End: 61-75-1493Vsxipa flowsheetSaud Puga PTANOMS CI PTStart: 12-24-2024 End: 51-42-9892Dokolu flowsheetSaud Puga PTANOMS CI PTStart: 12-24-2024 End: 16-93-8603tyqgznhvcvCjdbbzp Lawrence PTANOMS CI PTComment on above:Primary osteoarthritis of right knee (Primary Dx); Acute postoperative pain of right knee; Status post right knee replacementStart: 12-22-2024 End: 33-23-2451Kaowml flowsheetMarlontomasa Vivien PTANOMS CI PTStart: 12-22-2024 End: 90-44-2306Ctvrbc flowsNaomi Puga PTANOMS CI PTStart: 12-22-2024 End: 88-92-3182nbanwxzwcdRoshdqf Lawrence PTANOMS CI PTComment on above:Primary osteoarthritis of right knee (Primary Dx); Acute postoperative pain of right knee; Status post right knee replacementStart: 12-18-2024 End: 82-27-1593Mddclm Ghada Puga PTANOMS CI PTStart: 12-18-2024 End: 32-33-4591Kekote flowsheetSaud Puga PTANOMS CI PTStart: 12-18-2024 End: 61-37-1409ciattvfxilRefvxak Lawrence PTANOMS CI PTComment on above:Primary osteoarthritis of right knee (Primary Dx); Acute postoperative pain of right knee; Status post right knee replacementStart: 12-17-2024 End: 57-79-1640milfcikgtmGjoiodb Lawrence PTANOMS CI PTComment on above:Primary osteoarthritis of right knee (Primary Dx); Acute postoperative pain of right knee; Status post right knee replacementStart: 12-16-2024 End: 19-29-7224ozfaacubzzNNJKJLY T POWERSNot AvailableStart: 12-16-2024 End: 06-31-0291Xpuqolv encounter procedureMichael T Duarte DO Work Phone: noms NB ORTHOComment on above:S/P total knee arthroplasty, right (Primary Dx)Start: 12-16-2024 End: 30-69-7540yoylfmtumeBZDXYER T POWERSNot AvailableStart: 12-15-2024 End: 29-43-2727Erzbrp Ghada Puga PTANOMS CI PTStart: 12-15-2024 End: 15-30-5754Hndwkn Ghada Puga PTANOMS CI PTStart: 12-15-2024 End: 84-94-9804zxvtplbqtwEgbnmlz Lawrence PTANOMS CI PTComment on above:Primary osteoarthritis of right knee (Primary Dx); Acute postoperative pain of right knee; Status post right knee replacementStart: 12-12-2024 End: 51-11-2479Dgmhbq flowsheetKatherine Hutchison PTANOMS CI PTStart: 12-12-2024 End: 93-73-2021Pjqblp flowsheetKatherine Hutchison PTANO CI PTStart: 12-12-2024 End: 47-55-1782qcqfqjobocCktwzsa Kelbley PTANO CI PTComment on above:Primary osteoarthritis of right knee (Primary Dx); Acute postoperative pain of right knee; Status post right knee replacementStart: 12-10-2024 End: 15-84-4846Wwzwou flowsheetSyeny Gudino PTNOMS CI PTStart: 12-10-2024 End: 06-80-7830Gnnkpn flowsEitan Gudino PTNOMS CI PTStart: 12-10-2024 End: 12-77-8439Fzyagrxap to same day surgery centerSyeny Gudino PTNOMS CI PTComment on above:Primary osteoarthritis of right knee (Primary Dx); Acute postoperative pain of right knee; Status post right knee replacement; Aftercare following right knee joint replacement surgeryStart: 12-10-2024 End: 89-42-5133sxwqxjmhilChyeqcfmy Schneider PTNOMS CI PTStart: 12-06-2024 End: 30-80-3089afshsvczniLXGVAAndrés Reza AvailableStart: 12-05-2024 End: 39-45-8854Tkknrnpi SupportCierra Briscoe PT Work Phone: noms SWS PTHComment on above:Primary osteoarthritis of right knee (Primary Dx); Acute postoperative pain of right knee; Status post right knee replacementStart: 12-04-2024 End: 77-62-3288zedcppeezhZULQUGael Reza AvailableStart: 12-03-2024 End: 61-26-4351Pfxnosfr SupportCierra Briscoe PT Work Phone: noms SWS PTHComment on above:Primary osteoarthritis of right knee (Primary Dx); Acute postoperative pain of right knee; Status post right knee replacementStart: 12-01-2024 End: 45-65-0942Yeouqtvp SupportCierra Briscoe PT Work Phone: noms SWS PTHComment on above:Primary osteoarthritis of right knee (Primary Dx); Acute postoperative pain of right knee; Status post right knee replacementStart: 11-28-2024 End: 53-52-3526Gvxbekqz SupportCierra Briscoe PT Work Phone: noms SWS PTHComment on above:Primary osteoarthritis of right knee (Primary Dx); Acute postoperative pain of right knee; Status post right knee replacementStart: 11-27-2024 End: 60-87-0505zfyfzkrhbzYOEKGAndrés Reza AvailableStart: 11-26-2024 End: 26-33-1317Fzpharez SupportCierra Briscoe PT Work Phone: noms SWS PTHComment on above:Primary osteoarthritis of right knee (Primary Dx); Acute postoperative pain of right knee; Status post right knee replacementStart: 11-25-2024 End: 20-29-6497iprnrkoxsiWQRSZAndrés Reza AvailableStart: 11-24-2024 End: 17-87-5986Njvbokap SupportCierra Briscoe PT Work Phone: noms SWS PTHComment on above:Primary osteoarthritis of right knee (Primary Dx); Acute postoperative pain of right knee; Status post right knee replacementStart: 11-22-2024 End: 95-39-4380Fphsrkmp SupportCierra Briscoe PT Work Phone: noms SWS PTHComment on above:Primary osteoarthritis of right knee (Primary Dx); Acute postoperative pain of right knee; Status post right knee replacementStart: 11-20-2024 End: 44-05-9589Yuzpbjvc SupportCierra Briscoe PT Work Phone: noms SWS PTHComment on above:Primary osteoarthritis of right knee (Primary Dx); Acute postoperative pain of right knee; Status post right knee replacementStart: 11-18-2024 End: 33-96-0641Fvgiacsq SupportCierra Briscoe PT Work Phone: noms SWS PTHComment on above:Primary osteoarthritis of right knee (Primary Dx); Acute postoperative pain of right knee; Status post right knee replacementStart: 11-17-2024 End: 58-50-4381Wpunmmelv Result EncounterMichael T Duarte DO Work Phone: noms External Department UnsolicitedStart: 11-17-2024 End: 82-71-3553Revlbecyx Result EncounterMichael T Duarte DO Work Phone: noms External Department UnsolicitedStart: 11-17-2024 End: 22-93-1187Aispefawe to same day surgery centerMichael T Duarte [facility] Start: 11-17-2024 End: 99-46-0838warjzvnkoyRffiobw T PowersFacility:FTMCStart: 11-12-2024 End: 94-98-8235Hrxpnh Teresa Mcclure PT Work Phone: NOMS CI PTStart: 11-12-2024 End: 63-65-2931Iyqgaa Teresa Mcclure PT Work Phone: NOMS CI PTStart: 11-12-2024 End: 56-44-3442gxxpfxzdlzTyyxpe T Blackston PT Work Phone: NOMS CI PTComment on above:Primary osteoarthritis of right knee (Primary Dx)Start: 10-31-2024 End: 79-87-9361yotwieucegOhhutrc T PowersFacility:FTMCStart: 10-31-2024 End: 91-77-9133Bctkczc encounter procedureMichael T Duarte [facility] Start: 10-31-2024 End: 30-87-9600Lrwvoivyi Result EncounterMichael T Duarte DO Work Phone: NOMS External Department UnsolicitedStart: 10-31-2024 End: 91-74-6597Smpndatri Result EncounterMichael T Duarte DO Work Phone: NOMS External Department UnsolicitedStart: 10-30-2024 End: 20-73-8525Csykye flowsheetMichael T Duarte DO Work Phone: [phone] ORTHOStart: 10-30-2024 End: 42-97-3041Uhdxdj flowsheetMichael T Duarte DO Work Phone: [phone] ORTHOStart: 10-30-2024 End: 14-48-1282knvtpjexjiXSWSUWR T POWERSNot AvailableStart: 10-30-2024 End: 10-03-8192Rkbrqba encounter procedureMichael T Duarte DO Work Phone: [phone] NB ORTHOComment on above:Pre-op testing (Primary Dx); Bilateral primary osteoarthritis of kneeStart: 10-30-2024 End: 59-06-1404Vgkwdga encounter statusMichael T Duarte DO Work Phone: NOMS HealthcareStart: 10-30-2024 End: 26-86-3824sgeaapzeujSTNTTNE T POWERSNot AvailableStart: 06-03-2024 End: 48-46-6799Pibmgk flowsheetMichael T Duarte DO Work Phone: [phone] ORTHOStart: 06-03-2024 End: 92-62-0981Ihxntv flowsheetMichael T Duarte DO Work Phone: [phone] ORTHOStart: 06-03-2024 End: 61-75-8064ryfccapxxxKPHSCQY T POWERSNot AvailableStart: 06-03-2024 End: 71-98-8234Jvcfvco encounter procedureMichael T Duarte DO Work Phone: [phone] NB ORTHOComment on above:Bilateral primary osteoarthritis of knee (Primary Dx)Start: 05-27-2024 End: 59-65-6838Clwcal flowsheetMichael T Duarte DO Work Phone: [phone] ORTHOStart: 05-27-2024 End: 98-60-6630Qfxoga flowsheetMichael T Duarte DO Work Phone: [phone] ORTHOStart: 05-27-2024 End: 37-26-0905uqgvkiagllHJTHSII T POWERSNot AvailableStart: 05-27-2024 End: 29-86-7221Jbrekkw encounter procedureMichael T Duarte DO Work Phone: NOMS NB ORTHOComment on above:Bilateral primary osteoarthritis of knee (Primary Dx)Start: 05-20-2024 End: 32-14-0197Ajhrqub encounter procedureMichael T Duarte DO Work Phone: NOMS NB ORTHOComment on above:Bilateral primary osteoarthritis of knee (Primary Dx)Start: 05-20-2024 End: 52-03-6591scryzfdwilIOWHNUN T POWERSNot AvailableStart: 05-12-2024 End: 21-17-4592dbgplvovbuXobhykk R NILLFacility:FTMCStart: 05-12-2024 End: 06-34-3140Oceihll encounter procedureMichael R NILL [facility] Start: 04-30-2024 End: 42-50-3878oauwlpiwewJrbryvi R NILLFacility: [place]vueStart: 04-30-2024 End: 04-41-9527Cakojpi encounter procedureMichael R NILL [phone]-Crddt [facility] [place] Start: 04-30-2024 End: 97-57-6365Fdymvguou encounterMichael T Duarte DO Work Phone: noms NB ORTHOStart: 17-43-5784uwrqvemhbmJDFYOVP NICOLASA [facility] Hospitalguzman [facility] HospitalStart: 06-61-7890dmarmvuyvuNfehtev PowersFacility: BellevueStart: 03-31-2024 End: 75-41-9428lymldkhbxtHOLDQB G AFRIDIProMedica [facility] Ambulatory PPGStart: 03-31-2024 End: 89-86-0107Ztpslp outpatient new 45 minutesSoangela Hill MD Work Phone: [phone] FremontComment on above: Pelvic pain (Primary Dx); Pelvic congestion syndromeStart: 03-17-2024 End: 06-35-8196aozfrgqyfzBPASCQG M HOYMercy Tiffin HospitalStart: 03-17-2024 End: 28-33-7658Pxtqnwxgxb hospital visit by physicianSonia Morelos PTAMTHZ Physical TherapyComment on above:ArrivedStart: 03-03-2024 End: 83-76-3200qyyosormmvRHXQUBB M HOYMercy Tiffin HospitalStart: 03-03-2024 End: 02-03-9645Xalkhdsxdp hospital visit by Schuyler Morelos PTAMTHZ Physical TherapyComment on above:ArrivedStart: 02-25-2024 End: 77-02-0524Hzjbhckms encounterKimberdavid Nataliya MAProMedsearcy hospital [facility] FremontStart: 13-49-1717wdsehnyaszTYXMBB E HAVENSMercy Tiffin HospitalStart: 02-11-2024 End: 65-33-5738uqpmgffsihNRPBLWN M HOYMercy Tiffin HospitalStart: 02-11-2024 End: 28-28-1895Orftdtgzqs hospital visit by Schuyler Morelos PTAMTHZ Physical TherapyComment on above:ArrivedStart: 01-28-2024 End: 12-54-9078rfrlzzibuuSXQNEV E HAVENSMercy Tiffin HospitalStart: 01-14-2024 End: 88-02-3017ktafgwbjxvUTEDAGG M HOYMercy Tiffin HospitalStart: 01-14-2024 End: 00-42-7034Tmvdqcclez hospital visit by Schuyler Morelos PTAMTHZ Physical TherapyComment on above:ArrivedStart: 01-07-2024 End: 44-65-3797dznftlmqkhEHBVLLB M HOYMercy Tiffin HospitalStart: 12-26-2023 [facility]ulatorySt[facility]ulatory PPGStart: 12-05-2023 End: 94-47-4324Elyxmpsuji hospital visit by Jason Yoo APRN - CNM Work Phone: mthz LaboratoryStart: 12-05-2023 End: 31-62-8178rxowrfhvjrTPKHY MICHELLE SMITHMercy Blackstone HospitalStart: 11-29-2023 End: 93-43-8830ickslqfipsLDWIV CHRISTINE Torres HospitalStart: 11-29-2023 End: 63-23-6841xqpmjmaupdNTZRJML M HOYMercy Kaiser Foundation Hospitaltart: 10-23-2023 End: 81-17-8406Tnb Drop offJENNIFER E AURA [facility] Start: 10-23-2023 End: 97-29-1887Kobvivo encounter procedureJENNIFER E AURA [facility] start: 10-17-2022 End: 48-00-7448lzmmscocvqJN MAGGIE HOY .Facility:B6Cbmjd: 11-39-5832Gknswgnbv for general adult medical examination without abnormal findingsDR MAGGIE HOY . [facility] Hospitaltart: 10-06-2022 End: 87-08-8973kibutyphtcFO MAGGIE HOY .Facility:E9Udibe: 10-06-2022 End: 36-52-1742Hrcmjtmxn for general adult medical examination without abnormal findingsDR MAGGIE HOY .Facility:R6Qdggl: 08-29-2022 End: 53-54-1656kakcfqdoxjMR MAGGIE HOY .Facility:W5Igkmb: 05-25-2022 End: 59-51-9410jdzpkjlnfoHK MAGGIE HOY .Facility:C3Dhxgm: 05-17-2022 End: 33-06-1523kngcegubyeBG MAGGIE HOY .Facility:F6Bhclx: 11-30-2021 End: 85-77-8626xhqonzxnreVT MAGGIE HOY .Facility: Procedures DateProcedureProcedure DetailPerforming ClinicianStart: 17-10-6397Fqefiavweo examination knee 3 viewsMiclandonl Lucy Duarte DO Work Phone: Start: 65-08-5806Dffojmvujw examination knee 3 views Steve Lucy Duarte DO Work Phone: Start: 98-58-6904GT KNEE 1 OR 2 VIEWS RIGHTMichael T Duarte DO Work Phone: Start: 25-98-1270Ixiey knee replacementMichael Duarte Start: 09-48-5504MS WITH CULT RFLXMichael T Duarte DO Work Phone: Start: 21-24-4880Ieeppftgub examination knee 3 views Steve T Duarte DO Work Phone: Start: 94-99-1152Tpdbbyefobalnt aspir&/inj major jt/bursa w/o usMichael T Duarte DO Work Phone: Start: 61-99-9456Jnxaaerbxtjoww aspir&/inj major jt/bursa w/o usMichael T Duarte DO Work Phone: Start: 43-01-2214Wkpmiihhxnjqgq aspir&/inj major jt/bursa w/o usMichael T Duarte DO Work Phone: Start: 05-20-2024 End: 68-84-9457Itidmggwvq examination knee 3 viewsMichael T Duarte DO Work Phone: Start: 48-96-0813GeijifmxiigMzteubm Duarte DO Work Phone: Start: 09-48-4199TyirsdbwbzkLdgrlxc NILL Start: 77-17-4710Ngbzujujqx bloodSulindsay Yoo [facility] Work Phone: Start: 86-09-0475Fgvxwyelbaz observation [Identifier] in Cervix by Cyto stainSonia Morelos PTAStart: 02-95-8256XmfrxflrzinMgtmmrb Duarte DO Work Phone: Start: 31-36-4879Mpcwusjtyqjdpqvyf with dilation of urethral strictureJENNIFER AURA Start: 05-84-4476Jnhnojdasrsounluz with dilation of urethral strictureJENNIFER AURA Ligation of fallopian tubeJENNIFER AURA Repair of musculotendinous cuff of shoulderMichael NILL Superficial parotidectomyMichael NILL Plan of Treatment DateCare ActivityDetailAuthorStart: 65-71-8071Uypebqllq for malignant neoplasm of colonNOMS HealthcareStart: 93-72-5385Kxrgkpewj for malignant neoplasm of cervixNOMS HealthcareStart: 13-41-0536Udwwtuati for malignant neoplasm of cervix Pap SmearNOMS HealthcareStart: 11-17-2025 End: 40-73-1789Fnmlntn encounter obqbgtczy30/02/2026 8:30 AM EDT Office Visit [facility] [address] [place] [id number] Steve Duarte, DO [address] [place] [address] [facility] OrthopaedicsStart: 04-08-2025 Bacteria identified in Urine by CultureUrine [facility] Hospitaltart: 47-29-2360Gkekq cultureDelaware County Hospitaltart: 87-47-0799Npwqnsj ScreeningTobacco ScreeningProMercy Health St. Anne Hospitalca [facility] SystemStart: 03-19-2025 End: 84-92-0690Wtmmnsn encounter procedureNOMS ORTHOStart: 02-16-2025 Influenza vaccinationInfluenza Vaccine (#1)NOM HealthcareStart: 02-05-2025 End: 45-87-4142gvbydzwqfl94/21/2025 9:00 AM EDT Treatment [facility] [address] [facility] [address] [place] [id number] Katherine Hutchison PTANOMS [place] Physical TherapyStart: 02-03-2025 End: 74-80-3915fyxyldodfb96/19/2025 7:30 AM EDT Treatment [facility] [address] [facility] [address] [id number] Kelbley, Katherine, PTANOMS [facility] Physical TherapyStart: 01-28-2025 End: 86-00-3665ucgdunlkpj07/13/2025 7:30 AM EDT Treatment [facility] [address] [place], [id number] Katherine Hutchison PTANOMS [facility] TherapyStart: 01-26-2025 End: 04-29-6911kwbmgotbob01/11/2025 7:30 AM EDT Treatment [facility] [address] [place], [id number] Katherine Hutchison PTANOMS [facility] TherapyStart: 01-21-2025 End: 74-40-8022Qetsvnmbh to same day surgery cozudm1101/21/2025 4:00 PM EDT Treatment [facility] [address] [facility] [address] [place] [address] Mariely Artis PTA Primary osteoarthritis of right knee (Primary Dx); Acute postoperative pain of right knee; Status post right knee replacement; Aftercare following right knee joint replacement surgeryNOMS Joshua Physical TherapyComment on above:Primary osteoarthritis of right knee (Primary Dx); Acute postoperative pain of right knee; Status post right knee replacement; Aftercare following right knee joint replacement surgeryStart: 01-21-2025 End: 47-48-6949sviepsdkklMAUZ [facility] Physical TherapyStart: 01-19-2025 End: 09-77-5750jjanvodbps11/04/2025 1:30 PM EDT Treatment [facility] [address] [facility] [address] [place], [id number] Katherine Hutchison PTA ArrivedNOMS Joshua Physical TherapyComment on above:ArrivedStart: 01-19-2025 End: 36-34-8329qovsiicvrt34/04/2025 7:30 AM EDT Treatment [facility] [address] [place], [id number] Katherine Hutchison PTANOMS [facility] TherapyStart: 01-14-2025 End: 79-42-3944oilwafsjecTTZV CI PTStart: 01-12-2025 End: 07-31-9003dkjnuzaxuq81/28/2025 10:00 AM EDT Treatment [facility] [address] [place] [address] Nikkie Hutchisonissa, ONLINE USER EXPERIENCE STRATEGIST NOMS CI PTStart: 01-08-2025 End: 59-80-2045mhahbxrwqt55/24/2025 11:00 AM EDT Treatment N[facility] CI PT [address] [place] [address] Nikkie Hutchisonissa, ONLINE USER EXPERIENCE STRATEGIST [facility]OMS CI PTStart: 01-06-2025 End: 45-75-6144kgxlsooesa59/22/2025 3:00 PM EDT Treatment [facility] PT [address] [place] [address] Nikkie Hutchisonissa, ONLINE USER EXPERIENCE STRATEGIST NOMS CI PTStart: 01-02-2025 End: 27-94-5219egqrqznywh51/18/2025 7:30 AM EDT Treatment [facility] PT [address] [place] [address] Natividad Gudino PTNOMS CI PTStart: 12-31-2024 End: 93-09-7411zvearooynqBOQB CI PTStart: 12-29-2024 End: 95-18-5716xrlylicniyIBKG CI PTComment on above:ArrivedStart: 12-26-2024 End: 36-52-5345Ifyxtwktd to same day surgery doeweh8412/26/2024 8:00 AM EDT Treatment [facility] [address] [place] [address] Natividad Gudino, PT Primary osteoarthritis of right knee (Primary Dx); Acute postoperative pain of right knee; Status post right knee replacement; Aftercare following right knee joint replacement surgeryNOMS CI PTComment on above:Primary osteoarthritis of right knee (Primary Dx); Acute postoperative pain of right knee; Status post right knee replacement; Aftercare following right knee joint replacement surgeryStart: 12-26-2024 End: 31-09-4105wutkrxfbpi36/11/2025 8:00 AM EDT Treatment [facility] PT [address] [facility] [address] [place] [address] Natividad Gudino PTNOMS CI PTStart: 12-24-2024 End: 57-42-5960bparhmlllfLVSV CI PTComment on above:ArrivedStart: 12-22-2024 End: 48-80-0323vgyezinnorNHEW CI PTComment on above:ArrivedStart: 12-18-2024 End: 08-08-0849jgmpooskzq93/03/2025 8:00 AM EDT Treatment [facility] PT [address] [facility] [address] [place] [address] Saud Puga PTANOMS CI PTStart: 12-17-2024 End: 14-34-2982urtiucochz78/02/2025 7:30 AM EDT Treatment [facility] PT [address] [facility] [address] [place] [address] Saud Puga PTANOMS CI PTStart: 12-16-2024 End: 93-80-9110Viuhtsb encounter procedureNOMS NB ORTHOStart: 12-15-2024 End: 29-89-6406yczhgjvban18/30/2025 7:30 AM EDT Treatment [facility] PT [address] [facility] [address] [place] [address] Saud Puga PTANOMS CI PTStart: 12-12-2024 End: 41-17-3789pshneybxyyHUJP CI PTComment on above:Primary osteoarthritis of right knee (Primary Dx); Acute postoperative pain of right knee; Status post right knee replacementStart: 12-10-2024 End: 52-42-0851hslayswbmf46/25/2025 9:00 AM EDT Treatment [facility] PT [address] [facility] [address] [place] [address] Natividad Gudino PTNOMS CI PTStart: 30-84-8245Ealbyfeklv ScreenDepression ScreenBON [facility] Centerart: 11-12-2024 End: 48-87-2431jlyzuxppxb24/28/2025 10:00 AM EDT Evaluation [facility] PT [address] [place] [address] JordanbijanMadison Lucy, PT [address] [place] [address] NOMS CI PTStart: 10-30-2024 End: 29-82-2003Kymxlnzvre complete panel - UrineUrinalysis with reflex microscopic Lab Routine Pre-op testing Expected: 10/30/2024, Expires: 10/30/2025 [facility] Work Phone: Comment on above:Expected: 10/30/2024, Expires: 10/30/2025Start: 10-30-2024 End: 59-23-0356Lkzjvys encounter kbfyyqszm29/15/2025 10:00 AM EDT Office Visit [facility] [address] [place] [address] Steve Duarte, DO [address] [place] [address] ArrivedNOMS NB ORTHOComment on above:ArrivedStart: 06-03-2024 End: 86-35-1853Tzwnvns encounter gyzfawwtj51/17/2024 1:45 PM EST Procedure Visit [facility] [address] [place] [address] Steve Duarte, DO [address] [place] [address] NOMS NB ORTHOStart: 05-27-2024 End: 72-51-9940Eubyhfk encounter agyhwmdma72/10/2024 1:45 PM EST Procedure Visit [facility] [address] [place] [address] Steve Duarte, DO [address] [place] [address] NOMS NB ORTHOStart: 05-20-2024 End: 97-82-0870Igzjlel encounter /03/2024 2:15 PM EST Office Visit [facility] [address] [place] [address] Steve Duarte DO [address] [place] [address] NOMS NB ORTHOStart: 05-12-2024 End: 66-46-9691Muccpxv encounter ysgutpion04/25/2024 2:15 PM EST Office Visit [facility] [place] [address] Fito Hill MD [address] [place] [address] [facility] FremontStart: 05-04-2024 End: 60-49-6418Dkmwbcw encounter yihgbtbkv17/17/2024 7:30 AM EST Appointment [facility] [address] [place] [address] Fito Hill MD [address] [place] [address] [facility]: 05-01-2024 End: 63-57-7251RUY Pelvis vesselsMRV pelvis pelvic congestion with and without contrast Imaging Routine Pelvic congestion syndrome Pelvic pain Expected: 05/01/2024 (Approximate), Expires: 09/29/2024[facility] Work Phone: Comment on above:Expected: 05/01/2024 (Approximate), Expires: 09/29/2024Start: 04-07-2024 End: 47-95-7286Rbljedp encounter covzmpxhe15/21/2024 2:15 PM EDT Appointment [facility] [address] [place] [address] Sonia Morelos PTAMTHZ Physical TherapyStart: 03-17-2024 End: 86-32-4215Rxbchvg encounter zokkiepfh77/30/2024 2:30 PM EDT Appointment [facility] [address] [place] [address] Sonia Morelos PTAMTHZ Physical TherapyStart: 02-25-2024 End: 01-08-6087Qvyywkv encounter akvwkckgt47/09/2024 3:30 PM EDT Appointment [facility] [address] [place] [address] Sonia Morelos PTAMTHZ Physical TherapyStart: 14-78-1726KJILN-19 Vaccine ( season)COVID-19 Vaccine ( season)[facility]Start: 70-83-2400Ceftoabra vaccinationInfluenza VaccineOhioHealth Southeastern Medical Center SystemStart: 01-28-2024 End: 64-66-5704Tvydnav encounter fotzqoulz68/12/2024 4:15 PM EDT Appointment [facility] [address] [place] [address] Snoia Morelos PTAMTHZ Physical TherapyStart: 79-80-2799Cczqkuyjf vaccinationBON LAN[facility]IPAL HOSPITALStart: 54-29-6752XLLPH-19 Vaccine ( season)COVID-19 Vaccine ( season)[facility]ITALStart: 81-97-1517Ivpjsuqrduh Syncytial Virus (RSV) or age 60 yrs+ (1 - 1-dose 60+ series) Respiratory Syncytial Virus (RSV) or age 60 yrs+ (1 - 1-dose 60+ series)[facility]ITALStart: 08-38-4338Lngjpniyb for malignant neoplasm of breastBreast cancer screenBON LANCASTER MUNICIPAL HOSPITALStart: 50-31-3207Antwvteey for malignant neoplasm of breastMammogramNOMS HealthcareStart: 02-16-2010 Administration of varicella zoster vaccineZoster (Shingles) Vaccine (1 of 2) [facility] SystemStart: 64-07-3418Mrkzambghfao Vaccine: 65+ Years (1 of 1 - PCV)Pneumococcal Vaccine: 65+ Years (1 of 1 - PCV)[facility] HealthcareStart: 35-53-6973Ogtrprla vaccine (1 of 2)Shingles vaccine (1 of 2)[facility]Start: 06-72-2189Rredqyqjr for malignant neoplasm of colonCLINCH VALLEY MEDICAL CENTERStart: 80-19-9260Ovyrmyik screenDiabetes [facility] HospitalStart: 27-75-6717Laqpkjtwf for malignant neoplasm of cervixPap smearCLINCH VALLEY MEDICAL CENTERStart: 53-08-3382YQpZ,Tdap and Td Vaccines (1 - Tdap) DTaP,Tdap and Td Vaccines (1 - Tdap)[facility] SystemStart: 02-16-1979 DTaP/Tdap/Td vaccine (1 - Tdap)DTaP/Tdap/Td vaccine (1 - Tdap)[facility]ENTERStart: 59-74-3023Iumqh BMI ScreeningAdult BMI ScreeningSentara Albemarle Medical Centertart: 11-64-2903Yxbrnmbhf C screeningHepatitis C [facility] HospitalStart: 43-11-2564PCM screeningHIV [facility]: 93-96-6176Uadyamfirk ScreeningDepression ScreeningSentara Albemarle Medical Centertart: 12-20-4478Xxfomml ScreeningTobacco ScreeningSentara Albemarle Medical Centertart: 69-84-8606Gixre panelLipVCU Health Community Memorial Hospitalart: 69-21-4243Aroyynmmy for malignant neoplasm of colonSaint [facility]ius Hospital End: 42-57-6351EF Abdomen and Pelvis W contrast PO and WO and W contrast IVMRV abdomen pelvic congestion with and without contrast Imaging Routine Pelvic congestion syndrome Pelvic pain 1 Occurrences starting 03/31/2024 until 09/29/2024[facility] SystemComment on above:1 Occurrences starting 03/31/2024 until 09/29/2024XR Knee - right 3 ViewsXR knee 3 views right Imaging Routine Bilateral primary osteoarthritis of knee 10/30/2024 11:39 AM EDTSaint [facility] Immunizations Immunization DateImmunizationNotesCare UhrpvwclNenkxsie48-71-0773gtrsobzhm virus vaccine, unspecified formulationMichael NILL [phone]-TwoznOhiohealth [facility]ady [facility] Hospital11-30-2022 SARS-CoV-2 (COVID-19) mRNA-1273 vaccineMichael NILL [phone]-ZjlhmOhiohealth Grady Memorial Hospital10-13-2022 influenza virus vaccine, unspecified formulationNorth [facility]11-05-2021SARS-CoV-2 (COVID-19) mRNA-1273 vaccineMichael NILL [phone]-PxpnsOhiohealth Grady Memorial Hospital03-08-2021 SARS-CoV-2 (COVID-19) Ad26 vaccine, recombinantMichael NILL [phone]-ZfxlhOhiohealth Grady Memorial Hospital Payers DatePayer CategoryPayerPoly [id number]-pay2025MedicareMEDICARE [id number] [id number] 15-48-0521Ccebbmk Health Insurance [id number] 2.0.1.878098.3.579.[id number] 2.0.1.920269.3.57[id number] 2.0.1.652722.3.57[id number] 2.16.840.1.603099.3.579.[id number] 2.16.840.1.221320.3.579.2.91621-53-1901Mqsjmdw309518081 2.16.840.1.794250.3.579.[id number] 2.16.840.1.966894.3.579.2.32083-50-8717Mbcgggn07818051 2.16.840.1.189647.3.579.2.28829-10-3273Lezvpal25842175 2.16.840.1.467268.3.579.2.46602-53-2061Lpqenfe81426398 2.16.840.1.791414.3.579.2.84783-11-3399Csnuqsu22815608 2.16.840.1.206021.3.579.2.44146-45-7968Fkuhtmq17782163 2.16.840.1.680404.3.579.2.32577-98-4941Xfmybvu41856989 2.16.840.1.001641.3.579.2.20434-21-0518Ldkzjmo50889923 2.16.840.1.685282.3.579.2.48677-09-8095Gkfsyef97724940 2.16.840.1.234696.3.579.2.33802-68-7147Yomzykm57568988 2.16.840.1.200110.3.579.2.05909-47-7024Trhxthp86181833 2.16.840.1.500946.3.579.2.50031-43-6883Lftcbrh07799347 2.16.840.1.513045.3.579.2.528930-35-5924Ixxuxwe08275031 2.16.840.1.003410.3.579.2.89431-20-3020Mleuivz70497259 2.16.840.1.562992.3.579.2.20790-31-4417Zkmlnjw54904372 2.16.840.1.453257.3.579.2.26675-02-4086Fhspcdk22765705 2.16.840.1.015399.3.579.2.81423-38-8882Aibynsm87276403 2.16.840.1.926863.3.579.2.64719-66-1753Idployg33421109 2.16.840.1.805165.3.579.2.123083-11-9698Ckssrpy54381600 2.160.1.066957.3.579.2.725680-21-5579Vfokyxa31404442 2.16.840.1.032620.3.579.2.993266-84-1921Vgwetqg38790844 2.16.840.1.223633.3.579.2.215411-35-2589Iiegxur78052004 2.16.840.1.806550.3.579.2.477537-26-2605Sgoxuhh17330690 2.16.840.1.148955.3.579.2.381952-74-7788Qeuffew90406870 2.16.840.1.299970.3.579.2.521350-21-5459Tunfeqz47970672 2.16.840.1.398927.3.579.2.988971-23-8724Vdaajhd26602154 2.16.840.1.600343.3.579.2.786970-41-8905Jhkrwdv40722110 2.16.840.1.602396.3.579.2.886002-89-7620Avvfjbv69151730 2.16.840.1.496429.3.579.2.453775-05-7677Savscbe64144679 2.16.840.1.159998.3.579.2.017761-90-6331Vpxosyn45775138 2.16.840.1.932552.3.579.2.282902-78-8237Nbleiuw42108974 2.16.840.1.738759.3.579.2.323595-76-1829Zqpltus60486380 2.16.840.1.198614.3.579.2.202509-46-3176Ovqfnqz12429466 2.16.840.1.571536.3.579.2.112566-56-6459Cnbuaez42356712 2.16.840.1.350134.3.579.2.464718-51-0805Rekqhgd11673393 2.16.840.1.565493.3.579.2.303672-35-6635Votodny16826367 2.16.840.1.708839.3.579.2.197300-78-7685Doqkyre59241783 2.16.840.1.777130.3.579.2.967582-78-9893Lmfxczz35846558 2.16.840.1.316678.3.579.2.734737-24-8170Acvcvzw25738650 2.16.840.1.548024.3.579.2.151537-90-9703Ysrlgrd23808964 2.16.840.1.861890.3.579.2.406735-41-6543Ccrzleb76787214 2.16.840.1.352379.3.579.2.256649-47-9329Pqkzkkw61762801 2.16.840.1.297275.3.579.2.067519-19-8039Hkndzje66129755 2.16.840.1.695066.3.579.2.155533-23-3476Cuwkqsb96814910 2.16.840.1.779431.3.579.2.487741-68-2409Iavtcmf89058994 2.16.840.1.449652.3.579.2.390553-29-7258Cwqmfpd86413027 2.16.840.1.469571.3.579.2.940628-54-5682Ckonbhg02977361 2.16.840.1.569865.3.579.2.932118-23-9567Rokqxit55605100 2.16840.1.112173.3.579.2.559205-07-7276Dxnynbg66737510 2.16.840.1.299983.3.579.2.543107-85-5314Giprqtb26451423 2.16.840.1.458276.3.579.2.511356-99-8242Aamirtd78743130 2.16.840.1.736425.3.579.2.238883-05-6506Scycous5889099 2.16.840.1.656917.3.579.2.344801-04-5706Qxvpayn3730039 2.16.840.1.733389.3.579.2.587905-43-5734Knhuvge0323063 2.16.840.1.422353.3.579.2.944986-14-1992Mnpqqpi1643163 2.16.840.1.175700.3.579.2.841296-41-2614Fmqkoyd1126314 2.16.840.1.453639.3.579.2.089090-58-3520Lsqifbd3527915 2.16.840.1.752314.3.579.2.981486-65-7963Cdektwf9294909 2.16.840.1.480155.3.579.2.617190-86-3409Ejvruxq1473867 2.0.1.333990.3.579.2.816228-71-6240Lxvddee Health Xozddimap900322077 43-35-5352Iqhq-dnt835668736Hnebirk Health PydhcaeqmO417732192Ixyxawi0092337 2.16840.1.305387.3.579.2.580Jtetekg93334841 2.16840.1.417958.3.579.2.531 Social History DateTypeDetailFacilityStart: 06-26-2023 End: 57-14-0926Culzipw smoking statusEx-smoker (finding)[facility] Hospitaltart: 09-06-2023 End: 42-67-3812Yzi Assigned At BirthFeSelect Medical Specialty Hospital - ColumbusTobacco smoking statusNeverPremier Health [facility] [place] End: 95-41-4660Xhnpgsq of tobacco useCurrent smokerAvita Health System [facility] End: 69-49-7613Wusepqk of tobacco useCigarette SmokerOhioHealth Southeastern Medical Center System Start: 06-26-2023 End: 02-78-4330Bhnawue use and exposureSmokeless tobacco non-userBON LANCASTER MUNICIPAL HOSPITALStart: 09-06-2023 End: 87-36-8593Uaeghll of Social functionCLINCH VALLEY MEDICAL CENTERStart: 97-13-9867Pcd assigned at birthNot on fileCLINCH VALLEY MEDICAL CENTERStart: 62-99-7138Dlwgtem smoking status NHISNever smoked tobaccoCLINCH VALLEY MEDICAL CENTERStart: 10-94-5981Hqothjs intakeCurrent drinker of alcohol (finding)[facility](I/We) worried whether (my/our) food would run out before (I/we) got money to buy more.Never trueNANDA LiveStubNEGRA DOMAIN TherapeuticsAt any time in the past 12 months, were you homeless or living in senior living [including now]?NoNANDA BURGOS the grafter HEALTHStart: 61-28-6837Uistwtp CommentsocialBON SIERRA TUCSONNEGRA MER[facility] HE[facility] ST. VINCENT MEDICAL CENTERWoven Inc [facility] HOSPITALTobacco smoking status NHISTobacco smoking consumption unknownProMedica Health SystemSexual [facility] Start: 46-93-0049JcuKqhiyt (finding)[facility] East Campustart: 31-76-2631Dry Assigned At [facility] Medical Equipment Procedure CodeEquipment CodeEquipment Original TextEquipment IdentifierDatesKNEE TOTAL ARTHROPLASTY Steve Duarte DO 11/17/24 Non Biological Knee R {[id number]{[id number]{[id number] FDAStart: 11-17-2024 Functional Status YrtbNnddzfdkubVqlhpxGmohbvhk98-29-7641Ovdsjtdwoq StatusMercy Memorial Hospital11-25-2024Functional StatusN/AFGalion [facility] Hospital11-13-2024 Functional StatusN/[facility] Wgbciaxt80-79-2731Uelfpswctq StatusN/AExecutive [facility]rology of [facility] Clinical Notes 12-01-2021 to 03-19-2025 Note Date & IymuHvpgBkatxjka88-81-2008 History of Present illness Narrative* Alexandra Berrios [...] exercise, weight management and fall precautions reviewed. FPC antibiotic prophylaxis for dental or invasive work [...] 03/23/2025 12:19 PM EDT documented in this encounterSaint Alexius HospitalGatxupsnla44-25-1892 History of Present illness Narrative* Natividad Gudino, [...] well. Elevating right LE as needed. Precautions: [place] Subjective: Pt states she drove herself Pain: [...] instructed in home exercise program. 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 Date: documented in this encounterSaint Alexius HospitalEiwdpcoifq98-16-0054 History of Present illness Narrative* Natividad Gudino, PT - 12/26/2024 8:00 AM EDT Images [...] well. Elevating right LE as needed. Precautions: [place] Subjective: Pt states right knee is hurting a bit today, more in the back side of knee. Pain: 1-2/10 Objective: PT UPOC (12/10/2024) RIGHT KNEE AROM: [...] to be instructed in home exercise program. U[employer] Machine Goals: To be met in 10 weeks [...] Please sign below. Date: documented in this [facility]07-01-2025 History of Present illness Narrative* Steve Duarte DO - 12/16/2024 1:15 PM EDT Post op [...] three months for repeat x-ray and exam. 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 Numerous questions were answered. The patient is discharged in stable condition. documented in this [facility]06-20-2025 History of Present illness Narrative* Cierra Briscoe, [...] out: 8:40 am Total time: 40 minutes 04685 TherEx x 30 minutes 31016 gait training x 10 minutes Precautions: WBAT [...] gait pattern; ambulated outside onuneven surfaces at [facility] no LOB, some hesitation. Therapeutic Activity: All transfers performed at [facility] Assessment & Plan Pt making steady slow [...] AD with supervision, step to gait pattern. Prison Goals Goal 1 : Patient will demonstrate [...] to transition to OP [facility] at [facility] [place]. documented in this encounterSaint Alexius HospitalSxoruxusyy20-50-9039 History of Present illness Narrative* Cierra Briscoe, [...] out: 8:40 am Total time: 40 minutes 50321 TherEx x 30 minutes 91593 gait training x 10 minutes Precautions: WBAT Right LE; Right TKA protocol Pain Management: The patient is complaining of pain located in the Righ knee and thigh region. Painrating /10. The pain is improved by ice and [...] gait pattern; ambulated outside onuneven surfaces at [facility] no LOB, some hesitation. Therapeutic Activity: All transfers performed at [facility] indep Assessment & Plan Pt making steady [...] AD with supervision, step to gait pattern. Prison Goals Goal 1 : Patient will demonstrate [...] details: Educated to continue icing and elevating. Huger to be removed next session. [facility] [place] documented in this encounterSaint Alexius HospitalNuzhljqqsu48-86-5882 History of Present illness Narrative* Cierra Briscoe, [...] out: 8:38 am Total time: 38 minutes 73897 TherEx x 30 minutes 28549 gait training x 8 minutes Precautions: WBAT [...] adjusted. Therapeutic Activity: All transfers performed at [facility] Assessment & Plan Pt making steady slow [...] AD with supervision, step to gait pattern. Prison Goals Goal 1 : Patient will demonstrate [...] continue icing and elevating. documented in this encounterSaint Alexius HospitalDlvzwcwqpl52-03-7347 History of Present illness Narrative* Cierra Briscoe, [...] out: 8:38 am Total time: 38 minutes 22147 TherEx x 30 minutes 17266 gait training x 8 minutes Precautions: WBAT [...] Sit to Stand: mod indep Stair Negotiation: [facility] Ambulation: Patient is ambulating with [...] time: Heels apart = 0. Gait score: /12. Total Score = Balance + Gait 05/15. [...] Therapeutic Activity: All transfers performed at [facility] Assessment & Plan Pt making steady [...] AD with supervision, step to gait pattern. Prison Goals Goal 1 : Patient will demonstrate [...] continue icing and elevating. documented [facility]06-11-2025 History of Present illness Narrative* Cierra Briscoe, PT - 11/26/2024 8:00 AM EDT Physical [...] out: 8:38 am Total time: 38 minutes 19246 TherEx x 30 minutes 05761 gait training x 8 minutes Precautions: WBAT [...] SBA Sit to Stand: SBA Stair Negotiation: [facility] Ambulation: Patient is ambulating with [...] carryover. Therapeutic Activity: All transfers performed at [facility] Assessment & Plan Pt making steady [...] AD with supervision, step to gait pattern. 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 documented in this encounterSaint Alexius HospitalNhcsmgmthr71-76-7649 History of Present illness Narrative* Cierra Briscoe, [...] out: 2:34 pm Total time: 39 minutes 66948 TherEx x 30 minutes 26451 gait training x 9 minutes Precautions: WBAT [...] AD with supervision, step to gait pattern. 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 documented in this encounterSaint Alexius HospitalUoomeqwvwy72-71-6251 History of Present illness Narrative* Cierra Briscoe, [...] out: 10:40 am Total time: 40 minutes 37636 TherEx x 30 minutes 61574 gait training x 10 minutes Precautions: WBAT [...] AD with supervision, step to gait pattern. 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 documented in this encounterSaint Alexius HospitalUjfnlqmgxb43-69-6327 History of Present illness Narrative* Cierra Briscoe, [...] out: 9:40 am Total time: 40 minutes 83982 TherEx x 30 minutes 43062 gait training x 10 minutes Precautions: WBAT [...] AD with supervision, step to gait pattern. Prison Goals Goal 1 : Patient will demonstrate [...] continue icing and elevating. documented in this encounterSaint Alexius HospitalWhpcyxqyyz27-27-7839 NoteProgress Note-Physician Patient: MICHELLE RODRIGUEZ Age: 64 [...] Problems Vitamin D deficiency / SNOMED CT 77336984 / Confirmed Uterine leiomyoma / SNOMED CT 877353904 / Confirmed Other urethral stricture, female / SNOMED CT 020782652 / Confirmed Occult blood positive stool / SNOMED CT 6858689586 / Confirmed Positive fecal occult blood test / SNOMED CT 6851756579 / Confirmed Class 3 obesity / SNOMED CT 1173268555 / Confirmed Mass of parotid gland / SNOMED CT 281276227 / Confirmed Urinary frequency / SNOMED CT 208292239 / Confirmed Hypertension / SNOMED CT 8444832389 / Confirmed Hyperlipidemia / SNOMED CT 54644157 / Confirmed High cholesterol / SNOMED CT 18717843 / Confirmed History of recurrent UTI (urinary tract infection) / SNOMED CT 7969298242 / Confirmed GERD (gastroesophageal reflux disease) / SNOMED CT 211893992 / Confirmed Former smoker / SNOMED CT 36585642 / Confirmed BMI 36.0-36.9,adult / SNOMED CT 409286539 / Confirmed Resolved: Migraines / SNOMED CT 09219831 Resolved: Adrenal gland hematoma / SNOMED CT 264002057 Canceled: Vaginal odor / SNOMED CT 9978882121 Canceled: Foul smelling urine / SNOMED CT 6254041306 Canceled: Essential hypertension / SNOMED CT 51151842 Canceled: Abdominal pain / SNOMED CT 73133859 Histories Procedure history: Colonoscopy ([id number]) on 05/12/2024 at 64 Years. Cysto/UD ([id number]) on 09/23/2013 at 53 Years. Cysto/UD ([id number]) on 04/29/2003 at 43 Years. Tubal ligation (901582534). Rotator cuff repair (872210744). Superficial parotidectomy (835296113). Social History Social & Psychosocial Habits Alcohol [...] adequate air exchange. Cardiovascular: Regular rhythm. Plan [place] [employer] (ASA) physical status classification: Class III. Anesthetic Preoperative Plan: Anesthesia General, and Patient educated on benefits, alternatives and inherent risk of anesthesia including, but not all inclusive, Allergic reactions, dental damage, nerve damage and cardio-pulmonary complications and wishes to proceed with anesthetic plan.. Regional Spinal, and Adductor canal.[facility]: Result Comment: Electronically Signed By: Montez Julien Jr, DO\.br\Date and Time Signed: 11/19/24 08:03 [id number] NoteProgress Note-Physician Patient: MICHELLE RODRIGUEZ Age: 64 [...] Discharge when meets criteria ( To home ).[facility]Comment on above:Result Comment: Electronically Signed By: Montez Julien Jr, DO\Date and Time Signed: 11/19/24 08:03 EDT 11-18-2024 [...] out: 12:00 PM Total time: 45 minutes 09981 PT Eval x 20 minutes 73374 TherEx x 10 minutes 23456 gait training x 15 minutes Precautions: WBAT [...] AD with supervision, step to gait pattern. Prison Goals Goal 1 : Patient will demonstrate [...] mobility to achieve PLOF. documented in this [facility]06-02-2025 Hospital Discharge instructions Patient Education 11/17/2024 15:04:28 [...] as possible. If the spirometer includes a kids activities coach indicator, use this to guide you [...] provider. Document Revised: 08/23/2020 Document Reviewed: 08/23/2020 [employer] Patient Education 2023 [employer] 11/17/2024 15:04:22 Knee Cryocuff Patient Instructions [...] as possible. If the spirometer includes a kids activities coach indicator, use this to guide you [...] provider. Document Revised: 08/23/2020 Document Reviewed: 08/23/2020 Elsevier Patient Education 2023 [employer] 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 It is therefore advised not to drive until after yourfirst office visit following surgery FOLLOW-UP OFFICE VISIT: Steve Duarte, DO [facility] [address] [place] [address] [phone] Reviewed: 07-12 Follow Up Care 10/30/2024 11:38:19 With:MARIA Guadarrama Address: [address] [place] [phone]- Business (1) When:12/16/2024 13:30:00 Comments:Keep scheduled appointment [facility] [phone] NoteInterdisciplinary Note - OT Pt is seen this date for OT evaluation following R TKA with Dr. Duarte. [facility] score: . Pt demonstrates ability to safely complete functional transfers and mobility with FWW for support with SBA/CGA and is CGA for ADL tasks. Pt has been educated regarding joint protection and home safety. Pt has spouse for support at d/c and will have HH services.[facility]06-02-2025 NotePatient Education - Text How to [...] possible. ??? If the spirometer includes a kids activities coach indicator, use this to guide you [...] provider. Document Revised: 08/23/2020 Document Reviewed: 08/23/2020 [employer] Patient Education ? 2023 [employer] Pulmonary Medicine How to Use an Incentive Spirometer An incentive spirometer is a tool that measures how well you are filling your lungs with each breath. Learning to take long, deep breaths using this tool can help you keep your lungs clear and active. This may help to reverse or lessen your c (more content not included)...[facility]06-02-2025 Evaluation + Plan noteExtracted from:Title:Op Note skeletonAuthor:Steve Duarte DO TDate:11/17/24 Impression and Plan Diagnosis Pre-op dx-rt knee oa/pain Post-op dx-same Procedure-rt tka Anesthesia-spinal c block EBL-0 TT-see nn To Recovery Room in stable and satisfactory condition..[facility] 05-27-2025 NotePatient Education - Text [place], [place] [facility] DISCHARGE INSTRUCTIONS TOTAL KNEE [...] continue at home, possible with the assistant passenger locomotive engineer of Home Health Physical Therapy or in [...] Driving too soon, 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 It is therefore advised not to drive until after yourfirst office visit following surgery FOLLOW-UP OFFICE VISIT: Steve Duarte DO [facility] [address] [place] [address] Reviewed: 07-12[facility]05-27-2025 NoteProgress Note-Physician Patient: MICHELLE RODRIGUEZ Age: [...] specify), Reason: Post-op evaluation, No, in PACU, pp_set_radiology_subspecialty,[facility], 11/17/24 12:30:00 EDT Ordered: Zofran 4 mg/2 mL Injection,4 mg = 2 mL, Injection, IV Push, q6hr PRN Nausea/Vomiting, Routine, Start jacqueline (more content not included)...[facility] HospitalComment on above:Result Comment: Electronically Signed By: Steve Duarte DO\.br\Date and Time Signed: 11/11/24 17:10 [id number] History of Present illness Narrative* Eliane Yoo [...] is aware that results cannot be guaranteed. FPC antibiotic prophylaxis with dental or invasive surgical [...] 11/03/2024 3:25 PM EDT documented in this encounterSaint Alexius HospitalVzjmqcavlt87-64-1084 History of Present illness Narrative* Eliane Yoo [...] having pain or concerns. documented in this encounterSaint Alexius [id number] History of Present illness Narrative* Eliane Yoo [...] bilateral knee GelSyn injection. documented in this encounterSaint Alexius HospitalKbhfdlihmb41-80-1287 History of Present illness Narrative* Eliane Yoo [...] second bilateral knee GelSyninjection. documented in this encounterSaint Alexius HospitalCgypxmpqxl05-69-1849 Evaluation + Plan note Extracted from:Title:JOANA Post-operative Note---GeneralAuthor:Montez Ford MD. Date:05/12/24 Plan Transfer/Discharge: Transfer/Discharge Discharge when meets criteria ( To home ). Extracted from:Title:JOANA Pre-operative Note uthor:Montez Ford MDDate: 05/12/24 Plan [place] [employer] Anesthesiologists (ASA) physical status classification: Class III. Anesthetic Preoperative Plan: Anesthesia General.[facility] [phone] Hospital Discharge instructions Patient Education 05/12/2024 08:26:48 [...] unsweetened, w/added ascorbic acid 1 cup 0.5 Hawthorne 1 cup 0.7 Vegetables Cooked Green beans 1 cup 4.0 Carrots 1/2 cup sliced 2.3 Peas 1 cup 8.8 Potato (baked, with skin) 1 medium potato 3.8 Raw Garnett (with peel) 1 cucumber 1.5 Lettuce 1 [...] 8.7 Peanuts 1/2 cup 7.9 Chart from [facility] 2013. SEEK IMMEDIATE MEDICAL CARE IF: [...] of Agriculture (USDA) National Nutrient Database at: http://www.DP[employer].usda.gov/fnic/foodcomp/search/ Created using data from the USDA National Nutrient Database for Standard Reference. Available at http://www.[employer].gov/fnic/foodcomp/search/. Information adapted from: [facility] Patient Information 2009 [employer]. Memorial Medical CenterLot78 2012 http://www.Envysion/contents/lfqisfunbzmz-rscfhen-ckwdgl-the-basics 05/12/2024 08:26:46 Colonoscopy, Care After Surgery Salam [...] the day. Follow Up Care 04/30/2024 15:54:15 With:Stvee VAZQUEZ Address: [address] [place] [address], [address] [place] [phone] Business (1) When: only if needed [facility] 11-25-2024 NoteProgress Note-Physician Patient: MICHELLE RODRIGUEZ Age: 64 years Sex: Female : 1960 Associated Diagnoses: None Author: Eh BATES, Montez Clemons Postoperative Information Postoperative disposition: Postoperative disposition: To PACU. Optimetrix number: Optimetrix number [id number]. Anesthetic utilized: General. Health Status Allergies: Allergic [...] Discharge when meets criteria ( To home ).[facility] HospitalComment on above:Result Comment: Electronically Signed By: Montez Ford MD\.br\Date and Time Signed: 05/12/24 08:37 EST 05-12-2024 NoteProgress Note-Physician Patient: MICHELLE RODRIGUEZ MRN: [id number] [...] Problems Adrenal gland hematoma / SNOMED CT 297702013 / Confirmed BMI 36.0-36.9,adult / SNOMED CT 769423571 / Confirmed Class 3 obesity / SNOMED CT 9302777805 / Confirmed Former smoker / SNOMED CT 77856119 / Confirmed GERD (gastroesophageal reflux disease) / SNOMED CT 690716196 / Confirmed History of recurrent UTI (urinary tract infection) / SNOMED CT 0343272809 / Confirmed Hyperlipidemia / SNOMED CT 39518768 / Confirmed Hypertension / SNOMED CT 7967043101 / Confirmed Mass of parotid gland / SNOMED CT 749697303 / Confirmed Migraines / SNOMED CT 30948784 / Confirmed Occult blood positive stool / SNOMED CT 1046310491 / Confirmed Other urethral stricture, female / SNOMED CT 036822887 / Confirmed Positive fecal occult blood test / SNOMED CT 7333014063 / Confirmed Urinary frequency / SNOMED CT 882142230 / Confirmed Uterine leiomyoma / SNOMED CT 825848633 / Confirmed Vitamin D deficiency / SNOMED CT 64419089 / Confirmed Canceled: Abdominal pain / SNOMED CT 54539516 Canceled: Essential hypertension / SNOMED CT 14314775 Canceled: Foul smelling urine / SNOMED CT 5190850044 Canceled: Vaginal odor / SNOMED CT 7977183985, Active Problems (16) Adrenal gland hematoma BMI [...] Hyperlipidemia Mother Leukemia Grandparent Procedure history: Cysto/UD (734136952) on 09/23/2013 at 53 Years. Cysto/UD (461565105) on 04/29/2003 at 43 Years. Tubal ligation (466760885). Rotator cuff repair (543484858). Superficial parotidectomy (891630228). Social History Social & Psychosocial Habits Alcohol 04/30/2024 Risk Assessment: Denies Alcohol Use Substance Abuse 04/30/2024 Risk Assessment: Denies Substance Abuse Tobacco 04/30/2024 Tobacco Use: Forme (more content not included)...[facility] HospitalComment on above:Result Comment: Electronically Signed By: Eh BATES, Montez Clemons\.lloyd\Date and Time Signed: 05/12/24 08:29 [id number] NoteColonoscopy Procedure Report Patient: MICHELLE RODRIGUEZ Age: 64 years Sex: Female : 1960 Associated Diagnoses: None Author: NILL MD, Steve R Pre-Procedure Procedure Date 05/12/2024 08:25:00 . Procedure [...] the diverticulosis is moderate. Images Procedure images: [id number] anal canal rectal veins sigmoid diverticulosis ileocecal valve appendiceal orifice . Post-Procedure Complications: none. Estimated blood loss: none. Specimens: none. Devices/ implants: none left in place. Impression and Plan Diagnosis: Diverticulosis of sigmoid colon (LRR58-TE K57.30, Discharge, Medical). Course: Progressing as expected. Recommendations: Repeat colonoscopy:: In 10 years. Follow-up:: if problems/questions. Diet:: Regular diet. Medication resumption:: Continue current medications. Return to activities:: After 24 hours. Education and Follow-up: Counseled: Family.[facility] HospitalComment on above:Other Comment: Missing Attachment - attachment storage system not supported [id number] Can be viewed in source system Missing Attachment - attachment storage system not supported [id number] Can be viewed in source systemMissing Attachment - attachment storage system not supported [id number] Can be viewed in source systemMissing Attachment - attachment storage system not supported [id number] Can be viewed in source systemMissing Attachment - attachment storage system not supported [id number] Can be viewed in source systemMissplunkett memorial hospital Attachment - attachment storage system not supported [id number] Can be viewed in source [id number] NotePatient Education - Text Diverticulosis Many people [...] unsweetened, w/added ascorbic acid 1 cup 0.5 Hawthorne 1 cup 0.7 Vegetables Cooked Green beans 1 cup 4.0 Carrots 1/2 cup sliced 2.3 Peas 1 cup 8.8 Potato (baked, with skin) 1 medium potato 3.8 Raw Garnett (with peel) 1 cucumber 1.5 Lettuce 1 [...] 8.7 Peanuts 1/2 cup 7.9 Chart from UpDate 2013. SEEK IMMEDIATE MEDICAL CARE IF: You [...] Information adapted from: ExitCare??? Patient Information ???2009 [employer]. UpToDate 2013 http://www.[employer].Action/contents/wzldbxzrbcnw-ehmscul-andjva-the-basics Colonoscopy Care After Surgery Please read the [...] by your doctor. Beg (more content not included)...[facility]11-25-2024 Note History and Physical Patient: MICHELLE RODRIGUEZ Age: 64 years Sex: Female : 1960 Associated Diagnoses: None Author: Steve VAZQUEZ MD Subjective no changes to H & PFTrinity Health System East CampusComment on above:Result Comment: Electronically Signed By: Steve VAZQUEZ MD\.br\Date and Time Signed: 05/12/24 08:25 [id number] Telephone encounter Note* Telephone Encounter - Pia Car - 05/02/2024 8:03 AM EST Forwarded message to emily to authorize [facility] [id number] Miscellaneous Notes* Telephone Encounter - Pia Car [...] to auth? (Mtp pt) documented in this encounterSaint Alexius HospitalWjkxuclrtm50-54-6014 Telephone encounter Note* Telephone Encounter - Tawana Dawn MA - 05/01/2024 4:48 PM EST Per MTP - okay to auth gel injections. She will need xrays at first inj appt. [facility] HospitalEilfesgmvr63-09-6767 NoteGeneral Surgery Office/Clinic Note Chief Complaint consultation [...] lung: Father. Immunizations V (more content not included)...[facility] HospitalComment on above: Result Comment: Electronically Signed By: GEORGE BATES, Steve Pantoja\Date and Time Signed: 04/30/24 15:44 [id number] Telephone encounter Note* Telephone Encounter - Pia Joceline - 04/30/2024 9:37 AM EST ZURDO/Gelsyn 3 09/06/23, lxr 06/26/23 Asking to have visco authorized and try to have before end of year. See for appt first? Or try to auth? (Mtp pt) [facility] HospitalOysxvpdewv78-87-6172 History of Present illness Narrative* Fito Hill MD - 03/31/2024 1:30 PM EDT Images from the original note were not included. [facility] [address] [address] Subjective: Patient ID: Michelle Rodriguez is a [...] the legs. She saw a Urologist in [place] and was told she had a vaginal [...] Resource Strain: Low Risk (11/29/2023) Received from [facility] Overall Financial Resource Strain (CARDIA) Difficulty of Paying Living Expenses: Not hard at all Food Insecurity: No Food Insecurity (11/29/2023) Received from [facility] Hunger Vital Sign Worried About Running Out of Food in the Last Year: Never true Ran Out of Food in the Last Year: Never true Transportation Needs: Unknown (11/29/2023) Received from [facility] PRAPARE - Transportation Lack of Transportation (Medical): Not on file Lack of Transportation (Non-Medical): No Physical Activity: Not on file Stress: Not on file Social Connections: Not on file Interpersonal Safety: Not on file Housing Instability: Unknown (11/29/2023) Received from [facility] Housing Stability Vital Sign Unable to [...] visit: Pelvic congestion syndrome - [facility] [place] Plan: Plan I was able to review [...] understanding. Fito Hill MD [facility] Miscellaneous Notes* Telephone Encounter - Kathe An MA - 02/25/2024 1:59 PM EDT I called referring physician, Dr Jose Baldwin's office and spoke with Sabine and told her that patient did not show for CUSTOMER ACCOUNT TECHNICIAN in [place] with Dr Hill documented in this encounterAv[facility]24 Telephone encounter Note* Telephone Encounter - Kathe An MA - 02/25/2024 1:59 PM EDT I called referring physician, Dr Jose Baldwin's office and spoke with Sabine and told her that patient did not show for CUSTOMER ACCOUNT TECHNICIAN in [place] with Dr Hill [facility]05[facility]24 Hospital Discharge instructions Patient Education 10/23/2023 [...] Follow these instructions at home: Medicines Take dwfi-zih-pfxywgb and prescription medicines only as told by [...] Watch your condition for any changes. Take vfyt-mqs-tiaunlu and prescription medicines only as told by [...] provider. Document Revised: 07/23/2020 Document Reviewed: 10/13/2019 [employer] Patient Education 2022 [employer]. Follow Up Care 10/15/2023 10:31:47 With:RAMONA CHAVARRIA PA-C, URL Address: [address] [place] [address] [phone] When: Unknown [facility] 05-07-2024 Evaluation + Plan note Diagnostic Tests Pending * Gynecological Culture 10/23/23 [facility]06-16-2022 NotePROCEDURE: XR FOOT RT MIN 3 VIEWS HISTORY: Pain in right foot ; acute second metatarsal pain since twisting injury 4 days ago COMPARISON: None. FINDINGS: BONES:No fracture, acute abnormality, or significant arthropathy. SOFT TISSUES:No visible soft tissue swelling. EFFUSION:None visible. OTHER: Negative. IMPRESSION: 1. No acute bone abnormality. 2. Minimal degenerative changes. Electronically authenticated by: ANOOP FELIX Date: 2021-12-01 11:20[facility] No data available for this section [facility] evaluation + Plan note Future Appointments Appointment Date:05/12/2024 08:00:00 AM Scheduled Provider: Location:[facility] Appointment Type:Surgery FT [facility] [place] Evaluation + Plan note Future Appointments Appointment Date:11/17/2024 12:30:00 PM Scheduled Provider: Location:[facility] Appointment Type:Surgery FT [facility] Evaluation note* Diagnosis Bilateral primary osteoarthritis of knee- Primary documented in this encounter [facility] HealthcareEvaluation note* Diagnosis Bilateral primary osteoarthritis of knee- Primary documented in this encounter [facility] HealthcareEvaluation note* Diagnosis Bilateral primary osteoarthritis of knee- Primary documented in this encounter [facility] HealthcareEvaluation note* Diagnosis Pelvic pain- Primary Pelvic congestion syndrome [facility]* Diagnosis Pre-op testing- [...] joint replacement surgery documented in this encounter [facility] HealthcareEvaluation note* Diagnosis Primary osteoarthritis of right knee- Primary Acute postoperative pain of right knee Status post right knee replacement documented in this encounter [facility] HealthcareEvaluation note* Diagnosis S/P total knee arthroplasty, right- Primary documented in this encounter [facility] HealthcareEvaluation noteNo assessment information availableSelect Medical Specialty [facility] Work Phone: Hospital Discharge instructions No data available for this section [facility] HospitalInstructionsNot on filedocumented in this encounter [facility] SystemInstructionsNot on filedocumented in this encounter [facility] SystemProgress note No data available for this section [facility] reason for referral (narrative)No reason for referral information availableSelect Medical Special[facility] Work Phone: Reason for visit Narrative* Consultation (Routine) - ClosedSpecialtyDiagnoses / ProceduresReferred By ContactReferred To Contact Physical Therapy Diagnoses Primary osteoarthritis of right knee Procedures [place] OFFICE/OUTPATIENT NEW HIGH MDM 60 MINUTES Steve Duarte, DO [address] [place] [address] Phone: tel: fax: Madison Mcclure, PT [address] [address] Phone: tel: fax: Referral IDStatusReasonStart DateExpiration DateVisits RequestedVisits [id number] Required [facility] HealthcareReason for visit Narrative* Rehabilitation - Outpatient (Routine) - AuthorizedSpecialtyDiagnoses / ProceduresReferred By ContactReferred To ContactPhysical Therapy Diagnoses Aftercare following right knee joint replacement surgery Procedures [place] OFFICE/OUTPATIENT NEW HIGH MDM 60 MINUTES Steve Duarte, DO [address] [place] [address] Phone: tel: fax: Natividad Gudino PT Referral IDStatusReasonStart DateExpiration DateVisits RequestedVisits [id number] Consult and Treat 9[address] [facility] HealthcareReason for visit Narrative* Rehabilitation - Outpatient (Routine) - Pending ReviewSpecialtyDiagnoses / ProceduresReferred By ContactReferred To ContactPhysical Therapy Diagnoses Aftercare following right knee joint replacement surgery Procedures [place] OFFICE/OUTPATIENT NEW HIGH MDM 60 MINUTES Steve Duarte, DO [address] [place] [address] Phone: tel: fax: Natividad Gudino PT Referral IDStatusReasonStart DateExpiration DateVisits RequestedVisits [id number] Review Consult and Treat [facility] [...] Found Advance Directives No Advanced Directives Records Found Advance Directive Response Recorded Date/ Time Advance Directives No February 6:48am Reason for Referral SpecialtyDiagnoses / ProceduresReferred By ContactReferred To ContactRadiology Diagnoses Pelvic congestion syndrome Pelvic pain Procedures MRV abdomen pelvic congestion with and without contrast Fito Hill MD [address] [facility] [address] [place] [address] [address] Referral IDStatusReasonStart DateExpiration DateVisits RequestedVisits [id number] / ProceduresReferred By ContactReferred To ContactRadiology Diagnoses Pelvic congestion syndrome Pelvic pain Procedures MRV pelvis pelvic congestion with and without contrast Fito Hill MD [address] [facility] [address] [place] [address] [address] Referral IDStatusReasonStart DateExpiration DateVisits RequestedVisits [id number] Additional Source Comments INFORMATION SOURCE (unrecogn ized section and content) DATE CREATED AUTHOR 10/25/2022 [facility] DATE CREATED AUTHOR AUTHOR'S ORGANIZ ATION 12/07/2023 [facility] DATE CREATED AUTHOR AUTHOR'S ORGANIZ ATION 03/18/2024 [facility] DATE CREATED AUTHOR AUTHOR'S ORGANIZ ATION 04/02/2024 [facility] DATE CREATED AUTHOR AUTHOR'S ORGANIZ ATION 11/02/2024 [facility] DATE CREATED AUTHOR AUTHOR'S ORGANIZ ATION 11/17/2024 [facility] DATE CREATED AUTHOR AUTHOR'S ORGANIZ ATION 11/20/2024 [facility] DATE CREATED AUTHOR AUTHOR'S ORGANIZ ATION 11/22/2024 [facility] DATE CREATED AUTHOR AUTHOR'S ORGANIZ ATION 03/23/2025 [facility] DATE CREATED AUTHOR AUTHOR'S ORGANIZ ATION 04/12/2025 [facility] Patient Care team informatio n (unrecognized section and content) Team MemberRelationshipSpecialtyStart DateEnd Date Maggie Baldwin MD [address] [place] [address] PCP - GeneralFamily Medicine06/25/23Team MemberRelationshipSpecialtyStart DateEnd Date Maggie Baldwin MD [address] [facility] [place] [address] PCP - GeneralFamily Medicine06/25/23Team MemberRelationshipSpecialtyStart DateEnd Date Maggie Baldwin MD [address] [facility] [place] [address] PCP - GeneralFamily Medicine06/25/23Team MemberRelationshipSpecialtyStart DateEnd Date Maggie Baldwin MD [address] [facility] [place] [address] PCP - GeneralFamily Medicine06/25/23Team MemberRelationshipSpecialtyStart DateEnd Date Maggie Baldwin MD [address] [facility] [place] [address] PCP - GeneralFamily Medicine06/25/23Team MemberRelationshipSpecialtyStart DateEnd Date Maggie Baldwin MD [address] [facility] [place] [address] PCP - GeneralFamily Medicine06/25/23Team MemberRelationshipSpecialtyStart DateEnd Date Maggie Baldwin MD [address] [place] [address] PCP - General09/02/13Team MemberRelationshipSpecialtyStart DateEnd Date Maggie Baldwin MD [address] [place] [address] PCP - General/Team MemberRelationshipSpecialtyStart DateEnd Date Maggie Baldwin MD [address] [facility] [place] [address] PCP - General3Team MemberRelationshipSpecialtyStart DateEnd Date Maggie Baldwin MD [address] [facility] [place] [address] PCP - GeneralFamily Medicine10/30/24Team MemberRelationshipSpecialtyStart DateEnd Date Maggie Baldwin MD [address] [facility] [place] [address] PCP - GeneralFamily Medicine10/30/24Team MemberRelationshipSpecialtyStart DateEnd Date Maggie Baldwin MD [address] [facility] [place] [address] PCP - GeneralFamily Medicine10/30/24Team MemberRelationshipSpecialtyStart DateEnd Date Maggie Baldwin MD [address] [facility] [place] [address] PCP - GeneralFamily Medicine10/30/24Team MemberRelationshipSpecialtyStart DateEnd Date Maggie Baldwin MD [address] [facility] [place] [id number] PCP - GeneralFamily Medicine10/30/24Team MemberRelationshipSpecialtyStart DateEnd Date Maggie Baldwin MD [address] [facility] [place] [address] PCP - GeneralFamily Medicine10/30/24Team MemberRelationshipSpecialtyStart DateEnd Date Maggie Baldwin MD [address] [facility] [place] [address] PCP - GeneralFamily Medicine10/30/24Team MemberRelationshipSpecialtyStart DateEnd Date Maggie Baldwin MD [address] [facility] [place] [address] PCP - GeneralFamily Medicine10/30/24Team MemberRelationshipSpecialtyStart DateEnd Date Maggie Baldwin MD [address] [facility] [place] [address] PCP - GeneralFamily Medicine10/30/24Team MemberRelationshipSpecialtyStart DateEnd Date Maggie Baldwin MD [address] [facility] [place] [address] PCP - GeneralFamily Medicine10/30/24Team MemberRelationshipSpecialtyStart DateEnd Date Maggie Baldwin MD [address] [facility] [place] [address] PCP - GeneralFamily Medicine10/30/24Team MemberRelationshipSpecialtyStart DateEnd Date Maggie Baldwin MD [address] [facility] [place] [address] PCP - GeneralFamily Medicine10/30/24Team MemberRelationshipSpecialtyStart DateEnd Date Maggie Baldwin MD [address] [facility] [place] [address] PCP - GeneralFamily Medicine10/30/24Team MemberRelationshipSpecialtyStart DateEnd Date Maggie Baldwin MD [address] [facility] [place] [address] PCP - GeneralFamily Medicine10/30/24Team MemberRelationshipSpecialtyStart DateEnd Date Maggie Baldwin MD [address] [facility] [place] [address] PCP - GeneralFamily Medicine10/30/24Team MemberRelationshipSpecialtyStart DateEnd Date Maggie Baldwin MD [address] [facility] [place] [address] PCP - GeneralFamily Medicine10/30/24Team MemberRelationshipSpecialtyStart DateEnd Date Maggie Baldwin MD [address] [facility] [place] [address] PCP - GeneralFamily Medicine10/30/24Team MemberRelationshipSpecialtyStart DateEnd Date Maggie Baldwin MD [address] [facility] [place] [address] PCP - GeneralFamily Medicine10/30/24Team MemberRelationshipSpecialtyStart DateEnd Date Maggie Baldwin MD [address] [facility] [place] [address] PCP - GeneralFamily Medicine10/30/24Team MemberRelationshipSpecialtyStart DateEnd Date Maggie Baldwin MD [address] [place] [address] [facility] - [facility]/24Team MemberRelationshipSpecialtyStart DateEnd Date Maggie Baldwin MD [address] [place] [address] PCP - [facility]10/30/24Team MemberRelationshipSpecialtyStart DateEnd Date Maggie Baldwin MD [address] [facility] [place] [address] PCP - [facility]10/30/24Team MemberRelationshipSpecialtyStart DateEnd [facility] Maggie Baldwin MD [address] [place] [address] PCP - [facility]10/30/24 Team Status: Active Member Role/Relationship Status Dates Maggie Baldwin MD Primary Care Provider Active Team Status: Inactive Member Role/Relationship Status Dates Maggie Baldwin MD Primary Care Provider Active Start: April 08, 2025 End: April 08, 2025Dokali Baldwin MDAttending ProviderActiveStart: April 08, 2025 End: April 08, 2025 Reason for Visit (unrecogniz ed section and content) ReasonCommentsPainReasonCommentsFollow-upReasonCommentsCirculatory ProblemNew patient- testing done, pt c/o pain in mid lower abdominal area.Specialty Diagnoses / ProceduresReferred By ContactReferred To ContactVascular Surgery Diagnoses Pelvic congestion syndrome Maggie Baldwin MD [address] [place] [address] [facility] [address] [place] [address] Referral IDStatusReasonStart DateExpiration DateVisits RequestedVisits [id number] Review Specialty Services Required [id number]-npUvufxqNqbbymvu Post-opR TKA 11/17/24 Goals (unrecognized section and content) Goals may be documented in a n alternate section FOR RECORDS PERTAINING TO PATIENTS WHO ARE [...] BE BASED ON THE PRIMARY CLINICAL RECORDS. [facility] [employer] [facility]. provides no warranty or guarantee of the accuracy or completeness of information in this document.
== END 2025-04-13 08:43 | disposition home or self-care (01) ==
LOC: US 08:42
PROVIDERS: PCP Family Medicine; Visit Provider Family Medicine
DX: M54.50 Low back pain, unspecified (principal); M85.88 Other specified disorders of bone density and structure, other site; M51.369 Other intervertebral disc degeneration, lumbar region without mention of lumbar back pain or lower extremity pain
CPT/HCPCS: 72100; 76770